=== PATIENT | female | born 1965 | race Two or more races ===

== ENCOUNTER 2020-06-11 08:34 | Day surgery (SDC) | payer OTHER, SELFPAY ==
[2020-06-04 13:52] VITALS: BMI 25.0
--- NOTE | 2020-06-10 10:11 | P.CONAN_ITS ---
Documented by User: Debra Apple 06/10/20 10:21 HPI - Anesthesia Eval Consult details Narrative: 55yo F for EGD and Colonoscopy [facility] Past Medical History Medical History (Updated 06/10/20 @ 10:20 by Debra Apple) Anxiety Asthma Difficulty swallowing Elevated cholesterol GERD (gastroesophageal reflux disease) History of bipolar disorder History of depression History of kidney stones HTN (hypertension) Hx of migraines Leukocytosis PONV (postoperative nausea and vomiting) Pulmonary nodule Thrombocytosis Thyroid cancer Thyroid nodule Vitamin D deficiency Surgical History Surgical History History of thyroid surgery History of total abdominal hysterectomy Hx of appendectomy Hx of cholecystectomy S/P excision of lipoma History of Problems with Anesthesia: Yes (PONV) Social History Social History (Updated 06/10/20 @ 10:15 by Debra Apple) Smoking Status: Current every day smoker Have you been hit, kicked, punched, or otherwise hurt by someone within the past year? If so, by whom?: No Advance Directives: No Advance Directives Information Provided: No Advance Directives on File: No Recently lost weight without trying: No Meds Allergies Allergy/AdvReac Type Severity Reaction Status Date / Time aspirin [ASPIRIN] Allergy Unknown ABD PAIN Unverified 06/04/20 13:35 morphine [MORPHINE] Allergy Unknown ABD PAIN Unverified 06/04/20 13:35 Sulfa (Sulfonamide Allergy Unknown HIVES Unverified 06/04/20 13:35 Antibiotics) [SULFA (SULFONAMIDE ANTIBIOTICS)] Home Medications Medication Instructions Recorded Confirmed Type amlodipine 5 mg PO DAILY 06/04/20 06/04/20 History atorvastatin 40 mg PO DAILY 06/04/20 06/04/20 History azelastine 1 spray INTRANASAL BID 06/04/20 06/04/20 History calcium citrate-vitamin D3 1 tab PO DAILY 06/04/20 06/04/20 History [Citracal plus D] chlorthalidone 25 mg PO DAILY 06/04/20 06/04/20 History cholecalciferol (vitamin D3) 25 mcg PO DAILY 06/04/20 06/04/20 History [Vitamin D3] conjugated estrogens [Premarin] 0.625 mg VAGINAL DAILY 06/04/20 06/04/20 History diclofenac potassium 50 mg PO BID 06/04/20 06/04/20 History fluticasone propionate [Flovent] 1 puff INHALATION BID 06/04/20 06/04/20 History gabapentin 100 mg PO TID 06/04/20 06/04/20 History lisinopril 10 mg PO DAILY 06/04/20 06/04/20 History montelukast 10 mg PO BEDTIME 06/04/20 06/04/20 History montelukast [Singulair] 10 mg PO BEDTIME 06/04/20 06/04/20 History nystatin 100,000 unit PO DAILY 06/04/20 06/04/20 History omeprazole 20 mg PO DAILY 06/04/20 06/04/20 History polyethylene glycol 3350 [Miralax] 17 g PO DAILY 06/04/20 06/04/20 History quetiapine 100 mg PO DAILY 06/04/20 06/04/20 History sennosides [senna] 17.2 mg PO BEDTIME PRN 06/04/20 06/04/20 History Exam Exam Date and Time: June 10, 2020 1011 Height,Weight and Vital Signs: Height 5 ft 4 in Weight 66.224 kg Pertinent Lab Results Pertinent Lab Results: 03/10/20 WBC 12.3(H), HGB 14.7, HCT 42.7, PLT 476(H) Documented by User: Alfonso Freitas MD 06/11/20 09:25 [facility] Past Medical History Medical History (Updated 06/10/20 @ 10:20 by Debra Apple) Anxiety Asthma Difficulty swallowing Elevated cholesterol GERD (gastroesophageal reflux disease) History of bipolar disorder History of depression History of kidney stones HTN (hypertension) Hx of migraines Leukocytosis PONV (postoperative nausea and vomiting) Pulmonary nodule Thrombocytosis Thyroid cancer Thyroid nodule Vitamin D deficiency Surgical History Surgical History History of thyroid surgery History of total abdominal hysterectomy Hx of appendectomy Hx of cholecystectomy S/P excision of lipoma Social History Social History (Updated 06/10/20 @ 10:15 by Dbera Apple) Smoking Status: Current every day smoker Have you been hit, kicked, punched, or otherwise hurt by someone within the past year? If so, by whom?: No Advance Directives: No Advance Directives Information Provided: No Advance Directives on File: No Recently lost weight without trying: No Meds Allergies Allergy/AdvReac Type Severity Reaction Status Date / Time aspirin [ASPIRIN] Allergy Unknown ABD PAIN Unverified 06/04/20 13:35 morphine [MORPHINE] Allergy Unknown ABD PAIN Unverified 06/04/20 13:35 Sulfa (Sulfonamide Allergy Unknown HIVES Unverified 06/04/20 13:35 Antibiotics) [SULFA (SULFONAMIDE ANTIBIOTICS)] Home Medications Medication Instructions Recorded Confirmed Type amlodipine 5 mg PO DAILY 06/04/20 06/04/20 History atorvastatin 40 mg PO DAILY 06/04/20 06/04/20 History azelastine 1 spray INTRANASAL BID 06/04/20 06/04/20 History calcium citrate-vitamin D3 1 tab PO DAILY 06/04/20 06/04/20 History [Citracal plus D] chlorthalidone 25 mg PO DAILY 06/04/20 06/04/20 History cholecalciferol (vitamin D3) 25 mcg PO DAILY 06/04/20 06/04/20 History [Vitamin D3] conjugated estrogens [Premarin] 0.625 mg VAGINAL DAILY 06/04/20 06/04/20 History diclofenac potassium 50 mg PO BID 06/04/20 06/04/20 History fluticasone propionate [Flovent] 1 puff INHALATION BID 06/04/20 06/04/20 History gabapentin 100 mg PO TID 06/04/20 06/04/20 History lisinopril 10 mg PO DAILY 06/04/20 06/04/20 History montelukast 10 mg PO BEDTIME 06/04/20 06/04/20 History montelukast [Singulair] 10 mg PO BEDTIME 06/04/20 06/04/20 History nystatin 100,000 unit PO DAILY 06/04/20 06/04/20 History omeprazole 20 mg PO DAILY 06/04/20 06/04/20 History polyethylene glycol 3350 [Miralax] 17 g PO DAILY 06/04/20 06/04/20 History quetiapine 100 mg PO DAILY 06/04/20 06/04/20 History sennosides [senna] 17.2 mg PO BEDTIME PRN 06/04/20 06/04/20 History Exam Airway Mallampati Class: II TM Dist: >3cm Neck ROM: Full Loose/Missing/Broken Teeth: No Heart: rrr Lungs: nl Other: ao3 Assessment and Plan Assessment Anesthesia Assessment: Anesthesia Plan Discussed and Chart Reviewed Final Anesthetic Review NPO: Yes ASA Class: II Final Preanesthetic Review: No Changes in Pt Med Stat, Meds/Allgs Chart Reviewed and Consent Obtained/Reviewed Patient Risk: Low Procedure Risk: Low Anesthetic Plan Anesthetic Plan: MAC: Disposition: Standard PACU
[2020-06-11 09:37] VITALS: BP 139/79; PULSE 76; RESP 18; TEMP 36.4; O2SAT 98
[2020-06-11] MEDS: Lactated Ringers 1,000 ML 100 ML IVCONT (09:46)
--- NOTE | 2020-06-11 10:03 | MHC.SHP ---
Pre-Procedural Eval Section B Chief Complaint: dysphagia,change in bowel habits Relevant Family History (Specify if Yes): No Relevant Social History: Tobacco Use Present Medications: see Short Stay Collaborative assessment Medical History: Significant History (asthma, HTN, hemorrhoids, kidney stones, anxiety, ) History of Previous Operations: Relevant previous surgery/procedure and date(s) (appendectomy, hysterectomy, cholecystectomy, hernia repair) Allergies: Allergies Allergy/AdvReac Type Severity Reaction Status Date / Time aspirin [ASPIRIN] Allergy Unknown ABD PAIN Verified 06/11/20 09:45 morphine [MORPHINE] Allergy Unknown ABD PAIN Verified 06/11/20 09:45 Sulfa (Sulfonamide Allergy Unknown HIVES Verified 06/11/20 09:45 Antibiotics) [SULFA (SULFONAMIDE ANTIBIOTICS)] Review of Systems Sugical H&P ROS: Negative: Constitution, Cardiovascular, Respiratory, Neurological, Psychiatric, Hem-Onc, Allergic/Immunologic, Gastrointestinal, Genitourinary, Musculoskeletal, Integumentary, Endocrine and Eyes/Ears/Nose/Throat Exam Surgical H&P Exam: Normal: HEENT, Normal: Heart, Normal: Lungs, Normal: Extremities, Normal: Abdomen, Normal: Skin and Normal: Neurological Plan Diagnosis/Plan: Unchanged Patient has been examined and remains a candidate for the planned procedure
--- NOTE | 2020-06-11 10:05 | P.BOP_ITS ---
Brief Operative Note Pre-op diagnosis: dysphagia, constipation Post-op diagnosis: same Procedure: Operative Information Procedure Description: EGD, Colonoscopy FLEXIBLE TRANSORAL UPPER GASTROINTESTINAL ENDOSCOPY AND COLONOSCOPY PROCEDURE NOTE UPPER ENDOSCOPY Consent: Indications for the procedure and potential complications of bleeding, perforation, reaction to medications and missed diagnosis were discussed with the patient and informed consent was obtained. Instrument: Olympus GIF H 190 J mid size upper endoscope Monitoring: Vital signs and clinical assessment, continuous EKG monitoring, Pulse oximetry, Carbon Dioxide monitoring and blood pressure monitoring were done throughout the procedure. Procedure: The patient was placed in the left lateral decubitis position and pre-procedure medications were administered and a bite block was placed. The endoscope was inserted into the mouth and advanced under direct vision to the third part of duodenum. A careful inspection was made as the upper endoscope was withdrawn including a retroflexed examination of the proximal stomach; Findings and interventions are described below. Findings: Larynx:normal Esophagus: GE junction at 36 cm, diaphragm hiatus at 36 cm, mild esophagits, random esophagus bx and bx from GEJ taken, balloon dilation to 20 mm at GEj and proximal esophagus,no tears seen Stomach: Normal mucosa. Biopsies were obtained. Grade 2 flap valve on retroflexed examination of the cardia. one fundic gland polyp seen, which is benign and harmless Duodenum: Normal bulb and descending duodenum, Intervention: Biopsies as noted above COLONOSCOPY Instrument: Olympus variable stiffness pediatric scope 190L Colonoscopy Monitoring: Vital signs and clinical assessment, continuous EKG monitoring, Pulse oximetry, Carbon Dioxide monitoring and blood pressure monitoring were done throughout the procedure. Colon withdrawal time was 16 minutes. Procedure: The patient was placed in the left lateral decubitis position and pre-procedure medications were administered. After a digital rectal examination of the ano-rectum, the video colonoscope was inserted into the rectum and advanced through the colon to the cecum/TI. The colonoscope was slowly withdrawn in a retrograde panoramic fashion and the colon mucosa was carefully examined including a retroflexed view of the rectum. Findings and interventions are described below. Procedure Difficulty: Findings: Terminal Ileum-unable to intubate due to looping and poor prep Cecum:normal Ascending Colon: normal Transverse Colon -normal Descending Colon:normal, 10 mm sessile polyp removed with cold snare Sigmoid Colon: normal Rectum: Retroflexion with moderate sized internal hemorrhoids, grade I, x 2 reectal polyps seen, one removed with forceps measuring 9 mm and another about 10 mm removed with cold snare. Anorectum - normal Colon preparation: [place] Bowel Preparation Scale Right colon; 1 Transverse colon: 2 Left colon; 1 (0 = Unprepared colon segment with mucosa not seen due to solid stool that cannot be cleared. 1 = Portion of mucosa of the colon segment seen, but other areas of the colon segment not well seen due to staining, residual stool and/or opaque liquid. 2 = Minor amount of residual staining, small fragments of stool and/or opaque liquid, but mucosa of colon segment seen well. 3 = Entire mucosa of colon segment seen well with no residual staining, small fragments of stool or opaque liquid) Impression and Post Procedure Diagnosis: Endoscopy Findings: mild esophagitis fundic gland polyp Colonoscopy Findings: internal hemorrhoids polyps poor prep Plan: Await Pathology results Repeat Colonoscopy in 1 year or earlier if clinically indicated, review prep and compliance High fiber diet leaflet avoid straining at stool, epsom salts and sitz bath, anusol supps or cream Above findings were reviewed with the patient and relevant handouts were provided if indicated. Surgeon: Silva Sandy MD Anesthesia: MAC Condition: stable Disposition: PACU
[2020-06-11 10:50] VITALS: BP 137/78; PULSE 87; RESP 16; TEMP 36.3; O2SAT 99
[2020-06-11 11:05] VITALS: BP 155/95; PULSE 79; RESP 16; O2SAT 99
[2020-06-11 11:19] VITALS: BP 148/85; PULSE 77; RESP 16; TEMP 36.1; O2SAT 98
--- NOTE | 2020-06-11 11:49 | HO.POSTANES ---
Post Anesthesia Evaluation Post Anesthesia Evaluation Vital Signs: Vital Signs Temp Pulse Resp BP Pulse Ox 06/11/20 11:19 97 F 77 16 148/85 H 98 06/11/20 11:05 79 16 155/95 H 99 06/11/20 10:50 97.4 F 87 16 137/78 99 06/11/20 09:37 97.5 F 76 18 139/79 98 Anesthesia: Monitored Mental Status: Awake Pain Control: Satisfactory Nausea/Vomiting: None Hydration: Adequate Anesthesia-Related Issues: No Anes. Related Issues
== END 2020-06-11 11:47 | disposition home or self-care (01) ==
PROVIDERS: Internal Medicine Gastroenterology; PCP Nurse Practitioner Family; Visit Provider Internal Medicine
PROC: (CPT 45385; principal; 2020-06-11 10:30)
DX: R19.4 Change in bowel habit (principal); K63.5 Polyp of colon; K62.1 Rectal polyp; K64.8 Other hemorrhoids; K29.50 Unspecified chronic gastritis without bleeding; K31.7 Polyp of stomach and duodenum; R13.10 Dysphagia, unspecified; K21.00 Gastro-esophageal reflux disease with esophagitis, without bleeding; I10 Essential (primary) hypertension; J45.909 Unspecified asthma, uncomplicated; E78.00 Pure hypercholesterolemia, unspecified; Z85.850 Personal history of malignant neoplasm of thyroid; Z90.49 Acquired absence of other specified parts of digestive tract; F17.200 Nicotine dependence, unspecified, uncomplicated; Z87.442 Personal history of urinary calculi; Z88.2 Allergy status to sulfonamides; Z88.8 Allergy status to other drugs, medicaments and biological substances
CPT/HCPCS: 45385; 43249; 43239; 88305; 88342; C1726; J3010

== ENCOUNTER 2020-06-25 15:51 | Outpatient (REF) | payer OTHER, SELFPAY ==
--- NOTE | 2020-06-25 16:00 | MM_ITS ---
EXAMINATION: MM SCREENING DIGITAL BREAST TOMOSYNTHESIS, BILATERAL CLINICAL INFORMATION: Screening. Asymptomatic. The lifetime risk of breast cancer based on the Tyrer-Cuzick Model is 13%. COMPARISON: Mammography: 06/20/2019, 05/25/2018, 09/12/2017 TECHNIQUE: Digital breast tomosynthesis is performed in both the craniocaudal and mediolateral oblique views along with computer-aided detection (CAD). Synthesized 2D images are generated from the tomosynthesis. FINDINGS: There are scattered areas of fibroglandular density (ACR BI-RADS breast composition Category b). There are no significant masses, abnormal calcifications, or other abnormalities. Again, there are multiple calcifications in the upper outer quadrants similar to prior exams. No significant changes. MM/MM tomosynthesis screening BI IMPRESSION: No significant changes from prior studies. ASSESSMENT: BI-RADS 2: Benign RECOMMENDATION: Routine annual mammography screening. This patient's information was entered into a reminder system with a target due date for their next mammogram.
== END 2020-06-25 15:52 | disposition home or self-care (01) ==
LOC: HO.MAMMO 15:51
PROVIDERS: PCP Nurse Practitioner Family; Visit Provider Nurse Practitioner Family
DX: Z12.31 Encounter for screening mammogram for malignant neoplasm of breast (principal)
CPT/HCPCS: 77063; 77067

== ENCOUNTER → 2020-07-08 12:37 | Outpatient (BNVA) | payer OTHER, SELFPAY | PROVIDERS: PCP Nurse Practitioner Family; Referring Provider Nurse Practitioner Family; Visit Provider Physician Assistant | DX: K21.9 Gastro-esophageal reflux disease without esophagitis (principal); K63.5 Polyp of colon; K64.8 Other hemorrhoids; Z79.899 Other long term (current) drug therapy; Z98.890 Other specified postprocedural states | CPT/HCPCS: 99212 ==

== ENCOUNTER → 2020-07-10 13:27 | Outpatient (BNVA) | payer OTHER, SELFPAY | PROVIDERS: PCP Nurse Practitioner Family; Referring Provider Nurse Practitioner Family; Visit Provider Hospitalist | DX: R91.8 Other nonspecific abnormal finding of lung field (principal); J45.909 Unspecified asthma, uncomplicated; C73 Malignant neoplasm of thyroid gland; K21.9 Gastro-esophageal reflux disease without esophagitis | CPT/HCPCS: 99212 ==

== ENCOUNTER 2020-07-13 09:12 | Outpatient (REF) | payer OTHER, SELFPAY | END 2020-07-13 09:13 | disposition home or self-care (01) | LOC: HO.HMGCLDS 09:12 | PROVIDERS: PCP Nurse Practitioner Family; Visit Provider Internal Medicine | DX: Z20.828 Contact with and (suspected) exposure to other viral communicable diseases (principal) | CPT/HCPCS: C9803; U0003 ==

== ENCOUNTER → 2020-08-24 08:35 | Outpatient (BNVA) | payer OTHER, SELFPAY | PROVIDERS: PCP Nurse Practitioner Family; Referring Provider Nurse Practitioner Family; Visit Provider Internal Medicine | DX: Z76.89 Persons encountering health services in other specified circumstances (principal) ==

== ENCOUNTER 2020-12-23 | Outpatient (REF) | payer OTHER, SELFPAY | END 2020-12-23 00:01 | disposition home or self-care (01) | LOC: HO.LNP | PROVIDERS: Visit Provider Nurse Practitioner Family | DX: Z20.822 Contact with and (suspected) exposure to COVID-19 (principal); R52 Pain, unspecified | CPT/HCPCS: U0003; U0005 ==

== ENCOUNTER 2020-12-24 11:28 | Outpatient (REF) | payer OTHER, SELFPAY | END 2020-12-24 11:29 | disposition home or self-care (01) | LOC: HO.LNP 11:28 | PROVIDERS: Visit Provider Nurse Practitioner Family | DX: Z13.89 Encounter for screening for other disorder (principal) ==

== ENCOUNTER 2020-12-29 13:39 | Outpatient (REF) | payer OTHER, SELFPAY ==
[2020-12-29 15:33] LABS: Estimated Glomerular Filt Rate > 60; Phosphorus 4.1 mg/dL (2.7-4.5)
[2020-12-29 16:01] LABS: Free T4 (Free Thyroxine) 1.13 ng/dL (0.71-1.85); Thyroid Stimulating Hormone 0.94 uIU/mL (0.32-4.0); Vitamin D 25-OH Total 30.7 ng/mL (>30)
[2020-12-30 12:56] LABS: Calcium (PTHI) 9.9 mg/dL (8.6-10.4); PTHI 39 pg/mL (14-64)
== END 2020-12-29 13:40 | disposition home or self-care (01) ==
LOC: HO.LAB 13:39
PROVIDERS: PCP Nurse Practitioner Family; Visit Provider Internal Medicine
DX: E21.3 Hyperparathyroidism, unspecified (principal); E04.2 Nontoxic multinodular goiter; E55.9 Vitamin D deficiency, unspecified; Z85.850 Personal history of malignant neoplasm of thyroid
CPT/HCPCS: 36415; 82040; 82306; 82310; 82565; 83970; 84100; 84439; 84443

== ENCOUNTER → 2021-01-04 12:30 | Outpatient (BNVA) | payer OTHER, SELFPAY | PROVIDERS: PCP Nurse Practitioner Family; Visit Provider Internal Medicine ==

== ENCOUNTER 2021-01-06 12:35 | Outpatient (REF) | payer OTHER, SELFPAY ==
[2021-01-06 14:26] LABS: Alanine Aminotransferase 47 U/L (0-31); Albumin Level 4.6 g/dL (3.5-5.0); Alkaline Phosphatase 70 U/L (39-117); Anion Gap 13 (12-20); Aspartate Amino Transferase 32 U/L (5-31); Bilirubin Total 0.8 mg/dL (0.0-1.0); Blood Urea Nitrogen 14 mg/dL (9-16); Calcium 9.9 mg/dL (8.4-10.2); Carbon Dioxide 30 mmol/L (22-29); Chloride 99 mmol/L (96-108); Cholesterol 209 mg/dL; Estimated Glomerular Filt Rate > 60; Glucose Fasting 90 mg/dL (60-99); HDL Cholesterol 53 mg/dL; LDL Cholesterol Calculated 110 mg/dl; Potassium 3.2 mmol/L (3.3-5.1); Sodium 139 mmol/L (135-145); Total Protein 7.3 g/dL (6.5-8.0); Triglycerides 230 mg/dL
[2021-01-06 14:49] LABS: TSH reflex Free T4 0.91 uIU/mL (0.32-4.0)
== END 2021-01-06 12:36 | disposition home or self-care (01) ==
LOC: HO.HMGCLDS 12:35
PROVIDERS: PCP Nurse Practitioner Family; Visit Provider Nurse Practitioner Family
DX: Z00.00 Encounter for general adult medical examination without abnormal findings (principal)
CPT/HCPCS: 36415; 80053; 80061; 84443

== ENCOUNTER 2021-01-08 11:55 | Outpatient (REF) | payer OTHER, SELFPAY ==
--- NOTE | ~2021-01-08 | XR_ITS ---
EXAMINATION: XR KNEE, LEFT CLINICAL INFORMATION: Pain COMPARISON: Previous knee x-ray June 2018 TECHNIQUE: Three views of the left knee. FINDINGS: The bones appear osteopenic. Bone alignment is normal. No fracture or dislocation is seen. Femoral tibial joints are normal. There are small osteophytes at the patellofemoral joint. There is no significant joint effusion. XR/XR knee LT 3V IMPRESSION: Osteopenia. Small osteophytes at the patellofemoral joint.
== END 2021-01-08 11:56 | disposition home or self-care (01) ==
LOC: HO.XRAY 11:55
PROVIDERS: PCP Nurse Practitioner Family; Visit Provider Student in an Organized Health Care Education/Training Program
DX: M25.562 Pain in left knee (principal); M79.7 Fibromyalgia
CPT/HCPCS: 73562; 99212

== ENCOUNTER 2021-01-12 14:20 | Outpatient (REF) | payer OTHER, SELFPAY ==
--- NOTE | ~2021-01-12 | US_ITS ---
EXAMINATION: US ABDOMEN COMPLETE CLINICAL INFORMATION: Abnormal levels of other serum enzymes. COMPARISON: X-ray abdomen dated 01/03/2020. Ultrasound abdomen complete dated 10/14/2019 and 05/22/2018. CT abdomen with intravenous contrast dated 03/27/2017. TECHNIQUE: Real-time imaging of the abdominal viscera. FINDINGS: PANCREAS: Normal. ABDOMINAL AORTA: The proximal, mid, and distal segments are normal in caliber. INFERIOR VENA CAVA: Visualized portions are normal. LIVER: The liver is normal in size. The liver contour is normal. Parenchymal echogenicity is normal. There is a small low-attenuation lesion in the left lobe that measures 1 x 0.7 x 1 cm. This has a slightly thickened echogenic wall and appears to have some internal echoes. This may represent a complex cyst. This measured 9 x 6 x 8 mm on previous abdominal ultrasound of October 2019. This is not appreciated on prior CT scan images. No other focal liver lesion is seen. There is no intrahepatic biliary duct dilatation seen. GALLBLADDER: Surgically absent. COMMON BILE DUCT: Normal in caliber measuring 0.45 cm in diameter. RIGHT KIDNEY: Normal. No hydronephrosis. No renal calculi or focal parenchymal lesions. The kidney measures 12.3 cm in maximum dimension. LEFT KIDNEY: Normal. No hydronephrosis. No renal calculi or focal parenchymal lesions. The kidney measures 13.7 cm in maximum dimension. SPLEEN: Normal. The spleen measures 8.2 cm in maximum dimension. FREE FLUID: None. US/US abdomen complete IMPRESSION: Small subcentimeter low-attenuation lesion in the left lobe of the liver, question representing a complex cyst. Otherwise, unremarkable exam.
[2021-01-12 16:58] LABS: Anion Gap 13 (12-20); Carbon Dioxide 33 mmol/L (22-29); Chloride 98 mmol/L (96-108); Potassium 3.5 mmol/L (3.3-5.1); Sodium 140 mmol/L (135-145)
[2021-01-13 08:16] LABS: HBS Num1 1.12 mIU/mL (0-7.99); HBc Num1 0.09 S/CO (0.00-0.79); HBsAGNum1 0.22 S/CO (0.00-0.99); Hepatitis B Core Antibody Nonreactive (Nonreactive); Hepatitis B Surface Antigen Negative (Negative); ~Hepatitis B Surface Antibody NONREACTIVE (Nonreactive)
[2021-01-13 08:39] LABS: Hepatitis A Antibody IgM 0.71 Index (0-0.79); ~HepC Num1 0.04 S/CO (0.00-0.79); ~Hepatitis A Antibody IgM Nonreactive (Nonreactive); ~Hepatitis C Antibody Nonreactive (Nonreactive)
== END 2021-01-12 14:21 | disposition home or self-care (01) ==
LOC: HO.HMGCX 14:20
PROVIDERS: PCP Nurse Practitioner Family; Visit Provider Nurse Practitioner Family
DX: E87.6 Hypokalemia (principal); R74.8 Abnormal levels of other serum enzymes
CPT/HCPCS: 36415; 76700; 80051; 86704; 86706; 86709; 86803; 87340

== ENCOUNTER 2021-01-20 12:24 | Outpatient (REF) | payer OTHER, SELFPAY ==
[2021-01-20 14:30] LABS: Anion Gap 13 (12-20); Carbon Dioxide 30 mmol/L (22-29); Chloride 100 mmol/L (96-108); Potassium 3.5 mmol/L (3.3-5.1); Sodium 139 mmol/L (135-145)
== END 2021-01-20 12:25 | disposition home or self-care (01) ==
LOC: HO.HMGCLDS 12:24
PROVIDERS: PCP Nurse Practitioner Family; Visit Provider Nurse Practitioner Family
DX: E87.6 Hypokalemia (principal)
CPT/HCPCS: 36415; 80051

== ENCOUNTER → 2021-01-26 13:18 | Outpatient (BNVA) | payer OTHER, SELFPAY | PROVIDERS: PCP Nurse Practitioner Family; Visit Provider Obstetrics & Gynecology ==

== ENCOUNTER → 2021-02-03 09:58 | Outpatient (BNVA) | payer OTHER, SELFPAY | PROVIDERS: PCP Nurse Practitioner Family; Referring Provider Nurse Practitioner Family; Visit Provider Physician Assistant ==

== ENCOUNTER 2021-02-03 11:27 | Observation (INO) | payer OTHER, SELFPAY ==
[2021-02-03] VITALS (7 sets, daily range): BP systolic 126–152; BP diastolic 69–86; PULSE 69–79; RESP 16–18; TEMP 36.4; O2SAT 96–99; BMI 25.7
--- NOTE | ~2021-02-03 | CT_ITS ---
EXAMINATION: CT ABDOMEN AND PELVIS WITH CONTRAST CLINICAL INFORMATION: Diffuse abdominal tenderness. Leukocytosis. Nausea. COMPARISON: Ultrasound of abdomen 07/24/2021 TECHNIQUE: Multidetector volumetric images were obtained from the superior aspect of the liver through the pubic symphysis following administration 85 mL of Omnipaque 350 intravenous contrast. Sagittal and coronal reformatted images were obtained on the technologist's workstation. Oral contrast: No This CT examination was performed using dose optimization techniques as appropriate, variously including the following: *Automated exposure control *Adjustment of mA and/or kV according to patient size (this includes techniques or standardized protocols for targeted exams where dose is matched to indication/reason for exam; i.e. extremities or head) *Use of iterative reconstruction technique DLP: 544 mGy-cm FINDINGS: LUNG BASES: The visualized lung bases are unremarkable. LIVER, GALLBLADDER, AND BILIARY TREE: The liver is normal in size, shape, and attenuation. No focal hepatic lesion or biliary ductal dilatation is present. Status post cholecystectomy PANCREAS: Unremarkable. SPLEEN: Unremarkable. ADRENAL GLANDS: Unremarkable. KIDNEYS AND URETERS: The kidneys are normal in size, shape, and attenuation. No hydronephrosis, hydroureter, or calculi seen. No perinephric stranding. Small cortical cyst mid lower pole of the left kidney. Density measurement 6 Hounsfield units. No follow-up imaging is recommended for simple renal cyst. BLADDER: Unremarkable. GASTROINTESTINAL TRACT: There is no acute abnormality. There is no bowel wall thickening /edema. There is no bowel obstruction. There is a moderate to large volume of stool in the colon. The appendix is nonvisualized . The small bowel loops are unremarkable. The stomach is normal. There is no hiatal hernia. ABDOMINAL WALL: No acute abnormality. No inflammation or fluid collection. Surgical mesh at the anterior abdominal wall without recurrent hernia. LYMPH NODES: Normal. VASCULAR: Vascular wall calcifications of aorta and iliac arteries. There is no aneurysm. PELVIC VISCERA: Status post hysterectomy. No pelvic abnormality. OSSEOUS STRUCTURES: Unremarkable. CT/CT abdomen pelvis w con IMPRESSION: No acute abnormality CT scan abdomen pelvis.
--- NOTE | ~2021-02-03 | MR_ITS ---
EXAMINATION: MR ABDOMEN WITHOUT AND WITH CONTRAST CLINICAL INFORMATION: Abdominal pain. COMPARISON: CT scan of the abdomen and pelvis dated 02/03/2021. TECHNIQUE: MR abdomen was performed without and with use of 7.5 mL intravenous Gadavist gadolinium contrast. Postcontrast images are performed in multiphase dynamic sequences. Imaging was performed in 3 planes. FINDINGS: LUNG BASES: The visualized lung bases are unremarkable. LIVER, GALLBLADDER, AND BILIARY TREE: No hepatic abnormality. Status post cholecystectomy. PANCREAS: Unremarkable. SPLEEN: Unremarkable. ADRENAL GLANDS: Unremarkable. KIDNEYS AND URETERS: Left kidney T2 hyperintense, nonenhancing posterior interpolar focus measuring 0.9 cm. GASTROINTESTINAL TRACT: No bowel obstruction. No ascites or fluid collection. ABDOMINAL WALL: Post surgical changes in the infraumbilical abdominal wall. No significant hernia is appreciated. LYMPH NODES: No lymphadenopathy. VASCULAR: Unremarkable. OSSEOUS STRUCTURES: Unremarkable. No suspicious abnormality. MR/MR abdomen wo/w con IMPRESSION: Small left renal cyst demonstrates benign features. No other significant abnormality.
[2021-02-03 13:09] LABS: MANUAL DIFF FLAG NO
[2021-02-03 13:12] LABS: Basophils Percent Auto 0.2 % (0-2); Eosinophils Absolute Auto 0.1 X10*3/uL (0.0-0.4); Eosinophils Percent Auto 0.4 % (0-4); Hemoglobin 13.8 g/dl (12.0-16.0); Imm Gran Abs Auto 0.33 X10*3/uL (0.00-0.03); Lymphocytes Absolute Auto 2.7 X10*3/uL (1.2-4.9); Lymphocytes Percent Auto 16.8 % (20-40); Mean Corpuscular HGB Conc 33.7 g/dl (31.0-35.0); Mean Corpuscular Hemoglobin 28.8 pg (27.0-33.0); Mean Corpuscular Volume 85.6 fL (80-98); Mean Platelet Volume 8.1 fL (9.4-12.3); Monocytes Absolute Auto 0.7 X10*3/uL (0.1-1.2); Monocytes Percent Auto 4.1 % (2-11); Neutrophils Absolute Auto 12.4 X10*3/uL (2.0-8.3); Neutrophils Percent Auto 76.5 % (45-73); Platelet Count 497 X10*3/uL (160-400); Red Blood Count 4.79 X10*6/uL (4.20-5.50); Red Cell Distribution Width 13.9 % (11.0-16.0); White Blood Count 16.2 X10*3/uL (4.8-10.8)
[2021-02-03 13:16] LABS: Glucose Urine UA NEG (NEG); Leukocyte Esterase Urine NEG (NEG); Nitrite Urine NEG (NEG); Specific Gravity - Urine 1.015 (1.005-1.025); Urine Blood NEG (NEG); Urine Ketones NEG (NEG); Urine Protein NEG (NEG-TRACE)
[2021-02-03 13:18] LABS: Appearance Urine HAZY; Color Urine YELLOW
[2021-02-03 13:50] LABS: Anion Gap 14 (12-20); Blood Urea Nitrogen 24 mg/dL (9-16); Calcium 9.8 mg/dL (8.4-10.2); Carbon Dioxide 31 mmol/L (22-29); Chloride 97 mmol/L (96-108); Creatinine Clr Calc Pharmacy 70.8; Estimated Glomerular Filt Rate > 60; Glucose Random 107 mg/dL (60-115); Potassium 3.4 mmol/L (3.3-5.1); Sodium 139 mmol/L (135-145)
[2021-02-03 14:42] LABS: Alanine Aminotransferase 278 U/L (0-31); Albumin Level 4.7 g/dL (3.5-5.0); Alkaline Phosphatase 107 U/L (39-117); Aspartate Amino Transferase 182 U/L (5-31); Bilirubin Direct 0.3 mg/dL (0.0-0.5); Bilirubin Total 0.6 mg/dL (0.0-1.0); Lipase 43 U/L (8-78); Magnesium 2.2 mg/dL (1.6-2.6); Total Protein 7.5 g/dL (6.5-8.0)
[2021-02-03] MEDS: 0.9 % Sodium Chloride 1,000 ML 999 ML IVCONT ×2 (14:49→15:48)
[2021-02-03] MEDS: ondansetron HCL 4 MG/2 ML VIAL IVPUSH (14:50)
[2021-02-03] MEDS: HYDROmorphone HCl 0.5 MG/0.5 ML SYRINGE IVPUSH ×2 (14:50→16:29)
[2021-02-03 14:54] LABS: INTERNATIONAL NORM RATIO 0.9 (0.9-1.1); Prothrombin Time 10.4 SEC (10.8-13.0)
[2021-02-03 14:57] LABS: Partial Thromboplastin Time 32.1 SEC (24.1-38.0)
[2021-02-03 15:08] LABS: Lactic Acid 2.4 mmol/L (0.5-2.0)
--- NOTE | 2021-02-03 15:26 | ED.ABDPAIN ---
HPI - Abdominal Pain General Chief Complaint: Abdominal Pain Stated Complaint: abd pain Time Seen by Provider: 02/03/21 14:06 Source: patient Mode of arrival: ambulatory History of Present Illness HPI narrative: 55-year-old female with a past medical history anxiety, asthma, depression, hyperlipidemia, GERD, fibromyalgia, hyperparathyroid, s/p cholecystectomy/appendectomy/total abdominal hysterectomy to the ED from GI office for diffuse abdominal pain, nausea, decreased p.o. intake x3 days. Admits pain radiates to back. Reports had abdomen ultrasound recently which showed liver cyst. Denies fever, chills, diarrhea/constipation, dysuria/hematuria MD elicited complaint: abdominal pain Related Data Home Medications Medication Instructions Recorded Confirmed calcium citrate-vitamin D3 1 tab PO DAILY 06/04/20 01/08/21 [Citracal plus D] conjugated estrogens [Premarin] 0.625 mg VAGINAL DAILY 06/04/20 01/08/21 montelukast [Singulair] 10 mg PO BEDTIME 06/04/20 01/08/21 polyethylene glycol 3350 [Miralax] 17 g PO DAILY 06/04/20 01/08/21 quetiapine 100 mg PO DAILY 06/04/20 01/08/21 gabapentin 600 mg tablet 600 mg PO TID 12/31/20 01/08/21 loratadine 10 mg tablet 10 mg PO DAILY 12/31/20 01/08/21 prazosin 2 mg capsule 2 mg PO BEDTIME 12/31/20 01/08/21 fluoxetine 10 mg tablet 30 mg PO DAILY tab 01/04/21 01/08/21 fluvoxamine 100 mg tablet 100 mg PO BEDTIME 01/04/21 01/08/21 hydroxyzine HCl 50 mg tablet 50 mg PO BEDTIME tab 01/04/21 01/08/21 Previous Rx's Medication Instructions Recorded atorvastatin 40 mg tablet 40 mg PO DAILY 90 Days #90 tab 06/26/20 hydrocortisone 2.5 % topical cream 1 applic DE BID PRN #30 g 07/08/20 with perineal applicator omeprazole 20 mg capsule,delayed 20 mg PO DAILY #30 cap 07/08/20 release albuterol sulfate 90 mcg/actuation 2 inh INHALATION Q6H PRN 30 Days 07/10/20 aerosol inhaler #18 g azelastine 137 mcg (0.1 %) nasal 1 spray INTRANASAL BID 30 Days #30 11/06/20 spray aerosol ml fluticasone propionate 110 1 puff INHALATION BID 30 Days #12 g 07/10/20 mcg/actuation HFA aerosol inhaler magnesium citrate 150 ml PO BID #1480 ml 07/16/20 cholecalciferol (vitamin D3) 25 25 mcg PO DAILY #30 tab 09/14/20 mcg (1,000 unit) tablet hydroxyzine HCl 25 mg tablet 25 mg PO Q8H PRN #90 tab 11/17/20 gabapentin 300 mg capsule 300 mg PO TID #90 cap 12/10/20 sennosides 8.6 mg tablet 17.2 mg PO BEDTIME PRN #60 tab 12/10/20 amlodipine 5 mg tablet 5 mg PO DAILY #30 tab 01/04/21 diclofenac sodium 50 mg 50 mg PO BID PRN #60 tab 01/04/21 tablet,delayed release sumatriptan succinate 25 mg tablet 25 mg PO ONCE PRN 30 Days #12 tab 01/04/21 diclofenac sodium 1 % topical gel 2 g TOPICAL BID PRN #100 g 01/05/21 polyethylene glycol 3350 17 gram 17 g PO DAILY #30 packet 01/07/21 oral powder packet chlorthalidone 25 mg tablet 25 mg PO DAILY #30 tab 01/25/21 tizanidine 2 mg tablet 4 mg PO BID PRN #60 tab 01/25/21 conjugated estrogens 0.625 mg/gram 0.625 mg VAGINAL DAILY #30 g 01/26/21 vaginal cream hydrocortisone valerate 0.2 % 1 appl TOPICAL BID PRN 30 Days #45 01/31/21 topical cream g potassium chloride 10 mEq 10 meq PO BID 15 Days #30 cap 02/02/21 capsule,extended release duloxetine 30 mg capsule,delayed 30 mg PO DAILY #30 cap 02/03/21 release Allergies Allergy/AdvReac Type Severity Reaction Status Date / Time Sulfa (Sulfonamide Allergy Unknown HIVES Verified 02/03/21 12:28 Antibiotics) [SULFA (SULFONAMIDE ANTIBIOTICS)] aspirin [ASPIRIN] AdvReac Unknown ABD PAIN Verified 02/03/21 14:27 morphine [MORPHINE] AdvReac Unknown ABD PAIN Verified 02/03/21 14:27 Review of Systems Review of Systems Constitutional: No Fever, No Chills Cardiovascular: No Chest Pain, No SOB Respiratory: No Cough, No Dyspnea Gastrointestinal: + Nausea, No Vomiting, No Diarrhea, No Constipation, + Abdominal pain, No Hematochezia, No Melena Genitourinary: No Dysuria, No Urinary Frequency, No Hematuria, No Flank Pain Musculoskeletal: No joint pain, No Myalgias Skin: No Skin Lesions, No rash Neuro: No Weakness, No Numbness, No Dizziness, No Headache Yes all other systems are reviewed and are negative Physical Exam Vital Signs: Vital Signs: Last Vital Signs Temp 97.6 F 02/03/21 12:23 Pulse 72 02/03/21 14:52 Resp 18 02/03/21 14:52 BP 126/70 02/03/21 14:52 Pulse Ox 96 02/03/21 14:52 Body Mass Index 25.7 Const: General: cooperative and no acute distress Orientation/consciousness: patient oriented x3 Limitations: no limitations HENMT: Head: Yes normal to inspection Ears: hearing grossly normal bilaterally General nose exam: Normal external nose present Face and sinus: Yes normal facial exam Eyes: General: appearance normal, both eyes and all related structures EOM: EOMs intact bilaterally Neck: Neck: Yes normal visual inspection Resp: Effort & Inspection: normal respiratory effort Auscultation: clear to auscultation bilaterally Cardio: Rate: regular rate Heart sounds: S1 normal heart sound present and S2 normal heart sound present GI: Inspection: Yes normal to inspection Palpation (GI): Soft to palpation, Tenderness to palpation present (GI) (Diffusely), no guarding and not rigid : General: Yes no CVA tenderness Back/Spine/Pelvis: Back: no CVA tenderness Skin: Rashes: no rashes Wounds: no wounds Neuro: General: patient oriented x3 Extrem: General: Yes normal to inspection Course Course Course Narrative: -noted leukocytosis of 16.2 -1508--infection suspected at this time > Empiric IV Zosyn ordered. Lactic acidosis of 2.4, BUN elevated at 24 from dehydration/decreased p.o. intake. AST/ALT acute on chronically elevated (higher than priors) -UA negative 1719--CT abdomen pelvis w con IMPRESSION: No acute abnormality CT scan abdomen pelvis >> case discussed with surgery Dr. Walton, he will evaluate patient -ED care transferred to [facility] Guadalupe pending disposition MDM - Abdominal Pain MDM Narrative Medical decision making narrative: 55-year-old female with a past medical history anxiety, asthma, depression, hyperlipidemia, GERD, fibromyalgia, hyperparathyroid, s/p cholecystectomy/appendectomy/total abdominal hysterectomy to the ED from GI office for diffuse abdominal pain, nausea, decreased p.o. intake x3 days. On exam vital signs stable, NAD/nontoxic appearing, abdomen is soft diffusely tender, no rebound or guarding, no CVAT. Concern for intra-abdominal infection vs SBO vs acute on chronic liver disease vs dehydration secondary to nausea Plan: Labs, UA, CT AP, IVF, reassess Lab Data Result diagrams: 02/03/21 13:02 02/03/21 13:02 Labs: Lab Results 02/03/21 02/03/21 02/03/21 Range/Units 13:02 13:02 13:02 WBC 16.2 H (4.8-10.8) X10*3/uL RBC 4.79 (4.20-5.50) X10*6/uL Hgb 13.8 (12.0-16.0) g/dl Hct 41.0 (37-47) % MCV 85.6 (80-98) fL MCH 28.8 (27.0-33.0) pg MCHC 33.7 (31.0-35.0) g/dl RDW 13.9 (11.0-16.0) % Plt Count 497 H (160-400) X10*3/uL MPV 8.1 L (9.4-12.3) fL Immature Gran % (Auto) 2.0 H (0.0-0.4) % Neut % (Auto) 76.5 H (45-73) % Lymph % (Auto) 16.8 L (20-40) % [place] % (Auto) 4.1 (2-11) % Eos % (Auto) 0.4 (0-4) % Baso % (Auto) 0.2 (0-2) % Lymph # (Auto) 2.7 (1.2-4.9) X10*3/uL [place] # (Auto) 0.7 (0.1-1.2) X10*3/uL Eos # (Auto) 0.1 (0.0-0.4) X10*3/uL Baso # (Auto) 0.0 (0.0-0.2) X10*3/uL Abs Immat Gran (auto) 0.33 H (0.00-0.03) X10*3/uL Absolute Neuts (auto) 12.4 H (2.0-8.3) X10*3/uL Absolute Nucleated RBC 0.000 (0.0-0.012) X10*3/uL Nucleated RBC % (auto) 0.0 (0.0-0.2) /100WBC PT (10.8-13.0) SEC INR (0.9-1.1) APTT (24.1-38.0) SEC Sodium 139 (135-145) mmol/L Potassium 3.4 (3.3-5.1) mmol/L Chloride 97 (96-108) mmol/L Carbon Dioxide 31 H (22-29) mmol/L Anion Gap 14 (12-20) BUN 24 H D (9-16) mg/dL Creatinine 0.87 (0.5-1.4) mg/dL Estim Creat Clear Calc 70.8 Estimated GFR > 60 Random Glucose 107 (60-115) mg/dL Lactic Acid (0.5-2.0) mmol/L Calcium 9.8 (8.4-10.2) mg/dL Magnesium 2.2 (1.6-2.6) mg/dL Total Bilirubin 0.6 (0.0-1.0) mg/dL Direct Bilirubin 0.3 (0.0-0.5) mg/dL AST 182 H (5-31) U/L ALT 278 H (0-31) U/L Alkaline Phosphatase 107 D (39-117) U/L Total Protein 7.5 (6.5-8.0) g/dL Albumin 4.7 (3.5-5.0) g/dL Lipase 43 (8-78) U/L Urine Color YELLOW Urine Appearance HAZY Urine pH 7.0 (5.0-8.0) Ur Specific [place] 1.015 (1.005-1.025) Urine Protein NEG (NEG-TRACE) MG/DL Urine Glucose (UA) NEG (NEG) MG/DL Urine Ketones NEG (NEG) MG/DL Urine Blood NEG (NEG) Urine Nitrite NEG (NEG) Ur Leukocyte Esterase NEG (NEG) 02/03/21 02/03/21 Range/Units 14:35 14:42 WBC (4.8-10.8) X10*3/uL RBC (4.20-5.50) X10*6/uL Hgb (12.0-16.0) g/dl Hct (37-47) % MCV (80-98) fL MCH (27.0-33.0) pg MCHC (31.0-35.0) g/dl RDW (11.0-16.0) % Plt Count (160-400) X10*3/uL MPV (9.4-12.3) fL Immature Gran % (Auto) (0.0-0.4) % Neut % (Auto) (45-73) % Lymph % (Auto) (20-40) % [place] % (Auto) (2-11) % Eos % (Auto) (0-4) % Baso % (Auto) (0-2) % Lymph # (Auto) (1.2-4.9) X10*3/uL [place] # (Auto) (0.1-1.2) X10*3/uL Eos # (Auto) (0.0-0.4) X10*3/uL Baso # (Auto) (0.0-0.2) X10*3/uL Abs Immat Gran (auto) (0.00-0.03) X10*3/uL Absolute Neuts (auto) (2.0-8.3) X10*3/uL Absolute Nucleated RBC (0.0-0.012) X10*3/uL Nucleated RBC % (auto) (0.0-0.2) /100WBC PT 10.4 L (10.8-13.0) SEC INR 0.9 (0.9-1.1) APTT 32.1 (24.1-38.0) SEC Sodium (135-145) mmol/L Potassium (3.3-5.1) mmol/L Chloride (96-108) mmol/L Carbon Dioxide (22-29) mmol/L Anion Gap (12-20) BUN (9-16) mg/dL Creatinine (0.5-1.4) mg/dL Estim Creat Clear Calc Estimated GFR Random Glucose (60-115) mg/dL Lactic Acid 2.4 H* (0.5-2.0) mmol/L Calcium (8.4-10.2) mg/dL Magnesium (1.6-2.6) mg/dL Total Bilirubin (0.0-1.0) mg/dL Direct Bilirubin (0.0-0.5) mg/dL AST (5-31) U/L ALT (0-31) U/L Alkaline Phosphatase (39-117) U/L Total Protein (6.5-8.0) g/dL Albumin (3.5-5.0) g/dL Lipase (8-78) U/L Urine Color Urine Appearance Urine pH (5.0-8.0) Ur Specific [place] (1.005-1.025) Urine Protein (NEG-TRACE) MG/DL Urine Glucose (UA) (NEG) MG/DL Urine Ketones (NEG) MG/DL Urine Blood (NEG) Urine Nitrite (NEG) Ur Leukocyte Esterase (NEG) Discharge Plan Discharge Clinical Impression: Abdominal pain Qualifiers: Abdominal location: generalized Qualified Code(s): R10.84 - Generalized abdominal pain Prescriptions: No Action atorvastatin 40 mg tablet 40 mg PO DAILY 90 Days Qty: 90 RF: 1 magnesium citrate Solution 150 ml PO BID Qty: 1480 RF: 0 cholecalciferol (vitamin D3) [Vitamin D3] 25 mcg (1,000 unit) tablet 25 mcg PO DAILY Qty: 30 RF: 11 hydroxyzine HCl 25 mg tablet 25 mg PO Q8H PRN (Reason: for itch) Qty: 90 RF: 2 gabapentin 300 mg capsule 300 mg PO TID Qty: 90 RF: 2 sennosides [Senna Laxative] 8.6 mg tablet 17.2 mg PO BEDTIME PRN (Reason: for constipation) Qty: 60 RF: 2 sumatriptan succinate 25 mg tablet 25 mg PO ONCE PRN (Reason: migraine headache) 30 Days Qty: 12 RF: 3 amlodipine 5 mg tablet 5 mg PO DAILY Qty: 30 RF: 4 diclofenac sodium 50 mg tablet,delayed release (DR/EC) 50 mg PO BID PRN (Reason: for pain) Qty: 60 RF: 1 diclofenac sodium 1 % gel 2 g topical BID PRN (Reason: pain) Qty: 100 RF: 3 polyethylene glycol 3350 [Purelax] 17 gram powder in packet 17 g PO DAILY Qty: 30 RF: 3 tizanidine 2 mg tablet 4 mg PO BID PRN (Reason: for muscle spasm) Qty: 60 RF: 0 chlorthalidone 25 mg tablet 25 mg PO DAILY Qty: 30 RF: 2 hydrocortisone valerate 0.2 % cream 1 appl topical BID PRN (Reason: skin irritation) 30 Days Qty: 45 RF: 2 potassium chloride 10 mEq capsule, extended release 10 meq PO BID 15 Days Qty: 30 RF: 0 duloxetine 30 mg capsule,delayed release(DR/EC) 30 mg PO DAILY Qty: 30 RF: 2 quetiapine 100 mg Tablet 100 mg PO DAILY RF: 0 Premarin 0.625 mg/gram Cream 0.625 mg VAGINAL DAILY RF: 0 calcium citrate-vitamin D3 [Citracal plus D] 250 mg calcium- 200 unit Tablet 1 tab PO DAILY RF: 0 polyethylene glycol 3350 [Miralax] 17 gram Powder In Packet 17 g PO DAILY RF: 0 montelukast [Singulair] 10 mg Tablet 10 mg PO BEDTIME RF: 0 prazosin 2 mg capsule 2 mg PO BEDTIME RF: 0 loratadine 10 mg tablet 10 mg PO DAILY RF: 0 gabapentin 600 mg tablet 600 mg PO TID RF: 0 hydroxyzine HCl 50 mg tablet 50 mg PO BEDTIME RF: 0 Premarin 0.625 mg/gram cream 0.625 mg vaginal DAILY Qty: 30 RF: 11 azelastine 137 mcg (0.1 %) aerosol,spray 1 spray INTRANASAL BID 30 Days Qty: 30 RF: 11 fluticasone propionate 110 mcg/actuation HFA aerosol inhaler 1 puff INHALATION BID 30 Days Qty: 12 RF: 11 albuterol sulfate 90 mcg/actuation HFA aerosol inhaler 2 inh inhalation Q6H PRN (Reason: shortness of breath or wheezing) 30 Days Qty: 18 RF: 12 omeprazole 20 mg capsule,delayed release(DR/EC) 20 mg PO DAILY Qty: 30 RF: 11 hydrocortisone [Proctozone-HC] 2.5 % cream with perineal applicator 1 applic DE BID PRN (Reason: hemorrhoids) Qty: 30 RF: 3 fluoxetine 10 mg tablet 30 mg PO DAILY RF: 0 fluvoxamine 100 mg tablet 100 mg PO BEDTIME RF: 0 PMFSH Past Medical History Attestation statement: The following information was validated with the patient. Medical History (Updated 02/03/21 @ 17:21 by SOLEDAD Alegre) Acid reflux Anxiety Asthma Asthma Depression Difficulty swallowing Elevated cholesterol Fibromyalgia GERD (gastroesophageal reflux disease) History of bipolar disorder History of depression History of kidney stones History of thyroid cancer HTN (hypertension) Hx of migraines Hyperparathyroidism Leukocytosis Multinodular thyroid Osteoporosis PONV (postoperative nausea and vomiting) Pulmonary nodule Pulmonary nodules Thrombocytosis Thyroid cancer Thyroid cancer Thyroid nodule Vitamin D deficiency Vitamin D deficiency Surgical History H/O colonoscopy H/O esophagogastroduodenoscopy History of bilateral oophorectomy History of thyroid surgery History of total abdominal hysterectomy Hx of appendectomy Hx of cholecystectomy S/P excision of lipoma Family History Family History Father Diabetes mellitus Mother HTN (hypertension) High cholesterol Maternal Grandfather Myocardial infarction Maternal Grandmother No problems noted. Paternal Grandfather No problems noted. Paternal Grandmother No problems noted. Social History Social History Cigarettes Per Day: 5 Advance Directives: No Advance Directives Information Provided: Yes Patient : No (UNKNOWN)
[2021-02-03] MEDS: Piperacillin Sodium/Tazobactam 3.375 GM in 0.9 % Sodium Chloride 50 ML IV (15:50)
[2021-02-03 16:38] LABS: Reflex Lactate? Lactic Acid Added
[2021-02-03] MEDS: iohexoL 350 MG/ML 100 ML INFUS..BTL 85 ML IV (16:47)
--- NOTE | 2021-02-03 17:49 | PC.NURSE ---
Total of 2,100 ml of IVF per sepsis protocol completed at this time.
[2021-02-03] MEDS: Lidocaine HCl Viscous 2 % 15 ML SOLUTION MUCOUS MEM (18:06)
[2021-02-03] MEDS: Famotidine/PF 20 MG/2 ML VIAL IVPUSH (18:07)
[2021-02-03] MEDS: Magnesium Hydrox/Alum Hydrox 30 ML ORAL.SUSP PO (18:07)
[2021-02-03 20:09] LABS: COVID-19 Test Negative (Negative); IDNOW Serial# 08D9AD1C
--- NOTE | 2021-02-03 21:56 | PM.IMHP ---
History of Present Illness Date of Service: 02/03/21 Chief Complaint: abdominal pain This is a 55-year-old female with an extensive past medical history includes asthma, depression, bipolar disorder, hyperlipidemia, fibromyalgia, GERD, migraine, hyperthyroidism, thyroid cancer status post thyroidectomy, who presents to the hospital with complaints of abdominal pain. Patient reports that the abdominal pain is at the epigastric area or radiating all the way to the lower abdomen and around her back to the center of her back, the pain is 20/10, is been going on for 3 days, the pain is squeezing/strangulating, feels that she can take a deep breath every time she feels these pain episodes. Reports that the pain is constant with no relieving or exacerbating factors. She denies any headache, no change in vision, no chest pain, no shortness of breath, no nausea or vomiting, no diarrhea constipation, no urinary symptoms and no lower extremity edema Patient gives me a very extensive history about a abdominal procedure status post mesh placement at the abdominal wall with complications although this was in the remote past. Patient hemodynamically stable with no significant abnormal vitals For WBC count of 16.2 lactic acid of 2.4 that resolved , AST of 182, ALT of 278 UA negative No acute abnormality seen on CT scan of abdomen or pelvis Patient received multiple rounds of IV Dilaudid in the ED with intractable pain and therefore will be admitted for observation Review of Systems Review of Systems: Yes all other systems are reviewed and are negative [facility] Medical History Acid reflux Anxiety Asthma Asthma Depression Difficulty swallowing Elevated cholesterol Fibromyalgia GERD (gastroesophageal reflux disease) History of bipolar disorder History of depression History of kidney stones History of thyroid cancer HTN (hypertension) Hx of migraines Hyperparathyroidism Leukocytosis Multinodular thyroid Osteoporosis PONV (postoperative nausea and vomiting) Pulmonary nodule Pulmonary nodules Thrombocytosis Thyroid cancer Thyroid cancer Thyroid nodule Vitamin D deficiency Vitamin D deficiency Family History Father Diabetes mellitus Mother HTN (hypertension) High cholesterol Maternal Grandfather Myocardial infarction Maternal Grandmother No problems noted. Paternal Grandfather No problems noted. Paternal Grandmother No problems noted. Surgical History H/O colonoscopy H/O esophagogastroduodenoscopy History of bilateral oophorectomy History of thyroid surgery History of total abdominal hysterectomy Hx of appendectomy Hx of cholecystectomy S/P excision of lipoma Social History Household Members: None Housing: Apartment Do you presently have visiting nurse or other home services: Yes Patient Tobacco Use Status: Current everyday Tobacco user Tobacco use type: Cigarette Cigarettes Per Day: 5 Smoked in Last 30 Days: Yes e-Cigarette/Vaping Use: Never Used Patient Interested in Nicotine Replacement: No Patient Given Instructions on How to Stop Smoking: No Second Hand Smoke Exposure: No Use of substances other than those prescribed or required for medical reasons: No Have you been hit, kicked, punched, or otherwise hurt by someone within the past year? If so, by whom?: No Do you feel safe in your current relationship?: Yes Is there a partner from a previous relationship who is making you feel unsafe now?: No Are you made to feel afraid or neglected: No Advance Directives: No Advance Directives Information Provided: Yes Do you have thoughts of harming others: None Do you have a plan to hurt others: No Plan Recently lost weight without trying: Unsure Eating poorly because of decreased appetite: Yes Patient : No : No Poor oral hygiene: No Meds Allergies Allergy/AdvReac Type Severity Reaction Status Date / Time Sulfa (Sulfonamide Allergy Unknown HIVES Verified 02/03/21 12:28 Antibiotics) [SULFA (SULFONAMIDE ANTIBIOTICS)] aspirin [ASPIRIN] AdvReac Unknown ABD PAIN Verified 02/03/21 14:27 morphine [MORPHINE] AdvReac Unknown ABD PAIN Verified 02/03/21 14:27 Active Medications: Current Medications Generic Name Dose Route Start Last Admin Trade Name Freq PRN Reason Stop Dose Admin Oxycodone HCl 5 mg 02/03/21 21:45 Oxycodone Hcl Immed Release 5 Mg Tablet PO Q6H PRN Pain, Severe (Pain Scale 7-10) Home Medications Medication Instructions Recorded Confirmed Last Taken Type montelukast [Singulair] 10 mg PO BEDTIME 06/04/20 02/03/21 Unknown History polyethylene glycol 3350 [Miralax] 17 g PO DAILY 06/04/20 02/03/21 Unknown History quetiapine 100 mg PO BEDTIME 06/04/20 02/03/21 Unknown History gabapentin 600 mg tablet 600 mg PO TID 12/31/20 02/03/21 Unknown History loratadine 10 mg tablet 10 mg PO DAILY 12/31/20 02/03/21 Unknown History prazosin 2 mg capsule 2 mg PO BEDTIME 12/31/20 02/03/21 Unknown History fluvoxamine 100 mg tablet 100 mg PO BEDTIME 01/04/21 02/03/21 Unknown History hydroxyzine HCl 50 mg tablet 150 mg PO BEDTIME PRN tab 01/04/21 02/03/21 Unknown History hydroxyzine HCl 50 mg PO DAILY PRN 02/03/21 02/03/21 Unknown History Physical Exam Vital Signs and Narrative: Vital Signs: Last Vital Signs Temp 97.6 F 02/03/21 12:23 Pulse 74 02/03/21 21:02 Resp 16 02/03/21 21:02 BP 152/69 H 02/03/21 21:02 Pulse Ox 99 02/03/21 21:02 Body Mass Index 25.7 Const: Other: During my interview of the patient, she is sitting comfortably in bed, with no clinical evidence of distress due to pain, she is able to give complete history General: cooperative and no acute distress Orientation/consciousness: patient oriented x3 Eyes: General: appearance normal, both eyes and all related structures Resp: Effort & Inspection: normal respiratory effort and able to speak in complete sentences Auscultation: clear to auscultation bilaterally Cardio: Rate: regular rate Rhythm: regular rhythm GI: Other: Patient grimaces and jobs with the slightest touch of the abdominal wall With no pressure placed patient starts guarding Palpation (GI): Soft to palpation Skin: General skin exam: no rashes or lesions noted Neuro: General: patient oriented x3 Cognition (Neuro): normal cognition Extrem: General: Yes normal to inspection and Yes no pedal edema Results Labs CBC and Chem 7: 02/03/21 13:02 02/03/21 13:02 Labs: Laboratory Results - last 24 hr 02/03/21 02/03/21 02/03/21 13:02 13:02 13:02 MCV 85.6 MCH 28.8 MCHC 33.7 RDW 13.9 Plt Count 497 H MPV 8.1 L Immature Gran % (Auto) 2.0 H Neut % (Auto) 76.5 H Lymph % (Auto) 16.8 L [place] % (Auto) 4.1 Eos % (Auto) 0.4 Baso % (Auto) 0.2 Lymph # (Auto) 2.7 [place] # (Auto) 0.7 Eos # (Auto) 0.1 Baso # (Auto) 0.0 Abs Immat Gran (auto) 0.33 H Absolute Neuts (auto) 12.4 H Absolute Nucleated RBC 0.000 Nucleated RBC % (auto) 0.0 PT INR APTT Anion Gap 14 Estim Creat Clear Calc 70.8 Estimated GFR > 60 Random Glucose 107 Lactic Acid Lactic Acid Fup @ 2Hr Calcium 9.8 Magnesium 2.2 Total Bilirubin 0.6 Direct Bilirubin 0.3 AST 182 H ALT 278 H Alkaline Phosphatase 107 D Total Protein 7.5 Albumin 4.7 Lipase 43 Urine Color YELLOW Urine Appearance HAZY Urine pH 7.0 Ur Specific [place] 1.015 Urine Protein NEG Urine Glucose (UA) NEG Urine Ketones NEG Urine Blood NEG Urine Nitrite NEG Ur Leukocyte Esterase NEG COVID-19 (KARY) COVID-19 [employer] Com 02/03/21 02/03/21 02/03/21 14:35 14:42 17:00 MCV MCH MCHC RDW Plt Count MPV Immature Gran % (Auto) Neut % (Auto) Lymph % (Auto) [place] % (Auto) Eos % (Auto) Baso % (Auto) Lymph # (Auto) [place] # (Auto) Eos # (Auto) Baso # (Auto) Abs Immat Gran (auto) Absolute Neuts (auto) Absolute Nucleated RBC Nucleated RBC % (auto) PT 10.4 L INR 0.9 APTT 32.1 Anion Gap Estim Creat Clear Calc Estimated GFR Random Glucose Lactic Acid 2.4 H* Lactic Acid Fup @ 2Hr 2.0 Calcium Magnesium Total Bilirubin Direct Bilirubin AST ALT Alkaline Phosphatase Total Protein Albumin Lipase Urine Color Urine Appearance Urine pH Ur Specific [place] Urine Protein Urine Glucose (UA) Urine Ketones Urine Blood Urine Nitrite Ur Leukocyte Esterase COVID-19 (KARY) COVID-19 [employer] Com 02/03/21 19:16 MCV MCH MCHC RDW Plt Count MPV Immature Gran % (Auto) Neut % (Auto) Lymph % (Auto) [place] % (Auto) Eos % (Auto) Baso % (Auto) Lymph # (Auto) [place] # (Auto) Eos # (Auto) Baso # (Auto) Abs Immat Gran (auto) Absolute Neuts (auto) Absolute Nucleated RBC Nucleated RBC % (auto) PT INR APTT Anion Gap Estim Creat Clear Calc Estimated GFR Random Glucose Lactic Acid Lactic Acid Fup @ 2Hr Calcium Magnesium Total Bilirubin Direct Bilirubin AST ALT Alkaline Phosphatase Total Protein Albumin Lipase Urine Color Urine Appearance Urine pH Ur Specific [place] Urine Protein Urine Glucose (UA) Urine Ketones Urine Blood Urine Nitrite Ur Leukocyte Esterase COVID-19 (KARY) Negative COVID-19 Clin Com See Note Imaging Radiologist's Impressions: Impressions Abdomen/Pelvis CT 02/03/21 16:30 IMPRESSION: No acute abnormality CT scan abdomen pelvis. Assessment and Plan (1) Abdominal pain: Qualifiers: Abdominal location: generalized Qualified Code(s): R10.84 - Generalized abdominal pain Status: Acute (2) Lactic acidosis: Status: Acute This is a 55-year-old female with an extensive past medical history as above who presents to the hospital with abdominal pain # intractable abdominal pain - unclear etiology - CT abdomen negative - has no evidence of infection on labs - exam not diagnostic as patient grimaces and germs with slightest touch of the abdominal wall - at this time will admit for observation - consult Gastroenterology to help with any recommendation/evaluation # lactic acidosis - possibly secondary to dehydration - resolved with IV fluids - no evidence of infection, no leukocytosis, afebrile, no hypotension, no hypoxia - monitor # hypertension -stable -continue amlodipine and chlorthalidone # hyperlipidemia - continue statin # mood disorder including bipolar and depression - continue home medications DVT prophylaxis: Lovenox
[2021-02-03] MEDS: Ketorolac Tromethamine 30 MG/ML VIAL IVPUSH (22:15)
--- NOTE | 2021-02-03 23:35 | PC.NURSE ---
refusing blood draw
[2021-02-04] VITALS (11 sets, daily range): BP systolic 102–146; BP diastolic 50–83; PULSE 66–108; RESP 16–20; TEMP 36–36.8; O2SAT 95–98; BMI 27.5
[2021-02-04] MEDS: Gabapentin 300 MG CAPSULE PO ×4 (01:57→21:16)
[2021-02-04] MEDS: QUEtiapine Fumarate 100 MG TABLET PO ×2 (01:57→20:23)
[2021-02-04] MEDS: Montelukast Sodium 10 MG TABLET PO ×2 (01:57→20:23)
[2021-02-04] MEDS: Gabapentin 600 MG TABLET PO ×4 (01:57→21:16)
[2021-02-04] MEDS: Enoxaparin Sodium 40 MG/0.4 ML SYRINGE SUBCUT (03:15)
[2021-02-04] MEDS: 0.9 % Sodium Chloride Flush 3 ML SYRINGE IVFLUSH ×3 (03:15→16:28)
[2021-02-04] MEDS: oxyCODONE HCl Immed Release 5 MG TABLET PO ×3 (03:31→18:27)
[2021-02-04 06:43] LABS: Basophils Absolute Auto 0.1 X10*3/uL (0.0-0.2); Basophils Percent Auto 0.4 % (0-2); Eosinophils Absolute Auto 0.2 X10*3/uL (0.0-0.4); Eosinophils Percent Auto 1.4 % (0-4); Hematocrit 39.6 % (37-47); Hemoglobin 13.3 g/dl (12.0-16.0); Imm Gran Abs Auto 0.24 X10*3/uL (0.00-0.03); Imm Gran Pct Auto 1.4 % (0.0-0.4); Lymphocytes Percent Auto 36.3 % (20-40); MANUAL DIFF FLAG SCAN; Mean Corpuscular HGB Conc 33.6 g/dl (31.0-35.0); Mean Corpuscular Hemoglobin 28.8 pg (27.0-33.0); Mean Corpuscular Volume 85.7 fL (80-98); Mean Platelet Volume 8.3 fL (9.4-12.3); Monocytes Absolute Auto 1.4 X10*3/uL (0.1-1.2); Monocytes Percent Auto 8.1 % (2-11); Neutrophils Absolute Auto 9.2 X10*3/uL (2.0-8.3); Neutrophils Percent Auto 52.4 % (45-73); Platelet Count 493 X10*3/uL (160-400); Red Blood Count 4.62 X10*6/uL (4.20-5.50); SCAN SMEAR FLAG 1; White Blood Count 17.5 X10*3/uL (4.8-10.8)
[2021-02-04 07:06] LABS: Lymphocytes Absolute Auto 6.4 X10*3/uL (1.2-4.9)
[2021-02-04 07:08] LABS: Anion Gap 10 (12-20); Blood Urea Nitrogen 18 mg/dL (9-16); Carbon Dioxide 31 mmol/L (22-29); Chloride 97 mmol/L (96-108); Estimated Glomerular Filt Rate > 60; Glucose Random 95 mg/dL (60-115); Potassium 3.4 mmol/L (3.3-5.1); Sodium 135 mmol/L (135-145)
[2021-02-04 07:23] LABS: Calcium 9.5 mg/dL (8.4-10.2)
[2021-02-04] MEDS: Fluticasone Propionate 100 MCG BLST.W.DEV 1 PUFF INHALE ×2 (08:18→21:30)
[2021-02-04 08:23] LABS: SLIDE REVIEW VERIFIED
[2021-02-04] MEDS: Omeprazole 20 MG CAPSULE.DR PO (09:19)
[2021-02-04] MEDS: Atorvastatin Calcium 40 MG TABLET PO (09:19)
[2021-02-04] MEDS: Cholecalciferol (Vitamin D3) 25 MCG TABLET PO (09:19)
[2021-02-04] MEDS: Loratadine 10 MG TABLET PO (09:20)
[2021-02-04] MEDS: hydroCHLOROthiazide 25 MG TABLET PO (09:20)
[2021-02-04] MEDS: polyethylene glycoL 3350 17 GM POWD.PACK PO (09:20)
[2021-02-04] MEDS: amLODIPine Besylate 5 MG TABLET PO (09:20)
[2021-02-04] MEDS: DULoxetine HCl 30 MG CAPSULE.DR PO (09:20)
[2021-02-04] MEDS: Sennosides 8.6 MG TABLET 17.2 MG PO (09:25)
[2021-02-04] MEDS: TiZANidine HCL 4 MG TABLET PO (09:25)
--- NOTE | 2021-02-04 09:26 | MHC.CM.PN ---
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 Patient lives alone and has no DME. 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 PCP is Dr. Raymundo Mcdonald.
[2021-02-04] MEDS: Azelastine HCl Nasal 137 MCG/Spray 30 ML 1 SPRAY NOSTRIL-B (09:28)
--- NOTE | 2021-02-04 11:15 | PM.GICN ---
History of Present Illness Data of Consult Service Date: 02/04/21 [facility] Primary Care Provider: BACILIO Lackey- HPI Reason for consult: abdo pain 55-year-old female with hx of asthma, depression, bipolar disorder, hyperlipidemia, fibromyalgia, GERD, migraine, hyperthyroidism, thyroid cancer status post thyroidectomy, cholecystectomy, abdo wall mesh placement in past who I am seeing for assessment for abdominal pain. She has been having epigastric pain radiating all the way to the lower abdomen and around her back to the center of her back for 3 d or so. Pain is constant with no relieving or exacerbating factors. Denies headache, no change in vision, no chest pain, no shortness of breath, no nausea or vomiting, no diarrhea constipation, no urinary symptoms and no lower extremity edema, Pain is worse with bending and movement, breathing. She has chronic whole body muscle aches and pain, attributed to fibromyalgia, takes gabapentin 600 mg tid with partial effect, unable to tolerate other agents in past. LABS: WBC count of 16.2 (been high for several months) lactic acid of 2.4 that resolved , AST of 182, ALT of 278 UA negative No acute abnormality seen on CT scan of abdomen or pelvis She had US 01/2021--nml CBD, cyst seen in liver Labs with neg CLAIRE mutation ordered by hematology due to chronic raised WCC, also ROSE mildly raised 1:160 Review of Systems Review of Systems: Constitutional: No Fever, No Chills Cardiovascular: No Chest Pain, No SOB Respiratory: No Cough, No Dyspnea Gastrointestinal: + Nausea, No Vomiting, No Diarrhea, No Constipation, + Abdominal pain, No Hematochezia, No Melena Genitourinary: No Dysuria, No Urinary Frequency, No Hematuria, No Flank Pain Musculoskeletal: No joint pain, No Myalgias Skin: No Skin Lesions, No rash Neuro: No Weakness, No Numbness, No Dizziness, No Headache Yes all other systems are reviewed and are negative [facility] Past Medical History Medical History Acid reflux Anxiety Asthma Asthma Depression Difficulty swallowing Elevated cholesterol Fibromyalgia GERD (gastroesophageal reflux disease) History of bipolar disorder History of depression History of kidney stones History of thyroid cancer HTN (hypertension) Hx of migraines Hyperparathyroidism Leukocytosis Multinodular thyroid Osteoporosis PONV (postoperative nausea and vomiting) Pulmonary nodule Pulmonary nodules Thrombocytosis Thyroid cancer Thyroid cancer Thyroid nodule Vitamin D deficiency Vitamin D deficiency Family History Family History Father Diabetes mellitus Mother HTN (hypertension) High cholesterol Maternal Grandfather Myocardial infarction Maternal Grandmother No problems noted. Paternal Grandfather No problems noted. Paternal Grandmother No problems noted. Surgical History Surgical History H/O colonoscopy H/O esophagogastroduodenoscopy History of bilateral oophorectomy History of thyroid surgery History of total abdominal hysterectomy Hx of appendectomy Hx of cholecystectomy S/P excision of lipoma Social History Social History Household Members: None Housing: Apartment Do you presently have visiting nurse or other home services: Yes Patient Tobacco Use Status: Current everyday Tobacco user Tobacco use type: Cigarette Cigarettes Per Day: 5 Smoked in Last 30 Days: Yes e-Cigarette/Vaping Use: Never Used Patient Interested in Nicotine Replacement: No Patient Given Instructions on How to Stop Smoking: No Second Hand Smoke Exposure: No Use of substances other than those prescribed or required for medical reasons: No Currently Displaying Signs/Symptoms of Drug Intoxication Withdrawal: No Have you been hit, kicked, punched, or otherwise hurt by someone within the past year? If so, by whom?: No Do you feel safe in your current relationship?: Yes Is there a partner from a previous relationship who is making you feel unsafe now?: No Are you made to feel afraid or neglected: No Advance Directives: No Advance Directives Information Provided: Yes Do you have thoughts of harming others: None Do you have a plan to hurt others: No Plan Recently lost weight without trying: Unsure Eating poorly because of decreased appetite: Yes Patient : No : No Poor oral hygiene: No service: No Current occupational status: disabled Meds Allergies Allergy/AdvReac Type Severity Reaction Status Date / Time Sulfa (Sulfonamide Allergy Unknown HIVES Verified 02/03/21 12:28 Antibiotics) [SULFA (SULFONAMIDE ANTIBIOTICS)] aspirin [ASPIRIN] AdvReac Unknown ABD PAIN Verified 02/03/21 14:27 morphine [MORPHINE] AdvReac Unknown ABD PAIN Verified 02/03/21 14:27 Active Medications: Current Medications Generic Name Dose Route Start Last Admin Trade Name Freq PRN Reason Stop Dose Admin Acetaminophen 650 mg 02/03/21 22:59 Acetaminophen 325 Mg Tablet PO Q6H PRN Pain, Mild (Pain Scale 1-3) Albuterol Sulfate 2 puff 02/03/21 22:59 Albuterol Sulfate 90 Mcg 8 Gm Inhaler INHALE Q6H PRN shortness of breath or wheezing Amlodipine Besylate 5 mg 02/04/21 09:00 02/04/21 09:20 Amlodipine Besylate 5 Mg Tablet PO 5 mg DAILY LORNA Administration Protocol Azelastine HCl 1 spray 02/04/21 09:00 02/04/21 09:28 Azelastine Hcl Nasal 137 Mcg/[place] 30 Ml NOSTRIL-B 1 spray BID LORNA Administration Diclofenac Sodium 50 mg 02/03/21 22:59 Diclofenac Sodium Delayed Rel 50 Mg Tablet. PO BID PRN for pain Docusate Sodium 100 mg 02/03/21 22:59 Docusate Sodium 100 Mg Capsule PO DAILY PRN Constipation Duloxetine HCl 30 mg 02/04/21 09:00 02/04/21 09:20 Duloxetine Hcl 30 Mg Capsule. PO 30 mg DAILY LORNA Administration Enoxaparin Sodium 40 mg 02/04/21 01:00 02/04/21 03:15 Enoxaparin Sodium 40 Mg/0.4 Ml Syringe SUBCUT 40 mg Q24H LORNA Administration Estrogens Conjugated 0.0006 gm 02/04/21 09:00 Estrogens, Conjugated Cream 30 Gm Tube VAGINAL DAILY [facility] Fluticasone Propionate 1 puff 02/04/21 08:00 02/04/21 08:18 Fluticasone Propionate 100 Mcg Blst.W.Dev INHALE 1 puff RBID LORNA Administration Fluvoxamine Maleate 100 mg 02/04/21 21:00 Fluvoxamine Maleate 50 Mg Tablet PO BEDTIME LORNA Gabapentin 300 mg 02/03/21 22:59 02/04/21 09:19 Gabapentin 300 Mg Capsule PO 300 mg TID LORNA Administration Gabapentin 600 mg 02/03/21 22:59 02/04/21 09:19 Gabapentin 600 Mg Tablet PO 600 mg TID LORNA Administration Hydrochlorothiazide 25 mg 02/04/21 09:00 02/04/21 09:20 Hydrochlorothiazide 25 Mg Tablet PO 25 mg DAILY LORNA Administration Hydroxyzine HCl 25 mg 02/03/21 22:59 Hydroxyzine Hcl 25 Mg Tablet PO Q8H PRN for itch Hydroxyzine HCl 150 mg 02/03/21 22:59 Hydroxyzine Hcl 25 Mg Tablet PO BEDTIME PRN Anxiety Hydroxyzine HCl 50 mg 02/03/21 22:59 Hydroxyzine Hcl 50 Mg Tablet PO DAILY PRN Anxiety Loratadine 10 mg 02/04/21 09:00 02/04/21 09:20 Loratadine 10 Mg Tablet PO 10 mg DAILY LORNA Administration Montelukast Sodium 10 mg 02/03/21 22:59 02/04/21 01:57 Montelukast Sodium 10 Mg Tablet PO 10 mg BEDTIME LORNA Administration Omeprazole 20 mg 02/04/21 09:00 02/04/21 09:19 Omeprazole 20 Mg Capsule.Dr PO 20 mg DAILY LORNA Administration Ondansetron HCl 4 mg 02/03/21 22:59 Ondansetron Hcl 4 Mg/2 Ml Vial IVPUSH Q8H PRN Nausea and Vomiting Oxycodone HCl 5 mg 02/03/21 21:45 02/04/21 09:25 Oxycodone Hcl Immed Release 5 Mg Tablet PO 5 mg Q6H PRN Administration Pain, Severe (Pain Scale 7-10) Polyethylene Glycol 17 gm 02/04/21 09:00 02/04/21 09:20 Polyethylene Glycol 3350 17 Gm Powd.Pack PO 17 gm DAILY LORNA Administration Potassium Chloride 10 meq 02/03/21 22:59 02/04/21 09:19 Potassium Chloride Er 10 Meq Capsule.Er PO 10 meq BID LORNA Administration Prazosin HCl 2 mg 02/03/21 22:59 02/04/21 03:16 Prazosin Hcl 1 Mg Capsule PO Not Given BEDTIME LORNA Protocol Quetiapine Fumarate 100 mg 02/03/21 22:59 02/04/21 01:57 Quetiapine Fumarate 100 Mg Tablet PO 100 mg BEDTIME LORNA Administration Senna 17.2 mg 02/03/21 22:59 02/04/21 09:25 Sennosides 8.6 Mg Tablet PO 17.2 mg BEDTIME PRN Administration for constipation Sodium Chloride 3 ml 02/04/21 00:00 02/04/21 09:20 0.9 % Sodium Chloride Flush 3 Ml Syringe IVFLUSH 3 ml QSHIFT LORNA Administration Sumatriptan Succinate 25 mg 02/03/21 22:59 Sumatriptan Succinate 25 Mg Tablet PO ONCE PRN migraine headache Tizanidine HCl 4 mg 02/04/21 01:13 02/04/21 09:25 Tizanidine Hcl 4 Mg Tablet PO 4 mg BID PRN Administration for muscle spasm Vitamin D 25 mcg 02/04/21 09:00 02/04/21 09:19 Cholecalciferol (Vitamin D3) 25 Mcg Tablet PO 25 mcg DAILY LORNA Administration Home Medications Medication Instructions Recorded Confirmed Last Taken Type montelukast [Singulair] 10 mg PO BEDTIME 06/04/20 02/03/21 Unknown History polyethylene glycol 3350 [Miralax] 17 g PO DAILY 06/04/20 02/03/21 Unknown History quetiapine 100 mg PO BEDTIME 06/04/20 02/03/21 Unknown History gabapentin 600 mg tablet 600 mg PO TID 12/31/20 02/03/21 Unknown History loratadine 10 mg tablet 10 mg PO DAILY 12/31/20 02/03/21 Unknown History prazosin 2 mg capsule 2 mg PO BEDTIME 12/31/20 02/03/21 Unknown History fluvoxamine 100 mg tablet 100 mg PO BEDTIME 01/04/21 02/03/21 Unknown History hydroxyzine HCl 50 mg tablet 150 mg PO BEDTIME PRN tab 01/04/21 02/03/21 Unknown History hydroxyzine HCl 50 mg PO DAILY PRN 02/03/21 02/03/21 Unknown History Physical Exam Vital Signs: Vital Signs: Last Vital Signs Temp 97.8 F 02/04/21 07:54 Pulse 66 02/04/21 07:54 Resp 20 02/04/21 07:54 BP 146/77 H 02/04/21 07:54 Pulse Ox 95 02/04/21 07:54 Body Mass Index 27.5 Const: Other: During my interview of the patient, she is sitting comfortably in bed, with no clinical evidence of distress due to pain, she is able to give complete history--muscles all tender with gentle squeeze General: cooperative and no acute distress Orientation/consciousness: patient oriented x3 Limitations: no limitations HENMT: Head: Yes normal to inspection Ears: hearing grossly normal bilaterally General nose exam: Normal external nose present Face and sinus: Yes normal facial exam Eyes: General: appearance normal, both eyes and all related structures EOM: EOMs intact bilaterally Neck: Neck: Yes normal visual inspection Resp: Effort & Inspection: normal respiratory effort and able to speak in complete sentences Auscultation: clear to auscultation bilaterally Cardio: Rate: regular rate Rhythm: regular rhythm Heart sounds: S1 normal heart sound present and S2 normal heart sound present GI: Other: Patient grimaces and jobs with the slightest touch of the abdominal wall With no pressure placed patient starts guarding Inspection: Yes normal to inspection Palpation (GI): Soft to palpation, Tenderness to palpation present (GI) (Diffusely), no guarding and not rigid Back/Spine/Pelvis: Other: reduced movement, pain with forward flexion and lateral rotation Thoracic/Lumbar Spine: No mass and lumbar spinal tenderness Skin: General skin exam: no rashes or lesions noted Rashes: no rashes Wounds: no wounds Neuro: General: patient oriented x3 Cognition (Neuro): normal cognition Extrem: General: Yes normal to inspection and Yes no pedal edema Psych: Appearance: grossly normal Results Labs CBC & Chem 7: 02/05/21 05:49 02/04/21 05:39 Labs: Short CBC 02/03/21 02/04/21 Range/Units 13:02 05:39 WBC 16.2 H 17.5 H (4.8-10.8) X10*3/uL Hgb 13.8 13.3 (12.0-16.0) g/dl Hct 41.0 39.6 (37-47) % Plt Count 497 H 493 H (160-400) X10*3/uL BMP 02/03/21 02/04/21 13:02 05:39 Sodium 139 135 Potassium 3.4 3.4 Chloride 97 97 Carbon Dioxide 31 H 31 H BUN 24 H D 18 H Creatinine 0.87 0.73 Calcium 9.8 9.5 Cardiac Enzymes 02/04/21 Range/Units 00:02 Total Creatine Kinase 49 (26-140) U/L Liver Function 02/03/21 Range/Units 13:02 Total Bilirubin 0.6 (0.0-1.0) mg/dL Direct Bilirubin 0.3 (0.0-0.5) mg/dL AST 182 H (5-31) U/L ALT 278 H (0-31) U/L Alkaline Phosphatase 107 D (39-117) U/L Albumin 4.7 (3.5-5.0) g/dL Urine 02/03/21 Range/Units 13:02 Urine Color YELLOW Urine Appearance HAZY Urine pH 7.0 (5.0-8.0) Ur Specific [place] 1.015 (1.005-1.025) Urine Protein NEG (NEG-TRACE) MG/DL Urine Glucose (UA) NEG (NEG) MG/DL Assessment and Plan (1) Abdominal pain: Qualifiers: Abdominal location: generalized Qualified Code(s): R10.84 - Generalized abdominal pain Status: Acute (2) Myalgia: Status: Acute (3) Back pain: Status: Acute 1/ she has whole body pain and chronic myalgia, her abdominal pain is not typical for intra abdominal or visceral pain as it seems to be worse with movement and bending and not worse with food--this could be radicular from her spine or due to a coonective tissue disorder given her raised WCC. Mild ASt/ALT elevation couls be from medication or related to her myalgia 2/ Cyst seen on US, likely benign PLAN: 1/ MRI with liver protocol r/o liver path, retained CBD stone 2/ If 1/ neg then refer rheum and pain clinic, can consider o/p EGD but I think this will be negative 3/ trial of bentyl in meantime and see if helps 4/ if AST/ALT remain elevated then order full liver serology work up Procedures Date of Service Date of Service: 02/04/21
[2021-02-04] MEDS: hydrOXYzine HCL 25 MG TABLET PO (11:46)
--- NOTE | 2021-02-04 14:21 | P.PNIM_ITS ---
Subjective Subjective Date of Service: 02/04/21 <SOLEDAD Doe - Last Filed: 02/04/21 14:40> 02/04/21 <Rc Alvarado MD - Last Filed: 02/04/21 18:31> Interval History: Seen in consult Resting in bed comfortably. Reports ongoing abdominal pain, generalized in nature. Denies any nausea, vomiting, diarrhea <SOLEDAD Doe - Last Filed: 02/04/21 14:40> Review of Systems Review of Systems: Yes all other systems are reviewed and are negative <SOLEDAD Doe - Last Filed: 02/04/21 14:40> Constitutional Constitutional: Denies chills and Denies fever(s) <SOLEDAD Doe Last Filed: 02/04/21 14:40> Cardiovascular Cardiovascular: Denies chest pain <SOLEDAD Doe - Last Filed: 02/04/21 14:40> Respiratory Respiratory: Denies cough <SOLEDAD Doe - Last Filed: 02/04/21 14:40> Gastrointestinal Gastrointestinal: Reports abdominal pain, Denies constipation, Denies nausea and Denies vomiting <SOLEDAD Doe Last Filed: 02/04/21 14:40> Physical Exam Vital Signs: Vital Signs: Last Vital Signs Temp 97.6 F 02/04/21 11:59 Pulse 74 02/04/21 11:59 Resp 20 02/04/21 11:59 BP 127/58 L 02/04/21 11:59 Pulse Ox 95 02/04/21 11:59 Body Mass Index 27.5 <SOLEDAD Doe - Last Filed: 02/04/21 14:40> Const: General: comfortable, no acute distress, alert and awake <SOLEDAD Doe Last Filed: 02/04/21 14:40> Nutritional Appearance: well nourished <SOLEDAD Doe Last Filed: 02/04/21 14:40> Orientation/consciousness: patient oriented x3 <SOLEDAD Doe Last Filed: 02/04/21 14:40> HENMT: Head: Yes normocephalic and Yes atraumatic <SOLEDAD Doe - Last Filed: 02/04/21 14:40> Eyes: Sclerae: sclerae normal <SOLEDAD Doe - Last Filed: 02/04/21 14:40> Chest: Chest palpation & inspection: normal inspection of the chest <SOLEDAD Doe - Last Filed: 02/04/21 14:40> Resp: Effort & Inspection: normal respiratory effort and no respiratory distress <SOLEDAD Doe - Last Filed: 02/04/21 14:40> Cardio: Rate: regular rate <SOLEDAD Doe - Last Filed: 02/04/21 14:40> Rhythm: regular rhythm <SOLEDAD Doe - Last Filed: 02/04/21 14:40> GI: Other: non-distended, no guarding, no rebound <SOLEDAD Doe - Last Filed: 02/04/21 14:40> Palpation (GI): Soft to palpation and nontender <SOLEDAD Doe - Last Filed: 02/04/21 14:40> Neuro: General: patient oriented x3 <SOLEDAD Doe - Last Filed: 02/04/21 14:40> Cranial nerves: Yes CN's II-XII intact bilaterally and Yes Bilaterally intact EOM present <SOLEDAD Doe - Last Filed: 02/04/21 14:40> Extrem: Other: no edema <SOLEDAD Doe - Last Filed: 02/04/21 14:40> Objective Data Current Medications Generic Name Dose Route Start Last Admin Trade Name Freq PRN Reason Stop Dose Admin Acetaminophen 650 mg 02/03/21 22:59 Acetaminophen 325 Mg Tablet PO Q6H PRN Pain, Mild (Pain Scale 1-3) Albuterol Sulfate 2 puff 02/03/21 22:59 Albuterol Sulfate 90 Mcg 8 Gm Inhaler INHALE Q6H PRN shortness of breath or wheezing Amlodipine Besylate 5 mg 02/04/21 09:00 02/04/21 09:20 Amlodipine Besylate 5 Mg Tablet PO 5 mg DAILY LORNA Administration Protocol Azelastine HCl 1 spray 02/04/21 09:00 02/04/21 09:28 Azelastine Hcl Nasal 137 Mcg/[place] 30 Ml NOSTRIL-B 1 spray BID LORNA Administration Diclofenac Sodium 50 mg 02/03/21 22:59 Diclofenac Sodium Delayed Rel 50 Mg Tablet. PO BID PRN for pain Docusate Sodium 100 mg 02/03/21 22:59 Docusate Sodium 100 Mg Capsule PO DAILY PRN Constipation Duloxetine HCl 30 mg 02/04/21 09:00 02/04/21 09:20 Duloxetine Hcl 30 Mg Capsule. PO 30 mg DAILY LORNA Administration Enoxaparin Sodium 40 mg 02/04/21 01:00 02/04/21 03:15 Enoxaparin Sodium 40 Mg/0.4 Ml Syringe SUBCUT 40 mg Q24H LORNA Administration Estrogens Conjugated 0.0006 gm 02/04/21 09:00 Estrogens, Conjugated Cream 30 Gm Tube VAGINAL DAILY LORNA Fluticasone Propionate 1 puff 02/04/21 08:00 02/04/21 08:18 Fluticasone Propionate 100 Mcg Blst.W.Dev INHALE 1 puff RBID LORNA Administration Fluvoxamine Maleate 100 mg 02/04/21 21:00 Fluvoxamine Maleate 50 Mg Tablet PO BEDTIME LORNA Gabapentin 300 mg 02/03/21 22:59 02/04/21 09:19 Gabapentin 300 Mg Capsule PO 300 mg TID LORNA Administration Gabapentin 600 mg 02/03/21 22:59 02/04/21 09:19 Gabapentin 600 Mg Tablet PO 600 mg TID LORNA Administration Hydrochlorothiazide 25 mg 02/04/21 09:00 02/04/21 09:20 Hydrochlorothiazide 25 Mg Tablet PO 25 mg DAILY LORNA Administration Hydroxyzine HCl 25 mg 02/03/21 22:59 02/04/21 11:46 Hydroxyzine Hcl 25 Mg Tablet PO 25 mg Q8H PRN Administration for itch Hydroxyzine HCl 150 mg 02/03/21 22:59 Hydroxyzine Hcl 25 Mg Tablet PO BEDTIME PRN Anxiety Hydroxyzine HCl 50 mg 02/03/21 22:59 Hydroxyzine Hcl 50 Mg Tablet PO DAILY PRN Anxiety Loratadine 10 mg 02/04/21 09:00 02/04/21 09:20 Loratadine 10 Mg Tablet PO 10 mg DAILY LORNA Administration Montelukast Sodium 10 mg 02/03/21 22:59 02/04/21 01:57 Montelukast Sodium 10 Mg Tablet PO 10 mg BEDTIME LORNA Administration Omeprazole 20 mg 02/04/21 09:00 02/04/21 09:19 Omeprazole 20 Mg Capsule.Dr PO 20 mg DAILY LORNA Administration Ondansetron HCl 4 mg 02/03/21 22:59 Ondansetron Hcl 4 Mg/2 Ml Vial IVPUSH Q8H PRN Nausea and Vomiting Oxycodone HCl 5 mg 02/03/21 21:45 02/04/21 09:25 Oxycodone Hcl Immed Release 5 Mg Tablet PO 5 mg Q6H PRN Administration Pain, Severe (Pain Scale 7-10) Polyethylene Glycol 17 gm 02/04/21 09:00 02/04/21 09:20 Polyethylene Glycol 3350 17 Gm Powd.Pack PO 17 gm DAILY LORNA Administration Potassium Chloride 10 meq 02/03/21 22:59 02/04/21 09:19 Potassium Chloride Er 10 Meq Capsule.Er PO 10 meq BID LORNA Administration Prazosin HCl 2 mg 02/03/21 22:59 02/04/21 03:16 Prazosin Hcl 1 Mg Capsule PO Not Given BEDTIME LORNA Protocol Quetiapine Fumarate 100 mg 02/03/21 22:59 02/04/21 01:57 Quetiapine Fumarate 100 Mg Tablet PO 100 mg BEDTIME LORNA Administration Senna 17.2 mg 02/03/21 22:59 02/04/21 09:25 Sennosides 8.6 Mg Tablet PO 17.2 mg BEDTIME PRN Administration for constipation Sodium Chloride 3 ml 02/04/21 00:00 02/04/21 09:20 0.9 % Sodium Chloride Flush 3 Ml Syringe IVFLUSH 3 ml QSHIFT LORNA Administration Sumatriptan Succinate 25 mg 02/03/21 22:59 Sumatriptan Succinate 25 Mg Tablet PO ONCE PRN migraine headache Tizanidine HCl 4 mg 02/04/21 01:13 02/04/21 09:25 Tizanidine Hcl 4 Mg Tablet PO 4 mg BID PRN Administration for muscle spasm Vitamin D 25 mcg 02/04/21 09:00 02/04/21 09:19 Cholecalciferol (Vitamin D3) 25 Mcg Tablet PO 25 mcg DAILY LORNA Administration <SOLEDAD Doe - Last Filed: 02/04/21 14:40> Labs CBC & Chem 7: : 02/04/21 05:39 02/04/21 05:39 <SOLEDAD Doe - Last Filed: 02/04/21 14:40> Assessment and Plan (1) Abdominal pain: Status: Acute <SOLEDAD Doe - Last Filed: 02/04/21 14:40> (2) Elevated liver enzymes: Status: Acute <SOLEDAD Doe - Last Filed: 02/04/21 14:40> (3) Lactic acidosis: Status: Acute <SOLEDAD Doe - Last Filed: 02/04/21 14:40> Assessment and Plan: This is a 55-year-old female with an extensive past medical history as above who presents to the hospital with abdominal pain intractable abdominal pain generalized pain, unclear cause. CT abdomen negative. no vomiting or diarrhea - Seen by GI, rec abdominal MRI leukocytosis seems somewhat chronic. no evidence of sepsis -trend CBC transaminitis liver cyst on CT. hepatitis panel 01/12/21 negative. pt reports daily tylenol use -check tylenol level -trend liver function -hold statin lactic acidosis possibly secondary to dehydration. resolved with IV fluids. no sepsis hypertension -stable -continue amlodipine and HCTZ (in place of home chlorthalidone) hyperlipidemia - hold statin mood disorder including bipolar and depression - continue Cymbalta, Seroquel, luvox fibromyalgia -continue Neurontin DVT prophylaxis: Lovenox attending. Dr. alvarado <SOLEDAD Doe - Last Filed: 02/04/21 14:40> I have seen and evaluated this patient. I have discussed the case and its management with the PA and I agree with the findings and plan as documented in the PA's note, awaiting MRI result <Rc Alvarado MD - Last Filed: 02/04/21 18:31>
[2021-02-04 15:17] LABS: Acetaminophen LAB < 1 mcg/mL (<30)
[2021-02-04] MEDS: Dicyclomine HCl 10 MG CAPSULE PO (16:27)
[2021-02-04] MEDS: Docusate Sodium 100 MG CAPSULE PO (18:27)
[2021-02-04] MEDS: Prazosin HCL 1 MG CAPSULE 2 MG PO (20:22)
[2021-02-04] MEDS: fluvoxaMINE Maleate 50 MG TABLET 100 MG PO (20:23)
[2021-02-04] MEDS: vancomycin HCL 1,250 MG in 0.9 % Sodium Chloride 250 ML 166.67 MG IV (22:45)
[2021-02-05] MEDS: 0.9 % Sodium Chloride Flush 3 ML SYRINGE IVFLUSH ×2 (00:01→07:16)
[2021-02-05] MEDS: Sennosides 8.6 MG TABLET 17.2 MG PO (00:11)
[2021-02-05] MEDS: Enoxaparin Sodium 40 MG/0.4 ML SYRINGE SUBCUT (00:11)
[2021-02-05] MEDS: oxyCODONE HCl Immed Release 5 MG TABLET PO ×3 (00:36→12:51)
[2021-02-05 02:02] VITALS: RESP 18
[2021-02-05 03:58] VITALS: BP 97/50; PULSE 71; RESP 18; TEMP 36.4; O2SAT 93
--- NOTE | 2021-02-05 05:56 | PM.EVENT ---
Event Note Date of Service: 02/05/21 Event Note: Patient cultures positive for Gram-positive cocci - re-cultured - started on IV antibiotics
[2021-02-05 06:58] LABS: Hematocrit 34.9 % (37-47); Hemoglobin 11.8 g/dl (12.0-16.0); Mean Corpuscular HGB Conc 33.8 g/dl (31.0-35.0); Mean Corpuscular Hemoglobin 29.2 pg (27.0-33.0); Mean Corpuscular Volume 86.4 fL (80-98); Mean Platelet Volume 8.7 fL (9.4-12.3); Platelet Count 431 X10*3/uL (160-400); Red Blood Count 4.04 X10*6/uL (4.20-5.50); Red Cell Distribution Width 13.6 % (11.0-16.0); White Blood Count 14.4 X10*3/uL (4.8-10.8)
[2021-02-05] MEDS: Azelastine HCl Nasal 137 MCG/Spray 30 ML 1 SPRAY NOSTRIL-B (07:16)
[2021-02-05] MEDS: polyethylene glycoL 3350 17 GM POWD.PACK PO (07:17)
[2021-02-05] MEDS: hydroCHLOROthiazide 25 MG TABLET PO (07:17)
[2021-02-05] MEDS: Dicyclomine HCl 10 MG CAPSULE PO ×2 (07:17→12:51)
[2021-02-05] MEDS: Gabapentin 300 MG CAPSULE PO (07:17)
[2021-02-05] MEDS: Gabapentin 600 MG TABLET PO (07:18)
[2021-02-05] MEDS: Cholecalciferol (Vitamin D3) 25 MCG TABLET PO (07:18)
[2021-02-05] MEDS: Loratadine 10 MG TABLET PO (07:18)
[2021-02-05] MEDS: DULoxetine HCl 30 MG CAPSULE.DR PO (07:18)
[2021-02-05] MEDS: Omeprazole 20 MG CAPSULE.DR PO (07:18)
[2021-02-05] MEDS: amLODIPine Besylate 5 MG TABLET PO (07:18)
[2021-02-05 07:52] LABS: Alanine Aminotransferase 238 U/L (0-31); Albumin Level 3.7 g/dL (3.5-5.0); Alkaline Phosphatase 92 U/L (39-117); Aspartate Amino Transferase 57 U/L (5-31); Bilirubin Direct 0.2 mg/dL (0.0-0.5); Bilirubin Total 0.5 mg/dL (0.0-1.0); Total Protein 5.8 g/dL (6.5-8.0)
[2021-02-05 07:56] VITALS: BP 141/83; PULSE 70; RESP 20; TEMP 36.8; O2SAT 93
[2021-02-05] MEDS: Fluticasone Propionate 100 MCG BLST.W.DEV 1 PUFF INHALE (08:39)
[2021-02-05 08:42] VITALS: PULSE 78; O2SAT 99
[2021-02-05] MEDS: vancomycin HCL 1,000 MG in 0.9 % Sodium Chloride 250 ML 270 MG IV (09:50)
[2021-02-05] MEDS: Lactulose 20 GM/30 ML SOLUTION 10 GM PO (09:51)
--- NOTE | 2021-02-05 10:26 | PM.DS ---
DS: Providers Provider Date of Service: 02/05/21 <SOLEDAD Doe - Last Filed: 02/05/21 11:19> Date of admission: 02/03/21 22:59 <SOLEDAD Doe - Last Filed: 02/05/21 11:19> Primary care physician: Raymundo Mcdonald [facility]- <SOLEDAD Doe - Last Filed: 02/05/21 11:19> Consults: 02/04/21 08:11 Consult to Gastroenterology Routine Consulting Provider: Deuce Rodriguez Reason for consultation: abdominal pain, transaminitis Has provider been notified: No <SOLEDAD Doe - Last Filed: 02/05/21 11:19> DS: Diagnosis Discharge Diagnosis (1) Abdominal pain: Status: Acute <SOLEDAD Doe - Last Filed: 02/05/21 11:19> DS: Medications Discharge Medications Home Medications: Home Medications Medication Instructions Recorded Confirmed montelukast [Singulair] 10 mg PO BEDTIME 06/04/20 02/03/21 polyethylene glycol 3350 [Miralax] 17 g PO DAILY 06/04/20 02/03/21 quetiapine 100 mg PO BEDTIME 06/04/20 02/03/21 gabapentin 600 mg tablet 600 mg PO TID 12/31/20 02/03/21 loratadine 10 mg tablet 10 mg PO DAILY 12/31/20 02/03/21 prazosin 2 mg capsule 2 mg PO BEDTIME 12/31/20 02/03/21 fluvoxamine 100 mg tablet 100 mg PO BEDTIME 01/04/21 02/03/21 hydroxyzine HCl 50 mg tablet 150 mg PO BEDTIME PRN tab 01/04/21 02/03/21 hydroxyzine HCl 50 mg PO DAILY PRN 02/03/21 02/03/21 Previous Rx's Medication Instructions Recorded atorvastatin 40 mg tablet 40 mg PO DAILY 90 Days #90 tab 06/26/20 omeprazole 20 mg capsule,delayed 20 mg PO DAILY #30 cap 07/08/20 release albuterol sulfate 90 mcg/actuation 2 inh INHALATION Q6H PRN 30 Days 07/10/20 aerosol inhaler #18 g azelastine 137 mcg (0.1 %) nasal 1 spray INTRANASAL BID 30 Days #30 07/10/20 spray aerosol ml fluticasone propionate 110 1 puff INHALATION BID 30 Days #12 g 07/10/20 mcg/actuation HFA aerosol inhaler cholecalciferol (vitamin D3) 25 25 mcg PO DAILY #30 tab 09/14/20 mcg (1,000 unit) tablet hydroxyzine HCl 25 mg tablet 25 mg PO Q8H PRN #90 tab 11/17/20 gabapentin 300 mg capsule 300 mg PO TID #90 cap 12/10/20 sennosides 8.6 mg tablet 17.2 mg PO BEDTIME PRN #60 tab 12/10/20 amlodipine 5 mg tablet 5 mg PO DAILY #30 tab 01/04/21 diclofenac sodium 50 mg 50 mg PO BID PRN #60 tab 01/04/21 tablet,delayed release sumatriptan succinate 25 mg tablet 25 mg PO ONCE PRN 30 Days #12 tab 01/04/21 diclofenac sodium 1 % topical gel 2 g TOPICAL BID PRN #100 g 01/05/21 chlorthalidone 25 mg tablet 25 mg PO DAILY #30 tab 01/25/21 tizanidine 2 mg tablet 4 mg PO BID PRN #60 tab 01/25/21 conjugated estrogens 0.625 mg/gram 0.625 mg VAGINAL DAILY #30 g 01/26/21 vaginal cream hydrocortisone valerate 0.2 % 1 appl TOPICAL BID PRN 30 Days #45 01/31/21 topical cream g potassium chloride 10 mEq 10 meq PO BID 15 Days #30 cap 02/02/21 capsule,extended release duloxetine 30 mg capsule,delayed 30 mg PO DAILY #30 cap 02/03/21 release <SOLEDAD Doe - Last Filed: 02/05/21 11:19> DS: Summary Hospital Course Hospital Course: From H&P on day of discharge This is a 55-year-old female with an extensive past medical history includes asthma, depression, bipolar disorder, hyperlipidemia, fibromyalgia, GERD, migraine, hyperthyroidism, thyroid cancer status post thyroidectomy, who presents to the hospital with complaints of abdominal pain. Patient reports that the abdominal pain is at the epigastric area or radiating all the way to the lower abdomen and around her back to the center of her back, the pain is 20/10, is been going on for 3 days, the pain is squeezing/strangulating, feels that she can take a deep breath every time she feels these pain episodes. Reports that the pain is constant with no relieving or exacerbating factors. She denies any headache, no change in vision, no chest pain, no shortness of breath, no nausea or vomiting, no diarrhea constipation, no urinary symptoms and no lower extremity edema Patient gives me a very extensive history about a abdominal procedure status post mesh placement at the abdominal wall with complications although this was in the remote past. Patient hemodynamically stable with no significant abnormal vitals For WBC count of 16.2 lactic acid of 2.4 that resolved , AST of 182, ALT of 278 UA negative No acute abnormality seen on CT scan of abdomen or pelvis Patient received multiple rounds of IV Dilaudid in the ED with intractable pain and therefore will be admitted for observation Abdominal pain. Patient underwent CAT scan of the abdomen and pelvis which showed no acute abnormality. She had MRI of the abdomen which showed a small left renal cyst but no other significant abnormalities. Patient's pain was generalized in nature. No obvious cause of her abdominal pain was found. Moderate to large volume of stool was seen in her colon and discomfort may be related to underlying constipation. She should continue with her home bowel regimen scheduled rather than on an as-needed basis. She can follow-up in the GI office as outpatient. Liver transaminases were somewhat elevated initially with AST of 182 and ALT of 278. Her statin was placed on hold. Recent outpatient hepatitis panel was negative. Tylenol level was negative. Abdominal imaging all negative as above. Recommend holding statin and to follow up with PCP in repeat labs can be obtained. Leukocytosis. Patient had leukocytosis, seems to be somewhat chronic in nature. Patient had no fever. No source of infection was identified. Urinalysis, abdominal imaging were all unremarkable. White count was trending down on the day of discharge. Blood cultures were checked, 1/2 were positive for coagulase negative staph, likely contamination. Repeat blood cultures were obtained and are pending at this time. <SOLEDAD Doe - Last Filed: 02/05/21 11:19> Time Spent with Patient Time attestation: Total time spent providing and/or coordinating discharge services: <SOLEDAD Doe - Last Filed: 02/05/21 11:19> Discharge coordination time: Greater than 30 minutes <SOLEDAD Doe - Last Filed: 02/05/21 11:19> Quality: Stroke Does the patient have a stroke diagnosis?: No <SOLEDAD Doe - Last Filed: 02/05/21 11:19> Physical Exam Vital Signs: Vital Signs: Last Vital Signs Temp 98.2 F 02/05/21 07:56 Pulse 78 02/05/21 08:42 Resp 20 02/05/21 07:56 BP 141/83 H 02/05/21 07:56 Pulse Ox 93 02/05/21 07:56 Body Mass Index 27.5 <SOLEDAD Doe - Last Filed: 02/05/21 11:19> DS: Data Data Completed and Pending Labs on day of discharge: Laboratory Results - last 24 hr 02/04/21 02/05/21 02/05/21 14:39 05:49 05:49 WBC 14.4 H RBC 4.04 L Hgb 11.8 L Hct 34.9 L MCV 86.4 MCH 29.2 MCHC 33.8 RDW 13.6 Plt Count 431 H MPV 8.7 L Absolute Nucleated RBC 0.000 Nucleated RBC % (auto) 0.0 Total Bilirubin 0.5 Direct Bilirubin 0.2 AST 57 H ALT 238 H Alkaline Phosphatase 92 Total Protein 5.8 L D Albumin 3.7 D Acetaminophen < 1 Preliminary micro results at discharge 02/03/21 14:35 Blood Culture - Preliminary Blood - Venous 02/03/21 14:42 Blood Culture - Preliminary Blood - Venous No growth after 24 hours. <SOLEDAD Doe - Last Filed: 02/05/21 11:19> Discharge Plan Discharge Patient Disposition: Home, Self-Care <SOLEDAD Doe - Last Filed: 02/05/21 11:19> Discharge Diagnosis: Abdominal Pain Transaminitis <SOLEDAD Doe - Last Filed: 02/05/21 11:19> Abdominal Pain Transaminitis <Rc Alvarado MD - Last Filed: 02/05/21 17:49> Referrals: Raymundo Mcdonald, [employer] [Primary Care Provider] - 1 Week <SOLEDAD Doe - Last Filed: 02/05/21 11:19> Discharge Medications: Continued cholecalciferol (vitamin D3) [Vitamin D3] 25 mcg (1,000 unit) tablet 25 mcg PO DAILY Qty: 30 RF: 11 hydroxyzine HCl 25 mg tablet 25 mg PO Q8H PRN (Reason: for itch) Qty: 90 RF: 2 gabapentin 300 mg capsule 300 mg PO TID Qty: 90 RF: 2 sennosides [Senna Laxative] 8.6 mg tablet 17.2 mg PO BEDTIME PRN (Reason: for constipation) Qty: 60 RF: 2 sumatriptan succinate 25 mg tablet 25 mg PO ONCE PRN (Reason: migraine headache) 30 Days Qty: 12 RF: 3 amlodipine 5 mg tablet 5 mg PO DAILY Qty: 30 RF: 4 diclofenac sodium 50 mg tablet,delayed release (DR/EC) 50 mg PO BID PRN (Reason: for pain) Qty: 60 RF: 1 diclofenac sodium 1 % gel 2 g topical BID PRN (Reason: pain) Qty: 100 RF: 3 tizanidine 2 mg tablet 4 mg PO BID PRN (Reason: for muscle spasm) Qty: 60 RF: 0 chlorthalidone 25 mg tablet 25 mg PO DAILY Qty: 30 RF: 2 hydrocortisone valerate 0.2 % cream 1 appl topical BID PRN (Reason: skin irritation) 30 Days Qty: 45 RF: 2 potassium chloride 10 mEq capsule, extended release 10 meq PO BID 15 Days Qty: 30 RF: 0 duloxetine 30 mg capsule,delayed release(DR/EC) 30 mg PO DAILY Qty: 30 RF: 2 hydroxyzine HCl 50 mg Tablet 50 mg PO DAILY PRN (Reason: Anxiety) RF: 0 quetiapine 100 mg Tablet 100 mg PO BEDTIME RF: 0 polyethylene glycol 3350 [Miralax] 17 gram Powder In Packet 17 g PO DAILY RF: 0 montelukast [Singulair] 10 mg Tablet 10 mg PO BEDTIME RF: 0 prazosin 2 mg capsule 2 mg PO BEDTIME RF: 0 loratadine 10 mg tablet 10 mg PO DAILY RF: 0 gabapentin 600 mg tablet 600 mg PO TID RF: 0 hydroxyzine HCl 50 mg tablet 150 mg PO BEDTIME PRN (Reason: Anxiety) RF: 0 Premarin 0.625 mg/gram cream 0.625 mg vaginal DAILY Qty: 30 RF: 11 azelastine 137 mcg (0.1 %) aerosol,spray 1 spray INTRANASAL BID 30 Days Qty: 30 RF: 11 fluticasone propionate 110 mcg/actuation HFA aerosol inhaler 1 puff INHALATION BID 30 Days Qty: 12 RF: 11 albuterol sulfate 90 mcg/actuation HFA aerosol inhaler 2 inh inhalation Q6H PRN (Reason: shortness of breath or wheezing) 30 Days Qty: 18 RF: 12 omeprazole 20 mg capsule,delayed release(DR/EC) 20 mg PO DAILY Qty: 30 RF: 11 fluvoxamine 100 mg tablet 100 mg PO BEDTIME RF: 0 Held atorvastatin 40 mg tablet 40 mg PO DAILY 90 Days Qty: 90 RF: 1 Hold Instructions: Resume on 02/12/21. Follow up with PCP <SOLEDAD Doe - Last Filed: 02/05/21 11:19> Discharge Orders: Discharge Order (Routine); Ordered 02/05/21 Ordered By: Gay Cervantes <SOLEDAD Doe - Last Filed: 02/05/21 11:19> Activity on Discharge: As tolerated <SOLEDAD Doe - Last Filed: 02/05/21 11:19> As tolerated <Rc Alvarado MD - Last Filed: 02/05/21 17:49> Stand Alone Forms: Patient Portal Discharge page <SOLEDAD Doe - Last Filed: 02/05/21 11:19> Care Plan Goals: see below <SOLEDAD Doe - Last Filed: 02/05/21 11:19> Health Concerns: Elevated liver enzymes. Abdominal pain - abdominal MRI is unremarkable <SOLEDAD Doe - Last Filed: 02/05/21 11:19> Plan of Treatment: Hold statin and follow up with PCP for repeat lab check <SOLEDAD Doe - Last Filed: 02/05/21 11:19> Assessment: see dicharge I saw patient and discussed discharge plan with PA and i agree with finding and management, plan as written by PA <SOLEDAD Doe - Last Filed: 02/05/21 11:19> Discharge Date/Time: 02/05/21 13:20 <SOLEDAD Doe - Last Filed: 02/05/21 11:19>
[2021-02-05 11:08] VITALS: BP 136/56; PULSE 73; RESP 20; TEMP 37.1; O2SAT 98
--- NOTE | 2021-02-05 12:04 | MHC.CM.PN ---
Pt cleared to DC today, home with no services. Family to transport
== END 2021-02-05 13:20 | disposition home or self-care (01) ==
LOC: HO.ED 19:37 → HO.IMC 02-04 07:22 → HO.EDOVER 02-04 15:27
PROVIDERS: Physician Assistant; Physician Assistant Medical; Admitting Provider Internal Medicine; Emergency Provider Internal Medicine; PCP Nurse Practitioner Family; Visit Provider Internal Medicine
DX: R10.84 Generalized abdominal pain (principal); E87.2 Acidosis; I10 Essential (primary) hypertension; E78.5 Hyperlipidemia, unspecified; F31.9 Bipolar disorder, unspecified; R74.8 Abnormal levels of other serum enzymes; M79.7 Fibromyalgia; M54.9 Dorsalgia, unspecified; J45.909 Unspecified asthma, uncomplicated; K21.9 Gastro-esophageal reflux disease without esophagitis; G43.909 Migraine, unspecified, not intractable, without status migrainosus; E05.90 Thyrotoxicosis, unspecified without thyrotoxic crisis or storm; C73 Malignant neoplasm of thyroid gland; E89.0 Postprocedural hypothyroidism; E55.9 Vitamin D deficiency, unspecified; D72.829 Elevated white blood cell count, unspecified; R11.0 Nausea; R74.01 Elevation of levels of liver transaminase levels; F17.210 Nicotine dependence, cigarettes, uncomplicated; Z88.6 Allergy status to analgesic agent; Z88.5 Allergy status to narcotic agent; Z88.2 Allergy status to sulfonamides; Z20.822 Contact with and (suspected) exposure to COVID-19; Z90.710 Acquired absence of both cervix and uterus; Z90.722 Acquired absence of ovaries, bilateral; Z79.899 Other long term (current) drug therapy
CPT/HCPCS: 36415; 74177; 74183; 80048; 80076; 80143; 81003; 82550; 83605; 83690; 83735; 85025; 85027; 85610; 85730; 87040; 87205; 87635; 94640; 96361; 96365; 96366; 96372; 96375; 96376; 99212; 99219; 99285; A9585; J1170; J1650; J1885; J2405; J2543; J3370; Q9967

== ENCOUNTER → 2021-03-02 08:33 | Outpatient (BNVA) | payer OTHER, SELFPAY | PROVIDERS: PCP Nurse Practitioner Family; Referring Provider Nurse Practitioner Family; Visit Provider Physician Assistant ==

== ENCOUNTER 2021-03-04 14:12 | Outpatient (REF) | payer OTHER, SELFPAY ==
[2021-03-04 14:35] LABS: MANUAL DIFF FLAG NO
[2021-03-04 14:44] LABS: Basophils Absolute Auto 0.1 X10*3/uL (0.0-0.2); Basophils Percent Auto 1.1 % (0-2); Eosinophils Absolute Auto 0.3 X10*3/uL (0.0-0.4); Eosinophils Percent Auto 2.8 % (0-4); Hematocrit 41.4 % (37-47); Hemoglobin 13.8 g/dl (12.0-16.0); Imm Gran Abs Auto 0.06 X10*3/uL (0.00-0.03); Imm Gran Pct Auto 0.5 % (0.0-0.4); Lymphocytes Absolute Auto 3.5 X10*3/uL (1.2-4.9); Lymphocytes Percent Auto 31.8 % (20-40); Mean Corpuscular HGB Conc 33.3 g/dl (31.0-35.0); Mean Corpuscular Hemoglobin 28.9 pg (27.0-33.0); Mean Corpuscular Volume 86.6 fL (80-98); Mean Platelet Volume 8.3 fL (9.4-12.3); Monocytes Absolute Auto 0.8 X10*3/uL (0.1-1.2); Monocytes Percent Auto 7.4 % (2-11); Neutrophils Absolute Auto 6.2 X10*3/uL (2.0-8.3); Neutrophils Percent Auto 56.4 % (45-73); Platelet Count 443 X10*3/uL (160-400); Red Blood Count 4.78 X10*6/uL (4.20-5.50)
[2021-03-04 14:57] LABS: Alanine Aminotransferase 57 U/L (0-31); Albumin Level 4.5 g/dL (3.5-5.0); Alkaline Phosphatase 71 U/L (39-117); Anion Gap 15 (12-20); Aspartate Amino Transferase 38 U/L (5-31); Bilirubin Total 0.3 mg/dL (0.0-1.0); Blood Urea Nitrogen 10 mg/dL (9-16); Calcium 9.8 mg/dL (8.4-10.2); Carbon Dioxide 25 mmol/L (22-29); Chloride 102 mmol/L (96-108); Cholesterol 237 mg/dL; Estimated Glomerular Filt Rate > 60; Glucose Random 129 mg/dL (60-115); HDL Cholesterol 51 mg/dL; LDL Cholesterol Calculated 118 mg/dl; Potassium 3.2 mmol/L (3.3-5.1); Sodium 139 mmol/L (135-145); Total Protein 7.4 g/dL (6.5-8.0); Triglycerides 341 mg/dL
[2021-03-04 15:34] LABS: Glucose Urine UA NEG (NEG); Leukocyte Esterase Urine NEG (NEG); Nitrite Urine NEG (NEG); Urine Blood NEG (NEG); Urine Ketones NEG (NEG); Urine Protein NEG (NEG-TRACE)
[2021-03-04 15:37] LABS: Appearance Urine CLEAR; Color Urine YELLOW
[2021-03-04 15:43] LABS: Bacteria Urine 1+ /LPF; RBC Urine 0-2 /HPF (0); Squamous Epithelial Cell Urine 3+ /LPF
== END 2021-03-04 14:13 | disposition home or self-care (01) ==
LOC: HO.CT 14:12
PROVIDERS: PCP Nurse Practitioner Family; Visit Provider Obstetrics & Gynecology
DX: R10.2 Pelvic and perineal pain (principal); E78.5 Hyperlipidemia, unspecified; D72.829 Elevated white blood cell count, unspecified
CPT/HCPCS: 36415; 80053; 80061; 81001; 85025; 87086

== ENCOUNTER 2021-03-22 12:43 | Outpatient (REF) | payer OTHER, SELFPAY ==
--- NOTE | ~2021-03-22 | CT_ITS ---
EXAMINATION: CT CHEST WITHOUT CONTRAST CLINICAL INFORMATION: Pulmonary nodules COMPARISON: Previous chest CT, most recent January 2020 and October 2018 TECHNIQUE: Multidetector volumetric CT imaging of the chest was done. Axial MIP volume rendering provided. Sagittal and coronal reformatted images were obtained. This CT examination was performed using dose optimization techniques as appropriate, variously including the following: *Automated exposure control *Adjustment of mA and/or kV according to patient size (this includes techniques or standardized protocols for targeted exams where dose is matched to indication/reason for exam; i.e. extremities or head) *Use of iterative reconstruction technique DLP: 143 mGy-cm FINDINGS: MIDDLEWARE ADMINISTRATOR: LUNGS: The 6 mm partially calcified right middle lobe nodule axial image 296 series 5 is stable. The lungs are otherwise clear. MEDIASTINUM: The left lobe of the thyroid gland has been removed. The mediastinum is otherwise normal. PLEURA: There is no pleural effusion. No pleural mass or thickening. AXILLA: No lymphadenopathy. UPPER ABDOMEN: The gallbladder has been removed. OSSEOUS STRUCTURES: Unremarkable. CT/CT chest wo con IMPRESSION: Stable partially calcified 6 mm right middle lobe nodule.
== END 2021-03-22 12:44 | disposition home or self-care (01) ==
LOC: HO.CT 12:43
PROVIDERS: Visit Provider Hospitalist
DX: R91.8 Other nonspecific abnormal finding of lung field (principal); C73 Malignant neoplasm of thyroid gland
CPT/HCPCS: 71250

== ENCOUNTER 2021-04-23 12:17 | Outpatient (REF) | payer OTHER, SELFPAY ==
[2021-04-23 13:48] LABS: Alanine Aminotransferase 51 U/L (0-31); Albumin Level 4.8 g/dL (3.5-5.0); Alkaline Phosphatase 62 U/L (39-117); Anion Gap 15 (12-20); Aspartate Amino Transferase 32 U/L (5-31); Bilirubin Total 0.5 mg/dL (0.0-1.0); Blood Urea Nitrogen 12 mg/dL (9-16); Calcium 10.1 mg/dL (8.4-10.2); Carbon Dioxide 28 mmol/L (22-29); Chloride 98 mmol/L (96-108); Cholesterol 262 mg/dL; Estimated Glomerular Filt Rate > 60; Glucose Random 93 mg/dL (60-115); HDL Cholesterol 49 mg/dL; LDL Cholesterol Calculated 139 mg/dl; Phosphorus 4.3 mg/dL (2.7-4.5); Potassium 3.5 mmol/L (3.3-5.1); Sodium 137 mmol/L (135-145); Total Protein 7.6 g/dL (6.5-8.0); Triglycerides 370 mg/dL
[2021-04-23 14:07] LABS: Free T4 (Free Thyroxine) 1.23 ng/dL (0.71-1.85); Vitamin D 25-OH Total 29.2 ng/mL (>30)
[2021-04-26 13:41] LABS: PTHI 46 pg/mL (14-64)
== END 2021-04-23 12:18 | disposition home or self-care (01) ==
LOC: HO.LAB 12:17
PROVIDERS: Internal Medicine; PCP Nurse Practitioner Family; Visit Provider Nurse Practitioner Family
DX: Z20.822 Contact with and (suspected) exposure to COVID-19 (principal); E78.5 Hyperlipidemia, unspecified; M81.0 Age-related osteoporosis without current pathological fracture; E04.2 Nontoxic multinodular goiter; E55.9 Vitamin D deficiency, unspecified; Z85.850 Personal history of malignant neoplasm of thyroid
CPT/HCPCS: 36415; 80053; 80061; 82306; 83970; 84100; 84439; 84443; C9803; U0003; U0005

== ENCOUNTER 2021-04-29 17:58 | Outpatient (REF) | payer OTHER, SELFPAY | END 2021-04-29 17:59 | disposition home or self-care (01) | LOC: HO.LNP 17:58 | PROVIDERS: Visit Provider Hospitalist | DX: J01.90 Acute sinusitis, unspecified (principal); Z20.822 Contact with and (suspected) exposure to COVID-19 | CPT/HCPCS: U0003; U0005 ==

== ENCOUNTER 2021-05-27 10:13 | Outpatient (REF) | payer OTHER, SELFPAY ==
--- NOTE | ~2021-05-27 | US_ITS ---
EXAMINATION: US THYROID CLINICAL INFORMATION: Personal history of malignant neoplasm of thyroid. COMPARISON: Ultrasound soft tissue head/neck thyroid dated 03/20/2020 and 02/22/2018. TECHNIQUE: Linear transducer grayscale and color Doppler examination with attention to the region of the thyroid. FINDINGS: SIZE: Measurements of the thyroid lobes and nodules are given in sagittal, anteroposterior and transverse dimensions respectively. Right Thyroid Lobe: 5.5 x 2.2 x 2.4 cm, volume 15.2 mL. Previously 5.5 x 2.2 x 2.4 cm, volume 15.2 mL. Parenchyma: The gland echotexture is homogeneous. Thyroid vascularity is increased. Left Thyroid Lobe: Surgically absent. Isthmus: 0.3 cm in maximum AP dimension. Previously 0.2 cm. Estimated total number of nodules greater than or equal to 1 cm: 0. [facility] Chief Executive Officer nodules are described as follows: 1. Location: Right mid lateral. Size: 0.9 x 0.5 x 0.7 cm, volume 0.16 mL. Previously: 1.0 x 0.7 x 0.6 cm, volume 0.22 mL. Nodule characteristics: Composition: Solid (2). Echogenicity: Hypoechoic (2). Shape: Not taller than wide (0). Margins: Smooth (0). Echogenic Foci: None (0). ACR TI-RADS total points: 4 ACR TI-RADS category: 4 Significant change in size (>/= 20% in 2 dimensions and minimal increase of 2 mm or 50% or greater increase in volume): No Change in features: No Change in ACR TI-RADS risk category: No 2. Location: Right inferior. Size: 0.4 x 0.4 x 0.5 cm, volume 0.04 mL. Previously: New since the prior study. Nodule characteristics: Composition: Cystic(0). ACR TI-RADS total points: 0 ACR TI-RADS category: 1 3. Location: Right inferior. Size: 0.5 x 0.3 x 0.3 cm, volume 0.02 mL. Previously: 0.3 x 0.3 x 0.4 cm, volume 0.02 mL. Nodule characteristics: Composition: Cystic(0). ACR TI-RADS total points: 0 ACR TI-RADS category: 1 Significant change in size (>/= 20% in 2 dimensions and minimal increase of 2 mm or 50% or greater increase in volume): Change in features: Change in ACR TI-RADS risk category: NODES: No lymphadenopathy is seen in the tissue surrounding the thyroid gland. US/US thyroid IMPRESSION: Slightly enlarged hypervascular right lobe. Stable solid right nodule. 2 small cystic right nodules. ACR TI-RADS RECOMMENDATION REFERENCE: Ultrasound-guided fine-needle aspiration, followup ultrasound, no further follow up. * TR1 (0 point) and TR 2 (2 points): No FNA or follow up * TR3 (3 points): FNA if more than or equal to 2.5 cm in maximum dimension, followup ultrasound in 1, 3 and 5 years if 1.5 to 2.4 cm in maximum dimension. * TR4 (4-6 points): FNA if more than or equal to 1.5 cm in maximum dimension, followup ultrasound in 1, 2, 3 and 5 years if 1 to 1.4 cm in maximum dimension. * TR5 (more than or equal to 7 points): FNA if more than or equal to 1 cm in maximum dimension, followup ultrasound every year for 5 years if 0.5 to 0.9 cm in maximum dimension. * TR3, TR4 or TR5 nodules that are below the size threshold for follow up receive no follow up.
== END 2021-05-27 10:14 | disposition home or self-care (01) ==
LOC: HO.HMGCX 10:13
PROVIDERS: PCP Nurse Practitioner Family; Visit Provider Internal Medicine
DX: E04.2 Nontoxic multinodular goiter (principal); Z85.850 Personal history of malignant neoplasm of thyroid
CPT/HCPCS: 76536

== ENCOUNTER 2021-05-27 14:08 | Outpatient (REF) | payer OTHER, SELFPAY | END 2021-05-27 14:09 | disposition home or self-care (01) | LOC: HO.MAMMO 14:08 | PROVIDERS: PCP Nurse Practitioner Family; Visit Provider Internal Medicine | DX: Z13.89 Encounter for screening for other disorder (principal) ==

== ENCOUNTER → 2021-06-16 11:06 | Outpatient (BNVA) | payer OTHER, SELFPAY | PROVIDERS: PCP Nurse Practitioner Family; Visit Provider Internal Medicine ==

== ENCOUNTER 2021-08-19 13:28 | Outpatient (REF) | payer OTHER, SELFPAY ==
--- NOTE | ~2021-08-19 | MM_ITS ---
EXAMINATION: BONE DENSITOMETRY CLINICAL INDICATION: Hyperparathyroidism, unspecified. COMPARISON: Baseline BD dated 05/12/2020. TECHNIQUE: Using a [employer] DXA System (software version: 13.1) manufactured by [employer], dual-energy x-ray absorptiometry was performed of the lumbar spine, left hip, and left forearm radius 33%. The images are of good technical quality. Summary results are attached. FINDINGS: AP SPINE L1-L4: Current: BMD 0.801 g/cm2, Z-score -2.6, T-score -3.2, osteoporosis, 6.5% decrease from baseline (<5% change is not significant). Baseline: BMD 0.857 g/cm2. LEFT FEMUR, NECK: Current: BMD 0.821 g/cm2, Z-score -0.7, T-score -1.6, osteopenia. Baseline: BMD 0.845 g/cm2. LEFT FEMUR, TOTAL: Current: BMD 0.911 g/cm2, Z-score -0.3, T-score -0.8, normal, 0.0% no change from baseline (<5% change is not significant). Baseline: BMD 0.911 g/cm2. LEFT FOREARM RADIUS 33%: BMD 0.721 g/cm2, Z-score -1.4, T-score -1.8, osteopenia, 0.8% decrease from baseline (<5% change is not significant). Baseline: BMD 0.727 g/cm2. IDENTIFIED RISK FACTORS: Osteoporosis, hyperparathyroidism, tobacco use (current smoker), height loss, glucocorticoids (chronic), menopause, hysterectomy, bilateral oophorectomy, family history (parental hip fracture). HISTORY OF FRACTURE: None listed. MEDICATIONS: Calcium supplements or multivitamin, vitamin D. MM/XR DEXA appendicular skeleton IMPRESSION: 1. DIAGNOSIS: Osteoporosis based on the lowest T-score value of -3.2 in the lumbar spine applying World Health Organization criteria. 2. 10-YEAR FRACTURE RISK PREDICTION, FRAX: According to the guidelines, FRAX calculation should only be performed on patients in the osteopenia bone density category. 3. Treatment Recommendations: NOF guidelines recommend consideration for treatment in postmenopausal women and men age 50 and older presenting with the following: -A hip or vertebral (clinical or morphometric) fracture. -T-score less than or equal to -2.5 at the femoral neck or spine after appropriate evaluation to exclude secondary causes. -Low bone mass at the hip or spine and a 10-year fracture probability by FRAX of greater than or equal to 3% for hip fracture or greater than or equal to 20% for major osteoporotic fracture based on the [place] adapted WHO algorithm. 4. Other Recommendations: All treatment decisions require clinical judgment and consideration of individual patient factors, including patient preferences, comorbidities, previous drug use, risk factors not captured in the FRAX model (e.g. frailty, falls, vitamin D deficiency, increased bone turnover, interval significant decline in bone density) and possible under or overestimation of fracture risk by FRAX. Additional medical evaluation for secondary cause of low bone mineral density may be appropriate. FUTURE SCAN RECOMMENDATION: People with diagnosed cases of osteoporosis or at high risk for fracture should have regular bone mineral density tests. For patients eligible for Medicare, routine testing is allowed once every 2 years. The testing frequency can be increased to one year for patients who have rapidly progressing disease, those who are receiving or discontinuing medical therapy to restore bone mass, or have additional risk factors.
== END 2021-08-19 13:29 | disposition home or self-care (01) ==
LOC: HO.MAMMO 13:28
PROVIDERS: PCP Nurse Practitioner Family; Visit Provider Internal Medicine
DX: Z13.820 Encounter for screening for osteoporosis (principal); M81.0 Age-related osteoporosis without current pathological fracture; E21.3 Hyperparathyroidism, unspecified; F17.200 Nicotine dependence, unspecified, uncomplicated; Z79.899 Other long term (current) drug therapy
CPT/HCPCS: 77081

== ENCOUNTER 2021-08-24 10:36 | Outpatient (REF) | payer OTHER, SELFPAY ==
--- NOTE | ~2021-08-24 | XR_ITS ---
EXAMINATION: XR HAND, RIGHT XR HAND, LEFT CLINICAL INFORMATION: Right and left hand pain. COMPARISON: Right and left hand radiographs dated 01/05/2019. TECHNIQUE: AP, oblique, and lateral views of the right and left hands. FINDINGS: RIGHT HAND: No acute fracture or dislocation. Normal carpal alignment. Mild joint space narrowing redemonstrated at the 5th distal interphalangeal joint, unchanged. No osseous erosion. No abnormal soft tissue calcification. LEFT HAND: No acute fracture or dislocation. Normal carpal alignment. Mild joint space narrowing redemonstrated at the 5th distal interphalangeal joint, not significantly changed. No osseous erosion. No abnormal soft tissue calcification. XR/XR hand LT min 3V IMPRESSION: Right Hand: Mild degenerative arthritis at the 5th distal interphalangeal joint, unchanged. Left Hand: Mild degenerative arthritis at the 5th distal interphalangeal joint, unchanged.
--- NOTE | ~2021-08-24 | XR_ITS ---
EXAMINATION: XR KNEE, RIGHT CLINICAL INFORMATION: Right knee pain. COMPARISON: Most recent right knee radiographs dated 10/21/2015. TECHNIQUE: AP and lateral views of the right knee. FINDINGS: Tiny patellofemoral compartment marginal osteophytes, unchanged. No significant joint space narrowing. No osseous erosion. No fracture or dislocation. No abnormal soft tissue calcification. No joint effusion. XR/XR knee RT 2V IMPRESSION: Mild patellofemoral osteoarthritis, unchanged.
--- NOTE | ~2021-08-24 | XR_ITS ---
EXAMINATION: XR HAND, RIGHT XR HAND, LEFT CLINICAL INFORMATION: Right and left hand pain. COMPARISON: Right and left hand radiographs dated 01/05/2019. TECHNIQUE: AP, oblique, and lateral views of the right and left hands. FINDINGS: RIGHT HAND: No acute fracture or dislocation. Normal carpal alignment. Mild joint space narrowing redemonstrated at the 5th distal interphalangeal joint, unchanged. No osseous erosion. No abnormal soft tissue calcification. LEFT HAND: No acute fracture or dislocation. Normal carpal alignment. Mild joint space narrowing redemonstrated at the 5th distal interphalangeal joint, not significantly changed. No osseous erosion. No abnormal soft tissue calcification. XR/XR hand RT min 3V IMPRESSION: Right Hand: Mild degenerative arthritis at the 5th distal interphalangeal joint, unchanged. Left Hand: Mild degenerative arthritis at the 5th distal interphalangeal joint, unchanged.
[2021-08-24 11:25] LABS: MANUAL DIFF FLAG NO
[2021-08-24 11:38] LABS: Basophils Absolute Auto 0.1 X10*3/uL (0.0-0.2); Basophils Percent Auto 0.8 % (0-2); Eosinophils Absolute Auto 0.3 X10*3/uL (0.0-0.4); Eosinophils Percent Auto 3.2 % (0-4); Hematocrit 42.2 % (37.0-47.0); Hemoglobin 14.2 g/dl (12.0-16.0); Imm Gran Abs Auto 0.03 X10*3/uL (0.00-0.03); Imm Gran Pct Auto 0.3 % (0.0-0.4); Lymphocytes Absolute Auto 3.7 X10*3/uL (1.2-4.9); Lymphocytes Percent Auto 36.6 % (20-40); Mean Corpuscular HGB Conc 33.6 g/dl (31.0-35.0); Mean Corpuscular Hemoglobin 29.5 pg (27.0-33.0); Mean Corpuscular Volume 87.7 fL (80.0-98.0); Mean Platelet Volume 9.2 fL (9.4-12.3); Monocytes Absolute Auto 0.8 X10*3/uL (0.1-1.2); Monocytes Percent Auto 7.5 % (2-11); Neutrophils Absolute Auto 5.3 x10*3/uL (2.0-8.3); Neutrophils Percent Auto 51.6 % (45-73); Platelet Count 394 X10*3/uL (160-400); Red Blood Count 4.81 X10*6/uL (4.20-5.50); Red Cell Distribution Width 14.2 % (11.0-16.0); White Blood Count 10.2 X10*3/uL (4.8-10.8)
[2021-08-24 11:55] LABS: Alanine Aminotransferase 100 U/L (0-31); Albumin Level 4.5 g/dL (3.5-5.0); Alkaline Phosphatase 63 U/L (39-117); Anion Gap 14 (12-20); Aspartate Amino Transferase 48 U/L (5-31); Bilirubin Total 0.5 mg/dL (0.0-1.0); Blood Urea Nitrogen 13 mg/dL (9-16); Carbon Dioxide 28 mmol/L (22-29); Chloride 100 mmol/L (96-108); Estimated Glomerular Filt Rate > 60; Glucose Random 99 mg/dL (60-115); Potassium 3.1 mmol/L (3.3-5.1); Sodium 139 mmol/L (135-145); Total Protein 7.5 g/dL (6.5-8.0)
[2021-08-24 11:57] LABS: Alanine Aminotransferase 100 U/L (0-31); Albumin Level 4.5 g/dL (3.5-5.0); Alkaline Phosphatase 62 U/L (39-117); Anion Gap 15 (12-20); Aspartate Amino Transferase 46 U/L (5-31); Bilirubin Total 0.5 mg/dL (0.0-1.0); Blood Urea Nitrogen 13 mg/dL (9-16); Calcium 10.1 mg/dL (8.4-10.2); Carbon Dioxide 28 mmol/L (22-29); Chloride 100 mmol/L (96-108); Estimated Glomerular Filt Rate > 60; Glucose Random 99 mg/dL (60-115); Phosphorus 4.3 mg/dL (2.7-4.5); Sodium 140 mmol/L (135-145); Total Protein 7.5 g/dL (6.5-8.0)
[2021-08-24 12:20] LABS: Free T4 (Free Thyroxine) 1.06 ng/dL (0.71-1.85); Vitamin D 25-OH Total 25.1 ng/mL (>30)
[2021-08-24 12:21] LABS: Thyroid Stimulating Hormone 1.54 uIU/mL (0.32-4.0)
[2021-08-24 12:47] LABS: Erythrocyte Sedimentation Rate 5 MM/HR (0-20)
[2021-08-25 11:06] LABS: Calcium (PTHI) 9.8 mg/dL (8.6-10.4); PTHI 39 pg/mL (14-64)
[2021-08-28 11:01] LABS: Alkaline Phosphatase Bone 8.3 mcg/L (5.6-29.0)
== END 2021-08-24 10:37 | disposition home or self-care (01) ==
LOC: HO.HMGCLDS 10:36
PROVIDERS: Absent Provider Internal Medicine; PCP Nurse Practitioner Family; Visit Provider Nurse Practitioner Family
DX: M79.641 Pain in right hand (principal); M79.642 Pain in left hand; M25.561 Pain in right knee; M79.7 Fibromyalgia; E55.9 Vitamin D deficiency, unspecified; E21.3 Hyperparathyroidism, unspecified
CPT/HCPCS: 36415; 73130; 73560; 80053; 82306; 83970; 84075; 84100; 84439; 84443; 85025; 85652; 86140

== ENCOUNTER → 2021-08-30 08:50 | Outpatient (BNVA) | payer OTHER, SELFPAY | PROVIDERS: PCP Nurse Practitioner Family; Visit Provider Internal Medicine ==

== ENCOUNTER 2021-08-31 13:20 | Outpatient (REF) | payer OTHER, SELFPAY ==
[2021-08-31 14:35] LABS: Alanine Aminotransferase 69 U/L (0-31); Albumin Level 4.5 g/dL (3.5-5.0); Alkaline Phosphatase 58 U/L (39-117); Anion Gap 12 (12-20); Aspartate Amino Transferase 34 U/L (5-31); Bilirubin Total 0.4 mg/dL (0.0-1.0); Blood Urea Nitrogen 13 mg/dL (9-16); Calcium 10.4 mg/dL (8.4-10.2); Carbon Dioxide 29 mmol/L (22-29); Chloride 104 mmol/L (96-108); Estimated Glomerular Filt Rate > 60; Glucose Random 102 mg/dL (60-115); Potassium 3.5 mmol/L (3.3-5.1); Sodium 141 mmol/L (135-145); Total Protein 7.4 g/dL (6.5-8.0)
[2021-08-31 15:22] LABS: Creatinine, mg/dL 49.64
[2021-08-31 19:06] LABS: Creatinine, 24Hr Urine 1.1 G/Day (1.0-2.0); Total Volume 24 Hour Urine 2175 mL
[2021-09-02 17:30] LABS: Calcium, 24 Hr Urine 141 mg/24 h; Calcium/Creatinine Ratio 123 mg/g creat (30-275); Creatinine 24Hr Urine 1.15 g/24 h (0.50-2.15)
[2021-09-06 05:56] LABS: N-Telopeptide 37 (see note); NTXCreaRU 65 mg/dL (20-275)
[2021-09-08 09:46] LABS: Renin 2.88 ng/mL/h (0.25-5.82)
== END 2021-08-31 13:21 | disposition home or self-care (01) ==
LOC: HO.LAB 13:20
PROVIDERS: Nurse Practitioner Family; Visit Provider Internal Medicine
DX: E87.6 Hypokalemia (principal); R74.8 Abnormal levels of other serum enzymes; E21.3 Hyperparathyroidism, unspecified
CPT/HCPCS: 36415; 80053; 82088; 82340; 82523; 82570; 84244

== ENCOUNTER 2021-09-15 13:59 | Outpatient (REF) | payer OTHER, SELFPAY ==
--- NOTE | ~2021-09-15 | MM_ITS ---
EXAMINATION: MM SCREENING DIGITAL BREAST TOMOSYNTHESIS, BILATERAL CLINICAL INFORMATION: Screening. Asymptomatic. The lifetime risk of breast cancer based on the Tyrer-Cuzick Model is 11%. COMPARISON: Mammography: 06/25/2020, 06/20/2019, 05/25/2018, 09/12/2017 TECHNIQUE: Digital breast tomosynthesis is performed in both the craniocaudal and mediolateral oblique views along with computer-aided detection (CAD). Synthesized 2D images are generated from the tomosynthesis. FINDINGS: There are scattered areas of fibroglandular density (ACR BI-RADS breast composition Category b). Parenchymal pattern is similar to prior studies. There is no developing density or architectural abnormality. There are stable regional calcifications upper and outer right breast and lesser calcifications upper outer left breast similar to prior studies. The axilla and skin contours are unremarkable. No significant changes. MM/MM tomosynthesis screening BI IMPRESSION: No mammographic evidence of malignancy. ASSESSMENT: BI-RADS 2: Benign RECOMMENDATION: Routine annual mammography screening. This patient's information was entered into a reminder system with a target due date for their next mammogram.
[2021-09-15 14:42] LABS: Anion Gap 15 (12-20); Blood Urea Nitrogen 14 mg/dL (9-16); Calcium 10.7 mg/dL (8.4-10.2); Carbon Dioxide 28 mmol/L (22-29); Chloride 101 mmol/L (96-108); Estimated Glomerular Filt Rate > 60; Glucose Random 95 mg/dL (60-115); Potassium 3.5 mmol/L (3.3-5.1); Sodium 140 mmol/L (135-145)
[2021-09-20 14:16] LABS: Renin 4.53 ng/mL/h (0.25-5.82)
== END 2021-09-15 14:00 | disposition home or self-care (01) ==
LOC: HO.MAMMO 13:59
PROVIDERS: PCP Nurse Practitioner Family; Visit Provider Internal Medicine
DX: Z12.31 Encounter for screening mammogram for malignant neoplasm of breast (principal); E87.6 Hypokalemia
CPT/HCPCS: 36415; 77063; 77067; 80048; 82088; 84244

== ENCOUNTER 2021-10-11 09:50 | Outpatient (REF) | payer OTHER, SELFPAY ==
[2021-10-11 12:32] LABS: Free T4 (Free Thyroxine) 1.04 ng/dL (0.71-1.85); Thyroid Stimulating Hormone 2.49 uIU/mL (0.32-4.0); Vitamin D 25-OH Total 24.4 ng/mL (>30)
[2021-10-11 12:44] LABS: Alanine Aminotransferase 109 U/L (0-31); Albumin Level 4.6 g/dL (3.5-5.0); Alkaline Phosphatase 60 U/L (39-117); Anion Gap 13 (12-20); Aspartate Amino Transferase 57 U/L (5-31); Bilirubin Total 0.6 mg/dL (0.0-1.0); Blood Urea Nitrogen 12 mg/dL (9-16); Calcium 10.1 mg/dL (8.4-10.2); Carbon Dioxide 29 mmol/L (22-29); Chloride 101 mmol/L (96-108); Estimated Glomerular Filt Rate > 60; Glucose Random 95 mg/dL (60-115); Phosphorus 5.2 mg/dL (2.7-4.5); Potassium 3.8 mmol/L (3.3-5.1); Sodium 139 mmol/L (135-145); Total Protein 7.6 g/dL (6.5-8.0)
[2021-10-13 14:51] LABS: Calcium (PTHI) 10.3 mg/dL (8.6-10.4); PTHI 49 pg/mL (14-64)
[2021-10-14 01:57] LABS: Thyroglobulin 22.4 ng/mL
[2021-10-14 12:41] LABS: Prot Elec - Albumin 4.6 g/dL (3.8-4.8); Prot Elec - Alpha1 0.3 g/dL (0.2-0.3); Prot Elec - Alpha2 0.8 g/dL (0.5-0.9); Prot Elec - Beta 1 0.5 g/dL (0.4-0.6); Prot Elec - Beta 2 0.4 g/dL (0.2-0.5); Prot Elec - Gamma 0.9 g/dL (0.8-1.7); Prot Elec - Total Protein 7.4 g/dL (6.1-8.1)
[2021-10-15 08:56] LABS: Thyroglobulin Antibodies <1 IU/mL (< or = 1)
[2021-10-18 11:45] LABS: Renin 3.83 ng/mL/h (0.25-5.82)
== END 2021-10-11 09:51 | disposition home or self-care (01) ==
LOC: HO.LAB 09:50
PROVIDERS: PCP Nurse Practitioner Family; Visit Provider Internal Medicine
DX: E55.9 Vitamin D deficiency, unspecified (principal); E21.3 Hyperparathyroidism, unspecified; E04.2 Nontoxic multinodular goiter; E87.6 Hypokalemia; M81.0 Age-related osteoporosis without current pathological fracture; R74.8 Abnormal levels of other serum enzymes; Z85.850 Personal history of malignant neoplasm of thyroid
CPT/HCPCS: 36415; 80053; 82088; 82306; 83970; 84100; 84165; 84244; 84432; 84439; 84443; 86800; 99212

== ENCOUNTER → 2021-11-08 13:08 | Outpatient (BNVA) | payer OTHER, SELFPAY | PROVIDERS: PCP Nurse Practitioner Family; Visit Provider Hospitalist | DX: M79.7 Fibromyalgia (principal); Z23 Encounter for immunization; M81.0 Age-related osteoporosis without current pathological fracture; R91.8 Other nonspecific abnormal finding of lung field; R91.1 Solitary pulmonary nodule; C73 Malignant neoplasm of thyroid gland; J45.909 Unspecified asthma, uncomplicated; K21.9 Gastro-esophageal reflux disease without esophagitis | CPT/HCPCS: 90471; 90732; 99212 ==

== ENCOUNTER 2021-11-25 11:37 | Outpatient (REF) | payer OTHER, SELFPAY ==
[2021-11-25 12:53] LABS: MANUAL DIFF FLAG NO
[2021-11-25 13:13] LABS: Basophils Absolute Auto 0.1 X10*3/uL (0.0-0.2); Basophils Percent Auto 0.7 % (0-2); Eosinophils Absolute Auto 0.3 X10*3/uL (0.0-0.4); Eosinophils Percent Auto 1.9 % (0-4); Hematocrit 46.2 % (37.0-47.0); Hemoglobin 15.2 g/dl (12.0-16.0); Imm Gran Abs Auto 0.04 X10*3/uL (0.00-0.03); Imm Gran Pct Auto 0.3 % (0.0-0.4); Lymphocytes Absolute Auto 4.4 X10*3/uL (1.2-4.9); Lymphocytes Percent Auto 31.7 % (20-40); Mean Corpuscular HGB Conc 32.9 g/dl (31.0-35.0); Mean Corpuscular Hemoglobin 29.9 pg (27.0-33.0); Mean Corpuscular Volume 90.9 fL (80.0-98.0); Mean Platelet Volume 8.4 fL (9.4-12.3); Monocytes Absolute Auto 0.9 X10*3/uL (0.1-1.2); Monocytes Percent Auto 6.1 % (2-11); Neutrophils Absolute Auto 8.2 x10*3/uL (2.0-8.3); Neutrophils Percent Auto 59.3 % (45-73); Platelet Count 408 X10*3/uL (160-400); Red Blood Count 5.08 X10*6/uL (4.20-5.50); Red Cell Distribution Width 13.2 % (11.0-16.0); White Blood Count 13.9 X10*3/uL (4.8-10.8)
[2021-11-25 13:45] LABS: Anion Gap 15 (12-20); Carbon Dioxide 25 mmol/L (22-29); Chloride 103 mmol/L (96-108); Potassium 4.1 mmol/L (3.3-5.1); Sodium 139 mmol/L (135-145)
== END 2021-11-25 11:38 | disposition home or self-care (01) ==
LOC: HO.LAB 11:37
PROVIDERS: PCP Nurse Practitioner Family; Visit Provider Physician Assistant
DX: G89.29 Other chronic pain (principal); R10.9 Unspecified abdominal pain; R74.8 Abnormal levels of other serum enzymes; R13.10 Dysphagia, unspecified; K59.09 Other constipation; K21.9 Gastro-esophageal reflux disease without esophagitis; J45.909 Unspecified asthma, uncomplicated; Z79.899 Other long term (current) drug therapy
CPT/HCPCS: 36415; 80051; 85025; 99212

== ENCOUNTER 2021-11-26 11:23 | Emergency (ER) | payer OTHER, SELFPAY ==
--- NOTE | ~2021-11-26 | CT_ITS ---
EXAMINATION: CT ABDOMEN AND PELVIS WITHOUT CONTRAST CLINICAL INFORMATION: Lower abdominal pain COMPARISON: Previous MR of the pelvis February [address] of the abdomen and pelvis February 2021 TECHNIQUE: Multidetector volumetric imaging was performed from the superior aspect of the liver through the pubic symphysis. Sagittal and coronal reformatted images were obtained on the technologist's workstation. This CT examination was performed using dose optimization techniques as appropriate, variously including the following: *Automated exposure control *Adjustment of mA and/or kV according to patient size (this includes techniques or standardized protocols for targeted exams where dose is matched to indication/reason for exam; i.e. extremities or head) *Use of iterative reconstruction technique DLP: 612 mGy-cm FINDINGS: LUNG BASES: The visualized lung bases are unremarkable. LIVER, GALLBLADDER, AND BILIARY TREE: The liver is normal in size, shape, and attenuation. No focal hepatic lesion or biliary ductal dilatation is present. The gallbladder has been removed. PANCREAS: Unremarkable. SPLEEN: Unremarkable. ADRENAL GLANDS: Unremarkable. KIDNEYS AND URETERS: The kidneys are normal in size, shape, and attenuation. No hydronephrosis, hydroureter, or calculi seen. No perinephric stranding. BLADDER: Unremarkable. GASTROINTESTINAL TRACT: The small and large bowel are unremarkable. The appendix is nonvisualized. No inflammatory changes are seen in the right lower quadrant. ABDOMINAL WALL: Previous low abdominal wall ventral hernia repair with mesh. LYMPH NODES: Normal. VASCULAR: Unremarkable. PELVIC VISCERA: Uterus appears to have been removed. No pelvic mass. OSSEOUS STRUCTURES: Unremarkable. CT/CT abdomen pelvis wo con IMPRESSION: Stable postsurgical changes to the lower anterior abdominal wall post ventral hernia repair. Otherwise unremarkable exam. Fleischner guidelines were followed.
[2021-11-26 12:01] VITALS: BP 128/69; PULSE 91; RESP 16; TEMP 36.5; O2SAT 96; BMI 26.5
[2021-11-26 12:24] LABS: MANUAL DIFF FLAG NO
[2021-11-26 12:34] LABS: Appearance Urine CLEAR; Color Urine YELLOW; Glucose Urine UA NEG (NEG); Leukocyte Esterase Urine NEG (NEG); Nitrite Urine NEG (NEG); Specific Gravity - Urine <= 1.005 (1.005-1.025); Urine Blood NEG (NEG); Urine Ketones NEG (NEG); Urine Protein NEG (NEG-TRACE)
[2021-11-26 12:37] LABS: Basophils Absolute Auto 0.1 X10*3/uL (0.0-0.2); Eosinophils Absolute Auto 0.3 X10*3/uL (0.0-0.4); Eosinophils Percent Auto 3.7 % (0-4); Hematocrit 46.4 % (37.0-47.0); Hemoglobin 15.5 g/dl (12.0-16.0); Imm Gran Abs Auto 0.04 X10*3/uL (0.00-0.03); Imm Gran Pct Auto 0.4 % (0.0-0.4); Lymphocytes Absolute Auto 4.2 X10*3/uL (1.2-4.9); Lymphocytes Percent Auto 47.2 % (20-40); Mean Corpuscular HGB Conc 33.4 g/dl (31.0-35.0); Mean Corpuscular Hemoglobin 30.2 pg (27.0-33.0); Mean Corpuscular Volume 90.3 fL (80.0-98.0); Mean Platelet Volume 8.4 fL (9.4-12.3); Monocytes Absolute Auto 0.7 X10*3/uL (0.1-1.2); Monocytes Percent Auto 7.6 % (2-11); Neutrophils Absolute Auto 3.6 x10*3/uL (2.0-8.3); Neutrophils Percent Auto 40.1 % (45-73); Platelet Count 430 X10*3/uL (160-400); Red Blood Count 5.14 X10*6/uL (4.20-5.50); Red Cell Distribution Width 13.2 % (11.0-16.0)
[2021-11-26 12:50] LABS: Alanine Aminotransferase 103 U/L (0-31); Albumin Level 4.7 g/dL (3.5-5.0); Alkaline Phosphatase 65 U/L (39-117); Anion Gap 14 (12-20); Aspartate Amino Transferase 47 U/L (5-31); Bilirubin Total 0.6 mg/dL (0.0-1.0); Blood Urea Nitrogen 8 mg/dL (9-16); Carbon Dioxide 22 mmol/L (22-29); Chloride 106 mmol/L (96-108); Creatinine Clr Calc Pharmacy 79.4; Estimated Glomerular Filt Rate > 60; Glucose Random 88 mg/dL (60-115); Lipase 34 U/L (8-78); Potassium 4.4 mmol/L (3.3-5.1); Sodium 138 mmol/L (135-145); Total Protein 7.7 g/dL (6.5-8.0)
--- NOTE | 2021-11-26 13:34 | ED.RECABL ---
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 MD complaint: abnormal lab (WBC count 13.9 yesterday at GI office c/o abdominal pain) Initial visit (ago): day(s) (1) Initial visit for: other (abdominal pain) Returns today for: called because of abnormal lab/test (WBC 13.9) Symptoms since prior visit: no new symptoms Context: called for abnormal lab result Associated symptoms: abdominal pain Related Data Home Medications Medication Instructions Recorded Confirmed quetiapine 100 mg tablet 100 mg PO BEDTIME 06/04/20 11/25/21 prazosin 2 mg capsule 2 mg PO BEDTIME 12/31/20 11/25/21 fluvoxamine 100 mg tablet 100 mg PO BEDTIME 01/04/21 11/25/21 hydroxyzine pamoate 50 mg capsule 0 mg PO DAILY 10/11/21 11/25/21 Previous Rx's Medication Instructions Recorded conjugated estrogens 0.625 mg/gram 0.625 mg VAGINAL DAILY #30 g 01/26/21 vaginal cream (Premarin) polyethylene glycol 3350 17 gram 17 g PO DAILY #28 packet 07/01/21 oral powder packet (Purelax) omeprazole 20 mg capsule,delayed 20 mg PO DAILY #30 cap 08/16/21 release ezetimibe 10 mg tablet 10 mg PO DAILY 90 Days #90 tab 08/24/21 cholecalciferol (vitamin D3) 25 25 mcg PO DAILY #30 tab 09/13/21 mcg (1,000 unit) tablet (Vitamin D3) sennosides 8.6 mg tablet (Senna 17.2 mg PO BEDTIME PRN #60 tab 09/13/21 Laxative) sumatriptan succinate 25 mg tablet 25 mg PO ONCE PRN 30 Days #12 tab 09/13/21 hydrocortisone valerate 0.2 % 1 appl TOPICAL BID PRN 30 Days #45 10/03/21 topical cream g amitriptyline 10 mg tablet 10 mg PO BEDTIME 30 Days #30 tab 10/19/21 amlodipine 5 mg tablet 5 mg PO DAILY #90 tab 10/25/21 chlorthalidone 25 mg tablet 25 mg PO DAILY #90 tab 10/25/21 potassium chloride 10 mEq 40 meq PO DAILY 30 Days #120 cap 10/27/21 capsule,extended release albuterol sulfate 2.5 mg (3 mL) INHALATION Q6H PRN 11/08/21 30 Days #180 ml albuterol sulfate 90 mcg/actuation 2 inh INHALATION Q6H PRN 30 Days 11/08/21 aerosol inhaler #18 g loratadine 10 mg tablet 10 mg PO DAILY #30 tab 11/08/21 montelukast 10 mg tablet 10 mg PO BEDTIME #30 tab 11/08/21 (Singulair) diclofenac sodium 1 % topical gel 2 g TOPICAL BID PRN #100 g 11/10/21 azelastine 137 mcg (0.1 %) nasal 1 spray INTRANASAL BID #30 ml 11/12/21 spray aerosol fluticasone propionate 110 1 puff INHALATION BID #12 ea 11/12/21 mcg/actuation HFA aerosol inhaler (Flovent HFA) diclofenac sodium 50 mg 50 mg PO BID PRN #60 tab 11/13/21 tablet,delayed release omega-3 acid ethyl esters 1 gram 1 cap PO BID 90 Days #180 cap 11/20/21 capsule tizanidine 2 mg tablet 4 mg PO BID PRN #60 tab 11/22/21 gabapentin 300 mg capsule See Rx Instructions PO .COMPLEX 11/25/21 #120 cap peg-electrolyte solution 420 gram 240 ml PO ONCE 1 Days #4000 ml 11/25/21 oral solution polyethylene glycol 3350 17 17 g PO BID #510 g 11/25/21 gram/dose oral powder (Miralax) Allergies Allergy/AdvReac Type Severity Reaction Status Date / Time Sulfa (Sulfonamide Allergy Unknown HIVES Verified 11/26/21 12:09 Antibiotics) [SULFA (SULFONAMIDE ANTIBIOTICS)] aspirin [ASPIRIN] AdvReac Unknown ABD PAIN Verified 11/26/21 12:09 morphine [MORPHINE] AdvReac Unknown ABD PAIN Verified 11/26/21 12:09 Review of Systems Review of Systems: Constitutional : No Weight loss, No Fever, No Chills ENT/Mouth : No sore throat, No Rhinorrhea Eyes: No Swelling, No Redness Cardiovascular : No Chest Pain, No SOB, NoEdema Respiratory : No Cough, No Sputum, No Wheezing Gastrointestinal : no Nausea, no Vomiting, no Diarrhea, positive abdominal Pain, No Hematochezia, No Melena Genitourinary : No Dysuria, No Urinary Frequency, No Hematuria, No Urgency Musculoskeletal : No joint pain, No Myalgias, No Joint Swelling, pos R sided buttock pain into right leg Skin : No Skin Lesions, No rash Neuro : No Weakness, No Numbness, No Dizziness, No Headache Psych : No Anxiety/Panic, No Depression Heme/Lymph: No Bruising, No Lymphadenopathy Endocrine : No Polyuria, No Polydipsia All other systems reviewed and are negative. [facility] Past Medical History Attestation statement: The following information was validated with the patient. Medical History Acid reflux Anxiety Asthma Asthma Chronic abdominal pain Depression Difficulty swallowing Elevated cholesterol Fibromyalgia GERD (gastroesophageal reflux disease) History of bipolar disorder History of depression History of kidney stones History of thyroid cancer HTN (hypertension) Hx of migraines Hyperparathyroidism Leukocytosis Multinodular thyroid Osteoporosis PONV (postoperative nausea and vomiting) Pulmonary nodule Pulmonary nodules Thrombocytosis Thyroid cancer Thyroid cancer Thyroid nodule Vitamin D deficiency Vitamin D deficiency Surgical History H/O colonoscopy H/O esophagogastroduodenoscopy History of bilateral oophorectomy History of thyroid surgery History of total abdominal hysterectomy Hx of appendectomy Hx of cholecystectomy S/P excision of lipoma Family History Family History Father Diabetes mellitus Mother HTN (hypertension) High cholesterol Mental health disorder Maternal Grandfather Myocardial infarction Maternal Grandmother No problems noted. Paternal Grandfather No problems noted. Paternal Grandmother No problems noted. Sister Mental health disorder Social History Social History Household Members: None Housing: Apartment Do you presently have visiting nurse or other home services: Yes Patient Tobacco Use Status: Current everyday Tobacco user Tobacco use type: Cigarette Cigarettes Per Day: 5 e-Cigarette/Vaping Use: Never Used Second Hand Smoke Exposure: No Advance Directives: No Advance Directives Information Provided: Yes Patient : No service: No Current occupational status: disabled Physical Exam Vital Signs: Vital Signs: Last Vital Signs Temp 97.7 F 11/26/21 12:01 Pulse 72 11/26/21 14:00 Resp 14 11/26/21 14:00 BP 107/56 L 11/26/21 14:00 Pulse Ox 98 11/26/21 14:00 BMI result Body Mass Index 26.5 Appearance: Alert. Oriented X3. No acute distress. Eyes: Pupils equal, round and reactive to light. ENT: Pharynx normal. Neck: Normal inspection. Neck supple. CVS: Normal heart rate and rhythm. Pulses normal. Respiratory: No respiratory distress. Breath sounds normal. Abdomen: Soft and mild suprapubic ttp no rebound or guarding Back: ttp in R buttock pain radiates down R leg Skin: Skin warm and dry. Normal skin color. Normal skin turgor. Extremities: No lower extremity edema. No calf ttp Neuro: Oriented X 3. No motor deficit. No sensory deficit. Course Course Course Narrative: signed out to Dr. Keller pending CT scan MDM - Recheck/Abnormal Lab/Rx MDM Narrative Medical decision making narrative: 56 yo female with hx of chronic abdominal pain, headaches, sinusitis, leukocytosis and thrombocytosis, HLD, asthma, fibromyalgia here with c/o abdominal pain x 1 week, told she had elevated WBC and infection in her body and to come to the ED (has chronic WBC count and was seen and DC by hematology). Her pain is likely chronic in nature and she is planning for colonoscopy. She also has R sided sciatica but is NV intact. Will obtain basic labs, UA, CT scan for obstruction/constipation/renal colic. PO medications for symptom control. Lab Data Result diagrams: 11/26/21 12:17 11/26/21 12:17 Labs: Lab Results 11/26/21 11/26/21 11/26/21 Range/Units 12:17 12:17 12:17 WBC 9.0 (4.8-10.8) X10*3/uL RBC 5.14 (4.20-5.50) X10*6/uL Hgb 15.5 (12.0-16.0) g/dl Hct 46.4 (37.0-47.0) % MCV 90.3 (80.0-98.0) fL MCH 30.2 (27.0-33.0) pg MCHC 33.4 (31.0-35.0) g/dl RDW 13.2 (11.0-16.0) % Plt Count 430 H (160-400) X10*3/uL MPV 8.4 L (9.4-12.3) fL Immature Gran % (Auto) 0.4 (0.0-0.4) % Neut % (Auto) 40.1 L (45-73) % Lymph % (Auto) 47.2 H (20-40) % [place] % (Auto) 7.6 (2-11) % Eos % (Auto) 3.7 (0-4) % Baso % (Auto) 1.0 (0-2) % Lymph # (Auto) 4.2 (1.2-4.9) X10*3/uL [place] # (Auto) 0.7 (0.1-1.2) X10*3/uL Eos # (Auto) 0.3 (0.0-0.4) X10*3/uL Baso # (Auto) 0.1 (0.0-0.2) X10*3/uL Abs Immat Gran (auto) 0.04 H (0.00-0.03) X10*3/uL Absolute Neuts (auto) 3.6 (2.0-8.3) x10*3/uL Absolute Nucleated RBC 0.000 (0.0-0.012) X10*3/uL Nucleated RBC % (auto) 0.0 (0.0-0.2) /100WBC Sodium 138 (135-145) mmol/L Potassium 4.4 (3.3-5.1) mmol/L Chloride 106 (96-108) mmol/L Carbon Dioxide 22 (22-29) mmol/L Anion Gap 14 (12-20) BUN 8 L (9-16) mg/dL Creatinine 0.75 (0.5-1.4) mg/dL Estim Creat Clear Calc 79.4 Estimated GFR > 60 Random Glucose 88 (60-115) mg/dL Calcium 10.0 (8.4-10.2) mg/dL Total Bilirubin 0.6 (0.0-1.0) mg/dL AST 47 H (5-31) U/L ALT 103 H (0-31) U/L Alkaline Phosphatase 65 (39-117) U/L Total Protein 7.7 (6.5-8.0) g/dL Albumin 4.7 (3.5-5.0) g/dL Lipase 34 (8-78) U/L Urine Color YELLOW Urine Appearance CLEAR Urine pH 6.0 (5.0-8.0) Ur Specific [place] <= 1.005 (1.005-1.025) Urine Protein NEG (NEG-TRACE) MG/DL Urine Glucose (UA) NEG (NEG) MG/DL Urine Ketones NEG (NEG) MG/DL Urine Blood NEG (NEG) Urine Nitrite NEG (NEG) Ur Leukocyte Esterase NEG (NEG) Discharge Plan Discharge Clinical Impression: Abdominal pain, Sciatica Patient Disposition: Still a Patient Instructions: Abdominal Pain (ED), Sciatica (ED) Prescriptions: No Action polyethylene glycol 3350 [Purelax] 17 gram powder in packet 17 g PO DAILY Qty: 28 3RF omeprazole 20 mg capsule,delayed release(DR/EC) 20 mg PO DAILY Qty: 30 11RF ezetimibe 10 mg tablet 10 mg PO DAILY 90 Days Qty: 90 1RF sumatriptan succinate 25 mg tablet 25 mg PO ONCE PRN (Reason: migraine headache) 30 Days Qty: 12 3RF sennosides [Senna Laxative] 8.6 mg tablet 17.2 mg PO BEDTIME PRN (Reason: for constipation) Qty: 60 2RF cholecalciferol (vitamin D3) [Vitamin D3] 25 mcg (1,000 unit) tablet 25 mcg PO DAILY Qty: 30 11RF hydrocortisone valerate 0.2 % cream 1 appl topical BID PRN (Reason: skin irritation) 30 Days Qty: 45 2RF amitriptyline 10 mg tablet 10 mg PO BEDTIME 30 Days Qty: 30 0RF amlodipine 5 mg tablet 5 mg PO DAILY Qty: 90 0RF chlorthalidone 25 mg tablet 25 mg PO DAILY Qty: 90 0RF potassium chloride 10 mEq capsule, extended release 40 meq PO DAILY 30 Days Qty: 120 5RF diclofenac sodium 1 % gel 2 g topical BID PRN (Reason: for pain) Qty: 100 2RF Flovent HFA 110 mcg/actuation HFA aerosol inhaler 1 puff inhalation BID Qty: 12 2RF azelastine 137 mcg (0.1 %) aerosol,spray 1 spray intranasal BID Qty: 30 2RF diclofenac sodium 50 mg tablet,delayed release (DR/EC) 50 mg PO BID PRN (Reason: for pain) Qty: 60 1RF omega-3 acid ethyl esters 1 gram capsule 1 cap PO BID 90 Days Qty: 180 0RF tizanidine 2 mg tablet 4 mg PO BID PRN (Reason: for muscle spasm) Qty: 60 0RF gabapentin 300 mg capsule See Rx Instructions PO .COMPLEX Qty: 120 3RF Rx Instructions: one cap by mouth twice a day in the daytime and 2 cap at night quetiapine 100 mg Tablet 100 mg PO BEDTIME 0RF prazosin 2 mg capsule 2 mg PO BEDTIME 0RF Premarin 0.625 mg/gram cream 0.625 mg vaginal DAILY Qty: 30 11RF Rx Instructions: use daily for the first two weeks and then 2-3 times per week fluvoxamine 100 mg tablet 100 mg PO BEDTIME 0RF peg-electrolyte soln 420 gram recon soln 240 ml PO ONCE 1 Days Qty: 4000 0RF Rx Instructions: Start at 6:00pm the evening before procedure, drink one 8oz glass every 15 minutes until complete polyethylene glycol 3350 [Miralax] 17 gram/dose powder 17 g PO BID Qty: 510 2RF Rx Instructions: bid for 7 days prior to prep day hydroxyzine pamoate 50 mg capsule 0 mg PO DAILY 0RF loratadine 10 mg tablet 10 mg PO DAILY Qty: 30 11RF montelukast [Singulair] 10 mg tablet 10 mg PO BEDTIME Qty: 30 11RF albuterol sulfate 2.5 mg /3 mL (0.083 %) solution for nebulization 2.5 mg inhalation Q6H PRN (Reason: shortness of breath or wheezing) 30 Days Qty: 180 11RF albuterol sulfate 90 mcg/actuation HFA aerosol inhaler 2 inh inhalation Q6H PRN (Reason: shortness of breath or wheezing) 30 Days Qty: 18 2RF
[2021-11-26 14:00] VITALS: BP 107/56; PULSE 72; RESP 14; O2SAT 98
[2021-11-26] MEDS: Cyclobenzaprine HCl 10 MG TABLET PO (14:54)
[2021-11-26] MEDS: HYDROcodone Bit/Acetam 5/325 TABLET 1 TAB PO (14:54)
[2021-11-26] MEDS: Ondansetron ODT 4 MG TAB.RAPDIS TRANSLINGU (14:55)
== END 2021-11-26 17:31 | disposition home or self-care (01) ==
PROVIDERS: Emergency Provider Emergency Medicine; PCP Nurse Practitioner Family
DX: R10.9 Unspecified abdominal pain (principal); M54.31 Sciatica, right side; I10 Essential (primary) hypertension; E78.5 Hyperlipidemia, unspecified; Z85.850 Personal history of malignant neoplasm of thyroid
CPT/HCPCS: 36415; 74176; 80053; 81003; 83690; 85025; 99284

== ENCOUNTER → 2022-01-13 11:54 | Outpatient (BNVA) | payer OTHER, SELFPAY | PROVIDERS: PCP Nurse Practitioner Family; Visit Provider Internal Medicine | DX: Z13.89 Encounter for screening for other disorder (principal) ==

== ENCOUNTER → 2022-01-24 10:26 | Outpatient (BNVA) | payer OTHER, SELFPAY | PROVIDERS: PCP Nurse Practitioner Family; Visit Provider Nurse Practitioner Family | DX: G43.709 Chronic migraine without aura, not intractable, without status migrainosus (principal); G47.9 Sleep disorder, unspecified; G47.19 Other hypersomnia; M54.2 Cervicalgia | CPT/HCPCS: 99202 ==

== ENCOUNTER → 2022-04-18 11:02 | Outpatient (REF) | payer OTHER, SELFPAY ==
--- NOTE | ~2022-04-18 | US_ITS ---
EXAMINATION: US THYROID CLINICAL INFORMATION: Goiter. COMPARISON: Ultrasound thyroid 05/27/2021. TECHNIQUE: Linear transducer degroot-scale and color Doppler examination with attention to the region of the thyroid. FINDINGS: SIZE: Measurements of the thyroid lobes and nodules are given in sagittal, anteroposterior and transverse dimensions respectively. Right Thyroid Lobe: 5.2 x 2.3 x 2.1 cm, volume 13.1 mL. Previously 5.5 x 2.2 x 2.4 cm, volume 15.2 mL. Parenchyma: The gland echotexture is homogeneous. Thyroid vascularity is normal. Left Thyroid Lobe: Left thyroid removed. Isthmus: 0.3 cm in maximum AP dimension. Previously 0.3 cm. Estimated total number of nodules greater than or equal to 1 cm: 0. 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 Location: Right mid lateral. Size: 0.8 x 0.8 x 0.5 cm, volume 0.17 mL. Previously: 0.9 x 0.5 x 0.7 cm, volume 0.16 mL. Nodule characteristics: Composition: Solid (2). Echogenicity: Hypoechoic (2). Shape: Not taller than wide (0). Margins: Smooth (0). Echogenic Foci: None (0). ACR TI-RADS total points: 4 Previous: 4 ACR TI-RADS category: 4 Previous: 4 Significant change in size (>/= 20% in 2 dimensions and minimal increase of 2 mm or 50% or greater increase in volume): None. Change in features: None. Change in ACR TI-RADS risk category: None. 2. Location: Right lower pole. Size: 0.4 x 0.4 x 0.3 cm, volume 0.02 mL. Previously: 0.4 x 0.4 x 0.5 cm, volume 0.04 mL. Nodule characteristics: Composition: Cystic(0). ACR TI-RADS total points: 0 Previous: 0 ACR TI-RADS category: 1 Previous: 0 Significant change in size (>/= 20% in 2 dimensions and minimal increase of 2 mm or 50% or greater increase in volume): None. Change in features: None. Change in ACR TI-RADS risk category: None. 3. Location: Right lower pole. Size: 0.3 x 0.3 x 0.2 cm, volume 0.01 mL. Previously: 0.5 x 0.3 x 0.3 cm, volume 0.02 mL. Nodule characteristics: Composition: Cystic(0). ACR TI-RADS total points: 0 Previous: 0 ACR TI-RADS category: 1 Previous: 1 Significant change in size (>/= 20% in 2 dimensions and minimal increase of 2 mm or 50% or greater increase in volume): None. Change in features: None. Change in ACR TI-RADS risk category: None. NODES: No lymphadenopathy is seen in the tissue surrounding the thyroid gland. US/US thyroid IMPRESSION: Multiple pulmonary nodules, the largest measured are stable. The left lobe has been removed. The right lobe is enlarged and unchanged to previous study. ACR TI-RADS RECOMMENDATION REFERENCE: Ultrasound-guided fine-needle aspiration, followup ultrasound, no further follow up. * TR1 (0 point) and TR 2 (2 points): No FNA or follow up * TR3 (3 points): FNA if more than or equal to 2.5 cm in maximum dimension, followup ultrasound in 1, 3 and 5 years if 1.5 to 2.4 cm in maximum dimension. * TR4 (4-6 points): FNA if more than or equal to 1.5 cm in maximum dimension, followup ultrasound in 1, 2, 3 and 5 years if 1 to 1.4 cm in maximum dimension. * TR5 (more than or equal to 7 points): FNA if more than or equal to 1 cm in maximum dimension, followup ultrasound every year for 5 years if 0.5 to 0.9 cm in maximum dimension. * TR3, TR4 or TR5 nodules that are below the size threshold for follow up receive no follow up.
== END ==
LOC: HO.SL 11:02
PROVIDERS: PCP Nurse Practitioner Family; Visit Provider Nurse Practitioner Family
DX: E04.2 Nontoxic multinodular goiter (principal); G47.9 Sleep disorder, unspecified; G47.19 Other hypersomnia; R06.83 Snoring
CPT/HCPCS: 76536; 95806

== ENCOUNTER → 2022-05-02 14:18 | Outpatient (BNVA) | payer OTHER, SELFPAY | PROVIDERS: PCP Nurse Practitioner Family; Visit Provider Internal Medicine Rheumatology | DX: M79.7 Fibromyalgia (principal); Z79.899 Other long term (current) drug therapy | CPT/HCPCS: 99212 ==

== ENCOUNTER → 2022-06-26 22:37 | Outpatient (REF) | payer OTHER, SELFPAY | LOC: HO.SL 22:37 | PROVIDERS: PCP Nurse Practitioner Family; Visit Provider Nurse Practitioner Family | DX: G47.19 Other hypersomnia (principal) | CPT/HCPCS: 95810 ==

== ENCOUNTER 2022-06-27 06:18 | Outpatient (REF) | payer OTHER, SELFPAY ==
[2022-06-27 09:17] LABS: Alanine Aminotransferase 79 U/L (0-31); Albumin Level 4.9 g/dL (3.5-5.0); Alkaline Phosphatase 63 U/L (39-117); Anion Gap 19 (12-20); Aspartate Amino Transferase 39 U/L (5-31); Bilirubin Total 0.7 mg/dL (0.0-1.0); Blood Urea Nitrogen 12 mg/dL (9-16); Calcium 10.5 mg/dL (8.4-10.2); Carbon Dioxide 25 mmol/L (22-29); Chloride 97 mmol/L (96-108); Estimated Glomerular Filt Rate > 60; Glucose Random 103 mg/dL (60-115); Phosphorus 4.4 mg/dL (2.7-4.5); Potassium 3.3 mmol/L (3.3-5.1); Sodium 138 mmol/L (135-145); Total Protein 7.9 g/dL (6.5-8.0)
[2022-06-27 09:22] LABS: Free T4 (Free Thyroxine) 1.31 ng/dL (0.71-1.85); Thyroid Stimulating Hormone 2.17 uIU/mL (0.32-4.0); Vitamin D 25-OH Total 29.2 ng/mL (>30)
[2022-06-28 13:06] LABS: PTHI 48 pg/mL (16-77)
== END 2022-06-27 06:19 | disposition home or self-care (01) ==
LOC: HO.LAB 06:18
PROVIDERS: PCP Nurse Practitioner Family; Visit Provider Internal Medicine
DX: E04.2 Nontoxic multinodular goiter (principal); E55.9 Vitamin D deficiency, unspecified; E21.3 Hyperparathyroidism, unspecified
CPT/HCPCS: 36415; 80053; 82306; 83970; 84100; 84439; 84443

== ENCOUNTER → 2022-08-09 12:26 | Outpatient (BNVA) | payer OTHER, SELFPAY | PROVIDERS: PCP Nurse Practitioner Family; Visit Provider Nurse Practitioner Family | DX: G43.709 Chronic migraine without aura, not intractable, without status migrainosus (principal); M54.2 Cervicalgia; Z79.899 Other long term (current) drug therapy | CPT/HCPCS: 99212 ==

== ENCOUNTER 2022-08-16 11:07 | Outpatient (REF) | payer OTHER, SELFPAY ==
--- NOTE | ~2022-08-16 | XR_ITS ---
EXAMINATION: XR CERVICAL SPINE CLINICAL INFORMATION: Neck pain COMPARISON: None TECHNIQUE: 6 views of the cervical spine, inclusive of flexion and extension and bilateral oblique views, were obtained. FINDINGS: Bone alignment is normal. No fracture or dislocation. No instability on flexion-extension views. There is degenerative spondylosis and degenerative disc disease at C5-C6 and C6-C7. No appreciable neural foraminal narrowing from bony osteophyte. Mild neuroforaminal narrowing from bony osteophyte bilaterally at C5-C6. Surgical clips in the left anterior lower neck. Prevertebral soft tissues otherwise normal. XR/XR cervical spine w flex/ext IMPRESSION: Mild degenerative changes.
== END 2022-08-16 11:08 | disposition home or self-care (01) ==
LOC: HO.XRAY 11:07
PROVIDERS: PCP Nurse Practitioner Family; Visit Provider Nurse Practitioner Family
DX: M54.2 Cervicalgia (principal)
CPT/HCPCS: 72052

== ENCOUNTER 2022-09-22 08:59 | Day surgery (SDC) | payer OTHER, SELFPAY ==
[2022-09-08 12:48] VITALS: BMI 27.8
--- NOTE | 2022-09-21 12:11 | HO.ANESPROP2 ---
Documented by User: Debra Apple NP 09/21/22 12:12 HPI - Anesthesia Eval Consult details Narrative: 57yo F for Upper Endoscopy and Colonoscopy [facility] Active Problems Active Problems: All Active Problems (Updated 09/08/22 @ 12:43 by Rachel Donnelly RN) Hyperplastic colon polyp (Acute) Acid reflux (Acute) Asthma (Acute) Pulmonary nodules (Acute) Hemorrhoid (Acute) History of thyroid cancer (Acute) Vitamin D deficiency (Acute) Body aches (Acute) Elevated liver enzymes (Acute) Dyslipidemia (Acute) Left knee pain (Acute) Liver cyst (Acute) Abdominal pain (Acute) Chronic constipation (Acute) Right knee pain (Acute) Bilateral hand pain (Acute) Chronic headaches (Acute) Dysphagia (Acute) Chronic migraine without aura (Acute) Sleep disorder (Acute) Excessive daytime sleepiness (Acute) Large breasts (Acute) Cervicalgia (Acute) ROSE positive (Acute) Chronic abdominal pain (Acute) Pulmonary nodule (Acute) Osteoporosis (Acute) Hyperparathyroidism (Acute) Multinodular thyroid (Acute) Depression (Acute) Anxiety (Acute) Asthma (Acute) Fibromyalgia (Acute) Past Medical History Medical History (Updated 09/08/22 @ 12:43 by Rachel Donnelly RN) Anxiety Asthma Bipolar disorder Chronic abdominal pain Depression Difficulty swallowing Elevated cholesterol Fibromyalgia GERD (gastroesophageal reflux disease) HTN (hypertension) Hyperparathyroidism Leukocytosis Migraines Multinodular thyroid Osteoporosis PONV (postoperative nausea and vomiting) Pulmonary nodule Renal calculi Thrombocytosis Thyroid cancer Vitamin D deficiency Family History Family History Father Diabetes mellitus Mother HTN (hypertension) High cholesterol Mental health disorder Maternal Grandfather Myocardial infarction Maternal Grandmother No problems noted. Paternal Grandfather No problems noted. Paternal Grandmother No problems noted. Sister Mental health disorder Surgical History Surgical History (Updated 09/07/22 @ 09:48 by Rachel Donnelly RN) H/O colonoscopy H/O esophagogastroduodenoscopy History of bilateral oophorectomy History of total abdominal hysterectomy Hx of appendectomy Hx of cholecystectomy Hx of thyroidectomy S/P excision of lipoma History of Problems with Anesthesia: Yes (PONV) Social History Social History Household Members: None Housing: Apartment Are you a primary healthcare specialist to a significant other at home: No Do you presently have visiting nurse or other home services: Yes Alcohol intake: never Patient Tobacco Use Status: Current everyday Tobacco user Tobacco use type: Cigarette Cigarettes Per Day: 5 Years Smoked: 20 e-Cigarette/Vaping Use: Never Used Second Hand Smoke Exposure: No Use of substances other than those prescribed or required for medical reasons: No Have you been hit, kicked, punched, or otherwise hurt by someone within the past year? If so, by whom?: No Are you DNR?: No Advance Directives: Yes Advance Directives Information Provided: Yes Advance Directives on File: Yes Advance Directives Date on File: 10/11/16 Recently lost weight without trying: No Eating poorly because of decreased appetite: No Nutrition Risks: No Nutritional Risk Poor oral hygiene: No service: No Current occupational status: disabled Meds Allergies Allergy/AdvReac Type Severity Reaction Status Date / Time Sulfa (Sulfonamide Allergy Intermediate HIVES Verified 09/07/22 09:49 Antibiotics) [SULFA (SULFONAMIDE ANTIBIOTICS)] aspirin [ASPIRIN] AdvReac Intermediate ABD PAIN Verified 09/07/22 09:49 morphine [MORPHINE] AdvReac Intermediate ABD PAIN Verified 09/07/22 09:49 Home Medications Medication Instructions Recorded Confirmed Last Taken Type quetiapine 100 mg tablet 100 mg PO BEDTIME 06/04/20 09/08/22 Unknown History prazosin 2 mg capsule 2 mg PO BEDTIME 12/31/20 09/08/22 Unknown History fluvoxamine 100 mg tablet 100 mg PO BEDTIME 01/04/21 09/08/22 Unknown History hydroxyzine pamoate 50 mg capsule 0 mg PO DAILY 10/11/21 09/08/22 Unknown History cyclobenzaprine 10 mg tablet 10 mg PO BEDTIME PRN muscle spasm 08/09/22 09/08/22 Unknown History alendronate 70 mg tablet 1 tab PO QWEEK 09/08/22 09/08/22 Unknown History Exam Exam Date and Time: September 21, 2022 1211 Height,Weight and Vital Signs: Height 5 ft 3 in Weight 71.214 kg Pertinent Lab Results Pertinent Lab Results: Laboratory Tests 11/26/21 06/27/22 12:17 06:25 WBC 9.0 Hgb 15.5 Hct 46.4 Plt Count 430 H Sodium 138 Potassium 3.3 D Chloride 97 Carbon Dioxide 25 BUN 12 Creatinine 0.77 Assessment and Plan Assessment Anesthesia Assessment: Chart Reviewed Final Anesthetic Review History of Problems with Anesthesia: Yes (PONV) Documented by User: Saeid Willingham MD 09/22/22 10:36 [facility] Past Medical History Medical History (Updated 09/08/22 @ 12:43 by Rachel Donnelly, RHIANNON) Anxiety Asthma Bipolar disorder Chronic abdominal pain Depression Difficulty swallowing Elevated cholesterol Fibromyalgia GERD (gastroesophageal reflux disease) HTN (hypertension) Hyperparathyroidism Leukocytosis Migraines Multinodular thyroid Osteoporosis PONV (postoperative nausea and vomiting) Pulmonary nodule Renal calculi Thrombocytosis Thyroid cancer Vitamin D deficiency Family History Family History Father Diabetes mellitus Mother HTN (hypertension) High cholesterol Mental health disorder Maternal Grandfather Myocardial infarction Maternal Grandmother No problems noted. Paternal Grandfather No problems noted. Paternal Grandmother No problems noted. Sister Mental health disorder Family history of problems with anesthesia: No Surgical History Surgical History (Updated 09/07/22 @ 09:48 by Rachel Donnelly RN) H/O colonoscopy H/O esophagogastroduodenoscopy History of bilateral oophorectomy History of total abdominal hysterectomy Hx of appendectomy Hx of cholecystectomy Hx of thyroidectomy S/P excision of lipoma History of Problems with Anesthesia: No (PONV) Social History Social History Household Members: None Housing: Apartment Are you a primary healthcare specialist to a significant other at home: No Do you presently have visiting nurse or other home services: Yes Alcohol intake: never Patient Tobacco Use Status: Current everyday Tobacco user Tobacco use type: Cigarette Cigarettes Per Day: 5 Years Smoked: 20 e-Cigarette/Vaping Use: Never Used Second Hand Smoke Exposure: No Use of substances other than those prescribed or required for medical reasons: No Have you been hit, kicked, punched, or otherwise hurt by someone within the past year? If so, by whom?: No Are you DNR?: No Advance Directives: Yes Advance Directives Information Provided: Yes Advance Directives on File: Yes Advance Directives Date on File: 10/11/16 Recently lost weight without trying: No Eating poorly because of decreased appetite: No Nutrition Risks: No Nutritional Risk Poor oral hygiene: No service: No Current occupational status: disabled Meds Allergies Allergy/AdvReac Type Severity Reaction Status Date / Time Sulfa (Sulfonamide Allergy Intermediate HIVES Verified 09/07/22 09:49 Antibiotics) [SULFA (SULFONAMIDE ANTIBIOTICS)] aspirin [ASPIRIN] AdvReac Intermediate ABD PAIN Verified 09/07/22 09:49 morphine [MORPHINE] AdvReac Intermediate ABD PAIN Verified 09/07/22 09:49 Home Medications Medication Instructions Recorded Confirmed Last Taken Type quetiapine 100 mg tablet 100 mg PO BEDTIME 06/04/20 09/08/22 Unknown History prazosin 2 mg capsule 2 mg PO BEDTIME 12/31/20 09/08/22 Unknown History fluvoxamine 100 mg tablet 100 mg PO BEDTIME 01/04/21 09/08/22 Unknown History hydroxyzine pamoate 50 mg capsule 0 mg PO DAILY 10/11/21 09/08/22 Unknown History cyclobenzaprine 10 mg tablet 10 mg PO BEDTIME PRN muscle spasm 08/09/22 09/08/22 Unknown History alendronate 70 mg tablet 1 tab PO QWEEK 09/08/22 09/08/22 Unknown History Exam Airway Mallampati Class: II TM Dist: >3cm Neck ROM: Full Heart: rrr Lungs: cta Assessment and Plan Final Anesthetic Review Family History of Problems with Anesthesia: No History of Problems with Anesthesia: No (PONV) NPO: Yes ASA Class: III Final Preanesthetic Review: No Changes in Pt Med Stat, Meds/Allgs Chart Reviewed, Consent Obtained/Reviewed and Anes Risks/Benef Reviewed Patient Risk: Intermediate Procedure Risk: Intermediate Anesthetic Plan Anesthetic Plan: MAC: Disposition: Standard PACU
--- NOTE | 2022-09-22 09:42 | MHC.SHP ---
Pre-Procedural Eval Section A Date of Service: 09/22/22 Section B Chief Complaint: Unspecified abdominal pain, Abnormal levels of oth Details of Present Illness: constipation, hx of polyps Relevant Family History (Specify if Yes): No Relevant Social History: Tobacco Use Present Medications: see Short Stay Collaborative assessment Medical History: Significant History (Anxiety Asthma Bipolar disorder Chronic abdominal pain Depression Difficulty swallowing Elevated cholesterol Fibromyalgia GERD (gastroesophageal reflux disease) HTN (hypertension) Hyperparathyroidism Leukocytosis Migraines Multinodular thyroid Osteoporosis PONV (postoperative nausea and vomiting) Pu) History of Previous Operations: Relevant previous surgery/procedure and date(s) (H/O colonoscopy H/O esophagogastroduodenoscopy History of bilateral oophorectomy History of total abdominal hysterectomy Hx of appendectomy Hx of cholecystectomy Hx of thyroidectomy S/P excision of lipoma) Allergies: Allergies Allergy/AdvReac Type Severity Reaction Status Date / Time Sulfa (Sulfonamide Allergy Intermediate HIVES Verified 09/07/22 09:49 Antibiotics) [SULFA (SULFONAMIDE ANTIBIOTICS)] aspirin [ASPIRIN] AdvReac Intermediate ABD PAIN Verified 09/07/22 09:49 morphine [MORPHINE] AdvReac Intermediate ABD PAIN Verified 09/07/22 09:49 Review of Systems Sugical H&P ROS: Negative: Constitution, Cardiovascular, Respiratory, Neurological, Psychiatric, Hem-Onc, Allergic/Immunologic, Gastrointestinal, Genitourinary, Musculoskeletal, Integumentary, Endocrine and Eyes/Ears/Nose/Throat Exam Surgical H&P Exam: Normal: HEENT, Normal: Heart, Normal: Lungs, Normal: Extremities, Normal: Abdomen, Normal: Skin and Normal: Neurological Plan Diagnosis/Plan: Unchanged I have reviewed the history and physical and performed a pertinent physical examination on my patient. No changes have occurred unless specified. Time Spent With Patient Time: Total time managing care of this patient today ____ minutes.
--- NOTE | 2022-09-22 09:50 | W.PM.OPN ---
Operative Note Operative Note Date of Service: 09/22/22 Narrative: Operative Information Procedure Description: EGD, Colonoscopy Indication: GERD, hx of colonoscopy with poor prep Anesthesia: MAC FLEXIBLE TRANSORAL UPPER GASTROINTESTINAL ENDOSCOPY AND COLONOSCOPY PROCEDURE NOTE UPPER ENDOSCOPY Consent: Indications for the procedure and potential complications of bleeding, perforation, reaction to medications and missed diagnosis were discussed with the patient and informed consent was obtained. Instrument: Olympus GIF H 190 J mid size upper endoscope Monitoring: Vital signs and clinical assessment, continuous EKG monitoring, Pulse oximetry, Carbon Dioxide monitoring and blood pressure monitoring were done throughout the procedure. Procedure: The patient was placed in the left lateral decubitis position and pre-procedure medications were administered and a bite block was placed. The endoscope was inserted into the mouth and advanced under direct vision to the third part of duodenum. A careful inspection was made as the upper endoscope was withdrawn including a retroflexed examination of the proximal stomach; Findings and interventions are described below. Findings: Larynx:normal Esophagus: GE junction at 34 cm, diaphragm hiatus at 37 cm, consistent with 3 cm sliding hiatal hernia, with non obstructive schatzki ring noted Stomach: Normal mucosa. Grade 2 flap valve on retroflexed examination of the cardia. Duodenum: Normal bulb and descending duodenum, Intervention: Biopsies as noted above COLONOSCOPY Instrument: Olympus variable stiffness ADULT scope 190L Colonoscopy Monitoring: Vital signs and clinical assessment, continuous EKG monitoring, Pulse oximetry, Carbon Dioxide monitoring and blood pressure monitoring were done throughout the procedure. Colon withdrawal time was 10 minutes. Procedure: The patient was placed in the left lateral decubitis position and pre-procedure medications were administered. After a digital rectal examination of the ano-rectum, the video colonoscope was inserted into the rectum and advanced through the colon to the cecum/TI. The colonoscope was slowly withdrawn in a retrograde panoramic fashion and the colon mucosa was carefully examined including a retroflexed view of the rectum. Findings and interventions are described below. Procedure Difficulty: easy Findings: melanosis coli noted Terminal Ileum-normal Cecum: x2 sessile polyps 8-10 mm removed with cold forceps Ascending Colon: normal Transverse Colon -normal Descending Colon:normal Sigmoid Colon: normal Rectosigmoid area: 10 mm sessile polyp removed with cold snare Rectum: Retroflexion with small internal hemorrhoids, grade I Anorectum - normal Colon preparation: [place] Bowel Preparation Scale Right colon; 2 Transverse colon: 2 Left colon; 2 (0 = Unprepared colon segment with mucosa not seen due to solid stool that cannot be cleared. 1 = Portion of mucosa of the colon segment seen, but other areas of the colon segment not well seen due to staining, residual stool and/or opaque liquid. 2 = Minor amount of residual staining, small fragments of stool and/or opaque liquid, but mucosa of colon segment seen well. 3 = Entire mucosa of colon segment seen well with no residual staining, small fragments of stool or opaque liquid) Impression and Post Procedure Diagnosis: Endoscopy Findings: hiatal hernia schatzki ring Colonoscopy Findings: polyps internal hemorrhoids Plan: Await Pathology results Repeat Colonoscopy in 5 years due to polyps or earlier if clinically indicated High fiber diet leaflet avoid straining at stool, epsom salts and sitz bath, anusol supps or cream reflux precautions Above findings were reviewed with the patient and relevant handouts were provided if indicated.
[2022-09-22 10:06] VITALS: BP 141/83; PULSE 95; RESP 16; TEMP 36.4; O2SAT 98; BMI 26.5
[2022-09-22] MEDS: Lactated Ringers 1,000 ML 100 ML IVCONT (10:08)
[2022-09-22] MEDS: Sodium Phosphate,Mono-Dibasic 133 ML ENEMA PR (10:08)
[2022-09-22 11:23] VITALS: BP 120/70; PULSE 105; RESP 16; TEMP 36.5; O2SAT 96
[2022-09-22 11:42] VITALS: BP 137/74; PULSE 93; RESP 18; TEMP 36.1; O2SAT 98
== END 2022-09-22 13:06 | disposition home or self-care (01) ==
PROVIDERS: PCP Nurse Practitioner Family; Visit Provider Internal Medicine Gastroenterology
PROC: (CPT 45385; principal; 2022-09-22 11:00)
DX: Z12.11 Encounter for screening for malignant neoplasm of colon (principal); D12.0 Benign neoplasm of cecum; K63.5 Polyp of colon; K63.89 Other specified diseases of intestine; K64.0 First degree hemorrhoids; K21.9 Gastro-esophageal reflux disease without esophagitis; R10.9 Unspecified abdominal pain; G89.29 Other chronic pain; R74.8 Abnormal levels of other serum enzymes; K22.2 Esophageal obstruction; K44.9 Diaphragmatic hernia without obstruction or gangrene; I10 Essential (primary) hypertension; J45.909 Unspecified asthma, uncomplicated; M81.0 Age-related osteoporosis without current pathological fracture; M79.7 Fibromyalgia; Z79.51 Long term (current) use of inhaled steroids; Z79.899 Other long term (current) drug therapy; Z88.2 Allergy status to sulfonamides; Z88.8 Allergy status to other drugs, medicaments and biological substances; F17.210 Nicotine dependence, cigarettes, uncomplicated
CPT/HCPCS: 45385; 45380; 43239; 88305

== ENCOUNTER 2022-11-10 10:48 | Outpatient (REF) | payer OTHER, SELFPAY ==
--- NOTE | ~2022-11-10 | CT_ITS ---
EXAMINATION: CT CHEST WITHOUT CONTRAST CLINICAL INFORMATION: Solitary pulmonary nodule. COMPARISON: Multiple priors, most recently 03/22/2021. TECHNIQUE: Multidetector volumetric CT imaging of the chest was done. Axial MIP volume rendering provided. Sagittal and coronal reformatted images were obtained. This CT examination was performed using dose optimization techniques as appropriate, variously including the following: *Automated exposure control *Adjustment of mA and/or kV according to patient size (this includes techniques or standardized protocols for targeted exams where dose is matched to indication/reason for exam; i.e. extremities or head) *Use of iterative reconstruction technique DLP: 153 mGy-cm FINDINGS: LUNGS: The 6 mm nodule with central calcification in the right middle lobe is stable dating back to 04/07/2017 exhibiting benign behavior. There is no suspicious new nodule. MEDIASTINUM: Left hemithyroidectomy. No aortic aneurysm. No pericardial effusion. CORONARY ARTERY CALCIFICATION: None visualized on this study. PLEURA: No pleural effusion. AXILLA: No lymphadenopathy. UPPER ABDOMEN: Cholecystectomy. OSSEOUS STRUCTURES: No suspicious osseous lesions. CT/CT chest wo IV con IMPRESSION: Stable 6 mm nodule with central calcification in the right middle lobe dating back to 2016. No imaging follow-up is recommended. Fleischner guidelines were followed.
[2022-11-10 16:18] LABS: Alanine Aminotransferase 32 U/L (0-31); Albumin Level 4.6 g/dL (3.5-5.0); Alkaline Phosphatase 65 U/L (39-117); Anion Gap 18 (12-20); Aspartate Amino Transferase 19 U/L (5-31); Bilirubin Total 0.2 mg/dL (0.0-1.0); Blood Urea Nitrogen 11 mg/dL (9-16); Calcium 9.4 mg/dL (8.4-10.2); Carbon Dioxide 25 mmol/L (22-29); Chloride 101 mmol/L (96-108); Estimated Glomerular Filt Rate > 60; Glucose Random 98 mg/dL (60-115); Potassium 3.5 mmol/L (3.3-5.1); Sodium 140 mmol/L (135-145); Total Protein 7.2 g/dL (6.5-8.0)
[2022-11-10 16:19] LABS: Free T4 (Free Thyroxine) 0.94 ng/dL (0.71-1.85); Thyroid Stimulating Hormone 1.85 uIU/mL (0.32-4.0); Vitamin D 25-OH Total 22.4 ng/mL (>30)
[2022-11-15 14:54] LABS: Calcium (PTHI) 9.5 mg/dL (8.6-10.4); PTHI 69 pg/mL (16-77)
[2022-11-19 04:39] LABS: N-Telopeptide 62 (see note); NTXCreaRU 101 mg/dL (20-275)
== END 2022-11-10 10:49 | disposition home or self-care (01) ==
LOC: HO.CT 10:48
PROVIDERS: Internal Medicine; PCP Hospitalist; Visit Provider Hospitalist
DX: R91.1 Solitary pulmonary nodule (principal); M81.0 Age-related osteoporosis without current pathological fracture; E04.2 Nontoxic multinodular goiter; E55.9 Vitamin D deficiency, unspecified
CPT/HCPCS: 36415; 71250; 80053; 82306; 82523; 83970; 84100; 84439; 84443

== ENCOUNTER 2022-11-25 11:17 | Outpatient (REF) | payer OTHER, SELFPAY ==
[2022-11-25 13:01] LABS: Basophils Absolute Auto 0.1 X10*3/uL (0.0-0.2); Basophils Percent Auto 1.1 % (0-2); Eosinophils Absolute Auto 0.3 X10*3/uL (0.0-0.4); Eosinophils Percent Auto 2.5 % (0-4); Hemoglobin 14.7 g/dl (12.0-16.0); Imm Gran Abs Auto 0.05 X10*3/uL (0.00-0.03); Imm Gran Pct Auto 0.4 % (0.0-0.4); Lymphocytes Absolute Auto 5.2 X10*3/uL (1.2-4.9); Lymphocytes Percent Auto 44.5 % (20-40); MANUAL DIFF FLAG SCAN; Mean Corpuscular Hemoglobin 29.5 pg (27.0-33.0); Mean Corpuscular Volume 84.2 fL (80.0-98.0); Mean Platelet Volume 8.1 fL (9.4-12.3); Monocytes Percent Auto 8.3 % (2-11); Neutrophils Absolute Auto 5.1 x10*3/uL (2.0-8.3); Neutrophils Percent Auto 43.2 % (45-73); Platelet Count 428 X10*3/uL (160-400); Red Blood Count 4.99 X10*6/uL (4.20-5.50); Red Cell Distribution Width 13.3 % (11.0-16.0); SCAN SMEAR FLAG 1; White Blood Count 11.8 X10*3/uL (4.8-10.8)
[2022-11-25 13:19] LABS: SLIDE REVIEW VERIFIED
[2022-11-25 13:19] LABS: Appearance Urine Cloudy; Color Urine Yellow; Glucose Urine UA Negative (Negative); Leukocyte Esterase Urine Negative (Negative); Nitrite Urine Negative (Negative); Specific Gravity - Urine 1.015 (1.005-1.025); Urine Blood Negative (Negative); Urine Ketones Negative (Negative); Urine Protein Negative (Neg-Trace)
[2022-11-25 13:31] LABS: Alanine Aminotransferase 42 U/L (0-31); Albumin Level 4.7 g/dL (3.5-5.0); Alkaline Phosphatase 64 U/L (39-117); Anion Gap 14 (12-20); Aspartate Amino Transferase 24 U/L (5-31); Bilirubin Total 0.4 mg/dL (0.0-1.0); Blood Urea Nitrogen 10 mg/dL (9-16); Calcium 9.8 mg/dL (8.4-10.2); Carbon Dioxide 27 mmol/L (22-29); Chloride 99 mmol/L (96-108); Estimated Glomerular Filt Rate > 60; Glucose Random 107 mg/dL (60-115); Iron 95 mcg/dL (30-160); Percent Iron Saturation 27 % (15-50); Potassium 3.3 mmol/L (3.3-5.1); Sodium 137 mmol/L (135-145); Total Iron Binding Capacity 357 mcg/dL (228-428); Total Protein 7.5 g/dL (6.5-8.0); Unsaturated Iron Binding 262 ug/dL
[2022-11-25 13:45] LABS: Ferritin 74 ng/mL (10-250); Vitamin D 25-OH Total 32.1 ng/mL (>30)
[2022-11-25 14:00] LABS: Folate > 20.0 ng/mL (> or = 4.0); Vitamin B12 339 pg/mL (200-900)
[2022-11-30 05:59] LABS: Zinc 94 mcg/dL (60-130)
[2022-11-30 15:24] LABS: Vitamin B6 19.8 ng/mL (2.1-21.7)
[2022-12-01 00:28] LABS: Vitamin A 69 mcg/dL (38-98)
[2022-12-01 00:33] LABS: Alpha-Tocopherol 17.3 mg/L (5.7-19.9); Beta-Gamma Tocopherol 1.8 mg/L (<=4.3)
[2022-12-01 06:08] LABS: Vitamin B1 21 nmol/L (8-30)
[2022-12-01 17:09] LABS: Nicotinamide 32 ng/mL; Vit B3 - Nicotinic Acid <20 ng/mL
[2022-12-01 18:43] LABS: Vitamin C 0.2 mg/dL (0.3-2.7)
[2022-12-02 01:59] LABS: Vitamin B5 (Pantothenic Acid) <40 ng/mL (<275)
[2022-12-06 12:54] LABS: Vitamin K1 589 pg/mL (130-1500)
== END 2022-11-25 11:18 | disposition home or self-care (01) ==
LOC: HO.LAB 11:17
PROVIDERS: PCP Nurse Practitioner Family; Visit Provider Internal Medicine Gastroenterology
DX: R11.2 Nausea with vomiting, unspecified (principal); E46 Unspecified protein-calorie malnutrition; Z91.018 Allergy to other foods
CPT/HCPCS: 36415; 80053; 81003; 82180; 82306; 82607; 82728; 82746; 83540; 84207; 84425; 84443; 84446; 84590; 84591; 84597; 84630; 85025; 86003; 99212

== ENCOUNTER 2022-12-09 13:20 | Outpatient (REF) | payer OTHER, SELFPAY ==
--- NOTE | ~2022-12-09 | XR_ITS ---
EXAMINATION: XR KNEE, LEFT CLINICAL INFORMATION: Pain. COMPARISON: Radiographs dated 01/08/2021. TECHNIQUE: AP and lateral views of the left knee. FINDINGS: Bony alignment and mineralization are normal. The lateral, medial and patellofemoral joint space compartments are well-maintained. There is a tiny peripheral osteophyte of the upper pole of the patella. No fracture, dislocation or joint effusion is seen. There is no foreign body. XR/XR knee LT 2V IMPRESSION: 1. No fracture, dislocation or left knee joint effusion is seen. 2. There is very mild osteoarthritic change of the left patellofemoral compartment.
== END 2022-12-09 13:21 | disposition home or self-care (01) ==
LOC: HO.XRAY 13:20
PROVIDERS: Absent Provider Internal Medicine Gastroenterology; PCP Nurse Practitioner Family; Visit Provider Nurse Practitioner Family
DX: M25.562 Pain in left knee (principal); R91.8 Other nonspecific abnormal finding of lung field; C73 Malignant neoplasm of thyroid gland; K21.9 Gastro-esophageal reflux disease without esophagitis
CPT/HCPCS: 73560; 99212

== ENCOUNTER → 2023-01-04 07:38 | Outpatient (REF) | payer OTHER, SELFPAY ==
--- NOTE | ~2023-01-04 | NM_ITS ---
EXAMINATION: RADIONUCLIDE SOLID FOOD GASTRIC EMPTYING 4-HOUR STUDY CLINICAL INFORMATION: Early satiety. COMPARISON: No previous gastric emptying study is available for comparison. TECHNIQUE: A standard meal consisting of 4 oz of Egg Beaters brand equivalent tagged with 1 mCi Tc-99m Sulfur Colloid, 8 oz water and 2 slices of toast with jelly was administered orally to the patient. Images were obtained using a dual head gamma camera in the anterior and posterior projections over of the stomach immediately post ingestion and at hourly intervals up to 4 hours post ingestion. The anterior and posterior counts at each time interval were averaged using the geometric mean and expressed as percentage of the immediate post ingestion counts. FINDINGS: There is good visualization of activity in the stomach immediately post ingestion. As the study progresses, there is only minimal visualization of small bowel activity on the initial images, and this gradually increases slightly as the study progresses, but at the end of the study most of the activity is still retained in the stomach. Retention in the stomach at each time interval was: 1 hour 100% (normal 37%-90%) 2 hours 86% (normal 30%-60%) 3 hours 66% 4 hours 60% (normal 0%-10%) NM/NM gastric emptying study IMPRESSION: Abnormal study. There is very severe abnormal retention of solid food in the stomach at 4 hours. Gastric emptying study grading per JNMT Consensus Recommendations in 2008 (https://tech.snmjournals.org/content/36/1/44) Grade 1 (mild retention): 11-20% at 4h Grade 2 (moderate retention): 21-35% at 4h Grade 3 (severe retention): 36-50% at 4h Grade 4 (very severe retention): >50% retention at 4h
[2023-01-04 08:05] LABS: Basophils Absolute Auto 0.1 X10*3/uL (0.0-0.2); Basophils Percent Auto 0.8 % (0-2); Eosinophils Absolute Auto 0.3 X10*3/uL (0.0-0.4); Eosinophils Percent Auto 2.5 % (0-4); Hematocrit 40.3 % (37.0-47.0); Hemoglobin 13.7 g/dl (12.0-16.0); Imm Gran Abs Auto 0.06 X10*3/uL (0.00-0.03); Imm Gran Pct Auto 0.5 % (0.0-0.4); Lymphocytes Absolute Auto 5.5 X10*3/uL (1.2-4.9); Lymphocytes Percent Auto 45.7 % (20-40); MANUAL DIFF FLAG SCAN; Mean Corpuscular Hemoglobin 29.3 pg (27.0-33.0); Mean Corpuscular Volume 86.1 fL (80.0-98.0); Mean Platelet Volume 8.1 fL (9.4-12.3); Monocytes Absolute Auto 0.9 X10*3/uL (0.1-1.2); Monocytes Percent Auto 7.4 % (2-11); Neutrophils Absolute Auto 5.2 x10*3/uL (2.0-8.3); Neutrophils Percent Auto 43.1 % (45-73); Platelet Count 429 X10*3/uL (160-400); Red Blood Count 4.68 X10*6/uL (4.20-5.50); Red Cell Distribution Width 13.5 % (11.0-16.0); SCAN SMEAR FLAG 1; White Blood Count 12.1 X10*3/uL (4.8-10.8)
[2023-01-04 08:22] LABS: SLIDE REVIEW VERIFIED
[2023-01-04 09:26] LABS: Appearance Urine Clear; Color Urine Yellow; Glucose Urine UA Negative (Negative); Leukocyte Esterase Urine Negative (Negative); Nitrite Urine Negative (Negative); Urine Blood Negative (Negative); Urine Ketones Negative (Negative); Urine Protein Negative (Neg-Trace)
== END ==
LOC: HO.NUCMED 07:38
PROVIDERS: Absent Provider Nurse Practitioner Family; PCP Nurse Practitioner Family; Visit Provider Internal Medicine Gastroenterology
DX: D72.829 Elevated white blood cell count, unspecified (principal); R68.81 Early satiety
CPT/HCPCS: 36415; 78264; 81003; 85025; A9541

== ENCOUNTER → 2023-01-24 14:51 | Outpatient (BNVA) | payer OTHER, SELFPAY | PROVIDERS: PCP Nurse Practitioner Family; Visit Provider Nurse Practitioner Family ==

== ENCOUNTER → 2023-02-22 07:32 | Outpatient (BNVA) | payer OTHER, SELFPAY | PROVIDERS: PCP Nurse Practitioner Family; Visit Provider Internal Medicine Rheumatology | DX: M79.7 Fibromyalgia (principal); M17.12 Unilateral primary osteoarthritis, left knee | CPT/HCPCS: 99212 ==

== ENCOUNTER → 2023-03-01 09:27 | Outpatient (BNVA) | payer OTHER, SELFPAY | PROVIDERS: PCP Nurse Practitioner Family; Visit Provider Internal Medicine ==

== ENCOUNTER 2023-03-20 13:17 | Outpatient (REF) | payer OTHER, SELFPAY ==
--- NOTE | ~2023-03-20 | US_ITS ---
EXAMINATION: US THYROID CLINICAL INFORMATION: Personal history of malignant neoplasm of thyroid. COMPARISON: Ultrasound thyroid 04/18/2022 and 05/27/2021. CT soft tissue neck with contrast 10/09/2018. TECHNIQUE: Linear transducer grayscale and color Doppler examination with attention to the region of the thyroid. FINDINGS: SIZE: Measurements of the solitary right thyroid lobe and nodules are given in sagittal, anteroposterior and transverse dimensions respectively. Right Thyroid Lobe: 5.3 x 2.6 x 1.9 cm, volume 13.7 mL. Previously 5.2 x 2.3 x 2.1 cm, volume 13.1 mL. Parenchyma: The gland echotexture is homogeneous. Thyroid vascularity is normal. Left Thyroid Lobe: Surgically absent. Isthmus: 0.4 cm in maximum AP dimension. Previously 0.3 cm. Estimated total number of nodules greater than or equal to 1 cm: 0. Hand Carver nodules are described as follows: 1. Location: Right mid. Size: 0.8 x 0.5 x 0.7 cm, volume 0.1 mL. Previously: 0.8 x 0.8 x 0.5 cm, volume 0.1 mL. Nodule characteristics: Composition: Solid (2). Echogenicity: Isoechoic (1). Shape: Not taller than wide (0). Margins: Smooth (0). Echogenic Foci: Comet-tail artifacts (0). ACR TI-RADS total points: 3 Previous: 4 ACR TI-RADS category: 3 Previous: 4 2. Location: Right inferior. Size: 0.3 x 0.3 x 0.4 cm, volume 0.02 mL. Previously: 0.4 x 0.4 x 0.3 cm, volume 0.02 mL. Nodule characteristics: Composition: Cystic(0). ACR TI-RADS total points: 0 Previous: 0 ACR TI-RADS category: 1 Previous: 1 3. Location: Right inferior. Size: 0.2 x 0.3 x 0.4 cm, volume 0.01 mL. Previously: 0.3 x 0.3 x 0.2 cm, volume 0.01 mL. Nodule characteristics: Composition: Mixed cystic and solid (1). Echogenicity: Cannot be determined (1). Shape: Not taller than wide (0). Margins: Smooth (0). Echogenic Foci: None (0). ACR TI-RADS total points: 2 Previous: 0 ACR TI-RADS category: 2 Previous: 1 NODES: No lymphadenopathy is seen in the tissue surrounding the thyroid gland. US/US thyroid IMPRESSION: The left thyroid lobe is surgically absent. Right thyroid lobe remains enlarged. Redemonstration of multiple subcentimeter thyroid nodules, largest right mid pole 0.8 cm TR4 is stable in size. ACR TI-RADS RECOMMENDATION REFERENCE: Ultrasound-guided fine-needle aspiration, followup ultrasound, no further follow up. * TR1 (0 point) and TR2 (2 points): No FNA or follow up. * TR3 (3 points): FNA if more than or equal to 2.5 cm in maximum dimension, followup ultrasound in 1, 3 and 5 years if 1.5 to 2.4 cm in maximum dimension. * TR4 (4-6 points): FNA if more than or equal to 1.5 cm in maximum dimension, followup ultrasound in 1, 2, 3 and 5 years if 1 to 1.4 cm in maximum dimension. * TR5 (more than or equal to 7 points): FNA if more than or equal to 1 cm in maximum dimension, followup ultrasound every year for 5 years if 0.5 to 0.9 cm in maximum dimension. * TR3, TR4 or TR5 nodules that are below the size threshold for followup receive no follow up.
[2023-03-20 14:00] LABS: Basophils Absolute Auto 0.1 X10*3/uL (0.0-0.2); Basophils Percent Auto 0.9 % (0-2); Eosinophils Absolute Auto 0.4 X10*3/uL (0.0-0.4); Eosinophils Percent Auto 3.1 % (0-4); Hematocrit 42.8 % (37.0-47.0); Hemoglobin 14.7 g/dl (12.0-16.0); Imm Gran Abs Auto 0.05 X10*3/uL (0.00-0.03); Imm Gran Pct Auto 0.4 % (0.0-0.4); Lymphocytes Absolute Auto 4.2 X10*3/uL (1.2-4.9); Lymphocytes Percent Auto 36.9 % (20-40); MANUAL DIFF FLAG SCAN; Mean Corpuscular HGB Conc 34.3 g/dl (31.0-35.0); Mean Corpuscular Hemoglobin 29.9 pg (27.0-33.0); Mean Platelet Volume 8.6 fL (9.4-12.3); Monocytes Absolute Auto 0.9 X10*3/uL (0.1-1.2); Monocytes Percent Auto 7.7 % (2-11); Neutrophils Absolute Auto 5.7 x10*3/uL (2.0-8.3); Platelet Count 401 X10*3/uL (160-400); Red Blood Count 4.92 X10*6/uL (4.20-5.50); Red Cell Distribution Width 13.7 % (11.0-16.0); SCAN SMEAR FLAG 1; White Blood Count 11.2 X10*3/uL (4.8-10.8)
[2023-03-20 14:38] LABS: SLIDE REVIEW VERIFIED
[2023-03-20 14:45] LABS: Alanine Aminotransferase 52 U/L (0-31); Albumin Level 4.3 g/dL (3.5-5.0); Alkaline Phosphatase 55 U/L (39-117); Anion Gap 13 (12-20); Aspartate Amino Transferase 33 U/L (5-31); Bilirubin Total 0.5 mg/dL (0.0-1.0); Blood Urea Nitrogen 10 mg/dL (9-16); Calcium 10.1 mg/dL (8.4-10.2); Carbon Dioxide 26 mmol/L (22-29); Chloride 104 mmol/L (96-108); Estimated Glomerular Filt Rate > 60; Glucose Random 106 mg/dL (60-115); Phosphorus 3.4 mg/dL (2.7-4.5); Potassium 3.3 mmol/L (3.3-5.1); Sodium 140 mmol/L (135-145); Total Protein 7.1 g/dL (6.5-8.0)
[2023-03-20 14:56] LABS: Thyroid Stimulating Hormone 1.12 uIU/mL (0.32-4.0)
[2023-03-20 15:35] LABS: Free T4 (Free Thyroxine) 1.03 ng/dL (0.71-1.85); Vitamin D 25-OH Total 32.5 ng/mL (>30)
[2023-03-20 18:16] LABS: Appearance Urine Clear; Color Urine Yellow; Glucose Urine UA Negative (Negative); Leukocyte Esterase Urine Negative (Negative); Nitrite Urine Negative (Negative); Urine Blood Negative (Negative); Urine Ketones Negative (Negative); Urine Protein Negative (Neg-Trace)
[2023-03-22 23:33] LABS: Calcium (PTHI) 9.8 mg/dL (8.6-10.4); PTHI 34 pg/mL (16-77)
[2023-03-27 20:34] LABS: N-Telopeptide 24 (see note); NTXCreaRU 75 mg/dL (20-275)
== END 2023-03-20 13:18 | disposition home or self-care (01) ==
LOC: HO.US 13:17
PROVIDERS: PCP Nurse Practitioner Family; Visit Provider Internal Medicine
DX: E04.2 Nontoxic multinodular goiter (principal); E55.9 Vitamin D deficiency, unspecified; M81.0 Age-related osteoporosis without current pathological fracture; D72.829 Elevated white blood cell count, unspecified; Z85.850 Personal history of malignant neoplasm of thyroid
CPT/HCPCS: 36415; 76536; 80053; 81003; 82306; 82523; 83970; 84100; 84439; 84443; 85025; 87086

== ENCOUNTER 2023-04-07 08:44 | Outpatient (AMB) | payer OTHER, SELFPAY ==
[2023-04-07 08:48] VITALS: BP 136/80; BMI 28.3
--- NOTE | 2023-04-07 08:48 | A.OFFVIS_ITS ---
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 Scribed for CALVIN Walton by Debby Conti pediatrician/medical doctor, on 04/07/2023 at 9:15 am EST Windows Phone Developer Required: Yes Windows Phone Developer Language: [place] Cutter Name: Diana RAMIREZ Information Interpreted: non-clinical & clinical Chemical Dependency Therapist: Chemical Dependency Therapist Present (Diana RAMIREZ) Accompanied by: Self / Same As Patient Allergies Sulfa (Sulfonamide Antibiotics) [SULFA (SULFONAMIDE ANTIBIOTICS)] Allergy (Intermediate, Verified 04/07/23 08:55) HIVES aspirin [ASPIRIN] Adverse Reaction (Intermediate, Verified 04/07/23 08:55) ABD PAIN morphine [MORPHINE] Adverse Reaction (Intermediate, Verified 04/07/23 08:55) ABD PAIN Post menopausal: Yes HPI HPI Comments History of Present Illness Details She is a postmenopausal woman presenting for annual exam. She attempts to eat a healthy diet including Calcium and Vitamin D and stays active. Not currently sexually active for over 5 years. She is inquiring about a refill of Premarin due to dryness. Last rx was 5 years ago. Admits some itching and irritation possibly associated with panty liner. Last pap smear 2018. Last mammogram 09/15/21. [facility] Medical History Allergies Anxiety Asthma Bipolar disorder Chronic abdominal pain Depression Difficulty swallowing Elevated cholesterol Fibromyalgia GERD (gastroesophageal reflux disease) HTN (hypertension) Hyperparathyroidism Leukocytosis Migraines Multinodular thyroid Osteoporosis PONV (postoperative nausea and vomiting) Pulmonary nodule Renal calculi Thrombocytosis Thyroid cancer Vitamin D deficiency Surgical History H/O colonoscopy H/O esophagogastroduodenoscopy History of bilateral oophorectomy History of total abdominal hysterectomy Hx of appendectomy Hx of cholecystectomy Hx of thyroidectomy S/P excision of lipoma Family History Father Diabetes mellitus Skin cancer Prostate cancer Mother HTN (hypertension) High cholesterol Mental health disorder Maternal Grandfather Myocardial infarction Maternal Grandmother No problems noted. Paternal Grandfather No problems noted. Paternal Grandmother Breast cancer Sister Mental health disorder Social History Household Members: None Housing: Apartment Are you a primary healthcare consulting manager to a significant other at home: No Do you presently have visiting nurse or other home services: Yes ([employer]) Alcohol intake: never Patient Tobacco Use Status: Current everyday Tobacco user Tobacco use type: Cigarette Cigarettes Per Day: 5 Years Smoked: 20 e-Cigarette/Vaping Use: Never Used Second Hand Smoke Exposure: No Advance Directives Date on File: 10/11/16 service: No Current occupational status: disabled Sexual orientation: Straight/Heterosexual Gender identity: Female Cognitive needs: No Hearing needs: No Vision needs: No Female Reproductive History Menstrual Menopause type: surgical Total pregnancies: 0 Review of Systems Const All systems reviewed & are unremarkable except as noted in HPI and below Reports vaginal pruritus Physical Exam Vital Signs: Last Vital Signs BP 136/80 04/07/23 08:48 BMI result Body Mass Index 28.3 Const General: cooperative, healthy appearing, no acute distress, well developed and alert Orientation/consciousness: patient oriented x3 HEENT Head: Yes normal to inspection Eyes General: appearance normal, both eyes and all related structures Neck Neck: Yes normal visual inspection Thyroid: Thyroid normal Chest Chest palpation & inspection: normal inspection of the chest Breast/axilla inspection: normal inspection of the breasts (symmetrical) and Other (no: puckering, dimpling, peau de orange, retraction, discharge or lesions) Resp Effort & Inspection: normal respiratory effort GI Inspection: Yes normal to inspection Palpation (GI): Soft to palpation Rectal Exam - Female: deferred General: Yes bladder normal to palpation External Female Exam: normal external appearance, normal appearance of the urethra and other (shaved) Speculum Exam - Vagina: normal appearance of the vagina, normal palpation and abnormal vaginal discharge (small amount of white) Speculum Exam - Cervix: Cervix absent (vag cuff. no nodules or lesions) Bimanual exam- vagina & uterus: normal bimanual exam, normal palpation, bladder normal to palpation and uterus absent Bimanual Exam- Adnexa, other: normal adnexae and no masses Skin General skin exam: no rashes or lesions noted Neuro General: patient oriented x3 Cognition (Neuro): normal cognition Extrem General: Yes normal to inspection Psych Attitude: cooperative Thought process: Normal thought process present Assessment & Plan Assessment & Plan (1) Encounter for well woman exam: Code(s): Z01.419 - Encounter for gynecological examination (general) (routine) without abnormal findings Plan: Discussed: Current recommendations for pap smears per ASCCP guidelines. Breast awareness and periodic self breast exams. Encouraged yearly mammograms. Maintaining a healthy lifestyle including a well balanced diet including Calcium and Vitamin D and routine exercise. All of her questions and concerns were addressed to the best of my ability. RTO in one year for AG. (2) Vulvar itching: Code(s): L29.2 - Pruritus vulvae Plan: Clean with water only, no soaps to the area, dry well and wear cotton underwear.? Avoid shaving/waxing the area. Contact office if sx do not resolve. (3) Vaginal dryness, menopausal: Code(s): N95.1 - Menopausal and female climacteric states Plan: Counseled on risks of HRT. No indication for HRT at this time. If she becomes intimate, she can try lubricants. RTO prn. Orders: Orders Bacterial Vaginosis Panel Today N89.8 - Other specified noninflammatory disorders of vagina Coding Level of Care Code New Pt Prev Care 40-64y(01130) Diagnoses Encounter for well woman exam Z01.419 Vulvar itching L29.2 Vaginal dryness, menopausal N95.1
== END 2023-04-07 09:31 | disposition home or self-care (01) ==
LOC: HO.HWS 08:44
PROVIDERS: PCP Nurse Practitioner Family; Visit Provider Advanced Practice Midwife
DX: Z01.419 Encounter for gynecological examination (general) (routine) without abnormal findings (principal); L29.2 Pruritus vulvae; N95.1 Menopausal and female climacteric states
CPT/HCPCS: 99386

== ENCOUNTER 2023-04-07 09:39 | Outpatient (REF) | payer OTHER, SELFPAY ==
[2023-04-08 12:50] LABS: BV Int Neg Control Negative (Negative); BV Int Pos Control Positive (Positive)
== END 2023-04-07 09:40 | disposition home or self-care (01) ==
LOC: HO.LNP 09:39
PROVIDERS: Visit Provider Advanced Practice Midwife
DX: N64.4 Mastodynia (principal); N89.8 Other specified noninflammatory disorders of vagina
CPT/HCPCS: 87480; 87510; 87660

== ENCOUNTER 2023-04-07 10:16 | Outpatient (REF) | payer OTHER, SELFPAY ==
--- NOTE | ~2023-04-07 | MM_ITS ---
EXAMINATION: MM DIAGNOSTIC DIGITAL BREAST TOMOSYNTHESIS, BILATERAL AND RIGHT BREAST ULTRASOUND CLINICAL INFORMATION: Patient presents for a right diagnostic mammogram for medially located right breast pain and annual screening mammography of the left breast. The lifetime risk of breast cancer based on the Tyrer-Cuzick Model is 14%. COMPARISON: Mammography: This study is compared to prior mammograms dating back to 2018. MAMMOGRAM: TECHNIQUE: Digital breast tomosynthesis is performed in both the craniocaudal and mediolateral oblique views along with computer-aided detection (CAD). Synthesized 2D images are generated from the tomosynthesis. FINDINGS: There are scattered areas of fibroglandular density (ACR BI-RADS breast composition Category b). There are no significant masses, abnormal calcifications, or other abnormalities. There are unchanged, bilateral, benign punctate calcifications. ULTRASOUND: Sonography in the area of the patient's pain, 1:00 8 cm from the right nipple, was performed. There is no focal abnormality in this location. Clinical follow-up for the patient's pain is advised. Results are provided to the patient at time of visit by the technologist. MM/MM tomosynthesis diagnostic BI IMPRESSION: Benign mammographic findings. No mammographic or sonographic correlates with the area patient's pain in the right breast. Clinical follow-up for right breast pain is advised. ASSESSMENT: BI-RADS BI-RADS 2 - Benign Findings RECOMMENDATION: 1 year F/U this recommendation is for line the next routine annual screening mammogram is due. Clinical follow-up for the patient's right breast pain is advised. This patient's information was entered into a reminder system with a target due date for their next mammogram.
== END 2023-04-07 10:17 | disposition home or self-care (01) ==
LOC: HO.MAMMO 10:16
PROVIDERS: PCP Nurse Practitioner Family; Visit Provider Nurse Practitioner Family
DX: N64.4 Mastodynia (principal)
CPT/HCPCS: 76642; 77062; 77066

== ENCOUNTER → 2023-04-07 12:00 | Outpatient (BNV) | payer OTHER, SELFPAY | PROVIDERS: PCP Nurse Practitioner Family; Visit Provider Radiology Diagnostic Radiology | DX: N64.4 Mastodynia (principal) | CPT/HCPCS: 76642; 77062; 77066 ==

== ENCOUNTER 2023-04-11 07:45 | Outpatient (AMB) | payer OTHER, SELFPAY ==
--- NOTE | 2023-04-11 07:24 | A.OFFPC_ITS ---
Intake Visit Reasons: 3m follow up anxiety/depression Allergies Sulfa (Sulfonamide Antibiotics) [SULFA (SULFONAMIDE ANTIBIOTICS)] Allergy (Intermediate, Verified 04/07/23 08:55) HIVES aspirin [ASPIRIN] Adverse Reaction (Intermediate, Verified 04/07/23 08:55) ABD PAIN morphine [MORPHINE] Adverse Reaction (Intermediate, Verified 04/07/23 08:55) ABD PAIN Tobacco use date assessed: 05/18/21 HPI 3m follow up anxiety/depression HPI Details Pt c/o ongoing body pains due to fibromyalgia. She is currently seeing rheumatology but would like a different provider. Will refer. Denies fever, chills, and dizziness. [facility] Medical History (Updated 04/11/23 @ 07:29 by JAVY James) Allergies Anxiety Asthma Bipolar disorder Breast pain, right Chronic abdominal pain Depression Difficulty swallowing Elevated cholesterol Fibromyalgia GERD (gastroesophageal reflux disease) HTN (hypertension) Hyperparathyroidism Leukocytosis Migraines Multinodular thyroid Osteoporosis PONV (postoperative nausea and vomiting) Pulmonary nodule Renal calculi Thrombocytosis Thyroid cancer Vitamin D deficiency Surgical History H/O colonoscopy H/O esophagogastroduodenoscopy History of bilateral oophorectomy History of total abdominal hysterectomy Hx of appendectomy Hx of cholecystectomy Hx of thyroidectomy S/P excision of lipoma Family History Father Diabetes mellitus Skin cancer Prostate cancer Mother HTN (hypertension) High cholesterol Mental health disorder Maternal Grandfather Myocardial infarction Maternal Grandmother No problems noted. Paternal Grandfather No problems noted. Paternal Grandmother Breast cancer Sister Mental health disorder Social History Household Members: None Housing: Apartment Are you a primary pet care assistant to a significant other at home: No Do you presently have visiting nurse or other home services: Yes ([employer]) Alcohol intake: never Patient Tobacco Use Status: Current everyday Tobacco user Tobacco use type: Cigarette Cigarettes Per Day: 5 Years Smoked: 20 Packs per year/per ci.00 e-Cigarette/Vaping Use: Never Used Second Hand Smoke Exposure: No Advance Directives Date on File: 10/11/16 service: No Current occupational status: disabled Sexual orientation: Straight/Heterosexual Gender identity: Female Cognitive needs: No Hearing needs: No Vision needs: No Questionnaire Thrive Questionnaire Date Thrive assessed: 05/18/21 Review of Systems Const Reports as per HPI Physical exam (Primary Care) Tobacco/Smoking Status: Tobacco use Status Tobacco use date assessed 05/18/21 04/11/23 07:25 Patient Tobacco Use Status Current everyday Tobacco 04/11/23 07:25 Tobacco use type Cigarette 04/11/23 07:25 e-Cigarette/Vaping Use Never Used 04/11/23 07:25 Thrive Assessment: Date of Thrive Assessment Date Thrive assessed 05/18/21 04/11/23 07:25 Const General: cooperative Orientation/consciousness: patient oriented x3 Neuro General: patient oriented x3 Psych Appearance: grossly normal Mental Status: mental status grossly normal Speech and movement: Clear speech present Affect: normal affect Attitude: cooperative Thought process: Normal thought process present Thought content: Normal thought content present Insight: Good insight present (Psych) Judgement: Good judgement present (Psych) Telehealth Telehealth Location of provider rendering services: practice address Location of patient: address on file Patient Identification confirmed using: Name, : Yes Telehealth method: video Patient verbally consented to treatment: Yes Patient verbally consented to billing insurance company: Yes Patient informed of any privacy concerns related to visit: Yes Minutes spent on Phone/Video with Pt.: 10 Assessment and Plan Assessment & Plan (1) ROSE positive: Comment: 2020: 1:160, anti-DNA, ALBERT,C3 C4, SS-A,SS-B all negative Code(s): R76.8 - Other specified abnormal immunological findings in serum Plan: Referred to rheumatology (2) Fibromyalgia: Code(s): M79.7 - Fibromyalgia Plan: Referred to rheumatology Plan The patient agreed to the use of a medical operations supervisor for this encounter. Scribed for JAVY Yuan by thelma Julio scribe, on 04/11/2023 at 07:25 EST. Orders: Referrals Rheumatology Referral M79.7 - Fibromyalgia, R52 - Pain, unspecified, R76.8 - Other specified abnormal immunological findings in serum Coding Level of Care Code Tele Est Pt Level 3 (06419) Diagnoses ROSE positive R76.8 Fibromyalgia M79.7
== END 2023-04-11 08:08 | disposition home or self-care (01) ==
PROVIDERS: PCP Nurse Practitioner Family; Visit Provider Nurse Practitioner Family
DX: R76.8 Other specified abnormal immunological findings in serum (principal); M79.7 Fibromyalgia
CPT/HCPCS: 99213

== ENCOUNTER 2023-04-12 09:15 | Outpatient (AMB) | payer OTHER, SELFPAY ==
--- NOTE | 2023-04-12 09:54 | A.OFFVIS_ITS ---
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 Emgality 120mg/ml X2 injection sample provided. Lot #[id number] and Exp 08/15/24. Education regarding injection and side effects provided. Emgality 120mg/ml injection administered on LLQ and RLQ. Pt tolerated and demonstrated the injection well. COUNT INCLUDES THE [facility] Medical History (Updated 04/12/23 @ 10:40 by Aaron Rios CNP) Allergies Anxiety Asthma Bipolar disorder Breast pain, right Chronic abdominal pain Depression Difficulty swallowing Elevated cholesterol Fibromyalgia GERD (gastroesophageal reflux disease) HTN (hypertension) Hyperparathyroidism Leukocytosis Migraines Multinodular thyroid Osteoporosis PONV (postoperative nausea and vomiting) Pulmonary nodule Renal calculi Thrombocytosis Thyroid cancer Vitamin D deficiency Surgical History H/O colonoscopy H/O esophagogastroduodenoscopy History of bilateral oophorectomy History of total abdominal hysterectomy Hx of appendectomy Hx of cholecystectomy Hx of thyroidectomy S/P excision of lipoma Family History Father Diabetes mellitus Skin cancer Prostate cancer Mother HTN (hypertension) High cholesterol Mental health disorder Maternal Grandfather Myocardial infarction Maternal Grandmother No problems noted. Paternal Grandfather No problems noted. 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) Alcohol intake: never Patient Tobacco Use Status: Current everyday Tobacco user Tobacco use type: Cigarette Cigarettes Per Day: 5 Years Smoked: 20 e-Cigarette/Vaping Use: Never Used Second Hand Smoke Exposure: No Advance Directives Date on File: 10/11/16 service: No Current occupational status: disabled Sexual orientation: Straight/Heterosexual Gender identity: Female Cognitive needs: No Hearing needs: No Vision needs: No Review of Systems Const All systems reviewed & are unremarkable except as noted in HPI and below Physical Exam Vital Signs: Last Vital Signs Pulse 91 04/12/23 09:58 BP 120/68 04/12/23 09:58 Pulse Ox 95 04/12/23 09:58 Oxygen Delivery Method Room Air 04/12/23 09:58 Const General: cooperative and no acute distress Orientation/consciousness: patient oriented x3 Resp Effort & Inspection: normal respiratory effort and able to speak in complete sentences Neuro General: patient oriented x3 Cognition (Neuro): normal cognition Assessment & Plan Assessment & Plan (1) Migraines: Code(s): G43.909 - Migraine, unspecified, not intractable, without status migrainosus Plan Continue to have monthly Emgality injection. Advised patient to monitor the migraine frequency and intensity. Coding Level of Care Code Est Pt Level 1 (49789) Diagnoses Migraines G43.909
[2023-04-12 09:58] VITALS: BP 120/68; PULSE 91; O2SAT 95
== END 2023-04-12 10:23 | disposition home or self-care (01) ==
PROVIDERS: PCP Nurse Practitioner Family; Visit Provider Nurse Practitioner Family
DX: G43.909 Migraine, unspecified, not intractable, without status migrainosus (principal)

== ENCOUNTER → 2023-04-12 09:15 | Outpatient (BNVA) | payer OTHER, SELFPAY | PROVIDERS: PCP Nurse Practitioner Family; Visit Provider Nurse Practitioner Family | DX: G43.909 Migraine, unspecified, not intractable, without status migrainosus (principal) | CPT/HCPCS: 99211 ==

== ENCOUNTER 2023-05-22 13:04 | Outpatient (AMB) | payer OTHER, SELFPAY ==
[2023-05-22 13:09] VITALS: BP 136/88; PULSE 92; O2SAT 97
--- NOTE | 2023-05-22 13:09 | MHC.PC.OV ---
Vital Signs 05/22/23 13:09 Height 5 ft 3 in Weight 169 lb 2 oz BMI 30.0 BP 136/88 Blood Pressure Location Lt brachial Position Sitting Pulse 92 Pulse Source Pulse Oximeter Pulse Oximetry (%) 97 Oxygen Delivery Method Room Air Intake Visit Reasons: Physical exam Allergies Sulfa (Sulfonamide Antibiotics) [SULFA (SULFONAMIDE ANTIBIOTICS)] Allergy (Intermediate, Verified 05/22/23 13:13) HIVES aspirin [ASPIRIN] Adverse Reaction (Intermediate, Verified 05/22/23 13:13) ABD PAIN morphine [MORPHINE] Adverse Reaction (Intermediate, Verified 05/22/23 13:13) ABD PAIN almond Allergy (Severe, Uncoded 05/22/23 13:13) Stomack pain Lactose intollerance Allergy (Severe, Uncoded 05/22/23 13:13) Stomach pain, nausceau Medication List - Last Reconciled 05/22/23 by Raymundo Mcdonald, FAMILY RESOURCE COORDINATOR- albuterol sulfate 90 mcg/actuation (ProAir HFA) 2 puffs PO Q6H PRN albuterol sulfate 2.5 mg (3 mL) inhalation Q6H PRN amitriptyline 50 mg (2 x 25 mg) PO BEDTIME 30 days amlodipine 5 mg PO DAILY azelastine 1 spray intranasal BID chlorthalidone 25 mg PO DAILY cholecalciferol (vitamin D3) (Vitamin D3) 25 mcg PO DAILY diclofenac sodium 50 mg PO BID PRN diclofenac sodium 1% 2 grams topical BID PRN ezetimibe 10 mg PO DAILY 90 days famotidine (Pepcid) 40 mg PO BEDTIME Flovent HFA 110 mcg/actuation (fluticasone propionate) 1 puff inhalation BID NS fluvoxamine 100 mg PO BEDTIME gabapentin one twice a day and two at night galcanezumab-gnlm (Emgality Pen) 120 mg subcut ONCE 30 days hydrocortisone valerate 0.2% 1 appl topical BID PRN 30 days hydroxyzine pamoate 75 mg PO TID PRN linaclotide 145 mcg PO DAILY loratadine 10 mg PO DAILY magnesium oxide 400 mg PO DAILY 30 days menthol-zinc oxide 0.44-20.6 % (Calmoseptine) 1 appl topical QID PRN menthol-zinc oxide 0.44-20.6 % (Calmoseptine) 1 appl topical QID PRN montelukast 10 mg PO BEDTIME omega-3 acid ethyl esters 1 cap PO BID 90 days omeprazole 20 mg PO DAILY ondansetron 8 mg PO Q8H PRN 14 days polyethylene glycol 3350 (Gavilax) 17 grams PO DAILY potassium chloride ER 40 mEq (4 x 10 mEq) PO DAILY 90 days prazosin 2 mg PO BEDTIME rizatriptan 5 - 10 mg (0.5 - 1 x 10 mg) PO Q2H PRN 21 days sennosides (Senna Laxative) 17.2 mg (2 x 8.6 mg) PO BEDTIME PRN sumatriptan succinate 50 - 100 mg (0.5 - 1 x 100 mg) PO Q2H PRN 30 days tizanidine 4 mg PO BID PRN 14 days Tobacco use date assessed: 05/22/23 Dental Screening Dental Screen Date: 05/22/23 Did you have a dental visit in the last 12 months?: Yes Did you have a dental problem in the last 6 months where you did not have access to dental care?: No Was dental information given to patient?: Patient has dentist HPI Physical exam HPI Details Pt is here for a PE. Will order labs. Colon screen is up to date. Mammo is up to date. 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 Pt follows up with pulmonary, GI, and rheumatology. Pt reports tenderness to her upper body (especially upper torso) with very faint touch. ? fibromyalgia component. Will check on status of rheumatology. [facility] Medical History Breast pain, right Allergies Migraines Renal calculi Bipolar disorder Chronic abdominal pain Osteoporosis Hyperparathyroidism Multinodular thyroid Depression Fibromyalgia Thrombocytosis Leukocytosis GERD (gastroesophageal reflux disease) Thyroid cancer PONV (postoperative nausea and vomiting) Elevated cholesterol Difficulty swallowing Vitamin D deficiency Anxiety Pulmonary nodule Asthma HTN (hypertension) Surgical History Hx of thyroidectomy H/O esophagogastroduodenoscopy H/O colonoscopy History of bilateral oophorectomy Hx of cholecystectomy S/P excision of lipoma History of total abdominal hysterectomy Hx of appendectomy Family History Father Diabetes mellitus Skin cancer Prostate cancer Mother HTN (hypertension) High cholesterol Mental health disorder Maternal Grandfather Myocardial infarction Maternal Grandmother No problems noted. Paternal Grandfather No problems noted. 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) Alcohol intake: never Patient Tobacco Use Status: Current everyday Tobacco user Tobacco use type: Cigarette Cigarettes Per Day: 5 Years Smoked: 20 e-Cigarette/Vaping Use: Never Used Second Hand Smoke Exposure: No Advance Directives Date on File: 10/11/16 service: No Current occupational status: disabled Sexual orientation: Straight/Heterosexual Gender identity: Female Cognitive needs: No Hearing needs: No Vision needs: No Questionnaire Thrive Questionnaire Date Thrive assessed: 05/18/21 Review of Systems Const Denies chills and Denies fever(s) Eyes Denies blurry vision ENT Denies vertigo, Denies dizziness and Denies sore throat Card Denies chest pain at rest, Denies chest pain with activity, Denies diaphoresis, Denies dyspnea and Denies dyspnea on exertion Resp Denies cough, Denies dyspnea, Denies dyspnea on exertion and Denies wheezing GI Denies abdominal pain, Denies melena, Denies hematochezia, Denies constipation, Denies diarrhea and Denies loose stools Denies hematuria Musc Denies numbness and Denies tingling Skin/Breast Denies lesions Neuro Denies vertigo, Denies dizziness, Denies numbness and Denies tingling Psych Denies anxiety, Denies depression, Denies homicidal ideation, Denies suicidal ideation and Denies other (substance abuse) Aller/Immun Denies wheezing Physical exam (Primary Care) Vital Signs: Last Vital Signs Pulse 92 05/22/23 13:09 BP 136/88 05/22/23 13:09 Pulse Ox 97 05/22/23 13:09 Oxygen Delivery Method Room Air 05/22/23 13:09 BMI result Body Mass Index 30.0 Tobacco/Smoking Status: Tobacco use Status Tobacco use date assessed 05/22/23 05/22/23 13:20 Patient Tobacco Use Status Current everyday Tobacco 05/22/23 13:20 Tobacco use type Cigarette 05/22/23 13:20 e-Cigarette/Vaping Use Never Used 05/22/23 13:20 Thrive Assessment: Date of Thrive Assessment Date Thrive assessed 05/18/21 05/22/23 13:20 Const General: cooperative Nutritional Appearance: well nourished Orientation/consciousness: patient oriented x3 HENMT Head: Yes normal to inspection, Yes normocephalic and Yes atraumatic Ears: TM's normal bilaterally Eyes General: appearance normal, both eyes and all related structures Alignment and Position: alignment normal and position normal Neck Neck: Yes normal visual inspection and Yes no lymphadenopathy Thyroid: Thyroid normal Resp Effort & Inspection: normal respiratory effort Auscultation: clear to auscultation bilaterally Cardio Rate: regular rate Rhythm: regular rhythm Heart sounds: S1 normal heart sound present, S2 normal heart sound present and no murmurs GI Palpation (GI): Soft to palpation and nontender Auscultation: normal bowel sounds Skin Other: with faintest touch of upper body (especially upper torso) tenderness noted, no erythema Rashes: no rashes Neuro General: patient oriented x3, moves all extremities, no focal motor deficits and deep tendon reflexes 2+ bilaterally Romberg Test: Negative Psych Appearance: grossly normal Mental Status: mental status grossly normal Speech and movement: Normal speech and movement present Affect: normal affect Attitude: cooperative Thought process: Normal thought process present Thought content: Normal thought content present Insight: Good insight present (Psych) Judgement: Good judgement present (Psych) Assessment and Plan Assessment & Plan (1) Physical exam: Code(s): Z00.00 - Encounter for general adult medical examination without abnormal findings Plan: Labs ordered (2) Vitamin D deficiency: Code(s): E55.9 - Vitamin D deficiency, unspecified Plan: Labs ordered Plan The patient agreed to the use of a rn medical surgical for this encounter. Scribed for JAVY Yuan by Rocio Cassidy rn medical surgical, on 05/22/2023 at 13:25 EST. Orders: Orders Complete Blood Count Auto Diff Today Z00.00 - Encounter for general adult medical examination without abnormal findings Lipid Panel Today Z00.00 - Encounter for general adult medical examination without abnormal findings Vitamin D 25-OH Total Today E55.9 - Vitamin D deficiency, unspecified Comprehensive [place]. Panel Fast Today Z00.00 - Encounter for general adult medical examination without abnormal findings TSH reflex Free T4 Today Z00.00 - Encounter for general adult medical examination without abnormal findings UA CC w/rflx Micro + Cult Today Z00.00 - Encounter for general adult medical examination without abnormal findings Coding Level of Care Code Est Pt Prev Care 40-64y(22351) Diagnoses Physical exam Z00.00 Vitamin D deficiency E55.9
== END 2023-05-22 14:29 | disposition home or self-care (01) ==
PROVIDERS: Visit Provider Nurse Practitioner Family
DX: Z00.00 Encounter for general adult medical examination without abnormal findings (principal); E55.9 Vitamin D deficiency, unspecified
CPT/HCPCS: 99396

== ENCOUNTER 2023-06-30 08:25 | Outpatient (REF) | payer OTHER, SELFPAY ==
[2023-06-30 09:09] LABS: Basophils Absolute Auto 0.1 X10*3/uL (0.0-0.2); Basophils Percent Auto 0.9 % (0-2); Eosinophils Absolute Auto 0.3 X10*3/uL (0.0-0.4); Eosinophils Percent Auto 2.7 % (0-4); Hematocrit 42.3 % (37.0-47.0); Hemoglobin 14.5 g/dl (12.0-16.0); Imm Gran Abs Auto 0.05 X10*3/uL (0.00-0.03); Imm Gran Pct Auto 0.4 % (0.0-0.4); Lymphocytes Percent Auto 53.6 % (20-40); MANUAL DIFF FLAG SCAN; Mean Corpuscular HGB Conc 34.3 g/dl (31.0-35.0); Mean Corpuscular Hemoglobin 29.3 pg (27.0-33.0); Mean Corpuscular Volume 85.5 fL (80.0-98.0); Mean Platelet Volume 8.4 fL (9.4-12.3); Monocytes Absolute Auto 1.1 X10*3/uL (0.1-1.2); Monocytes Percent Auto 8.8 % (2-11); Neutrophils Absolute Auto 4.1 x10*3/uL (2.0-8.3); Neutrophils Percent Auto 33.6 % (45-73); Platelet Count 409 X10*3/uL (160-400); Red Blood Count 4.95 X10*6/uL (4.20-5.50); Red Cell Distribution Width 13.5 % (11.0-16.0); SCAN SMEAR FLAG 1; White Blood Count 12.1 X10*3/uL (4.8-10.8)
[2023-06-30 09:10] LABS: Lymphocytes Absolute Auto 6.5 X10*3/uL (1.2-4.9)
[2023-06-30 10:03] LABS: Alanine Aminotransferase 58 U/L (0-31); Albumin Level 4.6 g/dL (3.5-5.0); Alkaline Phosphatase 60 U/L (39-117); Anion Gap 16 (12-20); Aspartate Amino Transferase 32 U/L (5-31); Bilirubin Total 0.3 mg/dL (0.0-1.0); Blood Urea Nitrogen 9 mg/dL (9-16); Calcium 10.9 mg/dL (8.4-10.2); Carbon Dioxide 27 mmol/L (22-29); Chloride 100 mmol/L (96-108); Cholesterol 224 mg/dL (<200); Estimated Glomerular Filt Rate > 60; Glucose Fasting 109 mg/dL (60-99); HDL Cholesterol 49 mg/dL (>40); LDL Cholesterol Calculated 135 mg/dL (<100); Potassium 2.8 mmol/L (3.3-5.1); Sodium 140 mmol/L (135-145); Total Protein 7.5 g/dL (6.5-8.0); Triglycerides 203 mg/dL (<150)
[2023-06-30 10:07] LABS: TSH reflex Free T4 2.83 uIU/mL (0.32-4.0); Vitamin D 25-OH Total 35.3 ng/mL (>30)
[2023-06-30 10:55] LABS: SLIDE REVIEW VERIFIED
[2023-06-30 14:24] LABS: Appearance Urine Cloudy; Color Urine Yellow; Glucose Urine UA Negative (Negative); Leukocyte Esterase Urine Negative (Negative); Nitrite Urine Negative (Negative); PH 6.5 (5.0-9.0); Urine Blood Negative (Negative); Urine Ketones Negative (Negative); Urine Protein Negative (Neg-Trace)
== END 2023-06-30 08:26 | disposition home or self-care (01) ==
LOC: HO.LAB 08:25
PROVIDERS: PCP Nurse Practitioner Family; Visit Provider Nurse Practitioner Family
DX: Z00.00 Encounter for general adult medical examination without abnormal findings (principal); E55.9 Vitamin D deficiency, unspecified
CPT/HCPCS: 36415; 80053; 80061; 81003; 82306; 84443; 85025

== ENCOUNTER 2023-07-13 13:50 | Outpatient (AMB) | payer OTHER, SELFPAY ==
--- NOTE | 2023-07-13 13:56 | MHC.OFFVIS ---
Intake Vital Signs 07/13/23 13:57 Height 5 ft 3 in Weight 169 lb BMI 29.9 BP 120/88 Blood Pressure Location Rt brachial Position Sitting Intake Visit Reasons: follow up/Lvm Intake Note: Patient presents for follow up. Patient states everything is going well medication is working. Allergies Sulfa (Sulfonamide Antibiotics) [SULFA (SULFONAMIDE ANTIBIOTICS)] Allergy (Intermediate, Verified 07/13/23 14:03) HIVES aspirin [ASPIRIN] Adverse Reaction (Intermediate, Verified 07/13/23 14:03) ABD PAIN morphine [MORPHINE] Adverse Reaction (Intermediate, Verified 07/13/23 14:03) ABD PAIN almond Allergy (Severe, Uncoded 07/13/23 14:03) Stomack pain Lactose intollerance Allergy (Severe, Uncoded 07/13/23 14:03) Stomach pain, nausceau Medication List - Last Reconciled 07/13/23 by BACILIO Lopez albuterol sulfate 90 mcg/actuation (ProAir HFA) 2 puffs PO Q6H PRN albuterol sulfate 2.5 mg (3 mL) inhalation Q6H PRN amitriptyline 50 mg (2 x 25 mg) PO BEDTIME 30 days amlodipine 5 mg PO DAILY azelastine 1 spray intranasal BID chlorthalidone 25 mg PO DAILY cholecalciferol (vitamin D3) (Vitamin D3) 25 mcg PO DAILY diclofenac sodium 50 mg PO BID PRN diclofenac sodium 1% 2 grams topical BID PRN NS ezetimibe 10 mg PO DAILY 90 days famotidine (Pepcid) 40 mg PO BEDTIME Flovent HFA 110 mcg/actuation (fluticasone propionate) 1 puff inhalation BID NS fluvoxamine 100 mg PO BEDTIME gabapentin 600 mg PO BEDTIME gabapentin one twice a day and two at night galcanezumab-gnlm (Emgality Pen) 120 mg subcut ONCE 30 days hydrocortisone valerate 0.2% 1 appl topical BID PRN 30 days hydroxyzine pamoate 75 mg PO TID PRN linaclotide 145 mcg PO DAILY loratadine 10 mg PO DAILY magnesium oxide 400 mg PO DAILY 30 days memantine mg PO menthol-zinc oxide 0.44-20.6 % (Calmoseptine) 1 appl topical QID PRN menthol-zinc oxide 0.44-20.6 % (Calmoseptine) 1 appl topical QID PRN montelukast 10 mg PO BEDTIME omega-3 acid ethyl esters 1 cap PO BID 90 days omeprazole 20 mg PO DAILY ondansetron 8 mg PO Q8H PRN 14 days polyethylene glycol 3350 (Gavilax) 17 grams PO DAILY potassium chloride ER 30 mEq (3 x 10 mEq) PO DAILY 90 days pravastatin 10 mg PO BEDTIME prazosin 2 mg PO BEDTIME rizatriptan 5 - 10 mg (0.5 - 1 x 10 mg) PO Q2H PRN 21 days sennosides (Senna Laxative) 17.2 mg (2 x 8.6 mg) PO BEDTIME PRN sumatriptan succinate 50 - 100 mg (0.5 - 1 x 100 mg) PO Q2H PRN 30 days tizanidine 4 mg PO BID PRN 14 days HPI HPI Comments History of Present Illness Details 58-yr-old female presents for f/u visit. Pt reports she has not had 1 migarine since starting Emgality. She is tolerating the Emaglity well. She is concerned that she is having bilateral 2nd finger tremors, at rest and when using her phone. She is also having occasionally brief LLE movements that come form the upper hip/thigh region. She cannot suppress them. Both of these movements started about a month ago. She has generalized body pains- which she attributes to fibromyalgia She is prone to tilt her head to the right d/t neck pain, tightness. She denies hyposmia. She has some issues w/ constipation. She does not know if she has parasomnias. Her gait is slow, unsteady- has been for some time. States she falls at least once a week. Her Gabapentin was recently increased by psychiatry- per pt, for her fibromyalgia tx. In the past, she has taken risperidone for sleep for at least a year. [facility] Medical History Breast pain, right Allergies Migraines Renal calculi Bipolar disorder Chronic abdominal pain Osteoporosis Hyperparathyroidism Multinodular thyroid Depression Fibromyalgia Thrombocytosis Leukocytosis GERD (gastroesophageal reflux disease) Thyroid cancer PONV (postoperative nausea and vomiting) Elevated cholesterol Difficulty swallowing Vitamin D deficiency Anxiety Pulmonary nodule Asthma HTN (hypertension) Surgical History Hx of thyroidectomy H/O esophagogastroduodenoscopy H/O colonoscopy History of bilateral oophorectomy Hx of cholecystectomy S/P excision of lipoma History of total abdominal hysterectomy Hx of appendectomy Family History Father Diabetes mellitus Skin cancer Prostate cancer Mother HTN (hypertension) High cholesterol Mental health disorder Maternal Grandfather Myocardial infarction Maternal Grandmother No problems noted. Paternal Grandfather No problems noted. 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) Alcohol intake: never Patient Tobacco Use Status: Current everyday Tobacco user Tobacco use type: Cigarette Cigarettes Per Day: 5 Years Smoked: 20 e-Cigarette/Vaping Use: Never Used Second Hand Smoke Exposure: No Advance Directives Date on File: 10/11/16 service: No Current occupational status: disabled Sexual orientation: Straight/Heterosexual Gender identity: Female Cognitive needs: No Hearing needs: No Vision needs: No Review of Systems Const All systems reviewed & are unremarkable except as noted in HPI and below Physical Exam Vital Signs: Last Vital Signs BP 120/88 07/13/23 13:57 BMI result Body Mass Index 29.9 Const General: cooperative and no acute distress Orientation/consciousness: patient oriented x3 HEENT Head: Yes normocephalic Resp Effort & Inspection: normal respiratory effort and able to speak in complete sentences Neuro Other: Pt tends to rest with head tilted to the right Bilateral R > L lateral and posterior cervical tightness and tenderness BUE 2nd finger kinetic tremor on F-N. FFM: slow, more so on right Foot taps- Slow, poorly fluid Slow to stand, uses hands to assist, decreased arm swing, short, steps. General: patient oriented x3 and CN's II-XI intact bilaterally Cognition (Neuro): normal cognition Psych Appearance: grossly normal Mental Status: mental status grossly normal Speech and movement: Clear speech present Affect: normal affect Attitude: cooperative Thought process: Normal thought process present Assessment & Plan Assessment & Plan (1) Migraines: Code(s): G43.909 - Migraine, unspecified, not intractable, without status migrainosus (2) Tremor: Code(s): R25.1 - Tremor, unspecified (3) Involuntary movements: Code(s): R25.9 - Unspecified abnormal involuntary movements (4) Gait abnormality: Code(s): R26.9 - Unspecified abnormalities of gait and mobility Plan For headache prevention: Continue riboflavin 200 mg b.i.d.. Continue magnesium 400-500 mg q.h.s., may hold for GI side effects. Increase Amitriptyline to 50mg qhs- for sleep as well- monitor mood. Hold Topiramate 25-50mg qhs- not effective. Start Emgality 240mg sc x's 1, then 120mg sc q month. ? For acute migraine treatment: Continue sumatriptan prn Hold Rizatripatn 5-10 mg- unsure of effect. For tremor- C-spine XR- Mild degenerative changes. Will check brain MRI w/wo to assess for new central etiologies of tremor, gait changes, such as ? interval vascular insult to basal ganglia. . On review, consider trial of CD-LD, DaTscan, PT- pt declined today. f/u in 3 months or sooner prn. Orders: Orders MR head/brain wo/w con Today R25.1 - Tremor, unspecified, R25.9 - Unspecified abnormal involuntary movements Medications: New alprazolam 0.25 mg orally 1 tab 30 minutes prior to MRI, may repeat x's 1; 1 day 2 tabs 0RF Coding Level of Care Code Est Pt Level 4 (41209) Diagnoses Migraines G43.909 Tremor R25.1 Involuntary movements R25.9 Gait abnormality R26.9
[2023-07-13 13:57] VITALS: BP 120/88; BMI 29.9
== END 2023-07-13 15:05 | disposition home or self-care (01) ==
PROVIDERS: PCP Nurse Practitioner Family; Visit Provider Nurse Practitioner Family
DX: G43.909 Migraine, unspecified, not intractable, without status migrainosus (principal); R25.1 Tremor, unspecified; R25.9 Unspecified abnormal involuntary movements; R26.9 Unspecified abnormalities of gait and mobility
CPT/HCPCS: 99214

== ENCOUNTER → 2023-07-13 13:50 | Outpatient (BNVA) | payer OTHER, SELFPAY | PROVIDERS: PCP Nurse Practitioner Family; Visit Provider Nurse Practitioner Family | DX: G43.909 Migraine, unspecified, not intractable, without status migrainosus (principal); R25.1 Tremor, unspecified; R25.9 Unspecified abnormal involuntary movements; R26.9 Unspecified abnormalities of gait and mobility | CPT/HCPCS: 99212 ==

== ENCOUNTER 2023-08-14 12:09 | Outpatient (REF) | payer OTHER, SELFPAY ==
[2023-08-14 13:17] LABS: Anion Gap 15 (12-20); Carbon Dioxide 26 mmol/L (22-29); Chloride 99 mmol/L (96-108); Potassium 2.7 mmol/L (3.3-5.1); Sodium 137 mmol/L (135-145)
== END 2023-08-14 12:10 | disposition home or self-care (01) ==
LOC: HO.LAB 12:09
PROVIDERS: PCP Nurse Practitioner Family; Visit Provider Nurse Practitioner Family
DX: E87.6 Hypokalemia (principal); M79.7 Fibromyalgia; R76.8 Other specified abnormal immunological findings in serum; Z79.899 Other long term (current) drug therapy
CPT/HCPCS: 36415; 80051; 99212

== ENCOUNTER 2023-08-14 13:03 | Outpatient (AMB) | payer OTHER, SELFPAY ==
--- NOTE | 2023-08-14 13:07 | A.OFFVIS_ITS ---
Intake Vital Signs 08/14/23 13:11 Height 5 ft 3 in Weight 164 lb 3.91 oz BMI 29.1 BP 108/70 Blood Pressure Location Rt brachial Position Left Lateral Pulse 98 Pulse Source Pulse Oximeter Intake Visit Reasons: fm Intake Note: Patient presents today to follow up on fibromyalgia. Last seen by Dr Reddy 02/22/23. Thread Singer Required: Yes Thread Singer Language: Environmental Protection Officer Name: Dorinda [email or web address] Information Interpreted: non-clinical & clinical Accompanied by: Self / Same As Patient Allergies Sulfa (Sulfonamide Antibiotics) [SULFA (SULFONAMIDE ANTIBIOTICS)] Allergy (Intermediate, Verified 08/14/23 13:14) HIVES aspirin [ASPIRIN] Adverse Reaction (Intermediate, Verified 08/14/23 13:14) ABD PAIN morphine [MORPHINE] Adverse Reaction (Intermediate, Verified 08/14/23 13:14) ABD PAIN almond Allergy (Severe, Uncoded 08/14/23 13:14) Stomack pain Lactose intollerance Allergy (Severe, Uncoded 08/14/23 13:14) Stomach pain, nausceau Medication List - Last Reconciled 08/14/23 by Hector Landa MD albuterol sulfate 90 mcg/actuation (ProAir HFA) 2 puffs PO Q6H PRN albuterol sulfate 2.5 mg (3 mL) inhalation Q6H PRN alprazolam 0.25 mg orally 1 tab 30 minutes prior to MRI, january repeat x's 1; 1 day amitriptyline 50 mg (2 x 25 mg) PO BEDTIME 30 days amlodipine 5 mg PO DAILY azelastine 1 spray intranasal BID chlorthalidone 25 mg PO DAILY cholecalciferol (vitamin D3) (Vitamin D3) 25 mcg PO DAILY diclofenac sodium 50 mg PO BID PRN diclofenac sodium 1% 2 grams topical BID PRN NS ezetimibe 10 mg PO DAILY 90 days famotidine (Pepcid) 40 mg PO BEDTIME Flovent HFA 110 mcg/actuation (fluticasone propionate) 1 puff inhalation BID NS fluvoxamine 100 mg PO BEDTIME gabapentin 600 mg PO BEDTIME galcanezumab-gnlm (Emgality Pen) 120 mg subcut ONCE 30 days hydrocortisone valerate 0.2% 1 appl topical BID PRN 30 days hydroxyzine pamoate 75 mg PO TID PRN linaclotide 145 mcg PO DAILY loratadine 10 mg PO DAILY magnesium oxide 400 mg PO DAILY 30 days memantine mg PO menthol-zinc oxide 0.44-20.6 % (Calmoseptine) 1 appl topical QID PRN montelukast 10 mg PO BEDTIME omega-3 acid ethyl esters 1 cap PO BID 90 days omeprazole 20 mg PO DAILY ondansetron 8 mg PO Q8H PRN 14 days polyethylene glycol 3350 (Gavilax) 17 grams PO DAILY potassium chloride ER 30 mEq (3 x 10 mEq) PO DAILY 90 days pravastatin 10 mg PO BEDTIME prazosin 2 mg PO BEDTIME quetiapine mg PO rizatriptan 5 - 10 mg (0.5 - 1 x 10 mg) PO Q2H PRN 21 days sennosides (Senna Laxative) 17.2 mg (2 x 8.6 mg) PO BEDTIME PRN tizanidine 4 mg PO BID PRN 14 days HPI HPI Comments History of Present Illness Details This patient with fibromyalgia presents for further evaluation. The [employer] translation service is used. She again describes her pain as being over the whole body. She feels it is in muscles, bones and joints. Even the skin is tender at times. She is on 600 t.i.d. of gabapentin which was increased by her primary doctor. She also takes tizanidine if needed 4 mg b.i.d., topical diclofenac gel and oral tried diclofenac fluvoxamine, and Seroquel. Headaches continue to plague her as well. She becomes tearful describing all her symptoms. [facility] Medical History Breast pain, right Allergies Migraines Renal calculi Bipolar disorder Chronic abdominal pain Osteoporosis Hyperparathyroidism Multinodular thyroid Depression Fibromyalgia Thrombocytosis Leukocytosis GERD (gastroesophageal reflux disease) Thyroid cancer PONV (postoperative nausea and vomiting) Elevated cholesterol Difficulty swallowing Vitamin D deficiency Anxiety Pulmonary nodule Asthma HTN (hypertension) Surgical History Hx of thyroidectomy H/O esophagogastroduodenoscopy H/O colonoscopy History of bilateral oophorectomy Hx of cholecystectomy S/P excision of lipoma History of total abdominal hysterectomy Hx of appendectomy Family History Father Diabetes mellitus Skin cancer Prostate cancer Mother HTN (hypertension) High cholesterol Mental health disorder Maternal Grandfather Myocardial infarction Maternal Grandmother No problems noted. Paternal Grandfather No problems noted. Paternal Grandmother Breast cancer Sister Mental health disorder Social History Household Members: None Housing: Apartment Are you a primary veterinarian laboratory animal care to a significant other at home: No Do you presently have visiting nurse or other home services: Yes ([employer]) Alcohol intake: never Patient Tobacco Use Status: Current everyday Tobacco user Tobacco use type: Cigarette Cigarettes Per Day: 5 Years Smoked: 20 e-Cigarette/Vaping Use: Never Used Second Hand Smoke Exposure: No Advance Directives Date on File: 10/11/16 service: No Current occupational status: disabled Sexual orientation: Straight/Heterosexual Gender identity: Female Cognitive needs: No Hearing needs: No Vision needs: No Review of Systems Const Details: Low energy and stamina. Negative for appetite change, weight change, fever, chills, malaise Eyes Details: Some ocular dryness and headaches. Negative for vision change and dizziness Skin/Breast Details: Negative for itching, rash, hives, Raynaud's symptoms, sun sensitivity, and skin cancer Neuro Details: Negative for epilepsy, palsy, stroke, changes in speech, tingling and weakness Psych Details: He also +at times. Does have a psychiatrist who has been adjusting her medications. Christopher/Lymph Details: Negative for excessive bruising or bleeding. Physical Exam Vital Signs: Last Vital Signs Pulse 98 08/14/23 13:11 BP 108/70 08/14/23 13:11 BMI result Body Mass Index 29.1 APPEARANCE: Patient in no acute distress EYES no redness, pupils equal and reactive to light, eyelids normal. No temporal artery tenderness, redness or swelling. EXTREMITIES: No edema, no calf tenderness, normal peripheral pulses. NEURO: Oriented and alert x3. No focal weakness. Reflexes symmetric. Gait normal. SKIN: No inflammatory or neoplastic lesions. Normal color and turgor JOINT EXAM:.?? Cervical Spine:.? Mild pain?with extremes of normal range of motion.? There is bilateral posterior cervical muscle and trapezial muscle tenderness. Thoracic Spine:.? No scoliosis.? No tenderness on palpation. Lumbar Spine:.? Alignment normal.? Full range of motion with mild pain at the extremes of normal range of motion and some mild lumbar muscle tenderness. Chest Wall:.? No tenderness, swelling, increased warmth or erythema. Hands:.? Normal pain-free range of motion.? There is rather diffuse tenderness in the joints and spaces between joints but no, swelling, increased warmth or erythema.? No sensory loss or thenar atrophy. Wrists:.? Normal pain-free range of motion with mild bilateral tenderness but no swelling,increased warmth or erythema. Elbows:. Normal pain-free range of motion without tenderness, swelling, increased warmth or erythema. Shoulders:.?? Mild pain with more than 45 degrees abduction or rotation.? Mild anterior tenderness but no swelling, increased warmth or erythema. Hips:.? Some lumbar pain with extremes of normal range of motion.? No groin pain with motion. Hip bursa:.? No tenderness. Knees:.?? Mild pain with extremes of motion.? Mild medial tenderness without patellofemoral crepitus, effusion, soft tissue swelling, increased warmth or erythema.? Ankles:.? Normal pain-free range of motion with mild tenderness but no swelling, increased warmth or erythema. Feet:.? Normal pain-free range of motion with mild tenderness across the insteps and MTP joints.? No soft tissue ? swelling, increased warmth or erythema. Tender points:? [id number] tenderness to digital palpation at the occiput, trapezius, second rib, lateral epicondyle, knees, greater trochanter and gluteal area bilaterally. Results Reviewed Results Reviewed: Laboratory Tests 06/30/23 08:43 WBC 12.1 H Hgb 14.5 Assessment & Plan Assessment & Plan (1) ROSE positive: Comment: 2020: 1:160, anti-DNA, ALBERT,C3 C4, SS-A,SS-B all negative Code(s): R76.8 - Other specified abnormal immunological findings in serum (2) Fibromyalgia: Code(s): M79.7 - Fibromyalgia Plan Once again her widespread pain seems consistent with fibromyalgia. I do not see signs of an active inflammatory arthritis present. We discussed a bit the diagnosis of fibromyalgia. She was encouraged to try to remain active with light aerobic activity. I tried to reassure her she was not harming the body if she did do light activity and had pain afterwards. At least it was beneficial at trying to keep her muscles somewhat active. She complains of being tremulous but I do not really detect a tremor today. She does have further follow-up planned in Neurology. They have apparently ordered an MRI of the brain but she never heard of it being scheduled. I told her to give them a call so they could look into it. I told her she was on the 3 classes of drugs we give for fibromyalgia: Antidepressants, membrane stabilizers, and muscle relaxants. I did not have further prescription recommendations for her at present. A follow- up in 5 months or so seems reasonable. Coding Level of Care Code Est Pt Level 3 (41244) Diagnoses ROSE positive R76.8 Fibromyalgia M79.7
[2023-08-14 13:11] VITALS: BP 108/70; PULSE 98; BMI 29.1
== END 2023-08-14 14:11 | disposition home or self-care (01) ==
PROVIDERS: PCP Nurse Practitioner Family; Visit Provider Internal Medicine Rheumatology
DX: R76.8 Other specified abnormal immunological findings in serum (principal); M79.7 Fibromyalgia
CPT/HCPCS: 99213

== ENCOUNTER 2023-08-30 07:52 | Outpatient (REF) | payer OTHER, SELFPAY ==
[2023-08-30 08:35] LABS: Anion Gap 14 (12-20); Carbon Dioxide 26 mmol/L (22-29); Chloride 102 mmol/L (96-108); Potassium 3.1 mmol/L (3.3-5.1); Sodium 139 mmol/L (135-145)
== END 2023-08-30 07:53 | disposition home or self-care (01) ==
LOC: HO.LAB 07:52
PROVIDERS: PCP Nurse Practitioner Family; Visit Provider Nurse Practitioner Family
DX: E87.6 Hypokalemia (principal); M81.0 Age-related osteoporosis without current pathological fracture; E21.3 Hyperparathyroidism, unspecified; Z85.850 Personal history of malignant neoplasm of thyroid; Z79.899 Other long term (current) drug therapy
CPT/HCPCS: 36415; 80051; 99212

== ENCOUNTER 2023-08-30 08:19 | Outpatient (AMB) | payer OTHER, SELFPAY ==
[2023-08-30 08:21] VITALS: BP 140/84; PULSE 123; BMI 29.3
--- NOTE | 2023-08-30 08:21 | MHC.OFFVIS ---
Intake Vital Signs 08/30/23 08:21 Height 5 ft 3 in Weight 165 lb 5.547 oz BMI 29.3 BP 140/84 H Blood Pressure Location Lt brachial Position Sitting Pulse 123 H Pulse Source Pulse Oximeter Intake Visit Reasons: Thyroid cancer / osteoporosis-CONFIRMED Intake Note: Former Dr. Woo patient last seen on 03/01/23. Patient presents today to follow up on Thyroid Cancer and Osteoporosis with Dr. Valdes. Touch Up Painter Hand Required: Yes Touch Up Painter Hand Language: Nurse Practitioner Per Diem Name: [facility] Information Interpreted: non-clinical & clinical Accompanied by: Self / Same As Patient Allergies Sulfa (Sulfonamide Antibiotics) [SULFA (SULFONAMIDE ANTIBIOTICS)] Allergy (Intermediate, Verified 08/30/23 08:33) HIVES aspirin [ASPIRIN] Adverse Reaction (Intermediate, Verified 08/30/23 08:33) ABD PAIN morphine [MORPHINE] Adverse Reaction (Intermediate, Verified 08/30/23 08:33) ABD PAIN almond Allergy (Severe, Uncoded 08/14/23 13:14) Stomack pain Lactose intollerance Allergy (Severe, Uncoded 08/14/23 13:14) Stomach pain, nausceau Medication List - Last Reconciled 08/30/23 by Deuce Valdes MD albuterol sulfate 90 mcg/actuation (ProAir HFA) 2 puffs PO Q6H PRN albuterol sulfate 2.5 mg (3 mL) inhalation Q6H PRN alprazolam 0.25 mg orally 1 tab 30 minutes prior to MRI, may repeat x's 1; 1 day amitriptyline 50 mg (2 x 25 mg) PO BEDTIME 30 days amlodipine 5 mg PO DAILY azelastine 1 spray intranasal BID chlorthalidone 25 mg PO DAILY cholecalciferol (vitamin D3) (Vitamin D3) 25 mcg PO DAILY diclofenac sodium 50 mg PO BID PRN diclofenac sodium 1% 2 grams topical BID PRN NS famotidine (Pepcid) 40 mg PO BEDTIME Flovent HFA 110 mcg/actuation (fluticasone propionate) 1 puff inhalation BID NS fluvoxamine 100 mg PO BEDTIME gabapentin 600 mg PO BEDTIME galcanezumab-gnlm (Emgality Pen) 120 mg subcut ONCE 30 days hydrocortisone valerate 0.2% 1 appl topical BID PRN 30 days hydroxyzine pamoate 75 mg PO TID PRN linaclotide 145 mcg PO DAILY loratadine 10 mg PO DAILY magnesium oxide 400 mg PO DAILY 30 days memantine mg PO menthol-zinc oxide 0.44-20.6 % (Calmoseptine) 1 appl topical QID PRN montelukast 10 mg PO BEDTIME omega-3 acid ethyl esters 1 cap PO BID 90 days omeprazole 20 mg PO DAILY ondansetron 8 mg PO Q8H PRN 14 days polyethylene glycol 3350 (Gavilax) 17 grams PO DAILY potassium chloride ER 40 mEq (4 x 10 mEq) PO DAILY 90 days pravastatin 10 mg PO BEDTIME prazosin 2 mg PO BEDTIME rizatriptan 5 - 10 mg (0.5 - 1 x 10 mg) PO Q2H PRN 21 days sennosides (Senna Laxative) 17.2 mg (2 x 8.6 mg) PO BEDTIME PRN tizanidine 4 mg PO BID PRN 14 days HPI HPI Comments History of Present Illness Details 58 year-old female with past medical history nontoxic multinodular goiter who is seen in follow-up today for papillary thyroid microcarcinoma and hyperparathyroidism. The patient last saw Dr. Woo 03/01/2023 The patient was seen initially by me for 3.2 cm left-sided thyroid lobe nodule and underwent FNA with benign cytology. She complained of compressive symptoms in this was referred to Dr. Hennessy for surgical thyroidectomy. She also was found to have laboratory evidence of primary hyperparathyroidism. She underwent left hemithyroidectomy with bilateral inferior parathyroidectomy on 01/15/2019. Her thyroid surgical pathology revealed papillary microcarcinoma of the thyroid, 0.4 cm, unifocal, no angio invasion or lymphatic invasion, no extrathyroidal extension. PT1a pNX. No additional treatment was recommended. Surgical pathology from her parathyroid glands revealed a right inferior parathyroid to have normocellular pathology, and the left inferior parathyroid gland to be hypercellular. The right inferior parathyroid weight 200 mg with the left inferior parathyroid weighing 160 mg. Immediate postoperative PTH was 23. No intraoperative PTH was assessed. She did initially request completion thyroidectomy, but after consultation with Dr. Hennesys she has decided against this and wishes to instead proceed with yearly surveillance of her R sided thyroid nodules. She continued to complain of symptoms of body aches and abdominal pain. She was also complaining of the sensation of swelling in her neck. Labs were repeated and were largely unchanged. Calcium remained high normal. It was thought that when corrected for Albumin her Calcium was WNL. 24 hour urine calcium was WNL. Her thyroid US revealed interval growth of a nodule on in the R lobe, and a newly identified complex cystic subcentimeter nodule within the R lobe. She underwent FNA biopsy of this R sided nodule 04/23/2020 with benign cytology. Recent labs reveal hypokalemia and elevated LFTs. Her Atorvastatin was stopped by her PCP, and she was started on Potassium supplements. She was worked up for hyperaldosteronism, and labs were not consistent with this with an elevated renin level. She had a repeat DEXA which shows worsening in the spine, but stability in hip and distal forearm. Thyroid US: 05/27/2021 Right Thyroid Lobe: 5.5 x 2.2 x 2.4 cm, volume 15.2 mL. Previously 5.5 x 2.2 x 2.4 cm, volume 15.2 mL. Parenchyma: The gland echotexture is homogeneous. Thyroid vascularity is increased. Left Thyroid Lobe: Surgically absent. Isthmus: 0.3 cm in maximum AP dimension. Previously 0.2 cm. Estimated total number of nodules greater than or equal to 1 cm: 0. Automobile Damage Appraiser nodules are described as follows: 1.? Location: Right mid lateral. ?? ? Size: 0.9 x 0.5 x 0.7 cm, volume 0.16 mL. ?? ? Previously: 1.0 x 0.7 x 0.6 cm, volume 0.22 mL. ?? ? Nodule characteristics: ?? ? Composition: Solid (2). ?? ? Echogenicity: Hypoechoic (2). ?? ? Shape: Not taller than wide (0). ?? ? Margins: Smooth (0). ?? ? Echogenic Foci: None (0). ? ACR TI-RADS total points: 4 ?? ? ACR TI-RADS category: 4 ? Significant change in size (>/= 20% in 2 dimensions and minimal increase of 2 mm or 50% or greater increase in volume): No ?? ? Change in features: No ?? ? Change in ACR TI-RADS risk category: No 2.? Location: Right inferior. ?? ? Size: 0.4 x 0.4 x 0.5 cm, volume 0.04 mL. ?? ? Previously: New since the prior study. ?? ? Nodule characteristics: ?? ? Composition: Cystic(0). ?? ? ACR TI-RADS total points: 0 ?? ? ACR TI-RADS category: 1 ?? ? 3.? Location: Right inferior. ?? ? Size: 0.5 x 0.3 x 0.3 cm, volume 0.02 mL. ?? ? Previously: 0.3 x 0.3 x 0.4 cm, volume 0.02 mL. ?? ? Nodule characteristics: ?? ? Composition: Cystic(0). ?? ? ACR TI-RADS total points: 0 ?? ? ACR TI-RADS category: 1 ? Significant change in size (>/= 20% in 2 dimensions and minimal increase of 2 mm or 50% or greater increase in volume): ?? ? Change in features: ?? ? Change in ACR TI-RADS risk category: NODES: No lymphadenopathy is seen in the tissue surrounding the thyroid gland. DEXA: 08/19/2021 FINDINGS: AP SPINE L1-L4: Current: BMD 0.801 g/cm2, Z-score -2.6, T-score -3.2, osteoporosis, 6.5% decrease from baseline (<5% change is not significant). Baseline: BMD 0.857 g/cm2. LEFT FEMUR, NECK: Current: BMD 0.821 g/cm2, Z-score -0.7, T-score -1.6, osteopenia. Baseline: BMD 0.845 g/cm2. LEFT FEMUR, TOTAL: Current: BMD 0.911 g/cm2, Z-score -0.3, T-score -0.8, normal, 0.0% no change from baseline (<5% change is not significant). Baseline: BMD 0.911 g/cm2. LEFT FOREARM RADIUS 33%: BMD 0.721 g/cm2, Z-score -1.4, T-score -1.8, osteopenia, 0.8% decrease from baseline (<5% change is not significant). Baseline: BMD 0.727 g/cm2. Labs: Took alendronate 3-4 mos and had pain in body and had to stop. Off for >1 yr [facility] Medical History (Updated 08/30/23 @ 08:31 by Deuce Valdes MD) Hypokalemia Breast pain, right Allergies Migraines Renal calculi Bipolar disorder Chronic abdominal pain Osteoporosis Hyperparathyroidism Multinodular thyroid Depression Fibromyalgia Thrombocytosis Leukocytosis GERD (gastroesophageal reflux disease) Thyroid cancer PONV (postoperative nausea and vomiting) Elevated cholesterol Difficulty swallowing Vitamin D deficiency Anxiety Pulmonary nodule Asthma HTN (hypertension) Surgical History Hx of thyroidectomy H/O esophagogastroduodenoscopy H/O colonoscopy History of bilateral oophorectomy Hx of cholecystectomy S/P excision of lipoma History of total abdominal hysterectomy Hx of appendectomy Family History Father Diabetes mellitus Skin cancer Prostate cancer Mother HTN (hypertension) High cholesterol Mental health disorder Maternal Grandfather Myocardial infarction Maternal Grandmother No problems noted. Paternal Grandfather No problems noted. Paternal Grandmother Breast cancer Sister Mental health disorder Social History Household Members: None Housing: Apartment Are you a primary human services care specialist to a significant other at home: No Do you presently have visiting nurse or other home services: Yes ([employer]) Alcohol intake: never Patient Tobacco Use Status: Current everyday Tobacco user Tobacco use type: Cigarette Cigarettes Per Day: 5 Years Smoked: 20 e-Cigarette/Vaping Use: Never Used Second Hand Smoke Exposure: No Advance Directives Date on File: 10/11/16 service: No Current occupational status: disabled Sexual orientation: Straight/Heterosexual Gender identity: Female Cognitive needs: No Hearing needs: No Vision needs: No Physical Exam Const Other: Healed scar status post left hemithyroidectomy. There are no cervical adenopathy palpated Assessment & Plan Assessment & Plan (1) History of thyroid cancer: Code(s): Z85.850 - Personal history of malignant neoplasm of thyroid Plan: This is a 58-year-old female with a history of micro papillary thyroid cancer status post left hemithyroidectomy. Right lobe is a presence of subcentimeter nodules. She appears to be clinically and biochemically euthyroid. Recent ultrasound shows stability in the size of the nodules Plan is for continued observation. (2) Osteoporosis: Code(s): M81.0 - Age-related osteoporosis without current pathological fracture Plan: Status post parathyroidectomy with DEXA bone density 2 years ago showing significant osteoporosis in the spine. Secondary workup was otherwise negative. Patient was supposed to start alendronate. Will repeat DEXA bone density of hip, spine and distal forearm. If There is no significant improvement in bone density, could consider use either anabolic agent like Evenity, Tymlos or Forteo followed by anti resorptive agent like Prolia which have the most benefit in this patient with high risk of fracture. Patient previously was intolerant to bisphosphonate (3) Hypokalemia: Code(s): E87.6 - Hypokalemia Plan: Patient has significant hypokalemia. Previous workup showed normal renin and aldosterone levels. I took the liberty of referring this patient to Dr. Garcia of Nephrology for further workup and treatment Orders: Orders XR DEXA axial skeleton Today M81.0 - Age-related osteoporosis without current pathological fracture Referrals Nephrology Referral E87.6 - Hypokalemia Coding Level of Care Code Est Pt Level 3 (01561) Diagnoses History of thyroid cancer Z85.850 Osteoporosis M81.0 Hypokalemia E87.6
== END 2023-08-30 09:09 | disposition home or self-care (01) ==
PROVIDERS: PCP Nurse Practitioner Family; Visit Provider Internal Medicine Endocrinology, Diabetes & Metabolism
DX: Z85.850 Personal history of malignant neoplasm of thyroid (principal); M81.0 Age-related osteoporosis without current pathological fracture; E87.6 Hypokalemia
CPT/HCPCS: 99213

== ENCOUNTER 2023-09-06 08:04 | Outpatient (REF) | payer OTHER, SELFPAY ==
[2023-09-06 08:39] LABS: Anion Gap 14 (12-20); Carbon Dioxide 25 mmol/L (22-29); Chloride 106 mmol/L (96-108); Potassium 3.6 mmol/L (3.3-5.1); Sodium 141 mmol/L (135-145)
== END 2023-09-06 08:05 | disposition home or self-care (01) ==
LOC: HO.LAB 08:04
PROVIDERS: PCP Nurse Practitioner Family; Visit Provider Nurse Practitioner Family
DX: E87.6 Hypokalemia (principal)
CPT/HCPCS: 36415; 80051

== ENCOUNTER 2023-09-21 08:50 | Outpatient (REF) | payer OTHER, SELFPAY ==
[2023-09-21 11:47] LABS: MANUAL DIFF FLAG NO
[2023-09-21 12:08] LABS: Basophils Absolute Auto 0.2 X10*3/uL (0.0-0.2); Basophils Percent Auto 1.5 % (0-2); Eosinophils Absolute Auto 0.3 X10*3/uL (0.0-0.4); Eosinophils Percent Auto 3.2 % (0-4); Hematocrit 45.2 % (37.0-47.0); Hemoglobin 15.3 g/dl (12.0-16.0); Imm Gran Abs Auto 0.06 X10*3/uL (0.00-0.03); Imm Gran Pct Auto 0.6 % (0.0-0.4); Lymphocytes Absolute Auto 4.3 X10*3/uL (1.2-4.9); Mean Corpuscular HGB Conc 33.8 g/dl (31.0-35.0); Mean Corpuscular Hemoglobin 30.1 pg (27.0-33.0); Mean Corpuscular Volume 88.8 fL (80.0-98.0); Mean Platelet Volume 8.8 fL (9.4-12.3); Monocytes Absolute Auto 0.9 X10*3/uL (0.1-1.2); Monocytes Percent Auto 9.3 % (2-11); Neutrophils Absolute Auto 4.4 x10*3/uL (2.0-8.3); Neutrophils Percent Auto 43.4 % (45-73); Platelet Count 470 X10*3/uL (160-400); Red Blood Count 5.09 X10*6/uL (4.20-5.50); Red Cell Distribution Width 13.7 % (11.0-16.0); White Blood Count 10.2 X10*3/uL (4.8-10.8)
[2023-09-21 12:27] LABS: Alanine Aminotransferase 64 U/L (0-31); Albumin Level 4.7 g/dL (3.5-5.0); Alkaline Phosphatase 58 U/L (39-117); Anion Gap 16 (12-20); Aspartate Amino Transferase 37 U/L (5-31); Bilirubin Total 0.4 mg/dL (0.0-1.0); Blood Urea Nitrogen 10 mg/dL (9-16); Calcium 10.5 mg/dL (8.4-10.2); Carbon Dioxide 27 mmol/L (22-29); Chloride 101 mmol/L (96-108); Estimated Glomerular Filt Rate > 60; Glucose Random 129 mg/dL (60-115); Potassium 3.3 mmol/L (3.3-5.1); Sodium 141 mmol/L (135-145); Total Protein 7.8 g/dL (6.5-8.0)
== END 2023-09-21 08:51 | disposition home or self-care (01) ==
LOC: HO.HMGCLDS 08:50
PROVIDERS: PCP Nurse Practitioner Family; Visit Provider Nurse Practitioner Family
DX: E87.6 Hypokalemia (principal)
CPT/HCPCS: 36415; 80053; 85025

== ENCOUNTER 2023-09-21 13:18 | Outpatient (AMB) | payer OTHER, SELFPAY ==
[2023-09-21 13:54] VITALS: BP 138/80; PULSE 101; O2SAT 98; BMI 29.8
--- NOTE | 2023-09-21 13:54 | MHC.PC.OV ---
Vital Signs 09/21/23 13:54 Height 5 ft 3 in Weight 168 lb BMI 29.8 BP 138/80 Blood Pressure Location Lt brachial Position Sitting Pulse 101 H Pulse Source Pulse Oximeter Pulse Oximetry (%) 98 Intake Visit Reasons: 4 Month follow up Intake Note: pt is here for 4 month f/u with labs Pigment Grinder Required: Yes Pigment Grinder Language: Azeri Allergies Sulfa (Sulfonamide Antibiotics) [SULFA (SULFONAMIDE ANTIBIOTICS)] Allergy (Intermediate, Verified 09/21/23 14:04) HIVES aspirin [ASPIRIN] Adverse Reaction (Intermediate, Verified 09/21/23 14:04) ABD PAIN morphine [MORPHINE] Adverse Reaction (Intermediate, Verified 09/21/23 14:04) ABD PAIN almond Allergy (Severe, Uncoded 08/14/23 13:14) Stomack pain Lactose intollerance Allergy (Severe, Uncoded 08/14/23 13:14) Stomach pain, nausceau Medication List - Last Reconciled 09/21/23 by TIFFANIE JamesP- albuterol sulfate 90 mcg/actuation (ProAir HFA) 2 puffs PO Q6H PRN albuterol sulfate 2.5 mg (3 mL) inhalation Q6H PRN alprazolam 0.25 mg orally 1 tab 30 minutes prior to MRI, may repeat x's 1; 1 day amitriptyline 50 mg (2 x 25 mg) PO BEDTIME 30 days amlodipine 5 mg PO DAILY azelastine 1 spray intranasal BID beclomethasone dipropionate 80 mcg/actuation (Qvar RediHaler) 1 inh inhalation Q12H 30 days chlorthalidone 12.5 mg (1/2 x 25 mg) PO DAILY 90 days cholecalciferol (vitamin D3) 25 mcg PO DAILY diclofenac sodium 50 mg PO BID PRN diclofenac sodium 1% 2 grams topical BID PRN NS famotidine (Pepcid) 40 mg PO BEDTIME Flovent HFA 110 mcg/actuation (fluticasone propionate) 1 puff inhalation BID NS gabapentin 600 mg PO BEDTIME galcanezumab-gnlm (Emgality Pen) 120 mg subcut ONCE 30 days hydrocortisone acetate (Anusol-HC) 25 mg AZ BID hydrocortisone valerate 0.2% 1 appl topical BID PRN 30 days hydroxyzine pamoate 75 mg PO TID PRN linaclotide 145 mcg PO DAILY loratadine 10 mg PO DAILY memantine mg PO menthol-zinc oxide 0.44-20.6 % (Calmoseptine) 1 appl topical QID PRN montelukast 10 mg PO BEDTIME omega-3 acid ethyl esters 1 cap PO BID 90 days omeprazole 20 mg PO DAILY ondansetron 8 mg PO Q8H PRN 14 days polyethylene glycol 3350 (Purelax) 17 grams PO DAILY potassium chloride ER 40 mEq (4 x 10 mEq) PO DAILY 90 days pravastatin 10 mg PO BEDTIME prazosin 2 mg PO BEDTIME rizatriptan 5 - 10 mg (0.5 - 1 x 10 mg) PO Q2H PRN 21 days sennosides (Senna Laxative) 17.2 mg (2 x 8.6 mg) PO BEDTIME PRN tizanidine 4 mg PO BID PRN 14 days Tobacco use date assessed: 09/21/23 Dental Screening Dental Screen Date: 09/21/23 Did you have a dental visit in the last 12 months?: Yes Did you have a dental problem in the last 6 months where you did not have access to dental care?: No Was dental information given to patient?: Patient has dentist HPI 4 Month follow up HPI Details Pt has a hx of hypokalemia. She is taking potassium 40 mEq. Pt was referred to nephrology by her medical records receptionist. Will decrease chlorthalidone from 25mg to 12.5mg. Will also increase amlodipine from 5mg to 10mg. Denies chest pain, shortness of breath, headache, dizziness, and blurred vision. Pt is requesting a cream for hemorrhoids, will send. Pt reports that her fibromyalgia pain has been worse. She is following up with rheumatology. Pt also sees pulmonology, neurology, GI, and special education teacher. [facility] Medical History Hypokalemia Breast pain, right Allergies Migraines Renal calculi Bipolar disorder Chronic abdominal pain Osteoporosis Hyperparathyroidism Multinodular thyroid Depression Fibromyalgia Thrombocytosis Leukocytosis GERD (gastroesophageal reflux disease) Thyroid cancer PONV (postoperative nausea and vomiting) Elevated cholesterol Difficulty swallowing Vitamin D deficiency Anxiety Pulmonary nodule Asthma HTN (hypertension) Surgical History Hx of thyroidectomy H/O esophagogastroduodenoscopy H/O colonoscopy History of bilateral oophorectomy Hx of cholecystectomy S/P excision of lipoma History of total abdominal hysterectomy Hx of appendectomy Family History Father Diabetes mellitus Skin cancer Prostate cancer Mother HTN (hypertension) High cholesterol Mental health disorder Maternal Grandfather Myocardial infarction Maternal Grandmother No problems noted. Paternal Grandfather No problems noted. 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) Alcohol intake: never Patient Tobacco Use Status: Current everyday Tobacco user Tobacco use type: Cigarette Cigarettes Per Day: 5 Years Smoked: 20 Packs per year/per ci.00 e-Cigarette/Vaping Use: Never Used Second Hand Smoke Exposure: No Advance Directives Date on File: 10/11/16 service: No Current occupational status: disabled Sexual orientation: Straight/Heterosexual Gender identity: Female Cognitive needs: No Hearing needs: No Vision needs: No Questionnaire Thrive Questionnaire Date Thrive assessed: 05/18/21 Review of Systems Const Reports as per HPI Physical exam (Primary Care) Vital Signs: Last Vital Signs Pulse 101 H 09/21/23 13:54 BP 138/80 09/21/23 13:54 Pulse Ox 98 09/21/23 13:54 BMI result Body Mass Index 29.8 Tobacco/Smoking Status: Tobacco use Status Tobacco use date assessed 09/21/23 09/21/23 14:05 Patient Tobacco Use Status Current everyday Tobacco 09/21/23 13:54 Tobacco use type Cigarette 09/21/23 13:54 e-Cigarette/Vaping Use Never Used 09/21/23 13:54 Thrive Assessment: Date of Thrive Assessment Date Thrive assessed 05/18/21 09/21/23 13:54 Const General: cooperative Orientation/consciousness: patient oriented x3 Resp Effort & Inspection: normal respiratory effort Auscultation: clear to auscultation bilaterally Cardio Rate: regular rate Rhythm: regular rhythm Heart sounds: S1 normal heart sound present and S2 normal heart sound present Neuro General: patient oriented x3 Psych Appearance: grossly normal Mental Status: mental status grossly normal Speech and movement: Normal speech and movement present Affect: normal affect Attitude: cooperative Thought process: Normal thought process present Thought content: Normal thought content present Insight: Good insight present (Psych) Judgement: Good judgement present (Psych) Office Procedures Flu Questionnaire Does the patient have a severe egg allergy?: No Does the patient have severe life threatening allergies?: No Does the patient have a fever or illness today?: No Has the patient ever had Guillain-[place] Syndrome?: No Has the patient ever had any past reaction to a flu shot?: No Immunizations flu vacc [id number] 6mos up(PF) 60 mcg(15 mcgx4)/0.5 mL IM syringe Performing Provider: JAVY James Performing Location: [facility] Administered by: Valentin Gutierrez CMA on 09/21/23 15:32 Dose Route Admin Location Dispensed Lot Number Expiration Date NDC [employer] 0.5 mL IM Right Deltoid 0.5 mL [id number] 03/03/24 22260-373-12 [email or web address] VIS Given Date VIS Provided VIS Publication Date 09/21/23 Single Vaccine 21 Eligibility Eligibility Date Funding Source Not [facility] Eligible 09/21/23 Private Assessment and Plan Assessment & Plan (1) Hypokalemia: Code(s): E87.6 - Hypokalemia Plan: Decreasing chlorthalidone, increasing amlodipine, labs ordered Plan The patient agreed to the use of a biomedical equipment support specialist for this encounter. Scribed for JAVY Yuan by Rocio Cassidy biomedical equipment support specialist, on 09/21/2023 at 14:15 EST. Orders: Orders Comprehensive Met. Panel Today E87.6 - Hypokalemia Influenza [id number] Immunization Today Z23 - Encounter for immunization Complete Blood Count Auto Diff Today E87.6 - Hypokalemia Comprehensive Met. Panel Today E87.6 - Hypokalemia Medications: New hydrocortisone 2.5% 1 appl [place] BID-QID PRN 30 grams 0RF hemorrhoids Changed From amlodipine 5 mg PO DAILY 90 tabs 1RF To amlodipine 10 mg PO DAILY 90 tabs 1RF 90 days Coding Level of Care Code Est Pt Level 3 (39681) Diagnoses Hypokalemia E87.6
== END 2023-09-21 14:49 | disposition home or self-care (01) ==
PROVIDERS: PCP Nurse Practitioner Family; Visit Provider Nurse Practitioner Family
DX: E87.6 Hypokalemia (principal); Z23 Encounter for immunization
CPT/HCPCS: 90471; 90686; 99213

== ENCOUNTER 2023-09-26 09:43 | Outpatient (REF) | payer OTHER, SELFPAY ==
--- NOTE | ~2023-09-26 | MR_ITS ---
EXAMINATION: MR BRAIN WITH AND WITHOUT CONTRAST CLINICAL INFORMATION: Tremor COMPARISON: MRI brain 02/02/2022 TECHNIQUE: MRI of the brain was obtained using routine sequences before and following administration of intravenous contrast. A total of 7.5 mL of Gadavist was administered intravenously. FINDINGS: No acute infarct. The GRE sequence is without susceptibility artifact to suggest acute or chronic blood products. No extra-axial fluid collection. Stable mild commensurate prominence of the ventricles and sulci. Stable mild nonspecific burden of scattered T2 FLAIR hyperintense foci in the subcortical and periventricular white matter. Multiple prominent perivascular spaces are redemonstrated throughout the subcortical and deep white matter as well as deep degroot nuclei. A developmental venous anomaly is seen in the right parietal lobe. No significant mass effect or herniation pattern. The intracranial dural venous sinus and arterial flow voids are preserved. Normal appearance of the midline structures. The orbits are grossly unremarkable. The paranasal sinuses are well aerated. Small left mastoid effusion. No suspicious osseous lesion. Asymmetric hypertrophic right C2-C3 facet arthropathy. 7 mm nasopalatine duct cyst. MR/MR head/brain wo/w con IMPRESSION: No acute intracranial abnormality. Stable examination since prior, including mild global cerebral volume loss. Stable mild burden of nonspecific white matter disease and prominent perivascular spaces in the supratentorial compartment.
[2023-09-26] MEDS: gadobutroL 7.5 ML VIAL IVPUSH (10:36)
== END 2023-09-26 09:44 | disposition home or self-care (01) ==
LOC: HO.MRI 09:43
PROVIDERS: PCP Nurse Practitioner Family; Visit Provider Nurse Practitioner Family
DX: R25.1 Tremor, unspecified (principal); R25.9 Unspecified abnormal involuntary movements
CPT/HCPCS: 70553; A9585

== ENCOUNTER 2023-10-06 08:36 | Outpatient (REF) | payer OTHER, SELFPAY ==
[2023-10-06 10:49] LABS: Iron 140 mcg/dL (30-160); Percent Iron Saturation 39 % (15-50); Total Iron Binding Capacity 360 mcg/dL (228-428); Unsaturated Iron Binding 220 ug/dL
[2023-10-06 11:03] LABS: Ferritin 84 ng/mL (10-250)
[2023-10-06 11:33] LABS: Appearance Urine Clear; Color Urine Yellow; Glucose Urine UA Negative (Negative); Leukocyte Esterase Urine Negative (Negative); Nitrite Urine Negative (Negative); PH 6.5 (5.0-9.0); Specific Gravity - Urine 1.015 (1.005-1.025); Urine Blood Negative (Negative); Urine Ketones Negative (Negative); Urine Protein Negative (Neg-Trace)
[2023-10-09 14:03] LABS: Alpha 1 Anti-trypsin 136 mg/dL (83-199)
[2023-10-09 20:38] LABS: Transglutaminase Ab IgG <1.0 U/mL; Transglutaminase IgA <1.0 U/mL
[2023-10-11 06:59] LABS: Liver Kidney Microsomal Ab <=20.0 U (<=20.0)
[2023-10-12 13:39] LABS: Soluble Liver Ag Autoantibody <20.1 U (0.0-20.0)
[2023-10-12 13:44] LABS: Smooth Muscle Antibody 37 U (<20)
[2023-10-12 16:15] LABS: Mitochondrial Antibodies NEGATIVE (NEGATIVE)
[2023-10-15 07:19] LABS: Aldolase 7.6 U/L (<=8.1)
== END 2023-10-06 08:37 | disposition home or self-care (01) ==
LOC: HO.LAB 08:36
PROVIDERS: PCP Nurse Practitioner Family; Visit Provider Internal Medicine Gastroenterology
DX: R30.0 Dysuria (principal); K59.00 Constipation, unspecified; R74.8 Abnormal levels of other serum enzymes; K74.60 Unspecified cirrhosis of liver; K75.81 Nonalcoholic steatohepatitis (NASH); G89.29 Other chronic pain; R10.33 Periumbilical pain; R79.89 Other specified abnormal findings of blood chemistry
CPT/HCPCS: 36415; 81003; 82085; 82103; 82164; 82728; 83520; 83540; 86015; 86364; 86376; 86381; 99212

== ENCOUNTER → 2023-10-06 08:36 | Outpatient (AMB) | payer OTHER, SELFPAY ==
--- NOTE | 2023-10-06 08:44 | A.OFFVIS_ITS ---
Intake Vital Signs 10/06/23 08:49 Height 5 ft 3 in Weight 168 lb BMI 29.8 BP 138/63 Blood Pressure Location Lt brachial Position Sitting Pulse 94 Intake Visit Reasons: 4-6 month fu Intake Note: iris presents in the office as a 4-6 month follow up. CC: Marketing Assistant Manager Required: Yes Allergies Sulfa (Sulfonamide Antibiotics) [SULFA (SULFONAMIDE ANTIBIOTICS)] Allergy (Intermediate, Verified 10/06/23 08:49) HIVES aspirin [ASPIRIN] Adverse Reaction (Intermediate, Verified 10/06/23 08:49) ABD PAIN morphine [MORPHINE] Adverse Reaction (Intermediate, Verified 10/06/23 08:49) ABD PAIN almond Allergy (Severe, Uncoded 10/06/23 08:49) Stomack pain Lactose intollerance Allergy (Severe, Uncoded 10/06/23 08:49) Stomach pain, nausceau HPI 4-6 month fu HPI Details 58 yr old f with asthma, fibromyalgia, H TN, constipation, hyperparathyroidism, hemithyroidectomy and headaches being seen for f/u RECAP: she has mild raised abn LFT she had issues wt abdominal pain, chronic EGD/colo -- hiatal hernia, schatzki ring, polyps, and int hemorrhoids rept colo 5 yrs GES- v abnormal 60% --01/2023 INTERIM: she has ongoing issues with nausea, and reflux no abdominal pain no diarrhea or constipation still smokes she has been having issues with K and following renal recent labs with borderline nml K, nml HGB, mild raised ca EXAM: GENERAL: The patient is well developed and nontoxic. VITAL SIGNS:see workflow HEENT: Nonicteric sclerae, PERRLA, EOMI. Oropharynx clear. Moist mucous membranes. Conjunctivae appear well perfused. No thyroid mass. CHEST: Chest wall is nontender. HEART: Regular rate and rhythm without murmurs. LUNGS: Clear to auscultation bilaterally. ABDOMEN: Soft, positive bowel sounds, tender suprapubic area, no organomegaly.no flank tenderness SKIN: No rash, no excessive bruising, petechiae, or purpura. NEUROLOGIC: Cranial nerves II-XII intact without motor/sensory deficit. a/P:1 early satiety, nausea and sporadic vomiting, with pos GES 60% at 4 hrs --gastroparesis may be due to her lyte abnormalities or prior hx of thyroid cancer, ROSE also been elevated in the past 2/ she has suproapubic pain, thinks its from prior hernia surgery PLAN: 1/ she never got the lansoprazole, still taking omeprazole 20 mg--will increase dose and see if helps 2/ Gastroparesis diet leaflet --low fat and low fiber 3/ probable ARAIZA, check serology (prior Hep B,C neg) and US liver 4/ check UA, if neg refer surgery for as sessment of suprapubic pain in case needs reassessment [facility] Medical History Hypokalemia Breast pain, right Allergies Migraines Renal calculi Bipolar disorder Chronic abdominal pain Osteoporosis Hyperparathyroidism Multinodular thyroid Depression Fibromyalgia Thrombocytosis Leukocytosis GERD (gastroesophageal reflux disease) Thyroid cancer PONV (postoperative nausea and vomiting) Elevated cholesterol Difficulty swallowing Vitamin D deficiency Anxiety Pulmonary nodule Asthma HTN (hypertension) Surgical History Hx of thyroidectomy H/O esophagogastroduodenoscopy H/O colonoscopy History of bilateral oophorectomy Hx of cholecystectomy S/P excision of lipoma History of total abdominal hysterectomy Hx of appendectomy Family History Father Diabetes mellitus Skin cancer Prostate cancer Mother HTN (hypertension) High cholesterol Mental health disorder Maternal Grandfather Myocardial infarction Maternal Grandmother No problems noted. Paternal Grandfather No problems noted. 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) Alcohol intake: never Patient Tobacco Use Status: Current everyday Tobacco user Tobacco use type: Cigarette Cigarettes Per Day: 5 Years Smoked: 20 e-Cigarette/Vaping Use: Never Used Second Hand Smoke Exposure: No Advance Directives Date on File: 10/11/16 service: No Current occupational status: disabled Sexual orientation: Straight/Heterosexual Gender identity: Female Cognitive needs: No Hearing needs: No Vision needs: No Physical Exam Vital Signs: Last Vital Signs Pulse 94 02/02/24 08:49 BP 138/63 10/06/23 08:49 BMI result Body Mass Index 29.8 Assessment & Plan Assessment & Plan (1) Elevated liver enzymes: Comment: > 25 daily meds- Liver enzymes elevated, ROSE Code(s): R74.8 - Abnormal levels of other serum enzymes Plan: PLAN: 1/ she never got the lansoprazole, still taking omeprazole 20 mg--will increase dose and see if helps 2/ Gastroparesis diet leaflet --low fat and low fiber 3/ probable ARAIZA, check serology (prior Hep B,C neg) and US liver 4/ check UA, if neg refer surgery for assessment of suprapubic pain in case needs reassessment Orders: Orders US abdomen hwang w elastography Today K74.60 - Unspecified cirrhosis of liver, K75.81 - Nonalcoholic steatohepatitis (ARAIZA), R74.8 - Abnormal levels of other serum enzymes Liver Kidney Microsomal Ab Today R74.8 - Abnormal levels of other serum enzymes Transglutaminase Ab IgG Today G89.29 - Other chronic pain, R10.33 - Periumbilical pain, R74.8 - Abnormal levels of other serum enzymes Transglutaminase IgA Today R74.8 - Abnormal levels of other serum enzymes Smooth Muscle Antibody Today R74.8 - Abnormal levels of other serum enzymes Aldolase Today R74.8 - Abnormal levels of other serum enzymes Ferritin Today R74.8 - Abnormal levels of other serum enzymes IRON PROFILE Today R74.8 - Abnormal levels of other serum enzymes UA CC w/rflx Micro + Cult Today R30.0 - Dysuria Mitochondrial Antibody Today R74.8 - Abnormal levels of other serum enzymes, R79.89 - Other specified abnormal findings of blood chemistry Soluble Liver Ag Autoantibody Today R74.8 - Abnormal levels of other serum enzymes Angiotensin Converting Enzyme Today R74.8 - Abnormal levels of other serum enzymes Alpha 1 Anti-trypsin Today R74.8 - Abnormal levels of other serum enzymes Medications: New omeprazole 40 mg PO DAILY 90 caps 3RF Refilled hydrocortisone 2.5% 1 appl GA BID-QID PRN 30 grams 0RF hemorrhoids Coding Level of Care Code Est Pt Level 4 (39517) Diagnoses Elevated liver enzymes R74.8
[2023-10-06 08:49] VITALS: BP 138/63; PULSE 94; BMI 29.8
== END ==
PROVIDERS: PCP Nurse Practitioner Family; Visit Provider Internal Medicine Gastroenterology
DX: R74.8 Abnormal levels of other serum enzymes (principal)
CPT/HCPCS: 99214

== ENCOUNTER 2023-10-10 13:40 | Outpatient (AMB) | payer OTHER, SELFPAY ==
[2023-10-10 13:55] VITALS: BP 118/78; PULSE 78; O2SAT 96; BMI 30.5
--- NOTE | 2023-10-10 13:55 | HO.NEPHOV_ITS ---
HPI HPI Comments History of Present Illness Details 58-year-old female with an extensive med ical history includes asthma, depression, bipolar disorder, hyperlipidemia, fibromyalgia, GERD, migraine, hyperthyroidism, thyroid cancer status post thyroidectomy, She has been referred for hypokalemia 2 years ago she had hypokalemia which wa s corrected. Recently she has had persistent hypokalemia. Potassium was in the low 2s. She was on chlorthalidone 25 mg a day. This was decreased to 12.5 mg and subsequently discontinued 3 weeks ago. The recent potassium was 4.4 millimoles per L on September 21. Serum chloride and bicarb levels were normal no alkalosis. Renal function has also been normal. She denies any polyuria or polydipsia. No history of any diarrhea. There is history of constipation. Currently she is on 8 tablets of potassium chloride. Of note she has not on diuretics at this time. [facility] Medical History Hypokalemia Breast pain, right Allergies Migraines Renal calculi Bipolar disorder Chronic abdominal pain Osteoporosis Hyperparathyroidism Multinodular thyroid Depression Fibromyalgia Thrombocytosis Leukocytosis GERD (gastroesophageal reflux disease) Thyroid cancer PONV (postoperative nausea and vomiting) Elevated cholesterol Difficulty swallowing Vitamin D deficiency Anxiety Pulmonary nodule Asthma HTN (hypertension) Surgical History Hx of thyroidectomy H/O esophagogastroduodenoscopy H/O colonoscopy History of bilateral oophorectomy Hx of cholecystectomy S/P excision of lipoma History of total abdominal hysterectomy Hx of appendectomy Family History Father Diabetes mellitus Skin cancer Prostate cancer Mother HTN (hypertension) High cholesterol Mental health disorder Maternal Grandfather Myocardial infarction Maternal Grandmother No problems noted. Paternal Grandfather No problems noted. 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) Alcohol intake: never Patient Tobacco Use Status: Current everyday Tobacco user Tobacco use type: Cigarette Cigarettes Per Day: 5 Years Smoked: 20 e-Cigarette/Vaping Use: Never Used Second Hand Smoke Exposure: No Advance Directives Date on File: 10/11/16 service: No Current occupational status: disabled Sexual orientation: Straight/Heterosexual Gender identity: Female Cognitive needs: No Hearing needs: No Vision needs: No Vital Signs 10/10/23 13:55 Height 5 ft 3 in Weight 172 lb 4 oz BMI 30.5 BP 118/78 Blood Pressure Location Lt brachial Position Sitting Pulse 78 Pulse Source Pulse Oximeter Pulse Oximetry (%) 96 Oxygen Delivery Method Room Air Physical Exam Vital Signs: Last Vital Signs Pulse 78 10/10/23 13:55 BP 118/78 10/10/23 13:55 Pulse Ox 96 10/10/23 13:55 Oxygen Delivery Method Room Air 10/10/23 13:55 BMI result Body Mass Index 30.5 Const General: comfortable Nutritional Appearance: well nourished Orientation/consciousness: patient oriented x3 HEENT Head: No normal to inspection Mouth: moist mucous membranes Neck Neck: Yes supple and Yes no JVD Resp Auscultation: clear to auscultation bilaterally, no rales and rub present Cardio Jugular venous distension: no JVD Palpation: no palpable S3 and no palpable S4 Heart sounds: no rubs GI Palpation (GI): Soft to palpation and nontender Percussion: No Fluid wave present General: Yes no CVA tenderness Back/Spine/Pelvis Back: no CVA tenderness Skin General skin exam: no rashes or lesions noted Neuro General: patient oriented x3 Extrem General: Yes no pedal edema and No clubbing Assessment & Plan Assessment & Plan (1) Hypokalemia: Code(s): E87.6 - Hypokalemia Plan Middle-aged woman with multiple medical problems comes in with significant hypokalemia. He initially she was on chlorthalidone with potassium supplementation. However after lowering chlorthalidone potassium was still significantly low. Currently she is on 80 mEq of potassium supplementation. No alkalosis. She does have hypertension. In the past she had plasma renin and aldosterone levels which were all in the normal range. I have initiated workup for hypokalemia. We will check serum potassium today since she is on high dose of potassium supplementation without diuretics. Check serum aldosterone and plasma renin activity along with a plasma aldosterone ratio. Would not use any diuretics at this time. The blood pressure is well controlled with amlodipine. Once the workup is completed we can switch amlodipine to s pironolactone to see if that controls the blood pressure without requiring high dose of potassium chloride supplementation. Differential diagnosis would still include Bartter's syndrome and Gitelman s yndrome. Serum magnesium level has been ordered. After the workup is complete she will return to office in the next 1 week Orders: Orders Sodium Urine Random Today E87.6 - Hypokalemia Total Protein Urine Random Today E87.6 - Hypokalemia UA and rflx microscopic Today E87.6 - Hypokalemia Magnesium Today E87.6 - Hypokalemia Osmolality Urine Today E87.6 - Hypokalemia Osmolality, Serum Today E87.6 - Hypokalemia Parathyroid Hormone Intact Today E87.6 - Hypokalemia Comprehensive Met. Panel Today E87.6 - Hypokalemia Cortisol Random Today E87.6 - Hypokalemia Aldosterone Today E87.6 - Hypokalemia Renin Today E87.6 - Hypokalemia Creatinine Urine Today E87.6 - Hypokalemia Chloride Urine Random Today E87.6 - Hypokalemia Vitamin D 25-OH (D2 and D3) Today E87.6 - Hypokalemia Phosphorus Today E87.6 - Hypokalemia Coding Level of Care Code New Pt Level 4 (17270) Diagnoses Hypokalemia E87.6 Results Reviewed Nephrology Results: Hgb 15.3 g/dl (12.0-16.0) 09/21/23 WBC 10.2 X10*3/uL (4.8-10.8) 09/21/23 Plt Count 470 X10*3/uL (160-400) H 09/21/23 Sodium 141 mmol/L (135-145) 09/21/23 Potassium 3.3 mmol/L (3.3-5.1) 09/21/23 Chloride 101 mmol/L (96-108) 09/21/23 Carbon Dioxide 27 mmol/L (22-29) 09/21/23 BUN 10 mg/dL (9-16) 09/21/23 Creatinine 0.83 mg/dL (0.5-1.4) 09/21/23 Calcium 10.5 mg/dL (8.4-10.2) H 09/21/23 Urine Protein Negative mg/dL (Neg-Trace) 10/06/23
== END 2023-10-10 14:28 | disposition home or self-care (01) ==
PROVIDERS: PCP Nurse Practitioner Family; Visit Provider Internal Medicine Hypertension Specialist
DX: E87.6 Hypokalemia (principal)
CPT/HCPCS: 99204

== ENCOUNTER 2023-10-10 13:40 | Outpatient (REF) | payer OTHER, SELFPAY ==
[2023-10-10 15:31] LABS: Appearance Urine Clear; Color Urine Yellow; Glucose Urine UA Negative (Negative); Leukocyte Esterase Urine Negative (Negative); Nitrite Urine Negative (Negative); Urine Blood Negative (Negative); Urine Ketones Negative (Negative); Urine Protein Negative (Neg-Trace)
[2023-10-10 15:59] LABS: Alanine Aminotransferase 76 U/L (0-31); Albumin Level 4.7 g/dL (3.5-5.0); Alkaline Phosphatase 60 U/L (39-117); Anion Gap 15 (12-20); Aspartate Amino Transferase 34 U/L (5-31); Bilirubin Total 0.2 mg/dL (0.0-1.0); Blood Urea Nitrogen 12 mg/dL (9-16); Calcium 10.1 mg/dL (8.4-10.2); Carbon Dioxide 29 mmol/L (22-29); Chloride 101 mmol/L (96-108); Estimated Glomerular Filt Rate > 60; Glucose Random 124 mg/dL (60-115); Potassium 3.5 mmol/L (3.3-5.1); Sodium 141 mmol/L (135-145); Total Protein 7.8 g/dL (6.5-8.0)
[2023-10-10 16:03] LABS: Creatinine Urine 128.38 mg/dL; Total Protein Urine Random 10 mg/dL (<12)
[2023-10-10 16:04] LABS: Parathyroid Hormone Intact 47.3 pg/mL (8.7-77.1)
[2023-10-10 16:05] LABS: Alanine Aminotransferase 72 U/L (0-31); Albumin Level 4.7 g/dL (3.5-5.0); Alkaline Phosphatase 58 U/L (39-117); Anion Gap 16 (12-20); Aspartate Amino Transferase 34 U/L (5-31); Bilirubin Total 0.2 mg/dL (0.0-1.0); Blood Urea Nitrogen 12 mg/dL (9-16); Calcium 10.2 mg/dL (8.4-10.2); Carbon Dioxide 28 mmol/L (22-29); Chloride 101 mmol/L (96-108); Estimated Glomerular Filt Rate > 60; Glucose Random 126 mg/dL (60-115); Magnesium 2.1 mg/dL (1.6-2.6); Phosphorus 3.8 mg/dL (2.7-4.5); Potassium 3.5 mmol/L (3.3-5.1); Sodium 141 mmol/L (135-145); Total Protein 7.9 g/dL (6.5-8.0)
[2023-10-10 16:07] LABS: Osmolality, Serum 297 mosm/kg (281-305)
[2023-10-10 16:07] LABS: Osmolality Urine 670 mosm/kg (373-1093)
[2023-10-10 16:25] LABS: Cortisol Random 11.4 ug/dL
[2023-10-16 15:29] LABS: Renin 14.22 ng/mL/h (0.25-5.82)
[2023-10-20 14:08] LABS: Vitamin D 25-OH, D2 <4 ng/mL; Vitamin D 25-OH, D3 32 ng/mL; Vitamin D 25-OH, Total 32 ng/mL (30-100)
== END 2023-10-10 13:41 | disposition home or self-care (01) ==
LOC: HO.LAB 13:40
PROVIDERS: PCP Nurse Practitioner Family; Visit Provider Internal Medicine Hypertension Specialist
DX: E87.6 Hypokalemia (principal)
CPT/HCPCS: 36415; 80053; 81003; 82088; 82306; 82436; 82533; 82570; 83735; 83930; 83935; 83970; 84100; 84156; 84244; 84300; 99202

== ENCOUNTER 2023-10-13 09:11 | Outpatient (REF) | payer OTHER, SELFPAY ==
--- NOTE | ~2023-10-13 | MM_ITS ---
EXAMINATION: BONE DENSITOMETRY CLINICAL INDICATION: Age-related osteoporosis without current pathological fracture. COMPARISON: Previous BD dated 08/19/2021 and baseline BD dated 05/12/2020. TECHNIQUE: Using a [employer] DXA System (software version: 13.1) manufactured by [employer] (formerly [employer]), dual-energy x-ray absorptiometry was performed of the lumbar spine, left hip, and left forearm radius 33%. The images are of good technical quality. Summary results are attached. FINDINGS: LEFT FEMUR, NECK: Current: BMD 0.842 g/cm2, Z-score -0.6, T-score -1.4, osteopenia. Prior: BMD 0.821 g/cm2. Baseline: BMD 0.845 g/cm2. LEFT FEMUR, TOTAL: Current: BMD 0.913 g/cm2, Z-score -0.3, T-score -0.8, normal, 0.2% increase from previous, 0.2% increase from baseline (<5% change is not significant). Prior: BMD 0.911 g/cm2. Baseline: BMD 0.911 g/cm2. AP SPINE L1-L4: Current: BMD 0.755 g/cm2, Z-score -3.0, T-score -3.5, osteoporosis, 5.7% decrease from previous, 11.9% decrease from baseline (<5% change is not significant). Prior: BMD 0.801 g/cm2. Baseline: BMD 0.857 g/cm2. LEFT FOREARM RADIUS 33%: BMD 0.739 g/cm2, Z-score -1.0, T-score -1.6, osteopenia, 2.5% increase from previous, 1.7% increase from baseline (<5% change is not significant). Prior: BMD 0.721 g/cm2. Baseline: BMD 0.727 g/cm2. IDENTIFIED RISK FACTORS: Menopause, hysterectomy, bilateral oophorectomy, height loss, hyperparathyroid, osteoporosis, recurrent falls, rheumatoid arthritis, tobacco use (current smoker), secondary osteoporosis (hyperthyroidism). HISTORY OF FRACTURE: None listed. MEDICATIONS: Vitamin D, bisphosphonate. MM/XR DEXA appendicular skeleton IMPRESSION: 1. DIAGNOSIS: Osteoporosis based on the lowest T-score value of -3.5 in the lumbar spine applying World Health Organization criteria. 2. 10-YEAR FRACTURE RISK PREDICTION, FRAX: According to the guidelines, FRAX calculation should only be performed on patients in the osteopenia bone density category. Therefore, FRAX was not performed on this patient. 3. Treatment Recommendations: NOF guidelines recommend consideration for treatment in postmenopausal women and men age 50 and older presenting with the following: -A hip or vertebral (clinical or morphometric) fracture. -T-score less than or equal to -2.5 at the femoral neck or spine after appropriate evaluation to exclude secondary causes. -Low bone mass at the hip or spine and a 10-year fracture probability by FRAX of greater than or equal to 3% for hip fracture or greater than or equal to 20% for major osteoporotic fracture based on the [place] adapted WHO algorithm. 4. Other Recommendations: All treatment decisions require clinical judgment and consideration of individual patient factors, including patient preferences, comorbidities, previous drug use, risk factors not captured in the FRAX model (e.g. frailty, falls, vitamin D deficiency, increased bone turnover, interval significant decline in bone density) and possible under or overestimation of fracture risk by FRAX. Additional medical evaluation for secondary cause of low bone mineral density may be appropriate. FUTURE SCAN RECOMMENDATION: People with diagnosed cases of osteoporosis or at high risk for fracture should have regular bone mineral density tests. For patients eligible for Medicare, routine testing is allowed once every 2 years. The testing frequency can be increased to one year for patients who have rapidly progressing disease, those who are receiving or discontinuing medical therapy to restore bone mass, or have additional risk factors.
== END 2023-10-13 09:12 | disposition home or self-care (01) ==
LOC: HO.MAMMO 09:11
PROVIDERS: PCP Nurse Practitioner Family; Visit Provider Internal Medicine Endocrinology, Diabetes & Metabolism
DX: M81.0 Age-related osteoporosis without current pathological fracture (principal)
CPT/HCPCS: 77081

== ENCOUNTER → 2023-10-19 14:27 | Outpatient (BNVA) | payer OTHER, SELFPAY | PROVIDERS: PCP Nurse Practitioner Family; Visit Provider Nurse Practitioner Family ==

== ENCOUNTER 2023-10-31 08:09 | Outpatient (REF) | payer OTHER, SELFPAY ==
--- NOTE | ~2023-10-31 | US_ITS ---
EXAMINATION: US ABDOMEN LIMITED WITH LIVER ELASTOGRAPHY CLINICAL INFORMATION: Nonalcoholic steatohepatitis. COMPARISON: None available. TECHNIQUE: Real-time imaging of the abdominal viscera. Noninvasive ultrasound liver fibrosis assessment is performed using Sabrina ElastPQ point quantification shear wave elastography (2D-SWE) with a C5-2 MHz transducer. Multiple elastography samples are obtained. FINDINGS: PANCREAS: Normal. The visualized pancreatic head and body are normal in appearance. The remainder of the pancreas is obscured from visualization by the overlying bowel gas. LIVER: The liver demonstrates normal contour and increased echogenicity. No focal lesion or intrahepatic biliary duct dilatation. The right lobe measures 19.8 cm in length. The left lobe measures 15.5 cm in length. Portal flow is towards the liver (hepatopetal). Shear wave liver elastography median stiffness is 1.68 m/s (reference: normal median stiffness is 1.3 m/s or less). IQR/median stiffness to assess sampling precision is 0.16 (reference: good quality data set is IQR/median stiffness of 0.15 or less). GALLBLADDER: Surgically absent. COMMON BILE DUCT: Normal in caliber measuring 0.3 cm in diameter. RIGHT KIDNEY: Normal. No hydronephrosis. No renal calculi or focal parenchymal lesions. The kidney measures 11.6 cm in maximum dimension. FREE FLUID: None. US/US abdomen hwang w elastography IMPRESSION: 1. There is generalized increase in hepatic echotexture, consistent with fatty infiltration or hepatocellular disease. Please correlate clinically. Provided history of nonalcoholic steatohepatitis noted. No focal hepatic mass or intrahepatic biliary dilatation is seen. 2. There is hepatomegaly. 3. Liver elastography: Although measurements appear to rule out compensated advanced chronic liver disease, there is statistical variability of the sampling which decreases accuracy. 4. Technically limited ultrasound appearance of the pancreas. REFERENCE: Society of Radiologists in Ultrasound Liver Stiffness Thresholds (2020): LIVER STIFFNESS THRESHOLDS: *Liver Stiffness equal or less than 1.3 m/s: High probability of being normal. *Liver Stiffness less than 1.7 m/s: In the absence of other known clinical signs, rules out compensated advanced chronic liver disease. *Liver Stiffness 1.7-2.1 m/s: Suggestive of compensated advanced chronic liver disease but need further test for confirmation. *Liver Stiffness over 2.1 m/s: Rules in compensated advanced chronic liver disease. *Liver Stiffness over 2.4 m/s: Suggestive of clinically significant portal hypertension. QUALITY OF DATA SET: *IQR/Median value equal or less than 0.15 implies a quality data set. *IQR/Median value over 0.15 implies a poor quality data set. SIGNIFICANT CHANGE FROM PRIOR EXAM: Significant change if liver stiffness measurement is 10% or greater from prior exam. OTHER CONSIDERATIONS: The stage of liver fibrosis may be overestimated in the setting of acute hepatitis, liver inflammation, elevated liver function tests, hepatic vascular congestion, obstructive cholestasis, non-fasting state, and infiltrative diseases such as amyloidosis and lymphoma. In some patients with NAFLD, the liver stiffness thresholds for compensated advanced chronic liver disease may be lower. In causes other than viral hepatitis and NAFLD, liver stiffness thresholds are not well established.
== END 2023-10-31 08:10 | disposition home or self-care (01) ==
LOC: HO.US 08:09
PROVIDERS: PCP Nurse Practitioner Family; Visit Provider Internal Medicine Gastroenterology
DX: K75.81 Nonalcoholic steatohepatitis (NASH) (principal); K74.60 Unspecified cirrhosis of liver; R74.8 Abnormal levels of other serum enzymes
CPT/HCPCS: 76705; 76981

== ENCOUNTER 2023-11-02 14:28 | Outpatient (AMB) | payer OTHER, SELFPAY ==
[2023-11-02 14:29] VITALS: BP 108/72; PULSE 96; O2SAT 97; BMI 30.6
--- NOTE | 2023-11-02 14:29 | HO.NEPHOV_ITS ---
HPI HPI Comments History of Present Illness Details 58-year-old female with an extensive med ical history includes asthma, depression, bipolar disorder, hyperlipidemia, fibromyalgia, GERD, migraine, hyperthyroidism, thyroid cancer status post thyroidectomy, She has been referred for hypokalemia 2 years ago she had hypokalemia which wa s corrected. Recently she has had persistent hypokalemia. Potassium was in the low 2s. She was on chlorthalidone 25 mg a day. This was decreased to 12.5 mg and subsequently discontinued 3 weeks ago. The recent potassium was 4.4 millimoles per L on September 21. Serum chloride and bicarb levels were normal no alkalosis. Renal function has also been normal. She denies any polyuria or polydipsia. No history of any diarrhea. There is history of constipation. Currently she is on 8 tablets of potassium chloride. Of note she says not on diuretics at this time. However, daughter gave her some natural diuretics for edema She is on high dose of Amlodipine -10mg [facility] Medical History (Updated 11/02/23 @ 14:59 by Jayant Damon MD) Hypokalemia Breast pain, right Allergies Migraines Renal calculi Bipolar disorder Chronic abdominal pain Osteoporosis Hyperparathyroidism Multinodular thyroid Depression Fibromyalgia Thrombocytosis Leukocytosis GERD (gastroesophageal reflux disease) Thyroid cancer PONV (postoperative nausea and vomiting) Elevated cholesterol Difficulty swallowing Vitamin D deficiency Anxiety Pulmonary nodule Asthma HTN (hypertension) Surgical History Hx of thyroidectomy H/O esophagogastroduodenoscopy H/O colonoscopy History of bilateral oophorectomy Hx of cholecystectomy S/P excision of lipoma History of total abdominal hysterectomy Hx of appendectomy Family History Father Diabetes mellitus Skin cancer Prostate cancer Mother HTN (hypertension) High cholesterol Mental health disorder Maternal Grandfather Myocardial infarction Maternal Grandmother No problems noted. Paternal Grandfather No problems noted. Paternal Grandmother Breast cancer Sister Mental health disorder Social History Household Members: None Housing: Apartment Are you a primary customer care consultant to a significant other at home: No Do you presently have visiting nurse or other home services: Yes ([employer]) Alcohol intake: never Patient Tobacco Use Status: Current everyday Tobacco user Tobacco use type: Cigarette Cigarettes Per Day: 5 Years Smoked: 20 e-Cigarette/Vaping Use: Never Used Second Hand Smoke Exposure: No Advance Directives Date on File: 10/11/16 service: No Current occupational status: disabled Sexual orientation: Straight/Heterosexual Gender identity: Female Cognitive needs: No Hearing needs: No Vision needs: No Vital Signs 11/02/23 14:29 Height 5 ft 3 in Weight 173 lb BMI 30.6 BP 108/72 Blood Pressure Location Lt brachial Position Sitting Pulse 96 Pulse Source Pulse Oximeter Pulse Oximetry (%) 97 Oxygen Delivery Method Room Air Physical Exam Vital Signs: Last Vital Signs Pulse 96 11/02/23 14:29 BP 108/72 11/02/23 14:29 Pulse Ox 97 11/02/23 14:29 Oxygen Delivery Method Room Air 11/02/23 14:29 BMI result Body Mass Index 30.6 Const General: cooperative and no acute distress Orientation/consciousness: patient oriented x3 Resp Effort & Inspection: normal respiratory effort and able to speak in complete sentences Neuro General: patient oriented x3 Cognition (Neuro): normal cognition Psych Appearance: grossly normal Mental Status: mental status grossly normal Speech and movement: Normal speech and movement present Affect: normal affect Attitude: cooperative Assessment & Plan Assessment & Plan (1) Hypokalemia: Code(s): E87.6 - Hypokalemia (2) HTN (hypertension): Code(s): I10 - Essential (primary) hypertension Plan Middle-aged woman with multiple medical problems comes in with significant hypokalemia. Initially she was on chlorthalidone with potassium supplementation. However after lowering chlorthalidone potassium was still significantly low. Currently she is on 80 mEq of potassium supplementation. No alkalosis. She does have hypertension. In the past she had plasma renin and aldosterone levels which were all in the normal range. workup for hypokalemia initiated. Serum Aldosterone was 19 and plasma renin was elevated at 14 Causes include diuretic use, renin producing tumor, renal artery stenosis ,etc Admits to taking diuretics ( daughter gave here 'Natural Diuretics:) The blood pressure is well controlled with amlodipine. But she has significant ankle edema - this is leading to diuretics use by this patient Will decrease Amlodipine from 10 mg down to 5 mg and reassess edema Check CTA for Renal artery stenosis and evalaute kidneys for possible renin producing adenomas If hypokalemia persists after stopping all diuretics, including natural diuretics , would obtain a diuretic screen Orders: Orders CT angio abdomen Today E87.6 - Hypokalemia, I10 - Essential (primary) hypertension Medications: Discontinued chlorthalidone Discontinued Reason: Doctor's Order 12.5 mg (1/2 x 25 mg) PO DAILY 90 days 45 tabs 1RF Coding Level of Care Code Est Pt Level 4 (44810) Diagnoses Hypokalemia E87.6 HTN (hypertension) I10 Results Reviewed Nephrology Results: Sodium 141 mmol/L (135-145) 10/10/23 Potassium 3.5 mmol/L (3.3-5.1) 10/10/23 Chloride 101 mmol/L (96-108) 10/10/23 Carbon Dioxide 28 mmol/L (22-29) 10/10/23 BUN 12 mg/dL (9-16) 10/10/23 Creatinine 0.79 mg/dL (0.5-1.4) 10/10/23 Calcium 10.2 mg/dL (8.4-10.2) 10/10/23 Phosphorus 3.8 mg/dL (2.7-4.5) 10/10/23 PTH Intact 47.3 pg/mL (8.7-77.1) 10/10/23 Urine Protein Negative mg/dL (Neg-Trace) 10/10/23 Urine Creatinine 128.38 mg/dL 10/10/23
== END 2023-11-02 15:00 | disposition home or self-care (01) ==
PROVIDERS: PCP Nurse Practitioner Family; Visit Provider Internal Medicine Hypertension Specialist
DX: E87.6 Hypokalemia (principal); I10 Essential (primary) hypertension
CPT/HCPCS: 99214

== ENCOUNTER → 2023-11-02 14:28 | Outpatient (BNVA) | payer OTHER, SELFPAY | PROVIDERS: PCP Nurse Practitioner Family; Visit Provider Internal Medicine Hypertension Specialist | DX: E87.6 Hypokalemia (principal); I10 Essential (primary) hypertension | CPT/HCPCS: 99212 ==

== ENCOUNTER 2023-12-15 12:48 | Outpatient (AMB) | payer OTHER, SELFPAY ==
[2023-12-15 13:05] VITALS: BP 138/72; PULSE 94; O2SAT 95; BMI 30.7
--- NOTE | 2023-12-15 13:05 | MHC.OFFVIS ---
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 Required: No Allergies Sulfa (Sulfonamide Antibiotics) [SULFA (SULFONAMIDE ANTIBIOTICS)] Allergy (Intermediate, Verified 12/15/23 13:07) HIVES aspirin [ASPIRIN] Adverse Reaction (Intermediate, Verified 12/15/23 13:07) ABD PAIN morphine [MORPHINE] Adverse Reaction (Intermediate, Verified 12/15/23 13:07) ABD PAIN almond Allergy (Severe, Uncoded 12/15/23 13:07) Stomack pain Lactose intollerance Allergy (Severe, Uncoded 12/15/23 13:07) Stomach pain, nausceau HPI HPI Comments History of Present Illness Details The patient is a 58-year-old woman with a known history of asthma in addition to pulmonary nodules. More recently she underwent thyroid surgery for an abnormal thyroid nodule. She had a partial thyroidectomy and the results were positive for cancer. She also has other nodules in the left lobe, but, apparently they did decrease in size. From a respiratory status she has been stable on the current respiratory regimen. She has not required prednisone. Also to note that she had a positive ROSE titer. She did follow-up with Rheumatology who data complete connective tissue disease workup and was negative. We did review her last CT scan of the chest that was done back in October 2018 for right middle lobe nodular density that appears to be partially calcified but with a haziness a rounded suggesting some degree of inflammation. Based on the fact the patient has a new diagnosis of thyroid cancer in the fact that her last CT scan was year ago the patient needs to have a repeat CT scan at this time. Otherwise the patient is without any other complaints. 11/08/2021 the patient is here for a pulmonary follow-up visit. Overall she has been complaining of increasing shortness of breath and also weight gain. She has been very frustrated with weight gain and also swelling. She will be following up with Rheumatology to see if there is any issues with her fibromyalgia resulting the swelling. She also has an elevated ROSE that she had in the past. She follow-up with Rheumatology regarding that as well. In the meantime the patient had a CT scan of the chest back in March 2021 demonstrating pulmonary nodules largest measuring 6 mm in size. She also history of thyroid cancer. She was supposed to have a CT scan previously but due to the pandemic she has not done so. In view of her worsening shortness of breath and history of thyroid cancer will go ahead and plan to repeat the CT scan prior to the next visit. She continues use her respiratory therapy. She had ran out of her singular because she did not follow-up. Therefore most likely some of the allergy symptoms and shortness of breath may be from the discontinuation of the medication. I am hopeful that her respiratory status improves when she gets back on therapy. She does have a rescue inhaler as well. If however after starting her Singulair in using her antihistamines if she continues to have increasing shortness of breath and wheezing and need for her rescue inhaler more than twice a week she will call and I will send her maintenance inhaler. 12/09/2022 the patient is here for pulmonary follow-up visit. The patient is struggling with multiple ailments. She is followed closely by multiple green building design specialist. She is getting pretty hard of all her medical issues. Has significant elements. She is working closely with GI and also Rheumatology. In the meantime she did have a CT scan of the chest requested by me demonstrating stable pulmonary nodules. The pulmonary nodules have not changed since 2017 so therefore no further intervention is warranted. She continues use her respiratory therapy. She still continues to be symptomatic with some coughing wheezing at times. In addition to that she complains of significant pruritus throughout her body and also some difficulties tolerating foods. She did have a food RAST study but was very limited. Therefore, I do believe that in view of all her elements and allergic reactions she should have a full allergy evaluation with scratch testing. Will go ahead and refer to Allergy at this time. In the meantime she can continue with her antihistamine therapy and also add Pepcid. 12/15/2023 the patient is here for pulmonary follow-up visit. She has been doing fairly well from a respiratory status. She does have episodes of shortness of breath and wheezing. They can be intermittent. Typically does respond to the rescue inhaler. She typically does not using inhaler often does not twice a week. The patient does use her maintenance inhaler. In addition to that she can dealing with other issues such as lower extremity edema. She was taken off her diuretic because she was having low potassium levels. She is following closely now with Nephrology. She is taking high-dose supplement. Her last potassium level was stable and she is going to have another drawn. The patient also has been complaining of pleuritic skin. She has been scratching a lot. She does not have a rash. She is wondering if his allergies. She had been taking antihistamine therapy. As far as her pulmonary nodules the CT scan that she had last back in 2020 demonstrated stable pulmonary nodules more than 2 years. The patient does not need any serial this time. [facility] Medical History (Updated 12/15/23 @ 13:25 by Murray Martinez MD) Hypokalemia Breast pain, right Allergies Migraines Renal calculi Bipolar disorder Chronic abdominal pain Osteoporosis Hyperparathyroidism Multinodular thyroid Depression Fibromyalgia Thrombocytosis Leukocytosis GERD (gastroesophageal reflux disease) Thyroid cancer PONV (postoperative nausea and vomiting) Elevated cholesterol Difficulty swallowing Vitamin D deficiency Anxiety Pulmonary nodule Asthma HTN (hypertension) Surgical History Hx of thyroidectomy H/O esophagogastroduodenoscopy H/O colonoscopy History of bilateral oophorectomy Hx of cholecystectomy S/P excision of lipoma History of total abdominal hysterectomy Hx of appendectomy Family History Father Diabetes mellitus Skin cancer Prostate cancer Mother HTN (hypertension) High cholesterol Mental health disorder Maternal Grandfather Myocardial infarction Maternal Grandmother No problems noted. Paternal Grandfather No problems noted. 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) Alcohol intake: never Patient Tobacco Use Status: Current everyday Tobacco user Tobacco use type: Cigarette Cigarettes Per Day: 5 Years Smoked: 20 e-Cigarette/Vaping Use: Never Used Second Hand Smoke Exposure: No Advance Directives Date on File: 10/11/16 service: No Current occupational status: disabled Sexual orientation: Straight/Heterosexual Gender identity: Female Cognitive needs: No Hearing needs: No Vision needs: No Review of Systems Const Denies night sweats and Reports weight gain Eyes Denies change in vision ENT Denies change in voice, Denies lip swelling, Denies mouth pain, Reports nasal congestion, Reports nasal discharge and Denies tongue swelling Card Denies chest pain Resp Reports cough and Reports wheezing GI Reports as per HPI, Reports abdominal pain, Reports bloating, Reports change in stool character, Reports constipation, Reports dyspepsia and Reports heartburn Musc Reports myalgias, Reports arthralgias and Reports joint swelling Skin/Breast Denies rash Neuro Denies Neuro-related abnormal movements Psych Denies no additional complaints Christopher/Lymph Denies easy bleeding and Denies lymphadenopathy Aller/Immun Denies lip swelling, Denies tongue swelling and Reports wheezing Physical Exam Vital Signs: Last Vital Signs Pulse 94 12/15/23 13:05 BP 138/72 12/15/23 13:05 Pulse Ox 95 12/15/23 13:05 Oxygen Delivery Method Room Air 12/15/23 13:05 BMI result Body Mass Index 30.7 Const Orientation/consciousness: patient oriented x3 HEENT Head: Yes normocephalic Resp Effort & Inspection: normal respiratory effort and able to speak in complete sentences Auscultation: clear to auscultation bilaterally Cardio Rate: regular rate Rhythm: regular rhythm Back/Spine/Pelvis Other: Bilateral posterior cervical tightness and tenderness. Neuro Other: DTR testing limited d/t pt anxious and moving. No pronator drift- but pt performed test slowly. General: patient oriented x3, gait normal and moves all extremities Cranial nerves: Yes Individual cranial nerve findings present II: normal, III: normal, IV: normal, V: abnormal (increased sensation on left), : normal, VII: normal, VIII: normal, IX: normal, X: normal, XI: normal and XII: normal Cognition (Neuro): normal cognition Gait exam (Neuro): Normal gait present Motor exam (neuro): 5/5 motor strength present throughout and Tremors during motor activity present (BUE mild postural tremor) Deep tendon reflexes (DTR's): Right triceps reflex intensity grade: 2+, Left triceps reflex intensity grade: 2+, Rt Biceps (C5, C6): 2+, Left biceps reflex intensity grade: 2+, Right brachioradialis reflex intensity grade: 2+, Left brachioradialis reflex intensity grade: 2+, Right patellar reflex intensity grade: 2+, Left patellar reflex intensity grade: 2+, Right ankle reflex intensity grade: 2+ and Left ankle reflex intensity grade: 2+ Coordination: [id number]-rb-[id number] test normal, dgie-fd-dmfd test normal, tandem gait normal and Romberg test negative Pupils: Normal pupillary reactivity/response: bilateral Psych Appearance: grossly normal Mental Status: mental status grossly normal Speech and movement: Clear speech present Affect: normal affect (more anxious during physical exam) Attitude: cooperative Thought process: Normal thought process present Assessment & Plan Assessment & Plan (1) Pulmonary nodules: Comment: stable 2017 to present. Benign. Code(s): R91.8 - Other nonspecific abnormal finding of lung field (2) Thyroid cancer: Code(s): C73 - Malignant neoplasm of thyroid gland (3) Asthma: Code(s): J45.909 - Unspecified asthma, uncomplicated Qualifiers: Asthma complication type: uncomplicated Asthma persistence: persistent Asthma severity: moderate Qualified Code(s): J45.40 - Moderate persistent asthma, uncomplicated Plan: Continue respiratory medications (4) Acid reflux: Code(s): K21.9 - Gastro-esophageal reflux disease without esophagitis Qualifiers: Esophagitis presence: without esophagitis Qualified Code(s): K21.9 - Gastro-esophageal reflux disease without esophagitis Plan continue montelukast continue antihistamines continue reflux diet No need for serial CT scan of the chest short-acting beta agonist as needed follow-up in 1 year Medications: New amoxicillin-pot clavulanate 875-125 mg 1 tab PO BID 20 tabs 0RF 10 days amoxicillin-pot clavulanate 875-125 mg 1 tab PO BID 20 tabs 0RF 10 days Coding Level of Care Code Est Pt Level 4 (90792) Diagnoses Pulmonary nodules R91.8 Thyroid cancer C73 Moderate persistent asthma without complication J45.40 Asthma complication type: uncomplicated Asthma persistence: persistent Asthma severity: moderate Gastroesophageal reflux disease without esophagitis K21.9 Esophagitis presence: without esophagitis Time Spent (min) 16
== END 2023-12-15 14:15 | disposition home or self-care (01) ==
PROVIDERS: PCP Nurse Practitioner Family; Visit Provider Hospitalist
DX: R91.8 Other nonspecific abnormal finding of lung field (principal); C73 Malignant neoplasm of thyroid gland; J45.40 Moderate persistent asthma, uncomplicated; K21.9 Gastro-esophageal reflux disease without esophagitis
CPT/HCPCS: 99214

== ENCOUNTER → 2023-12-15 12:48 | Outpatient (BNVA) | payer OTHER, SELFPAY | PROVIDERS: PCP Nurse Practitioner Family; Visit Provider Hospitalist | DX: J45.40 Moderate persistent asthma, uncomplicated (principal); R91.8 Other nonspecific abnormal finding of lung field; C73 Malignant neoplasm of thyroid gland; K21.9 Gastro-esophageal reflux disease without esophagitis | CPT/HCPCS: 99212 ==

== ENCOUNTER 2023-12-20 07:07 | Outpatient (REF) | payer OTHER, SELFPAY ==
--- NOTE | ~2023-12-20 | CT_ITS ---
EXAMINATION: CT ANGIOGRAM ABDOMEN CLINICAL INFORMATION: Evaluate renin producing tumors, rule out renal artery stenosis COMPARISON: CT abdomen and pelvis on 11/26/21 TECHNIQUE: Multiple axial images were obtained through the abdomen following the administration of 80 mL Omnipaque 350 intravenous contrast. Images were reviewed on a dedicated 3-D workstation. This CT examination was performed using dose optimization techniques as appropriate, variously including the following: *Automated exposure control *Adjustment of mA and/or kV according to patient size (this includes techniques or standardized protocols for targeted exams where dose is matched to indication/reason for exam; i.e. extremities or head) *Use of iterative reconstruction technique DLP: 156 mGy-cm FINDINGS: VASCULAR: ABDOMINAL AORTA: Abdominal aorta is normal in caliber, moderate atherosclerotic disease. CELIOMESENTERIC ARTERIES: Patent RENAL ARTERIES: Mild atherosclerotic disease at the bilateral renal artery origins, no significant stenosis. NONVASCULAR: Lung Bases: The visualized lung bases are unremarkable. Liver, Gallbladder and Biliary Tree: The liver is normal in size, shape, and attenuation. No focal hepatic lesion or biliary ductal dilatation is present. Prior cholecystectomy. Pancreas: Unremarkable. Spleen: Unremarkable. Adrenal Glands: Unremarkable. Kidneys and Ureters: The kidneys are normal in size, shape, and attenuation. No hydronephrosis, hydroureter, or calculi seen. No perinephric stranding. Visualized Gastrointestinal Tract: The small and large bowel are unremarkable. Small hiatal hernia. Abdominal Wall: Prior anterior abdominal wall hernia repair. Lymph Nodes: Normal. Osseous Structures: Unremarkable. CT/CT angio abdomen IMPRESSION: Mild atherosclerotic disease at the bilateral renal artery origins, no significant stenosis. Fleischner guidelines were followed.
[2023-12-20 08:14] LABS: Anion Gap 13 (12-20); Blood Urea Nitrogen 11 mg/dL (9-16); Carbon Dioxide 27 mmol/L (22-29); Chloride 97 mmol/L (96-108); Estimated Glomerular Filt Rate > 60; Sodium 134 mmol/L (135-145)
[2023-12-20 09:07] LABS: Potassium 2.7 mmol/L (3.3-5.1)
[2023-12-20] MEDS: iohexoL 350 MG/ML 100 ML INFUS..BTL IV (10:16)
== END 2023-12-20 07:08 | disposition home or self-care (01) ==
LOC: HO.CT 07:07
PROVIDERS: Internal Medicine Nephrology; PCP Nurse Practitioner Family; Visit Provider Internal Medicine Hypertension Specialist
DX: E87.6 Hypokalemia (principal); I10 Essential (primary) hypertension
CPT/HCPCS: 36415; 74175; 80051; 82565; 84520; Q9967

== ENCOUNTER 2023-12-22 08:03 | Outpatient (REF) | payer OTHER, SELFPAY ==
[2023-12-22 09:59] LABS: Creatinine Urine 182.58 mg/dL; Potassium Urine Random 143.3 mmol/L
[2023-12-22 10:14] LABS: Anion Gap 12 (12-20); Blood Urea Nitrogen 9 mg/dL (9-16); Calcium 9.5 mg/dL (8.4-10.2); Carbon Dioxide 27 mmol/L (22-29); Chloride 106 mmol/L (96-108); Estimated Glomerular Filt Rate > 60; Glucose Random 119 mg/dL (60-115); Potassium 3.5 mmol/L (3.3-5.1); Sodium 141 mmol/L (135-145)
[2023-12-22 10:17] LABS: Osmolality, Serum 288 mosm/kg (281-305)
[2023-12-22 14:47] LABS: Osmolality Urine 671 mosm/kg (373-1093)
== END 2023-12-22 08:04 | disposition home or self-care (01) ==
LOC: HO.LAB 08:03
PROVIDERS: Visit Provider Internal Medicine Hypertension Specialist
DX: E87.6 Hypokalemia (principal); N18.9 Chronic kidney disease, unspecified; N05.9 Unspecified nephritic syndrome with unspecified morphologic changes
CPT/HCPCS: 36415; 80048; 82436; 82570; 83930; 83935; 84133; 84300

== ENCOUNTER 2023-12-25 13:57 | Outpatient (AMB) | payer OTHER, SELFPAY ==
--- NOTE | 2023-12-25 14:02 | HO.NEPHOV ---
Vital Signs 12/25/23 14:03 Height 5 ft 3 in Weight 172 lb BMI 30.5 BP 130/84 Blood Pressure Location Lt brachial Position Sitting Pulse 107 H Pulse Source Pulse Oximeter Pulse Oximetry (%) 97 Oxygen Delivery Method Room Air Intake Visit Reasons: Hypokalemia/ 6 weeks fu/ Confirmed Recreational Resort Manager Required: Yes Recreational Resort Manager Name: Olimpia [id number] Accompanied by: Self / Same As Patient Allergies Sulfa (Sulfonamide Antibiotics) [SULFA (SULFONAMIDE ANTIBIOTICS)] Allergy (Intermediate, Verified 12/25/23 14:05) HIVES aspirin [ASPIRIN] Adverse Reaction (Intermediate, Verified 12/25/23 14:05) ABD PAIN morphine [MORPHINE] Adverse Reaction (Intermediate, Verified 12/25/23 14:05) ABD PAIN almond Allergy (Severe, Uncoded 12/15/23 13:07) Stomack pain Lactose intollerance Allergy (Severe, Uncoded 12/15/23 13:07) Stomach pain, nausceau HPI Comments Details: 58-year-old female with an extensive medical history includes asthma, depression, bipolar disorder, hyperlipidemia, fibromyalgia, GERD, migraine, hyperthyroidism, thyroid cancer status post thyroidectomy, She has been referred for hypokalemia 2 years ago she had hypokalemia which was corrected. Recently she has had persistent hypokalemia. Potassium was in the low 2s. She was on chlorthalidone 25 mg a day. This was decreased to 12.5 mg and subsequently discontinued 3 weeks ago. The recent potassium was 4.4 millimoles per L on September 21. Serum chloride and bicarb levels were normal no alkalosis. Renal function has also been normal. She denies any polyuria or polydipsia. No history of any diarrhea. There is history of constipation. Currently she is on 8 tablets of potassium chloride. Of note she says not on diuretics at this time. However, daughter gave her some natural diuretics for edema She is on high dose of Amlodipine -10mg 12/25/23 c/o Cramps K was low KCL increased to 10 mg Not of diuretics Has leg edema - on Amlodipine 5 mg QD Urine K was high CTA - NO MAGDALENA PFSH Medical History (Updated 12/15/23 @ 13:25 by Murray Martinez MD) Hypokalemia Breast pain, right Allergies Migraines Renal calculi Bipolar disorder Chronic abdominal pain Osteoporosis Hyperparathyroidism Multinodular thyroid Depression Fibromyalgia Thrombocytosis Leukocytosis GERD (gastroesophageal reflux disease) Thyroid cancer PONV (postoperative nausea and vomiting) Elevated cholesterol Difficulty swallowing Vitamin D deficiency Anxiety Pulmonary nodule Asthma HTN (hypertension) Surgical History Hx of thyroidectomy H/O esophagogastroduodenoscopy H/O colonoscopy History of bilateral oophorectomy Hx of cholecystectomy S/P excision of lipoma History of total abdominal hysterectomy Hx of appendectomy Family History Father Diabetes mellitus Skin cancer Prostate cancer Mother HTN (hypertension) High cholesterol Mental health disorder Maternal Grandfather Myocardial infarction Maternal Grandmother No problems noted. Paternal Grandfather No problems noted. 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) Alcohol intake: never Patient Tobacco Use Status: Current everyday Tobacco user Tobacco use type: Cigarette Cigarettes Per Day: 5 Years Smoked: 20 e-Cigarette/Vaping Use: Never Used Second Hand Smoke Exposure: No Advance Directives Date on File: 10/11/16 service: No Current occupational status: disabled Sexual orientation: Straight/Heterosexual Gender identity: Female Cognitive needs: No Hearing needs: No Vision needs: No Physical Exam Vital Signs: Last Vital Signs Pulse 107 H 12/25/23 14:03 BP 130/84 12/25/23 14:03 Pulse Ox 97 12/25/23 14:03 Oxygen Delivery Method Room Air 12/25/23 14:03 BMI result Body Mass Index 30.5 Const General: cooperative and no acute distress Orientation/consciousness: patient oriented x3 Resp Effort & Inspection: normal respiratory effort and able to speak in complete sentences Neuro General: patient oriented x3 Cognition (Neuro): normal cognition Psych Appearance: grossly normal Mental Status: mental status grossly normal Speech and movement: Normal speech and movement present Affect: normal affect Attitude: cooperative Results Reviewed Nephrology Results: Sodium 141 mmol/L (135-145) 12/22/23 Potassium 3.5 mmol/L (3.3-5.1) 12/22/23 Chloride 106 mmol/L (96-108) 12/22/23 Carbon Dioxide 27 mmol/L (22-29) 12/22/23 BUN 9 mg/dL (9-16) 12/22/23 Creatinine 0.77 mg/dL (0.5-1.4) 12/22/23 Calcium 9.5 mg/dL (8.4-10.2) 12/22/23 Phosphorus 3.8 mg/dL (2.7-4.5) 10/10/23 PTH Intact 47.3 pg/mL (8.7-77.1) 10/10/23 Urine Protein Negative mg/dL (Neg-Trace) 10/10/23 Urine Creatinine 182.58 mg/dL 12/22/23 Assessment & Plan Assessment & Plan (1) Hypokalemia: Code(s): E87.6 - Hypokalemia Category: Medical (2) HTN (hypertension): Code(s): I10 - Essential (primary) hypertension Category: Medical Plan Middle-aged woman with multiple medical problems comes in with significant hypokalemia. Initially she was on chlorthalidone with potassium supplementation. However after lowering chlorthalidone potassium was still significantly low. Currently she is on 100 mEq of potassium supplementation. No alkalosis. She does have hypertension. In the past she had plasma renin and aldosterone levels which were all in the normal range. Serum Aldosterone was 19 and plasma renin was elevated at 14 Causes include diuretic use, No evidence of renin producing tumor, or renal artery stenosis , based on CT SCAN AVOID chlorthalidone Due to edema , I will STOP amlodipine. ADD Spironolactone 12.5 mg DAILY and watch K If hypokalemia persists , would obtain a diuretic screen Orders: Orders Basic Metabolic Panel 2 Weeks E87.6 - Hypokalemia Medications: New multivitamin with minerals (Multiple Vitamin-Minerals tablet) 1 tab PO DAILY 30 tabs 3RF spironolactone H/o SEVERE HYPOKALEMIA 12.5 mg (1/2 x 25 mg) PO DAILY 30 tabs 0RF
[2023-12-25 14:03] VITALS: BP 130/84; PULSE 107; O2SAT 97; BMI 30.5
== END 2023-12-25 14:37 | disposition home or self-care (01) ==
LOC: HO.HKA 13:57
PROVIDERS: PCP Nurse Practitioner Family; Visit Provider Internal Medicine Hypertension Specialist
DX: E87.6 Hypokalemia (principal); I10 Essential (primary) hypertension
CPT/HCPCS: 99214

== ENCOUNTER → 2023-12-25 13:57 | Outpatient (BNVA) | payer OTHER, SELFPAY | PROVIDERS: PCP Nurse Practitioner Family; Visit Provider Internal Medicine Hypertension Specialist | DX: E87.6 Hypokalemia (principal); I10 Essential (primary) hypertension | CPT/HCPCS: 99212 ==

== ENCOUNTER 2023-12-29 09:43 | Outpatient (REF) | payer OTHER, SELFPAY ==
[2023-12-29 11:23] LABS: Anion Gap 12 (12-20); Blood Urea Nitrogen 9 mg/dL (9-16); Calcium 9.4 mg/dL (8.4-10.2); Carbon Dioxide 27 mmol/L (22-29); Chloride 106 mmol/L (96-108); Estimated Glomerular Filt Rate > 60; Glucose Random 90 mg/dL (60-115); Potassium 4.8 mmol/L (3.3-5.1); Sodium 140 mmol/L (135-145)
== END 2023-12-29 09:44 | disposition home or self-care (01) ==
LOC: HO.LAB 09:43
PROVIDERS: PCP Nurse Practitioner Family; Visit Provider Internal Medicine Endocrinology, Diabetes & Metabolism
DX: E87.6 Hypokalemia (principal); N64.4 Mastodynia; Z71.2 Person consulting for explanation of examination or test findings; Z85.850 Personal history of malignant neoplasm of thyroid
CPT/HCPCS: 36415; 80048; 84439; 84443; 99212

== ENCOUNTER 2023-12-29 10:08 | Outpatient (AMB) | payer OTHER, SELFPAY ==
--- NOTE | 2023-12-29 10:11 | A.OFFVIS_ITS ---
Vital Signs 12/29/23 10:15 Height 5 ft 3 in Weight 171 lb 15.369 oz BMI 30.5 BP 118/76 Intake Visit Reasons: Breast follow up Manager Of Data Required: Yes Manager Of Data Language: Print Cutter Name: Diana RAMIREZ Information Interpreted: non-clinical & clinical Accompanied by: Self / Same As Patient Allergies Sulfa (Sulfonamide Antibiotics) [SULFA (SULFONAMIDE ANTIBIOTICS)] Allergy (Intermediate, Verified 12/29/23 10:16) HIVES aspirin [ASPIRIN] Adverse Reaction (Intermediate, Verified 12/29/23 10:16) ABD PAIN morphine [MORPHINE] Adverse Reaction (Intermediate, Verified 12/29/23 10:16) ABD PAIN almond Allergy (Severe, Uncoded 12/29/23 10:16) Stomack pain Lactose intollerance Allergy (Severe, Uncoded 12/29/23 10:16) Stomach pain, nausceau Post menopausal: Yes HPI Comments Details: Patient is here to discuss her test results for breast mammogram and ultrasound completed in April 2023. She complains of right breast pain. She denies any injury, previous surgeries or biopsies to the area. She denies any nipple discharge. Family history of paternal grandmother with breast cancer. [facility] Medical History (Updated 12/15/23 @ 13:25 by Murray Martinez MD) Hypokalemia Breast pain, right Allergies Migraines Renal calculi Bipolar disorder Chronic abdominal pain Osteoporosis Hyperparathyroidism Multinodular thyroid Depression Fibromyalgia Thrombocytosis Leukocytosis GERD (gastroesophageal reflux disease) Thyroid cancer PONV (postoperative nausea and vomiting) Elevated cholesterol Difficulty swallowing Vitamin D deficiency Anxiety Pulmonary nodule Asthma HTN (hypertension) Surgical History Hx of thyroidectomy H/O esophagogastroduodenoscopy H/O colonoscopy History of bilateral oophorectomy Hx of cholecystectomy S/P excision of lipoma History of total abdominal hysterectomy Hx of appendectomy Family History Father Diabetes mellitus Skin cancer Prostate cancer Mother HTN (hypertension) High cholesterol Mental health disorder Maternal Grandfather Myocardial infarction Maternal Grandmother No problems noted. Paternal Grandfather No problems noted. 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) Alcohol intake: never Patient Tobacco Use Status: Current everyday Tobacco user Tobacco use type: Cigarette Cigarettes Per Day: 5 Years Smoked: 20 e-Cigarette/Vaping Use: Never Used Second Hand Smoke Exposure: No Advance Directives Date on File: 10/11/16 service: No Current occupational status: disabled Sexual orientation: Straight/Heterosexual Gender identity: Female Cognitive needs: No Hearing needs: No Vision needs: No Review of Systems Const All systems reviewed & are unremarkable except as noted in HPI and below Reports no additional complaints Skin/Breast Reports system reviewed and no additional complaints, except as documented and Reports as per HPI Physical Exam Vital Signs: Last Vital Signs BP 118/76 12/29/23 10:15 BMI result Body Mass Index 30.5 Const General: cooperative, healthy appearing and no acute distress Chest Other: Patient experience pain with palpation the right breast medial aspect had 4 to 5 o'clock position Breast/axilla inspection: normal inspection of the breasts and normal inspection of the axillae Breast/axilla palpation: normal palpation of the breasts Skin General skin exam: no rashes or lesions noted Assessment & Plan Assessment & Plan (1) Breast pain, right: Code(s): N64.4 - Mastodynia Category: Medical (2) Encounter to discuss test results: Code(s): Z71.2 - Person consulting for explanation of examination or test findings Plan Plan referral to see a breast surgeon for further evaluation of persistent breast pain. Family history of breast cancer paternal grandmother. All of her questions and concerns were addressed to the best of my ability. She is agreeable to the plan of care. This note is constructed using voice recognition software. While every effort has been made to ensure accuracy, business office specialist errors may have been included. Orders: Referrals Breast Surgery Referral N64.4 - Mastodynia Coding Level of Care Code Est Pt Level 3 (64222) Diagnoses Breast pain, right N64.4 Encounter to discuss test results Z71.2
[2023-12-29 10:15] VITALS: BP 118/76; BMI 30.5
== END 2023-12-29 10:41 | disposition home or self-care (01) ==
PROVIDERS: PCP Nurse Practitioner Family; Visit Provider Advanced Practice Midwife
DX: N64.4 Mastodynia (principal); Z71.2 Person consulting for explanation of examination or test findings
CPT/HCPCS: 99213

== ENCOUNTER 2024-01-01 08:20 | Outpatient (AMB) | payer OTHER, SELFPAY ==
[2024-01-01 08:33] VITALS: BP 120/82; BMI 31.5
--- NOTE | 2024-01-01 08:33 | MHC.OFFVIS ---
Vital Signs 01/01/24 08:33 Height 5 ft 3 in Weight 177 lb 11.081 oz BMI 31.5 BP 120/82 Blood Pressure Location Lt brachial Position Sitting Intake Visit Reasons: Thyroid cancer / osteoporosis Intake Note: Patient presents today for Thyroid Cancer and Osteoporosis follow up. Cma Or Lpn Required: Yes Cma Or Lpn Language: Manager Trading Name: Kerry Information Interpreted: non-clinical & clinical Accompanied by: Self / Same As Patient Allergies Sulfa (Sulfonamide Antibiotics) [SULFA (SULFONAMIDE ANTIBIOTICS)] Allergy (Intermediate, Verified 01/01/24 08:38) HIVES aspirin [ASPIRIN] Adverse Reaction (Intermediate, Verified 01/01/24 08:38) ABD PAIN morphine [MORPHINE] Adverse Reaction (Intermediate, Verified 01/01/24 08:38) ABD PAIN almond Allergy (Severe, Uncoded 01/01/24 08:38) Stomack pain Lactose intollerance Allergy (Severe, Uncoded 01/01/24 08:38) Stomach pain, nausceau HPI Comments Details: 58 year-old female with past medical history nontoxic multinodular goiter who is seen in follow-up today for papillary thyroid microcarcinoma and hyperparathyroidism. The patient was seen initially by for 3.2 cm left-sided thyroid lobe nodule and underwent FNA with benign cytology. She complained of compressive symptoms in this was referred to Dr. Hennessy for surgical thyroidectomy. She also was found to have laboratory evidence of primary hyperparathyroidism. She underwent left hemithyroidectomy with bilateral inferior parathyroidectomy on 01/15/2019. Her thyroid surgical pathology revealed papillary microcarcinoma of the thyroid, 0.4 cm, unifocal, no angio invasion or lymphatic invasion, no extrathyroidal extension. PT1a pNX. No additional treatment was recommended. Surgical pathology from her parathyroid glands revealed a right inferior parathyroid to have normocellular pathology, and the left inferior parathyroid gland to be hypercellular. The right inferior parathyroid weight 200 mg with the left inferior parathyroid weighing 160 mg. Immediate postoperative PTH was 23. No intraoperative PTH was assessed. She did initially request completion thyroidectomy, but after consultation with Dr. Hennessy she has decided against this and wishes to instead proceed with yearly surveillance of her R sided thyroid nodules. She continued to complain of symptoms of body aches and abdominal pain. She was also complaining of the sensation of swelling in her neck. Labs were repeated and were largely unchanged. Calcium remained high normal. It was thought that when corrected for Albumin her Calcium was WNL. 24 hour urine calcium was WNL. Her thyroid US revealed interval growth of a nodule on in the R lobe, and a newly identified complex cystic subcentimeter nodule within the R lobe. She underwent FNA biopsy of this R sided nodule 04/23/2020 with benign cytology. Recent labs reveal hypokalemia and elevated LFTs. Her Atorvastatin was stopped by her PCP, and she was started on Potassium supplements. She was worked up for hyperaldosteronism, and labs were not consistent with this with an elevated renin level. She had a repeat DEXA which shows worsening in the spine, but stability in hip and distal forearm. Thyroid US: 05/27/2021 Right Thyroid Lobe: 5.5 x 2.2 x 2.4 cm, volume 15.2 mL. Previously 5.5 x 2.2 x 2.4 cm, volume 15.2 mL. Parenchyma: The gland echotexture is homogeneous. Thyroid vascularity is increased. Left Thyroid Lobe: Surgically absent. Isthmus: 0.3 cm in maximum AP dimension. Previously 0.2 cm. Estimated total number of nodules greater than or equal to 1 cm: 0. [employer] nodules are described as follows: 1.? Location: Right mid lateral. ?? ? Size: 0.9 x 0.5 x 0.7 cm, volume 0.16 mL. ?? ? Previously: 1.0 x 0.7 x 0.6 cm, volume 0.22 mL. ?? ? Nodule characteristics: ?? ? Composition: Solid (2). ?? ? Echogenicity: Hypoechoic (2). ?? ? Shape: Not taller than wide (0). ?? ? Margins: Smooth (0). ?? ? Echogenic Foci: None (0). ? ACR TI-RADS total points: 4 ?? ? ACR TI-RADS category: 4 ? Significant change in size (>/= 20% in 2 dimensions and minimal increase of 2 mm or 50% or greater increase in volume): No ?? ? Change in features: No ?? ? Change in ACR TI-RADS risk category: No 2.? Location: Right inferior. ?? ? Size: 0.4 x 0.4 x 0.5 cm, volume 0.04 mL. ?? ? Previously: New since the prior study. ?? ? Nodule characteristics: ?? ? Composition: Cystic(0). ?? ? ACR TI-RADS total points: 0 ?? ? ACR TI-RADS category: 1 ?? ? 3.? Location: Right inferior. ?? ? Size: 0.5 x 0.3 x 0.3 cm, volume 0.02 mL. ?? ? Previously: 0.3 x 0.3 x 0.4 cm, volume 0.02 mL. ?? ? Nodule characteristics: ?? ? Composition: Cystic(0). ?? ? ACR TI-RADS total points: 0 ?? ? ACR TI-RADS category: 1 ? Significant change in size (>/= 20% in 2 dimensions and minimal increase of 2 mm or 50% or greater increase in volume): ?? ? Change in features: ?? ? Change in ACR TI-RADS risk category: NODES: No lymphadenopathy is seen in the tissue surrounding the thyroid gland. DEXA: 08/19/2021 FINDINGS: AP SPINE L1-L4: Current: BMD 0.801 g/cm2, Z-score -2.6, T-score -3.2, osteoporosis, 6.5% decrease from baseline (<5% change is not significant). Baseline: BMD 0.857 g/cm2. LEFT FEMUR, NECK: Current: BMD 0.821 g/cm2, Z-score -0.7, T-score -1.6, osteopenia. Baseline: BMD 0.845 g/cm2. LEFT FEMUR, TOTAL: Current: BMD 0.911 g/cm2, Z-score -0.3, T-score -0.8, normal, 0.0% no change from baseline (<5% change is not significant). Baseline: BMD 0.911 g/cm2. LEFT FOREARM RADIUS 33%: BMD 0.721 g/cm2, Z-score -1.4, T-score -1.8, osteopenia, 0.8% decrease from baseline (<5% change is not significant). Baseline: BMD 0.727 g/cm2. Labs: Took alendronate 3-4 mos and had pain in body and had to stop. Off for >1 yr [facility] Medical History (Updated 12/15/23 @ 13:25 by Murray Martinez MD) Hypokalemia Breast pain, right Allergies Migraines Renal calculi Bipolar disorder Chronic abdominal pain Osteoporosis Hyperparathyroidism Multinodular thyroid Depression Fibromyalgia Thrombocytosis Leukocytosis GERD (gastroesophageal reflux disease) Thyroid cancer PONV (postoperative nausea and vomiting) Elevated cholesterol Difficulty swallowing Vitamin D deficiency Anxiety Pulmonary nodule Asthma HTN (hypertension) Surgical History Hx of thyroidectomy H/O esophagogastroduodenoscopy H/O colonoscopy History of bilateral oophorectomy Hx of cholecystectomy S/P excision of lipoma History of total abdominal hysterectomy Hx of appendectomy Family History Father Diabetes mellitus Skin cancer Prostate cancer Mother HTN (hypertension) High cholesterol Mental health disorder Maternal Grandfather Myocardial infarction Maternal Grandmother No problems noted. Paternal Grandfather No problems noted. 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 There are no cervical adenopathy palpated Assessment & Plan Assessment & Plan (1) History of thyroid cancer: Code(s): Z85.850 - Personal history of malignant neoplasm of thyroid Category: Medical Plan: This is a 58-year-old female with a history of micro papillary thyroid cancer status post left hemithyroidectomy. Right lobe is a presence of subcentimeter nodules. She appears to be clinically and biochemically euthyroid. Recent ultrasound shows stability in the size of the nodules Plan is for continued observation. Will repeat thyroid US (2) Osteoporosis: Code(s): M81.0 - Age-related osteoporosis without current pathological fracture Category: Medical Plan: Status post parathyroidectomy with DEXA bone density 2 years ago showing significant osteoporosis in the spine. Secondary workup was otherwise negative. Repeat DEXA shows [id number] osteoporosis of lumbar spine Will consider use either anabolic agent like Evenity, Tymlos or Forteo followed by anti resorptive agent like Prolia which have the most benefit in this patient with high risk of fracture. Patient previously was intolerant to bisphosphonate . Would prefer to use Evenity in light of previous history of hyperparathyroidism (3) Hypokalemia: Code(s): E87.6 - Hypokalemia Category: Medical Plan: Patient has significant hypokalemia. Previous workup showed normal renin and aldosterone levels. I took the liberty of referring this patient to Dr. Garcia of Nephrology for further workup and treatment Orders: Orders US thyroid Today E04.2 - Nontoxic multinodular goiter Coding Level of Care Code Est Pt Level 3 (02878) Diagnoses History of thyroid cancer Z85.850 Osteoporosis M81.0 Hypokalemia E87.6
== END 2024-01-01 09:11 | disposition home or self-care (01) ==
PROVIDERS: PCP Nurse Practitioner Family; Visit Provider Internal Medicine Endocrinology, Diabetes & Metabolism
DX: Z85.850 Personal history of malignant neoplasm of thyroid (principal); M81.0 Age-related osteoporosis without current pathological fracture; E87.6 Hypokalemia
CPT/HCPCS: 99213

== ENCOUNTER → 2024-01-01 08:20 | Outpatient (BNVA) | payer OTHER, SELFPAY | PROVIDERS: PCP Nurse Practitioner Family; Visit Provider Internal Medicine Endocrinology, Diabetes & Metabolism | DX: M81.0 Age-related osteoporosis without current pathological fracture (principal); E87.6 Hypokalemia; E04.2 Nontoxic multinodular goiter; Z85.850 Personal history of malignant neoplasm of thyroid | CPT/HCPCS: 99212 ==

== ENCOUNTER 2024-01-10 08:07 | Outpatient (AMB) | payer OTHER, SELFPAY ==
--- NOTE | 2024-01-10 08:26 | MHC.OFFVIS ---
Vital Signs 01/10/24 08:33 Height 5 ft 3 in Weight 175 lb BMI 31.0 Intake Visit Reasons: mastodynia Intake Note: This patient presents for an assessment for an assessment for Mastodynia. Patient c/o; reports left breast pain, reports felt a painful mass on the right mass, reports had nipple discharge in the past. Firmware Engineer Required: Yes Firmware Engineer Language: Insert Molding Operator Name: Jean Claude Information Interpreted: non-clinical & clinical Accompanied by: Self / Same As Patient Allergies Sulfa (Sulfonamide Antibiotics) [SULFA (SULFONAMIDE ANTIBIOTICS)] Allergy (Intermediate, Verified 01/01/24 08:38) HIVES aspirin [ASPIRIN] Adverse Reaction (Intermediate, Verified 01/01/24 08:38) ABD PAIN morphine [MORPHINE] Adverse Reaction (Intermediate, Verified 01/01/24 08:38) ABD PAIN almond Allergy (Severe, Uncoded 01/01/24 08:38) Stomack pain Lactose intollerance Allergy (Severe, Uncoded 01/01/24 08:38) Stomach pain, nausceau Medication List - Last Reconciled 01/10/24 by New Vu MD albuterol sulfate mg inhalation amitriptyline 50 mg (2 x 25 mg) PO BEDTIME 30 days amoxicillin-pot clavulanate 875-125 mg 1 tab PO BID 10 days azelastine 1 spray intranasal BID beclomethasone dipropionate 80 mcg/actuation (Qvar RediHaler) 1 inh inhalation BID 30 days cholecalciferol (vitamin D3) 25 mcg PO DAILY clonazepam 1 mg PO DAILY clonazepam 1 mg PO BEDTIME PRN diclofenac sodium 50 mg PO BID PRN diclofenac sodium 1% 2 grams topical BID PRN NS famotidine (Pepcid) 40 mg PO BEDTIME fluvoxamine 100 mg PO BID gabapentin 600 mg PO TID gabapentin 100 mg PO TID galcanezumab-gnlm (Emgality Pen) 120 mg subcut ONCE 30 days hydrocortisone 2.5% 1 appl PA BID-QID hydrocortisone acetate (Anusol-HC) 25 mg PA BID hydrocortisone valerate 0.2% 1 appl topical BID PRN 30 days hydroxyzine pamoate 75 mg PO TID PRN loratadine 10 mg PO DAILY memantine mg PO montelukast 10 mg PO BEDTIME multivitamin with folic acid 400 mcg (Daily-Laxmi (with folic acid)) 1 tab PO DAILY multivitamin with minerals (Multiple Vitamin-Minerals tablet) 1 tab PO DAILY omega-3 acid ethyl esters 1 cap PO BID 90 days omeprazole 40 mg PO DAILY ondansetron 8 mg PO Q8H PRN polyethylene glycol 3350 (Gavilax) 17 grams PO DAILY potassium chloride ER 40 mEq (4 x 10 mEq) PO DAILY 90 days pravastatin 10 mg PO BEDTIME prazosin 2 mg PO BEDTIME rizatriptan 5 - 10 mg (0.5 - 1 x 10 mg) PO Q2H PRN 21 days romosozumab-aqqg (Evenity) 210 mg (2.34 mL) subcut .qmonthly sennosides (Senna Laxative) 17.2 mg (2 x 8.6 mg) PO BEDTIME PRN spironolactone 12.5 mg (1/2 x 25 mg) PO DAILY tizanidine 4 mg PO BID PRN 14 days ubrogepant (Ubrelvy) 50 - 100 mg (0.5 - 1 x 100 mg) PO ONCE PRN 30 days HPI HPI mastodynia: Details: 58 year female referred because of breast pain. She says that for the past 2 weeks she has been having sharp breast pain which started on the right side. Now she says she has this on both sides. She denies any breast or nipple discharge on his skin changes. Her last mammogram was last April, and this was unremarkable Her menarche was at the age of 15. She has never been . She had hysterectomy and bilateral salpingo-oophorectomy at age of 51 for what she describes as precancerous lesions She denies any palpable breast masses. She denies any family history of breast cancer. [facility] Medical History (Updated 01/10/24 @ 09:02 by New Vu MD) Breast pain Hypokalemia Breast pain, right Allergies Migraines Renal calculi Bipolar disorder Chronic abdominal pain Osteoporosis Hyperparathyroidism Multinodular thyroid Depression Fibromyalgia Thrombocytosis Leukocytosis GERD (gastroesophageal reflux disease) Thyroid cancer PONV (postoperative nausea and vomiting) Elevated cholesterol Difficulty swallowing Vitamin D deficiency Anxiety Pulmonary nodule Asthma HTN (hypertension) Surgical History Hx of thyroidectomy H/O esophagogastroduodenoscopy H/O colonoscopy History of bilateral oophorectomy Hx of cholecystectomy S/P excision of lipoma History of total abdominal hysterectomy Hx of appendectomy Family History Father Diabetes mellitus Skin cancer Prostate cancer Mother HTN (hypertension) High cholesterol Mental health disorder Maternal Grandfather Myocardial infarction Maternal Grandmother No problems noted. Paternal Grandfather No problems noted. 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) Alcohol intake: never Patient Tobacco Use Status: Current everyday Tobacco user Tobacco use type: Cigarette Cigarettes Per Day: 5 Years Smoked: 20 e-Cigarette/Vaping Use: Never Used Second Hand Smoke Exposure: No Advance Directives Date on File: 10/11/16 service: No Current occupational status: disabled Sexual orientation: Straight/Heterosexual Gender identity: Female Cognitive needs: No Hearing needs: No Vision needs: No Review of Systems Const Denies chills and Denies fever(s) Card Denies chest pain, Denies dyspnea and Denies dyspnea on exertion Resp Denies cough, Denies dyspnea and Denies dyspnea on exertion GI Denies hematochezia and Denies change in bowel habits Denies hematuria Musc Denies back pain and Denies limited range of motion Neuro Denies focal weakness and Denies convulsions Psych Denies depression and Denies mood swings Physical Exam Vital Signs: BMI result Body Mass Index 31.0 Const Other: Appears overweight General: comfortable and no acute distress Orientation/consciousness: patient oriented x3 Neck Neck: Yes no lymphadenopathy Chest Other: No palpable breast masses, no nipple or skin changes, no axillary lymphadenopathy, has diffuse tenderness on the breasts on both the left and right side Resp Auscultation: clear to auscultation bilaterally Cardio Rhythm: regular rhythm GI Palpation (GI): Soft to palpation, nontender and no guarding Neuro General: patient oriented x3 Assessment & Plan Assessment & Plan (1) Breast pain: Code(s): N64.4 - Mastodynia Category: Medical Plan: She has bilateral breast pain. Physical exam does not reveal any breast masses or any nipple or skin changes. Her last mammogram in April, was unremarkable. I assured her about my above findings. I explained to her that often times, mastodynia is self-limited. However, she is anxious about this so I will order to have her mammogram date advanced because of her breast pain. I will see her in the office thereafter. She is comfortable with the plan. She does not seem to be a at above average risk for breast cancer. Coding Level of Care Code New Pt Level 3 (17767) Diagnoses Breast pain N64.4
[2024-01-10 08:33] VITALS: BMI 31.0
== END 2024-01-10 09:00 | disposition home or self-care (01) ==
PROVIDERS: PCP Nurse Practitioner Family; Referring Provider Nurse Practitioner Family; Visit Provider Surgery
DX: N64.4 Mastodynia (principal)
CPT/HCPCS: 99203

== ENCOUNTER → 2024-01-10 08:07 | Outpatient (BNVA) | payer OTHER, SELFPAY | PROVIDERS: PCP Nurse Practitioner Family; Referring Provider Nurse Practitioner Family; Visit Provider Surgery | DX: N64.4 Mastodynia (principal) | CPT/HCPCS: 99202 ==

== ENCOUNTER 2024-01-15 13:37 | Outpatient (AMB) | payer OTHER, SELFPAY ==
[2024-01-15 13:42] VITALS: BP 116/84; PULSE 101; O2SAT 98; BMI 31.0
--- NOTE | 2024-01-15 13:42 | HO.NEPHOV ---
Vital Signs 01/15/24 13:42 Height 5 ft 3 in Weight 175 lb BMI 31.0 BP 116/84 Blood Pressure Location Rt brachial Position Sitting Pulse 101 H Pulse Source Pulse Oximeter Pulse Oximetry (%) 98 Oxygen Delivery Method Room Air Intake Visit Reasons: Hypokalemia/ 3 weeks fu/ Confirmed Mortgage Manager Required: Yes Mortgage Manager Name: Juancarlos [id number] Accompanied by: Self / Same As Patient Allergies Sulfa (Sulfonamide Antibiotics) [SULFA (SULFONAMIDE ANTIBIOTICS)] Allergy (Intermediate, Verified 01/15/24 13:45) HIVES aspirin [ASPIRIN] Adverse Reaction (Intermediate, Verified 01/15/24 13:45) ABD PAIN morphine [MORPHINE] Adverse Reaction (Intermediate, Verified 01/15/24 13:45) ABD PAIN almond Allergy (Severe, Uncoded 01/01/24 08:38) Stomack pain Lactose intollerance Allergy (Severe, Uncoded 01/01/24 08:38) Stomach pain, nausceau HPI Comments Details: 58-year-old female with an extensive medical history includes asthma, depression, bipolar disorder, hyperlipidemia, fibromyalgia, GERD, migraine, hyperthyroidism, thyroid cancer status post thyroidectomy, She has been referred for hypokalemia 2 years ago she had hypokalemia which was corrected. Recently she has had persistent hypokalemia. Potassium was in the low 2s. She was on chlorthalidone 25 mg a day. This was decreased to 12.5 mg and subsequently discontinued 3 weeks ago. The recent potassium was 4.4 millimoles per L on September 21. Serum chloride and bicarb levels were normal no alkalosis. Renal function has also been normal. She denies any polyuria or polydipsia. No history of any diarrhea. There is history of constipation. Currently she is on 8 tablets of potassium chloride. Of note she says not on diuretics at this time. However, daughter gave her some natural diuretics for edema She is on high dose of Amlodipine -10mg 12/25/23 c/o Cramps K was low KCL increased to 10 mg Not of diuretics Has leg edema - on Amlodipine 5 mg QD Urine K was high CTA - NO MAGDALENA 01/15/24 Feels better Edema resolved NO more cramps PFSH Medical History (Updated 01/10/24 @ 09:02 by New Vu MD) Breast pain Hypokalemia Breast pain, right Allergies Migraines Renal calculi Bipolar disorder Chronic abdominal pain Osteoporosis Hyperparathyroidism Multinodular thyroid Depression Fibromyalgia Thrombocytosis Leukocytosis GERD (gastroesophageal reflux disease) Thyroid cancer PONV (postoperative nausea and vomiting) Elevated cholesterol Difficulty swallowing Vitamin D deficiency Anxiety Pulmonary nodule Asthma HTN (hypertension) Surgical History Hx of thyroidectomy H/O esophagogastroduodenoscopy H/O colonoscopy History of bilateral oophorectomy Hx of cholecystectomy S/P excision of lipoma History of total abdominal hysterectomy Hx of appendectomy Family History Father Diabetes mellitus Skin cancer Prostate cancer Mother HTN (hypertension) High cholesterol Mental health disorder Maternal Grandfather Myocardial infarction Maternal Grandmother No problems noted. Paternal Grandfather No problems noted. 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) Alcohol intake: never Patient Tobacco Use Status: Current everyday Tobacco user Tobacco use type: Cigarette Cigarettes Per Day: 5 Years Smoked: 20 e-Cigarette/Vaping Use: Never Used Second Hand Smoke Exposure: No Advance Directives Date on File: 10/11/16 service: No Current occupational status: disabled Sexual orientation: Straight/Heterosexual Gender identity: Female Cognitive needs: No Hearing needs: No Vision needs: No Physical Exam Vital Signs: Last Vital Signs Pulse 101 H 01/15/24 13:42 BP 116/84 01/15/24 13:42 Pulse Ox 98 01/15/24 13:42 Oxygen Delivery Method Room Air 01/15/24 13:42 BMI result Body Mass Index 31.0 Const General: cooperative and no acute distress Orientation/consciousness: patient oriented x3 Resp Effort & Inspection: normal respiratory effort and able to speak in complete sentences Neuro General: patient oriented x3 Cognition (Neuro): normal cognition Psych Appearance: grossly normal Mental Status: mental status grossly normal Speech and movement: Normal speech and movement present Affect: normal affect Attitude: cooperative Results Reviewed Nephrology Results: Sodium 140 mmol/L (135-145) 12/29/23 Potassium 4.8 mmol/L (3.3-5.1) 12/29/23 Chloride 106 mmol/L (96-108) 12/29/23 Carbon Dioxide 27 mmol/L (22-29) 12/29/23 BUN 9 mg/dL (9-16) 12/29/23 Creatinine 0.68 mg/dL (0.5-1.4) 12/29/23 Calcium 9.4 mg/dL (8.4-10.2) 12/29/23 Urine Creatinine 182.58 mg/dL 12/22/23 Assessment & Plan Assessment & Plan (1) Hypokalemia: Code(s): E87.6 - Hypokalemia Category: Medical (2) HTN (hypertension): Code(s): I10 - Essential (primary) hypertension Category: Medical Plan Middle-aged woman with multiple medical problems comes in with significant hypokalemia. Initially she was on chlorthalidone with potassium supplementation. However after lowering chlorthalidone potassium was still significantly low. Currently she is on 100 mEq of potassium supplementation. No alkalosis. She does have hypertension. In the past she had plasma renin and aldosterone levels which were all in the normal range. Serum Aldosterone was 19 and plasma renin was elevated at 14 Causes include diuretic use, No evidence of renin producing tumor, or renal artery stenosis , based on CT SCAN AVOID chlorthalidone Due to edema , I will STOPPED Amlodipine. Edema improved Keep Spironolactone 12.5 mg DAILY and watch K Will decrease KCL from 10 tabs to 8 tabs and recheck If hypokalemia persists , would obtain a diuretic screen Orders: Orders Basic Metabolic Panel 10 Months E87.6 - Hypokalemia, I10 - Essential (primary) hypertension Coding Level of Care Code Est Pt Level 4 (79087) Diagnoses Hypokalemia E87.6 HTN (hypertension) I10
== END 2024-01-15 14:01 | disposition home or self-care (01) ==
PROVIDERS: PCP Nurse Practitioner Family; Visit Provider Internal Medicine Hypertension Specialist
DX: E87.6 Hypokalemia (principal); I10 Essential (primary) hypertension
CPT/HCPCS: 99214

== ENCOUNTER → 2024-01-15 13:37 | Outpatient (BNVA) | payer OTHER, SELFPAY | PROVIDERS: PCP Nurse Practitioner Family; Visit Provider Internal Medicine Hypertension Specialist | DX: E87.6 Hypokalemia (principal); I10 Essential (primary) hypertension | CPT/HCPCS: 99212 ==

== ENCOUNTER 2024-01-16 13:26 | Outpatient (AMB) | payer OTHER, SELFPAY ==
--- NOTE | 2024-01-16 13:27 | MHC.OFFVIS ---
Vital Signs 01/16/24 13:43 Height 5 ft 3 in Weight 174 lb 2.643 oz BMI 30.8 BP 116/70 Blood Pressure Location Rt brachial Position Sitting Pulse 96 Pulse Source Pulse Oximeter Pulse Oximetry (%) 98 Oxygen Delivery Method Room Air Intake Visit Reasons: fm, pos troy/CM Intake Note: Patient last seen 08/14/[address] Landa, presents today for fibromyalgia and +TROY follow up. Patient reports multiple trigger fingers as well as tisha wrist pain that has worsened. Patient also shared recent episode of feet swelling and pain. Health Education Specialist Required: Yes Health Education Specialist Language: Pellet Preparation Operator Name: Nuha [id number] Accompanied by: Self / Same As Patient Allergies Sulfa (Sulfonamide Antibiotics) [SULFA (SULFONAMIDE ANTIBIOTICS)] Allergy (Intermediate, Verified 02/09/24 08:42) HIVES aspirin [ASPIRIN] Adverse Reaction (Intermediate, Verified 02/09/24 08:42) ABD PAIN morphine [MORPHINE] Adverse Reaction (Intermediate, Verified 02/09/24 08:42) ABD PAIN almond Allergy (Severe, Uncoded 02/09/24 08:42) Stomack pain Lactose intollerance Allergy (Severe, Uncoded 02/09/24 08:42) Stomach pain, nausceau HPI Comments Details: This patient with fibromyalgia presents for further evaluation. The [employer] translation service is used. She again describes her pain as being over the whole body. She feels it is in muscles, bones and joints. Even the skin is tender at times. She is on 600 t.i.d. of gabapentin which was increased by her primary doctor. She also takes tizanidine if needed 4 mg b.i.d., topical diclofenac gel and oral tried diclofenac fluvoxamine, and Seroquel. Headaches continue to plague her as well. She becomes tearful describing all her symptoms. --plantar pain and tendeness started last week, hard to walk. now pain has transferred up to leg into hip and groin. --knee instability to left caused her to fall - started in Jun 2023 --PT not helpful, cannot tolerate being touched, shoulder injection not helpful [facility] Medical History Chronic radicular pain of lower back Foot pain, bilateral Joint pain in both hands Breast pain Hypokalemia Breast pain, right Allergies Migraines Renal calculi Bipolar disorder Chronic abdominal pain Osteoporosis Hyperparathyroidism Multinodular thyroid Depression Fibromyalgia Thrombocytosis Leukocytosis GERD (gastroesophageal reflux disease) Thyroid cancer PONV (postoperative nausea and vomiting) Elevated cholesterol Difficulty swallowing Vitamin D deficiency Anxiety Pulmonary nodule Asthma HTN (hypertension) Surgical History Hx of thyroidectomy H/O esophagogastroduodenoscopy H/O colonoscopy History of bilateral oophorectomy Hx of cholecystectomy S/P excision of lipoma History of total abdominal hysterectomy Hx of appendectomy Family History Father Diabetes mellitus Skin cancer Prostate cancer Mother HTN (hypertension) High cholesterol Mental health disorder Maternal Grandfather Myocardial infarction Maternal Grandmother No problems noted. Paternal Grandfather No problems noted. 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) Alcohol intake: never Patient Tobacco Use Status: Current everyday Tobacco user Tobacco use type: Cigarette Cigarettes Per Day: 5 Years Smoked: 20 e-Cigarette/Vaping Use: Never Used Second Hand Smoke Exposure: No Advance Directives Date on File: 10/11/16 service: No Current occupational status: disabled Sexual orientation: Straight/Heterosexual Gender identity: Female Cognitive needs: No Hearing needs: No Vision needs: No Review of Systems Const All systems reviewed & are unremarkable except as noted in HPI and below Physical Exam Vital Signs: Last Vital Signs Pulse 96 01/16/24 13:43 BP 116/70 01/16/24 13:43 Pulse Ox 98 01/16/24 13:43 Oxygen Delivery Method Room Air 01/16/24 13:43 BMI result Body Mass Index 30.8 APPEARANCE: Patient in no acute distress EYES no redness, pupils equal and reactive to light, eyelids normal. No temporal artery tenderness, redness or swelling. EXTREMITIES: No edema, no calf tenderness, normal peripheral pulses. NEURO: Oriented and alert x3. No focal weakness. Reflexes symmetric. Gait normal. SKIN: No inflammatory or neoplastic lesions. Normal color and turgor JOINT EXAM:.?? Cervical Spine:.? Mild pain?with extremes of normal range of motion.? There is bilateral posterior cervical muscle and trapezial muscle tenderness. Thoracic Spine:.? No scoliosis.? No tenderness on palpation. Lumbar Spine:.? Alignment normal.? Full range of motion with mild pain at the extremes of normal range of motion and some mild lumbar muscle tenderness. Chest Wall:.? No tenderness, swelling, increased warmth or erythema. Hands:.? Normal pain-free range of motion.? There is rather diffuse tenderness in the joints and spaces between joints but no, swelling, increased warmth or erythema.? No sensory loss or thenar atrophy. Wrists:.? Normal pain-free range of motion with mild bilateral tenderness but no swelling,increased warmth or erythema. Elbows:. Normal pain-free range of motion without tenderness, swelling, increased warmth or erythema. Shoulders:.?? Mild pain with more than 45 degrees abduction or rotation.? Mild anterior tenderness but no swelling, increased warmth or erythema. Hips:.? Some lumbar pain with extremes of normal range of motion.? No groin pain with motion. Hip bursa:.? No tenderness. Knees:.?? Mild pain with extremes of motion.? Mild medial tenderness without patellofemoral crepitus, effusion, soft tissue swelling, increased warmth or erythema.? Ankles:.? Normal pain-free range of motion with mild tenderness but no swelling, increased warmth or erythema. Feet:.? Normal pain-free range of motion with mild tenderness across the insteps and MTP joints.? No soft tissue ? swelling, increased warmth or erythema. Tender points:? Ormi-it-[id number] tenderness to digital palpation at the occiput, trapezius, second rib, lateral epicondyle, knees, greater trochanter and gluteal area bilaterally. Assessment & Plan Assessment & Plan (1) TROY positive: Comment: 2020: 1:160, anti-DNA, ALBERT,C3 C4, SS-A,SS-B all negative Code(s): R76.8 - Other specified abnormal immunological findings in serum Category: Medical (2) Fibromyalgia: Code(s): M79.7 - Fibromyalgia Category: Medical (3) Joint pain in both hands: Code(s): M25.541 - Pain in joints of right hand; M25.542 - Pain in joints of left hand Category: Medical (4) Foot pain, bilateral: Code(s): M79.671 - Pain in right foot; M79.672 - Pain in left foot Category: Medical Plan #Fibromyalgia: She continues with descriptions of widespread pain. There is much tenderness in the skin, joints, and soft tissues. I do not see signs of an active inflammatory process. This is all consistent with fibromyalgia. There is some minimal osteoarthritis seen in the left knee x-ray. She says she has had physical therapy in the past and she has exercise sheets of home but she does he does not do them at home. I discussed with her the need to try to stay physically active. I told her that the pain was not going to be relieved by measures that we have so far undertaken but that she should try to stay physically active in order to maintain her fitness and functionality at home. 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 For now I think we could continue her medications. She was encouraged to follow through with behavioral health to see if they could adjust her medications to improve her depressive symptoms. --RX Tramadol for one month to help since just restarted that Fauzia dose. --Prednisone for tender plantar and palmar and will reassess for improvement. Follow-up in 6 months. I spent 30 minutes reviewing history, evaluating patient and documenting. Medications: New prednisone 3 tablets per day 7 days 2 tablets per day 7 days 1 tablets per day 7 days 45 tabs 0RF M25.541 - Pain in joints of right hand, M25.542 - Pain in joints of left hand, M79.671 - Pain in right foot, M79.672 - Pain in left foot tramadol 50 mg PO BID PRN 60 tabs 0RF pain M79.671 - Pain in right foot, M79.672 - Pain in left foot, M79.7 - Fibromyalgia, M54.16 - Radiculopathy, lumbar region, G89.29 - Other chronic pain Discontinued [id number] Discontinued Reason: Ancillary Entered New Order 120 mg subcut ONCE 30 days 1 mL 6RF Coding Level of Care Code Est Pt Level 4 (26027) Diagnoses TROY positive R76.8 Fibromyalgia M79.7 Joint pain in both hands M25.541; M25.542 Foot pain, bilateral M79.671; M79.672
[2024-01-16 13:43] VITALS: BP 116/70; PULSE 96; O2SAT 98; BMI 30.8
== END 2024-01-16 14:19 | disposition home or self-care (01) ==
PROVIDERS: PCP Nurse Practitioner Family; Visit Provider Nurse Practitioner Family
DX: R76.8 Other specified abnormal immunological findings in serum (principal); M79.7 Fibromyalgia; M25.541 Pain in joints of right hand; M25.542 Pain in joints of left hand; M79.671 Pain in right foot; M79.672 Pain in left foot
CPT/HCPCS: 99214

== ENCOUNTER → 2024-01-16 13:26 | Outpatient (BNVA) | payer OTHER, SELFPAY | PROVIDERS: PCP Nurse Practitioner Family; Visit Provider Nurse Practitioner Family | DX: R76.8 Other specified abnormal immunological findings in serum (principal); M79.7 Fibromyalgia; M25.541 Pain in joints of right hand; M25.542 Pain in joints of left hand; M79.671 Pain in right foot; M79.672 Pain in left foot | CPT/HCPCS: 99212 ==

== ENCOUNTER 2024-02-03 09:02 | Outpatient (REF) | payer OTHER, SELFPAY ==
[2024-02-03 10:21] LABS: Anion Gap 12 (12-20); Blood Urea Nitrogen 10 mg/dL (9-16); Calcium 9.3 mg/dL (8.4-10.2); Carbon Dioxide 23 mmol/L (22-29); Chloride 108 mmol/L (96-108); Estimated Glomerular Filt Rate > 60; Glucose Random 190 mg/dL (60-115); Potassium 4.3 mmol/L (3.3-5.1); Sodium 139 mmol/L (135-145)
== END 2024-02-03 09:03 | disposition home or self-care (01) ==
LOC: HO.LAB 09:02
PROVIDERS: PCP Nurse Practitioner Family; Visit Provider Internal Medicine Hypertension Specialist
DX: I10 Essential (primary) hypertension (principal); E87.6 Hypokalemia
CPT/HCPCS: 36415; 80048

== ENCOUNTER 2024-02-09 08:29 | Outpatient (AMB) | payer OTHER, SELFPAY ==
[2024-02-09 08:34] VITALS: BP 140/76; PULSE 102; BMI 30.8
--- NOTE | 2024-02-09 08:34 | A.OFFVIS_ITS ---
Vital Signs 02/09/24 08:34 Height 5 ft 3 in Weight 174 lb 2.643 oz BMI 30.8 BP 140/76 H Blood Pressure Location Lt brachial Position Sitting Pulse 102 H Intake Visit Reasons: 4 month follow up Intake Note: Kita presents in the office as a 4 month follow up. CC: She states that she is not having any new concerns but she does have a migraine today. [employer] Cradle And Dolly Required: Yes Carpenter Cradle And Dolly Name: [id number] Karey Allergies Sulfa (Sulfonamide Antibiotics) [SULFA (SULFONAMIDE ANTIBIOTICS)] Allergy (Intermediate, Verified 02/09/24 08:42) HIVES aspirin [ASPIRIN] Adverse Reaction (Intermediate, Verified 02/09/24 08:42) ABD PAIN morphine [MORPHINE] Adverse Reaction (Intermediate, Verified 02/09/24 08:42) ABD PAIN almond Allergy (Severe, Uncoded 02/09/24 08:42) Stomack pain Lactose intollerance Allergy (Severe, Uncoded 02/09/24 08:42) Stomach pain, nausceau HPI HPI 4 month follow up: Details: 58 yr old f with asthma, fibromyalgia, HTN, constipation, hyperparathyroidism, hemithyroidectomy and headaches being seen for f/u RECAP: she has mild raised abn LFT, mild raised Sm musc ab, nml IgG level she had issues wt abdominal pain, chronic EGD/colo -- hiatal hernia, schatzki ring, polyps, and int hemorrhoids rept colo 5 yrs GES- v abnormal 60% --01/2023 INTERIM: she has ongoing bouts of nausea, reflux and satiety her fibromylagia is also acting up she is also taking elavil 50 mg at night she started tramdaol 2 weeks ago for her body aches no diarrhea or constipation still smokes her depression is bad -on fluvoxamine zofran helps but only takes prn EXAM: GENERAL: The patient is well developed and nontoxic. VITAL SIGNS:see workflow HEENT: Nonicteric sclerae, PERRLA, EOMI. Oropharynx clear. Moist mucous membranes. Conjunctivae appear well perfused. No thyroid mass. CHEST: Chest wall is nontender. HEART: Regular rate and rhythm without murmurs. LUNGS: Clear to auscultation bilaterally. ABDOMEN: Soft, positive bowel sounds, tender epigastric area, no organomegaly.no flank tenderness SKIN: No rash, no excessive bruising, petechiae, or purpura. NEUROLOGIC: Cranial nerves II-XII intact without motor/sensory deficit. a/P:1 early satiety, nausea and sporadic vomiting, with pos GES 60% at 4 hrs --gastroparesis may be due to her lyte abnormalities or prior hx of thyroid cancer, ROSE also been elevated in the past--she cant get reglan due to drug interaction, and motegrity due to her depression PLAN: 1/ cont with omeprazole 40 mg 2/ Gastroparesis diet as discussed before 3/ hold on vit e for the moment 4/ refer surgery for assessment for pyloroplasty for her gastroparesis [facility] Medical History Chronic radicular pain of lower back Foot pain, bilateral Joint pain in both hands Breast pain Hypokalemia Breast pain, right Allergies Migraines Renal calculi Bipolar disorder Chronic abdominal pain Osteoporosis Hyperparathyroidism Multinodular thyroid Depression Fibromyalgia Thrombocytosis Leukocytosis GERD (gastroesophageal reflux disease) Thyroid cancer PONV (postoperative nausea and vomiting) Elevated cholesterol Difficulty swallowing Vitamin D deficiency Anxiety Pulmonary nodule Asthma HTN (hypertension) Surgical History Hx of thyroidectomy H/O esophagogastroduodenoscopy H/O colonoscopy History of bilateral oophorectomy Hx of cholecystectomy S/P excision of lipoma History of total abdominal hysterectomy Hx of appendectomy Family History Father Diabetes mellitus Skin cancer Prostate cancer Mother HTN (hypertension) High cholesterol Mental health disorder Maternal Grandfather Myocardial infarction Maternal Grandmother No problems noted. Paternal Grandfather No problems noted. 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) Alcohol intake: never Patient Tobacco Use Status: Current everyday Tobacco user Tobacco use type: Cigarette Cigarettes Per Day: 5 Years Smoked: 20 e-Cigarette/Vaping Use: Never Used Second Hand Smoke Exposure: No Advance Directives Date on File: 10/11/16 service: No Current occupational status: disabled Sexual orientation: Straight/Heterosexual Gender identity: Female Cognitive needs: No Hearing needs: No Vision needs: No Physical Exam Vital Signs: Last Vital Signs Pulse 102 H 02/09/24 08:34 BP 140/76 H 02/09/24 08:34 BMI result Body Mass Index 30.8 Assessment & Plan Assessment & Plan (1) Gastroparesis: Code(s): K31.84 - Gastroparesis Category: Medical Plan: see above (2) Elevated liver enzymes: Comment: > 25 daily meds- Liver enzymes elevated, ROSE Code(s): R74.8 - Abnormal levels of other serum enzymes Category: Medical Plan as above Orders: Referrals General Surgery Referral K31.84 - Gastroparesis Medications: Changed From ondansetron 8 mg PO Q8H PRN 28 tabs 0RF for nausea/vomiting To ondansetron 8 mg PO Q8H 90 tabs 1RF for nausea/vomiting Coding Level of Care Code Est Pt Level 4 (23855) Diagnoses Gastroparesis K31.84 Elevated liver enzymes R74.8
== END 2024-02-09 09:16 | disposition home or self-care (01) ==
PROVIDERS: PCP Nurse Practitioner Family; Visit Provider Internal Medicine Gastroenterology
DX: K31.84 Gastroparesis (principal); R74.8 Abnormal levels of other serum enzymes
CPT/HCPCS: 99214

== ENCOUNTER → 2024-02-09 08:29 | Outpatient (BNVA) | payer OTHER, SELFPAY | PROVIDERS: PCP Nurse Practitioner Family; Visit Provider Internal Medicine Gastroenterology | DX: K31.84 Gastroparesis (principal); R74.8 Abnormal levels of other serum enzymes | CPT/HCPCS: 99212 ==

== ENCOUNTER 2024-02-12 10:48 | Outpatient (REF) | payer OTHER, SELFPAY ==
--- NOTE | ~2024-02-12 | MM_ITS ---
EXAMINATION: MM DIAGNOSTIC DIGITAL BREAST TOMOSYNTHESIS, BILATERAL US BREAST LIMITED, BILATERAL CLINICAL INFORMATION: Bilateral medial breast pain which spreads both breasts. Patient states cream-colored bilateral discharge x1 month although none is noted on compression, and no mention on 's note. COMPARISON: Mammography: 02/12/2024, 04/07/2023, 09/15/2021, 06/25/2020, and 06/20/2019. TECHNIQUE: Digital breast tomosynthesis is performed in both the craniocaudal and mediolateral oblique views along with computer-aided detection (CAD). Synthesized 2D images are generated from the tomosynthesis. In addition, bilateral full-field 3-D ML views were obtained of both breasts. FINDINGS: There are scattered areas of fibroglandular density (ACR BI-RADS breast composition Category b). There are stable regional calcifications upper outer both breasts, similar to prior studies without suspicious grouping or pleomorphism. There are no suspicious masses, suspicious grouped calcifications, or areas of architectural distortion in either breast. The overall parenchymal pattern is stable from prior exams. No mammographic correlate is evident in the regions of breast pain medial bilateral breasts. No retroareolar abnormality is evident to explain a questionable history of discharge. No suspicious skin or axillary abnormalities. ULTRASOUND: CLINICAL INFORMATION: Left superomedial breast pain, right inferomedial breast pain, questionable history of bilateral discharge x1 month. None elicited on today's exam. COMPARISON: Ultrasound right 04/07/2023. TECHNIQUE: Targeted sonographic evaluation bilaterally was performed using a high frequency linear transducer. Attention was given to the bilateral retroareolar regions, and the bilateral medial breasts in the regions of breast pain as marked by the technologist with the aid of the patient (right inferomedial spanning 1:00 to 7:00, left superomedial spanning 7:00 to 11:00). Selected archived documentation. FINDINGS: RIGHT BREAST: There is a mixture of fatty and fibroglandular tissue. No suspicious mass is seen. There is no pathologic acoustic shadowing. No cystic abnormalities. No retroareolar mass or duct ectasia. LEFT BREAST: There is a mixture of fatty and fibroglandular tissue. No suspicious mass is seen. There is no pathologic acoustic shadowing. No cystic abnormalities. No retroareolar mass or duct ectasia. MM/MM tomosynthesis diagnostic BI IMPRESSION: -There are no findings suspicious for malignancy in either breast. The examination is stable from priors. -There is no sonographic or mammographic correlate to the regions of breast pain in the medial aspects of both breasts as detailed above. Recommend clinical management and follow-up. There is no sonographic or mammographic correlate to explain nipple discharge bilaterally. Should this be a true clinical concern, and continue, MRI would be advised. -Otherwise, recommend returning to routine annual screening mammography. OVERALL ASSESSMENT: Mammography: BI-RADS 2 - Benign Findings Ultrasound: BI-RADS 2 - Benign Findings RECOMMENDATION: 1. Patient should be managed based on the clinical impression. 2. Otherwise, routine annual screening mammography. This patient's information was entered into a reminder system with a target due date for their next mammogram.
== END 2024-02-12 10:49 | disposition home or self-care (01) ==
LOC: HO.MAMMO 10:48
PROVIDERS: PCP Nurse Practitioner Family; Visit Provider Surgery
DX: N64.4 Mastodynia (principal)
CPT/HCPCS: 76642; 77062; 77066

== ENCOUNTER → 2024-02-12 11:00 | Outpatient (BNV) | payer OTHER, SELFPAY | PROVIDERS: PCP Nurse Practitioner Family; Visit Provider Radiology Diagnostic Radiology | DX: N64.4 Mastodynia (principal) | CPT/HCPCS: 76642; 77062; 77066 ==

== ENCOUNTER 2024-02-14 08:41 | Outpatient (REF) | payer OTHER, SELFPAY ==
--- NOTE | ~2024-02-14 | US_ITS ---
EXAMINATION: US THYROID CLINICAL INFORMATION: Nontoxic multinodular goiter. COMPARISON: Ultrasound thyroid 03/20/2023 and 04/18/2022. CT neck 10/19/2018. TECHNIQUE: Linear transducer grayscale and color Doppler examination with attention to the region of the thyroid. FINDINGS: SIZE: Measurements of the thyroid lobes and nodules are given in sagittal, anteroposterior and transverse dimensions respectively. Right Thyroid Lobe: 4.9 x 2.4 x 2.2 cm, volume 13.5 mL. Previously 5.3 x 2.6 x 1.9 cm, volume 13.7 mL. Parenchyma: The gland echotexture is mildly mildly heterogeneous. Thyroid vascularity is normal. Left Thyroid Lobe: Surgically absent. Isthmus: 0.3 cm in maximum AP dimension. Previously 0.4 cm. Estimated total number of nodules greater than or equal to 1 cm: 0. Information Technology Intern nodules are described as follows: 1. Location: Right upper. Size: 0.5 x 0.3 x 0.4 cm, volume 0.03 mL. Previously: Not seen on previous exam. Nodule characteristics: Composition: Solid (2). Echogenicity: Isoechoic (1). Shape: Not taller than wide (0). Margins: Smooth (0). Echogenic Foci: None (0). ACR TI-RADS total points: 3 Previous: N/A ACR TI-RADS category: 3 Previous: N/A 2. Location: Right mid pole. Size: 0.9 x 0.5 x 0.6 cm, volume 0.1 mL. Previously: 0.8 x 0.5 x 0.7 cm, volume 0.1 mL. Nodule characteristics: Composition: Solid (2). Echogenicity: Isoechoic (1). Shape: Not taller than wide (0). Margins: Smooth (0). Echogenic Foci: Punctate echogenic foci (3). ACR TI-RADS total points: 6 Previous: 3 ACR TI-RADS category: 4 Previous: 3 Significant change in size (>/= 20% in 2 dimensions and minimal increase of 2 mm or 50% or greater increase in volume): Change in features: Change in ACR TI-RADS risk category: 3. Location: Right lower pole. Size: Not seen on current exam Previously: 0.2 x 0.3 x 0.4 cm, volume 0.01 mL. Nodule characteristics: ACR TI-RADS total points: N/A Previous: 2 ACR TI-RADS category: N/A Previous: 2 NODES: No lymphadenopathy is seen in the tissue surrounding the thyroid gland. US/US thyroid IMPRESSION: History of left hemithyroidectomy. Right mid 0.9 cm TR 4 thyroid nodule is stable in size. Right upper 0.5 cm TR 3 thyroid nodule was not identified on the prior exam. Enlarged, diffusely heterogeneous thyroid gland. ACR TI-RADS RECOMMENDATION REFERENCE: Ultrasound-guided fine-needle aspiration, follow up ultrasound, no further followup. * TR1 (0 point) and TR2 (2 points): No FNA or followup * TR3 (3 points): FNA if more than or equal to 2.5 cm in maximum dimension, follow up ultrasound in 1, 3 and 5 years if 1.5 to 2.4 cm in maximum dimension. * TR4 (4-6 points): FNA if more than or equal to 1.5 cm in maximum dimension, follow up ultrasound in 1, 2, 3 and 5 years if 1 to 1.4 cm in maximum dimension. * TR5 (more than or equal to 7 points): FNA if more than or equal to 1 cm in maximum dimension, follow up ultrasound every year for 5 years if 0.5 to 0.9 cm in maximum dimension. * TR3, TR4 or TR5 nodules that are below the size threshold for follow up receive no followup.
== END 2024-02-14 08:42 | disposition home or self-care (01) ==
LOC: HO.US 08:41
PROVIDERS: PCP Nurse Practitioner Family; Visit Provider Internal Medicine Endocrinology, Diabetes & Metabolism
DX: E04.2 Nontoxic multinodular goiter (principal)
CPT/HCPCS: 76536

== ENCOUNTER 2024-02-15 09:58 | Outpatient (AMB) | payer OTHER, SELFPAY ==
[2024-02-15 10:28] VITALS: BP 138/80; PULSE 112; O2SAT 96; BMI 30.6
--- NOTE | 2024-02-15 10:28 | HO.NEPHOV ---
Vital Signs 02/15/24 10:28 Height 5 ft 3 in Weight 173 lb BMI 30.6 BP 138/80 Blood Pressure Location Rt brachial Position Sitting Pulse 112 H Pulse Source Pulse Oximeter Pulse Oximetry (%) 96 Oxygen Delivery Method Room Air Intake Visit Reasons: Hypokalemia/ 2 weeks fu/ Conf Sales Representative Required: Yes Sales Representative Name: Ruperto [id number] Accompanied by: Self / Same As Patient Allergies Sulfa (Sulfonamide Antibiotics) [SULFA (SULFONAMIDE ANTIBIOTICS)] Allergy (Intermediate, Verified 02/15/24 10:32) HIVES aspirin [ASPIRIN] Adverse Reaction (Intermediate, Verified 02/15/24 10:32) ABD PAIN morphine [MORPHINE] Adverse Reaction (Intermediate, Verified 02/15/24 10:32) ABD PAIN almond Allergy (Severe, Uncoded 02/09/24 08:42) Stomack pain Lactose intollerance Allergy (Severe, Uncoded 02/09/24 08:42) Stomach pain, nausceau Medication List - Last Reconciled 02/15/24 by Jayant Damon MD albuterol sulfate mg inhalation amitriptyline 50 mg (2 x 25 mg) PO BEDTIME 30 days amlodipine 10 mg PO DAILY azelastine 1 spray intranasal BID beclomethasone dipropionate 80 mcg/actuation (Qvar RediHaler) 1 inh inhalation BID 30 days cholecalciferol (vitamin D3) 25 mcg PO DAILY clonazepam 1 mg PO DAILY clonazepam 1 mg PO BEDTIME PRN diclofenac sodium 50 mg PO BID PRN diclofenac sodium 1% 2 grams topical BID PRN NS famotidine (Pepcid) 40 mg PO BEDTIME fluvoxamine 100 mg PO BID gabapentin 600 mg PO TID gabapentin 100 mg PO TID hydrocortisone 2.5% 1 appl [place] BID-QID hydrocortisone acetate (Anusol-HC) 25 mg [place] BID loratadine 10 mg PO DAILY memantine mg PO montelukast 10 mg PO BEDTIME multivitamin with folic acid 400 mcg (Daily-Laxmi (with folic acid)) 1 tab PO DAILY omega-3 acid ethyl esters 1 cap PO BID 90 days omeprazole 40 mg PO DAILY ondansetron 8 mg PO Q8H polyethylene glycol 3350 (Gavilax) 17 grams PO DAILY potassium chloride ER 40 mEq PO DAILY pravastatin 10 mg PO BEDTIME rizatriptan mg PO romosozumab-aqqg (Evenity) 210 mg (2.34 mL) subcut .qmonthly sennosides (Senna Laxative) 17.2 mg (2 x 8.6 mg) PO BEDTIME PRN spironolactone 25 mg PO DAILY tizanidine 4 mg PO BID PRN 14 days tramadol 50 mg PO BID PRN HPI Comments Details: 58-year-old female with an extensive medical history includes asthma, depression, bipolar disorder, hyperlipidemia, fibromyalgia, GERD, migraine, hyperthyroidism, thyroid cancer status post thyroidectomy, She has been referred for hypokalemia 2 years ago she had hypokalemia which was corrected. Recently she has had persistent hypokalemia. Potassium was in the low 2s. She was on chlorthalidone 25 mg a day. This was decreased to 12.5 mg and subsequently discontinued 3 weeks ago. The recent potassium was 4.4 millimoles per L on September 21. Serum chloride and bicarb levels were normal no alkalosis. Renal function has also been normal. She denies any polyuria or polydipsia. No history of any diarrhea. There is history of constipation. Currently she is on 8 tablets of potassium chloride. Of note she says not on diuretics at this time. However, daughter gave her some natural diuretics for edema She is on high dose of Amlodipine -10mg 12/25/23 c/o Cramps K was low KCL increased to 10 mg Not of diuretics Has leg edema - on Amlodipine 5 mg QD Urine K was high CTA - NO MAGDALENA 01/15/24 Feels better Edema resolved NO more cramps 02/15/2024. She was supposed to be on 8 tablets of potassium chloride but she is still taking 10 tablets. [facility] Medical History Chronic radicular pain of lower back Foot pain, bilateral Joint pain in both hands Breast pain Hypokalemia Breast pain, right Allergies Migraines Renal calculi Bipolar disorder Chronic abdominal pain Osteoporosis Hyperparathyroidism Multinodular thyroid Depression Fibromyalgia Thrombocytosis Leukocytosis GERD (gastroesophageal reflux disease) Thyroid cancer PONV (postoperative nausea and vomiting) Elevated cholesterol Difficulty swallowing Vitamin D deficiency Anxiety Pulmonary nodule Asthma HTN (hypertension) Surgical History Hx of thyroidectomy H/O esophagogastroduodenoscopy H/O colonoscopy History of bilateral oophorectomy Hx of cholecystectomy S/P excision of lipoma History of total abdominal hysterectomy Hx of appendectomy Family History Father Diabetes mellitus Skin cancer Prostate cancer Mother HTN (hypertension) High cholesterol Mental health disorder Maternal Grandfather Myocardial infarction Maternal Grandmother No problems noted. Paternal Grandfather No problems noted. 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) Alcohol intake: never Patient Tobacco Use Status: Current everyday Tobacco user Tobacco use type: Cigarette Cigarettes Per Day: 5 Years Smoked: 20 e-Cigarette/Vaping Use: Never Used Second Hand Smoke Exposure: No Advance Directives Date on File: 10/11/16 service: No Current occupational status: disabled Sexual orientation: Straight/Heterosexual Gender identity: Female Cognitive needs: No Hearing needs: No Vision needs: No Physical Exam Vital Signs: Last Vital Signs Pulse 112 H 02/15/24 10:28 BP 138/80 02/15/24 10:28 Pulse Ox 96 02/15/24 10:28 Oxygen Delivery Method Room Air 02/15/24 10:28 BMI result Body Mass Index 30.6 Const General: cooperative and no acute distress Orientation/consciousness: patient oriented x3 Resp Effort & Inspection: normal respiratory effort and able to speak in complete sentences Neuro General: patient oriented x3 Cognition (Neuro): normal cognition Psych Appearance: grossly normal Mental Status: mental status grossly normal Speech and movement: Normal speech and movement present Affect: normal affect Attitude: cooperative Results Reviewed Nephrology Results: Sodium 139 mmol/L (135-145) 02/03/24 Potassium 4.3 mmol/L (3.3-5.1) 02/03/24 Chloride 108 mmol/L (96-108) 02/03/24 Carbon Dioxide 23 mmol/L (22-29) 02/03/24 BUN 10 mg/dL (9-16) 02/03/24 Creatinine 0.76 mg/dL (0.5-1.4) 02/03/24 Calcium 9.3 mg/dL (8.4-10.2) 02/03/24 Assessment & Plan Assessment & Plan (1) Hypokalemia: Code(s): E87.6 - Hypokalemia Category: Medical (2) HTN (hypertension): Code(s): I10 - Essential (primary) hypertension Category: Medical Plan Middle-aged woman with multiple medical problems comes in with significant hypokalemia. Initially she was on chlorthalidone with potassium supplementation. However after lowering chlorthalidone potassium was still significantly low. Currently she is on 100 mEq of potassium supplementation. No alkalosis. She does have hypertension. In the past she had plasma renin and aldosterone levels which were all in the normal range. Serum Aldosterone was 19 and plasma renin was elevated at 14 Causes include diuretic use, No evidence of renin producing tumor, or renal artery stenosis , based on CT SCAN AVOID chlorthalidone Due to edema , I will STOPPED Amlodipine. Edema improved Increase Spironolactone 25 mg DAILY and watch K (02/15/24) Will decrease KCL (10 meq ) from 10 tabs to 8 tabs and recheck If hypokalemia persists , would obtain a diuretic screen Medications: New spironolactone 25 mg PO DAILY 30 tabs 1RF Coding Level of Care Code Est Pt Level 4 (32607) Diagnoses Hypokalemia E87.6 HTN (hypertension) I10
== END 2024-02-15 11:02 | disposition home or self-care (01) ==
PROVIDERS: PCP Nurse Practitioner Family; Visit Provider Internal Medicine Hypertension Specialist
DX: E87.6 Hypokalemia (principal); I10 Essential (primary) hypertension
CPT/HCPCS: 99214

== ENCOUNTER → 2024-02-15 09:58 | Outpatient (BNVA) | payer OTHER, SELFPAY | PROVIDERS: PCP Nurse Practitioner Family; Visit Provider Internal Medicine Hypertension Specialist | DX: M81.0 Age-related osteoporosis without current pathological fracture (principal); E87.6 Hypokalemia; I10 Essential (primary) hypertension | CPT/HCPCS: 96372; 99212; J3111 ==

== ENCOUNTER 2024-02-15 11:12 | Outpatient (AMB) | payer OTHER, SELFPAY ==
--- NOTE | 2024-02-15 11:42 | AM.OFFVISNUR ---
Intake Intake Visit Reasons: Evenity Allergies Sulfa (Sulfonamide Antibiotics) [SULFA (SULFONAMIDE ANTIBIOTICS)] Allergy (Intermediate, Verified 02/15/24 10:32) HIVES aspirin [ASPIRIN] Adverse Reaction (Intermediate, Verified 02/15/24 10:32) ABD PAIN morphine [MORPHINE] Adverse Reaction (Intermediate, Verified 02/15/24 10:32) ABD PAIN almond Allergy (Severe, Uncoded 02/09/24 08:42) Stomack pain Lactose intollerance Allergy (Severe, Uncoded 02/09/24 08:42) Stomach pain, nausceau Office Meds romosozumab-aqqg 210 mg/2.34 mL(105 mg/1.17 mL x2)subcutaneous syringe Performing Provider: Deuce Valdes MD [place]forming [place] [facility] [place] [facility] Administered by: Debby Terrazas RN on 02/15/24 11:42 Dose Route Admin Location Dispensed Lot Number Expiration Date NDC Sulky Driver 210 mg subcut LUQ and RUQ of abdomen 2.34 mL [id number] 07/04/26 16029-086-61 AMGEN Comments: Consent form signed. This was pt's first injection, pt observed for 15 minutes. Pt advised to call back with any site redness, swelling or warmth or with any other side effects. Spoke with Dr. Valdes and oamr for pt to give herself emgality injection tonight. Pt was advised to use a different site on her abdomen. Coding Assessment & Plan Assessment & Plan Orders: Orders AMB Romosozumab Injection Patient Supplied Today M81.0 - Age-related osteoporosis without current pathological fracture Medications: New romosozumab-aqqg 210 mg (2.34 mL) subcut ONCE 2.34 mL 0RF M81.0 - Age-related osteoporosis without current pathological fracture
== END 2024-02-15 11:41 | disposition home or self-care (01) ==
PROVIDERS: PCP Nurse Practitioner Family; Visit Provider Internal Medicine Endocrinology, Diabetes & Metabolism
DX: M81.0 Age-related osteoporosis without current pathological fracture (principal)

== ENCOUNTER 2024-02-22 08:23 | Outpatient (AMB) | payer OTHER, SELFPAY ==
--- NOTE | 2024-02-22 08:46 | A.OFFVIS_ITS ---
Vital Signs 02/22/24 08:50 Height 5 ft 3 in Weight 175 lb BMI 31.0 BP 152/84 H Blood Pressure Location Rt brachial Position Sitting Pulse 104 H Intake Visit Reasons: Pyloraplasty for gastroparesis Intake Note: Patient is seen in office for evaluation and treatment of pyloraplasty for gastroparesis. Pt c/o: pain on abdomen with touch. All of the sudden vomiting episodes. refer: Vika Cooler Worker Required: Yes Cooler Worker Name: Nida RAMIREZ Accompanied by: Self / Same As Patient Allergies Sulfa (Sulfonamide Antibiotics) [SULFA (SULFONAMIDE ANTIBIOTICS)] Allergy (Intermediate, Verified 02/22/24 08:52) HIVES aspirin [ASPIRIN] Adverse Reaction (Intermediate, Verified 02/22/24 08:52) ABD PAIN morphine [MORPHINE] Adverse Reaction (Intermediate, Verified 02/22/24 08:52) ABD PAIN almond Allergy (Severe, Uncoded 02/22/24 08:52) Stomack pain Lactose intollerance Allergy (Severe, Uncoded 02/22/24 08:52) Stomach pain, nausceau Medication List - Last Reconciled 02/22/24 by Raymundo Walton MD albuterol sulfate mg inhalation amitriptyline 50 mg (2 x 25 mg) PO BEDTIME 30 days amlodipine 10 mg PO DAILY azelastine 1 spray intranasal BID beclomethasone dipropionate 80 mcg/actuation (Qvar RediHaler) 1 inh inhalation BID 30 days cholecalciferol (vitamin D3) 25 mcg PO DAILY clonazepam 1 mg PO DAILY clonazepam 1 mg PO BEDTIME PRN diclofenac sodium 50 mg PO BID PRN diclofenac sodium 1% 2 grams topical BID PRN NS famotidine (Pepcid) 40 mg PO BEDTIME fluvoxamine 100 mg PO BID gabapentin 600 mg PO TID gabapentin 100 mg PO TID hydrocortisone 2.5% 1 ea W[place] Q8-12H hydrocortisone acetate (Anusol-HC) 25 mg W[place] BID loratadine 10 mg PO DAILY memantine mg PO montelukast 10 mg PO BEDTIME multivitamin with folic acid 400 mcg (Daily-Laxmi (with folic acid)) 1 tab PO DAILY omega-3 acid ethyl esters 1 cap PO BID 90 days omeprazole 40 mg PO DAILY ondansetron 8 mg PO Q8H polyethylene glycol 3350 (Gavilax) 17 grams PO DAILY potassium chloride ER 40 mEq PO DAILY pravastatin 10 mg PO BEDTIME rizatriptan mg PO romosozumab-aqqg (Evenity) 210 mg (2.34 mL) subcut .qmonthly sennosides (Senna Laxative) 17.2 mg (2 x 8.6 mg) PO BEDTIME PRN spironolactone 25 mg PO DAILY tizanidine 4 mg PO BID PRN 14 days tramadol 50 mg PO BID PRN 30 days HPI Comments Details: 58-year-old female patient determined to have gastric outlet obstruction with a delayed gastric emptying study presenting for discussion of possible pyloroplasty. She reports abdominal bloating, pain, nausea, and vomiting which is somewhat improved with Zofran. The pain is mainly located in the upper abdomen made worse with food. She also reports constipation. Her past medical history is also significant for asthma, fibromyalgia, HTN, constipation, hyperparathyroidism, hemithyroidectomy and migraine headaches. She previously underwent abdominal hysterectomy, appendectomy, and cholecystectomy. [facility] Medical History Chronic radicular pain of lower back Foot pain, bilateral Joint pain in both hands Breast pain Hypokalemia Breast pain, right Allergies Migraines Renal calculi Bipolar disorder Chronic abdominal pain Osteoporosis Hyperparathyroidism Multinodular thyroid Depression Fibromyalgia Thrombocytosis Leukocytosis GERD (gastroesophageal reflux disease) Thyroid cancer PONV (postoperative nausea and vomiting) Elevated cholesterol Difficulty swallowing Vitamin D deficiency Anxiety Pulmonary nodule Asthma HTN (hypertension) Surgical History Hx of thyroidectomy H/O esophagogastroduodenoscopy H/O colonoscopy History of bilateral oophorectomy Hx of cholecystectomy S/P excision of lipoma History of total abdominal hysterectomy Hx of appendectomy Family History Father Diabetes mellitus Skin cancer Prostate cancer Mother HTN (hypertension) High cholesterol Mental health disorder Maternal Grandfather Myocardial infarction Maternal Grandmother No problems noted. Paternal Grandfather No problems noted. 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) Alcohol intake: never Patient Tobacco Use Status: Current everyday Tobacco user Tobacco use type: Cigarette Cigarettes Per Day: 5 Years Smoked: 20 e-Cigarette/Vaping Use: Never Used Second Hand Smoke Exposure: No Advance Directives Date on File: 10/11/16 service: No Current occupational status: disabled Sexual orientation: Straight/Heterosexual Gender identity: Female Cognitive needs: No Hearing needs: No Vision needs: No Review of Systems Const All systems reviewed & are unremarkable except as noted in HPI and below Denies chills, Denies fever(s), Denies headache(s), Reports poor appetite and Denies weakness ENT Denies headache(s) Card Denies chest pain, Denies irregular heart rhythm, Denies palpitations and Denies dyspnea Resp Denies cough, Denies excessive phlegm production and Denies dyspnea GI Denies abdominal pain, Reports bloating, Denies change in bowel habits, Denies constipation, Denies heartburn, Denies diarrhea, Reports nausea and Reports vomiting Denies urinary frequency Musc Denies back pain, Denies muscle weakness and Denies numbness Skin/Breast Denies changing lesions and Denies unusual bruising Neuro Denies headache(s), Denies numbness, Denies paresthesias and Denies weakness Psych Denies anxiety and Denies depression Endo Denies palpitations Christopher/Lymph Denies lymphadenopathy Physical Exam Const General: cooperative and no acute distress Nutritional Appearance: well nourished Orientation/consciousness: patient oriented x3 Limitations: no limitations HEENT Head: Yes normocephalic and Yes atraumatic Ears: hearing grossly normal bilaterally Resp Effort & Inspection: normal respiratory effort, no audible wheezes, no cough and no respiratory distress Cardio Jugular venous distension: no JVD GI Inspection: Yes normal to inspection Palpation (GI): Soft to palpation, Tenderness to palpation present (GI) in the LUQ and in the RUQ, no guarding and not rigid Percussion: Yes normal to percussion Auscultation: normal bowel sounds Rectal Exam - Female: deferred Skin Other: Warm, dry, no rash Neuro General: patient oriented x3 Extrem General: Yes no clubbing, cyanosis or edema Assessment & Plan Assessment & Plan (1) Gastroparesis: Code(s): K31.84 - Gastroparesis Category: Medical Plan 58-year-old female patient presenting with a known history of gastroparesis with persistent symptoms despite maximal medical treatment. We reviewed the gastric emptying studies and previous abdominal CT scan and discussed the risks and benefits of pyloroplasty. She understands that this potentially could be done laparoscopically although she would need a referral to a tertiary care center for this. We discussed open pyloroplasty and she understands that this may not improve all her symptoms. After discussion of the procedure, risks, and alternatives, she consents to the open pyloroplasty. This will be scheduled as a short-stay admit at her earliest convenience. Coding Level of Care Code New Pt Level 4 (55366) Diagnoses Gastroparesis K31.84
[2024-02-22 08:50] VITALS: BP 152/84; PULSE 104; BMI 31.0
== END 2024-02-22 09:18 | disposition home or self-care (01) ==
PROVIDERS: PCP Nurse Practitioner Family; Referring Provider Internal Medicine Gastroenterology; Visit Provider Surgery
DX: K31.84 Gastroparesis (principal)
CPT/HCPCS: 99204

== ENCOUNTER → 2024-02-22 08:23 | Outpatient (BNVA) | payer OTHER, SELFPAY | PROVIDERS: PCP Nurse Practitioner Family; Referring Provider Internal Medicine Gastroenterology; Visit Provider Surgery | DX: K31.84 Gastroparesis (principal) | CPT/HCPCS: 99202 ==

== ENCOUNTER 2024-02-29 09:23 | Outpatient (AMB) | payer OTHER, SELFPAY ==
--- NOTE | 2024-02-29 09:24 | A.OFFVIS_ITS ---
Intake Visit Reasons: 3 mo f/u-CONF Intake Note: Pt presents for a 4 month follow up for gait disturbance via telehealth. 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 Required: Yes 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 Name: Emma Mendez Allergies Sulfa (Sulfonamide Antibiotics) [SULFA (SULFONAMIDE ANTIBIOTICS)] Allergy (Intermediate, Verified 02/22/24 08:52) HIVES aspirin [ASPIRIN] Adverse Reaction (Intermediate, Verified 02/22/24 08:52) ABD PAIN morphine [MORPHINE] Adverse Reaction (Intermediate, Verified 02/22/24 08:52) ABD PAIN almond Allergy (Severe, Uncoded 02/22/24 08:52) Stomack pain Lactose intollerance Allergy (Severe, Uncoded 02/22/24 08:52) Stomach pain, nausceau Medication List - Last Reconciled 02/29/24 by BACILIO Lopez albuterol sulfate mg inhalation amitriptyline 50 mg (2 x 25 mg) PO BEDTIME 30 days amlodipine 10 mg PO DAILY azelastine 1 spray intranasal BID beclomethasone dipropionate 80 mcg/actuation (Qvar RediHaler) 1 inh inhalation BID 30 days cholecalciferol (vitamin D3) 25 mcg PO DAILY clonazepam 1 mg PO DAILY clonazepam 1 mg PO BEDTIME PRN diclofenac sodium 50 mg PO BID PRN diclofenac sodium 1% 2 grams topical BID PRN NS famotidine (Pepcid) 40 mg PO BEDTIME fluvoxamine 100 mg PO BID gabapentin 600 mg PO TID gabapentin 100 mg PO TID galcanezumab-gnlm (Emgality Pen) 120 mg subcut ONCE 30 days hydrocortisone 2.5% 1 ea [place] Q8-12H hydrocortisone acetate (Anusol-HC) 25 mg [place] BID loratadine 10 mg PO DAILY memantine mg PO montelukast 10 mg PO BEDTIME multivitamin with folic acid 400 mcg (Daily-Laxmi (with folic acid)) 1 tab PO DAILY omega-3 acid ethyl esters 1 cap PO BID 90 days omeprazole 40 mg PO DAILY ondansetron 8 mg PO Q8H polyethylene glycol 3350 (Gavilax) 17 grams PO DAILY potassium chloride ER 40 mEq (4 x 10 mEq) PO BID pravastatin 10 mg PO BEDTIME rizatriptan mg PO romosozumab-aqqg (Evenity) 210 mg (2.34 mL) subcut .qmonthly sennosides (Senna Laxative) 17.2 mg (2 x 8.6 mg) PO BEDTIME PRN spironolactone 25 mg PO DAILY tizanidine 4 mg PO BID PRN 14 days tramadol 50 mg PO BID PRN 30 days HPI Comments Details: 58-yr-old female presents for f/u televideo visit via [employer]. Pt states she will be undergoing a gastroparesis procedure next week. She states she has low level headaches most days but no severe migraines, unless her Emgality is delivered to her late. Then, she will have daily severe migraine until she resumes her Emgality. The Ubrlevy helps beter than the Rizatriptan- uses one or the other depending on severity. She states her tremor is stable. She had had 3 episodes of what sounds like freezing- where she wants to walk but her feet are stuck to the ground. She does use a walker. [facility] Medical History Chronic radicular pain of lower back Foot pain, bilateral Joint pain in both hands Breast pain Hypokalemia Breast pain, right Allergies Migraines Renal calculi Bipolar disorder Chronic abdominal pain Osteoporosis Hyperparathyroidism Multinodular thyroid Depression Fibromyalgia Thrombocytosis Leukocytosis GERD (gastroesophageal reflux disease) Thyroid cancer PONV (postoperative nausea and vomiting) Elevated cholesterol Difficulty swallowing Vitamin D deficiency Anxiety Pulmonary nodule Asthma HTN (hypertension) Surgical History Hx of thyroidectomy H/O esophagogastroduodenoscopy H/O colonoscopy History of bilateral oophorectomy Hx of cholecystectomy S/P excision of lipoma History of total abdominal hysterectomy Hx of appendectomy Family History Father Diabetes mellitus Skin cancer Prostate cancer Mother HTN (hypertension) High cholesterol Mental health disorder Maternal Grandfather Myocardial infarction Maternal Grandmother No problems noted. Paternal Grandfather No problems noted. 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) Alcohol intake: never Patient Tobacco Use Status: Current everyday Tobacco user Tobacco use type: Cigarette Cigarettes Per Day: 5 Years Smoked: 20 e-Cigarette/Vaping Use: Never Used Second Hand Smoke Exposure: No Advance Directives Date on File: 10/11/16 service: No Current occupational status: disabled Sexual orientation: Straight/Heterosexual Gender identity: Female Cognitive needs: No Hearing needs: No Vision needs: No Physical Exam Const General: cooperative and no acute distress Orientation/consciousness: patient oriented x3 Resp Effort & Inspection: normal respiratory effort and able to speak in complete sentences Neuro General: patient oriented x3 Cognition (Neuro): normal cognition Psych Appearance: grossly normal Mental Status: mental status grossly normal Speech and movement: Normal speech and movement present Affect: normal affect Attitude: cooperative Telehealth Telehealth Telehealth Platform: [facility] Location of provider rendering services: practice address Location of patient: address on file Patient Identification confirmed using: Name, : Yes Telehealth method: video Patient verbally consented to treatment: Yes Patient verbally consented to billing insurance company: Yes Patient informed of any privacy concerns related to visit: Yes Minutes spent on Phone/Video with Pt.: 27 Assessment & Plan Assessment & Plan (1) Migraines: Code(s): G43.909 - Migraine, unspecified, not intractable, without status migrainosus Category: Medical (2) Tremor: Code(s): R25.1 - Tremor, unspecified Category: Medical (3) Involuntary movements: Code(s): R25.9 - Unspecified abnormal involuntary movements Category: Medical Plan For tremor- C-spine XR- Mild degenerative changes. Brain MRI w/wo- stable mild nonspecific white matter disease and prominent perivascular spaces in supratentorial compartment. No findings to explain pt's movement s/s. Tips given to break freezing episodes. Consider trial of CD-LD and PT after pt has recovered from upcoming GI procedure. On review, considerations: DaTscan, PT. ? For headache prevention: Continue riboflavin 200 mg b.i.d.. Continue magnesium 400-500 mg q.h.s., may hold for GI side effects. Continue Amitriptyline to 50mg qhs- for sleep as well- monitor mood. Continue Emgality 120mg sc q month. Previous migraine tx trials: Topiramate 25-50mg qhs- not effective after > 12 wks. ? For acute migraine treatment: Continue sumatriptan prn Continue Rizatripatn 5-10 mg for now- unfortunately not always effective. Continue Ubrogepant (Ubrelvy) 100mg tab, 1/2 - 1 tab (50-100mg) at onset of headache, may repeat in 2 hours. Max of 2 tabs (200mg) per 24 hours. May adjunct with Rizatriptan, or OTC Tylenol 650mg q 4 hours, Ibuprofen 600mg q 6 hours, or Naproxen 440mg q 12 hrs prn. May try taking Ubrelvy w/ Rizatriptan. May try taking Ubrelvy the week before next Emgality injection due. Previous migraine tx trials: Sumatriptan- ineffective. ? ? f/u in 3-6 months or sooner prn. Medications: Refilled galcanezumab-gnlm (Emgality Pen) 120 mg subcut ONCE 1 mL 6RF 30 days Scribe Plan - Not visible on output: Reviewed possible medication side effects, including but not limited to drowsiness, dizziness. Coding Level of Care Code Tele Est Pt Level 4 (36549) Diagnoses Migraines G43.909 Tremor R25.1 Involuntary movements R25.9
== END 2024-02-29 11:04 | disposition home or self-care (01) ==
LOC: HO.HSMS 09:23
PROVIDERS: PCP Nurse Practitioner Family; Visit Provider Nurse Practitioner Family
DX: G43.909 Migraine, unspecified, not intractable, without status migrainosus (principal); R25.1 Tremor, unspecified; R25.9 Unspecified abnormal involuntary movements
CPT/HCPCS: 99214

== ENCOUNTER → 2024-02-29 09:23 | Outpatient (BNVA) | payer OTHER, SELFPAY | PROVIDERS: PCP Nurse Practitioner Family; Visit Provider Nurse Practitioner Family ==

== ENCOUNTER 2024-03-05 09:09 | Outpatient (REF) | payer OTHER, SELFPAY ==
[2024-03-05 11:33] LABS: Anion Gap 19 (12-20); Blood Urea Nitrogen 10 mg/dL (9-16); Calcium 10.4 mg/dL (8.4-10.2); Carbon Dioxide 24 mmol/L (22-29); Chloride 98 mmol/L (96-108); Estimated Glomerular Filt Rate > 60; Glucose Random 112 mg/dL (60-115); Potassium 2.5 mmol/L (3.3-5.1); Sodium 138 mmol/L (135-145)
== END 2024-03-05 09:10 | disposition home or self-care (01) ==
LOC: HO.LAB 09:09
PROVIDERS: PCP Nurse Practitioner Family; Visit Provider Internal Medicine Hypertension Specialist
DX: E87.6 Hypokalemia (principal)
CPT/HCPCS: 36415; 80048

== ENCOUNTER 2024-03-12 13:53 | Outpatient (REF) | payer OTHER, SELFPAY ==
[2024-03-12 15:25] LABS: Anion Gap 11 (12-20); Blood Urea Nitrogen 7 mg/dL (9-16); Carbon Dioxide 23 mmol/L (22-29); Chloride 110 mmol/L (96-108); Estimated Glomerular Filt Rate > 60; Glucose Random 107 mg/dL (60-115); Potassium 4.4 mmol/L (3.3-5.1); Sodium 140 mmol/L (135-145)
== END 2024-03-12 13:54 | disposition home or self-care (01) ==
LOC: HO.LAB 13:53
PROVIDERS: PCP Nurse Practitioner Family; Visit Provider Internal Medicine Hypertension Specialist
DX: E87.6 Hypokalemia (principal)
CPT/HCPCS: 36415; 80048

== ENCOUNTER 2024-03-19 12:47 | Outpatient (AMB) | payer OTHER, SELFPAY ==
--- NOTE | 2024-03-19 13:17 | AM.OFFVISNUR ---
Intake Visit Reasons: Evenity Allergies Sulfa (Sulfonamide Antibiotics) [SULFA (SULFONAMIDE ANTIBIOTICS)] Allergy (Intermediate, Verified 02/22/24 08:52) HIVES egg Allergy (Verified 03/05/24 09:52) Abdominal Pain strawberry Allergy (Verified 03/05/24 09:53) Abdominal Pain aspirin [ASPIRIN] Adverse Reaction (Intermediate, Verified 02/22/24 08:52) ABD PAIN morphine [MORPHINE] Adverse Reaction (Intermediate, Verified 02/22/24 08:52) ABD PAIN almond Allergy (Severe, Uncoded 02/22/24 08:52) Stomack pain Lactose intollerance Allergy (Severe, Uncoded 02/22/24 08:52) Stomach pain, nausceau Office Meds romosozumab-aqqg 210 mg/2.34 mL(105 mg/1.17 mL x2)subcutaneous syringe Performing Provider: Deuce Valdes MD Performing Location: [facility] Endocrinology Administered by: Karey Martinez LPN on 03/19/24 13:17 Dose Route Admin Location Dispensed Lot Number Expiration Date [facility] [employer] 210 mg subcut Bilateral abdomen 2.34 mL [id number] 07/04/26 [facility]GEN Assessment & Plan Assessment & Plan Orders: Orders AMB Romosozumab Injection Patient Supplied Today M81.0 - Age-related osteoporosis without current pathological fracture Medications: New romosozumab-aqqg 210 mg (2.34 mL) subcut ONCE 2.34 mL 0RF M81.0 - Age-related osteoporosis without current pathological fracture
== END 2024-03-19 13:16 | disposition home or self-care (01) ==
LOC: HO.ENCR 12:47
PROVIDERS: PCP Nurse Practitioner Family; Visit Provider Internal Medicine Endocrinology, Diabetes & Metabolism
DX: M81.0 Age-related osteoporosis without current pathological fracture (principal)

== ENCOUNTER → 2024-03-19 12:47 | Outpatient (BNVA) | payer OTHER, SELFPAY | PROVIDERS: PCP Nurse Practitioner Family; Visit Provider Internal Medicine Endocrinology, Diabetes & Metabolism | DX: M81.0 Age-related osteoporosis without current pathological fracture (principal) | CPT/HCPCS: 96372; J3111 ==

== ENCOUNTER 2024-03-22 10:17 | Outpatient (REF) | payer OTHER, SELFPAY ==
[2024-03-22 13:40] LABS: Anion Gap 17 (12-20); Carbon Dioxide 21 mmol/L (22-29); Chloride 103 mmol/L (96-108); Potassium 4.3 mmol/L (3.3-5.1); Sodium 137 mmol/L (135-145)
== END 2024-03-22 10:18 | disposition home or self-care (01) ==
LOC: HO.LAB 10:17
PROVIDERS: PCP Nurse Practitioner Family; Visit Provider Internal Medicine Nephrology
DX: E87.6 Hypokalemia (principal)
CPT/HCPCS: 36415; 80051

== ENCOUNTER → 2024-03-27 10:30 | Outpatient (BNV) | payer OTHER, SELFPAY | PROVIDERS: Admitting Provider Surgery; PCP Nurse Practitioner Family; Visit Provider Internal Medicine | DX: I10 Essential (primary) hypertension (principal); R06.02 Shortness of breath | CPT/HCPCS: 93010 ==

== ENCOUNTER 2024-03-27 11:48 | Inpatient (IN) | payer OTHER, SELFPAY ==
[2024-03-05 10:18] VITALS: BP 147/73; PULSE 101; RESP 18; O2SAT 95; BMI 30.1
--- NOTE | 2024-03-26 12:02 | HO.ANESPROP2 ---
HPI - Anesthesia Eval Consult details Narrative: 58yo F for Exploratory Laparotomy (Pyloroplasty) Eval by Dr Munoz in PAT 03/05/24 Hx hypoK r/t diuretic use per nephro. Low K 03/05/24, but normalized for subsequent redraws with med adjustment PMFSH Active Problems Active Problems: All Active Problems Gastroparesis (Acute) Gait abnormality (Acute) Involuntary movements (Acute) Tremor (Acute) Whole body pain (Acute) Osteoarthritis of left knee (Acute) Malnutrition (Acute) Food allergy (Acute) ROSE positive (Acute) Large breasts (Acute) Excessive daytime sleepiness (Acute) Sleep disorder (Acute) Dysphagia (Acute) Chronic constipation (Acute) Abdominal pain (Acute) Liver cyst (Acute) Dyslipidemia (Acute) Elevated liver enzymes (Acute) Vitamin D deficiency (Acute) History of thyroid cancer (Acute) Hemorrhoid (Acute) Pulmonary nodules (Acute) Asthma (Acute) Acid reflux (Acute) Hyperplastic colon polyp (Acute) Chronic radicular pain of lower back (Acute) Foot pain, bilateral (Acute) Joint pain in both hands (Acute) Breast pain (Acute) HTN (hypertension) (Acute) Hypokalemia (Acute) Migraines (Acute) Breast pain, right (Acute) Leukocytosis (Acute) Allergies (Acute) Pulmonary nodule (Acute) Osteoporosis (Acute) Hyperparathyroidism (Acute) Multinodular thyroid (Acute) Depression (Acute) Anxiety (Acute) Asthma (Acute) Fibromyalgia (Acute) Past Medical History Medical History Numbness Wheezing Chronic radicular pain of lower back Foot pain, bilateral Joint pain in both hands Breast pain Hypokalemia Breast pain, right Allergies Migraines Renal calculi Bipolar disorder Chronic abdominal pain Osteoporosis Hyperparathyroidism Multinodular thyroid Depression Fibromyalgia Thrombocytosis Leukocytosis GERD (gastroesophageal reflux disease) Thyroid cancer PONV (postoperative nausea and vomiting) Elevated cholesterol Difficulty swallowing Vitamin D deficiency Anxiety Pulmonary nodule Asthma HTN (hypertension) Family History Family History Father Diabetes mellitus Skin cancer Prostate cancer Mother HTN (hypertension) High cholesterol Mental health disorder Maternal Grandfather Myocardial infarction Maternal Grandmother No problems noted. Paternal Grandfather No problems noted. Paternal Grandmother Breast cancer Sister Mental health disorder Family history of problems with anesthesia: No Surgical History Surgical History H/O pyloroplasty (03/27/24) History of excision of mass Hx of thyroidectomy H/O esophagogastroduodenoscopy H/O colonoscopy History of bilateral oophorectomy Hx of cholecystectomy S/P excision of lipoma History of total abdominal hysterectomy Hx of appendectomy History of Problems with Anesthesia: No Social History Social History Household Members: None Housing: Apartment Are you a primary long term care social worker to a significant other at home: No Do you presently have visiting nurse or other home services: No Alcohol intake: never Patient Tobacco Use Status: Current everyday Tobacco user Tobacco use type: Cigarette Cigarettes Per Day: 5 Years Smoked: 20 e-Cigarette/Vaping Use: Never Used Second Hand Smoke Exposure: No Advance Directives Date on File: 10/05/16 service: No Current occupational status: disabled Sexual orientation: Straight/Heterosexual Gender identity: Female Cognitive needs: No Hearing needs: No Vision needs: No Meds Allergies Allergy/AdvReac Type Severity Reaction Status Date / Time Sulfa (Sulfonamide Allergy Intermediate HIVES Verified 04/09/24 08:25 Antibiotics) [SULFA (SULFONAMIDE ANTIBIOTICS)] egg Allergy Abdominal Verified 04/09/24 08:25 Pain strawberry Allergy Abdominal Verified 04/09/24 08:25 Pain aspirin [ASPIRIN] AdvReac Intermediate ABD PAIN Verified 04/09/24 08:25 morphine [MORPHINE] AdvReac Intermediate Abdominal Verified 04/09/24 08:25 Pain almond Allergy Severe Stomack Uncoded 04/09/24 08:25 pain Lactose intollerance Allergy Severe Stomach Uncoded 04/09/24 08:25 pain, nausceau Home Medications ?Medication ?Instructions ?Recorded ?Confirmed ?Last Taken ?Type memantine 10 mg tablet 10 mg PO Q OTHER DAY 07/13/23 04/09/24 03/27/24 04:00 History clonazepam 0.5 mg tablet 0.5 mg PO DAILY PRN Anxiety 10/19/23 04/09/24 Unknown History gabapentin 100 mg capsule 100 mg PO TID 12/25/23 04/09/24 03/27/24 04:00 History gabapentin 600 mg tablet 600 mg PO TID 12/25/23 04/09/24 03/27/24 04:00 History albuterol sulfate 2.5 mg/3 mL 2.5 mg inhalation DAILY PRN 01/10/24 04/09/24 Unknown History (0.083 %) solution for nebulization Shortness Of Breath Or Wheezing clonazepam 1 mg tablet 1 mg PO BEDTIME PRN Anxiety 01/10/24 04/09/24 Unknown History fluvoxamine 100 mg tablet 100 mg PO BID 01/10/24 04/09/24 03/27/24 04:00 History galcanezumab-gnlm 120 mg/mL 120 mg subcut Q30D 03/05/24 04/09/24 03/22/24 History subcutaneous pen injector (Emgality Pen) hydrocortisone acetate 25 mg 25 mg AK BID PRN Hemorrhoids 03/05/24 04/09/24 Unknown History rectal suppository (Anusol-HC) polyethylene glycol 3350 17 17 g PO DAILY PRN Constipation 03/05/24 04/09/24 Unknown History gram/dose oral powder (Gavilax) sennosides 8.6 mg tablet (Senna 17.2 mg PO BEDTIME for constipation 03/05/24 04/09/24 03/26/24 History Laxative) ondansetron 8 mg disintegrating 8 mg PO Q8H PRN nausea/vomiting 03/27/24 04/09/24 Unknown History tablet rizatriptan 10 mg tablet 10 mg PO DAILY PRN migraine 03/27/24 04/09/24 Unknown History romosozumab-aqqg 210 mg/2.34 210 mg subcut Q28D 03/27/24 04/09/24 03/22/24 History mL(105 mg/1.17 mL x2)subcutaneous syringe (Evenity) Exam Height,Weight and Vital Signs: Height 5 ft 3 in Weight 77.111 kg Last Vital Signs Pulse 101 H 03/05/24 10:18 Resp 18 03/05/24 10:18 BP 147/73 H 03/05/24 10:18 Pulse Ox 95 03/05/24 10:18 O2 Del Method Room Air 03/05/24 10:18 Pertinent Lab Results Pertinent Lab Results: Laboratory Tests 03/12/24 03/22/24 14:03 10:43 Sodium 137 Potassium 4.3 Chloride 103 Carbon Dioxide 21 L BUN 7 L Creatinine 0.69 Assessment and Plan Assessment Anesthesia Assessment: Chart Reviewed Final Anesthetic Review Family History of Problems with Anesthesia: No History of Problems with Anesthesia: No
[2024-03-27] VITALS (12 sets, daily range): BP systolic 134–158; BP diastolic 70–87; PULSE 92–100; RESP 14–20; TEMP 36.4–36.6; O2SAT 90–99
--- NOTE | 2024-03-27 10:30 | ECG_ITS ---
Test Reason : htn, asthma Blood Pressure : / mmHG Vent. Rate : 077 BPM Atrial Rate : 077 BPM P-R Int : 150 ms QRS Dur : 092 ms QT Int : 412 ms P-R-T Axes : 045 051 033 degrees QTc Int : 466 ms Normal sinus rhythm Normal ECG No previous ECGs available Referred By: Debra Apple Electronically Signed By:ISAAC CARREON
[2024-03-27 11:13] LABS: Hematocrit 46.7 % (37.0-47.0); Hemoglobin 15.9 g/dl (12.0-16.0); Mean Platelet Volume 8.7 fL (9.4-12.3); Platelet Count 391 X10*3/uL (160-400); Red Blood Count 5.13 X10*6/uL (4.20-5.50); Red Cell Distribution Width 14.4 % (11.0-16.0); White Blood Count 10.6 X10*3/uL (4.8-10.8)
--- NOTE | 2024-03-27 11:42 | HO.ANESPROP2 ---
[facility] Active Problems Active Problems: All Active Problems Gastroparesis (Acute) Gait abnormality (Acute) Involuntary movements (Acute) Tremor (Acute) Whole body pain (Acute) Osteoarthritis of left knee (Acute) Malnutrition (Acute) Food allergy (Acute) ROSE positive (Acute) Large breasts (Acute) Excessive daytime sleepiness (Acute) Sleep disorder (Acute) Dysphagia (Acute) Chronic constipation (Acute) Abdominal pain (Acute) Liver cyst (Acute) Dyslipidemia (Acute) Elevated liver enzymes (Acute) Vitamin D deficiency (Acute) History of thyroid cancer (Acute) Hemorrhoid (Acute) Pulmonary nodules (Acute) Asthma (Acute) Acid reflux (Acute) Hyperplastic colon polyp (Acute) Chronic radicular pain of lower back (Acute) Foot pain, bilateral (Acute) Joint pain in both hands (Acute) Breast pain (Acute) HTN (hypertension) (Acute) Hypokalemia (Acute) Migraines (Acute) Breast pain, right (Acute) Leukocytosis (Acute) Allergies (Acute) Pulmonary nodule (Acute) Osteoporosis (Acute) Hyperparathyroidism (Acute) Multinodular thyroid (Acute) Depression (Acute) Anxiety (Acute) Asthma (Acute) Fibromyalgia (Acute) Past Medical History Medical History Numbness Wheezing Chronic radicular pain of lower back Foot pain, bilateral Joint pain in both hands Breast pain Hypokalemia Breast pain, right Allergies Migraines Renal calculi Bipolar disorder Chronic abdominal pain Osteoporosis Hyperparathyroidism Multinodular thyroid Depression Fibromyalgia Thrombocytosis Leukocytosis GERD (gastroesophageal reflux disease) Thyroid cancer PONV (postoperative nausea and vomiting) Elevated cholesterol Difficulty swallowing Vitamin D deficiency Anxiety Pulmonary nodule Asthma HTN (hypertension) Functional capacity: independent ambulation Patient : No Family History Family History Father Diabetes mellitus Skin cancer Prostate cancer Mother HTN (hypertension) High cholesterol Mental health disorder Maternal Grandfather Myocardial infarction Maternal Grandmother No problems noted. Paternal Grandfather No problems noted. Paternal Grandmother Breast cancer Sister Mental health disorder Family history of problems with anesthesia: No Surgical History Surgical History History of excision of mass Hx of thyroidectomy H/O esophagogastroduodenoscopy H/O colonoscopy History of bilateral oophorectomy Hx of cholecystectomy S/P excision of lipoma History of total abdominal hysterectomy Hx of appendectomy History of Problems with Anesthesia: No Social History Social History Household Members: None Housing: Apartment Are you a primary farm or ranch animal caretaker to a significant other at home: No Do you presently have visiting nurse or other home services: Yes (WARD AIDE) Alcohol intake: never Patient Tobacco Use Status: Current everyday Tobacco user Tobacco use type: Cigarette Cigarettes Per Day: 5 Years Smoked: 20 e-Cigarette/Vaping Use: Never Used Second Hand Smoke Exposure: No Advance Directives Date on File: 10/05/16 service: No Current occupational status: disabled Sexual orientation: Straight/Heterosexual Gender identity: Female Cognitive needs: No Hearing needs: No Vision needs: No Meds Allergies Allergy/AdvReac Type Severity Reaction Status Date / Time Sulfa (Sulfonamide Allergy Intermediate HIVES Verified 03/27/24 11:20 Antibiotics) [SULFA (SULFONAMIDE ANTIBIOTICS)] egg Allergy Abdominal Verified 03/27/24 11:20 Pain strawberry Allergy Abdominal Verified 03/27/24 11:20 Pain aspirin [ASPIRIN] AdvReac Intermediate ABD PAIN Verified 03/27/24 11:20 morphine [MORPHINE] AdvReac Intermediate ABD PAIN Verified 03/27/24 11:20 almond Allergy Severe Stomack Uncoded 03/27/24 11:20 pain Lactose intollerance Allergy Severe Stomach Uncoded 03/27/24 11:20 pain, nausceau Active Medications: Current Medications Albuterol Sulfate (Albuterol Sulfate (0.083%) 2.5 Mg/3 Ml Vial.Neb) 2.5 mg INHALE ONCE PRN PRN Reason: Shortness of Breath/Wheezing Lactated Ringer's (Lr) 1,000 mls @ 100 mls/hr IVCONT .Q10H LORNA Home Medications ?Medication ?Instructions ?Recorded ?Confirmed ?Last Taken ?Type memantine 10 mg tablet 10 mg PO Q OTHER DAY 07/13/23 03/05/24 Unknown History clonazepam 0.5 mg tablet 0.5 mg PO DAILY PRN Anxiety 10/19/23 03/05/24 Unknown History gabapentin 100 mg capsule 100 mg PO TID 12/25/23 03/05/24 Unknown History gabapentin 600 mg tablet 600 mg PO TID 12/25/23 03/05/24 Unknown History albuterol sulfate 2.5 mg/3 mL 2.5 mg inhalation DAILY PRN 01/10/24 03/05/24 Unknown History (0.083 %) solution for nebulization Shortness Of Breath Or Wheezing clonazepam 1 mg tablet 1 mg PO BEDTIME PRN Anxiety 01/10/24 03/05/24 Unknown History fluvoxamine 100 mg tablet 100 mg PO BID 01/10/24 03/05/24 Unknown History galcanezumab-gnlm 120 mg/mL 120 mg subcut QMONTH 03/05/24 03/05/24 Unknown History subcutaneous pen injector (Emgality Pen) hydrocortisone acetate 25 mg 25 mg DE BID PRN Hemorrhoids 03/05/24 03/05/24 Unknown History rectal suppository (Anusol-HC) polyethylene glycol 3350 17 17 g PO DAILY PRN Constipation 03/05/24 03/05/24 Unknown History gram/dose oral powder (Gavilax) sennosides 8.6 mg tablet (Senna 17.2 mg PO BEDTIME for constipation 03/05/24 03/05/24 Unknown History Laxative) Exam Height,Weight and Vital Signs: Height 5 ft 3 in Weight 77.111 kg Last Vital Signs Pulse 101 H 03/05/24 10:18 Resp 18 03/05/24 10:18 BP 147/73 H 03/05/24 10:18 Pulse Ox 95 03/05/24 10:18 O2 Del Method Room Air 03/05/24 10:18 Pertinent Lab Results Pertinent Lab Results: Laboratory Tests 03/27/24 11:03 WBC 10.6 RBC 5.13 Hgb 15.9 Hct 46.7 MCV 91.0 MCH 31.0 MCHC 34.0 RDW 14.4 Plt Count 391 MPV 8.7 L Absolute Nucleated RBC 0.000 Nucleated RBC % (auto) 0.0 Blood Type O Positive Airway Mallampati Class: II TM Dist: >3cm Neck ROM: Full Heart: RRR Lungs: CTA Assessment and Plan Assessment Anesthesia Assessment: Anesthesia Plan Discussed and Smoking Cess. Discussed Final Anesthetic Review Family History of Problems with Anesthesia: No History of Problems with Anesthesia: No NPO: Yes ASA Class: III Final Preanesthetic Review: Meds/Allgs Chart Reviewed, Consent Obtained/Reviewed and Anes Risks/Benef Reviewed Patient Risk: Intermediate Procedure Risk: Intermediate Anesthetic Plan Anesthetic Plan: GA Disposition: Standard PACU
[2024-03-27] MEDS: Lactated Ringers 1,000 ML 100 ML IVCONT (11:49)
--- OUTSIDE RECORDS SUMMARY | 2024-03-27 11:52 | XMS_ITS | Continuity of Care Document ---
Author Organization [facility] Address [address] [place] [id number]- Care Team Providers Care Funeral Service Practitioner/Embalmer Name Role Phone Harry GUERRERO, Raymundo Sofia Primary Care Physician Encounter [facility] [place] Date(s): 09/30/19 - 12/15/[address] [address]- [facility] Discharge Disposition: A-D/C Home Attending Physician: Raymundo Mcdonald NP Admitting Physician: Raymundo Mcdonald NP Referring Physician: Raymundo Mcdonald NP Allergies, Adverse Reactions, Alerts Substance Reaction Severity Status aspirin gi upset Active morphine CHRONIC ABD PAIN Active sulfa drugs blisters on skin Active Medications amLODIPine 5 mg oral tablet 5 mg, 1, tablet, By Mouth, Daily, # 30 tablet, Refills 0, Maintenance, 12/06/18 16:36:58 EDT Start Date: 12/06/18 Status: Ordered atorvastatin 40 mg oral tablet 1 tablet = 40 mg, By Mouth, Daily, 0 Refills, Maintenance Start Date: 12/06/18 Status: Ordered Benadryl 25 mg oral capsule See Instructions, PRN as needed for itching, 1 capsule By Mouth PRN, # 50 capsule, 0 Refills, Maintenance, 1 capsule By Mouth PRN,PRN:as needed for itching Start Date: 07/10/13 Status: Ordered Duoneb Inhalation Solution 3, mL, Neb, 4 times a day, PRN, Refills 0, Maintenance, 12/06/18 16:38:05 EDT Start Date: 12/06/18 Status: Ordered Flovent 110 mcg Inhaler HFA Inhalation, 2 times a day, Refills 0, Maintenance, 12/06/18 16:38:32 EDT Start Date: 12/06/18 Status: Ordered Fluoxetine By Mouth, 0 Refills, Maintenance, 12/06/18 16:37:20 EDT Start Date: 12/06/18 Status: Ordered hydroCHLOROthiazide 12.5 mg oral capsule 1 capsule = 12.5 mg, By Mouth, Daily, # 30 capsule, 0 Refills, Maintenance, 12/06/18 16:35:26 EDT, Capsule Start Date: 12/06/18 Status: Ordered HydroCORTisone 2.5% Topical Topically, 2 times a day, PRN Itch, 0 Refills, Maintenance Start Date: 12/06/18 Status: Ordered lisinopril 10 mg oral tablet 10 mg, 1, tablet, By Mouth, Daily, # 30 tablet, Refills 0, Maintenance, 12/06/18 16:36:18 EDT Start Date: 12/06/18 Status: Ordered montelukast 10 mg oral tablet 10 mg, 1, tablet, By Mouth, Daily, Refills 0, Maintenance, 12/06/18 16:37:54 EDT Start Date: 12/06/18 Status: Ordered omeprazole 20 mg oral enteric coated capsule 1 capsule = 20 mg, By Mouth, Daily, # 30 capsule, 11 Refills, Maintenance, 1 capsule By Mouth Daily Start Date: 04/18/13 Status: Ordered please check calcium and albumin level on 01/22/15 please check calcium and albumin level on 01/22/15, See Instructions, # 1 Unknown, Refills 0, Tot. Refills 0, Maintenance, please check calcium and albumin level in 1 week on 01/22, 01/15/19 18:03:35 EDT, Compound Start Date: 01/15/19 Status: Ordered Premarin 0.625 mg oral tablet 1 tablet = 0.625 mg, By Mouth, Daily, # 30 tablet, 0 Refills, Maintenance, 12/06/18 16:37:29 EDT, Tablet Start Date: 12/06/18 Status: Ordered Quetiapine By Mouth, Daily, Refills 0, Maintenance, 12/06/18 16:37:10 EDT Start Date: 12/06/18 Status: Ordered Senna By Mouth, 4 times a day, 0 Refills, Maintenance, 12/06/18 16:37:34 EDT Start Date: 12/06/18 Status: Ordered Problem List Condition Effective Dates Status Health Status Inform ant Burning reflux(Confirmed) Active Epigastric pain(Confirmed) Active Heartburn symptom(Confirmed) Active Personal history of kidney stones(Confirmed) Active Social History Social History Type Response Smoking Status 5-9 cigarettes (betw een 1/4 to 1/2 pack)/day in last 30 days entered on: 12/06/18 Sex
--- OUTSIDE RECORDS SUMMARY | 2024-03-27 11:52 | XMS_ITS | Continuity of Care Document ---
Author Organization [facility] Address [address] [place] [id number]- Care Team Providers Care Security Operations Center Analyst Name Role Phone Harry GUERRERO, Raymundo Sofia Primary Care Physician Encounter [facility] [place] Date(s): 10/24/19 - 11/03/19 [place] [address] Attending Physician: Magdalena Boyle Admitting Physician: Magdalena Boyle Referring Physician: AdmtrMagdalena Allergies, Adverse Reactions, Alerts Substance Reaction Severity [...]
[2024-03-27] MEDS: Aprepitant 32 MG/4.4 ML VIAL IVPUSH (11:55)
--- NOTE | 2024-03-27 12:46 | MHC.SHP ---
Pre-Procedural Eval Section A - 24 Hr Update-Section A only Date of Service: 03/27/24 The patient is an INPATIENT: No Changes since office visit: Yes Patient answered all questions; No Cold of Flu in the past 2 weeks, No New Medical Problems and No Changes in Medication The patient has been examined within 24 hours of the surgical procedure. The History & Physical has been completed within 30 days and I have reviewed it.: No Section B - Complete if H&P > 30 days Chief Complaint: Gastroparesis Details of Present Illness: no change since previous evaluation Relevant Family History (Specify if Yes): No Relevant Social History: None Present Medications: see Short Stay [facility] assessment Medical History: No relevant PMH History of Previous Operations: No relevant previous surgery Allergies: Allergies Allergy/AdvReac Type Severity Reaction Status Date / Time Sulfa (Sulfonamide Allergy Intermediate HIVES Verified 03/27/24 11:20 Antibiotics) [SULFA (SULFONAMIDE ANTIBIOTICS)] egg Allergy Abdominal Verified 03/27/24 11:20 Pain strawberry Allergy Abdominal Verified 03/27/24 11:20 Pain aspirin [ASPIRIN] AdvReac Intermediate ABD PAIN Verified 03/27/24 11:20 morphine [MORPHINE] AdvReac Intermediate ABD PAIN Verified 03/27/24 11:20 almond Allergy Severe Stomack Uncoded 03/27/24 11:20 pain Lactose intollerance Allergy Severe Stomach Uncoded 03/27/24 11:20 pain, nausceau Review of Systems Sugical H&P ROS: Negative: Constitution, Cardiovascular, Respiratory, Neurological, Psychiatric, Hem-Onc, Allergic/Immunologic, Gastrointestinal, Genitourinary, Musculoskeletal, Integumentary, Endocrine and Eyes/Ears/Nose/Throat Exam Surgical H&P Exam: Normal: HEENT, Normal: Heart, Normal: Lungs, Normal: Extremities, Normal: Abdomen, Normal: Skin and Normal: Neurological Plan Diagnosis/Plan: Unchanged I have reviewed the history and physical and performed a pertinent physical examination on my patient. No changes have occurred unless specified. Time Spent With Patient Time: Total time managing care of this patient today ____ minutes.
--- NOTE | 2024-03-27 14:30 | P.OP_ITS ---
Operative Note Operative Note Date of Service: 03/27/24 Narrative: Preoperative diagnosis: Gastroparesis Postoperative diagnosis: Gastroparesis Procedure: Pyloroplasty Surgeon: Raymundo Walton MD Ground Water Technician: Nuria Hernandez PA-C, Trevor Benoit, MS-3,NATE Conley Anesthesia: General endotracheal Indications for procedure: 58-year-old female patient presenting with persistent nausea and vomiting and after extensive workup found to have gastroparesis with delayed gastric emptying. Patient presents now for pyloroplasty. Operative findings: Hypertrophic pylorus Specimen: None Estimated blood loss: 2 mL Complications: None Procedure details: Patient was brought to the OR and placed in a supine position. After administering general anesthesia the patient's abdomen was prepped with ChloraPrep and draped in a sterile fashion. A surgical time-out was called the consent confirmed. Patient received preoperative antibiotics and Venodyne boots were in place. Local anesthesia consisting of 0.5% Sensorcaine was infiltrated in the midline upper abdomen. A 7 cm incision was made in the upper midline carried out through subcutaneous tissue through linea alba into the peritoneum. A Bookwalter retractor was then placed. The stomach was immed iately identified and grasped with a [place] clamp. Adhesions were noted to the undersurface of the liver from prior cholecystectomy. These were taken down using electrocautery. The pylorus was palpated and 2 stay sutures placed at the level of the pylorus above and below. Electrocautery was then used to open the pylorus longitudinally. The stay sutures were then pulled apart. Hemostasis was assured using electrocautery. The pylorus was then closed transversely using interrupted 3-0 silk sutures. This was done in a Lembert fashion. Omental fat was then placed over the repair and secured using a 3-0 silk suture. The abdomen was then irrigated with saline solution and suctioned dry. Fascia was then closed in the midline using a running 0 PDS looped suture. Subcutaneous tissue and dermis reapproximated using interrupted 3-0 Polysorb sutures. Skin was then closed using a running subcuticular 4-0 Polysorb suture. Steri-Strips, 2 x 2 gauze and Tegaderm were then applied. Patient tolerated the procedure well. Sponge, instrument, and needle counts reported as correct. The patient was transferred to PACU in stable condition.
--- NOTE | 2024-03-27 15:00 | PM.OP ---
Brief Operative Note Date of Service: 03/27/24 Pre-op diagnosis: gastroparesis Post-op diagnosis: same Procedure: pyloroplasty Implants: None Surgeon: Raymundo Walton MD Anesthesia: GETA Was an Tufter Hand used for this Procedure?: Yes Tufter Hand: Nuria Hernandez Estimated blood loss (mL): 2 Pathology: none sent Condition: stable Disposition: PACU Complications (if any): None
[2024-03-27] MEDS: HYDROmorphone HCl 0.5 MG/0.5 ML SYRINGE 0.25 MG IVPUSH ×4 (15:10→15:25)
[2024-03-27] MEDS: fentaNYL citrate/PF 100 MCG/2 ML VIAL 25 MCG IVPUSH (15:30)
[2024-03-27] MEDS: oxyCODONE HCl Immed Release 5 MG TABLET PO (16:30)
--- NOTE | 2024-03-27 17:23 | HO.PM.IMCN ---
History of Present Illness Data of Consult Service Date: 03/27/24 Requesting physician: Raymundo Walton Primary Care Provider: Raymundo Mcdonald [facility] HPI Reason for consult: Medical management 58-year-old female with history of hyperparathyroidism, history of thyroid cancer s/p partial thyroidectomy not requiring levothyroxine, GERD, gastroparesis, asthma, hypertension, and mood disorder admitted to general surgery for management of gastroparesis s/p pyloroplasty with consult placed to hospitalist service for medical management. The patient is currently reporting epigastric burning and nausea but has not vomited. She is eating small sips of clear liquids at time of exam. She denies any lightheadedness, headache, palpitations, shortness of breath, chest pain. Family is at bedside who assists with Guamanian interpretation. They declined billet examiner. Vital signs at this time are stable. Hematology studies unremarkable. Review of Systems Review of Systems: Yes all other systems are reviewed and are negative [facility] Medical History Numbness Wheezing Chronic radicular pain of lower back Foot pain, bilateral Joint pain in both hands Breast pain Hypokalemia Breast pain, right Allergies Migraines Renal calculi Bipolar disorder Chronic abdominal pain Osteoporosis Hyperparathyroidism Multinodular thyroid Depression Fibromyalgia Thrombocytosis Leukocytosis GERD (gastroesophageal reflux disease) Thyroid cancer PONV (postoperative nausea and vomiting) Elevated cholesterol Difficulty swallowing Vitamin D deficiency Anxiety Pulmonary nodule Asthma HTN (hypertension) Functional capacity: independent ambulation Family History Father Diabetes mellitus Skin cancer Prostate cancer Mother HTN (hypertension) High cholesterol Mental health disorder Maternal Grandfather Myocardial infarction Maternal Grandmother No problems noted. Paternal Grandfather No problems noted. 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 If so, by whom?: No Are you DNR?: No Advance Directives: Yes Advance Directives Information Provided: No Advance Directives on File: Yes Advance Directives Date on File: 10/05/16 Recently lost weight without trying: No Eating poorly because of decreased appetite: Yes Nutrition Risks: Anorexia Patient : No : No Poor oral hygiene: Yes (missing molars and a bridge and crown in front top) service: No Current occupational status: disabled Sexual orientation: Straight/Heterosexual Gender identity: Female Cognitive needs: No Hearing needs: No Vision needs: No Meds Allergies Allergy/AdvReac Type Severity Reaction Status Date / Time Sulfa (Sulfonamide Allergy Intermediate HIVES Verified 03/27/24 11:20 Antibiotics) [SULFA (SULFONAMIDE ANTIBIOTICS)] egg Allergy Abdominal Verified 03/27/24 11:20 Pain strawberry Allergy Abdominal Verified 03/27/24 11:20 Pain aspirin [ASPIRIN] AdvReac Intermediate ABD PAIN Verified 03/27/24 11:20 morphine [MORPHINE] AdvReac Intermediate Abdominal Verified 03/27/24 16:21 Pain almond Allergy Severe [place] Uncoded 03/27/24 11:20 pain Lactose intollerance Allergy Severe Stomach Uncoded 03/27/24 11:20 pain, [place] Active Medications: Current Medications Albuterol Sulfate (Albuterol Sulfate (0.083%) 2.5 Mg/3 Ml Vial.Neb) 2.5 mg INHALE DAILY PRN PRN Reason: Shortness Of Breath Or Wheezing Amitriptyline HCl (Amitriptyline Hcl 50 Mg Tablet) 50 mg PO BEDTIME [facility] Amlodipine Besylate (Amlodipine Besylate 10 Mg Tablet) 10 mg PO DAILY [facility]; Protocol Azelastine HCl (Azelastine Hcl Nasal 137 Mcg/[place] 30 Ml) 1 spray NOSTRIL-B BID [facility] Calcium Carbonate (Calcium Carbonate 750 Mg Tab.Chew) 750 mg PO Q4H PRN PRN Reason: Heartburn Clonazepam (Clonazepam 0.5 Mg Tablet) 0.5 mg PO DAILY PRN PRN Reason: Anxiety Clonazepam (Clonazepam 1 Mg Tablet) 1 mg PO BEDTIME PRN PRN Reason: Anxiety Famotidine (Famotidine 20 Mg Tablet) 40 mg PO BEDTIME [facility] Gabapentin (Gabapentin 600 Mg Tablet) 600 mg PO TID [facility] Gabapentin (Gabapentin 100 Mg Capsule) 100 mg PO TID [facility] Hydromorphone HCl (Hydromorphone Hcl 0.5 Mg/0.5 Ml Syringe) 0.5 mg IVPUSH Q3H PRN; Protocol PRN Reason: Pain, Severe (Pain Scale 7-10) Acetaminophen (Ofirmev) 1,000 mg in 100 mls @ 400 mls/hr IV Q6H [facility] Dextrose/Lactated Ringer's (D5lr) 1,000 mls @ 125 mls/hr IVCONT .Q8H [facility] Loratadine (Loratadine 10 Mg Tablet) 10 mg PO DAILY [facility] Magnesium Hydroxide (Milk Of Magnesia 30 Ml Oral.Susp) 30 ml PO DAILY PRN PRN Reason: Constipation Melatonin (Melatonin 3 Mg Tablet) 6 mg PO BEDTIME PRN PRN Reason: Insomnia Memantine (Memantine Hcl 10 Mg Tablet) 10 mg PO Q OTHER DAY [facility] Montelukast Sodium (Montelukast Sodium 10 Mg Tablet) 10 mg PO BEDTIME [facility] Non-Formulary Medication (Beclomethasone Dipropionate [Qvar Redihaler]) 1 inhalation INHALE BID [facility] Non-Formulary Medication (Fluvoxamine) 100 mg PO BID [facility] Ondansetron HCl (Ondansetron Hcl 4 Mg/2 Ml Vial) 4 mg IVPUSH QID PRN PRN Reason: Nausea Oxycodone HCl (Oxycodone Hcl Immed Release 5 Mg Tablet) 5 mg PO Q6H PRN PRN Reason: Pain, Moderate(Pain Scale 4-6) Sodium Chloride (0.9 % Sodium Chloride Flush 3 Ml Syringe) 3 ml IVFLUSH QSHIFT [facility] Spironolactone (Spironolactone 25 Mg Tablet) 50 mg PO DAILY [facility]; Protocol Tizanidine HCl (Tizanidine Hcl 4 Mg Tablet) 4 mg PO BID PRN PRN Reason: for muscle spasm Home Medications ?Medication ?Instructions ?Recorded ?Confirmed ?Last Taken ?Type memantine 10 mg tablet 10 mg PO Q OTHER DAY 07/13/23 03/27/24 03/27/24 History clonazepam 0.5 mg tablet 0.5 mg PO DAILY PRN Anxiety 10/19/23 03/27/24 03/27/24 History gabapentin 100 mg capsule 100 mg PO TID 12/25/23 03/05/24 03/27/24 History gabapentin 600 mg tablet 600 mg PO TID 12/25/23 03/05/24 03/27/24 History albuterol sulfate 2.5 mg/3 mL 2.5 mg inhalation DAILY PRN 01/10/24 03/05/24 Unknown History (0.083 %) solution for nebulization Shortness Of Breath Or Wheezing clonazepam 1 mg tablet 1 mg PO BEDTIME PRN Anxiety 01/10/24 03/27/24 03/27/24 History fluvoxamine 100 mg tablet 100 mg PO BID 01/10/24 03/05/24 03/27/24 History galcanezumab-gnlm 120 mg/mL 120 mg subcut QMONTH 03/05/24 03/05/24 Unknown History subcutaneous pen injector (Emgality Pen) hydrocortisone acetate 25 mg 25 mg MN BID PRN Hemorrhoids 03/05/24 03/05/24 Unknown History rectal suppository (Anusol-HC) polyethylene glycol 3350 17 17 g PO DAILY PRN Constipation 03/05/24 03/05/24 Unknown History gram/dose oral powder (Gavilax) sennosides 8.6 mg tablet (Senna 17.2 mg PO BEDTIME for constipation 03/05/24 03/05/24 Unknown History Laxative) Physical Exam Vital Signs and Narrative: Vital Signs: Last Vital Signs Temp 97.6 F 03/27/24 15:43 Pulse 97 03/27/24 15:43 Resp 14 03/27/24 15:43 BP 140/84 H 03/27/24 15:43 Pulse Ox 99 03/27/24 15:43 O2 Del Method Nasal Cannula 03/27/24 15:43 O2 Flow Rate 2 03/27/24 15:43 BMI result Body Mass Index 30.1 Constitutional - Awake and Alert, No apparent distress Eyes - PERRLA, EOMI Cardiovascular - S1S2, RRR, No edema Respiratory - Normal lung expansion, Normal respiratory effort, No respiratory distress, CTA bilaterally Extremities - no calf tenderness bilaterally, no swelling Skin - Warm/Dry Neurological - Alert & oriented x3 Psychological - Appropriate affect Results Labs 03/27/24 11:03 Labs: Laboratory Results - last 24 hr 03/27/24 11:03 MCV 91.0 MCH 31.0 MCHC 34.0 RDW 14.4 Plt Count 391 MPV 8.7 L Absolute Nucleated RBC 0.000 Nucleated RBC % (auto) 0.0 Blood Type O Positive Antibody Screen NEGATIVE Assessment and Plan (1) Gastroparesis: Status: Acute Plan 58-year-old female with history of hyperparathyroidism, history of thyroid cancer s/p partial thyroidectomy not requiring levothyroxine, GERD, gastroparesis, asthma, hypertension, and mood disorder admitted to general surgery for management of gastroparesis s/p pyloroplasty with consult placed to hospitalist service for medical management. # gastroparesis s/p pyloroplasty -plan per General surgery -continue amlodipine gabapentin # hypertension -resume amlodipine tomorrow morning as well as spironolactone # GERD -PPI on hold per General surgery # hypokalemia -last potassium 4.3. Potassium chloride on hold per General surgery -repeat lytes a.m. and resume if needed # asthma -continue Singulair, albuterol p.r.n. # mood disorder -continue home meds Thank you for allowing me to participate in this consult. Signing off at this time. Please do not hesitate to call for further questions or for any acute medical issues
[2024-03-27] MEDS: ondansetron HCL 4 MG/2 ML VIAL IVPUSH (18:07)
[2024-03-27] MEDS: Dextrose 5 % and Lactated Ring 1,000 ML 125 ML IVCONT (18:36)
[2024-03-27] MEDS: Gabapentin 600 MG TABLET PO ×2 (18:37→20:11)
[2024-03-27] MEDS: Gabapentin 100 MG CAPSULE PO ×2 (18:37→20:12)
[2024-03-27] MEDS: HYDROmorphone HCl 0.5 MG/0.5 ML SYRINGE IVPUSH ×2 (18:42→21:48)
[2024-03-27] MEDS: Montelukast Sodium 10 MG TABLET PO (20:12)
[2024-03-27] MEDS: Famotidine 20 MG TABLET 40 MG PO (20:12)
[2024-03-27] MEDS: fluvoxaMINE Maleate 50 MG TABLET 100 MG PO (20:12)
[2024-03-27] MEDS: Acetaminophen 1,000 MG/100 ML PIGGYBACK 400 MG IV (20:13)
[2024-03-27] MEDS: Amitriptyline HCl 50 MG TABLET PO (20:15)
--- NOTE | 2024-03-27 21:00 | PHA.MEDREC ---
Pharmacy Consult ? Medication Reconciliation Pharmacy has completed the medication reconciliation. Confirmed medications with patient and help of school physical therapist. Patient states they are taking their Emgality pen once a month and she said she will try to do it on the of every month and she received it the 22 of March. Patient also confirmed his Evenity injection once a month and she does it typically the upcoming Monday its due and she got that last the 22 of March.
[2024-03-28] MEDS: Dextrose 5 % and Lactated Ring 1,000 ML 125 ML IVCONT ×2 (00:34→08:53)
[2024-03-28] MEDS: HYDROmorphone HCl 0.5 MG/0.5 ML SYRINGE IVPUSH ×3 (01:25→14:07)
[2024-03-28] MEDS: clonazePAM 1 MG TABLET PO (01:29)
[2024-03-28] MEDS: Acetaminophen 1,000 MG/100 ML PIGGYBACK 400 MG IV ×4 (01:51→19:52)
[2024-03-28 03:52] VITALS: BP 129/75; PULSE 81; RESP 16; TEMP 36; O2SAT 95
[2024-03-28 06:10] LABS: MANUAL DIFF FLAG NO
[2024-03-28 06:27] LABS: Basophils Percent Auto 0.1 % (0-2); Hematocrit 43.7 % (37.0-47.0); Hemoglobin 14.5 g/dl (12.0-16.0); Imm Gran Abs Auto 0.13 X10*3/uL (0.00-0.03); Imm Gran Pct Auto 0.7 % (0.0-0.4); Lymphocytes Absolute Auto 1.5 X10*3/uL (1.2-4.9); Lymphocytes Percent Auto 7.8 % (20-40); Mean Corpuscular HGB Conc 33.2 g/dl (31.0-35.0); Mean Corpuscular Hemoglobin 30.5 pg (27.0-33.0); Mean Corpuscular Volume 91.8 fL (80.0-98.0); Mean Platelet Volume 9.1 fL (9.4-12.3); Monocytes Percent Auto 4.9 % (2-11); Neutrophils Absolute Auto 16.6 x10*3/uL (2.0-8.3); Neutrophils Percent Auto 86.5 % (45-73); Platelet Count 408 X10*3/uL (160-400); Red Blood Count 4.76 X10*6/uL (4.20-5.50); Red Cell Distribution Width 14.2 % (11.0-16.0); White Blood Count 19.2 X10*3/uL (4.8-10.8)
[2024-03-28 06:32] LABS: Anion Gap 13 (12-20); Blood Urea Nitrogen 6 mg/dL (9-16); Calcium 9.4 mg/dL (8.4-10.2); Carbon Dioxide 24 mmol/L (22-29); Chloride 105 mmol/L (96-108); Creatinine Clr Calc Pharmacy 85.8; Estimated Glomerular Filt Rate > 60; Glucose Random 154 mg/dL (60-115); Potassium 4.1 mmol/L (3.3-5.1); Sodium 138 mmol/L (135-145)
[2024-03-28] MEDS: ondansetron HCL 4 MG/2 ML VIAL IVPUSH ×2 (07:24→14:10)
[2024-03-28 08:00] VITALS: BP 140/74; PULSE 75; RESP 18; TEMP 36.9; O2SAT 95
--- NOTE | 2024-03-28 08:33 | HO.POSTANES ---
Post Anesthesia Evaluation Post Anesthesia Evaluation Date of Service: 03/27/24 Vital Signs: Vital Signs Temp Pulse Resp BP Pulse Ox O2 Del Method 03/28/24 08:00 98.4 F 75 18 140/74 H 95 Room Air 03/28/24 03:52 96.8 F 81 16 129/75 95 Room Air Anesthesia: Regional and General Mental Status: Awake Pain Control: Satisfactory Nausea/Vomiting: None Hydration: Adequate Anesthesia-Related Issues: No Anes. Related Issues
--- NOTE | 2024-03-28 08:35 | PM.PNGS ---
Subjective Subjective Date of Service: 03/28/24 <Trevor Benoit - Last Filed: 03/28/24 10:30> 03/28/24 <Nuria Hernandez PA-C - Last Filed: 03/28/24 10:28> 03/28/24 <Raymundo Walton MD - Last Filed: 03/28/24 15:32> Interval history: Patient had some nausea overnight and felt as if she could vomit, she did not receive Zofran at that time, otherwise no acute overnight events. She reports pain that is rated 12/10 localized to the area of her incision, but appears comfortable in bed. She is currently taking q3h prn 0.5m dilaudid and q6h prn 5mg oxy. She has been OOB to urinate with some dizziness. She reports light yellow urine. She has been on a clear liquid diet that is tolerated well at this time, she reports being hungry. She has passed flatus but not BM. <Trevor Benoit - Last Filed: 03/28/24 10:30> Physical Exam Vital Signs: Vital Signs: Last Vital Signs Temp 98.4 F 03/28/24 08:00 Pulse 75 03/28/24 08:00 Resp 18 03/28/24 08:00 BP 140/74 H 03/28/24 08:00 Pulse Ox 95 03/28/24 08:00 O2 Del Method Room Air 03/28/24 08:00 O2 Flow Rate 2 03/27/24 15:43 BMI result Body Mass Index 30.1 <Trevor Kaycee Last Filed: 03/28/24 10:30> Const: General: healthy appearing, comfortable and no acute distress <Trevor Benoit - Last Filed: 03/28/24 10:30> Nutritional Appearance: obese <Trevor Benoit - Last Filed: 03/28/24 10:30> Orientation/consciousness: patient oriented x3 <Trevor Benoit Last Filed: 03/28/24 10:30> Cardio: Rate: regular rate <Trevor Benoit Last Filed: 03/28/24 10:30> Rhythm: regular rhythm <Trevor Benoit Last Filed: 03/28/24 10:30> Heart sounds: S1 normal heart sound present, S2 normal heart sound present, no gallops, no murmurs and no rubs <jabier Benoit Last Filed: 03/28/24 10:30> GI: Other: Appropriately tender at incision site. Incision is covered, the gauze is clean and dry. <Trevor Benoit Last Filed: 03/28/24 10:30> Inspection: Yes normal to inspection and No distended <jabier Kaycee Last Filed: 03/28/24 10:30> Palpation (GI): Soft to palpation, no guarding and not rigid <jabier Benoit Last Filed: 03/28/24 10:30> Percussion: Yes normal to percussion <jabier Benoit Last Filed: 03/28/24 10:30> Neuro: General: patient oriented x3 <jabier Benoit Filed: 03/28/24 10:30> Objective Data Active Medications Albuterol Sulfate (Albuterol Sulfate (0.083%) 2.5 Mg/3 Ml Vial.Neb) 2.5 mg INHALE DAILY PRN PRN Reason: Shortness Of Breath Or Wheezing Amitriptyline HCl (Amitriptyline Hcl 50 Mg Tablet) 50 mg PO BEDTIME [facility] Last Admin: 03/27/24 20:15 Dose: 50 mg Documented By: BRADFORD Amlodipine Besylate (Amlodipine Besylate 10 Mg Tablet) 10 mg PO DAILY [facility]; Protocol Azelastine HCl (Azelastine Hcl Nasal 137 Mcg/[place] 30 Ml) 1 spray NOSTRIL-B BID [facility] Last Admin: 03/27/24 22:22 Dose: Not Given Documented By: BRADFORD Non-Admin Reason: Med Not Available Calcium Carbonate (Calcium Carbonate 750 Mg Tab.Chew) 750 mg PO Q4H PRN PRN Reason: Heartburn Clonazepam (Clonazepam 0.5 Mg Tablet) 0.5 mg PO DAILY PRN PRN Reason: Anxiety Clonazepam (Clonazepam 1 Mg Tablet) 1 mg PO BEDTIME PRN PRN Reason: Anxiety Last Admin: 03/28/24 01:29 Dose: 1 mg Documented By: BRADFORD Famotidine (Famotidine 20 Mg Tablet) 40 mg PO BEDTIME [facility] Last Admin: 03/27/24 20:12 Dose: 40 mg Documented By: BRADFORD Fluticasone Propionate (Fluticasone Propionate 250 Mcg Blst.W.Dev) 1 puff INHALE RBID [facility] Last Admin: 03/28/24 08:01 Dose: Not Given Documented By: NOREEN Non-Admin Reason: Med Not Available Fluvoxamine Maleate (Fluvoxamine Maleate 50 Mg Tablet) 100 mg PO BID [facility] Last Admin: 03/27/24 20:12 Dose: 100 mg Documented By: BRADFORD Gabapentin (Gabapentin 600 Mg Tablet) 600 mg PO TID [facility] Last Admin: 03/27/24 20:11 Dose: 600 mg Documented By: BRADFORD Gabapentin (Gabapentin 100 Mg Capsule) 100 mg PO TID [facility] Last Admin: 03/27/24 20:12 Dose: 100 mg Documented By: BRADFORD Hydromorphone HCl (Hydromorphone Hcl 0.5 Mg/0.5 Ml Syringe) 0.5 mg IVPUSH Q3H PRN; Protocol PRN Reason: Pain, Severe (Pain Scale 7-10) Last Admin: 03/28/24 07:24 Dose: 0.5 mg Documented By: GRAZCHELSEA Acetaminophen (Ofirmev) 1,000 mg in 100 mls @ 400 mls/hr IV Q6H [facility] Last Infusion: 03/28/24 02:09 Dose: Infused Documented By: BRADFORD Dextrose/Lactated Ringer's (D5lr) 1,000 mls @ 125 mls/hr IVCONT .Q8H [facility] Last Admin: 03/28/24 00:34 Dose: 125 mls/hr Documented By: BRADFORD Loratadine (Loratadine 10 Mg Tablet) 10 mg PO DAILY [facility] Magnesium Hydroxide (Milk Of Magnesia 30 Ml Oral.Susp) 30 ml PO DAILY PRN PRN Reason: Constipation Melatonin (Melatonin 3 Mg Tablet) 6 mg PO BEDTIME PRN PRN Reason: Insomnia Memantine (Memantine Hcl 10 Mg Tablet) 10 mg PO Q2D [facility] Montelukast Sodium (Montelukast Sodium 10 Mg Tablet) 10 mg PO BEDTIME [facility] Last Admin: 03/27/24 20:12 Dose: 10 mg Documented By: BRADFORD Ondansetron HCl (Ondansetron Hcl 4 Mg/2 Ml Vial) 4 mg IVPUSH QID PRN PRN Reason: Nausea Last Admin: 03/28/24 07:24 Dose: 4 mg Documented By: CLEMENT Oxycodone HCl (Oxycodone Hcl Immed Release 5 Mg Tablet) 5 mg PO Q6H PRN PRN Reason: Pain, Moderate(Pain Scale 4-6) Last Admin: 03/27/24 16:30 Dose: 5 mg Documented By: CLEMENT Sodium Chloride (0.9 % Sodium Chloride Flush 3 Ml Syringe) 3 ml IVFLUSH QSHIFT [facility] Last Admin: 03/28/24 00:08 Dose: Not Given Documented By: ODRISM Non-Admin Reason: IV Running Spironolactone (Spironolactone 25 Mg Tablet) 50 mg PO DAILY [facility]; Protocol Tizanidine HCl (Tizanidine Hcl 4 Mg Tablet) 4 mg PO BID PRN PRN Reason: for muscle spasm <Trevor Benoit - Last Filed: 03/28/24 10:30> Labs CBC & Chem 7: 03/28/24 05:14 03/28/24 05:14 <Trevor Benoit - Last Filed: 03/28/24 10:30> Labs: Laboratory Results - last 24 hr 03/27/24 03/28/24 11:03 05:14 MCV 91.0 91.8 MCH 31.0 30.5 MCHC 34.0 33.2 RDW 14.4 14.2 Plt Count 391 408 H MPV 8.7 L 9.1 L Immature Gran % (Auto) 0.7 H Neut % (Auto) 86.5 H Lymph % (Auto) 7.8 L Levy % (Auto) 4.9 Eos % (Auto) 0.0 Baso % (Auto) 0.1 Lymph # (Auto) 1.5 Levy # (Auto) 1.0 Eos # (Auto) 0.0 Baso # (Auto) 0.0 Abs Immat Gran (auto) 0.13 H Absolute Neuts (auto) 16.6 H Absolute Nucleated RBC 0.000 0.000 Nucleated RBC % (auto) 0.0 0.0 Anion Gap 13 Estim Creat Clear Calc 85.8 Estimated GFR > 60 Random Glucose 154 H Calcium 9.4 Blood Type O Positive Antibody Screen NEGATIVE <Trevor Benoit - Last Filed: 03/28/24 10:30> Procedures Date of Service Date of Service: 03/28/24 <Trevor Benoit - Last Filed: 03/28/24 10:30> 03/28/24 <Nuria Hernandez PA-C - Last Filed: 03/28/24 10:28> 03/28/24 <Raymundo Walton MD - Last Filed: 03/28/24 15:32> Progress Note: A&P Assessment and plan (1) Gastroparesis: Status: Acute <Trevor Benoit - Last Filed: 03/28/24 10:30> (2) H/O pyloroplasty: Status: Acute <Trevor Benoit - Last Filed: 03/28/24 10:30> Assessment and Plan: Iris is POD1 s/p pyloroplasty. VSS, H/H stable. White count elevated, likely normal surgical response, continue to monitor. Overall she is doing well post-op. She is in pain, but appears comfortable. Increase dosage of pain medications. She has evidence of bowel function; passing flatus. Continue clear liquid diet for now. Encourage oob and ambulation and IS. <Trevor Benoit - Last Filed: 03/28/24 10:30> Iris is POD1 s/p pyloroplasty. VSS, H/H stable. White count elevated, likely normal surgical response, continue to monitor. Overall she is doing well post-op. She is in pain, but appears comfortable. Increase dosage of pain medications. She has evidence of bowel function; passing flatus. Continue clear liquid diet for now. Encourage oob and ambulation and IS. Seen independently, agree with above plan by Kaycee MS-3. Patient POD #1 s/p pyloroplasty. Doing fairly well post op but c/o severe pain. Hemodynamically stable, abd exam is benign with appropriate post op tenderness. Cont pain control, increase activity. Will continue liquids for now, IVF. Patient comfortable with plan. <Nuria Hernandez PA-C - Last Filed: 03/28/24 10:28> Iris is POD1 s/p pyloroplasty. VSS, H/H stable. White count elevated, likely normal surgical response, continue to monitor. Overall she is doing well post-op. She is in pain, but appears comfortable. Increase dosage of pain medications. She has evidence of bowel function; passing flatus. Continue clear liquid diet for now. Encourage oob and ambulation and IS. Seen independently, agree with above plan by Kaycee MS-3. Patient POD #1 s/p pyloroplasty. Doing fairly well post op but c/o severe pain. Hemodynamically stable, abd exam is benign with appropriate post op tenderness. Cont pain control, increase activity. Will continue liquids for now, IVF. Patient comfortable with plan. Patient seen and examined independently. Agree with the above assessment and plan. We will advance diet today to a soft diet. Suggested patient switch to p.o. meds for pain. <Raymundo Walton MD - Last Filed: 03/28/24 15:32> Time Spent With Patient Time: Total time managing care of this patient today ____ minutes. <Trevor Benoit - Last Filed: 03/28/24 10:30> Quality Stroke Does the patient have a stroke diagnosis?: No <Nuria Hernandez PA-C - Last Filed: 03/28/24 10:28> VTE Prior VTE?: No <Nuria Hernandez PA-C - Last Filed: 03/28/24 10:28> VTE Risk Level:: Surgical - moderate <Trevor Benoit - Last Filed: 03/28/24 10:30> VTE Device Contraindication: N/A - Device Ordered <Trevor Benoit - Last Filed: 03/28/24 10:30> VTE Drug Contraindication: Treatment Not Indicated <Trevor Benoit - Last Filed: 03/28/24 10:30>
[2024-03-28] MEDS: Spironolactone 25 MG TABLET 50 MG PO (08:45)
[2024-03-28] MEDS: Gabapentin 600 MG TABLET PO ×3 (08:46→20:23)
[2024-03-28] MEDS: Gabapentin 100 MG CAPSULE PO ×3 (08:46→20:23)
[2024-03-28] MEDS: Loratadine 10 MG TABLET PO (08:46)
[2024-03-28] MEDS: fluvoxaMINE Maleate 50 MG TABLET 100 MG PO ×2 (08:46→20:23)
[2024-03-28] MEDS: amLODIPine Besylate 10 MG TABLET PO (08:46)
[2024-03-28] MEDS: Azelastine HCl Nasal 137 MCG/Spray 30 ML 1 SPRAY NOSTRIL-B ×2 (08:49→20:23)
[2024-03-28] MEDS: oxyCODONE HCl Immed Release 5 MG TABLET PO (09:43)
[2024-03-28] MEDS: Fluticasone Propionate 250 MCG BLST.W.DEV 1 PUFF INHALE ×2 (11:56→20:10)
[2024-03-28 12:04] VITALS: PULSE 75; RESP 17; O2SAT 95
[2024-03-28] MEDS: 0.9 % Sodium Chloride Flush 3 ML SYRINGE IVFLUSH ×2 (15:23→19:53)
[2024-03-28 15:29] VITALS: BP 125/66; PULSE 78; RESP 16; TEMP 36.9; O2SAT 95
[2024-03-28 19:26] VITALS: BP 144/71; PULSE 92; RESP 16; TEMP 36.4; O2SAT 97
[2024-03-28] MEDS: oxyCODONE HCl Immed Release 5 MG TABLET 10 MG PO (19:59)
[2024-03-28 20:11] VITALS: PULSE 81; RESP 18; O2SAT 95
[2024-03-28] MEDS: Amitriptyline HCl 50 MG TABLET PO (20:23)
[2024-03-28] MEDS: Famotidine 20 MG TABLET 40 MG PO (20:23)
[2024-03-28] MEDS: Montelukast Sodium 10 MG TABLET PO (20:23)
[2024-03-28] MEDS: Milk of Magnesia 30 ML ORAL.SUSP PO (22:56)
[2024-03-29] MEDS: Acetaminophen 1,000 MG/100 ML PIGGYBACK 400 MG IV ×2 (01:54→08:30)
[2024-03-29 04:00] VITALS: BP 135/74; PULSE 77; RESP 16; TEMP 36.6; O2SAT 94
[2024-03-29] MEDS: Fluticasone Propionate 250 MCG BLST.W.DEV 1 PUFF INHALE ×2 (07:26→20:22)
[2024-03-29 07:27] VITALS: PULSE 77; RESP 18; O2SAT 95
--- NOTE | 2024-03-29 07:30 | PM.PNGS ---
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 No acute overnight events. Patient reports her pain is better than yesterday and she is asking for medication when she needs it. Currently on oxycodone 10mg q6h prn. She has passed flatus but no BM. She was switched to a soft diet that she reports not being able to tolerate it due to nausea, yesterday she only drank bone broth. She has been taking PO Zofran for nausea and it has been helping. Has continued to ambulate to the restroom and back to bed without issues. Urine is yellow. She reports using spirometer and reached 2000mL on observation. <Trevor Benoit - Last Filed: 03/29/24 09:20> Physical Exam Vital Signs: Vital Signs: Last Vital Signs Temp 97.8 F 03/29/24 04:00 Pulse 77 03/29/24 07:27 Resp 18 03/29/24 07:27 BP 135/74 03/29/24 04:00 Pulse Ox 94 03/29/24 04:00 O2 Del Method Room Air 03/29/24 04:00 O2 Flow Rate 2 03/27/24 15:43 BMI result Body Mass Index 30.1 <Trevor Benoit - Last Filed: 03/29/24 09:20> Const: General: no acute distress <Trevor Benoit - Last Filed: 03/29/24 09:20> Nutritional Appearance: obese <Trevor Benoit - Last Filed: 03/29/24 09:20> Orientation/consciousness: patient oriented x3 <Trevor Benoit - Last Filed: 03/29/24 09:20> GI: Other: abdomen mildly tender to light palpation throughout. surgical incision is covered and gauze is dry and clean. <Trevor Benoit - Last Filed: 03/29/24 09:20> Inspection: No distended and Yes incision <Trevor Benoit - Last Filed: 03/29/24 09:20> Palpation (GI): Soft to palpation, Tenderness to palpation present (GI), Guarding due to palpation present (GI) and not rigid <Trevor Kaycee - Last Filed: 03/29/24 09:20> Neuro: General: patient oriented x3 <Trevor Kaycee - Last Filed: 03/29/24 09:20> Objective Data Active Medications Albuterol Sulfate (Albuterol Sulfate (0.083%) 2.5 Mg/3 Ml Vial.Neb) 2.5 mg INHALE DAILY PRN PRN Reason: Shortness Of Breath Or Wheezing Amitriptyline HCl (Amitriptyline Hcl 50 Mg Tablet) 50 mg PO BEDTIME [facility] Last Admin: 03/28/24 20:23 Dose: 50 mg Documented By: BRADFORD Amlodipine Besylate (Amlodipine Besylate 10 Mg Tablet) 10 mg PO DAILY [facility]; Protocol Last Admin: 03/28/24 08:46 Dose: 10 mg Documented By: CLEMENT Azelastine HCl (Azelastine Hcl Nasal 137 Mcg/[place] 30 Ml) 1 spray NOSTRIL-B BID [facility] Last Admin: 03/28/24 20:23 Dose: 1 spray Documented By: BRADFORD Calcium Carbonate (Calcium Carbonate 750 Mg Tab.Chew) 750 mg PO Q4H PRN PRN Reason: Heartburn Clonazepam (Clonazepam 0.5 Mg Tablet) 0.5 mg PO DAILY PRN PRN Reason: Anxiety Clonazepam (Clonazepam 1 Mg Tablet) 1 mg PO BEDTIME PRN PRN Reason: Anxiety Last Admin: 03/28/24 01:29 Dose: 1 mg Documented By: BRADFORD Famotidine (Famotidine 20 Mg Tablet) 40 mg PO BEDTIME [facility] Last Admin: 03/28/24 20:23 Dose: 40 mg Documented By: BRADFORD Fluticasone Propionate (Fluticasone Propionate 250 Mcg Blst.W.Dev) 1 puff INHALE RBID [facility] Last Admin: 03/29/24 07:26 Dose: 1 puff Documented By: MARCELA Fluvoxamine Maleate (Fluvoxamine Maleate 50 Mg Tablet) 100 mg PO BID [facility] Last Admin: 03/28/24 20:23 Dose: 100 mg Documented By: BRADFORD Gabapentin (Gabapentin 600 Mg Tablet) 600 mg PO TID [facility] Last Admin: 03/28/24 20:23 Dose: 600 mg Documented By: BRADFORD Gabapentin (Gabapentin 100 Mg Capsule) 100 mg PO TID [facility] Last Admin: 03/28/24 20:23 Dose: 100 mg Documented By: BRADFORD Hydromorphone HCl (Hydromorphone Hcl 0.5 Mg/0.5 Ml Syringe) 0.5 mg IVPUSH Q3H PRN; Protocol PRN Reason: Pain, Severe (Pain Scale 7-10) Last Admin: 03/28/24 14:07 Dose: 0.5 mg Documented By: CLEMENT Acetaminophen (Ofirmev) 1,000 mg in 100 mls @ 400 mls/hr IV Q6H [facility] Last Infusion: 03/29/24 02:10 Dose: Infused Documented By: BRADFORD Loratadine (Loratadine 10 Mg Tablet) 10 mg PO DAILY [facility] Last Admin: 03/28/24 08:46 Dose: 10 mg Documented By: CLEMENT Magnesium Hydroxide (Milk Of Magnesia 30 Ml Oral.Susp) 30 ml PO DAILY PRN PRN Reason: Constipation Last Admin: 03/28/24 22:56 Dose: 30 ml Documented By: BRADFORD Melatonin (Melatonin 3 Mg Tablet) 6 mg PO BEDTIME PRN PRN Reason: Insomnia Memantine (Memantine Hcl 10 Mg Tablet) 10 mg PO Q2D [facility] Montelukast Sodium (Montelukast Sodium 10 Mg Tablet) 10 mg PO BEDTIME [facility] Last Admin: 03/28/24 20:23 Dose: 10 mg Documented By: BRADFORD Ondansetron HCl (Ondansetron Hcl 4 Mg/2 Ml Vial) 4 mg IVPUSH QID PRN PRN Reason: Nausea Last Admin: 03/28/24 14:10 Dose: 4 mg Documented By: CLEMENT Oxycodone HCl (Oxycodone Hcl Immed Release 5 Mg Tablet) 10 mg PO Q6H PRN PRN Reason: Pain, Moderate(Pain Scale 4-6) Last Admin: 03/28/24 19:59 Dose: 10 mg Documented By: BRADFORD Sodium Chloride (0.9 % Sodium Chloride Flush 3 Ml Syringe) 3 ml IVFLUSH QSHIFT [facility] Last Admin: 03/28/24 19:53 Dose: 3 ml Documented By: WAGNERRISM Spironolactone (Spironolactone 25 Mg Tablet) 50 mg PO DAILY [facility]; Protocol Last Admin: 03/28/24 08:45 Dose: 50 mg Documented By: CLEMENT Tizanidine HCl (Tizanidine Hcl 4 Mg Tablet) 4 mg PO BID PRN PRN Reason: for muscle spasm <Trevor Benoit - Last Filed: 03/29/24 09:20> Labs CBC & Chem 7: 03/28/24 05:14 03/28/24 05:14 <Trevor Benoit - Last Filed: 03/29/24 09:20> Procedures Date of Service Date of Service: 03/29/24 <Trevor Benoit - Last Filed: 03/29/24 09:20> 03/29/24 <Nuria Hernandez PA-C - Last Filed: 03/29/24 09:26> 03/29/24 <Raymundo Walton MD - Last Filed: 03/29/24 10:55> Progress Note: A&P Assessment and plan (1) H/O pyloroplasty: Status: Acute <Trevor Benoit - Last Filed: 03/29/24 09:20> Assessment and Plan: VSS stable. H/H stable. White count remains elevated. She reports that her pain is better, but abdomen demonstrated diffuse pain to light palpation. Continue with current pain management. Some nausea reported preventing solids intake, continue attempting to advance diet to solids. Tolerating oral intake, d/c IVF. Remove dressings. <Trevor Benoit - Last Filed: 03/29/24 09:20> VSS stable. H/H stable. White count remains elevated. She reports that her pain is better, but abdomen demonstrated diffuse pain to light palpation. Continue with current pain management. Some nausea reported preventing solids intake, continue attempting to advance diet to solids. Tolerating oral intake, d/c IVF. Remove dressings. POD #2 s/p pyloroplasty. Patient reports improvement in abd pain this morning. Tolerating solid food brought from home. OOB and ambulating. VSS> Abd exam benign with appropriate post op tenderness, clean incision. Encouraged oral analgesics today. If comfortable on oral analgesics, stable for dc to home later today or tomorrow. Will add bowel regimen as passing flatus but no BM. <Nuria Hernandez PA-C - Last Filed: 03/29/24 09:26> Time Spent With Patient Time: Total time managing care of this patient today ____ minutes. <Trevor Benoit - Last Filed: 03/29/24 09:20> Quality Stroke Does the patient have a stroke diagnosis?: No <Trevor Benoit - Last Filed: 03/29/24 09:20> VTE Prior VTE?: No <Trevor Benoit - Last Filed: 03/29/24 09:20> VTE Risk Level:: Surgical - moderate <Trevor Cedillo Last Filed: 03/29/24 09:20> VTE Device Contraindication: N/A - Device Ordered <Trevor Benoit - Last Filed: 03/29/24 09:20> VTE Drug Contraindication: Treatment Not Indicated <Trevor Cedillo Last Filed: 03/29/24 09:20>
[2024-03-29 07:39] VITALS: BP 142/69; PULSE 77; RESP 16; TEMP 36.2; O2SAT 95
[2024-03-29] MEDS: 0.9 % Sodium Chloride Flush 3 ML SYRINGE IVFLUSH ×3 (08:26→19:52)
[2024-03-29] MEDS: fluvoxaMINE Maleate 50 MG TABLET 100 MG PO ×2 (08:29→19:51)
[2024-03-29] MEDS: amLODIPine Besylate 10 MG TABLET PO (08:29)
[2024-03-29] MEDS: Gabapentin 100 MG CAPSULE PO ×3 (08:29→19:52)
[2024-03-29] MEDS: Loratadine 10 MG TABLET PO (08:29)
[2024-03-29] MEDS: Gabapentin 600 MG TABLET PO ×3 (08:29→19:52)
[2024-03-29] MEDS: oxyCODONE HCl Immed Release 5 MG TABLET 10 MG PO ×3 (08:29→21:10)
[2024-03-29] MEDS: Spironolactone 25 MG TABLET 50 MG PO (08:29)
[2024-03-29] MEDS: Memantine HCl 10 MG TABLET PO (08:57)
[2024-03-29] MEDS: Milk of Magnesia 30 ML ORAL.SUSP PO (10:43)
[2024-03-29] MEDS: Docusate Sodium 100 MG CAPSULE PO ×2 (10:43→19:52)
[2024-03-29] MEDS: Ondansetron ODT 8 MG TAB.RAPDIS TRANSLINGU (10:44)
[2024-03-29] MEDS: polyethylene glycoL 3350 17 GM POWD.PACK PO (10:44)
--- NOTE | 2024-03-29 15:25 | MHC.CM.PN ---
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
[2024-03-29 15:29] VITALS: BP 137/77; PULSE 76; RESP 20; TEMP 36.3; O2SAT 94
[2024-03-29 18:54] VITALS: BP 133/72; PULSE 80; RESP 18; TEMP 36.1; O2SAT 96
[2024-03-29] MEDS: Amitriptyline HCl 50 MG TABLET PO (19:52)
[2024-03-29] MEDS: Famotidine 20 MG TABLET 40 MG PO (19:52)
[2024-03-29] MEDS: Montelukast Sodium 10 MG TABLET PO (19:52)
[2024-03-29] MEDS: HYDROmorphone HCl 0.5 MG/0.5 ML SYRINGE IVPUSH (20:07)
[2024-03-29 20:24] VITALS: PULSE 86; RESP 18; O2SAT 94
[2024-03-29] MEDS: Acetaminophen 325 MG TABLET 975 MG PO (21:09)
[2024-03-30] VITALS (7 sets, daily range): BP systolic 135–157; BP diastolic 70–79; PULSE 77–92; RESP 15–20; TEMP 36–36.6; O2SAT 93–96
[2024-03-30 06:28] LABS: MANUAL DIFF FLAG NO
[2024-03-30 06:35] LABS: Basophils Absolute Auto 0.1 X10*3/uL (0.0-0.2); Basophils Percent Auto 0.8 % (0-2); Eosinophils Absolute Auto 0.2 X10*3/uL (0.0-0.4); Eosinophils Percent Auto 1.3 % (0-4); Hematocrit 42.4 % (37.0-47.0); Hemoglobin 14.5 g/dl (12.0-16.0); Imm Gran Abs Auto 0.08 X10*3/uL (0.00-0.03); Imm Gran Pct Auto 0.7 % (0.0-0.4); Lymphocytes Percent Auto 41.1 % (20-40); Mean Corpuscular HGB Conc 34.2 g/dl (31.0-35.0); Mean Corpuscular Hemoglobin 31.1 pg (27.0-33.0); Mean Platelet Volume 8.7 fL (9.4-12.3); Monocytes Absolute Auto 1.2 X10*3/uL (0.1-1.2); Monocytes Percent Auto 9.9 % (2-11); Neutrophils Absolute Auto 5.6 x10*3/uL (2.0-8.3); Neutrophils Percent Auto 46.2 % (45-73); Platelet Count 398 X10*3/uL (160-400); Red Blood Count 4.66 X10*6/uL (4.20-5.50); Red Cell Distribution Width 14.1 % (11.0-16.0); White Blood Count 12.1 X10*3/uL (4.8-10.8)
[2024-03-30] MEDS: Fluticasone Propionate 250 MCG BLST.W.DEV 1 PUFF INHALE ×2 (07:56→19:49)
[2024-03-30] MEDS: Milk of Magnesia 30 ML ORAL.SUSP PO (08:16)
[2024-03-30] MEDS: fluvoxaMINE Maleate 50 MG TABLET 100 MG PO ×2 (08:16→20:22)
[2024-03-30] MEDS: Azelastine HCl Nasal 137 MCG/Spray 30 ML 1 SPRAY NOSTRIL-B (08:16)
[2024-03-30] MEDS: Ondansetron ODT 8 MG TAB.RAPDIS TRANSLINGU ×2 (08:16→18:03)
[2024-03-30] MEDS: amLODIPine Besylate 10 MG TABLET PO (08:16)
[2024-03-30] MEDS: polyethylene glycoL 3350 17 GM POWD.PACK PO (08:16)
[2024-03-30] MEDS: Gabapentin 100 MG CAPSULE PO ×3 (08:16→20:23)
[2024-03-30] MEDS: Gabapentin 600 MG TABLET PO ×3 (08:18→20:23)
[2024-03-30] MEDS: Docusate Sodium 100 MG CAPSULE PO ×2 (08:18→20:23)
[2024-03-30] MEDS: Loratadine 10 MG TABLET PO (08:18)
[2024-03-30] MEDS: HYDROmorphone HCl 0.5 MG/0.5 ML SYRINGE IVPUSH ×2 (08:18→12:34)
[2024-03-30] MEDS: 0.9 % Sodium Chloride Flush 3 ML SYRINGE IVFLUSH ×3 (08:18→20:26)
[2024-03-30] MEDS: Spironolactone 25 MG TABLET 50 MG PO (08:19)
--- NOTE | 2024-03-30 14:43 | PM.PNGS ---
Subjective Subjective Date of Service: 03/30/24 Interval history: Uneventful evening. Patient is doing her incentive spirometry, ambulating. Incisional discomfort is under control. Physical Exam Vital Signs: Vital Signs: Last Vital Signs Temp 97.3 F 03/30/24 08:00 Pulse 78 03/30/24 08:00 Resp 20 03/30/24 08:00 BP 157/77 H 03/30/24 08:16 Pulse Ox 95 03/30/24 08:00 O2 Del Method Room Air 03/30/24 08:00 O2 Flow Rate 2 03/27/24 15:43 BMI result Body Mass Index 30.1 GI: Other: Abdomen is soft. Wound clean dry and intact healing uneventfully Objective Data Active Medications Acetaminophen (Acetaminophen 325 Mg Tablet) 975 mg PO Q6H PRN PRN Reason: Pain, Mild (Pain Scale 1-3) Last Admin: 03/29/24 21:09 Dose: 975 mg Documented By: DEMETRIUS Albuterol Sulfate (Albuterol Sulfate (0.083%) 2.5 Mg/3 Ml Vial.Neb) 2.5 mg INHALE DAILY PRN PRN Reason: Shortness Of Breath Or Wheezing Amitriptyline HCl (Amitriptyline Hcl 50 Mg Tablet) 50 mg PO BEDTIME [facility] Last Admin: 03/29/24 19:52 Dose: 50 mg Documented By: JEFFREY Amlodipine Besylate (Amlodipine Besylate 10 Mg Tablet) 10 mg PO DAILY [facility]; Protocol Last Admin: 03/30/24 08:16 Dose: 10 mg Documented By: NANCIE Azelastine HCl (Azelastine Hcl Nasal 137 Mcg/[place] 30 Ml) 1 spray NOSTRIL-B BID [facility] Last Admin: 03/30/24 08:16 Dose: 1 spray Documented By: NANCIE Calcium Carbonate (Calcium Carbonate 750 Mg Tab.Chew) 750 mg PO Q4H PRN PRN Reason: Heartburn Clonazepam (Clonazepam 0.5 Mg Tablet) 0.5 mg PO DAILY PRN PRN Reason: Anxiety Clonazepam (Clonazepam 1 Mg Tablet) 1 mg PO BEDTIME PRN PRN Reason: Anxiety Last Admin: 03/28/24 01:29 Dose: 1 mg Documented By: WAGNERRISEugenio Docusate Sodium (Docusate Sodium 100 Mg Capsule) 100 mg PO BID [facility] Last Admin: 03/30/24 08:18 Dose: 100 mg Documented By: NANCIE Famotidine (Famotidine 20 Mg Tablet) 40 mg PO BEDTIME [facility] Last Admin: 03/29/24 19:52 Dose: 40 mg Documented By: JEFFREY Fluticasone Propionate (Fluticasone Propionate 250 Mcg Blst.W.Dev) 1 puff INHALE RBID [facility] Last Admin: 03/30/24 07:56 Dose: 1 puff Documented By: KIMBERLY Fluvoxamine Maleate (Fluvoxamine Maleate 50 Mg Tablet) 100 mg PO BID [facility] Last Admin: 03/30/24 08:16 Dose: 100 mg Documented By: NANCIE Gabapentin (Gabapentin 600 Mg Tablet) 600 mg PO TID [facility] Last Admin: 03/30/24 14:02 Dose: 600 mg Documented By: NANCIE Gabapentin (Gabapentin 100 Mg Capsule) 100 mg PO TID [facility] Last Admin: 03/30/24 14:02 Dose: 100 mg Documented By: NANCIE Hydromorphone HCl (Hydromorphone Hcl 0.5 Mg/0.5 Ml Syringe) 0.5 mg IVPUSH Q3H PRN; Protocol PRN Reason: Pain, Severe (Pain Scale 7-10) Last Admin: 03/30/24 12:34 Dose: 0.5 mg Documented By: NANCIE Loratadine (Loratadine 10 Mg Tablet) 10 mg PO DAILY [facility] Last Admin: 03/30/24 08:18 Dose: 10 mg Documented By: NANCIE Magnesium Hydroxide (Milk Of Magnesia 30 Ml Oral.Susp) 30 ml PO DAILY [facility] Last Admin: 03/30/24 08:16 Dose: 30 ml Documented By: NANCIE Melatonin (Melatonin 3 Mg Tablet) 6 mg PO BEDTIME PRN PRN Reason: Insomnia Memantine (Memantine Hcl 10 Mg Tablet) 10 mg PO Q2D [facility] Last Admin: 03/29/24 08:57 Dose: 10 mg Documented By: ROSIE Montelukast Sodium (Montelukast Sodium 10 Mg Tablet) 10 mg PO BEDTIME [facility] Last Admin: 03/29/24 19:52 Dose: 10 mg Documented By: JEFFREY Ondansetron HCl (Ondansetron Odt 8 Mg Tab.Rapdis) 8 mg TRANSLINGU Q8H PRN PRN Reason: Nausea and Vomiting Last Admin: 03/30/24 08:16 Dose: 8 mg Documented By: NANCIE Oxycodone HCl (Oxycodone Hcl Immed Release 5 Mg Tablet) 10 mg PO Q6H PRN PRN Reason: Pain, Moderate(Pain Scale 4-6) Last Admin: 03/29/24 21:10 Dose: 10 mg Documented By: DEMETRIUS Polyethylene Glycol (Polyethylene Glycol 3350 17 Gm Powd.Pack) 17 gm PO DAILY [facility] Last Admin: 03/30/24 08:16 Dose: 17 gm Documented By: NANCIE Sodium Chloride (0.9 % Sodium Chloride Flush 3 Ml Syringe) [facility] Last Admin: 03/30/24 08:18 Dose: 3 ml Documented By: NANCIE Spironolactone (Spironolactone 25 Mg Tablet) 50 mg PO DAILY [facility]; Protocol Last Admin: 03/30/24 08:19 Dose: 50 mg Documented By: NANCIE Tizanidine HCl (Tizanidine Hcl 4 Mg Tablet) 4 mg PO BID PRN PRN Reason: for muscle spasm Labs 03/30/24 05:57 03/28/24 05:14 Labs: Laboratory Results - last 24 hr 03/30/24 05:57 MCV 91.0 MCH 31.1 MCHC 34.2 RDW 14.1 Plt Count 398 MPV 8.7 L Immature Gran % (Auto) 0.7 H Neut % (Auto) 46.2 Lymph % (Auto) 41.1 H Sully % (Auto) 9.9 Eos % (Auto) 1.3 Baso % (Auto) 0.8 Lymph # (Auto) 5.0 H Sully # (Auto) 1.2 Eos # (Auto) 0.2 Baso # (Auto) 0.1 Abs Immat Gran (auto) 0.08 H Absolute Neuts (auto) 5.6 Absolute Nucleated RBC 0.000 Nucleated RBC % (auto) 0.0 Procedures Date of Service Date of Service: 03/30/24 Progress Note: A&P Assessment and plan (1) H/O pyloroplasty: Status: Acute (2) Postop check: Status: Acute Plan Encourage current plan of out of bed, incentive spirometry, ice pack to incision, p.o. as tolerated Time Spent With Patient Time: Total time managing care of this patient today ____ minutes. Quality Stroke Does the patient have a stroke diagnosis?: No VTE Prior VTE?: No VTE Risk Level:: Surgical - moderate VTE Device Contraindication: N/A - Device Ordered VTE Drug Contraindication: Treatment Not Indicated
[2024-03-30] MEDS: Montelukast Sodium 10 MG TABLET PO (20:22)
[2024-03-30] MEDS: Famotidine 20 MG TABLET 40 MG PO (20:23)
[2024-03-30] MEDS: oxyCODONE HCl Immed Release 5 MG TABLET 10 MG PO (20:23)
[2024-03-30] MEDS: Amitriptyline HCl 50 MG TABLET PO (20:26)
[2024-03-30] MEDS: Acetaminophen 325 MG TABLET 975 MG PO (22:00)
[2024-03-31 02:55] VITALS: BP 141/77; PULSE 77; RESP 14; TEMP 37.1; O2SAT 93
[2024-03-31 07:38] VITALS: BP 125/75; PULSE 79; RESP 16; TEMP 36.3; O2SAT 95
[2024-03-31] MEDS: Fluticasone Propionate 250 MCG BLST.W.DEV 1 PUFF INHALE (07:56)
[2024-03-31 07:58] VITALS: PULSE 79; RESP 16; O2SAT 95
[2024-03-31] MEDS: Milk of Magnesia 30 ML ORAL.SUSP PO (08:15)
[2024-03-31] MEDS: Ondansetron ODT 8 MG TAB.RAPDIS TRANSLINGU (08:15)
[2024-03-31] MEDS: Gabapentin 600 MG TABLET PO ×2 (08:16→14:01)
[2024-03-31] MEDS: Docusate Sodium 100 MG CAPSULE PO (08:16)
[2024-03-31] MEDS: amLODIPine Besylate 10 MG TABLET PO (08:16)
[2024-03-31] MEDS: Azelastine HCl Nasal 137 MCG/Spray 30 ML 1 SPRAY NOSTRIL-B (08:16)
[2024-03-31] MEDS: polyethylene glycoL 3350 17 GM POWD.PACK PO (08:16)
[2024-03-31] MEDS: Spironolactone 25 MG TABLET 50 MG PO (08:16)
[2024-03-31] MEDS: Gabapentin 100 MG CAPSULE PO ×2 (08:16→14:01)
[2024-03-31] MEDS: 0.9 % Sodium Chloride Flush 3 ML SYRINGE IVFLUSH ×2 (08:16→14:02)
[2024-03-31] MEDS: Loratadine 10 MG TABLET PO (08:16)
[2024-03-31] MEDS: fluvoxaMINE Maleate 50 MG TABLET 100 MG PO (08:16)
[2024-03-31] MEDS: Memantine HCl 10 MG TABLET PO (08:22)
--- NOTE | 2024-03-31 14:15 | PM.PNGS ---
Subjective Subjective Date of Service: 03/31/24 Interval history: Patient was doing quite well. Tolerating diet. Passing some flatus and stool. Ambulating with minimal assistance. Incisional pain improving Physical Exam Vital Signs: Vital Signs: Last Vital Signs Temp 97.3 F 03/31/24 07:38 Pulse 79 03/31/24 07:58 Resp 16 03/31/24 07:58 BP 125/75 03/31/24 07:38 Pulse Ox 95 03/31/24 07:38 O2 Del Method Room Air 03/31/24 07:38 O2 Flow Rate 2 03/27/24 15:43 BMI result Body Mass Index 30.1 GI: Other: Abdomen mildly corpulent, soft, incision clean dry and intact Objective Data Active Medications Acetaminophen (Acetaminophen 325 Mg Tablet) 975 mg PO Q6H PRN PRN Reason: Pain, Mild (Pain Scale 1-3) Last Admin: 03/30/24 22:00 Dose: 975 mg Documented By: JEFFREY Albuterol Sulfate (Albuterol Sulfate (0.083%) 2.5 Mg/3 Ml Vial.Neb) 2.5 mg INHALE DAILY PRN PRN Reason: Shortness Of Breath Or Wheezing Amitriptyline HCl (Amitriptyline Hcl 50 Mg Tablet) 50 mg PO BEDTIME [facility] Last Admin: 03/30/24 20:26 Dose: 50 mg Documented By: JEFFREY Amlodipine Besylate (Amlodipine Besylate 10 Mg Tablet) 10 mg PO DAILY [facility]; Protocol Last Admin: 03/31/24 08:16 Dose: 10 mg Documented By: NANCIE Azelastine HCl (Azelastine Hcl Nasal 137 Mcg/[place] 30 Ml) 1 spray NOSTRIL-B BID [facility] Last Admin: 03/31/24 08:16 Dose: 1 spray Documented By: NANCIE Calcium Carbonate (Calcium Carbonate 750 Mg Tab.Chew) 750 mg PO Q4H PRN PRN Reason: Heartburn Clonazepam (Clonazepam 0.5 Mg Tablet) 0.5 mg PO DAILY PRN PRN Reason: Anxiety Clonazepam (Clonazepam 1 Mg Tablet) 1 mg PO BEDTIME PRN PRN Reason: Anxiety Last Admin: 03/28/24 01:29 Dose: 1 mg Documented By: WAGNERRISEugenio Docusate Sodium (Docusate Sodium 100 Mg Capsule) 100 mg PO BID [facility] Last Admin: 03/31/24 08:16 Dose: 100 mg Documented By: NANCIE Famotidine (Famotidine 20 Mg Tablet) 40 mg PO BEDTIME [facility] Last Admin: 03/30/24 20:23 Dose: 40 mg Documented By: JEFFREY Fluticasone Propionate (Fluticasone Propionate 250 Mcg Blst.W.Dev) 1 puff INHALE RBID [facility] Last Admin: 03/31/24 07:56 Dose: 1 puff Documented By: KIMBERLY Fluvoxamine Maleate (Fluvoxamine Maleate 50 Mg Tablet) 100 mg PO BID [facility] Last Admin: 03/31/24 08:16 Dose: 100 mg Documented By: NANCIE Gabapentin (Gabapentin 600 Mg Tablet) 600 mg PO TID [facility] Last Admin: 03/31/24 14:01 Dose: 600 mg Documented By: NANCIE Gabapentin (Gabapentin 100 Mg Capsule) 100 mg PO TID [facility] Last Admin: 03/31/24 14:01 Dose: 100 mg Documented By: NANCIE Hydromorphone HCl (Hydromorphone Hcl 0.5 Mg/0.5 Ml Syringe) 0.5 mg IVPUSH Q3H PRN; Protocol PRN Reason: Pain, Severe (Pain Scale 7-10) Last Admin: 03/30/24 12:34 Dose: 0.5 mg Documented By: NANCIE Loratadine (Loratadine 10 Mg Tablet) 10 mg PO DAILY [facility] Last Admin: 03/31/24 08:16 Dose: 10 mg Documented By: NANCIE Magnesium Hydroxide (Milk Of Magnesia 30 Ml Oral.Susp) 30 ml PO DAILY [facility] Last Admin: 03/31/24 08:15 Dose: 30 ml Documented By: NANCIE Melatonin (Melatonin 3 Mg Tablet) 6 mg PO BEDTIME PRN PRN Reason: Insomnia Memantine (Memantine Hcl 10 Mg Tablet) 10 mg PO Q2D [facility] Last Admin: 03/31/24 08:22 Dose: 10 mg Documented By: NANCIE Montelukast Sodium (Montelukast Sodium 10 Mg Tablet) 10 mg PO BEDTIME [facility] Last Admin: 03/30/24 20:22 Dose: 10 mg Documented By: JEFFREY Ondansetron HCl (Ondansetron Odt 8 Mg Tab.Rapdis) 8 mg TRANSLINGU Q8H PRN PRN Reason: Nausea and Vomiting Last Admin: 03/31/24 08:15 Dose: 8 mg Documented By: NANCIE Oxycodone HCl (Oxycodone Hcl Immed Release 5 Mg Tablet) 10 mg PO Q6H PRN PRN Reason: Pain, Moderate(Pain Scale 4-6) Last Admin: 03/30/24 20:23 Dose: 10 mg Documented By: CASTILEugenio Polyethylene Glycol (Polyethylene Glycol 3350 17 Gm Powd.Pack) 17 gm PO DAILY [facility] Last Admin: 03/31/24 08:16 Dose: 17 gm Documented By: NANCIE Sodium Chloride (0.9 % Sodium Chloride Flush 3 Ml Syringe) 3 ml IVFLUSH QSHIFT [facility] Last Admin: 03/31/24 14:02 Dose: 3 ml Documented By: NANCIE Spironolactone (Spironolactone 25 Mg Tablet) 50 mg PO DAILY [facility]; Protocol Last Admin: 03/31/24 08:16 Dose: 50 mg Documented By: NANCIE Tizanidine HCl (Tizanidine Hcl 4 Mg Tablet) 4 mg PO BID PRN PRN Reason: for muscle spasm Labs 03/30/24 05:57 03/28/24 05:14 Procedures Date of Service Date of Service: 03/31/24 Progress Note: A&P Assessment and plan (1) Postop check: Status: Acute Plan Patient would like to wait until tomorrow for discharge. Continue current plan. Time Spent With Patient Time: Total time managing care of this patient today ____ minutes. Quality Stroke Does the patient have a stroke diagnosis?: No VTE Prior VTE?: No VTE Risk Level:: Surgical - moderate VTE Device Contraindication: N/A - Device Ordered VTE Drug Contraindication: Treatment Not Indicated
[2024-03-31 15:26] VITALS: BP 120/68; PULSE 88; RESP 16; TEMP 36.4; O2SAT 98
--- NOTE | 2024-03-31 16:35 | P.DS_ITS ---
DS: Providers Provider Date of Service: 03/31/24 Date of admission: 03/27/24 11:48 Date of discharge: 03/31/24 Primary care physician: BACILIO Lackey- Consults: 03/27/24 16:15 Consult to Hospitalist Routine Comment: Consulting Provider: Hospitalist Reason For Exam: gastroparesis medical management DS: Diagnosis Discharge Diagnosis (1) Postop check: Status: Acute DS: Summary Hospital Course Hospital Course: HPI AT ADMISSION: 58-year-old female patient presenting with persistent nausea and vomiting and after extensive workup found to have gastroparesis with delayed gastric emptying. Patient presents now for pyloroplasty. HOSPITAL COURSE: On 03/27/24, pyloroplasty was performed by Dr. Walton without complication. The patient tolerated the procedure well and was admitted to the medical/surgical floor for observation post operatively. She had an uncomplicated recovery course. Hospitalist service was consulted for management of her medical comorbidities. On POD #1, she was doing fairly well post operatively. Her pickering was removed. She was advanced from clear liquids to solids. Her activity was increased. She remained inpatient for 4 days post ope ratively for pain control. On the day of discharge, she was tolerating a solid diet without any nausea or vomiting. Her pain was controlled on PO analgesics, she was passing flatus and moving her bowels. Her abdomen was benign with clean incision and appropriate post op tenderness. She felt ready for discharge. She was discharged to home on 03/31/24 in stable condition. She is to follow up in the office in 1 week. Status at Discharge Functional status at discharge: independent ambulation Overall status at discharge: patient is progressing back to baseline Time Attestation Discharge Coordination Time (in mins): 35 Quality: Safe Use of Opioids Does Pt have an Active Cancer Diagnosis on the Problem List?: No Quality: Stroke Does the patient have a stroke diagnosis?: No Physical Exam Vital Signs: Vital Signs: Last Vital Signs Temp 97.6 F 03/31/24 15:26 Pulse 88 03/31/24 15:26 Resp 16 03/31/24 15:26 BP 120/68 03/31/24 15:26 Pulse Ox 98 03/31/24 15:26 O2 Del Method Room Air 03/31/24 15:26 O2 Flow Rate 2 07/24/24 15:43 BMI result Body Mass Index 30.1 Const: General: comfortable, no acute distress and alert Orientation/consciousness: patient oriented x3 Resp: Effort & Inspection: normal respiratory effort GI: Inspection: No distended and Yes incision (clean) Palpation (GI): Soft to palpation and no guarding Neuro: General: patient oriented x3 Discharge Plan Discharge Anticipated Discharge Date/Time: 03/31/24 15:54 Patient Disposition: Home, Self-Care Discharge Diagnosis: gastroparesis Referrals: Raymundo Mcdonald FNP- [Primary Care Provider] - 1 Week Raymundo Walton MD [Physician] - 1 Week Discharge Medications: New hydrocodone-acetaminophen 5-325 mg tablet 1 tab PO Q4-6H PRN (Reason: pain) Qty: 30 0RF Rx Instructions: Partial Fill upon patient request. Continued cholecalciferol (vitamin D3) 25 mcg (1,000 unit) tablet 25 mcg PO DAILY Qty: 90 3RF loratadine 10 mg tablet 10 mg PO DAILY Qty: 90 3RF omega-3 acid ethyl esters 1 gram capsule 1 cap PO BID 90 Days Qty: 180 1RF amitriptyline 25 mg tablet 50 mg PO BEDTIME 30 Days Qty: 60 3RF Qvar RediHaler 80 mcg/actuation HFA aerosol breath activated 1 inh inhalation BID 30 Days Qty: 10.6 11RF azelastine 137 mcg (0.1 %) aerosol,spray 1 spray intranasal BID Qty: 30 11RF famotidine [Pepcid] 40 mg tablet 40 mg PO BEDTIME Qty: 90 1RF montelukast 10 mg tablet 10 mg PO BEDTIME Qty: 90 3RF diclofenac sodium 50 mg tablet,delayed release (DR/EC) 50 mg PO BID PRN (Reason: for pain) Qty: 60 1RF Rx Instructions: not to take concurrently with motrin, naproxen, or meloxicam hydrocortisone 2.5 % cream with perineal applicator 1 ea LA Q8-12H Qty: 30 0RF potassium chloride 10 mEq capsule, extended release 40 meq PO BID Qty: 180 1RF pravastatin 10 mg tablet 10 mg PO BEDTIME Qty: 90 0RF spironolactone 25 mg tablet 50 mg PO DAILY Qty: 180 1RF tizanidine 4 mg tablet 4 mg PO BID PRN (Reason: for muscle spasm) 28 Days Qty: 56 0RF multivitamin with folic acid [Daily-Laxmi (with folic acid)] 400 mcg tablet 1 tab PO DAILY Qty: 100 1RF tramadol 50 mg tablet 50 mg PO DAILY PRN (Reason: pain) Qty: 30 0RF amlodipine 10 mg tablet 10 mg PO DAILY Qty: 90 1RF diclofenac sodium 1 % gel 2 g topical BID PRN (Reason: for pain) Qty: 100 4RF sennosides [Senna Laxative] 8.6 mg tablet 17.2 mg PO BEDTIME hydrocortisone acetate [Anusol-HC] 25 mg suppository 25 mg LA BID PRN (Reason: Hemorrhoids) polyethylene glycol 3350 [Gavilax] 17 gram/dose powder 17 g PO DAILY PRN (Reason: Constipation) Emgality Pen 120 mg/mL pen injector 120 mg subcut Q30D rizatriptan 10 mg tablet 10 mg PO DAILY PRN (Reason: migraine) ondansetron 8 mg tablet,disintegrating 8 mg PO Q8H PRN (Reason: nausea/vomiting) Evenity 210mg/2.34mL ( 105mg/1.17mLx2) syringe 210 mg subcut Q28D Rx Instructions: Takes on a Monday when due. memantine 10 mg tablet 10 mg PO Q OTHER DAY gabapentin 600 mg tablet 600 mg PO TID clonazepam 0.5 mg tablet 0.5 mg PO DAILY PRN (Reason: Anxiety) gabapentin 100 mg capsule 100 mg PO TID fluvoxamine 100 mg tablet 100 mg PO BID clonazepam 1 mg tablet 1 mg PO BEDTIME PRN (Reason: Anxiety) albuterol sulfate 2.5 mg /3 mL (0.083 %) solution for nebulization 2.5 mg inhalation DAILY PRN (Reason: Shortness Of Breath Or Wheezing) omeprazole 40 mg capsule,delayed release(DR/EC) 40 mg PO DAILY Qty: 90 3RF Discharge Orders: Discharge Order (Routine); Ordered 03/31/24 Ordered By: Dario Zepeda Diet: Advance to usual diet Activity on Discharge: No heavy lifting Stand Alone Forms: Patient Portal Discharge page Print Language: Armenian Activity Restrictions/Additional Instructions: Ice to wound 20 minutes several times today and tomorrow. May shower. Leave Steri-Strips intact. No strenuous activities Care Plan Goals: convalesce Health Concerns: none Plan of Treatment: return to baseline Assessment: stable Discharge Date/Time: 03/31/24 18:11
== END 2024-03-31 18:11 | disposition home or self-care (01) | DRG 222 ==
LOC: HO.SSSA 11:49 → HO.S3 15:35
PROVIDERS: Nurse Practitioner; Admitting Provider Surgery; PCP Nurse Practitioner Family; Visit Provider Surgery
PROC: 0DU707Z Supplement Stomach, Pylorus with Autologous Tissue Substitute, Open Approach (ICD-10-PCS; CPT 49000; principal; 2024-03-27 13:00)
DX: K31.84 Gastroparesis (principal); F17.210 Nicotine dependence, cigarettes, uncomplicated; J45.909 Unspecified asthma, uncomplicated; K21.9 Gastro-esophageal reflux disease without esophagitis; G89.18 Other acute postprocedural pain; Z71.6 Tobacco abuse counseling; Z85.850 Personal history of malignant neoplasm of thyroid; Z79.620 Long term (current) use of immunosuppressive biologic; Z79.899 Other long term (current) drug therapy
CPT/HCPCS: 36415; 80048; 85025; 85027; 86850; 86900; 86901; 93005; 94640; C9145; J0131; J0665; J1100; J1170; J1596; J2250; J2405; J2704; J2795; J3010

== ENCOUNTER → 2024-03-27 11:48 | Outpatient (BNV) | payer OTHER, SELFPAY | PROVIDERS: Admitting Provider Surgery; PCP Nurse Practitioner Family; Visit Provider Surgery | DX: K31.84 Gastroparesis (principal) | CPT/HCPCS: 43800; 99024 ==

== ENCOUNTER → 2024-03-27 11:48 | Outpatient (BNV) | payer OTHER, SELFPAY | PROVIDERS: Admitting Provider Surgery; PCP Nurse Practitioner Family; Visit Provider Physician Assistant | DX: K31.84 Gastroparesis (principal) | CPT/HCPCS: 99222 ==

== ENCOUNTER 2024-04-09 08:08 | Outpatient (AMB) | payer OTHER, SELFPAY ==
--- NOTE | 2024-04-09 08:17 | MHC.OFFVIS ---
Vital Signs 04/09/24 08:26 Weight 169 lb BP 137/74 Blood Pressure Location Rt brachial Position Sitting Pulse 99 Intake Visit Reasons: S/P Exploratory Laparotomy (Pyloroplasty) Intake Note: Patient here s/p pyloroplasty on 03-27-24. Reports steri strips still in place. Patient c/o: itch along steri strips. Denies oozing, redness, inflammation. Taking rx pain meds as needed. 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: No Accompanied by: Jared baker Allergies Sulfa (Sulfonamide Antibiotics) [SULFA (SULFONAMIDE ANTIBIOTICS)] Allergy (Intermediate, Verified 04/09/24 08:25) HIVES egg Allergy (Verified 04/09/24 08:25) Abdominal Pain strawberry Allergy (Verified 04/09/24 08:25) Abdominal Pain aspirin [ASPIRIN] Adverse Reaction (Intermediate, Verified 04/09/24 08:25) ABD PAIN morphine [MORPHINE] Adverse Reaction (Intermediate, Verified 04/09/24 08:25) Abdominal Pain almond Allergy (Severe, Uncoded 04/09/24 08:25) Stomack pain Lactose intollerance Allergy (Severe, Uncoded 04/09/24 08:25) Stomach pain, nausceau Medication List - Last Reconciled 04/09/24 by Raymundo Walton MD albuterol sulfate 2.5 mg inhalation DAILY PRN amitriptyline 50 mg (2 x 25 mg) PO BEDTIME 30 days amlodipine 10 mg PO DAILY azelastine 1 spray intranasal BID beclomethasone dipropionate 80 mcg/actuation (Qvar RediHaler) 1 inh inhalation BID 30 days cholecalciferol (vitamin D3) 25 mcg PO DAILY clonazepam 0.5 mg PO DAILY PRN clonazepam 1 mg PO BEDTIME PRN diclofenac sodium 50 mg PO BID PRN diclofenac sodium 1% 2 grams topical BID PRN NS famotidine (Pepcid) 40 mg PO BEDTIME fluvoxamine 100 mg PO BID gabapentin 600 mg PO TID gabapentin 100 mg PO TID galcanezumab-gnlm (Emgality Pen) 120 mg subcut Q30D hydrocodone-acetaminophen 5-325 mg 1 tab PO Q4-6H PRN hydrocortisone 2.5% 1 ea [place] Q8-12H hydrocortisone acetate (Anusol-HC) 25 mg [place] BID PRN loratadine 10 mg PO DAILY memantine 10 mg PO Q OTHER DAY montelukast 10 mg PO BEDTIME multivitamin with folic acid 400 mcg (Daily-Laxmi (with folic acid)) 1 tab PO DAILY omega-3 acid ethyl esters 1 cap PO BID 90 days omeprazole 40 mg PO DAILY ondansetron 8 mg PO Q8H PRN polyethylene glycol 3350 (Gavilax) 17 grams PO DAILY PRN potassium chloride ER 40 mEq (4 x 10 mEq) PO BID pravastatin 10 mg PO BEDTIME rizatriptan 10 mg PO DAILY PRN romosozumab-aqqg (Evenity) 210 mg subcut Q28D sennosides (Senna Laxative) 17.2 mg PO BEDTIME spironolactone 50 mg (2 x 25 mg) PO DAILY tizanidine 4 mg PO BID PRN 28 days tramadol 50 mg PO DAILY PRN HPI Comments Details: 58-year-old female patient returning 1 week following pyloroplasty for gastric outlet obstruction. She reports feeling well and denies nausea or vomiting. Her abdominal pain is improving as well. Denies any bleeding or discharge from the incision. REPLACED BY [facility] Medical History Numbness Wheezing Chronic radicular pain of lower back Foot pain, bilateral Joint pain in both hands Breast pain Hypokalemia Breast pain, right Allergies Migraines Renal calculi Bipolar disorder Chronic abdominal pain Osteoporosis Hyperparathyroidism Multinodular thyroid Depression Fibromyalgia Thrombocytosis Leukocytosis GERD (gastroesophageal reflux disease) Thyroid cancer PONV (postoperative nausea and vomiting) Elevated cholesterol Difficulty swallowing Vitamin D deficiency Anxiety Pulmonary nodule Asthma HTN (hypertension) Surgical History H/O pyloroplasty (03/27/24) History of excision of mass Hx of thyroidectomy H/O esophagogastroduodenoscopy H/O colonoscopy History of bilateral oophorectomy Hx of cholecystectomy S/P excision of lipoma History of total abdominal hysterectomy Hx of appendectomy Family History Father Diabetes mellitus Skin cancer Prostate cancer Mother HTN (hypertension) High cholesterol Mental health disorder Maternal Grandfather Myocardial infarction Maternal Grandmother No problems noted. Paternal Grandfather No problems noted. Paternal Grandmother Breast cancer Sister Mental health disorder Social History Household Members: None Housing: Apartment Are you a primary palliative care nurse practitioner to a significant other at home: No Do you presently have visiting nurse or other home services: No Alcohol intake: never Patient Tobacco Use Status: Current everyday Tobacco user Tobacco use type: Cigarette Cigarettes Per Day: 5 Years Smoked: 20 e-Cigarette/Vaping Use: Never Used Second Hand Smoke Exposure: No Advance Directives Date on File: 10/05/16 service: No Current occupational status: disabled Sexual orientation: Straight/Heterosexual Gender identity: Female Cognitive needs: No Hearing needs: No Vision needs: No Physical Exam Vital Signs: Last Vital Signs Pulse 99 04/09/24 08:26 BP 137/74 04/09/24 08:26 Resp Effort & Inspection: normal respiratory effort GI Other: Soft and nondistended. Upper midline incision is clean, dry, and intact. No hematoma or seroma. No hernia palpable. Extrem General: No edema Assessment & Plan Assessment & Plan (1) Gastroparesis: Code(s): K31.84 - Gastroparesis Category: Medical Plan Patient returns 1 week following pyloroplasty for gastroparesis. Her wounds are clean, dry, and intact. She seems improved following the surgery. I recommended return in 1 month for follow-up examination. She is welcome to call sooner for any new concerns. Coding Level of Care Code Global (03293) Diagnoses Gastroparesis K31.84
[2024-04-09 08:26] VITALS: BP 137/74; PULSE 99
== END 2024-04-09 08:32 | disposition home or self-care (01) ==
PROVIDERS: PCP Nurse Practitioner Family; Visit Provider Surgery
DX: K31.84 Gastroparesis (principal)
CPT/HCPCS: 99024

== ENCOUNTER → 2024-04-09 08:08 | Outpatient (BNVA) | payer OTHER, SELFPAY | PROVIDERS: PCP Nurse Practitioner Family; Visit Provider Surgery | DX: K31.84 Gastroparesis (principal) | CPT/HCPCS: 99212 ==

== ENCOUNTER 2024-04-30 12:55 | Outpatient (AMB) | payer OTHER, SELFPAY ==
--- NOTE | 2024-04-30 13:41 | AM.OFFVISNUR ---
Intake Visit Reasons: Evenity#3 Allergies Sulfa (Sulfonamide Antibiotics) [SULFA (SULFONAMIDE ANTIBIOTICS)] Allergy (Intermediate, Verified 04/09/24 08:25) HIVES egg Allergy (Verified 04/09/24 08:25) Abdominal Pain strawberry Allergy (Verified 04/09/24 08:25) Abdominal Pain aspirin [ASPIRIN] Adverse Reaction (Intermediate, Verified 04/09/24 08:25) ABD PAIN morphine [MORPHINE] Adverse Reaction (Intermediate, Verified 04/09/24 08:25) Abdominal Pain almond Allergy (Severe, Uncoded 04/09/24 08:25) Stomack pain Lactose intollerance Allergy (Severe, Uncoded 04/09/24 08:25) Stomach pain, nausceau Office Meds romosozumab-aqqg 210 mg/2.34 mL(105 mg/1.17 mL x2)subcutaneous syringe Performing Provider: Deuce Valdes MD Performing Location: [facility] Endocrinology Administered by: Debby Terrazas RN on 04/30/24 13:42 Dose Route Admin Location Dispensed Lot Number Expiration Date ND Time Stamp Assembler 210 mg subcut bilateral lower abdomen 2.34 mL [id number] 09/03/26 74925-271-29 AMGEN Comments: Visit interpreted by Satnam Xiao LMT. Consent form signed. Pt tolerated well. Pt denies any problems with previous injections. Assessment & Plan Assessment & Plan Orders: Orders AMB Romosozumab Injection Patient Supplied Today M81.0 - Age-related osteoporosis without current pathological fracture Medications: New romosozumab-aqqg 210 mg (2.34 mL) subcut ONCE 2.34 mL 0RF M81.0 - Age-related osteoporosis without current pathological fracture
== END 2024-04-30 13:04 | disposition home or self-care (01) ==
PROVIDERS: PCP Nurse Practitioner Family; Visit Provider Internal Medicine Endocrinology, Diabetes & Metabolism
DX: M81.0 Age-related osteoporosis without current pathological fracture (principal)

== ENCOUNTER 2024-04-30 12:55 | Outpatient (REF) | payer OTHER, SELFPAY ==
[2024-04-30 20:41] LABS: Anion Gap 17 (12-20); Blood Urea Nitrogen 16 mg/dL (9-16); Calcium 10.4 mg/dL (8.4-10.2); Carbon Dioxide 20 mmol/L (22-29); Chloride 104 mmol/L (96-108); Estimated Glomerular Filt Rate 53; Glucose Random 99 mg/dL (60-115); Potassium 4.4 mmol/L (3.3-5.1); Sodium 137 mmol/L (135-145)
== END 2024-04-30 12:56 | disposition home or self-care (01) ==
LOC: HO.LAB 12:55
PROVIDERS: Absent Provider Internal Medicine Hypertension Specialist; PCP Nurse Practitioner Family; Visit Provider Internal Medicine Endocrinology, Diabetes & Metabolism
DX: M81.0 Age-related osteoporosis without current pathological fracture (principal); E87.6 Hypokalemia
CPT/HCPCS: 36415; 80048; 96372; J3111

== ENCOUNTER 2024-05-08 16:53 | Outpatient (AMB) | payer OTHER, SELFPAY ==
--- NOTE | 2024-05-08 07:17 | MHC.PC.OV ---
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 Allergies Sulfa (Sulfonamide Antibiotics) [SULFA (SULFONAMIDE ANTIBIOTICS)] Allergy (Intermediate, Verified 04/09/24 08:25) HIVES egg Allergy (Verified 04/09/24 08:25) Abdominal Pain strawberry Allergy (Verified 04/09/24 08:25) Abdominal Pain aspirin [ASPIRIN] Adverse Reaction (Intermediate, Verified 04/09/24 08:25) ABD PAIN morphine [MORPHINE] Adverse Reaction (Intermediate, Verified 04/09/24 08:25) Abdominal Pain almond Allergy (Severe, Uncoded 04/09/24 08:25) Stomack pain Lactose intollerance Allergy (Severe, Uncoded 04/09/24 08:25) Stomach pain, nausceau Tobacco use date assessed: 09/21/23 Dental Screening Dental Screen Date: 09/21/23 HPI REAL ESTATE ASSISTANT hour eval - android HPI Details Pt's daughter is present to assist with translation. Pt underwent a pyloroplasty on 03/27. She reports that she has not been feeling well since the surgery. She reports being very restless at night. Pt reports waking up frequently to use the bathroom. Pt currently has 19 hours of REAL ESTATE ASSISTANT services per week. Pt is requesting more hours, especially at night, difficulty getting out of bed to go to the bathroom, tripping, pt requesting daughter spends more time at home with her mother (pt). Will write note for pt to receive more REAL ESTATE ASSISTANT hours. Denies fever, chills, and dizziness. [facility] Medical History Numbness Wheezing Chronic radicular pain of lower back Foot pain, bilateral Joint pain in both hands Breast pain Hypokalemia Breast pain, right Allergies Migraines Renal calculi Bipolar disorder Chronic abdominal pain Osteoporosis Hyperparathyroidism Multinodular thyroid Depression Fibromyalgia Thrombocytosis Leukocytosis GERD (gastroesophageal reflux disease) Thyroid cancer PONV (postoperative nausea and vomiting) Elevated cholesterol Difficulty swallowing Vitamin D deficiency Anxiety Pulmonary nodule Asthma HTN (hypertension) Surgical History (Updated 05/08/24 @ 08:13 by BACILIO James-) H/O pyloroplasty (03/27/24) History of excision of mass Hx of thyroidectomy H/O esophagogastroduodenoscopy H/O colonoscopy History of bilateral oophorectomy Hx of cholecystectomy S/P excision of lipoma History of total abdominal hysterectomy Hx of appendectomy Family History Father Diabetes mellitus Skin cancer Prostate cancer Mother HTN (hypertension) High cholesterol Mental health disorder Maternal Grandfather Myocardial infarction Maternal Grandmother No problems noted. Paternal Grandfather No problems noted. Paternal Grandmother Breast cancer Sister Mental health disorder Social History Household Members: None Housing: Apartment Are you a primary manager wound care to a significant other at home: No Do you presently have visiting nurse or other home services: No Alcohol intake: never Patient Tobacco Use Status: Current everyday Tobacco user Tobacco use type: Cigarette Cigarettes Per Day: 5 Years Smoked: 20 e-Cigarette/Vaping Use: Never Used Second Hand Smoke Exposure: No Advance Directives Date on File: 10/05/16 service: No Current occupational status: disabled Sexual orientation: Straight/Heterosexual Gender identity: Female Cognitive needs: No Hearing needs: No Vision needs: No Questionnaire Thrive Questionnaire Date Thrive assessed: 03/29/24 Review of Systems Const Reports as per HPI Physical exam (Primary Care) Tobacco/Smoking Status: Tobacco use Status Tobacco use date assessed 09/21/23 05/08/24 07:17 Patient Tobacco Use Status Current everyday Tobacco 05/08/24 07:17 Tobacco use type Cigarette 05/08/24 07:17 e-Cigarette/Vaping Use Never Used 05/08/24 07:17 Thrive Assessment: Date of Thrive Assessment Date Thrive assessed 03/29/24 05/08/24 07:17 Const General: cooperative Orientation/consciousness: patient oriented x3 Neuro General: patient oriented x3 Psych Appearance: grossly normal Mental Status: mental status grossly normal Speech and movement: Clear speech present Affect: normal affect Attitude: cooperative Thought process: Normal thought process present Thought content: Normal thought content present Insight: Good insight present (Psych) Judgement: Good judgement present (Psych) Telehealth Telehealth Telehealth Platform: [email or web address] Location of provider rendering services: practice address Location of patient: address on file Patient Identification confirmed using: Name, : Yes Telehealth method: video Patient verbally consented to treatment: Yes Patient verbally consented to billing insurance company: Yes Patient informed of any privacy concerns related to visit: Yes Minutes spent on Phone/Video with Pt.: 10 Assessment and Plan Assessment & Plan (1) Gait abnormality: Code(s): R26.9 - Unspecified abnormalities of gait and mobility (2) H/O pyloroplasty: Onset Date: 03/27/24 Comment: Raymundo Walton MD-surgeon Code(s): Z98.890 - Other specified postprocedural states (3) Nausea: Code(s): R11.0 - Nausea Plan The patient agreed to the use of a medical detailist for this encounter. Scribed for BACILIO Yuan-BC by Rocio Cassidy medical detailist, on 05/08/2024 at 07:15 EST. Coding Level of Care Code Tele Est Pt Level 3 (20576) Diagnoses Gait abnormality R26.9 H/O pyloroplasty Z98.890 Nausea R11.0
== END 2024-05-08 16:53 | disposition home or self-care (01) ==
LOC: HO.HMGC 16:53
PROVIDERS: PCP Nurse Practitioner Family; Visit Provider Nurse Practitioner Family
DX: R26.9 Unspecified abnormalities of gait and mobility (principal); Z98.890 Other specified postprocedural states; R11.0 Nausea
CPT/HCPCS: 99213

== ENCOUNTER → 2024-05-15 12:35 | Outpatient (BNVA) | payer OTHER, SELFPAY | PROVIDERS: PCP Nurse Practitioner Family; Visit Provider Surgery | DX: Z09 Encounter for follow-up examination after completed treatment for conditions other than malignant neoplasm (principal) | CPT/HCPCS: 99211 ==

== ENCOUNTER 2024-06-04 10:44 | Outpatient (AMB) | payer OTHER, SELFPAY ==
[2024-06-04 10:47] VITALS: BP 134/72; PULSE 96; O2SAT 97; BMI 29.9
--- NOTE | 2024-06-04 10:47 | A.OFFPC_ITS ---
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 Required: No Accompanied by: Self / Same As Patient Allergies Sulfa (Sulfonamide Antibiotics) [SULFA (SULFONAMIDE ANTIBIOTICS)] Allergy (Intermediate, Verified 06/04/24 10:47) HIVES egg Allergy (Verified 06/04/24 10:47) Abdominal Pain strawberry Allergy (Verified 06/04/24 10:47) Abdominal Pain aspirin [ASPIRIN] Adverse Reaction (Intermediate, Verified 06/04/24 10:47) ABD PAIN morphine [MORPHINE] Adverse Reaction (Intermediate, Verified 06/04/24 10:47) Abdominal Pain almond Allergy (Severe, Uncoded 04/09/24 08:25) Stomack pain Lactose intollerance Allergy (Severe, Uncoded 04/09/24 08:25) Stomach pain, nausceau Tobacco use date assessed: 09/21/23 Dental Screening Dental Screen Date: 09/21/23 HPI Physical exam HPI Details Pt is here for a PE. Will order labs. Colon screen is up to date. Mammo is up to date. Has a propeller tester. Pt follows up with rheumatology, endo, general surgery, nephrology, and neurology. Pt c/o lower back pain. She does report radicular symptoms down her lower extremities. Pt reports LE pain and weakness. Will order MRI. Denies any signs of cauda equina. Pt does have COPRA PROCESSOR services at home [facility] Medical History Numbness Wheezing Chronic radicular pain of lower back Foot pain, bilateral Joint pain in both hands Breast pain Hypokalemia Breast pain, right Allergies Migraines Renal calculi Bipolar disorder Chronic abdominal pain Osteoporosis Hyperparathyroidism Multinodular thyroid Depression Fibromyalgia Thrombocytosis Leukocytosis GERD (gastroesophageal reflux disease) Thyroid cancer PONV (postoperative nausea and vomiting) Elevated cholesterol Difficulty swallowing Vitamin D deficiency Anxiety Pulmonary nodule Asthma HTN (hypertension) Surgical History H/O pyloroplasty (07/24/24) History of excision of mass Hx of thyroidectomy H/O esophagogastroduodenoscopy H/O colonoscopy History of bilateral oophorectomy Hx of cholecystectomy S/P excision of lipoma History of total abdominal hysterectomy Hx of appendectomy Family History Father Diabetes mellitus Skin cancer Prostate cancer Mother HTN (hypertension) High cholesterol Mental health disorder Maternal Grandfather Myocardial infarction Maternal Grandmother No problems noted. Paternal Grandfather No problems noted. Paternal Grandmother Breast cancer Sister Mental health disorder Social History Household Members: None Housing: Apartment Are you a primary primary care provider to a significant other at home: No Do you presently have visiting nurse or other home services: No Alcohol intake: never Patient Tobacco Use Status: Current everyday Tobacco user Tobacco use type: Cigarette Cigarettes Per Day: 5 Years Smoked: 20 e-Cigarette/Vaping Use: Never Used Second Hand Smoke Exposure: No Advance Directives Date on File: 10/05/16 service: No Current occupational status: disabled Sexual orientation: Straight/Heterosexual Gender identity: Female Cognitive needs: No Hearing needs: No Vision needs: No Questionnaire PHQ-9 Over the last 2 weeks, how often have you been bothered by any of the following problems? 1. Little interest or pleasure in doing things: not at all 2. Feeling down, depressed, or hopeless: nearly every day 3. Trouble falling or staying asleep, or sleeping too much: nearly every day 4. Feeling tired or having little energy: nearly every day 5. Poor appetite or overeating: nearly every day 6. Feeling bad about yourself - or that you are a failure or have let yourself or your family down: more than half the days 7. Trouble concentrating on things, such as reading the newspaper or watching television: nearly every day 8. Moving or speaking so slowly that other people could have noticed. Or the opposite - being so fidgety or restless that you have been moving around a lot more than usual: nearly every day 9. Thoughts that you would be better off or of hurting yourself in some way: more than half the days Total score: 22 Depression Screening Interpretation: Positive (denies any SI or HI, will have our team contact pt) Depression Screening Follow-up: Existing condition Depression Screening Done: Yes 27650 - PHQ-9 Billing: Yes Source: Developed by Drs. Deuce Worthy, Susana Bray, Edin Patton and colleagues, with an educational jin from [employer]. Thrive Questionnaire Date Thrive assessed: 06/04/24 I am a: Patient What is your living situation today?: I have a steady place to live Within the past 12 months, did the food you bought not last and you didn't have the money to get more?: Never true Within the past 12 months, did you worry whether your food would run out before you got money to buy more?: Never true Do you have trouble paying for medicines?: No Do you have trouble getting transportation to medical appointments?: No Do you have trouble paying your heating and electricity bill?: No Do you have trouble taking care of your child, family member or friend?: Yes Do you have trouble with day-to-day activities such as bathing, preparing meals, shopping, managing finances, etc.?: Yes Are you interested in more education?: No Please select the resources that you would like help with: None Currently or been in a relationship where the following occur: I choose not to answer THRIVE Score: 0 AUDIT C Alcohol Use Questionnaire (AUDIT-C) 1. How often do you have a drink containing alcohol?: Never 3. How often do you have six or more drinks on one occasion?: Never Total Score: 0 Score Reviewed/Action Taken: Yes JACKY-7 AMB Questionnaire JACKY-7 Date JACKY - 7 assessed: 06/04/24 Feeling nervous, anxious, or on edge: 3 = Nearly every day Not being able to stop or control worryin = Nearly every day Worrying too much about different things: 3 = Nearly every day Trouble relaxin = Nearly every day Being so restless that it is hard to sit still: 3 = Nearly every day Becoming easily annoyed or irritable: 3 = Nearly every day Feeling afraid as if something awful might happen: 3 = Nearly every day Total JACKY-7 score (0-4 normal; 5-9 mild; 10-14 moderate; 15-21 severe): 21 Source: Developed by Luis Miguel Boyceet B.W. Asa, Edin Patton and colleagues, with an educational jin from [employer]. JACKY-7 Assessment Billing JACKY-7 Assessment Tool: JACKY-7 Assessment [id number] (denies any si or hi, will have our team contact pt) Review of Systems Const Denies chills and Denies fever(s) Eyes Denies blurry vision ENT Denies vertigo, Denies dizziness and Denies sore throat Card Denies chest pain at rest, Denies chest pain with activity, Denies diaphoresis, Denies dyspnea and Denies dyspnea on exertion Resp Denies cough, Denies dyspnea, Denies dyspnea on exertion and Denies wheezing GI Reports abdominal pain, Denies melena, Denies hematochezia, Denies constipation, Denies diarrhea and Denies loose stools Denies hematuria Musc Details: numbness and tingling down BLE Reports numbness and Reports tingling Skin/Breast Denies lesions Neuro Denies vertigo, Denies dizziness, Reports numbness and Reports tingling Psych Reports anxiety, Reports depression, Denies homicidal ideation, Denies suicidal ideation and Denies other (substance abuse) Aller/Immun Denies wheezing Physical exam (Primary Care) Vital Signs: Last Vital Signs Pulse 96 06/04/24 10:47 BP 134/72 06/04/24 10:47 Pulse Ox 97 06/04/24 10:47 BMI result Body Mass Index 29.9 Tobacco/Smoking Status: Tobacco use Status Tobacco use date assessed 09/21/23 06/04/24 10:48 Patient Tobacco Use Status Current everyday Tobacco 06/04/24 10:48 Tobacco use type Cigarette 06/04/24 10:48 e-Cigarette/Vaping Use Never Used 06/04/24 10:48 PHQ-9: PHQ-9 Score PHQ-9: Total score 22 06/04/24 10:49 Depression Screening Interpretation: Positive (denies any SI or HI, will have our team contact pt) Depression Screening Follow-up: Existing condition Thrive Assessment: Date of Thrive Assessment Date Thrive assessed 06/04/24 06/04/24 10:49 Currently or been in a relationship where the following occur: I choose not to answer Const General: cooperative Nutritional Appearance: well nourished Orientation/consciousness: patient oriented x3 HENMT Head: Yes normal to inspection, Yes normocephalic and Yes atraumatic Ears: TM's normal bilaterally Eyes General: appearance normal, both eyes and all related structures Alignment and Position: alignment normal and position normal Neck Neck: Yes normal visual inspection, Yes no lymphadenopathy and Yes supple Resp Effort & Inspection: normal respiratory effort Auscultation: clear to auscultation bilaterally Cardio Rate: regular rate Rhythm: regular rhythm Heart sounds: S1 normal heart sound present, S2 normal heart sound present and no murmurs GI Palpation (GI): Soft to palpation and nontender Auscultation: normal bowel sounds Back/Spine/Pelvis Other: unable to get into supine position for back exam (due to pain), tenderness with palpation of lower back Skin Rashes: no rashes Neuro General: patient oriented x3, moves all extremities, no focal motor deficits and deep tendon reflexes 2+ bilaterally Romberg Test: Negative Psych Appearance: grossly normal Mental Status: mental status grossly normal Speech and movement: Normal speech and movement present Affect: normal affect Attitude: cooperative Thought process: Normal thought process present Thought content: Normal thought content present Insight: Good insight present (Psych) Judgement: Good judgement present (Psych) Coding Level of Care Code Est Pt Prev Care 40-64y(71272) Diagnoses Encounter for routine adult physical exam with abnormal findings Z00.01 Chronic radicular pain of lower back M54.16; G89.29 Anxiety F41.9 Depression F32.9 Additional Codes JACKY-7 Assessment Billing - JACKY-7 Assessment Tool: JACKY-7 Assessment 62400 ([id number]) Assessment & Plan Assessment & Plan (1) Encounter for routine adult physical exam with abnormal findings: Code(s): Z00.01 - Encounter for general adult medical examination with abnormal findings Category: Medical Plan: Labs ordered (2) Chronic radicular pain of lower back: Code(s): M54.16 - Radiculopathy, lumbar region; G89.29 - Other chronic pain Category: Medical Plan: MRI ordered (3) Anxiety: Comment: serjio Code(s): F41.9 - Anxiety disorder, unspecified Category: Medical Plan: denies any si or hi, will have BH reach out to pt (4) Depression: Comment: serjio Code(s): F32.9 - Major depressive disorder, single episode, unspecified Category: Medical Plan: denies any si or hi, will have BH reach out to pt Plan The patient agreed to the use of a medical office representative for this encounter. Scribed for JAVY Yuan by Rocio Cassidy, medical office representative, on 06/04/2024 at 11:05 EST. Orders: Orders Comprehensive [place]. Panel Fast Today Z00.01 - Encounter for general adult medical examination with abnormal findings TSH reflex Free T4 Today Z00.01 - Encounter for general adult medical examination with abnormal findings UA CC w/rflx Micro + Cult Today Z00.01 - Encounter for general adult medical examination with abnormal findings Lipid Panel Today Z00.01 - Encounter for general adult medical examination with abnormal findings MR lumbar spine wo con Today G89.29 - Other chronic pain, M54.16 - Radiculopathy, lumbar region Complete Blood Count Auto Diff Today Z00.01 - Encounter for general adult medical examination with abnormal findings
== END 2024-06-04 11:42 | disposition home or self-care (01) ==
PROVIDERS: PCP Nurse Practitioner Family; Visit Provider Nurse Practitioner Family
DX: Z00.01 Encounter for general adult medical examination with abnormal findings (principal); M54.16 Radiculopathy, lumbar region; G89.29 Other chronic pain; F41.9 Anxiety disorder, unspecified; F32.9 Major depressive disorder, single episode, unspecified

== ENCOUNTER → 2024-06-04 10:44 | Outpatient (BNVA) | payer OTHER, SELFPAY | PROVIDERS: PCP Nurse Practitioner Family; Visit Provider Nurse Practitioner Family | DX: Z00.01 Encounter for general adult medical examination with abnormal findings (principal); F41.9 Anxiety disorder, unspecified; F32.9 Major depressive disorder, single episode, unspecified; M54.16 Radiculopathy, lumbar region; G89.29 Other chronic pain | CPT/HCPCS: 96127; 96372; 99396; J3111 ==

== ENCOUNTER 2024-06-04 12:19 | Outpatient (AMB) | payer OTHER, SELFPAY ==
--- NOTE | 2024-06-04 13:23 | AM.OFFVISNUR ---
Intake Visit Reasons: Evenity #4 Allergies Sulfa (Sulfonamide Antibiotics) [SULFA (SULFONAMIDE ANTIBIOTICS)] Allergy (Intermediate, Verified 06/04/24 10:47) HIVES egg Allergy (Verified 06/04/24 10:47) Abdominal Pain strawberry Allergy (Verified 06/04/24 10:47) Abdominal Pain aspirin [ASPIRIN] Adverse Reaction (Intermediate, Verified 06/04/24 10:47) ABD PAIN morphine [MORPHINE] Adverse Reaction (Intermediate, Verified 06/04/24 10:47) Abdominal Pain almond Allergy (Severe, Uncoded 04/09/24 08:25) Stomack pain Lactose intollerance Allergy (Severe, Uncoded 04/09/24 08:25) Stomach pain, nausceau Office Meds romosozumab-aqqg 210 mg/2.34 mL(105 mg/1.17 mL x2)subcutaneous syringe Performing Provider: Deuce Valdes MD Performing Location: [facility] [place] Endocrinology Administered by: Debby Terrazas RN on 06/04/24 12:32 Dose Route Admin Location Dispensed Lot Number Expiration Date NDC Meat [employer]er 210 mg subcut bilateral lower abdomen 2.34 mL [id number] 03/03/25 96888-854-32 AMGEN Comments: Visit interpreted by Rachel Montesinos LMMike. Pt's daughter accompanied by her today. Pt tolerated injection well. Consent form signed. Pt complaining increased spinal pain and bilateral hip pain. Per pt this started after her second injection and occurs midway through, about week 2 after her injection. Pt did alert her PCP who is ordering an MRI. Assessment & Plan Assessment & Plan Orders: Orders AMB Romosozumab Injection Patient Supplied Today M81.0 - Age-related osteoporosis without current pathological fracture Medications: New romosozumab-aqqg 210 mg (2.34 mL) subcut ONCE 2.34 mL 0RF M81.0 - Age-related osteoporosis without current pathological fracture
== END 2024-06-04 13:22 | disposition home or self-care (01) ==
PROVIDERS: PCP Nurse Practitioner Family
DX: M81.0 Age-related osteoporosis without current pathological fracture (principal)

== ENCOUNTER 2024-06-20 13:00 | Outpatient (REF) | payer OTHER, SELFPAY ==
[2024-06-20 14:12] LABS: Anion Gap 14 (12-20); Blood Urea Nitrogen 7 mg/dL (9-16); Calcium 10.3 mg/dL (8.4-10.2); Carbon Dioxide 24 mmol/L (22-29); Chloride 105 mmol/L (96-108); Estimated Glomerular Filt Rate > 60; Glucose Random 112 mg/dL (60-115); Sodium 138 mmol/L (135-145)
== END 2024-06-20 13:01 | disposition home or self-care (01) ==
LOC: HO.LAB 13:00
PROVIDERS: PCP Nurse Practitioner Family; Visit Provider Internal Medicine Hypertension Specialist
DX: E87.6 Hypokalemia (principal)
CPT/HCPCS: 36415; 80048

== ENCOUNTER 2024-06-24 09:39 | Outpatient (AMB) | payer OTHER, SELFPAY ==
[2024-06-24 09:39] VITALS: BP 120/72; PULSE 94; O2SAT 97; BMI 29.9
--- NOTE | 2024-06-24 09:39 | HO.NEPHOV_ITS ---
Vital Signs 06/24/24 09:39 Height 5 ft 3 in Weight 169 lb BMI 29.9 BP 120/72 Blood Pressure Location Rt brachial Position Sitting Pulse 94 Pulse Source Pulse Oximeter Pulse Oximetry (%) 97 Oxygen Delivery Method Room Air Intake Visit Reasons: Hypertension/ LVM Sustainable Design Consultant Required: Yes Sustainable Design Consultant Name: [id number] unique Accompanied by: Self / Same As Patient Allergies Sulfa (Sulfonamide Antibiotics) [SULFA (SULFONAMIDE ANTIBIOTICS)] Allergy (Intermediate, Verified 06/24/24 09:42) HIVES egg Allergy (Verified 06/24/24 09:42) Abdominal Pain strawberry Allergy (Verified 06/24/24 09:42) Abdominal Pain aspirin [ASPIRIN] Adverse Reaction (Intermediate, Verified 06/24/24 09:42) ABD PAIN morphine [MORPHINE] Adverse Reaction (Intermediate, Verified 06/24/24 09:42) Abdominal Pain almond Allergy (Severe, Uncoded 04/09/24 08:25) Stomack pain Lactose intollerance Allergy (Severe, Uncoded 04/09/24 08:25) Stomach pain, nausceau HPI Comments Details: 58-year-old female with an extensive medical history includes asthma, depression, bipolar disorder, hyperlipidemia, fibromyalgia, GERD, migraine, hyperthyroidism, thyroid cancer status post thyroidectomy, She has been referred for hypokalemia 2 years ago she had hypokalemia which was corrected. Recently she has had persistent hypokalemia. Potassium was in the low 2s. She was on chlorthalidone 25 mg a day. This was decreased to 12.5 mg and subsequently discontinued 3 weeks ago. The recent potassium was 4.4 millimoles per L on September 21. Serum chloride and bicarb levels were normal no alkalosis. Renal function has also been normal. She denies any polyuria or polydipsia. No history of any diarrhea. There is history of constipation. Currently she is on 8 tablets of potassium chloride. Of note she says not on diuretics at this time. However, daughter gave her some natural diuretics for edema She is on high dose of Amlodipine -10mg 12/25/23 c/o Cramps K was low KCL increased to 10 mg Not of diuretics Has leg edema - on Amlodipine 5 mg QD Urine K was high CTA - NO MAGDALENA 01/15/24 Feels better Edema resolved NO more cramps 02/15/2024. She was supposed to be on 8 tablets of potassium chloride but she is still taking 10 tablets. 06/24/24 c/o PAin in back for 2 months- waiting for scan Pain radiating down left left- on and off [facility] Medical History Numbness Wheezing Chronic radicular pain of lower back Foot pain, bilateral Joint pain in both hands Breast pain Hypokalemia Breast pain, right Allergies Migraines Renal calculi Bipolar disorder Chronic abdominal pain Osteoporosis Hyperparathyroidism Multinodular thyroid Depression Fibromyalgia Thrombocytosis Leukocytosis GERD (gastroesophageal reflux disease) Thyroid cancer PONV (postoperative nausea and vomiting) Elevated cholesterol Difficulty swallowing Vitamin D deficiency Anxiety Pulmonary nodule Asthma HTN (hypertension) Surgical History H/O pyloroplasty (03/27/24) History of excision of mass Hx of thyroidectomy H/O esophagogastroduodenoscopy H/O colonoscopy History of bilateral oophorectomy Hx of cholecystectomy S/P excision of lipoma History of total abdominal hysterectomy Hx of appendectomy Family History Father Diabetes mellitus Skin cancer Prostate cancer Mother HTN (hypertension) High cholesterol Mental health disorder Maternal Grandfather Myocardial infarction Maternal Grandmother No problems noted. Paternal Grandfather No problems noted. Paternal Grandmother Breast cancer Sister Mental health disorder Social History Household Members: None Housing: Apartment Are you a primary career development counselor to a significant other at home: No Do you presently have visiting nurse or other home services: No Alcohol intake: never Patient Tobacco Use Status: Current everyday Tobacco user Tobacco use type: Cigarette Cigarettes Per Day: 5 Years Smoked: 20 e-Cigarette/Vaping Use: Never Used Second Hand Smoke Exposure: No Advance Directives Date on File: 10/05/16 service: No Current occupational status: disabled Sexual orientation: Straight/Heterosexual Gender identity: Female Cognitive needs: No Hearing needs: No Vision needs: No Physical Exam Vital Signs: Last Vital Signs Pulse 94 06/24/24 09:39 BP 120/72 06/24/24 09:39 Pulse Ox 97 06/24/24 09:39 Oxygen Delivery Method Room Air 06/24/24 09:39 BMI result Body Mass Index 29.9 Results Reviewed Nephrology Results: Sodium 138 mmol/L (135-145) 06/20/24 Potassium 5.0 mmol/L (3.3-5.1) 06/20/24 Chloride 105 mmol/L (96-108) 06/20/24 Carbon Dioxide 24 mmol/L (22-29) 06/20/24 BUN 7 mg/dL (9-16) L 06/20/24 Creatinine 0.79 mg/dL (0.5-1.4) 06/20/24 Calcium 10.3 mg/dL (8.4-10.2) H 06/20/24 Assessment & Plan Assessment & Plan (1) HTN (hypertension): Code(s): I10 - Essential (primary) hypertension Category: Medical (2) Hypokalemia: Code(s): E87.6 - Hypokalemia Category: Medical Plan Middle-aged woman with multiple medical problems comes in with significant hypokalemia. Initially she was on chlorthalidone with potassium supplementation. However after lowering chlorthalidone potassium was still significantly low. Currently she is on 100 mEq of potassium supplementation. No alkalosis. She does have hypertension. In the past she had plasma renin and aldosterone levels which were all in the normal range. Serum Aldosterone was 19 and plasma renin was elevated at 14 Causes include diuretic use, No evidence of renin producing tumor, or renal artery stenosis , based on CT SCAN AVOID chlorthalidone Keep Spironolactone 25 mg DAILY and watch K Decrease KCL (10 meq ) from 10 tabs to 8 tabs Orders: Orders Basic Metabolic Panel 4 Months E87.6 - Hypokalemia, I10 - Essential (primary) hypertension Coding Level of Care Code Est Pt Level 4 (23317) Diagnoses HTN (hypertension) I10 Hypokalemia E87.6
== END 2024-06-24 09:59 | disposition home or self-care (01) ==
PROVIDERS: PCP Nurse Practitioner Family; Visit Provider Internal Medicine Hypertension Specialist
DX: I10 Essential (primary) hypertension (principal); E87.6 Hypokalemia
CPT/HCPCS: 99214

== ENCOUNTER → 2024-06-24 09:39 | Outpatient (BNVA) | payer OTHER, SELFPAY | PROVIDERS: PCP Nurse Practitioner Family; Visit Provider Internal Medicine Hypertension Specialist | DX: M81.0 Age-related osteoporosis without current pathological fracture (principal); E78.5 Hyperlipidemia, unspecified; E87.6 Hypokalemia; E05.90 Thyrotoxicosis, unspecified without thyrotoxic crisis or storm; I10 Essential (primary) hypertension; Z85.850 Personal history of malignant neoplasm of thyroid | CPT/HCPCS: 99212 ==

== ENCOUNTER 2024-06-24 10:15 | Outpatient (AMB) | payer OTHER, SELFPAY ==
[2024-06-24 10:20] VITALS: BP 136/90; PULSE 82
--- NOTE | 2024-06-24 10:20 | MHC.OFFVIS ---
Vital Signs 06/24/24 10:20 Height 5 ft 3 in Weight 169 lb 8.568 oz BMI 30.0 BP 136/90 H Blood Pressure Location Lt brachial Position Sitting Pulse 82 Pulse Source Pulse Oximeter Intake Visit Reasons: Osteoporosis-conf Intake Note: Patient present today for Osteoporosis follow up visit. Business Planning Analyst Required: Yes Business Planning Analyst Language: Rock Contractor Name: Althea Information Interpreted: non-clinical & clinical Accompanied by: Self / Same As Patient Allergies Sulfa (Sulfonamide Antibiotics) [SULFA (SULFONAMIDE ANTIBIOTICS)] Allergy (Intermediate, Verified 06/24/24 10:26) HIVES egg Allergy (Verified 06/24/24 10:26) Abdominal Pain strawberry Allergy (Verified 06/24/24 10:26) Abdominal Pain aspirin [ASPIRIN] Adverse Reaction (Intermediate, Verified 06/24/24 10:26) ABD PAIN morphine [MORPHINE] Adverse Reaction (Intermediate, Verified 06/24/24 10:26) Abdominal Pain almond Allergy (Severe, Uncoded 06/24/24 10:26) Stomack pain Lactose intollerance Allergy (Severe, Uncoded 06/24/24 10:26) Stomach pain, nausceau HPI Comments Details: 59 year-old female with past medical history nontoxic multinodular goiter who is seen in follow-up today for papillary thyroid microcarcinoma and hyperparathyroidism. The patient was seen initially by for 3.2 cm left-sided thyroid lobe nodule and underwent FNA with benign cytology. She complained of compressive symptoms in this was referred to Dr. Hennessy for surgical thyroidectomy. She also was found to have laboratory evidence of primary hyperparathyroidism. She underwent left hemithyroidectomy with bilateral inferior parathyroidectomy on 01/15/2019. Her thyroid surgical pathology revealed papillary microcarcinoma of the thyroid, 0.4 cm, unifocal, no angio invasion or lymphatic invasion, no extrathyroidal extension. PT1a pNX. No additional treatment was recommended. Surgical pathology from her parathyroid glands revealed a right inferior parathyroid to have normocellular pathology, and the left inferior parathyroid gland to be hypercellular. The right inferior parathyroid weight 200 mg with the left inferior parathyroid weighing 160 mg. Immediate postoperative PTH was 23. No intraoperative PTH was assessed. She did initially request completion thyroidectomy, but after consultation with Dr. Hennessy she has decided against this and wishes to instead proceed with yearly surveillance of her R sided thyroid nodules. She continued to complain of symptoms of body aches and abdominal pain. She was also complaining of the sensation of swelling in her neck. Labs were repeated and were largely unchanged. Calcium remained high normal. It was thought that when corrected for Albumin her Calcium was WNL. 24 hour urine calcium was WNL. Her thyroid US revealed interval growth of a nodule on in the R lobe, and a newly identified complex cystic subcentimeter nodule within the R lobe. She underwent FNA biopsy of this R sided nodule 04/23/2020 with benign cytology. Recent labs reveal hypokalemia and elevated LFTs. Her Atorvastatin was stopped by her PCP, and she was started on Potassium supplements. She was worked up for hyperaldosteronism, and labs were not consistent with this with an elevated renin level. She had a repeat DEXA which shows worsening in the spine, but stability in hip and distal forearm. Thyroid US: 05/27/2021 Right Thyroid Lobe: 5.5 x 2.2 x 2.4 cm, volume 15.2 mL. Previously 5.5 x 2.2 x 2.4 cm, volume 15.2 mL. Parenchyma: The gland echotexture is homogeneous. Thyroid vascularity is increased. Left Thyroid Lobe: Surgically absent. Isthmus: 0.3 cm in maximum AP dimension. Previously 0.2 cm. Estimated total number of nodules greater than or equal to 1 cm: 0. Housekeeping Room Attendant nodules are described as follows: 1.? Location: Right mid lateral. ?? ? Size: 0.9 x 0.5 x 0.7 cm, volume 0.16 mL. ?? ? Previously: 1.0 x 0.7 x 0.6 cm, volume 0.22 mL. ?? ? Nodule characteristics: ?? ? Composition: Solid (2). ?? ? Echogenicity: Hypoechoic (2). ?? ? Shape: Not taller than wide (0). ?? ? Margins: Smooth (0). ?? ? Echogenic Foci: None (0). ? ACR TI-RADS total points: 4 ?? ? ACR TI-RADS category: 4 ? Significant change in size (>/= 20% in 2 dimensions and minimal increase of 2 mm or 50% or greater increase in volume): No ?? ? Change in features: No ?? ? Change in ACR TI-RADS risk category: No 2.? Location: Right inferior. ?? ? Size: 0.4 x 0.4 x 0.5 cm, volume 0.04 mL. ?? ? Previously: New since the prior study. ?? ? Nodule characteristics: ?? ? Composition: Cystic(0). ?? ? ACR TI-RADS total points: 0 ?? ? ACR TI-RADS category: 1 ?? ? 3.? Location: Right inferior. ?? ? Size: 0.5 x 0.3 x 0.3 cm, volume 0.02 mL. ?? ? Previously: 0.3 x 0.3 x 0.4 cm, volume 0.02 mL. ?? ? Nodule characteristics: ?? ? Composition: Cystic(0). ?? ? ACR TI-RADS total points: 0 ?? ? ACR TI-RADS category: 1 ? Significant change in size (>/= 20% in 2 dimensions and minimal increase of 2 mm or 50% or greater increase in volume): ?? ? Change in features: ?? ? Change in ACR TI-RADS risk category: NODES: No lymphadenopathy is seen in the tissue surrounding the thyroid gland. DEXA: 08/19/2021 FINDINGS: AP SPINE L1-L4: Current: BMD 0.801 g/cm2, Z-score -2.6, T-score -3.2, osteoporosis, 6.5% decrease from baseline (<5% change is not significant). Baseline: BMD 0.857 g/cm2. LEFT FEMUR, NECK: Current: BMD 0.821 g/cm2, Z-score -0.7, T-score -1.6, osteopenia. Baseline: BMD 0.845 g/cm2. LEFT FEMUR, TOTAL: Current: BMD 0.911 g/cm2, Z-score -0.3, T-score -0.8, normal, 0.0% no change from baseline (<5% change is not significant). Baseline: BMD 0.911 g/cm2. LEFT FOREARM RADIUS 33%: BMD 0.721 g/cm2, Z-score -1.4, T-score -1.8, osteopenia, 0.8% decrease from baseline (<5% change is not significant). Baseline: BMD 0.727 g/cm2. Labs: On Evenity since 02/2024 . c/o injection site reaction in abd . Has never taken injection in shoulder . Has fibromyalgia [facility] Medical History Numbness Wheezing Chronic radicular pain of lower back Foot pain, bilateral Joint pain in both hands Breast pain Hypokalemia Breast pain, right Allergies Migraines Renal calculi Bipolar disorder Chronic abdominal pain Osteoporosis Hyperparathyroidism Multinodular thyroid Depression Fibromyalgia Thrombocytosis Leukocytosis GERD (gastroesophageal reflux disease) Thyroid cancer PONV (postoperative nausea and vomiting) Elevated cholesterol Difficulty swallowing Vitamin D deficiency Anxiety Pulmonary nodule Asthma HTN (hypertension) Surgical History H/O pyloroplasty (03/27/24) History of excision of mass Hx of thyroidectomy H/O esophagogastroduodenoscopy H/O colonoscopy History of bilateral oophorectomy Hx of cholecystectomy S/P excision of lipoma History of total abdominal hysterectomy Hx of appendectomy Family History Father Diabetes mellitus Skin cancer Prostate cancer Mother HTN (hypertension) High cholesterol Mental health disorder Maternal Grandfather Myocardial infarction Maternal Grandmother No problems noted. Paternal Grandfather No problems noted. Paternal Grandmother Breast cancer Sister Mental health disorder Social History Household Members: None Housing: Apartment Are you a primary family day care worker to a significant other at home: No Do you presently have visiting nurse or other home services: No Alcohol intake: never Patient Tobacco Use Status: Current everyday Tobacco user Tobacco use type: Cigarette Cigarettes Per Day: 5 Years Smoked: 20 e-Cigarette/Vaping Use: Never Used Second Hand Smoke Exposure: No Advance Directives Date on File: 10/05/16 service: No Current occupational status: disabled Sexual orientation: Straight/Heterosexual Gender identity: Female Cognitive needs: No Hearing needs: No Vision needs: No Physical Exam Vital Signs: Last Vital Signs Pulse 82 06/24/24 10:20 BP 136/90 H 06/24/24 10:20 BMI result Body Mass Index 30.0 Assessment & Plan Assessment & Plan (1) History of thyroid cancer: Code(s): Z85.850 - Personal history of malignant neoplasm of thyroid Category: Medical Plan: This is a 58-year-old female with a history of micro papillary thyroid cancer status post left hemithyroidectomy. Right lobe is a presence of subcentimeter nodules. She appears to be clinically and biochemically euthyroid. Recent ultrasound shows stability in the size of the nodules Plan is for her to follow-up with Dr. Cohen an floor representative in our practice with expertise in neck ultrasound and thyroid cancer for future surveillance (2) Osteoporosis: Code(s): M81.0 - Age-related osteoporosis without current pathological fracture Category: Medical Plan: Status post parathyroidectomy with DEXA bone density 2 years ago showing significant osteoporosis in the spine. Secondary workup was otherwise negative. Repeat DEXA shows [id number] osteoporosis of lumbar spine Plan is to continue the Evenity for 1 year's time up to 02/2025 and then will transition to anti resorptive therapy. I suggested alternative injection site maybe the shoulders instead of the abdomen. She did not have any injection site reactions with the 1st 3 injections. I am not sure that any of her other complaints are related to the event any as she does have underlying fibromyalgia and has follow-up with Rheumatology an appointment with pain management Orders: Orders Free T4 (Free Thyroxine) Today Z85.850 - Personal history of malignant neoplasm of thyroid Thyroid Stimulating Hormone Today Z85.850 - Personal history of malignant neoplasm of thyroid Coding Level of Care Code Est Pt Level 3 (69015) Diagnoses History of thyroid cancer Z85.850 Osteoporosis M81.0
== END 2024-06-24 11:32 | disposition home or self-care (01) ==
PROVIDERS: PCP Nurse Practitioner Family; Visit Provider Internal Medicine Endocrinology, Diabetes & Metabolism
DX: Z85.850 Personal history of malignant neoplasm of thyroid (principal); M81.0 Age-related osteoporosis without current pathological fracture
CPT/HCPCS: 99213

== ENCOUNTER 2024-07-04 08:33 | Outpatient (REF) | payer OTHER, SELFPAY ==
[2024-07-04 08:54] LABS: MANUAL DIFF FLAG NO
[2024-07-04 09:15] LABS: Basophils Absolute Auto 0.1 X10*3/uL (0.0-0.2); Basophils Percent Auto 0.7 % (0-2); Eosinophils Absolute Auto 0.3 X10*3/uL (0.0-0.4); Eosinophils Percent Auto 2.2 % (0-4); Hemoglobin 15.3 g/dl (12.0-16.0); Imm Gran Abs Auto 0.06 X10*3/uL (0.00-0.03); Imm Gran Pct Auto 0.5 % (0.0-0.4); Lymphocytes Absolute Auto 4.4 X10*3/uL (1.2-4.9); Lymphocytes Percent Auto 34.6 % (20-40); Mean Corpuscular Hemoglobin 31.7 pg (27.0-33.0); Mean Corpuscular Volume 93.2 fL (80.0-98.0); Mean Platelet Volume 8.6 fL (9.4-12.3); Monocytes Absolute Auto 1.1 X10*3/uL (0.1-1.2); Monocytes Percent Auto 8.6 % (2-11); Neutrophils Absolute Auto 6.8 x10*3/uL (2.0-8.3); Neutrophils Percent Auto 53.4 % (45-73); Platelet Count 453 X10*3/uL (160-400); Red Blood Count 4.83 X10*6/uL (4.20-5.50); Red Cell Distribution Width 13.3 % (11.0-16.0); White Blood Count 12.7 X10*3/uL (4.8-10.8)
[2024-07-04 09:28] LABS: Appearance Urine Clear; Color Urine Yellow; Glucose Urine UA Negative (Negative); Leukocyte Esterase Urine Negative (Negative); Nitrite Urine Negative (Negative); PH 5.5 (5.0-9.0); Specific Gravity - Urine 1.015 (1.005-1.025); Urine Blood Negative (Negative); Urine Ketones Negative (Negative); Urine Protein Negative (Neg-Trace)
[2024-07-04 09:44] LABS: Alanine Aminotransferase 59 U/L (0-31); Albumin Level 4.8 g/dL (3.5-5.0); Alkaline Phosphatase 92 U/L (39-117); Anion Gap 12 (12-20); Aspartate Amino Transferase 35 U/L (5-31); Bilirubin Total 0.4 mg/dL (0.0-1.0); Blood Urea Nitrogen 11 mg/dL (9-16); Calcium 10.6 mg/dL (8.4-10.2); Carbon Dioxide 25 mmol/L (22-29); Chloride 107 mmol/L (96-108); Cholesterol 210 mg/dL (<200); Estimated Glomerular Filt Rate > 60; Glucose Fasting 100 mg/dL (60-99); HDL Cholesterol 46 mg/dL (>40); LDL Cholesterol Calculated 131 mg/dL (<100); Sodium 140 mmol/L (135-145); Total Protein 7.9 g/dL (6.5-8.0); Triglycerides 165 mg/dL (<150)
[2024-07-04 10:05] LABS: Free T4 (Free Thyroxine) 0.94 ng/dL (0.71-1.85); Thyroid Stimulating Hormone 1.53 uIU/mL (0.32-4.0)
== END 2024-07-04 08:34 | disposition home or self-care (01) ==
LOC: HO.LAB 08:33
PROVIDERS: Absent Provider Nurse Practitioner Family; PCP Nurse Practitioner Family; Visit Provider Internal Medicine Endocrinology, Diabetes & Metabolism
DX: Z00.01 Encounter for general adult medical examination with abnormal findings (principal); Z85.850 Personal history of malignant neoplasm of thyroid
CPT/HCPCS: 36415; 80053; 80061; 81003; 84439; 84443; 85025; 99212

== ENCOUNTER 2024-07-04 09:02 | Outpatient (AMB) | payer OTHER, SELFPAY ==
--- NOTE | 2024-07-04 09:20 | A.OFFVIS_ITS ---
Vital Signs 07/04/24 09:24 Height 5 ft 3 in Weight 167 lb 8.821 oz BMI 29.7 Pulse 80 Intake Visit Reasons: 2 month follow up s/p exp lar pyloroplasty Intake Note: Patient is seen in office for 2 month follow up visit, post exp lap- pyloroplasty. Pt c/o: pain in the incision, unable to bend, food gives her nausea and vomit, even the smell, Fruit Grader Operator Required: Yes Fruit Grader Operator Language: Lead Technologist In Cytogenetics Services: Fruit Grader Operator Present Fruit Grader Operator Name: Debby RAMIREZ Information Interpreted: non-clinical & clinical Vice President Research: Vice President Research Present Accompanied by: Self / Same As Patient Allergies Sulfa (Sulfonamide Antibiotics) [SULFA (SULFONAMIDE ANTIBIOTICS)] Allergy (Intermediate, Verified 07/04/24 09:22) HIVES egg Allergy (Verified 07/04/24 09:22) Abdominal Pain strawberry Allergy (Verified 07/04/24 09:22) Abdominal Pain aspirin [ASPIRIN] Adverse Reaction (Intermediate, Verified 07/04/24 09:22) ABD PAIN morphine [MORPHINE] Adverse Reaction (Intermediate, Verified 07/04/24 09:22) Abdominal Pain almond Allergy (Severe, Uncoded 07/04/24 09:22) Stomack pain Lactose intollerance Allergy (Severe, Uncoded 07/04/24 09:22) Stomach pain, nausceau Medication List - Last Reconciled 07/04/24 by Raymundo Walton MD albuterol sulfate 2.5 mg (3 mL) inhalation DAILY PRN amitriptyline 50 mg (2 x 25 mg) PO BEDTIME 30 days amlodipine 10 mg PO DAILY azelastine 1 spray intranasal BID azithromycin 500 mg PO DAILY 5 days beclomethasone dipropionate 80 mcg/actuation (Qvar RediHaler) 1 inh inhalation BID 30 days cholecalciferol (vitamin D3) 25 mcg PO DAILY clonazepam 0.5 mg PO DAILY PRN clonazepam 1 mg PO BEDTIME PRN diclofenac sodium 1% 2 grams topical BID PRN NS diclofenac sodium 50 mg PO BID PRN famotidine 40 mg PO BEDTIME fluvoxamine 100 mg PO BID gabapentin 600 mg PO TID gabapentin 100 mg PO TID galcanezumab-gnlm (Emgality Pen) 120 mg subcut Q30D hydrocortisone 2.5% 1 appl AR Q8-12H hydrocortisone acetate (Anusol-HC) 25 mg AR BID PRN loratadine 10 mg PO DAILY memantine 10 mg PO Q OTHER DAY montelukast 10 mg PO BEDTIME multivitamin with folic acid 400 mcg (Daily-Laxmi (with folic acid)) 1 tab PO DAILY omega-3 acid ethyl esters 1 cap PO BID 90 days omeprazole 40 mg PO DAILY ondansetron 8 mg PO Q8H PRN polyethylene glycol 3350 (Gavilax) 17 grams PO DAILY potassium chloride ER 10 mEq PO DAILY 30 days pravastatin 10 mg PO BEDTIME prednisone 40 mg (2 x 20 mg) PO DAILY 5 days rizatriptan 10 mg PO DAILY PRN romosozumab-aqqg (Evenity) 210 mg subcut Q28D sennosides (Senna Laxative) 17.2 mg (2 x 8.6 mg) PO BEDTIME spironolactone 50 mg (2 x 25 mg) PO DAILY tizanidine 4 mg PO BID PRN 28 days tramadol 50 mg PO DAILY PRN HPI Comments Details: 59-year-old female patient returning for postop evaluation after a pyloroplasty performed on 03/27/2024. Postoperatively she had a suture which became infected in lower incision but this has now healed. She reports having some pain in the incision especially when bending and needs to have her daughter shave her legs. She also reports upper abdominal discomfort with nausea and vomiting. She has a known history of a hiatal hernia. She denies any bleeding or discharge from the incision. [facility] Medical History Numbness Wheezing Chronic radicular pain of lower back Foot pain, bilateral Joint pain in both hands Breast pain Hypokalemia Breast pain, right Allergies Migraines Renal calculi Bipolar disorder Chronic abdominal pain Osteoporosis Hyperparathyroidism Multinodular thyroid Depression Fibromyalgia Thrombocytosis Leukocytosis GERD (gastroesophageal reflux disease) Thyroid cancer PONV (postoperative nausea and vomiting) Elevated cholesterol Difficulty swallowing Vitamin D deficiency Anxiety Pulmonary nodule Asthma HTN (hypertension) Surgical History H/O pyloroplasty (03/27/24) History of excision of mass Hx of thyroidectomy H/O esophagogastroduodenoscopy H/O colonoscopy History of bilateral oophorectomy Hx of cholecystectomy S/P excision of lipoma History of total abdominal hysterectomy Hx of appendectomy Family History Father Diabetes mellitus Skin cancer Prostate cancer Mother HTN (hypertension) High cholesterol Mental health disorder Maternal Grandfather Myocardial infarction Maternal Grandmother No problems noted. Paternal Grandfather No problems noted. Paternal Grandmother Breast cancer Sister Mental health disorder Social History Household Members: None Housing: Apartment Are you a primary youth care specialist to a significant other at home: No Do you presently have visiting nurse or other home services: No Alcohol intake: never Patient Tobacco Use Status: Current everyday Tobacco user Tobacco use type: Cigarette Cigarettes Per Day: 5 Years Smoked: 20 e-Cigarette/Vaping Use: Never Used Second Hand Smoke Exposure: No Advance Directives Date on File: 10/05/16 service: No Current occupational status: disabled Sexual orientation: Straight/Heterosexual Gender identity: Female Cognitive needs: No Hearing needs: No Vision needs: No Review of Systems Const All systems reviewed & are unremarkable except as noted in HPI and below Physical Exam Vital Signs: Last Vital Signs Pulse 80 07/04/24 09:24 BMI result Body Mass Index 29.7 Resp Effort & Inspection: normal respiratory effort GI Other: Soft and nondistended. Upper midline incision is clean, dry, and intact. No hematoma or seroma. No hernia palpable. Extrem General: No edema Assessment & Plan Assessment & Plan (1) H/O pyloroplasty: Onset Date: 03/27/24 Comment: Raymundo Walton MD-surgeon Code(s): Z98.890 - Other specified postprocedural states Category: Surgical Plan 59-year-old female patient status post pyloroplasty now with incisional pain and complaints of nausea and vomiting. No palpable hernias appreciated however a small occult hernia may be present. I recommended further evaluation with a abdominal ultrasound. The patient understands and agrees with the plan. I also suggested she follow up with Gastroenterology for the nausea and vomiting. Follow-up appointment will be made. Orders: Orders US abdomen limited Today Z98.890 - Other specified postprocedural states Coding Level of Care Code Est Pt Level 3 (98798) Diagnoses H/O pyloroplasty Z98.890
[2024-07-04 09:24] VITALS: PULSE 80; BMI 29.7
== END 2024-07-04 09:42 | disposition home or self-care (01) ==
PROVIDERS: PCP Nurse Practitioner Family; Visit Provider Surgery
DX: Z98.890 Other specified postprocedural states (principal)
CPT/HCPCS: 99213

== ENCOUNTER 2024-07-11 13:35 | Outpatient (AMB) | payer OTHER, SELFPAY ==
--- NOTE | 2024-07-11 14:15 | AM.OFFVISNUR ---
Intake Visit Reasons: Evenity #5 Allergies Sulfa (Sulfonamide Antibiotics) [SULFA (SULFONAMIDE ANTIBIOTICS)] Allergy (Intermediate, Verified 07/04/24 09:22) HIVES egg Allergy (Verified 07/04/24 09:22) Abdominal Pain strawberry Allergy (Verified 07/04/24 09:22) Abdominal Pain aspirin [ASPIRIN] Adverse Reaction (Intermediate, Verified 07/04/24 09:22) ABD PAIN morphine [MORPHINE] Adverse Reaction (Intermediate, Verified 07/04/24 09:22) Abdominal Pain almond Allergy (Severe, Uncoded 07/04/24 09:22) Stomack pain Lactose intollerance Allergy (Severe, Uncoded 07/04/24 09:22) Stomach pain, nausceau Office Meds romosozumab-aqqg 210 mg/2.34 mL(105 mg/1.17 mL x2)subcutaneous syringe Performing Provider: Deuce Valdes MD Performing Location: [facility] – [place] Endocrinology Administered by: Debby Terrazas RN on 07/11/24 14:15 Dose Route Admin Location Dispensed Lot Number Expiration Date [place] Direct Mail Manager 210 mg subcut bilateral upper arms 2.34 mL [id number] 03/03/25 15814-490-12 [facility]GEN Comments: Consent form signed by patient. Pt tolerated injection well. Given in upper arms d/t possible reaction to evenity #4. Pt was evaluated by Dr. Valdes on 06/24 and plan was to change site of injection. Pt aware to call our office with any redness, warmth or swelling of the injection sites. Assessment & Plan Assessment & Plan Orders: Orders AMB Romosozumab Injection Patient Supplied Today M81.0 - Age-related osteoporosis without current pathological fracture Medications: New romosozumab-aqqg 210 mg (2.34 mL) subcut ONCE 2.34 mL 0RF M81.0 - Age-related osteoporosis without current pathological fracture Discontinued naloxone may repeat as needed until emergency medical assistance becomes available. Discontinued Reason: Doctor's Order 10 mg (0.4 mL) IM ONCE PRN 4 mL 1RF opioid overdose
== END 2024-07-11 14:03 | disposition home or self-care (01) ==
LOC: HO.ENCR 13:35
PROVIDERS: PCP Nurse Practitioner Family
DX: M81.0 Age-related osteoporosis without current pathological fracture (principal)

== ENCOUNTER → 2024-07-11 13:35 | Outpatient (BNVA) | payer OTHER, SELFPAY | PROVIDERS: PCP Nurse Practitioner Family | DX: M81.0 Age-related osteoporosis without current pathological fracture (principal) | CPT/HCPCS: 96372; J3111 ==

== ENCOUNTER 2024-07-25 09:59 | Outpatient (REF) | payer OTHER, SELFPAY | END 2024-07-25 10:00 | disposition home or self-care (01) | LOC: HO.US 09:59 | PROVIDERS: PCP Nurse Practitioner Family; Visit Provider Surgery | DX: R10.9 Unspecified abdominal pain (principal); Z98.890 Other specified postprocedural states | CPT/HCPCS: 76705 ==

== ENCOUNTER 2024-07-31 08:18 | Outpatient (REF) | payer OTHER, SELFPAY ==
[2024-07-31 11:26] LABS: Anion Gap 15 (12-20); Blood Urea Nitrogen 9 mg/dL (9-16); Calcium 9.5 mg/dL (8.4-10.2); Carbon Dioxide 21 mmol/L (22-29); Chloride 107 mmol/L (96-108); Estimated Glomerular Filt Rate > 60; Glucose Random 100 mg/dL (60-115); Potassium 3.5 mmol/L (3.3-5.1); Sodium 139 mmol/L (135-145)
== END 2024-07-31 08:19 | disposition home or self-care (01) ==
LOC: HO.LAB 08:18
PROVIDERS: PCP Nurse Practitioner Family; Visit Provider Internal Medicine Hypertension Specialist
DX: R91.8 Other nonspecific abnormal finding of lung field (principal); E87.6 Hypokalemia; C73 Malignant neoplasm of thyroid gland; J45.40 Moderate persistent asthma, uncomplicated; K21.9 Gastro-esophageal reflux disease without esophagitis; F17.200 Nicotine dependence, unspecified, uncomplicated; Z23 Encounter for immunization
CPT/HCPCS: 36415; 80048; 90471; 90656; 99212

== ENCOUNTER 2024-07-31 08:30 | Outpatient (AMB) | payer OTHER, SELFPAY ==
[2024-07-31 08:41] VITALS: BP 140/74; PULSE 99; O2SAT 96; BMI 29.7
--- NOTE | 2024-07-31 08:41 | A.OFFVIS_ITS ---
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: No Allergies Sulfa (Sulfonamide Antibiotics) [SULFA (SULFONAMIDE ANTIBIOTICS)] Allergy (Intermediate, Verified 07/31/24 08:43) HIVES egg Allergy (Verified 07/31/24 08:43) Abdominal Pain strawberry Allergy (Verified 07/31/24 08:43) Abdominal Pain aspirin [ASPIRIN] Adverse Reaction (Intermediate, Verified 07/31/24 08:43) ABD PAIN morphine [MORPHINE] Adverse Reaction (Intermediate, Verified 07/31/24 08:43) Abdominal Pain almond Allergy (Severe, Uncoded 07/31/24 08:43) Stomack pain Lactose intollerance Allergy (Severe, Uncoded 07/31/24 08:43) Stomach pain, nausceau HPI Comments Details: The patient is a 59year-old woman with a known history of asthma in addition to pulmonary nodules. More recently she underwent thyroid surgery for an abnormal thyroid nodule. She had a partial thyroidectomy and the results were positive for cancer. She also has other nodules in the left lobe, but, apparently they did decrease in size. From a respiratory status she has been stable on the current respiratory regimen. She has not required prednisone. Also to note that she had a positive ROSE titer. She did follow-up with Rheumatology who data complete connective tissue disease workup and was negative. We did review her last CT scan of the chest that was done back in October 2018 for right middle lobe nodular density that appears to be partially calcified but with a haziness a rounded suggesting some degree of inflammation. Based on the fact the patient has a new diagnosis of thyroid cancer in the fact that her last CT scan was year ago the patient needs to have a repeat CT scan at this time. Otherwise the patient is without any other complaints. 11/08/2021 the patient is here for a pulmonary follow-up visit. Overall she has been complaining of increasing shortness of breath and also weight gain. She has been very frustrated with weight gain and also swelling. She will be following up with Rheumatology to see if there is any issues with her fibromyalgia resulting the swelling. She also has an elevated ROSE that she had in the past. She follow-up with Rheumatology regarding that as well. In the meantime the patient had a CT scan of the chest back in March 2021 demonstrating pulmonary nodules largest measuring 6 mm in size. She also history of thyroid cancer. She was supposed to have a CT scan previously but due to the pandemic she has not done so. In view of her worsening shortness of breath and history of thyroid cancer will go ahead and plan to repeat the CT scan prior to the next visit. She continues use her respiratory therapy. She had ran out of her sing ular because she did not follow-up. Therefore most likely some of the allergy symptoms and shortness of breath may be from the discontinuation of the medication. I am hopeful that her respiratory status improves when she gets back on therapy. She does have a rescue inhaler as well. If however after starting her Singulair in using her antihistamines if she continues to have increasing shortness of breath and wheezing and need for her rescue inhaler more than twice a week she will call and I will send her maintenance inhaler. 12/09/2022 the patient is here for pulmonary follow-up visit. The patient is struggling with multiple ailments. She is followed closely by multiple biomedical equipment support specialist. She is getting pretty hard of all her medical issues. Has significant elements. She is working closely with GI and also Rheumatology. In the meantime she did have a CT scan of the chest requested by me demonstrating stable pulmonary nodules. The pulmonary nodules have not changed since 2017 so therefore no further intervention is warranted. She continues use her respiratory therapy. She still continues to be symptomatic with some coughing wheezing at times. In addition to that she complains of significant pruritus throughout her body and also some difficulties tolerating foods. She did have a food RAST study but was very limited. Therefore, I do believe that in view of all her elements and allergic reactions she should have a full allergy evaluation with scratch testing. Will go ahead and refer to Allergy at this time. In the meantime she can continue with her antihistamine therapy and also add Pepcid. 12/15/2023 the patient is here for pulmonary follow-up visit. She has been doing fairly well from a respiratory status. She does have episodes of shortness of breath and wheezing. They can be intermittent. Typically does respond to the rescue inhaler. She typically does not using inhaler often does not twice a week. The patient does use her maintenance inhaler. In addition to that she can dealing with other issues such as lower extremity edema. She was taken off her diuretic because she was having low potassium levels. She is following closely now with Nephrology. She is taking high-dose supplement. Her last potassium level was stable and she is going to have another drawn. The patient also has been complaining of pleuritic skin. She has been scratching a lot. She does not have a rash. She is wondering if his allergies. She had been taking antihistamine therapy. As far as her pulmonary nodules the CT scan that she had last back in 2020 demonstrated stable pulmonary nodules more than 2 years. The patient does not need any serial this time. 07/31/2024 the patient is here for pulmonary follow-up visit. The patient has multiple complaints. She does have issues with back in addition to her neck and also having abdominal discomfort. She is following closely with multiple specialists. As far as her breathing she seems to be doing okay. She does not get a great response from the QVAR. She does use her Ventolin couple times a day. She does find relief when she uses the Ventolin. The patient also had a bout of a respiratory illness resulting in an asthma flare-up. She was treated with medicines and she is back to her baseline. Will go ahead and optimize her respiratory medication switching her from QVAR to Dulera. She can use it 2 puffs twice a day make sure she rinses her mouth. She continue the Ventolin. Unfortunately she continues to smoke cigarettes. She would like to quit. Will go ahead and send her a patch. She knows not to smoke when she has a patch on. In addition to that will start her on the lung cancer screening program. [facility] Medical History (Updated 07/31/24 @ 08:56 by Murray Martinez MD) Smoker Numbness Wheezing Chronic radicular pain of lower back Foot pain, bilateral Joint pain in both hands Breast pain Hypokalemia Breast pain, right Allergies Migraines Renal calculi Bipolar disorder Chronic abdominal pain Osteoporosis Hyperparathyroidism Multinodular thyroid Depression Fibromyalgia Thrombocytosis Leukocytosis GERD (gastroesophageal reflux disease) Thyroid cancer PONV (postoperative nausea and vomiting) Elevated cholesterol Difficulty swallowing Vitamin D deficiency Anxiety Pulmonary nodule Asthma HTN (hypertension) Surgical History H/O pyloroplasty (03/27/24) History of excision of mass Hx of thyroidectomy H/O esophagogastroduodenoscopy H/O colonoscopy History of bilateral oophorectomy Hx of cholecystectomy S/P excision of lipoma History of total abdominal hysterectomy Hx of appendectomy Family History Father Diabetes mellitus Skin cancer Prostate cancer Mother HTN (hypertension) High cholesterol Mental health disorder Maternal Grandfather Myocardial infarction Maternal Grandmother No problems noted. Paternal Grandfather No problems noted. Paternal Grandmother Breast cancer Sister Mental health disorder Social History Household Members: None Housing: Apartment Are you a primary home care nurse to a significant other at home: No Do you presently have visiting nurse or other home services: No Alcohol intake: never Patient Tobacco Use Status: Current everyday Tobacco user Tobacco use type: Cigarette Cigarettes Per Day: 5 Years Smoked: 20 e-Cigarette/Vaping Use: Never Used Second Hand Smoke Exposure: No Advance Directives Date on File: 10/05/16 service: No Current occupational status: disabled Sexual orientation: Straight/Heterosexual Gender identity: Female Cognitive needs: No Hearing needs: No Vision needs: No Review of Systems Const Denies night sweats and Reports weight gain Eyes Denies change in vision ENT Denies change in voice, Denies lip swelling, Denies mouth pain, Reports nasal congestion, Reports nasal discharge and Denies tongue swelling Card Denies chest pain Resp Reports cough and Reports wheezing GI Reports as per HPI, Reports abdominal pain, Reports bloating, Reports change in stool character, Reports constipation, Reports dyspepsia and Reports heartburn Musc Reports myalgias, Reports arthralgias and Reports joint swelling Skin/Breast Denies rash Neuro Denies Neuro-related abnormal movements Psych Denies no additional complaints Christopher/Lymph Denies easy bleeding and Denies lymphadenopathy Aller/Immun Denies lip swelling, Denies tongue swelling and Reports wheezing Physical Exam Vital Signs: Last Vital Signs Pulse 99 07/31/24 08:41 BP 140/74 H 07/31/24 08:41 Pulse Ox 96 07/31/24 08:41 Oxygen Delivery Method Room Air 07/31/24 08:41 BMI result Body Mass Index 29.7 Const Orientation/consciousness: patient oriented x3 HEENT Head: Yes normocephalic Resp Effort & Inspection: normal respiratory effort and able to speak in complete sentences Auscultation: clear to auscultation bilaterally Cardio Rate: regular rate Rhythm: regular rhythm Back/Spine/Pelvis Other: Bilateral posterior cervical tightness and tenderness. Neuro Other: DTR testing limited d/t pt anxious and moving. No pronator drift- but pt performed test slowly. General: patient oriented x3, gait normal and moves all extremities Cranial nerves: Yes Individual cranial nerve findings present II: normal, III: normal, IV: normal, V: abnormal (increased sensation on left), : normal, VII: normal, VIII: normal, IX: normal, X: normal, XI: normal and XII: normal Cognition (Neuro): normal cognition Gait exam (Neuro): Normal gait present Motor exam (neuro): 5/5 motor strength present throughout and Tremors during motor activity present (BUE mild postural tremor) Deep tendon reflexes (DTR's): Right triceps reflex intensity grade: 2+, Left triceps reflex intensity grade: 2+, Rt Biceps (C5, C6): 2+, Left biceps reflex intensity grade: 2+, Right brachioradialis reflex intensity grade: 2+, Left brachioradialis reflex intensity grade: 2+, Right patellar reflex intensity grade: 2+, Left patellar reflex intensity grade: 2+, Right ankle reflex intensity grade: 2+ and Left ankle reflex intensity grade: 2+ Coordination: [id number] test normal, iyfx-[id number] test normal, tandem gait normal and Romberg test negative Pupils: Normal pupillary reactivity/response: bilateral Psych Appearance: grossly normal Mental Status: mental status grossly normal Speech and movement: Clear speech present Affect: normal affect (more anxious during physical exam) Attitude: cooperative Thought process: Normal thought process present Office Procedures Flu Questionnaire Does the patient have a severe egg allergy?: No Does the patient have severe life threatening allergies?: No Does the patient have a fever or illness today?: No Has the patient ever had Guillain-[place] Syndrome?: No Has the patient ever had any past reaction to a flu shot?: No Immunizations Fluarix Triv [id number] (PF) 45 mcg (15 mcg x 3)/0.5 mL IM syringe Performing Provider: Murray Martinez MD Performing Location: [facility] Administered by: Faby Aparicio LPN on 07/31/24 09:14 Dose Route Admin Location Dispensed Lot Number Expiration Date NDC Stock Blender 0.5 mL IM Left Deltoid 0.5 mL [id number] 03/03/25 [id number] VIS Given Date VIS Provided VIS Publication Date 07/31/24 Single Vaccine 21 Eligibility Eligibility Date Funding Source Not [facility] Eligible 07/31/24 Private Assessment & Plan Assessment & Plan (1) Pulmonary nodules: Comment: stable 2017 to present. Benign. Code(s): R91.8 - Other nonspecific abnormal finding of lung field Category: Medical (2) Thyroid cancer: Code(s): C73 - Malignant neoplasm of thyroid gland Category: Medical (3) Asthma: Code(s): J45.909 - Unspecified asthma, uncomplicated Category: Medical Qualifiers: Asthma complication type: uncomplicated Asthma persistence: persistent Asthma severity: moderate Qualified Code(s): J45.40 - Moderate persistent asthma, uncomplicated Plan: Continue respiratory medications (4) Acid reflux: Code(s): K21.9 - Gastro-esophageal reflux disease without esophagitis Category: Medical Qualifiers: Esophagitis presence: without esophagitis Qualified Code(s): K21.9 - Gastro-esophageal reflux disease without esophagitis (5) Smoker: Code(s): F17.200 - Nicotine dependence, unspecified, uncomplicated Category: Social Hx Plan continue montelukast continue antihistamines continue reflux diet stop QVAR start Dulera BID LDCT tobacco cessation: patch short-acting beta agonist as needed follow-up in 1 year Orders: Orders Influenza [id number] Immunization 07/31/24 J45.40 - Moderate persistent asthma, uncomplicated Referrals Lung Cancer Screening Referral F17.200 - Nicotine dependence, unspecified, uncomplicated Medications: New mometasone-formoterol 200-5 mcg/actuation (Dulera) 2 puffs inhalation Q12H 13 grams 11RF 30 days nicotine 1 patch transdermal DAILY 28 ea 3RF 28 days Discontinued beclomethasone dipropionate 80 mcg/actuation (Qvar RediHaler) Discontinued Reason: Doctor's Order 1 inh inhalation BID 30 days 10.6 grams 11RF Coding Level of Care Code Est Pt Level 4 (94728) Diagnoses Pulmonary nodules R91.8 Thyroid cancer C73 Moderate persistent asthma without complication J45.40 Asthma complication type: uncomplicated Asthma persistence: persistent Asthma severity: moderate Gastroesophageal reflux disease without esophagitis K21.9 Esophagitis presence: without esophagitis Smoker F17.200 Time Spent (min) 16
== END 2024-07-31 09:09 | disposition home or self-care (01) ==
PROVIDERS: PCP Nurse Practitioner Family; Visit Provider Hospitalist
DX: R91.8 Other nonspecific abnormal finding of lung field (principal); C73 Malignant neoplasm of thyroid gland; J45.40 Moderate persistent asthma, uncomplicated; K21.9 Gastro-esophageal reflux disease without esophagitis; F17.200 Nicotine dependence, unspecified, uncomplicated
CPT/HCPCS: 99214

== ENCOUNTER 2024-08-05 08:53 | Outpatient (REF) | payer OTHER, SELFPAY ==
--- NOTE | ~2024-08-05 | XR_ITS ---
EXAMINATION: XR CERVICAL SPINE CLINICAL INFORMATION: Age-related osteoporosis without current pathological fracture M81.0. COMPARISON: XR Cervical spine without flexion/extension 08/16/2022 TECHNIQUE: 6 views of the cervical spine, inclusive of flexion and extension views, were obtained. FINDINGS: The vertebral alignment is normal. No intrinsic bony abnormality. No fracture or subluxation. Degenerative changes with disc space narrowing and osteophyte formation is seen at C5/6 and C6/7. Posterior facet joints appear well-maintained. No significant neural foraminal osseous encroachment. Surgical clips are seen in the paratracheal soft tissues The surrounding prevertebral soft tissues are otherwise unremarkable. XR/XR cervical spine 4V IMPRESSION: Degenerative disc disease at C5/6 and C6/7. Electronically signed by: Demetrius Bates MD 08/27/2024 11:10 AM RAQUEL YUSUF
== END 2024-08-05 08:54 | disposition home or self-care (01) ==
LOC: HO.XRAY 08:53
PROVIDERS: PCP Nurse Practitioner Family; Referring Provider Nurse Practitioner Family; Visit Provider Nurse Practitioner Family
DX: M54.2 Cervicalgia (principal); M81.0 Age-related osteoporosis without current pathological fracture; M79.7 Fibromyalgia; M54.16 Radiculopathy, lumbar region; G89.29 Other chronic pain; M47.817 Spondylosis without myelopathy or radiculopathy, lumbosacral region
CPT/HCPCS: 72050; 72110; 99202

== ENCOUNTER 2024-08-05 08:53 | Outpatient (AMB) | payer OTHER, SELFPAY ==
--- NOTE | 2024-08-05 08:56 | MHC.OFFVIS ---
Vital Signs 08/05/24 09:12 Height 5 ft 3 in Weight 167 lb BMI 29.6 Intake Visit Reasons: Lumbar Radiculopathy Intake Note: Pain today 06/13 Activity Aide Required: Yes Activity Aide Language: Adobe Maker Name: Shannon #[id number] Accompanied by: Self / Same As Patient Allergies Sulfa (Sulfonamide Antibiotics) [SULFA (SULFONAMIDE ANTIBIOTICS)] Allergy (Intermediate, Verified 08/05/24 09:02) HIVES egg Allergy (Verified 08/05/24 09:02) Abdominal Pain strawberry Allergy (Verified 08/05/24 09:02) Abdominal Pain aspirin [ASPIRIN] Adverse Reaction (Intermediate, Verified 08/05/24 09:02) ABD PAIN morphine [MORPHINE] Adverse Reaction (Intermediate, Verified 08/05/24 09:02) Abdominal Pain almond Allergy (Severe, Uncoded 07/31/24 08:43) Stomack pain Lactose intollerance Allergy (Severe, Uncoded 07/31/24 08:43) Stomach pain, nausceau HPI HPI Lumbar Radiculopathy: Details: Patient is a 59 years old Czech speaking female with history of fibromyalgia, polyarthralgia, chronic pain syndrome, osteoporosis ([place], repeat bone scan 2024), thyroid cancer s/p thyroidectomy, Bipolar disorder, depression, presents today for initial evaluation of low back pain and widespread body pain due to fibromyalgia. 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 Denies any recent trauma, injury or falls. History of fall in June 2023 due to left knee pain related to instability. Patient was previously seen at [facility] and completed formal course of physical therapy and underwent multiple injections 2-3 years ago with mixed results. She was referred to our office by her PCP for lumbar radiculopathy and was ordered lumbar spine MRI which was denied by her insurance. Back pain is axial and radiates to upper and lower extremities per patient. She also reports chronic right upper back pain with shooting pain down into her lower back. Pain is present with activity and rest and flares up with any movement, stress or weather changes. Pain is constant and is rated at 10/10. Patient reports tramadol and gabapentin allow her to be less symptomatic and more functional. Reports previous courses of PT for shoulder and knee pain were ineffective but willing to undergo PT for back and neck pain. Denies any fever or chills, abdominal or groin pain, weakness, footdrop, bladder or bowel dysfunction or saddle anesthesia. Patient follows with Endocrinology and Rheumatology services. Location: Lower back, right upper back, widespread body pain Duration: Chronic pain for couple years Characteristics of symptom or complaint: Aching, numbness, tingling, spasming, shooting, tiring, radiating, heavy, Aggravating or associated factors: Prolonged walking or sitting, cold weather, movements, ADLs, stress Relieving factors: Tramadol, gabapentin, heat therapy, activity modifications, rest Treatment: PT, injections at [facility] Medical History Smoker Numbness Wheezing Chronic radicular pain of lower back Foot pain, bilateral Joint pain in both hands Breast pain Hypokalemia Breast pain, right Allergies Migraines Renal calculi Bipolar disorder Chronic abdominal pain Osteoporosis Hyperparathyroidism Multinodular thyroid Depression Fibromyalgia Thrombocytosis Leukocytosis GERD (gastroesophageal reflux disease) Thyroid cancer PONV (postoperative nausea and vomiting) Elevated cholesterol Difficulty swallowing Vitamin D deficiency Anxiety Pulmonary nodule Asthma HTN (hypertension) Surgical History H/O pyloroplasty (03/27/24) History of excision of mass Hx of thyroidectomy H/O esophagogastroduodenoscopy H/O colonoscopy History of bilateral oophorectomy Hx of cholecystectomy S/P excision of lipoma History of total abdominal hysterectomy Hx of appendectomy Family History Father Diabetes mellitus Skin cancer Prostate cancer Mother HTN (hypertension) High cholesterol Mental health disorder Maternal Grandfather Myocardial infarction Maternal Grandmother No problems noted. Paternal Grandfather No problems noted. Paternal Grandmother Breast cancer Sister Mental health disorder Social History Household Members: None Housing: Apartment Are you a primary palliative care specialist to a significant other at home: No Do you presently have visiting nurse or other home services: No Alcohol intake: never Patient Tobacco Use Status: Current everyday Tobacco user Tobacco use type: Cigarette Cigarettes Per Day: 5 Years Smoked: 20 e-Cigarette/Vaping Use: Never Used Second Hand Smoke Exposure: No Advance Directives Date on File: 10/05/16 service: No Current occupational status: disabled Sexual orientation: Straight/Heterosexual Gender identity: Female Cognitive needs: No Hearing needs: No Vision needs: No Review of Systems Const All systems reviewed & are unremarkable except as noted in HPI and below Physical Exam Vital Signs: BMI result Body Mass Index 29.6 General: Appears afebrile. Alert and oriented. Mood and affect appropriate. Follows and participates in conversation appropriately. Respiratory effort is unlabored. No cough. Able to transition from sit to stand unassisted. Ambulates with bilaterally normal heel strike and toe off. General: Yes no CVA tenderness Back/Spine/Pelvis Other: Limited lumbar ROM due to pain. Lumbar extension reproduces moderate pain. Flexion is intact and reproduces mild pain. Multiple widespread TTPs 16/16 bilaterally, including upper and lower extremities.?Demonstrates 5/5 strength of quadriceps bilaterally as well as flexion/dorsiflexion of bilateral feet against resistance. 2+ pedal pulses bilaterally. Straight leg rise with dorsiflexion negative bilaterally. +1 patellar and achilles reflexes bilaterally. Facet loading test positive bilaterally. Gabby sign, Herrera?s, [place], Pelvic compression and Stinchfield tests are positive bilaterally. No groin pain with I/E hip rotations. Valsalva maneuver negative. Back: no CVA tenderness and back tenderness Cervical Spine: loss of normal cervical lordosis, cervical muscular tenderness, No Cervical spine tenderness and No step off deformity Thoracic/Lumbar Spine: thoracic and lumbar spine normal to inspection, No Thoracic/lumbar spine scar(s), Lasegue's sign negative, straight leg raise negative bilaterally, pain with thoraco-lumbar ROM, paraspinal muscle tenderness, thoraco-lumbar ROM limited, No thoracic spinal tenderness and lumbar spinal tenderness at L4 and at L5 Pelvis: buttock tenderness bilaterally Sacroiliac joints: bilaterally tender to palpation Extrem General: Yes capillary refill normal, Yes no clubbing, cyanosis or edema and Yes no calf tenderness Assessment & Plan Assessment & Plan (1) Fibromyalgia: Code(s): M79.7 - Fibromyalgia Category: Medical (2) Osteoporosis: Code(s): M81.0 - Age-related osteoporosis without current pathological fracture Category: Medical (3) Cervicalgia: Code(s): M54.2 - Cervicalgia Category: Medical (4) Chronic radicular pain of lower back: Code(s): M54.16 - Radiculopathy, lumbar region; G89.29 - Other chronic pain Category: Medical (5) Lumbosacral spondylosis: Code(s): M47.817 - Spondylosis without myelopathy or radiculopathy, lumbosacral region Category: Medical Plan Recommend formal physical therapy for chronic low back pain and neck pain. Script provided today. Medical record release sent to [facility] for previous imaging and injections. Cervical and lumbar spine imaging to assess degree of degenerative changes, any subluxation, listhesis, compression fractures or pars defects. Discussed interventional treatments for current pain generators including diagnostic injections for potential peripheral nerve stimulation or RFA procedures. Giving [id number] osteoporosis and lumbar spine per bone scan 2021, patient is not candidate for therapeutic steroid injections at this time. Briefly discussed SCS trial versus implant. Informational brochures provided today. Continue regular daily physical activity, adequate hydration, avoid inflammatory or ultra processed foods, consider acupuncture, CBT therapy, and swimming for polyarthralgia and fibromyalgia. She is currently prescribed tramadol and gabapentin by Rheumatology and [facility] providers. All questions and concerns have been answered patient agreed with the treatment plan. Follow-up in 6-8 weeks to see response to physical therapy, if no response to physical therapy will consider further interventional strategy. Orders: Orders XR cervical spine 4V Today M54.2 - Cervicalgia, M79.7 - Fibromyalgia, M81.0 - Age-related osteoporosis without current pathological fracture XR lumbar spine 4V min Today G89.29 - Other chronic pain, M47.817 - Spondylosis without myelopathy or radiculopathy, lumbosacral region, M54.16 - Radiculopathy, lumbar region, M81.0 - Age-related osteoporosis without current pathological fracture PT Evaluation and Treatment Today G89.29 - Other chronic pain, M47.817 - Spondylosis without myelopathy or radiculopathy, lumbosacral region, M54.16 - Radiculopathy, lumbar region, M54.2 - Cervicalgia, M79.7 - Fibromyalgia, M81.0 - Age-related osteoporosis without current pathological fracture Coding Level of Care Code New Pt Level 4 (38412) Complex EM visit Add On G2211 Diagnoses Fibromyalgia M79.7 Osteoporosis M81.0 Cervicalgia M54.2 Chronic radicular pain of lower back M54.16; G89.29 Lumbosacral spondylosis M47.817
[2024-08-05 09:12] VITALS: BMI 29.6
== END 2024-08-05 09:46 | disposition home or self-care (01) ==
PROVIDERS: PCP Nurse Practitioner Family; Referring Provider Nurse Practitioner Family; Visit Provider Nurse Practitioner Family
DX: M79.7 Fibromyalgia (principal); M81.0 Age-related osteoporosis without current pathological fracture; M54.2 Cervicalgia; M54.16 Radiculopathy, lumbar region; G89.29 Other chronic pain; M47.817 Spondylosis without myelopathy or radiculopathy, lumbosacral region
CPT/HCPCS: 99204; G2211

== ENCOUNTER 2024-08-08 10:47 | Outpatient (REF) | payer OTHER, SELFPAY ==
[2024-08-08 11:17] LABS: Anion Gap 13 (12-20); Carbon Dioxide 23 mmol/L (22-29); Chloride 107 mmol/L (96-108); Potassium 4.1 mmol/L (3.3-5.1); Sodium 139 mmol/L (135-145)
== END 2024-08-08 10:48 | disposition home or self-care (01) ==
LOC: HO.LAB 10:47
PROVIDERS: PCP Nurse Practitioner Family; Visit Provider Internal Medicine Hypertension Specialist
DX: E87.6 Hypokalemia (principal)
CPT/HCPCS: 36415; 80051

== ENCOUNTER 2024-08-14 07:37 | Outpatient (AMB) | payer OTHER, SELFPAY ==
--- NOTE | 2024-08-14 07:28 | MHC.OFFVIS ---
Vital Signs 08/14/24 07:33 Height 5 ft 3 in Weight 167 lb BMI 29.6 Intake Visit Reasons: Follow Up Intake Note: Pt is experiencing itchiness all over her body, for 2 weeks now. Pt believes is do to her fibromyalgia. Front Sight Attacher Required: No Accompanied by: Self / Same As Patient Allergies Sulfa (Sulfonamide Antibiotics) [SULFA (SULFONAMIDE ANTIBIOTICS)] Allergy (Intermediate, Verified 08/14/24 07:30) HIVES egg Allergy (Verified 08/14/24 07:30) Abdominal Pain strawberry Allergy (Verified 08/14/24 07:30) Abdominal Pain aspirin [ASPIRIN] Adverse Reaction (Intermediate, Verified 08/14/24 07:30) ABD PAIN morphine [MORPHINE] Adverse Reaction (Intermediate, Verified 08/14/24 07:30) Abdominal Pain almond Allergy (Severe, Uncoded 07/31/24 08:43) Stomack pain Lactose intollerance Allergy (Severe, Uncoded 07/31/24 08:43) Stomach pain, nausceau Medication List - Last Reconciled 08/14/24 by BACILIO Lopez albuterol sulfate 2.5 mg (3 mL) inhalation DAILY PRN amitriptyline 50 mg (2 x 25 mg) PO BEDTIME 30 days amlodipine 10 mg PO DAILY azelastine 1 spray intranasal BID cane Quad cane cholecalciferol (vitamin D3) 25 mcg PO DAILY clonazepam 0.5 mg PO DAILY PRN clonazepam 1 mg PO BEDTIME PRN cyproheptadine 4 mg PO BEDTIME PRN 30 days diclofenac sodium 1% 2 grams topical BID PRN NS diclofenac sodium 50 mg PO BID PRN famotidine 40 mg PO BEDTIME fluvoxamine 100 mg PO BID gabapentin 800 mg PO TID galcanezumab-gnlm (Emgality Pen) 120 mg subcut Q30D hydrocortisone 2.5% 1 appl NC Q8-12H hydrocortisone acetate (Anusol-HC) 25 mg NC BID PRN loratadine 10 mg PO DAILY memantine 10 mg PO Q OTHER DAY mometasone-formoterol 200-5 mcg/actuation (Dulera) 2 puffs inhalation Q12H 30 days montelukast 10 mg PO BEDTIME multivitamin with folic acid 400 mcg (Daily-Laxmi (with folic acid)) 1 tab PO DAILY naloxone 4 mg/actuation (Narcan) 1 spray intranasal Q2M nicotine (Nicotrol) 10 mg inhalation Q2-4H PRN 30 days nicotine 1 patch transdermal DAILY 28 days omega-3 acid ethyl esters 1 cap PO BID 90 days omeprazole 40 mg PO DAILY ondansetron 8 mg PO Q8H PRN polyethylene glycol 3350 (Gavilax) 17 grams PO DAILY potassium chloride ER 10 mEq PO DAILY 30 days pravastatin 10 mg PO BEDTIME rizatriptan 10 mg PO DAILY PRN romosozumab-aqqg (Evenity) 210 mg subcut Q28D sennosides (Senna Laxative) 17.2 mg (2 x 8.6 mg) PO BEDTIME sertraline 50 mg PO DAILY Shower Chair As directed spironolactone 50 mg (2 x 25 mg) PO DAILY tizanidine 4 mg PO BID PRN tramadol 50 mg PO DAILY PRN 30 days HPI Comments Details: 58-yr-old female presents for f/u televisit for migraine. Patient visit conducted via telephone as patient was unable to access her utilize [employer] technology today. Pt states she has been having a total body itching (including inside her mouth and throat) w/o visible redness/lesions/swelling x's the last 9 days. She also has muscle cramps. She does have a history of low-norm vitamin B12 levels without known homocystine are MMA level, and a history of low vitamin C level. This is making her sleep difficulties much worse. She has had this before, and it has come and gone over time. She denies any recent new medication changes, changes in her personal care products, changes in her diet. She did start Vistaril, patient states this was a while ago. States she is compliant taking loratadine daily. She states she has low level headaches most days but no severe migraines, unless her Emgality is delivered to her late. Then, she will have daily severe migraine until she resumes her Emgality. Using as needed medication approx 6-7 days per month. The Ubrelvy helps better than the Rizatriptan- uses one or the other depending on severity. She states her tremor is stable, better since she stopped Vistaril. 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 She states her balance is poor, has difficulty standing for too long. She has had some falls. She does use a cane. FORMERLY [facility], [facility]1983 Medical History Smoker Numbness Wheezing Chronic radicular pain of lower back Foot pain, bilateral Joint pain in both hands Breast pain Hypokalemia Breast pain, right Allergies Migraines Renal calculi Bipolar disorder Chronic abdominal pain Osteoporosis Hyperparathyroidism Multinodular thyroid Depression Fibromyalgia Thrombocytosis Leukocytosis GERD (gastroesophageal reflux disease) Thyroid cancer PONV (postoperative nausea and vomiting) Elevated cholesterol Difficulty swallowing Vitamin D deficiency Anxiety Pulmonary nodule Asthma HTN (hypertension) Surgical History H/O pyloroplasty (03/27/24) History of excision of mass Hx of thyroidectomy H/O esophagogastroduodenoscopy H/O colonoscopy History of bilateral oophorectomy Hx of cholecystectomy S/P excision of lipoma History of total abdominal hysterectomy Hx of appendectomy Family History Father Diabetes mellitus Skin cancer Prostate cancer Mother HTN (hypertension) High cholesterol Mental health disorder Maternal Grandfather Myocardial infarction Maternal Grandmother No problems noted. Paternal Grandfather No problems noted. Paternal Grandmother Breast cancer Sister Mental health disorder Social History Household Members: None Housing: Apartment Are you a primary pharmacist critical care to a significant other at home: No Do you presently have visiting nurse or other home services: No Alcohol intake: never Patient Tobacco Use Status: Current everyday Tobacco user Tobacco use type: Cigarette Cigarettes Per Day: 5 Years Smoked: 20 e-Cigarette/Vaping Use: Never Used Second Hand Smoke Exposure: No Advance Directives Date on File: 10/05/16 service: No Current occupational status: disabled Sexual orientation: Straight/Heterosexual Gender identity: Female Cognitive needs: No Hearing needs: No Vision needs: No Physical Exam Vital Signs: BMI result Body Mass Index 29.6 Const General: cooperative, no acute distress and alert Orientation/consciousness: patient oriented x3 Resp Effort & Inspection: normal respiratory effort and able to speak in complete sentences Neuro General: patient oriented x3 Cognition (Neuro): normal cognition Psych Mental Status: mental status grossly normal Speech and movement: Clear speech present Affect: normal affect Attitude: cooperative Telehealth Telehealth Telehealth Platform: Halldis Location of provider rendering services: practice address Location of patient: address on file Patient Identification confirmed using: Name, : Yes Telehealth method: voice only Patient verbally consented to treatment: Yes Patient verbally consented to billing insurance company: Yes Patient informed of any privacy concerns related to visit: Yes Minutes spent on Phone/Video with Pt.: 30 Assessment & Plan Assessment & Plan (1) Migraines: Code(s): G43.909 - Migraine, unspecified, not intractable, without status migrainosus Category: Medical (2) Tremor: Code(s): R25.1 - Tremor, unspecified Category: Medical (3) Involuntary movements: Code(s): R25.9 - Unspecified abnormal involuntary movements Category: Medical Plan Per patient's request for increased ASPHALT SPREADER services: Patient advise that her PCP would need to request this through [facility]. For worsening sleep in setting of itching without rash and muscle cramps: Will recheck labs for common etiologies of paresthesias Trial cyproheptadine 4 mg q.h.s. p.r.n.- this may help headaches as well. Future considerations: Patient may benefit from seeing dermatology. For tremor- C-spine XR- Mild degenerative changes. Brain MRI w/wo- stable mild nonspecific white matter disease and prominent perivascular spaces in supratentorial compartment. No findings to explain pt's movement s/s. Tips given to break freezing episodes. On review, considerations: Consider trial of CD-LD, DaTscan, PT. ? For headache prevention: Continue riboflavin 200 mg b.i.d.. Continue magnesium 400-500 mg q.h.s., may hold for GI side effects. Continue Amitriptyline to 50mg qhs- for sleep as well- monitor mood. Continue Emgality 120mg sc q month. Previous migraine tx trials: Topiramate 25-50mg qhs- not effective after > 12 wks. ? For acute migraine treatment: Continue sumatriptan prn Continue Rizatripatn 5-10 mg for now- unfortunately not always effective. Continue Ubrogepant (Ubrelvy) 100mg tab, 1/2 - 1 tab (50-100mg) at onset of headache, may repeat in 2 hours. Max of 2 tabs (200mg) per 24 hours. May adjunct with Rizatriptan, or OTC Tylenol 650mg q 4 hours, Ibuprofen 600mg q 6 hours, or Naproxen 440mg q 12 hrs prn. May try taking Ubrelvy w/ Rizatriptan. May try taking Ubrelvy the week before next Emgality injection due. Previous migraine tx trials: Sumatriptan- ineffective. ? ? Will follow-up upon review of above and patient to follow-up in clinic in 6 months or sooner prn. Orders: Orders Vitamin B12 and Folate Today E54 - Ascorbic acid deficiency, L29.9 - Pruritus, unspecified, R25.1 - Tremor, unspecified, R25.2 - Cramp and spasm, R79.89 - Other specified abnormal findings of blood chemistry Vitamin C Today E54 - Ascorbic acid deficiency, L29.9 - Pruritus, unspecified, R25.1 - Tremor, unspecified, R25.2 - Cramp and spasm, R79.89 - Other specified abnormal findings of blood chemistry Erythrocyte Sedimentation Rate Today E54 - Ascorbic acid deficiency, L29.9 - Pruritus, unspecified, R25.1 - Tremor, unspecified, R25.2 - Cramp and spasm, R79.89 - Other specified abnormal findings of blood chemistry CRP High Sensitivity Today E54 - Ascorbic acid deficiency, L29.9 - Pruritus, unspecified, R25.1 - Tremor, unspecified, R25.2 - Cramp and spasm, R79.89 - Other specified abnormal findings of blood chemistry Complete Blood Count Auto Diff Today D72.829 - Elevated white blood cell count, unspecified, L29.9 - Pruritus, unspecified, R25.2 - Cramp and spasm Homocysteine Today E54 - Ascorbic acid deficiency, L29.9 - Pruritus, unspecified, R25.1 - Tremor, unspecified, R25.2 - Cramp and spasm, R79.89 - Other specified abnormal findings of blood chemistry Methylmalonic Acid Today E54 - Ascorbic acid deficiency, L29.9 - Pruritus, unspecified, R25.1 - Tremor, unspecified, R25.2 - Cramp and spasm, R79.89 - Other specified abnormal findings of blood chemistry Vitamin B6 Today E54 - Ascorbic acid deficiency, L29.9 - Pruritus, unspecified, R25.1 - Tremor, unspecified, R25.2 - Cramp and spasm, R79.89 - Other specified abnormal findings of blood chemistry Zinc Today E54 - Ascorbic acid deficiency, L29.9 - Pruritus, unspecified, R25.1 - Tremor, unspecified, R25.2 - Cramp and spasm, R79.89 - Other specified abnormal findings of blood chemistry Magnesium Today E54 - Ascorbic acid deficiency, L29.9 - Pruritus, unspecified, R25.1 - Tremor, unspecified, R25.2 - Cramp and spasm, R79.89 - Other specified abnormal findings of blood chemistry Creatine Kinase Total Today E54 - Ascorbic acid deficiency, L29.9 - Pruritus, unspecified, R25.1 - Tremor, unspecified, R25.2 - Cramp and spasm, R79.89 - Other specified abnormal findings of blood chemistry Medications: New cyproheptadine 4 mg PO BEDTIME 30 days PRN 30 tabs 1RF itching/pica Coding Level of Care Code Tele Est Pt Level 4 (56099) Complex EM visit Add On G2211 Diagnoses Migraines G43.909 Tremor R25.1 Involuntary movements R25.9
[2024-08-14 07:33] VITALS: BMI 29.6
== END 2024-08-14 15:36 | disposition home or self-care (01) ==
PROVIDERS: PCP Nurse Practitioner Family; Visit Provider Nurse Practitioner Family
DX: G43.909 Migraine, unspecified, not intractable, without status migrainosus (principal); R25.1 Tremor, unspecified; R25.9 Unspecified abnormal involuntary movements
CPT/HCPCS: 99214; G2211

== ENCOUNTER 2024-08-19 11:10 | Outpatient (REF) | payer OTHER, SELFPAY ==
[2024-08-19 11:37] LABS: MANUAL DIFF FLAG NO
[2024-08-19 11:53] LABS: Basophils Absolute Auto 0.1 X10*3/uL (0.0-0.2); Basophils Percent Auto 1.1 % (0-2); Eosinophils Absolute Auto 0.3 X10*3/uL (0.0-0.4); Eosinophils Percent Auto 2.5 % (0-4); Hematocrit 45.9 % (37.0-47.0); Hemoglobin 15.4 g/dl (12.0-16.0); Imm Gran Abs Auto 0.04 X10*3/uL (0.00-0.03); Imm Gran Pct Auto 0.3 % (0.0-0.4); Lymphocytes Absolute Auto 4.8 X10*3/uL (1.2-4.9); Lymphocytes Percent Auto 40.1 % (20-40); Mean Corpuscular HGB Conc 33.6 g/dl (31.0-35.0); Mean Corpuscular Hemoglobin 30.9 pg (27.0-33.0); Mean Platelet Volume 8.9 fL (9.4-12.3); Monocytes Absolute Auto 0.8 X10*3/uL (0.1-1.2); Monocytes Percent Auto 6.8 % (2-11); Neutrophils Absolute Auto 5.9 x10*3/uL (2.0-8.3); Neutrophils Percent Auto 49.2 % (45-73); Platelet Count 424 X10*3/uL (160-400); Red Blood Count 4.99 X10*6/uL (4.20-5.50); Red Cell Distribution Width 12.9 % (11.0-16.0)
[2024-08-19 12:28] LABS: Folate 15.9 ng/mL (> or = 4.0); Vitamin B12 368 pg/mL (200-900)
[2024-08-19 12:34] LABS: Erythrocyte Sedimentation Rate 5 MM/HR (0-20)
[2024-08-19 12:35] LABS: MANUAL DIFF FLAG NO
[2024-08-19 13:26] LABS: Basophils Absolute Auto 0.1 X10*3/uL (0.0-0.2); Eosinophils Absolute Auto 0.2 X10*3/uL (0.0-0.4); Eosinophils Percent Auto 1.7 % (0-4); Hematocrit 45.9 % (37.0-47.0); Hemoglobin 15.5 g/dl (12.0-16.0); Imm Gran Abs Auto 0.05 X10*3/uL (0.00-0.03); Imm Gran Pct Auto 0.4 % (0.0-0.4); Lymphocytes Absolute Auto 4.5 X10*3/uL (1.2-4.9); Lymphocytes Percent Auto 33.6 % (20-40); Mean Corpuscular HGB Conc 33.8 g/dl (31.0-35.0); Mean Corpuscular Hemoglobin 31.3 pg (27.0-33.0); Mean Corpuscular Volume 92.7 fL (80.0-98.0); Mean Platelet Volume 9.1 fL (9.4-12.3); Monocytes Absolute Auto 0.9 X10*3/uL (0.1-1.2); Neutrophils Absolute Auto 7.6 x10*3/uL (2.0-8.3); Neutrophils Percent Auto 56.3 % (45-73); Platelet Count 462 X10*3/uL (160-400); Red Blood Count 4.95 X10*6/uL (4.20-5.50); White Blood Count 13.4 X10*3/uL (4.8-10.8)
[2024-08-19 13:40] LABS: Appearance Urine Cloudy; Color Urine Dark Yellow; Glucose Urine UA Negative (Negative); Leukocyte Esterase Urine Negative (Negative); Nitrite Urine Negative (Negative); PH 5.5 (5.0-9.0); Urine Blood Negative (Negative); Urine Ketones Trace mg/dL (Negative); Urine Protein Trace mg/dL (Neg-Trace)
[2024-08-19 13:59] LABS: Alanine Aminotransferase 48 U/L (0-31); Albumin Level 4.8 g/dL (3.5-5.0); Alkaline Phosphatase 86 U/L (39-117); Anion Gap 14 (12-20); Aspartate Amino Transferase 36 U/L (5-31); Bilirubin Total 0.4 mg/dL (0.0-1.0); Blood Urea Nitrogen 10 mg/dL (9-16); C Reactive Protein 0.19 mg/dL (< or = 0.50); Calcium 9.4 mg/dL (8.4-10.2); Carbon Dioxide 22 mmol/L (22-29); Chloride 107 mmol/L (96-108); Estimated Glomerular Filt Rate > 60; Glucose Random 111 mg/dL (60-115); Potassium 3.5 mmol/L (3.3-5.1); Sodium 139 mmol/L (135-145); Total Protein 7.9 g/dL (6.5-8.0)
[2024-08-19 14:12] LABS: Ferritin 80 ng/mL (10-250)
[2024-08-20 17:03] LABS: Homocysteine 6.1 umol/L (<10.4)
[2024-08-22 14:28] LABS: Zinc 92 mcg/dL (60-130)
[2024-08-23 13:38] LABS: Vitamin C 0.6 mg/dL (0.3-2.7)
[2024-08-23 17:08] LABS: Methylmalonic Acid 105 nmol/L (55-335)
[2024-08-24 16:49] LABS: Vitamin B6 28.1 ng/mL (2.1-21.7)
[2024-08-24 20:53] LABS: CRP High Sensitivity 1.6 mg/L
== END 2024-08-19 11:11 | disposition home or self-care (01) ==
LOC: HO.LAB 11:10
PROVIDERS: Absent Provider Internal Medicine Gastroenterology; PCP Nurse Practitioner Family; Visit Provider Nurse Practitioner Family
DX: R10.9 Unspecified abdominal pain (principal); R25.1 Tremor, unspecified; L29.9 Pruritus, unspecified; E54 Ascorbic acid deficiency; R79.89 Other specified abnormal findings of blood chemistry; R25.2 Cramp and spasm; D72.829 Elevated white blood cell count, unspecified; K75.81 Nonalcoholic steatohepatitis (NASH); R30.0 Dysuria
CPT/HCPCS: 36415; 80053; 81003; 82180; 82550; 82607; 82728; 82746; 83090; 83735; 83921; 84207; 84630; 85025; 85652; 86140; 86141; 96372; 99212; J3111

== ENCOUNTER 2024-08-19 12:56 | Outpatient (AMB) | payer OTHER, SELFPAY ==
--- NOTE | 2024-08-19 13:35 | AM.OFFVISNUR ---
Intake Visit Reasons: Evenity Allergies Sulfa (Sulfonamide Antibiotics) [SULFA (SULFONAMIDE ANTIBIOTICS)] Allergy (Intermediate, Verified 08/19/24 11:41) HIVES egg Allergy (Verified 08/19/24 11:41) Abdominal Pain strawberry Allergy (Verified 08/19/24 11:41) Abdominal Pain aspirin [ASPIRIN] Adverse Reaction (Intermediate, Verified 08/19/24 11:41) ABD PAIN morphine [MORPHINE] Adverse Reaction (Intermediate, Verified 08/19/24 11:41) Abdominal Pain almond Allergy (Severe, Uncoded 07/31/24 08:43) Stomack pain Lactose intollerance Allergy (Severe, Uncoded 07/31/24 08:43) Stomach pain, nausceau Office Meds romosozumab-aqqg 210 mg/2.34 mL(105 mg/1.17 mL x2)subcutaneous syringe Performing Provider: Deuce Valdes MD Performing Location: [facility] [place] Endocrinology Administered by: Debby eTrrazas RN on 08/19/24 13:35 Dose Route Admin Location Dispensed Lot Number Expiration Date [employer] 210 mg subcut bilateral upper arms 2.34 mL [id number] 06/03/26 35960-365-76 AMGEN Comments: Visit interpreted by Satnam Xiao LMT, MA. Pt tolerated injection well. Given in bilateral arms again. Pt tolerated the injections in bilateral arms last time and denied any adverse reactions. Assessment & Plan Assessment & Plan Orders: Orders AMB Romosozumab Injection Patient Supplied Today M81.0 - Age-related osteoporosis without current pathological fracture Medications: New romosozumab-aqqg 210 mg (2.34 mL) subcut ONCE 2.34 mL 0RF M81.0 - Age-related osteoporosis without current pathological fracture
== END 2024-08-19 13:33 | disposition home or self-care (01) ==
PROVIDERS: PCP Nurse Practitioner Family
DX: M81.0 Age-related osteoporosis without current pathological fracture (principal)

== ENCOUNTER 2024-08-27 12:36 | Outpatient (AMB) | payer OTHER, SELFPAY ==
--- NOTE | 2024-08-27 12:52 | MHC.OFFVIS ---
Vital Signs 08/27/24 12:53 Height 5 ft 3 in Weight 174 lb 2.643 oz BMI 30.8 BP 130/76 Blood Pressure Location Lt brachial Position Sitting Pulse 79 Pulse Source Pulse Oximeter Pulse Oximetry (%) 98 Oxygen Delivery Method Room Air Intake Visit Reasons: FM/Plantar and palmar tenderness Intake Note: Patient last seen by Shayna Summers on 01/16/24. Presents today for FM/Plantar and Palmar follow up. Aircraft Powertrain Repairer Required: Yes Aircraft Powertrain Repairer Name: charles [id number] Allergies Sulfa (Sulfonamide Antibiotics) [SULFA (SULFONAMIDE ANTIBIOTICS)] Allergy (Intermediate, Verified 08/27/24 12:59) HIVES Latex, Natural Rubber Allergy (Mild, Verified 08/27/24 13:00) Rash egg Allergy (Verified 08/27/24 12:59) Abdominal Pain strawberry Allergy (Verified 08/27/24 12:59) Abdominal Pain aspirin [ASPIRIN] Adverse Reaction (Intermediate, Verified 08/27/24 12:59) ABD PAIN morphine [MORPHINE] Adverse Reaction (Intermediate, Verified 08/27/24 12:59) Abdominal Pain almond Allergy (Severe, Uncoded 08/27/24 12:59) Stomack pain Lactose intollerance Allergy (Severe, Uncoded 08/27/24 12:59) Stomach pain, nausceau Medication List - Last Reconciled 08/27/24 by Farrah Salas MD albuterol sulfate 2.5 mg (3 mL) inhalation DAILY PRN amitriptyline 50 mg (2 x 25 mg) PO BEDTIME 30 days amlodipine 10 mg PO DAILY azelastine 1 spray intranasal BID cane Quad cane cephalexin 500 mg PO Q8H cholecalciferol (vitamin D3) 25 mcg PO DAILY clonazepam 0.5 mg PO DAILY PRN clonazepam 1 mg PO BEDTIME PRN cyproheptadine 4 mg PO BEDTIME PRN 30 days diclofenac sodium 1% 2 grams topical BID PRN NS diclofenac sodium 50 mg PO BID PRN famotidine 40 mg PO BEDTIME fluvoxamine 100 mg PO BID gabapentin 800 mg PO TID galcanezumab-gnlm (Emgality Pen) 120 mg subcut Q30D hydrocortisone 2.5% 1 appl DE Q8-12H hydrocortisone acetate (Anusol-HC) 25 mg DE BID PRN hyoscyamine sulfate 0.125 mg PO BID-QID loratadine 10 mg PO DAILY memantine 10 mg PO Q OTHER DAY mometasone-formoterol 200-5 mcg/actuation (Dulera) 2 puffs inhalation Q12H 30 days montelukast 10 mg PO BEDTIME multivitamin with folic acid 400 mcg (Daily-Laxmi (with folic acid)) 1 tab PO DAILY naloxone 4 mg/actuation (Narcan) 1 spray intranasal Q2M nicotine (Nicotrol) 10 mg inhalation Q2-4H PRN 30 days nicotine 1 patch transdermal DAILY 28 days omega-3 acid ethyl esters 1 cap PO BID 90 days omeprazole 40 mg PO DAILY ondansetron 8 mg PO Q8H PRN polyethylene glycol 3350 (Gavilax) 17 grams PO DAILY potassium chloride ER 10 mEq PO DAILY 30 days pravastatin 10 mg PO BEDTIME rizatriptan 10 mg PO DAILY PRN romosozumab-aqqg (Evenity) 210 mg subcut Q28D sennosides (Senna Laxative) 17.2 mg (2 x 8.6 mg) PO BEDTIME sertraline 50 mg PO DAILY Shower Chair As directed spironolactone 50 mg (2 x 25 mg) PO DAILY tizanidine 4 mg PO BID PRN HPI Comments Details: This is a 59-year-old female with fibromyalgia who presents for follow-up. She states that she has diffuse pain everywhere. Her pains are getting worse. She is on gabapentin 800 mg t.i.d.. She also takes tramadol 1 tablet every other day. She states that tramadol does not provide much relief PFSH Medical History Low vitamin B12 level Smoker Numbness Wheezing Chronic radicular pain of lower back Foot pain, bilateral Joint pain in both hands Breast pain Hypokalemia Breast pain, right Allergies Migraines Renal calculi Bipolar disorder Chronic abdominal pain Osteoporosis Hyperparathyroidism Multinodular thyroid Depression Fibromyalgia Thrombocytosis Leukocytosis GERD (gastroesophageal reflux disease) Thyroid cancer PONV (postoperative nausea and vomiting) Elevated cholesterol Difficulty swallowing Vitamin D deficiency Anxiety Pulmonary nodule Asthma HTN (hypertension) Surgical History H/O pyloroplasty (03/27/24) History of excision of mass Hx of thyroidectomy H/O esophagogastroduodenoscopy H/O colonoscopy History of bilateral oophorectomy Hx of cholecystectomy S/P excision of lipoma History of total abdominal hysterectomy Hx of appendectomy Family History Father Diabetes mellitus Skin cancer Prostate cancer Mother HTN (hypertension) High cholesterol Mental health disorder Maternal Grandfather Myocardial infarction Maternal Grandmother No problems noted. Paternal Grandfather No problems noted. Paternal Grandmother Breast cancer Sister Mental health disorder Social History Household Members: None Housing: Apartment Are you a primary ostomy care nurse to a significant other at home: No Do you presently have visiting nurse or other home services: No Alcohol intake: never Patient Tobacco Use Status: Current everyday Tobacco user Tobacco use type: Cigarette Cigarettes Per Day: 5 Years Smoked: 20 e-Cigarette/Vaping Use: Never Used Second Hand Smoke Exposure: No Advance Directives Date on File: 10/05/16 service: No Current occupational status: disabled Sexual orientation: Straight/Heterosexual Gender identity: Female Cognitive needs: No Hearing needs: No Vision needs: No Female Reproductive History Menstrual Menopause type: surgical Total pregnancies: 0 Review of Systems Const Reports fatigue and Reports weakness Musc Reports back pain, Reports arthralgias and Denies joint swelling Neuro Reports weakness Endo Reports fatigue Physical Exam Vital Signs: Last Vital Signs Pulse 79 08/27/24 12:53 BP 130/76 08/27/24 12:53 Pulse Ox 98 08/27/24 12:53 Oxygen Delivery Method Room Air 08/27/24 12:53 BMI result Body Mass Index 30.8 Const General: cooperative, healthy appearing and comfortable Nutritional Appearance: obese Orientation/consciousness: patient oriented x3 Limitations: no limitations HEENT Head: Yes normocephalic and Yes atraumatic Resp Effort & Inspection: normal respiratory effort and able to speak in complete sentences Neuro General: patient oriented x3 Extrem Other: No active synovitis both hands Assessment & Plan Assessment & Plan (1) Whole body pain: Code(s): R52 - Pain, unspecified Category: Medical Plan: Discussed management of fibromyalgia with patient. Is a noninflammatory, non-autoimmune central afferent processing disorder leading to a diffuse pain syndrome. Patient states that she follows up regularly with psychiatrist and psychotherapist. Try to follow sleep hygiene practices. She mentions that she had a sleep study in the past and sleep apnea was not diagnosed. Patient would benefit from increased physical activity, either through formal physical therapy or by joining a gym. Advised patient that she should start activity slowly and increase as tolerated. Consider low-impact exercises such as swimming, aqua therapy stretching, yoga. Discontinue tramadol. It does not look like it helped patient much. She can continue with gabapentin Plan I spent 15 minutes reviewing patient's chart, evaluating patient, counseling patient and documenting in the chart Medications: Discontinued tramadol Discontinued Reason: Doctor's Order 50 mg PO DAILY PRN 15 tabs 2RF pain 30 days G89.29 - Other chronic pain, M54.16 - Radiculopathy, lumbar region, M79.671 - Pain in right foot, M79.672 - Pain in left foot, M79.7 - Fibromyalgia Coding Level of Care Code Est Pt Level 3 (18279) Diagnoses Whole body pain R52
[2024-08-27 12:53] VITALS: BP 130/76; PULSE 79; O2SAT 98; BMI 30.8
== END 2024-08-27 13:43 | disposition home or self-care (01) ==
PROVIDERS: PCP Nurse Practitioner Family; Visit Provider Student in an Organized Health Care Education/Training Program
DX: R52 Pain, unspecified (principal)
CPT/HCPCS: 99213

== ENCOUNTER → 2024-08-27 12:36 | Outpatient (BNVA) | payer OTHER, SELFPAY | PROVIDERS: PCP Nurse Practitioner Family; Visit Provider Student in an Organized Health Care Education/Training Program | DX: R52 Pain, unspecified (principal); M79.7 Fibromyalgia | CPT/HCPCS: 99212 ==

== ENCOUNTER 2024-09-17 13:33 | Outpatient (AMB) | payer OTHER, SELFPAY ==
--- NOTE | 2024-09-17 16:09 | AM.OFFVISNUR ---
Intake Visit Reasons: Evenity #7 Allergies Sulfa (Sulfonamide Antibiotics) [SULFA (SULFONAMIDE ANTIBIOTICS)] Allergy (Intermediate, Verified 08/27/24 12:59) HIVES Latex, Natural Rubber Allergy (Mild, Verified 08/27/24 13:00) Rash egg Allergy (Verified 08/27/24 12:59) Abdominal Pain strawberry Allergy (Verified 08/27/24 12:59) Abdominal Pain aspirin [ASPIRIN] Adverse Reaction (Intermediate, Verified 08/27/24 12:59) ABD PAIN morphine [MORPHINE] Adverse Reaction (Intermediate, Verified 08/27/24 12:59) Abdominal Pain almond Allergy (Severe, Uncoded 08/27/24 12:59) [place]omack pain Lactose intollerance Allergy (Severe, Uncoded 08/27/24 12:59) Stomach pain, [place] Office Meds romosozumab-aqqg 210 mg/2.34 mL(105 mg/1.17 mL x2)subcutaneous syringe Performing Provider: Deuce Valdes MD Performing Location: [facility] Endocrinology Administered by: Lucinda Schroeder RN on 09/17/24 16:09 Dose Route Admin Location Dispensed Lot Number Expiration Date [facility] [employer] 210 mg subcut bilateral upper arms 2.34 mL [id number] 12/02/26 85655-386-21 AMGEN Comments: Consent form signed. Patient denies any adverse reactions from previous dosing. Pt is aware of s/s to monitor for. Pt tolerated injections well. Assessment & Plan Assessment & Plan Orders: Orders AMB Romosozumab Injection Patient Supplied Today M81.0 - Age-related osteoporosis without current pathological fracture Medications: New romosozumab-aqqg 210 mg (2.34 mL) subcut ONCE 2.34 mL 0RF M81.0 - Age-related osteoporosis without current pathological fracture
== END 2024-09-17 14:04 | disposition home or self-care (01) ==
PROVIDERS: PCP Nurse Practitioner Family
DX: M81.0 Age-related osteoporosis without current pathological fracture (principal)

== ENCOUNTER → 2024-09-17 13:33 | Outpatient (BNVA) | payer OTHER, SELFPAY | PROVIDERS: PCP Nurse Practitioner Family | DX: M81.0 Age-related osteoporosis without current pathological fracture (principal) | CPT/HCPCS: 96372; J3111 ==

== ENCOUNTER 2024-09-25 13:08 | Outpatient (REF) | payer OTHER, SELFPAY ==
[2024-09-25 13:24] LABS: MANUAL DIFF FLAG NO
[2024-09-25 14:01] LABS: Basophils Absolute Auto 0.1 X10*3/uL (0.0-0.2); Eosinophils Absolute Auto 0.2 X10*3/uL (0.0-0.4); Eosinophils Percent Auto 1.6 % (0-4); Hematocrit 48.1 % (37.0-47.0); Hemoglobin 16.1 g/dl (12.0-16.0); Imm Gran Abs Auto 0.04 X10*3/uL (0.00-0.03); Imm Gran Pct Auto 0.4 % (0.0-0.4); Lymphocytes Absolute Auto 2.8 X10*3/uL (1.2-4.9); Lymphocytes Percent Auto 26.9 % (20-40); Mean Corpuscular HGB Conc 33.5 g/dl (31.0-35.0); Mean Corpuscular Hemoglobin 30.7 pg (27.0-33.0); Mean Corpuscular Volume 91.8 fL (80.0-98.0); Mean Platelet Volume 9.1 fL (9.4-12.3); Monocytes Absolute Auto 0.7 X10*3/uL (0.1-1.2); Monocytes Percent Auto 7.1 % (2-11); Neutrophils Absolute Auto 6.6 x10*3/uL (2.0-8.3); Platelet Count 414 X10*3/uL (160-400); Red Blood Count 5.24 X10*6/uL (4.20-5.50); White Blood Count 10.5 X10*3/uL (4.8-10.8)
[2024-09-25 14:28] LABS: Anion Gap 15 (12-20); Blood Urea Nitrogen 9 mg/dL (9-16); Calcium 9.5 mg/dL (8.4-10.2); Carbon Dioxide 21 mmol/L (22-29); Chloride 108 mmol/L (96-108); Estimated Glomerular Filt Rate > 60; Glucose Random 109 mg/dL (60-115); Sodium 140 mmol/L (135-145)
--- OUTSIDE RECORDS SUMMARY | 2024-09-25 15:05 | XMS_ITS | Clinical Summary ---
Author Organization [facility], Address [address] [place] [address] [place] [address] Phone Care Team Providers Care Water Resource Consultant Name Role Phone Raymundo Mcdonald NP Primary Care Provider [phone] Allergies Active Allergy Reactions Criticality Noted Date Comments Aspirin Anaphylaxis High 02/10/2023 Sulfa Antibiotics Anaphylaxis High 02/10/2023 Social History Tobacco Use Types Packs/Day Years Used Date Smoking Tobacco: Never Assessed Comments Unknown Sex and Gender Information Value Date Recorded Sex Assigned at Not on file Legal Sex Female 8:12 AM EST Gender Identity Not on file Sexual Orientation Not on file Plan of Treatment Health Maintenance Due Date Last Done Comments Breast Cancer Screening 1967 Hepatitis B Vaccine (1 of 3 - 19+ 3-dose series) 1986 Colorectal Cancer Screening: Annual FOBT 2016 Colorectal Cancer Screening: Colonoscopy 2016 Colorectal Cancer Screening: Sigmoidoscopy 2016 Influenza Vaccine (#1) 2024 Pneumococcal Vaccine: Pediat rics (0 to 5 Years) and At-Risk Patients (6 to 64 Years) Aged Out No longer eligible b ased on patient's age to complete this topic Insurance [employer] [employer] Care Teams Water Resource Consultant Relationship Specialty Start Date End Date Raymundo Mcdonald NP [facility] [place] [address] PCP - General Nurse Practitioner 10/10/23
--- OUTSIDE RECORDS SUMMARY | 2024-09-25 15:05 | XMS_ITS | Clinical Summary ---
Author Organization [facility] Address [address] [place] [address] Care Team Providers Care Surgical Appliance Fitter Name Role Phone Cr Madera MD Primary Care Provider [phone] Surgical History Surgery Date Site/Laterality Comments VENTRAL HERNIA REPAIR PROCEDURE: HISTORICAL VTRL WALL HERNIA RE APPENDECTOMY PROCEDURE: HISTORICAL APPENDECTOMY; COMMENT: w/ incisional hernia repair HYSTERECTOMY PROCEDURE: HISTORICAL TOTAL HYSTERECTOMY WITH BSO HERNIA REPAIR PROCEDURE: NE REPAIR FIRST ABDOMINAL WALL HERNIA Medical History Medical History Date Comments Hyperlipidemia 07/24/2017 DX:Hyperlipidemi a Asthma 08/06/2017 DX:Asthma Anxiety 09/29/2017 DX:Anxiety Depression 09/29/2017 DX:Depression History of incisional hernia repair 08/21/2017 DX:History of incisional hernia repair Kidney stones 09/29/2017 DX:Kidney stones Lung nodule 08/06/2017 DX:Lung nodule Tobacco use 12/11/2017 DX:Tobacco use Social History Tobacco Use Types Packs/Day Years Used Date Smoking Tobacco: Every Day Smokeless Tobacco: Never Alcohol Use Standard Drinks/Week Comments No 0 (1 standard drink = 0.6 oz pur e alcohol) Sex and Gender Information Value Date Recorded Sex Assigned at Not on file Gender Identity Not on file Sexual Orientation Not on file Obstetrics History Plan of Treatment Health Maintenance Due Date Last Done Comments Breast Cancer Screening 1967 Pneumococcal Vaccine: Pediat rics (0 to 5 Years) and At-Risk Patients (6 to 64 Years) (1 of 2 - PCV) 1973 DTaP,Tdap,and Td Vaccines (1 - Tdap) 1986 Hepatitis B Vaccines (1 of 3 - 19+ 3-dose series) 1986 Cervical Cancer Screening: P ap Smear 1988 Zoster Vaccines (1 of 2) 2017 Cholesterol Screening (Lipid Panel) 08/07/2022 Colorectal Cancer Screening: Colonoscopy 08/07/2022 Depression Screening 08/07/2022 HIV Screening 08/07/2022 Hepatitis C Screening 08/07/2022 Social Influencers of Health Screening 08/07/2022 COVID-19 Vaccine (1 - 2023-2 5 season) 2024 Influenza Vaccine (#1) 2024 HIB Vaccines Aged Out No longer eligi ble based on patient's age to complete this topic HPV Vaccines Aged Out No longer eligi ble based on patient's age to complete this topic Hepatitis A Vaccines Aged Out No long er eligible based on patient's age to complete this topic IPV Vaccines Aged Out No longer eligi ble based on patient's age to complete this topic MMR Vaccines Aged Out No longer eligi ble based on patient's age to complete this topic Meningococcal ACWY Vaccine Aged Out N o longer eligible based on patient's age to complete this topic RSV Immunization Patients Un lanre 20 months Aged Out No longer eligible b ased on patient's age to complete this topic Varicella Vaccines Aged Out No longer eligible based on patient's age to complete this topic Care Teams Surgical Appliance Fitter Relationship Specialty Start Date End Date Cr Madera MD [address] [place] [address] PCP - General Internal Medicine 07/05/17
--- OUTSIDE RECORDS SUMMARY | 2024-09-25 15:05 | XMS_ITS | Clinical Summary ---
Author Organization [facility] Address [address] [facility] [address] [place] [address] Care Team Providers Care Fur Sorter Name Role Phone Unavailable Primary Care Provider Unavailabl e Allergies Active Allergy Reactions Criticality Noted Date Comments Aspirin Anaphylaxis High 02/10/2023 Sulfa Antibiotics Anaphylaxis High 02/10/2023 Medications albuterol (2.5 MG/3ML) 0.083% nebulizer solution 3 Active alendronate (Fosamax) 70 MG tablet TAKE 1 TABLET ORALLY EVERY WEEK FOR 4 WEEKS 3 Active amitriptyline (Elavil) 25 MG tablet 3 Active amLODIPine (Norvasc) 5 MG tablet 3 Active Azelastine HCl 137 MCG/SPRAY solution 3 Active chlorthalidone (Hygroton) 25 MG tablet Take 25 mg by mouth in the morning. 3 Active cholecalciferol (Vitamin D3) 25 MCG (1000 UT) tablet Take by mouth in the morning. 3 Active cyclobenzaprine (Flexeril) 10 MG tablet TAKE 1 TABLET BY MOUTH BEDTIME NEEDED FOR MUSCLE SPASM 3 Active diclofenac (Voltaren) 50 MG EC tablet 3 Active famotidine (Pepcid) 40 MG tablet 3 Active Flovent HFA 110 MCG/ACT inhaler Inhale 1 puff 2 times daily. 3 Active fluvoxaMINE (Luvox) 100 MG tablet 3 Active gabapentin (Neurontin) 300 MG capsule 3 Active hydrOXYzine pamoate (Vistaril) 25 MG capsule TAKE 3 CAPSULE BY MOUTH THREE TIMES A DAY NEEDED 3 Active lansoprazole (Prevacid) [address] capsule 3 Active loratadine (Claritin) 10 MG tablet 3 Active montelukast (Singulair) 10 MG tablet 3 Active omega-3 acid ethyl esters (Lovaza) [address] 1 CAP ORALLY 2 TIMES A DAY FOR 90 DAYS 3 Active omeprazole (PriLOSEC) [address] capsule 3 Active ondansetron ODT (Zofran-ODT) 8 MG disintegrating tablet 3 Active GaviLAX 17 GM/SCOOP powder 3 Active potassium chloride ER (Micro-K) 10 MEQ ER capsule TAKE 4 CAPS (40 MEQ) BY MOUTH DAILY 3 Active prazosin (Minipress) 2 MG capsule TAKE 1 CAPSULE BY MOUTH EVERYDAY AT BEDTIME 3 Active rizatriptan (Maxalt) 10 MG tablet TAKE 5-10MG EVERY 2HRS NEEDED FOR MIGRAINE FOR 21 DAYS MAX 2 TABS PER DAY OR 4 TABS PER WEEK 3 Active Senna-Time 8.6 MG tablet 3 Active SUMAtriptan (Imitrex) 100 MG tablet PLEASE SEE ATTACHED FOR DETAILED DIRECTIONS 3 Active tiZANidine (Zanaflex) 4 MG tablet 3 Active topiramate (Topamax) 25 MG tablet 3 Active Active Problems No known active problems Social History Tobacco Use Types Packs/Day Years Used Date Smoking Tobacco: Every Day Cigarettes Smokeless Tobacco: Never Tobacco Cessation:Ready to Q uit: Not Asked Comments Unknown Sex and Gender Information Value Date Recorded Sex Assigned at Female 07/04/2022 10:24 AM EDT Legal Sex Female 10:24 AM EDT Gender Identity Female 01/19/2023 8:34 AM EDT Sexual Orientation Straight 01/19/2023 8: 34 AM EDT Plan of Treatment Upcoming Encounters Date Type Department Care Team (Late st Contact Info) Description 01/28/2025 1:00 PM EDT Office Visit [facility] OPTOMETRY [address] [place] [address] Pily Perkins, OD [address] [place] [address] Health Maintenance Due Date Last Done Comments CT Colonography 1967 Colonoscopy 1967 Colorectal Cancer Screening 1967 Depression Screening 1967 FIT DNA/Cologuard 1967 FIT 1967 FOBT 1967 HIV Screening 1967 SDOH Screening 1967 Sigmoidoscopy 1967 Alcohol/Substance Use Screening 1979 Hepatitis C Screening 1985 DTaP/Tdap/Td Vaccines (1 - Tdap) 1986 Hepatitis B Vaccines (1 of 3 - 19+ 3-dose series) 1986 Pap Smear 1988 Cervical Cancer Screening 1997 HPV/Cotest 1997 Mammogram 2007 Zoster Vaccines (1 of 2) 2017 Pneumococcal Vaccine: Pediatrics (0 to 5 Years) and At-Risk Patients (6 to 64 Years) (2 of 2 - PCV) 11/08/2022 11/08/2021 Tobacco Screening 02/11/2024 02/10/2023 COVID-19 Vaccine (3 - season) 2024 07/05/2021, 01/09/2021 Influenza Vaccine (#1) 2024 , 05/27/2021, 07/04/2019, Additional history exists RSV Patients and Patients Aged 60 years or older (1 - 1-dose 75+ series) 2042 HIB Vaccines Aged Out No longer eligi [...] patient's age to complete this topic Meningococcal Vaccine Aged Out No shreyas vik eligible based on patient's age to complete this topic RSV under 20 months Aged Out No longe r eligible based on patient's age to complete this topic Rotavirus Vaccines Aged Out No longer eligible based on patient's age to complete this topic Insurance [facility]
--- OUTSIDE RECORDS SUMMARY | 2024-09-25 15:05 | XMS_ITS | Encounter Summary ---
Author Organization [facility], Address [address] [place] [address] Phone Care Team Providers Care Manager Unit Name Role Phone Raymundo Mcdonald NP Primary Care Provider [phone] Encounter Details Date Type Department Care Team (Late st Contact Info) Description 10/10/2023 Documentation Only [facility], [address] [place] [address] [place], [place] [address] [place] [address] Social History Tobacco Use Types Packs/Day Years Used Date Smoking Tobacco: Never Assessed Comments Unknown Sex and Gender Information Value Date Recorded Sex Assigned at Not on file Legal Sex Female 8:12 AM EST Gender Identity Not on file Sexual Orientation Not on file documented as of this encounter Plan of Treatment Not on file documented as of this encounter Visit Diagnoses Not on filedocumented in this encounter Care Teams Manager Unit Relationship Specialty Start Date End Date Raymundo Mcdonald NP [address] [place] [id number] PCP - General Nurse Practitioner 10/10/23 documented as of this encounter
[2024-09-25 15:06] LABS: Folate 17.7 ng/mL (> or = 4.0); Vitamin B12 419 pg/mL (200-900)
[2024-09-26 16:03] LABS: Homocysteine 7.6 umol/L (<10.4)
[2024-09-29 01:03] LABS: Methylmalonic Acid 134 nmol/L (55-335)
[2024-10-01 14:45] LABS: Vitamin B6 16.7 ng/mL (2.1-21.7)
== END 2024-09-25 13:09 | disposition home or self-care (01) ==
LOC: HO.LAB 13:08
PROVIDERS: Visit Provider Nurse Practitioner Family
DX: R79.89 Other specified abnormal findings of blood chemistry (principal); E46 Unspecified protein-calorie malnutrition; D72.829 Elevated white blood cell count, unspecified; L29.9 Pruritus, unspecified; R25.2 Cramp and spasm
CPT/HCPCS: 36415; 80048; 82607; 82746; 83090; 83921; 84207; 85025

== ENCOUNTER 2024-09-25 13:24 | Outpatient (RCR) | payer OTHER, SELFPAY ==
--- NOTE | 2024-09-06 12:48 | MHC.PT.EP ---
[facility] [place] Office [place] Office [place] Office [address] Thuan Rice [address] [phone] F: [phone] F: [phone] F: [phone] F: [phone] Physical Therapy Plan of Care Date of Evaluation: 09/06/24 Date of Surgery: Diagnosis: CHRONIC RADICULAR LBP WITH AGE RELATED OSTEOPOROSIS W/O CURRENT PATHOLOGICAL FX; FIBROMYALGIA, LUMBOSACRAL SPONDYLOSIS Assessment: 59 YO FEMALE REF TO PT FOR CHRONIC RADICULAR LBP WITH AGE RELATED OSTEOPOROSIS W/O CURRENT PATHOLOGICAL FX; FIBROMYALGIA, LUMBOSACRAL SPONDYLOSIS-> LONG, PROGRESSIVE HISTORY. 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 SHE HAS A H/O MULTIPLE ABDOMINAL SURG INCLUDING ROBERT/ OOPHORECTOMY DUE TO PRE-CANCER. SUBJECTIVE PAIN AT 910 AND SHE HAS A VERY SEDENTARY LIFESTYLE PER Pt DUE TO HER PAIN. OBJECTIVELY, DECR POSTURE/ BODY MECH, WEAK ABDOMINAL/ GLUTE MM, (+) SCOLIOSIS, MILD PELVIC ASYM, GUARDED TRUNK AROM , DECR Lt > Rt HIP FLEXIB, AND MULTIPLE AREAS OF BODY PAIN. SHE WOULD BENEFIT FROM PT TO ADDRESS THE ABOVE FINDINGS, DEV A HEP, AND GUIDE THE Pt ON REGAINING SOME FUNCTIONAL INDEPENDENCE/ PAIN MANAGEMENT TECHN. Frequency and Duration: The patient will be seen 2 x WK x 5 WKS Short Term Goals: Pt DEMON IMPROVED CORE ENGAGEMENT , DIAPHRAGMATIC BREATHING DECR BACK PAIN TO 3-4/10 INITIATE HEP-> HS FLEXIB, CORE ENGAGEMENT Pt DEMON MORE EFFICIENT SQUAT MECH AND INDEP IN/OOB TECHN Brake Repairer Hydraulic Goals: *Pt WILL IMPROVE LUMBOPELVIC/ LEs STRENGTH AND STAB *Pt INDEP W PROGR HEP AND SELF-SX MGMT TECHN *Pt RESUME REG ADLs / INITIATE FITNESS WALKING, EVIDENT W IMPROVED LEFI SCORE (AT EVAL ) Treatment Plan: Modalities to reduce pain, spasms and effusion. Manual therapy to restore motion and function. Therapeutic exercise to improve strength and flexibility. Neuromuscular re-education for posture and balance. Therapeutic activities to return to functional activities of daily living. Electronically signed by: REJI PETERSON,PT Please sign and return to therapist. Thank you for your referral.
--- NOTE | 2024-12-09 14:32 | MHC.PT.DC ---
[facility] [place] Office [place] Office [place] Office [address] Thuan Rice [address] [facility] [phone] F: [phone] F: [phone] F: [phone] F: [phone] Physical Therapy Discharge Report Diagnosis: CHRONIC RADICULAR LBP WITH AGE RELATED OSTEOPOROSIS W/O CURRENT PATHOLOGICAL FX; FIBROMYALGIA, LUMBOSACRAL SPONDYLOSIS Date of Surgery: Date of Evaluation: 09/06/24 Date of Discharge: 12/09/24 Treatments to Date: 4 Cancellations to Date: 3 No Shows to Date: 1 Discharge Status: Patient Elected to Stop Visit Non-compliance Discharge Summary: IRIS IS D/C FROM PT AT THIS TIME PER THE DEPT ATTENDANCE POLICY.. SHE DID NOT MEET HER PT GOALS. Electronically signed by: REJI PETERSON, PT Please sign and return to therapist. Thank you for your referral.
== END 2024-12-09 14:34 | disposition home or self-care (01) ==
LOC: HO.PT 13:24
PROVIDERS: PCP Nurse Practitioner Family; Visit Provider Nurse Practitioner Family
DX: M54.16 Radiculopathy, lumbar region (principal); G89.29 Other chronic pain; M81.0 Age-related osteoporosis without current pathological fracture; M79.7 Fibromyalgia; M47.817 Spondylosis without myelopathy or radiculopathy, lumbosacral region
CPT/HCPCS: 97110; 97140; 97162; 97530

== ENCOUNTER 2024-10-22 08:27 | Outpatient (AMB) | payer OTHER, SELFPAY ==
--- OUTSIDE RECORDS SUMMARY | 2024-10-22 08:47 | XMS_ITS | Clinical Summary ---
Author Organization [facility], Address [address] [place] [address] [place] [address] Phone Care Team Providers Care Senior Quality Methods Specialist Name Role Phone Raymundo Mcdonald NP Primary Care Provider [phone] Allergies Active Allergy Reactions Criticality Noted Date [...] patient's age to complete this topic Insurance [facility] MEDICAID Care Teams Senior Quality Methods Specialist Relationship Specialty Start Date End Date Raymundo Mcdonald NP [facility] [place] [address] PCP - General Nurse Practitioner 10/10/23
--- OUTSIDE RECORDS SUMMARY | 2024-10-22 08:47 | XMS_ITS | Clinical Summary ---
Author Organization [facility] Address [address] [facility] [address] [place] [address] Care Team Providers Care Children'S Ministry Director Name Role Phone Unavailable Primary Care Provider [...] Upcoming Encounters Date Type Department Care Team ([facility] st Contact Info) Description 10/30/2024 3:45 PM EST Office Visit [facility] OPTOMETRY [address] [place] [address] Debby Escamilla OD [address] [place] [address] 01/28/2025 1:00 PM EDT Office Visit [facility] OPTOMETRY [address] [place] [address] Pily Perkins, OD [address] [place] [address] Health Maintenance Due Date Last Done Comments [...] Cancer Screening 1997 HPV/Cotest 1997 Mammogram 2007 Tobacco Screening 02/11/2024 02/10/2023 COVID-19 Vaccine ( - season) 2024 07/05/2021, 01/09/2021 Zoster Vaccines (2 of 2) 09/25/2024 07/31/2024 RSV Patients and Patients Aged 60 years or older (1 - 1-dose 75+ series) 2042 Influenza Vaccine Completed 07/31/2024, , 05/27/2021, Additional history exists Pneumococcal Vaccine: 50+ Years Completed 07/31/2024, 11/08/2021 HIB Vaccines Aged Out No longer eligi [...] patient's age to complete this topic Insurance [facility] [address] [place] [id number] [place] [id number] [place] [phone]
--- OUTSIDE RECORDS SUMMARY | 2024-10-22 08:47 | XMS_ITS | Encounter Summary ---
Author Organization [facility], Address [address] [place] [address] Phone Care Team Providers Care Wax Pourer Name Role Phone Raymundo Mcdonald NP Primary Care Provider [phone] Encounter Details Date Type Department Care Team (Late st Contact Info) Description 10/10/2023 Documentation Only [facility], [address] [place] [address] [place], [place] [address] [place] [address] Social History Tobacco Use Types [...] on filedocumented in this encounter Care Teams Wax Pourer Relationship Specialty Start Date End Date Raymundo Mcdonald NP [address] [place] [phone] PCP - General Nurse Practitioner 10/10/23 documented as of this encounter
--- OUTSIDE RECORDS SUMMARY | 2024-10-22 08:47 | XMS_ITS | Clinical Summary ---
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 Name Role Phone Cr Madera MD Primary Care Provider [phone] Surgical History Surgery Date Site/Laterality Comments VENTRAL HERNIA REPAIR PROCEDURE: HISTORICAL VTRL WALL HERNIA RE APPENDECTOMY PROCEDURE: HISTORICAL APPENDECTOMY; COMMENT: w/ incisional hernia repair HYSTERECTOMY PROCEDURE: HISTORICAL TOTAL HYSTERECTOMY WITH BSO HERNIA REPAIR PROCEDURE: [place] REPAIR FIRST ABDOMINAL WALL HERNIA Medical History [...] drink = 0.6 oz pur e alcohol) Comments Unknown Sex and Gender Information Value Date Recorded Sex Assigned at Not on file Legal Sex Female 11:25 PM EST Gender Identity Not on file Sexual Orientation Not on file Obstetrics History Plan of Treatment Health Maintenance Due Date Last Done Comments Breast Cancer Screening 1967 DTaP,Tdap,and Td Vaccines (1 - Tdap) 1986 Hepatitis B Vaccines (1 of 3 - 19+ 3-dose series) 1986 Pneumococcal Vaccine: 50+ Ye ars (1 of 2 - PCV) 1986 Pneumococcal Vaccine: Pediat rics (0 to 5 Years) and At-Risk Patients (6 to 64 Years) (1 of 2 - PCV) 1986 Cervical Cancer Screening: P ap Smear 1988 Zoster Vaccines (1 of 2) 2017 Cholesterol Screening (Lipid Panel) 08/07/2022 Colorectal Cancer Screening: Colonoscopy 08/07/2022 Depression Screening 08/07/2022 HIV Screening 08/07/2022 Hepatitis C Screening 08/07/2022 Social Influencers of Health Screening 08/07/2022 COVID-19 Vaccine (2023-2 5 season) 2024 Influenza Vaccine (#1) 2024 [...] patient's age to complete this topic Meningococcal B Vacine Aged Out No lo nger eligible based on patient's age to complete this topic RSV Immunization Patients Un lanre 20 months Aged Out No longer eligible b ased on patient's age to complete this topic Varicella Vaccines Aged Out No longer eligible based on patient's age to complete this topic Care Teams Nuisance Wildlife Trapper Relationship Specialty Start Date End Date Cr Madera MD [address] [place] [address] PCP - General Internal Medicine 07/05/17
--- NOTE | 2024-10-22 09:01 | MHC.OFFVIS ---
Vital Signs 10/22/24 09:04 Height 5 ft 3.49 in Weight 165 lb 2.526 oz BMI 28.8 BP 136/86 Blood Pressure Location Lt brachial Position Sitting Pulse 111 H Pulse Source Pulse Oximeter Pulse Oximetry (%) 98 Oxygen Delivery Method Room Air Intake Visit Reasons: f/u osteoporosis Intake Note: Patient present today for Osteoporosis follow up visit. Junk Removal Specialist Required: Yes Junk Removal Specialist Language: Project Controls Scheduler Services: Junk Removal Specialist Present Junk Removal Specialist Name: Althea Information Interpreted: non-clinical & clinical Accompanied by: Self / Same As Patient Allergies Sulfa (Sulfonamide Antibiotics) [SULFA (SULFONAMIDE ANTIBIOTICS)] Allergy (Intermediate, Verified 10/22/24 09:06) HIVES Latex, Natural Rubber Allergy (Mild, Verified 10/22/24 09:06) Rash egg Allergy (Verified 10/22/24 09:06) Abdominal Pain strawberry Allergy (Verified 10/22/24 09:06) Abdominal Pain aspirin [ASPIRIN] Adverse Reaction (Intermediate, Verified 10/22/24 09:06) ABD PAIN morphine [MORPHINE] Adverse Reaction (Intermediate, Verified 10/22/24 09:06) Abdominal Pain almond Allergy (Severe, Uncoded 10/22/24 09:06) Stomack pain Lactose intollerance Allergy (Severe, Uncoded 10/22/24 09:06) Stomach pain, nausceau Medication List - Last Reconciled 10/22/24 by Deuce Valdes MD albuterol sulfate 2.5 mg (3 mL) inhalation DAILY PRN amitriptyline 50 mg (2 x 25 mg) PO BEDTIME 30 days amlodipine 10 mg PO DAILY azelastine 1 spray intranasal BID cane Quad cane cephalexin 500 mg PO Q8H cholecalciferol (vitamin D3) 25 mcg PO DAILY clonazepam 0.5 mg PO DAILY PRN clonazepam 1 mg PO BEDTIME PRN cyproheptadine 4 mg PO BEDTIME PRN 30 days diclofenac sodium 1% 2 grams topical BID PRN NS diclofenac sodium 50 mg PO BID PRN famotidine 40 mg PO BEDTIME fluvoxamine 100 mg PO BID gabapentin 800 mg PO TID galcanezumab-gnlm (Emgality Pen) 120 mg subcut Q30D hydrocortisone 2.5% 1 appl WV Q8-12H hydrocortisone acetate (Anusol-HC) 25 mg WV BID PRN hyoscyamine sulfate 0.125 mg PO BID-QID loratadine 10 mg PO DAILY memantine 10 mg PO Q OTHER DAY mometasone-formoterol 200-5 mcg/actuation (Dulera) 2 puffs inhalation Q12H 30 days montelukast 10 mg PO BEDTIME multivitamin with folic acid 400 mcg (Daily-Laxmi (with folic acid)) 1 tab PO DAILY naloxone 4 mg/actuation (Narcan) 1 spray intranasal Q2M nicotine (Nicotrol) 10 mg inhalation Q2-4H PRN 30 days nicotine 1 patch transdermal DAILY 28 days omega-3 acid ethyl esters 1 cap PO BID 90 days omeprazole 40 mg PO DAILY ondansetron 8 mg PO Q8H PRN polyethylene glycol 3350 (Gavilax) 17 grams PO DAILY potassium chloride ER 10 mEq PO DAILY 30 days pravastatin 10 mg PO BEDTIME rizatriptan 10 mg PO DAILY PRN romosozumab-aqqg (Evenity) 210 mg subcut Q28D sennosides (Senna Laxative) 17.2 mg (2 x 8.6 mg) PO BEDTIME sertraline 50 mg PO DAILY Shower Chair As directed spironolactone 25 mg PO DAILY tizanidine 4 mg PO BID PRN HPI Comments Details: 59 year-old female with past medical history nontoxic multinodular goiter who is seen in follow-up today for papillary thyroid microcarcinoma and hyperparathyroidism. The patient was seen initially by for 3.2 cm left-sided thyroid lobe nodule and underwent FNA with benign cytology. She complained of compressive symptoms in this was referred to Dr. Hennessy for surgical thyroidectomy. She also was found to have laboratory evidence of primary hyperparathyroidism. She underwent left hemithyroidectomy with bilateral inferior parathyroidectomy on 01/15/2019. Her thyroid surgical pathology revealed papillary microcarcinoma of the thyroid, 0.4 cm, unifocal, no angio invasion or lymphatic invasion, no extrathyroidal extension. PT1a pNX. No additional treatment was recommended. Surgical pathology from her parathyroid glands revealed a right inferior parathyroid to have normocellular pathology, and the left inferior parathyroid gland to be hypercellular. The right inferior parathyroid weight 200 mg with the left inferior parathyroid weighing 160 mg. Immediate postoperative PTH was 23. No intraoperative PTH was assessed. She did initially request completion thyroidectomy, but after consultation with Dr. Hennessy she has decided against this and wishes to instead proceed with yearly surveillance of her R sided thyroid nodules. She continued to complain of symptoms of body aches and abdominal pain. She was also complaining of the sensation of swelling in her neck. Labs were repeated and were largely unchanged. Calcium remained high normal. It was thought that when corrected for Albumin her Calcium was WNL. 24 hour urine calcium was WNL. Her thyroid US revealed interval growth of a nodule on in the R lobe, and a newly identified complex cystic subcentimeter nodule within the R lobe. She underwent FNA biopsy of this R sided nodule 04/23/2020 with benign cytology. Recent labs reveal hypokalemia and elevated LFTs. Her Atorvastatin was stopped by her PCP, and she was started on Potassium supplements. She was worked up for hyperaldosteronism, and labs were not consistent with this with an elevated renin level. She had a repeat DEXA which shows worsening in the spine, but stability in hip and distal forearm. Thyroid US: 05/27/2021 Right Thyroid Lobe: 5.5 x 2.2 x 2.4 cm, volume 15.2 mL. Previously 5.5 x 2.2 x 2.4 cm, volume 15.2 mL. Parenchyma: The gland echotexture is homogeneous. Thyroid vascularity is increased. Left Thyroid Lobe: Surgically absent. Isthmus: 0.3 cm in maximum AP dimension. Previously 0.2 cm. Estimated total number of nodules greater than or equal to 1 cm: 0. 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 Location: Right mid lateral. ?? ? Size: 0.9 x 0.5 x 0.7 cm, volume 0.16 mL. ?? ? Previously: 1.0 x 0.7 x 0.6 cm, volume 0.22 mL. ?? ? Nodule characteristics: ?? ? Composition: Solid (2). ?? ? Echogenicity: Hypoechoic (2). ?? ? Shape: Not taller than wide (0). ?? ? Margins: Smooth (0). ?? ? Echogenic Foci: None (0). ? ACR TI-RADS total points: 4 ?? ? ACR TI-RADS category: 4 ? Significant change in size (>/= 20% in 2 dimensions and minimal increase of 2 mm or 50% or greater increase in volume): No ?? ? Change in features: No ?? ? Change in ACR TI-RADS risk category: No 2.? Location: Right inferior. ?? ? Size: 0.4 x 0.4 x 0.5 cm, volume 0.04 mL. ?? ? Previously: New since the prior study. ?? ? Nodule characteristics: ?? ? Composition: Cystic(0). ?? ? ACR TI-RADS total points: 0 ?? ? ACR TI-RADS category: 1 ?? ? 3.? Location: Right inferior. ?? ? Size: 0.5 x 0.3 x 0.3 cm, volume 0.02 mL. ?? ? Previously: 0.3 x 0.3 x 0.4 cm, volume 0.02 mL. ?? ? Nodule characteristics: ?? ? Composition: Cystic(0). ?? ? ACR TI-RADS total points: 0 ?? ? ACR TI-RADS category: 1 ? Significant change in size (>/= 20% in 2 dimensions and minimal increase of 2 mm or 50% or greater increase in volume): ?? ? Change in features: ?? ? Change in ACR TI-RADS risk category: NODES: No lymphadenopathy is seen in the tissue surrounding the thyroid gland. DEXA: 08/19/2021 FINDINGS: AP SPINE L1-L4: Current: BMD 0.801 g/cm2, Z-score -2.6, T-score -3.2, osteoporosis, 6.5% decrease from baseline (<5% change is not significant). Baseline: BMD 0.857 g/cm2. LEFT FEMUR, NECK: Current: BMD 0.821 g/cm2, Z-score -0.7, T-score -1.6, osteopenia. Baseline: BMD 0.845 g/cm2. LEFT FEMUR, TOTAL: Current: BMD 0.911 g/cm2, Z-score -0.3, T-score -0.8, normal, 0.0% no change from baseline (<5% change is not significant). Baseline: BMD 0.911 g/cm2. LEFT FOREARM RADIUS 33%: BMD 0.721 g/cm2, Z-score -1.4, T-score -1.8, osteopenia, 0.8% decrease from baseline (<5% change is not significant). Baseline: BMD 0.727 g/cm2. Labs: On Evenity since 02/2024 . c/o injection site reaction in abd . Has never taken injection in shoulder . Has fibromyalgia . No fx since last visit . Having back pain . X Ray did not show fx but having MRI of spine done . Having intermittent episodes of vomiting unrelated to Evenity injections [facility] Medical History (Updated 09/17/24 @ 17:35 by BACILIO Lopez) Low vitamin B12 level Smoker Numbness Wheezing Chronic radicular pain of lower back Foot pain, bilateral Joint pain in both hands Breast pain Hypokalemia Breast pain, right Allergies Migraines Renal calculi Bipolar disorder Chronic abdominal pain Osteoporosis Hyperparathyroidism Multinodular thyroid Depression Fibromyalgia Thrombocytosis Leukocytosis GERD (gastroesophageal reflux disease) Thyroid cancer PONV (postoperative nausea and vomiting) Elevated cholesterol Difficulty swallowing Vitamin D deficiency Anxiety Pulmonary nodule Asthma HTN (hypertension) Surgical History H/O pyloroplasty (03/27/24) History of excision of mass Hx of thyroidectomy H/O esophagogastroduodenoscopy H/O colonoscopy History of bilateral oophorectomy Hx of cholecystectomy S/P excision of lipoma History of total abdominal hysterectomy Hx of appendectomy Family History Father Diabetes mellitus Skin cancer Prostate cancer Mother HTN (hypertension) High cholesterol Mental health disorder Maternal Grandfather Myocardial infarction Maternal Grandmother No problems noted. Paternal Grandfather No problems noted. Paternal Grandmother Breast cancer Sister Mental health disorder Social History Household Members: None Housing: Apartment Are you a primary grounds caretaker to a significant other at home: No Do you presently have visiting nurse or other home services: No Alcohol intake: never Patient Tobacco Use Status: Current everyday Tobacco user Tobacco use type: Cigarette Cigarettes Per Day: 5 Years Smoked: 20 e-Cigarette/Vaping Use: Never Used Second Hand Smoke Exposure: No Advance Directives Date on File: 10/05/16 service: No Current occupational status: disabled Sexual orientation: Straight/Heterosexual Gender identity: Female Cognitive needs: No Hearing needs: No Vision needs: No Physical Exam Vital Signs: Last Vital Signs Pulse 111 H 10/22/24 09:04 BP 136/86 10/22/24 09:04 Pulse Ox 98 10/22/24 09:04 Oxygen Delivery Method Room Air 10/22/24 09:04 BMI result Body Mass Index 28.8 Assessment & Plan Assessment & Plan (1) Osteoporosis: Code(s): M81.0 - Age-related osteoporosis without current pathological fracture Category: Medical Plan: Status post parathyroidectomy with DEXA bone density 2 years ago showing significant osteoporosis in the spine. Secondary workup was otherwise negative. Repeat DEXA shows ovprafip-au-[id number] osteoporosis of lumbar spine Plan is to continue the Evenity for 1 year's time up to 02/2025 and then will transition to anti resorptive therapy. Would transition to Prolia considering very low bone density and spine in 02/2025. The patient is not due for another bone density 10/2025. She was told to f/u with GI and surgery regarding the abdominal pain , nausea and vomiting Coding Level of Care Code Est Pt Level 3 (68113) Diagnoses Osteoporosis M81.0
[2024-10-22 09:04] VITALS: BP 136/86; PULSE 111; O2SAT 98; BMI 28.8
== END 2024-10-22 09:42 | disposition home or self-care (01) ==
PROVIDERS: PCP Nurse Practitioner Family; Visit Provider Internal Medicine Endocrinology, Diabetes & Metabolism
DX: M81.0 Age-related osteoporosis without current pathological fracture (principal)
CPT/HCPCS: 99213

== ENCOUNTER → 2024-10-22 08:27 | Outpatient (BNVA) | payer OTHER, SELFPAY | PROVIDERS: PCP Nurse Practitioner Family; Visit Provider Internal Medicine Endocrinology, Diabetes & Metabolism | DX: M81.0 Age-related osteoporosis without current pathological fracture (principal) | CPT/HCPCS: 96372; 99212; J3111 ==

== ENCOUNTER 2024-10-25 13:28 | Outpatient (AMB) | payer OTHER, SELFPAY ==
--- NOTE | 2024-10-25 13:37 | A.OFFVIS_ITS ---
Vital Signs 10/25/24 13:41 Height 5 ft 3 in Weight 165 lb BMI 29.2 BP 118/58 L Blood Pressure Location Rt brachial Position Sitting Pulse 103 H Pulse Source Pulse Oximeter Pulse Oximetry (%) 100 Oxygen Delivery Method Room Air Intake Visit Reasons: Follow Up/doug from 10/31 Intake Note: Pain today 06/13 Transportation Maintenance Specialist Required: Yes Transportation Maintenance Specialist Language: Film Projector Operator Name: Shannon Accompanied by: Self / Same As Patient Allergies Sulfa (Sulfonamide Antibiotics) [SULFA (SULFONAMIDE ANTIBIOTICS)] Allergy (Intermediate, Verified 10/22/24 09:06) HIVES Latex, Natural Rubber Allergy (Mild, Verified 10/22/24 09:06) Rash egg Allergy (Verified 10/22/24 09:06) Abdominal Pain strawberry Allergy (Verified 10/22/24 09:06) Abdominal Pain aspirin [ASPIRIN] Adverse Reaction (Intermediate, Verified 10/22/24 09:06) ABD PAIN morphine [MORPHINE] Adverse Reaction (Intermediate, Verified 10/22/24 09:06) Abdominal Pain almond Allergy (Severe, Uncoded 10/22/24 09:06) Stomack pain Lactose intollerance Allergy (Severe, Uncoded 10/22/24 09:06) Stomach pain, nausceau HPI Comments Details: Patient presents today for follow up after physical therapy. Patient reports she was able to complete 4 weeks of PT without significant improvement in her functioning, mobility, or sleep. She continues to endorse neck, mid and lower back pain with radiation into her buttocks and lateral hips. She ambulates with cane. Recent cervical and lumbar spine imaging are noted below. Patient is interested to proceed with diagnostic sacroiliac joint injections as initial steps. Denies any recent cough, cold, infection, fever or any significant changes in medical history since last office visit. PRIOR: Patient is a 59 years old Brazilian speaking female with history of fibromyalgia, polyarthralgia, chronic pain syndrome, osteoporosis (Evenity, repeat bone scan 2024), thyroid cancer s/p thyroidectomy, Bipolar disorder, depression, presents today for initial evaluation of low back pain and widespread body pain due to fibromyalgia. lean sensei it was incorporated during today's visit. Denies any recent trauma, injury or falls. History of fall in June 2023 due to left knee pain related to instability. Patient was previously seen at [facility] and completed formal course of physical therapy and underwent multiple injections 2-3 years ago with mixed results. She was referred to our office by her PCP for lumbar radiculopathy and was ordered lumbar spine MRI which was denied by her insurance. Back pain is axial and radiates to upper and lower extremities per patient. She also reports chronic right upper back pain with shooting pain down into her lower back. Pain is present with activity and rest and flares up with any movement, stress or weather changes. Pain is constant and is rated at 10/10. Patient reports tramadol and gabapentin allow her to be less symptomatic and more functional. Reports previous courses of PT for shoulder and knee pain were ineffective but willing to undergo PT for back and neck pain. Denies any fever or chills, abdominal or groin pain, weakness, footdrop, bladder or bowel dysfunction or saddle anesthesia. Patient follows with Endocrinology and Rheumatology services. Location: Lower back, right upper back, widespread body pain Duration: Chronic pain for couple years Characteristics of symptom or complaint: Aching, numbness, tingling, spasming, shooting, tiring, radiating, heavy, Aggravating or associated factors: Prolonged walking or sitting, cold weather, movements, ADLs, stress Relieving factors: Tramadol, gabapentin, heat therapy, activity modifications, rest Treatment: PT, injections at [facility] Medical History Low vitamin B12 level Smoker Numbness Wheezing Chronic radicular pain of lower back Foot pain, bilateral Joint pain in both hands Breast pain Hypokalemia Breast pain, right Allergies Migraines Renal calculi Bipolar disorder Chronic abdominal pain Osteoporosis Hyperparathyroidism Multinodular thyroid Depression Fibromyalgia Thrombocytosis Leukocytosis GERD (gastroesophageal reflux disease) Thyroid cancer PONV (postoperative nausea and vomiting) Elevated cholesterol Difficulty swallowing Vitamin D deficiency Anxiety Pulmonary nodule Asthma HTN (hypertension) Surgical History H/O pyloroplasty (03/27/24) History of excision of mass Hx of thyroidectomy H/O esophagogastroduodenoscopy H/O colonoscopy History of bilateral oophorectomy Hx of cholecystectomy S/P excision of lipoma History of total abdominal hysterectomy Hx of appendectomy Family History Father Diabetes mellitus Skin cancer Prostate cancer Mother HTN (hypertension) High cholesterol Mental health disorder Maternal Grandfather Myocardial infarction Maternal Grandmother No problems noted. Paternal Grandfather No problems noted. Paternal Grandmother Breast cancer Sister Mental health disorder Social History Household Members: None Housing: Apartment Are you a primary managed care director to a significant other at home: No Do you presently have visiting nurse or other home services: No Alcohol intake: never Patient Tobacco Use Status: Current everyday Tobacco user Tobacco use type: Cigarette Cigarettes Per Day: 5 Years Smoked: 20 e-Cigarette/Vaping Use: Never Used Second Hand Smoke Exposure: No Advance Directives Date on File: 10/05/16 service: No Current occupational status: disabled Sexual orientation: Straight/Heterosexual Gender identity: Female Cognitive needs: No Hearing needs: No Vision needs: No Review of Systems Const All systems reviewed & are unremarkable except as noted in HPI and below Physical Exam Vital Signs: Last Vital Signs Pulse 103 H 10/25/24 13:41 BP 118/58 L 10/25/24 13:41 Pulse Ox 100 10/25/24 13:41 Oxygen Delivery Method Room Air 10/25/24 13:41 BMI result Body Mass Index 29.2 General: Appears afebrile. Alert and oriented. Mood and affect appropriate. Follows and participates in conversation appropriately. Respiratory effort is unlabored. No cough. Able to transition from sit to stand unassisted. Ambulates with cane. Ambulates with bilaterally normal heel strike and toe off. General: Yes no CVA tenderness Back/Spine/Pelvis Other: Limited lumbar ROM due to pain. Lumbar extension reproduces moderate pain. Flexion is intact and reproduces mild pain. Multiple widespread TTPs 16/16 bilaterally, including upper and lower extremities.?Demonstrates 5/5 strength of quadriceps bilaterally as well as flexion/dorsiflexion of bilateral feet against resistance. 2+ pedal pulses bilat erally. Straight leg rise with dorsiflexion negative bilaterally. +1 patellar and achilles reflexes bilaterally. Facet loading test positive bilaterally. Gabby sign, Herrera?s, Gaenslen, Pelvic compression and Stinchfield tests are positive bilaterally. No groin pain with I/E hip rotations. Valsalva maneuver is negative. Back: no CVA tenderness Cervical Spine: cervical ROM normal, cervical muscular tenderness, pain with cervical ROM, No Cervical spine tenderness and No step off deformity Thoracic/Lumbar Spine: thoracic and lumbar spine normal to inspection, No Thoracic/lumbar spine scar(s), Lasegue's sign negative, straight leg raise negative bilaterally, pain with thoraco-lumbar ROM, paraspinal muscle te nderness, thoraco-lumbar ROM limited, No thoracic spinal tenderness and lumbar spinal tenderness at L4 and at L5 Pelvis: buttock tenderness bilaterally Sacroiliac joints: bilaterally tender to palpation Extrem General: Yes capillary refill normal, Yes no clubbing, cyanosis or edema and Yes no calf tenderness Results Reviewed Results Reviewed: XR LUMBAR SPINE 08/05/25 CLINICAL INFORMATION: Radiculopathy, lumbar region M54.16. COMPARISON: None available. TECHNIQUE: 5 views of lumbar spine. FINDINGS: Normal vertebral body alignment. The lumbar lordosis is maintained. No acute fracture or subluxation. No loss of vertebral body height or intervertebral disc height. Tiny anterior endplate osteophytes at T11 through L1. No concerning lytic or blastic osseous lesion. Right upper quadrant surgical clips. Surgical coils overlying the anterior pelvic wall. No abnormal soft tissue calcification. IMPRESSION: Minimal degenerative disc disease at T11 through L1. XR CERVICAL SPINE 08/05/24 CLINICAL INFORMATION: Age-related osteoporosis without current pathological fracture M81.0. COMPARISON: XR Cervical spine without flexion/extension 08/16/2022 TECHNIQUE: 6 views of the cervical spine, inclusive of flexion and extension views, were obtained. FINDINGS: The vertebral alignment is normal. No intrinsic bony abnormality. No fracture or subluxation. Degenerative changes with disc space narrowing and osteophyte formation is seen at C5/6 and C6/7. Posterior facet joints appear well-maintained. No significant neural foraminal osseous encroachment. Surgical clips are seen in the paratracheal soft tissues The surrounding prevertebral soft tissues are otherwise unremarkable. IMPRESSION: Degenerative disc disease at C5/6 and C6/7. XR DEXA appendicular skeleton 08/12/24 IMPRESSION: 1. DIAGNOSIS: Osteoporosis based on the lowest T-score value of -3.5 in the lumbar spine applying World Health Organization criteria. Assessment & Plan Assessment & Plan (1) Fibromyalgia: Code(s): M79.7 - Fibromyalgia Category: Medical (2) Osteoporosis: Code(s): M81.0 - Age-related osteoporosis without current pathological fracture Category: Medical (3) Cervicalgia: Code(s): M54.2 - Cervicalgia Category: Medical (4) Lumbosacral spondylosis: Code(s): M47.817 - Spondylosis without myelopathy or radiculopathy, lumbosacral region Category: Medical (5) Sacroiliac joint pain: Code(s): M53.3 - Sacrococcygeal disorders, not elsewhere classified Category: Medical (6) Degenerative disc disease, cervical: Code(s): M50.30 - Other cervical disc degeneration, unspecified cervical region Category: Medical (7) Spondylosis of thoracolumbar spine: Code(s): M47.815 - Spondylosis without myelopathy or radiculopathy, thoracolumbar region Category: Medical Plan Cervical and lumbar spine imaging results were discussed with patient today. Neck and back pain has been resistant to conservative treatments, including physical therapy, heat applications and medical management. Reviewed interventional treatments for current pain generators including diagnostic injections for potential peripheral nerve stimulation or RFA procedures. Giving [id number] osteoporosis of lumbar spine per recent bone scan, patient is not candidate for therapeutic steroid injections at this time. She follows Dr. Valdes and has been on Evenity. Schedule bilateral diagnostic sacroiliac joint injections with local and fluoroscopy. Expectations, risks and benefits were reviewed. Patient is aware she will be contacted to schedule this procedure. Continue regular daily physical activity, adequate hydration, avoid inflammatory or ultra processed foods, consider acupuncture, CBT therapy, and swimming for polyarthralgia and fibromyalgia. All questions and concerns have been answered patient agreed with the treatment plan. Follow-up after injections and sooner as needed. Coding Level of Care Code Est Pt Level 4 (99274) Complex EM visit Add On G2211 Diagnoses Fibromyalgia M79.7 Osteoporosis M81.0 Cervicalgia M54.2 Lumbosacral spondylosis M47.817 Sacroiliac joint pain M53.3 Degenerative disc disease, cervical M50.30 Spondylosis of thoracolumbar spine M47.815
[2024-10-25 13:41] VITALS: BP 118/58; PULSE 103; O2SAT 100; BMI 29.2
--- OUTSIDE RECORDS SUMMARY | 2024-10-25 13:49 | XMS_ITS | Clinical Summary ---
Author Organization [facility], Address [address] [place] [address] [place] [address] Phone Care Team Providers Care Senior Analyst Developer Name Role Phone Raymundo Mcdonald NP Primary Care Provider [phone] Allergies Active Allergy Reactions Criticality Noted Date [...] [facility] Care Teams Senior Analyst Developer Relationship Specialty Start Date End Date Raymundo Mcdonald NP [facility] [place] [address] PCP - General Nurse Practitioner 10/10/23
--- OUTSIDE RECORDS SUMMARY | 2024-10-25 13:49 | XMS_ITS | Clinical Summary ---
Author Organization [employer] [facility] Address [address] [place] [address] Care Team Providers Care Retail Sales Lead Name Role Phone Cr Madera MD Primary Care Provider [phone] Surgical History Surgery Date Site/Laterality Comments VENTRAL HERNIA REPAIR PROCEDURE: HISTORICAL VTRL WALL HERNIA RE APPENDECTOMY PROCEDURE: HISTORICAL APPENDECTOMY; COMMENT: w/ incisional hernia repair HYSTERECTOMY PROCEDURE: HISTORICAL TOTAL HYSTERECTOMY WITH BSO HERNIA REPAIR PROCEDURE: IA REPAIR FIRST ABDOMINAL WALL HERNIA Medical History [...] age to complete this topic Care Teams Retail Sales Lead Relationship Specialty Start Date End Date Cr Madera MD [address] [place] [address] PCP - General Internal Medicine 07/05/17
--- OUTSIDE RECORDS SUMMARY | 2024-10-25 13:49 | XMS_ITS | Encounter Summary ---
Author Organization [facility], Address [address] [place] [address] Phone Care Team Providers Care Brush Or Broom Cutter Name Role Phone Raymundo Mcdonald NP Primary Care Provider [phone] Encounter Details Date Type Department Care Team (Late st Contact Info) Description 10/10/2023 Documentation Only [facility], [address] [place] [address] Minna SimpsonJoiner, [place] [address] [place] [address] Social History Tobacco Use Types [...] on filedocumented in this encounter Care Teams Brush Or Broom Cutter Relationship Specialty Start Date End Date Raymundo Mcdonald NP [address] [place] [id number] PCP - General Nurse Practitioner 10/10/23 documented as of this encounter
--- OUTSIDE RECORDS SUMMARY | 2024-10-25 13:49 | XMS_ITS | Clinical Summary ---
Author Organization [employer] Address [address] [facility] 7t [place] [address] Care Team Providers Care Seater Assembler Name Role Phone Unavailable Primary Care Provider [...] Upcoming Encounters Date Type Department Care Team ([facility] st Contact Info) Description 10/30/2024 3:45 PM EST Office Visit [facility]ETRY [address] [place] [address] Debby Escamilla OD [address] [place] [address] 01/28/2025 1:00 PM EDT Office Visit [facility] OPTOMETRY [address] [place] [address] Pily Perkins, OD [address] [place] [address] Health Maintenance Due Date Last Done Comments [...] patient's age to complete this topic Insurance [facility] [address] [place] [id number] [place] [id number] [place] [id number]
== END 2024-10-25 13:56 | disposition home or self-care (01) ==
PROVIDERS: PCP Nurse Practitioner Family; Visit Provider Nurse Practitioner Family
DX: M79.7 Fibromyalgia (principal); M81.0 Age-related osteoporosis without current pathological fracture; M54.2 Cervicalgia; M47.817 Spondylosis without myelopathy or radiculopathy, lumbosacral region; M53.3 Sacrococcygeal disorders, not elsewhere classified; M50.30 Other cervical disc degeneration, unspecified cervical region; M47.815 Spondylosis without myelopathy or radiculopathy, thoracolumbar region
CPT/HCPCS: 99214; G2211

== ENCOUNTER → 2024-10-25 13:28 | Outpatient (BNVA) | payer OTHER, SELFPAY | PROVIDERS: PCP Nurse Practitioner Family; Visit Provider Nurse Practitioner Family | DX: M79.7 Fibromyalgia (principal); M81.0 Age-related osteoporosis without current pathological fracture; M54.2 Cervicalgia; M47.817 Spondylosis without myelopathy or radiculopathy, lumbosacral region; M53.3 Sacrococcygeal disorders, not elsewhere classified; M50.30 Other cervical disc degeneration, unspecified cervical region; M47.815 Spondylosis without myelopathy or radiculopathy, thoracolumbar region | CPT/HCPCS: 99212 ==

== ENCOUNTER 2024-10-29 09:15 | Outpatient (REF) | payer OTHER, SELFPAY ==
[2024-10-29 10:09] LABS: Anion Gap 14 (12-20); Blood Urea Nitrogen 12 mg/dL (9-16); Calcium 10.1 mg/dL (8.4-10.2); Carbon Dioxide 25 mmol/L (22-29); Chloride 106 mmol/L (96-108); Estimated Glomerular Filt Rate > 60; Glucose Random 89 mg/dL (60-115); Potassium 4.1 mmol/L (3.3-5.1); Sodium 141 mmol/L (135-145)
--- OUTSIDE RECORDS SUMMARY | 2024-10-29 10:09 | XMS_ITS | Clinical Summary ---
Author Organization [employer] Address [address] [facility] [address] [place] [address] Care Team Providers Care Human Resources Team Member Name Role Phone Unavailable Primary Care Provider [...] Upcoming Encounters Date Type Department Care Team ([facility] st Contact Info) Description 10/30/2024 3:45 PM EST Office Visit [facility] OPTOMETRY [address] [place] [address] Debby Escamilla OD [address] [place] [address] 01/28/2025 1:00 PM EDT Office Visit C OPTOMETRY [address] [place] [address] Pily Perkins, OD [address] [place] [address] Health Maintenance Due Date Last Done Comments [...] patient's age to complete this topic Insurance [facility] [address] [place] [id number] [place] [id number] [place] [id number]
--- OUTSIDE RECORDS SUMMARY | 2024-10-29 10:09 | XMS_ITS | Clinical Summary ---
Author Organization [employer] [facility] Address [address] [place] [address] Care Team Providers Care Channel Development Manager Name Role Phone Cr Madera MD Primary Care Provider [phone] Surgical History Surgery Date Site/Laterality Comments VENTRAL HERNIA REPAIR PROCEDURE: HISTORICAL VTRL WALL HERNIA RE APPENDECTOMY PROCEDURE: HISTORICAL APPENDECTOMY; COMMENT: w/ incisional hernia repair HYSTERECTOMY PROCEDURE: HISTORICAL TOTAL HYSTERECTOMY WITH BSO HERNIA REPAIR PROCEDURE: [place] REPAIR FIRST ABDOMINAL WALL HERNIA Medical History [...] age to complete this topic Care Teams Channel Development Manager Relationship Specialty Start Date End Date Cr Madera MD [address] [place] [address] PCP - General Internal Medicine 07/05/17
--- OUTSIDE RECORDS SUMMARY | 2024-10-29 10:09 | XMS_ITS | Clinical Summary ---
Author Organization [facility], Address [address] [place] [address] [place] [address] Phone Care Team Providers Care Progressive Assembler And Fitter Name Role Phone Raymundo Mcdonald NP Primary Care Provider [phone] Allergies Active Allergy Reactions Criticality Noted Date [...] patient's age to complete this topic Insurance [facility] MEDICAID Care Teams Progressive Assembler And Fitter Relationship Specialty Start Date End Date Raymundo Mcdonald NP [facility] [place] [address] PCP - General Nurse Practitioner 10/10/23
--- OUTSIDE RECORDS SUMMARY | 2024-10-29 10:09 | XMS_ITS | Encounter Summary ---
Author Organization [facility], Address [address] [place] [address] Phone Care Team Providers Care Physical Plant Manager Name Role Phone Raymundo Mcdonald NP Primary Care Provider [phone] Encounter Details Date Type Department Care Team (Late st Contact Info) Description 10/10/2023 Documentation Only [facility], [address] [place] [address] [place], [place] [address] [place] [address] Social History Tobacco Use Types [...] on filedocumented in this encounter Care Teams Physical Plant Manager Relationship Specialty Start Date End Date Raymundo Mcdonald NP [address] [place] [id number] PCP - General Nurse Practitioner 10/10/23 documented as of this encounter
[2024-10-29 11:30] LABS: Free T4 (Free Thyroxine) 1.06 ng/dL (0.71-1.85); Thyroid Stimulating Hormone 1.13 uIU/mL (0.32-4.0)
== END 2024-10-29 09:16 | disposition home or self-care (01) ==
LOC: HO.LAB 09:15
PROVIDERS: PCP Nurse Practitioner Family; Referring Provider Student in an Organized Health Care Education/Training Program; Visit Provider Internal Medicine Hypertension Specialist
DX: E87.6 Hypokalemia (principal); I10 Essential (primary) hypertension; E04.2 Nontoxic multinodular goiter; Z85.850 Personal history of malignant neoplasm of thyroid; E89.0 Postprocedural hypothyroidism
CPT/HCPCS: 36415; 80048; 84439; 84443; 99212

== ENCOUNTER 2024-10-29 09:37 | Outpatient (AMB) | payer OTHER, SELFPAY ==
[2024-10-29 09:38] VITALS: BP 130/80; PULSE 108; O2SAT 96; BMI 28.7
--- NOTE | 2024-10-29 09:38 | MHC.OFFVIS ---
Vital Signs 10/29/24 09:38 Height 5 ft 3 in Weight 162 lb 0.636 oz BMI 28.7 BP 130/80 Blood Pressure Location Rt brachial Position Sitting Pulse 108 H Pulse Source Pulse Oximeter Pulse Oximetry (%) 96 Oxygen Delivery Method Room Air Intake Visit Reasons: Nontoxic multinodular goiter Intake Note: Patient present today for Nontoxic multinodular goiter office visit. Sheet Rocker Required: Yes Sheet Rocker Services: Sheet Rocker Present Sheet Rocker Name: Sammarinese Information Interpreted: non-clinical & clinical Accompanied by: Self / Same As Patient Allergies Sulfa (Sulfonamide Antibiotics) [SULFA (SULFONAMIDE ANTIBIOTICS)] Allergy (Intermediate, Verified 10/29/24 09:44) HIVES Latex, Natural Rubber Allergy (Mild, Verified 10/29/24 09:44) Rash egg Allergy (Verified 10/29/24 09:44) Abdominal Pain strawberry Allergy (Verified 10/29/24 09:44) Abdominal Pain aspirin [ASPIRIN] Adverse Reaction (Intermediate, Verified 10/29/24 09:44) ABD PAIN morphine [MORPHINE] Adverse Reaction (Intermediate, Verified 10/29/24 09:44) Abdominal Pain almond Allergy (Severe, Uncoded 10/29/24 09:44) Stomack pain Lactose intollerance Allergy (Severe, Uncoded 10/29/24 09:44) Stomach pain, nausceau Medication List - Last Reconciled 10/29/24 by Angelina Cohen MD albuterol sulfate 2.5 mg (3 mL) inhalation DAILY PRN amitriptyline 50 mg (2 x 25 mg) PO BEDTIME 30 days amlodipine 10 mg PO DAILY azelastine 1 spray intranasal BID cane Quad cane cephalexin 500 mg PO Q8H cholecalciferol (vitamin D3) 25 mcg PO DAILY clonazepam 0.5 mg PO DAILY PRN clonazepam 1 mg PO BEDTIME PRN cyproheptadine 4 mg PO BEDTIME PRN 30 days diclofenac sodium 1% 2 grams topical BID PRN NS diclofenac sodium 50 mg PO BID PRN famotidine 40 mg PO BEDTIME fluvoxamine 100 mg PO BID gabapentin 800 mg PO TID galcanezumab-gnlm (Emgality Pen) 120 mg subcut Q30D hydrocortisone 2.5% 1 appl DC Q8-12H hydrocortisone acetate (Anusol-HC) 25 mg DC BID PRN hyoscyamine sulfate 0.125 mg PO BID-QID loratadine 10 mg PO DAILY memantine 10 mg PO Q OTHER DAY mometasone-formoterol 200-5 mcg/actuation (Dulera) 2 puffs inhalation Q12H 30 days montelukast 10 mg PO BEDTIME multivitamin with folic acid 400 mcg (Daily-Laxmi (with folic acid)) 1 tab PO DAILY naloxone 4 mg/actuation (Narcan) 1 spray intranasal Q2M nicotine (Nicotrol) 10 mg inhalation Q2-4H PRN 30 days nicotine 1 patch transdermal DAILY 28 days omega-3 acid ethyl esters 1 cap PO BID 90 days omeprazole 40 mg PO DAILY ondansetron 8 mg PO Q8H PRN polyethylene glycol 3350 (Gavilax) 17 grams PO DAILY potassium chloride ER 10 mEq PO DAILY 30 days pravastatin 10 mg PO BEDTIME rizatriptan 10 mg PO DAILY PRN romosozumab-aqqg (Evenity) 210 mg subcut Q28D sennosides (Senna Laxative) 17.2 mg (2 x 8.6 mg) PO BEDTIME sertraline 50 mg PO DAILY Shower Chair As directed spironolactone 25 mg PO DAILY tizanidine 4 mg PO BID PRN HPI Comments Details: 59 year-old female with past medical history nontoxic multinodular goiter who is seen in follow-up today for 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 Daryl Hennessy at [facility], with pathology showing papillary microcarcinoma, with no angioinvasion, no lymphatic invasion, no extrathyroidal extension, DENIS low risk of recurrence, AJCC stage I pT1a NX. She has right-sided subcentimeter thyroid nodules that we are following. See with the help of spanish medical interpreter Sammarinese Sees Dr. Valdes for osteporosis and hyperparathyrodidism on Evenity not addressed today. She is following with Dr. Valdes for this. HPI from prior visit 2019: patient was seen initially for 3.2 cm left-sided thyroid lobe nodule and underwent FNA with benign cytology. She complained of compressive symptoms in this was referred to Dr. Hennessy for surgical thyroidectomy. She also was found to have laboratory evidence of primary hyperparathyroidism. 01/15/2019: She underwent left hemithyroidectomy with bilateral inferior parathyroidectomy . With surgical pathology revealed papillary microcarcinoma of the thyroid, 0.4 cm, unifocal, no angio invasion or lymphatic invasion, no extrathyroidal extension. PT1a pNX. , AJCC stage I, DENIS low risk of recurrence No additional treatment was recommended. Surgical pathology from her parathyroid glands revealed a right inferior parathyroid to have normocellular pathology, and the left inferior parathyroid gland to be hypercellular. The right inferior parathyroid weight 200 mg with the left inferior parathyroid weighing 160 mg. Immediate postoperative PTH was 23. No intraoperative PTH was assessed. She did initially request completion thyroidectomy, but after consultation with Dr. Hennessy she has decided against this and wishes to instead proceed with yearly surveillance of her R sided thyroid nodules. 2019: thyroid US revealed interval growth of a nodule on in the R lobe, and a newly identified complex cystic subcentimeter nodule within the R lobe. 04/23/2020: FNA biopsy of this R sided nodule with benign cytology. 05/27/2021: Ultrasound of the thyroid showed Stable right-sided subcentimeter thyroid nodules. 04/18/2022: Ultrasound of the thyroid showed Stable right-sided thyroid nodules 03/20/2023: Ultrasound of the thyroid showed stable subcentimeter right-sided nodules 02/14/2024: Ultrasound of the thyroid Right superior subcentimeter solid isoechoic TR 3 nodule, which is new, right midpole subcentimeter 0.9 cm nodule solid, isoechoic, with punctate echogenic foci, TR 4 category which remained stable in size, right lower pole subcentimeter nodule not seen anymore. Last set of thyroid labs done from June 2024 within normal limits. Interval history Right side of the neck hurts for the past 2 weeks She was also complaining of the sensation of swelling in her neck. Labs were repeated and were largely unchanged. Following with GI, scheduled for upper GI series Has constipation Intermittent palpitations and tremors Physical exam General: sitting comfortably in no acute distress HEENT: normocephalic/atraumatic Neck: supple, no palpable lymph nodes, has tenderness on the right side of the neck, looks like a muscle spasm Cardiac: normal heart sounds Pulm: normal breath sounds B/L, no added breath sounds Abd: not distended, no tenderness Extremities: no edema, no signs of myxedema Laboratory Tests 07/12/29/20 01/06/21 09:40 13:50 12:55 Free T4 1.10 1.13 TSH 0.94 0.91 04/23/21 08/24/21 10/11/21 11:25 10:46 11:39 Free T4 1.23 1.06 1.04 TSH 2.30 1.54 2.49 06/27/22 11/10/22 11/25/22 06:25 11:14 12:48 Free T4 1.31 0.94 TSH 2.17 1.85 2.30 03/20/23 06/30/23 12/29/23 13:36 08:43 10:04 Free T4 1.03 1.00 TSH 1.12 2.83 1.30 07/04/24 08:52 Free T4 0.94 TSH 1.53 US THYROID 02/14/24 CLINICAL INFORMATION: Nontoxic multinodular goiter. COMPARISON: Ultrasound thyroid 03/20/2023 and 04/18/2022. CT neck 10/19/2018. TECHNIQUE: Linear transducer grayscale and color Doppler examination with attention to the region of the thyroid. FINDINGS: SIZE: Measurements of the thyroid lobes and nodules are given in sagittal, anteroposterior and transverse dimensions respectively. Right Thyroid Lobe: 4.9 x 2.4 x 2.2 cm, volume 13.5 mL. Previously 5.3 x 2.6 x 1.9 cm, volume 13.7 mL. Parenchyma: The gland echotexture is mildly mildly heterogeneous. Thyroid vascularity is normal. Left Thyroid Lobe: Surgically absent. Isthmus: 0.3 cm in maximum AP dimension. Previously 0.4 cm. Estimated total number of nodules greater than or equal to 1 cm: 0. Radiologic Technician nodules are described as follows: 1. Location: Right upper. Size: 0.5 x 0.3 x 0.4 cm, volume 0.03 mL. Previously: Not seen on previous exam. Nodule characteristics: Composition: Solid (2). Echogenicity: Isoechoic (1). Shape: Not taller than wide (0). Margins: Smooth (0). Echogenic Foci: None (0). ACR TI-RADS total points: 3 Previous: N/A ACR TI-RADS category: 3 Previous: N/A 2. Location: Right mid pole. Size: 0.9 x 0.5 x 0.6 cm, volume 0.1 mL. Previously: 0.8 x 0.5 x 0.7 cm, volume 0.1 mL. Nodule characteristics: Composition: Solid (2). Echogenicity: Isoechoic (1). Shape: Not taller than wide (0). Margins: Smooth (0). Echogenic Foci: Punctate echogenic foci (3). ACR TI-RADS total points: 6 Previous: 3 ACR TI-RADS category: 4 Previous: 3 Significant change in size (>/= 20% in 2 dimensions and minimal increase of 2 mm or 50% or greater increase in volume): Change in features: Change in ACR TI-RADS risk category: 3. Location: Right lower pole. Size: Not seen on current exam Previously: 0.2 x 0.3 x 0.4 cm, volume 0.01 mL. Nodule characteristics: ACR TI-RADS total points: N/A Previous: 2 ACR TI-RADS category: N/A Previous: 2 NODES: No lymphadenopathy is seen in the tissue surrounding the thyroid gland. US/US thyroid IMPRESSION: History of left hemithyroidectomy. Right mid 0.9 cm TR 4 thyroid nodule is stable in size. Right upper 0.5 cm TR 3 thyroid nodule was not identified on the prior exam. Enlarged, diffusely heterogeneous thyroid gland. US THYROID 03/20/23 CLINICAL INFORMATION: Personal history of malignant neoplasm of thyroid. COMPARISON: Ultrasound thyroid 04/18/2022 and 05/27/2021. CT soft tissue neck with contrast 10/09/2018. TECHNIQUE: Linear transducer grayscale and color Doppler examination with attention to the region of the thyroid. FINDINGS: SIZE: Measurements of the solitary right thyroid lobe and nodules are given in sagittal, anteroposterior and transverse dimensions respectively. Right Thyroid Lobe: 5.3 x 2.6 x 1.9 cm, volume 13.7 mL. Previously 5.2 x 2.3 x 2.1 cm, volume 13.1 mL. Parenchyma: The gland echotexture is homogeneous. Thyroid vascularity is normal. Left Thyroid Lobe: Surgically absent. Isthmus: 0.4 cm in maximum AP dimension. Previously 0.3 cm. Estimated total number of nodules greater than or equal to 1 cm: 0. Radiologic Technician nodules are described as follows: 1. Location: Right mid. Size: 0.8 x 0.5 x 0.7 cm, volume 0.1 mL. Previously: 0.8 x 0.8 x 0.5 cm, volume 0.1 mL. Nodule characteristics: Composition: Solid (2). Echogenicity: Isoechoic (1). Shape: Not taller than wide (0). Margins: Smooth (0). Echogenic Foci: Comet-tail artifacts (0). ACR TI-RADS total points: 3 Previous: 4 ACR TI-RADS category: 3 Previous: 4 2. Location: Right inferior. Size: 0.3 x 0.3 x 0.4 cm, volume 0.02 mL. Previously: 0.4 x 0.4 x 0.3 cm, volume 0.02 mL. Nodule characteristics: Composition: Cystic(0). ACR TI-RADS total points: 0 Previous: 0 ACR TI-RADS category: 1 Previous: 1 3. Location: Right inferior. Size: 0.2 x 0.3 x 0.4 cm, volume 0.01 mL. Previously: 0.3 x 0.3 x 0.2 cm, volume 0.01 mL. Nodule characteristics: Composition: Mixed cystic and solid (1). Echogenicity: Cannot be determined (1). Shape: Not taller than wide (0). Margins: Smooth (0). Echogenic Foci: None (0). ACR TI-RADS total points: 2 Previous: 0 ACR TI-RADS category: 2 Previous: 1 NODES: No lymphadenopathy is seen in the tissue surrounding the thyroid gland. US/US thyroid IMPRESSION: The left thyroid lobe is surgically absent. Right thyroid lobe remains enlarged. Redemonstration of multiple subcentimeter thyroid nodules, largest right mid pole 0.8 cm TR4 is stable in size. US THYROID 04/18/22 CLINICAL INFORMATION: Goiter. COMPARISON: Ultrasound thyroid 05/27/2021. TECHNIQUE: Linear transducer degroot-scale and color Doppler examination with attention to the region of the thyroid. FINDINGS: SIZE: Measurements of the thyroid lobes and nodules are given in sagittal, anteroposterior and transverse dimensions respectively. Right Thyroid Lobe: 5.2 x 2.3 x 2.1 cm, volume 13.1 mL. Previously 5.5 x 2.2 x 2.4 cm, volume 15.2 mL. Parenchyma: The gland echotexture is homogeneous. Thyroid vascularity is normal. Left Thyroid Lobe: Left thyroid removed. Isthmus: 0.3 cm in maximum AP dimension. Previously 0.3 cm. Estimated total number of nodules greater than or equal to 1 cm: 0. Radiologic Technician nodules are described as follows: 1. Location: Right mid lateral. Size: 0.8 x 0.8 x 0.5 cm, volume 0.17 mL. Previously: 0.9 x 0.5 x 0.7 cm, volume 0.16 mL. Nodule characteristics: Composition: Solid (2). Echogenicity: Hypoechoic (2). Shape: Not taller than wide (0). Margins: Smooth (0). Echogenic Foci: None (0). ACR TI-RADS total points: 4 Previous: 4 ACR TI-RADS category: 4 Previous: 4 Significant change in size (>/= 20% in 2 dimensions and minimal increase of 2 mm or 50% or greater increase in volume): None. Change in features: None. Change in ACR TI-RADS risk category: None. 2. Location: Right lower pole. Size: 0.4 x 0.4 x 0.3 cm, volume 0.02 mL. Previously: 0.4 x 0.4 x 0.5 cm, volume 0.04 mL. Nodule characteristics: Composition: Cystic(0). ACR TI-RADS total points: 0 Previous: 0 ACR TI-RADS category: 1 Previous: 0 Significant change in size (>/= 20% in 2 dimensions and minimal increase of 2 mm or 50% or greater increase in volume): None. Change in features: None. Change in ACR TI-RADS risk category: None. 3. Location: Right lower pole. Size: 0.3 x 0.3 x 0.2 cm, volume 0.01 mL. Previously: 0.5 x 0.3 x 0.3 cm, volume 0.02 mL. Nodule characteristics: Composition: Cystic(0). ACR TI-RADS total points: 0 Previous: 0 ACR TI-RADS category: 1 Previous: 1 Significant change in size (>/= 20% in 2 dimensions and minimal increase of 2 mm or 50% or greater increase in volume): None. Change in features: None. Change in ACR TI-RADS risk category: None. NODES: No lymphadenopathy is seen in the tissue surrounding the thyroid gland. US/US thyroid IMPRESSION: Multiple pulmonary nodules, the largest measured are stable. The left lobe has been removed. The right lobe is enlarged and unchanged to previous study. Thyroid US: 05/27/2021 Right Thyroid Lobe: 5.5 x 2.2 x 2.4 cm, volume 15.2 mL. Previously 5.5 x 2.2 x 2.4 cm, volume 15.2 mL. Parenchyma: The gland echotexture is homogeneous. Thyroid vascularity is increased. Left Thyroid Lobe: Surgically absent. Isthmus: 0.3 cm in maximum AP dimension. Previously 0.2 cm. Estimated total number of nodules greater than or equal to 1 cm: 0. Radiologic Technician nodules are described as follows: 1.? Location: Right mid lateral. ?? ? Size: 0.9 x 0.5 x 0.7 cm, volume 0.16 mL. ?? ? Previously: 1.0 x 0.7 x 0.6 cm, volume 0.22 mL. ?? ? Nodule characteristics: ?? ? Composition: Solid (2). ?? ? Echogenicity: Hypoechoic (2). ?? ? Shape: Not taller than wide (0). ?? ? Margins: Smooth (0). ?? ? Echogenic Foci: None (0). ? ACR TI-RADS total points: 4 ?? ? ACR TI-RADS category: 4 ? Significant change in size (>/= 20% in 2 dimensions and minimal increase of 2 mm or 50% or greater increase in volume): No ?? ? Change in features: No ?? ? Change in ACR TI-RADS risk category: No 2.? Location: Right inferior. ?? ? Size: 0.4 x 0.4 x 0.5 cm, volume 0.04 mL. ?? ? Previously: New since the prior study. ?? ? Nodule characteristics: ?? ? Composition: Cystic(0). ?? ? ACR TI-RADS total points: 0 ?? ? ACR TI-RADS category: 1 ?? ? 3.? Location: Right inferior. ?? ? Size: 0.5 x 0.3 x 0.3 cm, volume 0.02 mL. ?? ? Previously: 0.3 x 0.3 x 0.4 cm, volume 0.02 mL. ?? ? Nodule characteristics: ?? ? Composition: Cystic(0). ?? ? ACR TI-RADS total points: 0 ?? ? ACR TI-RADS category: 1 ? Significant change in size (>/= 20% in 2 dimensions and minimal increase of 2 mm or 50% or greater increase in volume): ?? ? Change in features: ?? ? Change in ACR TI-RADS risk category: NODES: No lymphadenopathy is seen in the tissue surrounding the thyroid gland. [facility] Medical History Low vitamin B12 level Smoker Numbness Wheezing Chronic radicular pain of lower back Foot pain, bilateral Joint pain in both hands Breast pain Hypokalemia Breast pain, right Allergies Migraines Renal calculi Bipolar disorder Chronic abdominal pain Osteoporosis Hyperparathyroidism Multinodular thyroid Depression Fibromyalgia Thrombocytosis Leukocytosis GERD (gastroesophageal reflux disease) Thyroid cancer PONV (postoperative nausea and vomiting) Elevated cholesterol Difficulty swallowing Vitamin D deficiency Anxiety Pulmonary nodule Asthma HTN (hypertension) Surgical History H/O pyloroplasty (03/27/24) History of excision of mass Hx of thyroidectomy H/O esophagogastroduodenoscopy H/O colonoscopy History of bilateral oophorectomy Hx of cholecystectomy S/P excision of lipoma History of total abdominal hysterectomy Hx of appendectomy Family History Father Diabetes mellitus Skin cancer Prostate cancer Mother HTN (hypertension) High cholesterol Mental health disorder Maternal Grandfather Myocardial infarction Maternal Grandmother No problems noted. Paternal Grandfather No problems noted. Paternal Grandmother Breast cancer Sister Mental health disorder Social History Household Members: None Housing: Apartment Are you a primary career developer to a significant other at home: No Do you presently have visiting nurse or other home services: No Alcohol intake: never Patient Tobacco Use Status: Current everyday Tobacco user Tobacco use type: Cigarette Cigarettes Per Day: 5 Years Smoked: 20 e-Cigarette/Vaping Use: Never Used Second Hand Smoke Exposure: No Advance Directives Date on File: 10/05/16 service: No Current occupational status: disabled Sexual orientation: Straight/Heterosexual Gender identity: Female Cognitive needs: No Hearing needs: No Vision needs: No Physical Exam Vital Signs: Last Vital Signs Pulse 108 H 10/29/24 09:38 BP 130/80 10/29/24 09:38 Pulse Ox 96 10/29/24 09:38 Oxygen Delivery Method Room Air 10/29/24 09:38 BMI result Body Mass Index 28.7 Assessment & Plan Assessment & Plan (1) History of thyroid cancer: Code(s): Z85.850 - Personal history of malignant neoplasm of thyroid Category: Medical Plan: 59 year-old female with past medical history nontoxic multinodular goiter who is seen in follow-up today for 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 Daryl Hennessy at [facility], with pathology showing papillary microcarcinoma, with no angioinvasion, no lymphatic invasion, no extrathyroidal extension, DENIS low risk of recurrence, AJCC stage I pT1a NX. She has right-sided subcentimeter thyroid nodules that we are following. In 2019 she underwent an FNA biopsy of 1 of her right-sided nodules due to interval size increase. Subsequently she has had many surveillance ultrasounds since then. Most recent thyroid ultrasound from February 2024 showed stable size of the subcentimeter right-sided nodules. She does have some compressive symptoms, some worsening dysphagia, she is following with the GI and is pending a upper GI series evaluation. At this time I will plan to repeat an ultrasound especially in the light of compressive symptoms. She did not require levothyroxine after her surgery, and has remained biochemically euthyroid, last set of labs was from June 2024. We will repeat at this time. Plan: -ordered ultrasound of the of the thyroid -ordered TSH, free T4 -follow up in 8 weeks to discuss results (2) Multinodular thyroid: Code(s): E04.2 - Nontoxic multinodular goiter Category: Medical Plan: See above Plan I spent 30 minutes in reviewing the record, seeing the patient and documenting in the medical record. Orders: Orders Thyroid Stimulating Hormone Today E04.2 - Nontoxic multinodular goiter, Z85.850 - Personal history of malignant neoplasm of thyroid Free T4 (Free Thyroxine) Today E04.2 - Nontoxic multinodular goiter, Z85.850 - Personal history of malignant neoplasm of thyroid US thyroid Today E04.2 - Nontoxic multinodular goiter, Z85.850 - Personal history of malignant neoplasm of thyroid Patient Instructions: Do thyroid labs today Do ultrasound of the thyroid , someone will call you to schedule this Follow up in 8 weeks Haz laboratorios de tiroides hoy Hazte julian ecograf?a de tiroides, alguien te llamar? para programarla. Seguimiento en 8 semanas. Coding Level of Care Code Est Pt Level 4 (16929) Diagnoses History of thyroid cancer Z85.850 Multinodular thyroid E04.2 Time Spent (min) 30
--- OUTSIDE RECORDS SUMMARY | 2024-10-29 10:51 | XMS_ITS | Encounter Summary ---
Author Organization [facility], Address [address] [place] [address] Phone Care Team Providers Care Award Machine Operator Name Role Phone Raymundo Mcdonald NP Primary Care Provider [phone] Encounter Details Date Type Department Care Team (Late st Contact Info) Description 10/10/2023 Documentation Only [facility], [address] [place] [address] [place], [place] [address] [place] [address] Social History Tobacco Use Types [...] on filedocumented in this encounter Care Teams Award Machine Operator Relationship Specialty Start Date End Date Raymundo Mcdonald NP [address] [place] [phone] PCP - General Nurse Practitioner 10/10/23 documented as of this encounter
--- OUTSIDE RECORDS SUMMARY | 2024-10-29 10:51 | XMS_ITS | Clinical Summary ---
Author Organization [facility] Address [address] [place] [address] Care Team Providers Care Machine Wood Sander Name Role Phone Cr Madera MD Primary Care Provider [phone] Surgical History Surgery Date Site/Laterality Comments VENTRAL HERNIA REPAIR PROCEDURE: HISTORICAL VTRL WALL HERNIA RE APPENDECTOMY PROCEDURE: HISTORICAL APPENDECTOMY; COMMENT: w/ incisional hernia repair HYSTERECTOMY PROCEDURE: HISTORICAL TOTAL HYSTERECTOMY WITH BSO HERNIA REPAIR PROCEDURE: [place] REPAIR FIRST ABDOMINAL WALL HERNIA Medical History [...] age to complete this topic Care Teams Machine Wood Sander Relationship Specialty Start Date End Date Cr Madera MD [address] [place] [address] PCP - General Internal Medicine 07/05/17
--- OUTSIDE RECORDS SUMMARY | 2024-10-29 10:51 | XMS_ITS | Clinical Summary ---
Author Organization [employer] Address [address] [facility] 7t [place] [address] Care Team Providers Care Ferry Terminal Supervisor Name Role Phone Unavailable Primary Care Provider [...] Upcoming Encounters Date Type Department Care Team ([facility] st Contact Info) Description 10/30/2024 3:45 PM EST Office Visit [facility] OPTOMETRY [address] [place] [address] Debby Escamilla OD [address] [place] [address] 01/28/2025 1:00 PM EDT Office Visit [facility] OPTOMETRY [address] [place] [address] Pily Perkins, OD [address] [place] [address] Health Maintenance Due Date Last Done Comments [...] patient's age to complete this topic Insurance [facility] [address] [place] [id number] [place] [id number] [place] [id number]
--- OUTSIDE RECORDS SUMMARY | 2024-10-29 10:51 | XMS_ITS | Clinical Summary ---
Author Organization [facility], Address [address] [place] [address] [place] [address] Phone Care Team Providers Care Stained Glass Installer Name Role Phone Raymundo Mcdonald NP Primary Care Provider [phone] Allergies Active Allergy Reactions Criticality Noted Date [...] patient's age to complete this topic Insurance [facility] MEDICAID Care Teams Stained Glass Installer Relationship Specialty Start Date End Date Raymundo Mcdonald [place] [address] PCP - General Nurse Practitioner 10/10/23
== END 2024-10-29 10:31 | disposition home or self-care (01) ==
PROVIDERS: PCP Nurse Practitioner Family; Visit Provider Student in an Organized Health Care Education/Training Program
DX: Z85.850 Personal history of malignant neoplasm of thyroid (principal); E04.2 Nontoxic multinodular goiter
CPT/HCPCS: 99214

== ENCOUNTER 2024-10-31 13:35 | Outpatient (AMB) | payer OTHER, SELFPAY ==
--- NOTE | 2024-10-31 13:56 | HO.NEPHOV ---
Vital Signs 10/31/24 13:57 Height 5 ft 3 in Weight 158 lb BMI 28.0 BP 110/76 Blood Pressure Location Lt brachial Position Sitting Pulse 97 Pulse Source Pulse Oximeter Pulse Oximetry (%) 97 Oxygen Delivery Method Room Air Intake Visit Reasons: Hypertension/ Conf Platform Consultant Required: Yes Platform Consultant Name: [id number] emma Accompanied by: Self / Same As Patient Allergies Sulfa (Sulfonamide Antibiotics) [SULFA (SULFONAMIDE ANTIBIOTICS)] Allergy (Intermediate, Verified 10/31/24 13:57) HIVES Latex, Natural Rubber Allergy (Mild, Verified 10/31/24 13:57) Rash egg Allergy (Verified 10/31/24 13:57) Abdominal Pain strawberry Allergy (Verified 10/31/24 13:57) Abdominal Pain aspirin [ASPIRIN] Adverse Reaction (Intermediate, Verified 10/31/24 13:57) ABD PAIN morphine [MORPHINE] Adverse Reaction (Intermediate, Verified 10/31/24 13:57) Abdominal Pain almond Allergy (Severe, Uncoded 10/29/24 09:44) Stomack pain Lactose intollerance Allergy (Severe, Uncoded 10/29/24 09:44) Stomach pain, nausceau Medication List - Last Reconciled 10/31/24 by Jayant Damon MD albuterol sulfate 2.5 mg (3 mL) inhalation DAILY PRN amitriptyline 50 mg (2 x 25 mg) PO BEDTIME 30 days amlodipine 10 mg PO DAILY azelastine 1 spray intranasal BID cane Quad cane cephalexin 500 mg PO Q8H cholecalciferol (vitamin D3) 25 mcg PO DAILY clonazepam 0.5 mg PO DAILY PRN clonazepam 1 mg PO BEDTIME PRN cyproheptadine 4 mg PO BEDTIME PRN 30 days diclofenac sodium 1% 2 grams topical BID PRN NS diclofenac sodium 50 mg PO BID PRN famotidine 40 mg PO BEDTIME fluvoxamine 100 mg PO BID gabapentin 800 mg PO TID galcanezumab-gnlm (Emgality Pen) 120 mg subcut Q30D hydrocortisone 2.5% 1 appl CA Q8-12H hydrocortisone acetate (Anusol-HC) 25 mg CA BID PRN hyoscyamine sulfate 0.125 mg PO BID-QID loratadine 10 mg PO DAILY memantine 10 mg PO Q OTHER DAY mometasone-formoterol 200-5 mcg/actuation (Dulera) 2 puffs inhalation Q12H 30 days montelukast 10 mg PO BEDTIME multivitamin with folic acid 400 mcg (Daily-Laxmi (with folic acid)) 1 tab PO DAILY naloxone 4 mg/actuation (Narcan) 1 spray intranasal Q2M nicotine (Nicotrol) 10 mg inhalation Q2-4H PRN 30 days nicotine 1 patch transdermal DAILY 28 days omega-3 acid ethyl esters 1 cap PO BID 90 days omeprazole 40 mg PO DAILY ondansetron 8 mg PO Q8H PRN polyethylene glycol 3350 (Gavilax) 17 grams PO DAILY potassium chloride ER 30 mEq PO DAILY pravastatin 10 mg PO BEDTIME prazosin 1 mg PO DAILY rizatriptan 10 mg PO DAILY PRN romosozumab-aqqg (Evenity) 210 mg subcut Q28D sennosides (Senna Laxative) 17.2 mg (2 x 8.6 mg) PO BEDTIME sertraline 100 mg PO DAILY Shower Chair As directed spironolactone 25 mg PO DAILY tizanidine 4 mg PO BID PRN HPI Comments Details: 58-year-old female with an extensive medical history includes asthma, depression, bipolar disorder, hyperlipidemia, fibromyalgia, GERD, migraine, hyperthyroidism, thyroid cancer status post thyroidectomy, She has been referred for hypokalemia 2 years ago she had hypokalemia which was corrected. Recently she has had persistent hypokalemia. Potassium was in the low 2s. She was on chlorthalidone 25 mg a day. This was decreased to 12.5 mg and subsequently discontinued 3 weeks ago. The recent potassium was 4.4 millimoles per L on September 21. Serum chloride and bicarb levels were normal no alkalosis. Renal function has also been normal. She denies any polyuria or polydipsia. No history of any diarrhea. There is history of constipation. Currently she is on 8 tablets of potassium chloride. Of note she says not on diuretics at this time. However, daughter gave her some natural diuretics for edema She is on high dose of Amlodipine -10mg 12/25/23 c/o Cramps ;K was low ;KCL increased to 10 mg ;Not of diuretics ;Has leg edema - on Amlodipine 5 mg QD ;Urine K was high CTA - NO MAGDALENA 01/15/24 Feels better ;Edema resolved ;NO more cramps 02/15/2024. She was supposed to be on 8 tablets of potassium chloride but she is still taking 10 tablets. 06/24/24 c/o Pain in back for 2 months- waiting for scan ; Pain radiating down left left- on and off 10/31/24 c/o dysuria Occasional back pain PFSH Medical History Low vitamin B12 level Smoker Numbness Wheezing Chronic radicular pain of lower back Foot pain, bilateral Joint pain in both hands Breast pain Hypokalemia Breast pain, right Allergies Migraines Renal calculi Bipolar disorder Chronic abdominal pain Osteoporosis Hyperparathyroidism Multinodular thyroid Depression Fibromyalgia Thrombocytosis Leukocytosis GERD (gastroesophageal reflux disease) Thyroid cancer PONV (postoperative nausea and vomiting) Elevated cholesterol Difficulty swallowing Vitamin D deficiency Anxiety Pulmonary nodule Asthma HTN (hypertension) Surgical History H/O pyloroplasty (03/27/24) History of excision of mass Hx of thyroidectomy H/O esophagogastroduodenoscopy H/O colonoscopy History of bilateral oophorectomy Hx of cholecystectomy S/P excision of lipoma History of total abdominal hysterectomy Hx of appendectomy Family History Father Diabetes mellitus Skin cancer Prostate cancer Mother HTN (hypertension) High cholesterol Mental health disorder Maternal Grandfather Myocardial infarction Maternal Grandmother No problems noted. Paternal Grandfather No problems noted. Paternal Grandmother Breast cancer Sister Mental health disorder Social History Household Members: None Housing: Apartment Are you a primary urgent care physician assistant to a significant other at home: No Do you presently have visiting nurse or other home services: No Alcohol intake: never Patient Tobacco Use Status: Current everyday Tobacco user Tobacco use type: Cigarette Cigarettes Per Day: 5 Years Smoked: 20 e-Cigarette/Vaping Use: Never Used Second Hand Smoke Exposure: No Advance Directives Date on File: 10/05/16 service: No Current occupational status: disabled Sexual orientation: Straight/Heterosexual Gender identity: Female Cognitive needs: No Hearing needs: No Vision needs: No Physical Exam Vital Signs: Last Vital Signs Pulse 97 10/31/24 13:57 BP 110/76 10/31/24 13:57 Pulse Ox 97 10/31/24 13:57 Oxygen Delivery Method Room Air 10/31/24 13:57 BMI result Body Mass Index 28.0 Const General: cooperative and no acute distress Orientation/consciousness: patient oriented x3 Resp Effort & Inspection: normal respiratory effort and able to speak in complete sentences Neuro General: patient oriented x3 Cognition (Neuro): normal cognition Psych Appearance: grossly normal Mental Status: mental status grossly normal Speech and movement: Normal speech and movement present Affect: normal affect Attitude: cooperative Results Reviewed Nephrology Results: Hgb 16.1 g/dl (12.0-16.0) H 09/25/24 WBC 10.5 X10*3/uL (4.8-10.8) 09/25/24 Plt Count 414 X10*3/uL (160-400) H 09/25/24 Sodium 141 mmol/L (135-145) 10/29/24 Potassium 4.1 mmol/L (3.3-5.1) 10/29/24 Chloride 106 mmol/L (96-108) 10/29/24 Carbon Dioxide 25 mmol/L (22-29) 10/29/24 BUN 12 mg/dL (9-16) 10/29/24 Creatinine 0.73 mg/dL (0.5-1.4) 10/29/24 Calcium 10.1 mg/dL (8.4-10.2) 10/29/24 Assessment & Plan Assessment & Plan (1) HTN (hypertension): Code(s): I10 - Essential (primary) hypertension Category: Medical (2) Hypokalemia: Code(s): E87.6 - Hypokalemia Category: Medical (3) Dysuria: Code(s): R30.0 - Dysuria Category: Medical Plan Middle-aged woman with multiple medical problems comes in with significant hypokalemia. Initially she was on chlorthalidone with potassium supplementation. However after lowering chlorthalidone potassium was still significantly low. Currently she is on 100 mEq of potassium supplementation. No alkalosis. She does have hypertension. In the past she had plasma renin and aldosterone levels which were all in the normal range. Serum Aldosterone was 19 and plasma renin was elevated at 14 Causes include diuretic use, No evidence of renin producing tumor, or renal artery stenosis , based on CT SCAN AVOID chlorthalidone Keep Spironolactone 25 mg DAILY and watch K KCL (10 meq ) 3 tabs a day Dysuria Check urine c/s and renal sonogram Orders: Orders Urine Culture Today R30.0 - Dysuria Basic Metabolic Panel 2 Months E87.6 - Hypokalemia US renal BI Today E87.6 - Hypokalemia, R30.0 - Dysuria Medications: Changed From potassium chloride ER 10 mEq PO DAILY 30 caps 1RF E87.6 - Hypokalemia To potassium chloride ER 30 mEq PO DAILY E87.6 - Hypokalemia Coding Level of Care Code Est Pt Level 4 (63006) Diagnoses HTN (hypertension) I10 Hypokalemia E87.6 Dysuria R30.0
[2024-10-31 13:57] VITALS: BP 110/76; PULSE 97; O2SAT 97; BMI 28.0
--- OUTSIDE RECORDS SUMMARY | 2024-10-31 16:19 | XMS_ITS | Encounter Summary ---
Author Organization [employer] Address [address] [facility] 7t [place] [address] Care Team Providers Care Offset Lithographic Press Setter Name Role Phone Unavailable Primary Care Provider Unavailabl e Encounter Details Date Type Department Care Team (Latest Contact Info) Description 10/30/2024 Travel Social History Tobacco Use Types Packs/Day Years Used Date Smoking Tobacco: Every Day Cigarettes Smokeless Tobacco: Never Comments Unknown Sex and Gender Information Value Date Recorded Sex Assigned at Female 07/04/2022 10:24 AM EDT Legal Sex Female 10:24 AM EDT Gender Identity Female 01/19/2023 8:34 AM EDT Sexual Orientation Straight 01/19/2023 8: 34 AM EDT documented as of this encounter Plan of Treatment Upcoming Encounters Date Type Department Care Team (Late st Contact Info) Description 01/28/2025 1:00 PM EDT Office Visit [facility] OPTOMETRY [address] [place] [address] Pily Perkins, OD [address] [place] [address] documented as of this encounter Visit Diagnoses Not on filedocumented in this encounter
--- OUTSIDE RECORDS SUMMARY | 2024-10-31 16:19 | XMS_ITS | Encounter Summary ---
Author Organization [employer] Address [address] [facility] 7t [place] [address] Care Team Providers Care Oil Pipe Inspector Helper Name Role Phone Unavailable Primary Care Provider Unavailabl e Encounter Details Date Type Department Care Team (Late st Contact Info) Description 10/30/2024 3:45 PM EST Office Visit [facility] OPTOMETRY [address] [place] [address] Debby Escamilla, OD [address] [place] [address] Social History Tobacco Use Types Packs/Day Years [...] Description 01/28/2025 1:00 PM EDT Office Visit [facility] OPTOMETRY [address] [place] [address] Pily Perkins, OD [address] [place] [address] documented as of this encounter Visit Diagnoses Not on filedocumented in this encounter
--- OUTSIDE RECORDS SUMMARY | 2024-10-31 16:19 | XMS_ITS | Clinical Summary ---
Author Organization [employer] [facility] Address [address] [place] [address] Care Team Providers Care Real Estate Transaction Manager Name Role Phone Cr Madera MD Primary Care Provider [phone] Surgical History Surgery Date Site/Laterality Comments VENTRAL HERNIA REPAIR PROCEDURE: HISTORICAL VTRL WALL HERNIA RE APPENDECTOMY PROCEDURE: HISTORICAL APPENDECTOMY; COMMENT: w/ incisional hernia repair HYSTERECTOMY PROCEDURE: HISTORICAL TOTAL HYSTERECTOMY WITH BSO HERNIA REPAIR PROCEDURE: [place] REPAIR FIRST ABDOMINAL WALL HERNIA Medical History [...] age to complete this topic Care Teams Real Estate Transaction Manager Relationship Specialty Start Date End Date Cr Madera MD [address] [place] [address] PCP - General Internal Medicine 07/05/17
--- OUTSIDE RECORDS SUMMARY | 2024-10-31 16:19 | XMS_ITS | Clinical Summary ---
Author Organization [facility], Address [address] [place] [address] [place] [address] Phone Care Team Providers Care Medical Anthropologist Name Role Phone Raymundo Mcdonald NP Primary Care Provider [phone] Allergies Active Allergy Reactions Criticality Noted Date [...] patient's age to complete this topic Insurance [facility] MEDICAID Care Teams Medical Anthropologist Relationship Specialty Start Date End Date Raymundo Mcdonald NP [facility] [place] [address] PCP - General Nurse Practitioner 10/10/23
--- OUTSIDE RECORDS SUMMARY | 2024-10-31 16:19 | XMS_ITS | Clinical Summary ---
Author Organization [employer] Address [address] [facility] 7t [place] [address] Care Team Providers Care Multimedia Services Coordinator Name Role Phone Unavailable Primary Care Provider Unavailabl e Allergies Active Allergy Reactions Criticality Noted Date Comments Aspirin Anaphylaxis High 02/10/2023 Morphine Abdominal Pain 10/30/2024 Sulfa Antibiotics Anaphylaxis High 02/10/2023 Medications albuterol [...] Active Active Problems No known active problems Encounters Date Type Department Care Team Description 10/30/2024 3:45 PM EST Office Visit [facility] OPTOMETRY [address] [place] [address] Debby Escamilla OD 10/30/2024 Travel from Last 3 Months Social History Tobacco Use Types Packs/Day Years [...] Description 01/28/2025 1:00 PM EDT Office Visit [facility] OPTOMETRY [address] [place] [address] Pily Perkins, OD [address] [place] [address] Health Maintenance Due Date Last Done Comments CT Colonography 1967 Colonoscopy 1967 Colorectal Cancer Screening 1967 Depression Screening 1967 FIT DNA/Cologuard 1967 FIT 1967 FOBT 1967 HIV Screening 1967 Lipid Panel 1967 SDOH Screening 1967 Sigmoidoscopy 1967 Alcohol/Substance Use Screening 1979 Hepatitis C Screening 1985 DTaP/Tdap/Td Vaccines (1 - Tdap) 1986 Hepatitis B Vaccines (1 of 3 - 19+ 3-dose series) 1986 Pap Smear 1988 Cervical Cancer Screening 1997 HPV/Cotest 1997 Mammogram 2007 COVID-19 Vaccine ( - season) 2024 07/05/2021, 01/09/2021 Zoster Vaccines (2 of 2) 09/25/2024 07/31/2024 Tobacco Screening 10/30/2025 10/30/2024 RSV Patients and Patients Aged 60 years [...] patient's age to complete this topic Insurance [facility] [address] [place] [id number] [place] [id number] [place] [id number]
--- OUTSIDE RECORDS SUMMARY | 2024-10-31 16:19 | XMS_ITS | Encounter Summary ---
Author Organization [facility], Address [address] [place] [address] Phone Care Team Providers Care Light Armored Vehicle Officer Name Role Phone Raymundo Mcdonald NP Primary Care Provider [phone] Encounter Details Date Type Department Care Team (Late st Contact Info) Description 10/10/2023 Documentation Only [facility], [address] [place] [address] [place], [place] [address] [place] [address] Social History Tobacco Use Types [...] on filedocumented in this encounter Care Teams Light Armored Vehicle Officer Relationship Specialty Start Date End Date Raymundo Mcdonald NP [address] [place] [address] PCP - General Nurse Practitioner 10/10/23 documented as of this encounter
== END 2024-10-31 14:16 | disposition home or self-care (01) ==
PROVIDERS: PCP Nurse Practitioner Family; Visit Provider Internal Medicine Hypertension Specialist
DX: I10 Essential (primary) hypertension (principal); E87.6 Hypokalemia; R30.0 Dysuria
CPT/HCPCS: 99214

== ENCOUNTER → 2024-10-31 13:35 | Outpatient (BNVA) | payer OTHER, SELFPAY | PROVIDERS: PCP Nurse Practitioner Family; Visit Provider Internal Medicine Hypertension Specialist | DX: I10 Essential (primary) hypertension (principal); E87.6 Hypokalemia; R30.0 Dysuria | CPT/HCPCS: 99212 ==

== ENCOUNTER 2024-11-07 09:13 | Outpatient (REF) | payer OTHER, SELFPAY ==
--- NOTE | ~2024-11-07 | FL_ITS ---
EXAMINATION: Upper GI contrast study. CLINICAL INFORMATION: Unspecified abdominal pain. COMPARISON: None available. TECHNIQUE: Routine upper GI air contrast study was performed in upright view following oral administration of thick barium and effervescent granules. Patient was also placed in supine and prone lying positions per FINDINGS: Following oral administration of thick barium in upright views there is normal propagation bolus from the oral cavity through the pharynx, esophagus into stomach without any evidence of obstruction, narrowing narrowing or stricture. No laryngeal penetration or aspiration seen. On placing patient in supine and prone lying there is a large gastroesophageal reflux into the upper esophagus with a small sliding hiatal hernia. The mucosal pattern of the esophagus, stomach, duodenal bulb and the CBD is normal. The C-loop is normal in appearance. FLUOROSCOPY TIME: 1 minute 15 seconds DOSE AREA PRODUCT: 898 uGy-m2 (microgray-meter squared) FL/FL upper GI series IMPRESSION: Large gastroesophageal reflux with a small sliding hiatal hernia. Electronically signed by: Dillan Mendez MD 11/07/2024 11:12 AM RAQUEL
--- OUTSIDE RECORDS SUMMARY | 2024-11-07 10:14 | XMS_ITS | Clinical Summary ---
Author Organization [employer] [facility] Address [address] [place] [address] Care Team Providers Care Trim Line Worker Name Role Phone Cr Madera MD Primary Care Provider [phone] Surgical History Surgery Date Site/Laterality Comments VENTRAL [...] age to complete this topic Care Teams Trim Line Worker Relationship Specialty Start Date End Date Cr Madera MD [address] [place] [address] PCP - General Internal Medicine 07/05/17
--- OUTSIDE RECORDS SUMMARY | 2024-11-07 10:14 | XMS_ITS | Encounter Summary ---
Author Organization [employer] Address [address] [facility] 7t [place] [address] Care Team Providers Care Pharmaceutical Service Representative Name Role Phone Unavailable Primary Care Provider Unavailabl e Encounter Details Date Type Department Care Team (Late st Contact Info) Description 10/30/2024 3:45 PM EST Office Visit [facility] OPTOMETRY [address] [place], [place] [phone] Debby Escamilla, JONEL [address] [place] [address] Dry eyes, bilateral (Primary Dx) Social History Tobacco Use Types Packs/Day Years Used Date Smoking Tobacco: Every Day Cigarettes Smokeless Tobacco: Never Comments Unknown Sex and Gender Information Value Date Recorded Sex Assigned at Female 07/04/2022 10:24 AM EDT Legal Sex Female 10:24 AM EDT Gender Identity Female 01/19/2023 8:34 AM EDT Sexual Orientation Straight 01/19/2023 8: 34 AM EDT documented as of this encounter Progress Notes * Debby Escamilla, OD - 10/30/2024 3:45 PM EST Eye Care Progress Note Patient ID: Kita Chamberlain is a 59 y.o. female. HPI Patient reports itching and pressure sensation both eyes (OU) x 3 months. Patient also describes a curtain of blurriness that takes over vision and comes and goes with blinking. H/p osteoporosis, fibromyalgia, arthritis, neuropathy per pt. Patient is using a cane today throughout the office. Last edited by Debby Escamilla, OD on 11/01/2024 3:05 PM. Current Outpatient Medications Medication Sig Dispense Refill albuterol (2.5 MG/3ML) 0.083% nebulizer solution alendronate (Fosamax) 70 MG tablet TAKE 1 TABLET ORALLY EVERY WEEK FOR 4 WEEKS amitriptyline (Elavil) 25 MG tablet amLODIPine (Norvasc) 5 MG tablet Azelastine HCl 137 MCG/SPRAY solution chlorthalidone (Hygroton) 25 MG tablet Take 25 mg by mouth in the morning. cholecalciferol (Vitamin D3) 25 MCG (1000 UT) tablet Take by mouth in the morning. cyclobenzaprine (Flexeril) 10 MG tablet TAKE 1 TABLET BY MOUTH BEDTIME NEEDED FOR MUSCLE SPASM diclofenac (Voltaren) 50 MG EC tablet famotidine (Pepcid) 40 MG tablet Flovent HFA 110 MCG/ACT inhaler Inhale 1 puff 2 times daily. fluvoxaMINE (Luvox) 100 MG tablet gabapentin (Neurontin) 300 MG capsule GaviLAX 17 GM/SCOOP powder hydrOXYzine pamoate (Vistaril) 25 MG capsule TAKE 3 CAPSULE BY MOUTH THREE TIMES A DAY NEEDED lansoprazole (Prevacid) [address] capsule loratadine (Claritin) 10 MG tablet montelukast (Singulair) 10 MG tablet omega-3 acid ethyl esters (Lovaza) [address] 1 CAP ORALLY 2 TIMES A DAY FOR 90 DAYS omeprazole (PriLOSEC) [address] capsule ondansetron ODT (Zofran-ODT) 8 MG disintegrating tablet potassium chloride ER (Micro-K) 10 MEQ ER capsule TAKE 4 CAPS (40 MEQ) BY MOUTH DAILY prazosin (Minipress) 2 MG capsule TAKE 1 CAPSULE BY MOUTH EVERYDAY AT BEDTIME rizatriptan (Maxalt) 10 MG tablet TAKE 5-10MG EVERY 2HRS NEEDED FOR MIGRAINE FOR 21 DAYS MAX 2 TABS PER DAY OR 4 TABS PER WEEK Senna-Time 8.6 MG tablet SUMAtriptan (Imitrex) 100 MG tablet PLEASE SEE ATTACHED FOR DETAILED DIRECTIONS tiZANidine (Zanaflex) 4 MG tablet topiramate (Topamax) 25 MG tablet No current facility-administered medications for this visit. Past Medical History: Diagnosis Date Asthma Depression Fibromyalgia Hypertension Migraines History reviewed. No pertinent surgical history. No family history on file. Tobacco Use: High Risk (10/30/2024) Tobacco Smoking Tobacco Use: Every Day Smokeless Tobacco Use: Never Passive Exposure: Not on file Allergies Allergen Reactions Asa [Aspirin] Anaphylaxis Sulfa Antibiotics Anaphylaxis Morphine Abdominal Pain ROS Positive for: Eyes Negative for: Constitutional, Gastrointestinal, Neurological, Skin, Genitourinary, Musculoskeletal,HENT, Endocrine, Cardiovascular, Respiratory, Psychiatric, Allergic/Imm, Heme/Lymph Last edited by Debby Escamilla, OD on 10/30/2024 4:00 PM. Base Eye Exam Visual Acuity (Snellen - Linear) Right Left Dist cc 20//30 -2 20/25 Dist ph cc 20/20-3 20/20-3 Tonometry (iCare , 4:14 PM) Right Left Pressure 16 18 Pupils Pupils APD Right PERRL None Left PERRL None Visual Josehp (Counting fingers) Left Right Full Full Extraocular Movement Right Left Full Full Neuro/Psych Oriented x3: Yes Mood/Affect: Normal Slit Lamp and Fundus Exam External Exam Right Left External Normal Normal Slit Lamp Exam Right Left Lids/Lashes Normal Normal Conjunctiva/Sclera White and quiet, reduced TBUT White and quiet, reduced TBUT Cornea Clear Clear Anterior Chamber Deep and quiet, gr 2 angles Deep and quiet, gr 2 angles Iris Flat Flat Lens Clear Clear Fundus Exam Right Left Vitreous Clear Clear Disc Stanton and Distinct Stanton and Distinct C/D Ratio Vertical 0.3 0.35 C/D Ratio Horizontal 0.3 0.35 Assessment and Plan Diagnoses and all orders for this visit: Dry eyes, bilateral - Recommended the use of artificial tears in both eyes 1gtt 2-4x/day and warm compresses daily x 10mins RTC 3 months for CEE or sooner PRN Debby Escamilla, OD 11/01/2024, 4:45 PM Biology Lecturer Source: __ None __ Bilingual Staff __ Qualified Staff Program Development Specialist __ Telephone Biology Lecturer; ID# _x_ Biology Lecturer brought by patient (family member, friend, CHARGER TESTER, etc) __ In person healthcare interpreter __ Ipad Biology Lecturer; ID#: Language Spoken During Exam: Arabic documented in this encounter Plan of Treatment Upcoming Encounters Date Type Department Care Team (Late st Contact Info) Description 01/28/2025 1:00 PM EDT Office Visit [facility] OPTOMETRY [address] [place] [address] Pily Perkins, OD [address] [facility] [address] documented as of this encounter Visit Diagnoses Diagnosis Dry eyes, bilateral- Primary documented in this encounter
--- OUTSIDE RECORDS SUMMARY | 2024-11-07 10:14 | XMS_ITS | Encounter Summary ---
Author Organization [employer] Address [address] [facility] 7t [place] [address] Care Team Providers Care Intake Counselor Name Role Phone Unavailable Primary Care Provider [...] Description 01/28/2025 1:00 PM EDT Office Visit [facility] OPTOMETRY [address] [place] [address] Pily Perkins, OD [address] [place] [address] documented as of this encounter Visit Diagnoses Not on filedocumented in this encounter
--- OUTSIDE RECORDS SUMMARY | 2024-11-07 10:14 | XMS_ITS | Clinical Summary ---
Author Organization [facility], Address [address] [place] [address] [place] [address] Phone Care Team Providers Care Senior Microsoft Net Developer Name Role Phone Raymundo Mcdonald NP Primary Care Provider [phone] Allergies Active Allergy Reactions Criticality Noted Date [...] patient's age to complete this topic Insurance [facility] MEDICAID Care Teams Senior Microsoft Net Developer Relationship Specialty Start Date End Date Raymundo Mcdonald NP [facility] [place] [address] PCP - General Nurse Practitioner 10/10/23
--- OUTSIDE RECORDS SUMMARY | 2024-11-07 10:14 | XMS_ITS | Encounter Summary ---
Author Organization [facility], Address [address] [place] [address] Phone Care Team Providers Care Computer Designer Name Role Phone Raymundo Mcdonald NP Primary Care Provider [phone] Encounter Details Date Type Department Care Team (Late st Contact Info) Description 10/10/2023 Documentation Only [facility], [address] [place] [address] [place]na [place], [place] [address] [place] [address] Social History Tobacco Use Types [...] on filedocumented in this encounter Care Teams Computer Designer Relationship Specialty Start Date End Date Raymundo Mcdonald NP [address] [place] [phone] PCP - General Nurse Practitioner 10/10/23 documented as of this encounter
--- OUTSIDE RECORDS SUMMARY | 2024-11-07 10:14 | XMS_ITS | Clinical Summary ---
Author Organization [employer] Address 75 [facility] 7t [place] [address] Care Team Providers Care Labor Contract Analyst Name Role Phone Unavailable Primary Care Provider [...] Description 10/30/2024 3:45 PM EST Office Visit [facility] OPTOMETRY [address] [place] [address] Debby Escamilla, OD Dry eyes, bilateral (Primary Dx) 10/30/2024 Travel from Last 3 Months Social [...] Description 01/28/2025 1:00 PM EDT Office Visit [facility] OPTOMETRY [address] [place] [address] Pily Perkins, OD [address] [place] [address] Health Maintenance Due Date Last Done Comments [...] patient's age to complete this topic Insurance [facility] [address] [place] [id number]
== END 2024-11-07 09:14 | disposition home or self-care (01) ==
LOC: HO.XRAY 09:13
PROVIDERS: PCP Nurse Practitioner Family; Visit Provider Internal Medicine Gastroenterology
DX: R10.9 Unspecified abdominal pain (principal)
CPT/HCPCS: 74240

== ENCOUNTER → 2024-11-07 09:15 | Outpatient (BNV) | payer OTHER, SELFPAY | PROVIDERS: PCP Nurse Practitioner Family; Visit Provider Radiology Diagnostic Radiology | DX: K21.9 Gastro-esophageal reflux disease without esophagitis (principal); K44.9 Diaphragmatic hernia without obstruction or gangrene | CPT/HCPCS: 74246 ==

== ENCOUNTER 2024-11-21 14:03 | Outpatient (REF) | payer OTHER, SELFPAY ==
--- NOTE | ~2024-11-21 | US_ITS ---
EXAMINATION: US KIDNEY BILATERAL HISTORY: R30.0 - Dysuria TECHNIQUE: Real-time grayscale ultrasound imaging of the kidneys was performed and images were reviewed. COMPARISON: Correlation is made with a CT of the abdomen with contrast dated 12/20/2023. FINDINGS: Right kidney: The right kidney measures 10.1 x 4.1 x 5.9 cm. Renal parenchymal echotexture and thickness are normal. There are no masses. There is no hydronephrosis or renal calculi. Left Kidney: The left kidney measures 11.0 x 6.3 x 4.6 cm. Renal parenchymal echotexture and thickness are normal. There is a 1.1 x 1.0 x 1.1 cm cyst at the lower pole. There is no hydronephrosis or renal calculi. US/US renal BI IMPRESSION: 1.1 cm left lower pole renal cyst. Otherwise unremarkable renal ultrasound. Electronically signed by: Deuce Pierre MD 11/21/2024 03:14 PM EDT
--- NOTE | ~2024-11-21 | US_ITS ---
EXAMINATION: US THYROID HISTORY: Z85.850 - Personal history of malignant neoplasm of thyroid TECHNIQUE: Real-time grayscale ultrasound imaging was performed and images were reviewed. COMPARISON: Comparison is made with the prior examination dated 02/14/2024. FINDINGS: SIZE: The right thyroid lobe measures 5.7 x 2.6 x 2.0 cm. The left thyroid lobe is surgically absent. The isthmus measures 4 mm. FLOW: Flow to the gland is normal. ECHOGENICITY: The echotexture of the gland is homogeneous. NODULES: There are multiple right thyroid nodules as described below: Nodule #: 1 Location: Upper pole measuring 8 x 5 x 7 mm (previously 9 x 5 x 6 mm). Shape: Wider than tall (0 points) Margins: Smooth (0 points) Echotexture: Hypoechoic (2 points) Composition: Solid (2 points) Calcifications: None (0 points) Total points: 5 TIRADS: TR4: Moderately suspicious. Nodule #: 2 Location: Upper pole measuring 3 x 3 x 3 mm (previously 5 x 3 x 4 mm). Shape: Round (0 points) Margins: Smooth (0 points) Echotexture: n/a Composition: Spongiform (0 points) Calcifications: None (0 points) Total points: 0 TIRADS: TR1: Benign Nodule #: 3 Location: Upper pole measuring 2 x 1 x 2 mm, not seen previously Shape: Wider than tall (0 points) Margins: Smooth (0 points) Echotexture: Anechoic (0 points) Composition: Cystic (0 points) Calcifications: None (0 points) Total points: 0 TIRADS: TR1: Benign US/US thyroid IMPRESSION: Status post left thyroidectomy. Right thyroid nodules as described. ACR TI-RADS Guidelines TR1 (0 points): Benign, No follow-up or biopsy required TR2 (2 points): Not Suspicious, No biopsy or follow up indicated TR3 (3 points): Mildly Suspicious, FNA if >= 2.5 cm, Follow if >= 1.5 cm TR4 (4-6 points): Moderately Suspicious, FNA if >= 1.5 cm, Follow if >= 1.0 cm TR5 (>=7 points): Highly Suspicious, FNA if >= 1.0 cm, Follow if >= 0.5 cm Electronically signed by: Deuce Pierre MD 11/22/2024 08:36 AM EDT
--- OUTSIDE RECORDS SUMMARY | 2024-11-21 16:47 | XMS_ITS | Encounter Summary ---
Author Organization [employer] Address [address] [facility] 7t [place] [address] Care Team Providers Care Home Delivery Driver Name Role Phone Unavailable Primary Care Provider [...] [facility] OPT[facility] [address] [place] [address] Pily Perkins, OD [address] [place] [address] documented as of this encounter Visit Diagnoses Not on filedocumented in this encounter
--- OUTSIDE RECORDS SUMMARY | 2024-11-21 16:47 | XMS_ITS | Clinical Summary ---
Author Organization [employer] [facility] Address [address] [place] [address] Care Team Providers Care Lock And Dam Equipment Repairer Name Role Phone Cr Madera MD Primary Care Provider [phone] Surgical History Surgery Date Site/Laterality Comments VENTRAL HERNIA REPAIR PROCEDURE: HISTORICAL VTRL WALL HERNIA RE APPENDECTOMY PROCEDURE: HISTORICAL APPENDECTOMY; COMMENT: w/ incisional hernia repair HYSTERECTOMY PROCEDURE: HISTORICAL TOTAL HYSTERECTOMY WITH BSO HERNIA REPAIR PROCEDURE: MO REPAIR FIRST ABDOMINAL WALL HERNIA Medical History [...] age to complete this topic Care Teams Lock And Dam Equipment Repairer Relationship Specialty Start Date End Date Cr Madera MD [address] [place] [address] PCP - General Internal Medicine 07/05/17
--- OUTSIDE RECORDS SUMMARY | 2024-11-21 16:47 | XMS_ITS | Encounter Summary ---
Author Organization [employer] Address [address] [facility] 7t [place] [address] Care Team Providers Care Clinical Aide Name Role Phone Unavailable Primary Care Provider Unavailabl e Encounter Details Date Type Department Care Team (Late st Contact Info) Description 10/30/2024 3:45 PM EST Office Visit [facility] OPTOMETRY [address] [place], [place] [phone] Debby Escamilla, JONEL [address] [place] [address] Dry eyes, bilateral (Primary Dx) Social History [...] Right PERRL None Left PERRL None Visual Joseph (Counting fingers) Left Right Full Full Extraocular [...] Exam Right Left Vitreous Clear Clear Disc Farina and Distinct Farina and Distinct C/D Ratio Vertical 0.3 0.35 C/D Ratio Horizontal 0.3 0.35 Assessment and Plan Diagnoses and all orders for this visit: Dry eyes, bilateral - Recommended the use of artificial tears in both eyes 1gtt 2-4x/day and warm compresses daily x 10mins RTC 3 months for CEE or sooner PRN Debby Escamilla, OD 11/01/2024, 4:45 PM Management Coordinator Source: __ None __ Bilingual Staff __ Qualified Staff Taste Tester __ Telephone Management Coordinator; ID# _x_ Management Coordinator brought by patient (family member, friend, PET STYLIST, etc) __ In person spar machine operator helper __ Ipad Management Coordinator; ID#: Language Spoken During Exam: Finnish documented in this encounter Plan of Treatment Upcoming Encounters Date Type Department Care Team (Late st Contact Info) Description 01/28/2025 1:00 PM EDT Office Visit [facility] OPTOMETRY [address] [place] [address] Pily Perkins, OD [address] [facility] [place] [address] documented as of this encounter Visit Diagnoses Diagnosis Dry eyes, bilateral- Primary documented in this encounter
--- OUTSIDE RECORDS SUMMARY | 2024-11-21 16:47 | XMS_ITS | Clinical Summary ---
Author Organization [employer] Address [address] [facility] 7t [place] [address] Care Team Providers Care Miniature Set Designer Name Role Phone Unavailable Primary Care Provider [...] 3:45 PM EST Office Visit [facility] OPTOMETRY [address] [place] [address] Debby Escamilla, OD Dry eyes, bilateral (Primary [...] 1:00 PM EDT Office Visit [facility] OPTOMETRY [address] [place] [address] Pily Perkins, OD [address] [place] [address] Health Maintenance Due Date Last Done Comments [...] [facility] [address] [place] [address]
--- OUTSIDE RECORDS SUMMARY | 2024-11-21 16:47 | XMS_ITS | Clinical Summary ---
Author Organization [facility], Address [address] [place] [address] [place] [address] Phone Care Team Providers Care Revenue Analyst Name Role Phone Raymundo Mcdonald NP Primary Care Provider [phone] Allergies Active Allergy Reactions Criticality Noted Date [...] patient's age to complete this topic Insurance [facility] MEDICAID Care Teams Revenue Analyst Relationship Specialty Start Date End Date Raymundo Mcdonald NP [facility] [place] [address] PCP - General Nurse Practitioner 10/10/23
--- OUTSIDE RECORDS SUMMARY | 2024-11-21 16:47 | XMS_ITS | Encounter Summary ---
Author Organization [facility], Address [address] [place] [address] Phone Care Team Providers Care Manager Employee Relations Name Role Phone Raymundo Mcdonald NP Primary Care Provider [phone] Encounter Details Date Type Department Care Team (Late st Contact Info) Description 10/10/2023 Documentation Only [facility], [address] [place] [address] [place], [place] [address] [place] [address] Social History Tobacco Use Types [...] filedocumented in this encounter Care Teams Manager Employee Relations Relationship Specialty Start Date End Date Raymundo Mcdonald NP [address] [place] [address] PCP - General Nurse Practitioner 10/10/23 documented as of this encounter
== END 2024-11-21 14:04 | disposition home or self-care (01) ==
LOC: HO.HMGCX 14:03
PROVIDERS: PCP Nurse Practitioner Family; Visit Provider Student in an Organized Health Care Education/Training Program
DX: E04.2 Nontoxic multinodular goiter (principal); R30.0 Dysuria; E87.6 Hypokalemia; Z85.850 Personal history of malignant neoplasm of thyroid
CPT/HCPCS: 76536; 76775; 99212

== ENCOUNTER 2024-11-21 14:24 | Outpatient (AMB) | payer OTHER, SELFPAY ==
--- NOTE | 2024-11-21 14:33 | AM.OFFWIN_ITS ---
Intake Vital Signs 11/21/24 14:36 Height 5 ft 3 in Weight 161 lb BMI 28.5 BP 120/90 H Blood Pressure Location Rt brachial Position Sitting Pulse 72 Pulse Source Pulse Oximeter Pulse Oximetry (%) 98 Oxygen Delivery Method Room Air Intake Visit Reasons: EP severe back pain, legs numbness Intake Note: Patient here for severe back pain and leg numbness that has flared up. She states the other day her legs were so numb that she was on the toilet for 3 hours until she could get the strength to get back up. Patient Tobacco Use Status: Current everyday Tobacco user Allergies Sulfa (Sulfonamide Antibiotics) [SULFA (SULFONAMIDE ANTIBIOTICS)] Allergy (Intermediate, Verified 11/21/24 14:35) HIVES Latex, Natural Rubber Allergy (Mild, Verified 11/21/24 14:35) Rash egg Allergy (Verified 11/21/24 14:35) Abdominal Pain strawberry Allergy (Verified 11/21/24 14:35) Abdominal Pain aspirin [ASPIRIN] Adverse Reaction (Intermediate, Verified 11/21/24 14:35) ABD PAIN morphine [MORPHINE] Adverse Reaction (Intermediate, Verified 11/21/24 14:35) Abdominal Pain almond Allergy (Severe, Uncoded 11/21/24 14:35) Stomack pain Lactose intollerance Allergy (Severe, Uncoded 11/21/24 14:35) Stomach pain, nausceau Do you need a note to return to daycare/school/sports/work: No HPI HPI Comments History of Present Illness Details 59 y/o female patient who presents to [facility] in clinic with c/o Severe Lower back pain associated with B/L lower extremity numbness and weakness. This is a chronic issue; currently sees Pain management (Last Seen 10/2024) where she was scheduled for bilateral diagnostic sacroiliac joint injections with local and fluoroscopy. Pt reports that she missed the appointment and needed to reschedule for December 05. Lumbar imaging done 08/2024 showed: IMPRESSION: Minimal degenerative disc disease at T11 through L1. [facility], [facility] Medical History Low vitamin B12 level Smoker Numbness Wheezing Chronic radicular pain of lower back Foot pain, bilateral Joint pain in both hands Breast pain Hypokalemia Breast pain, right Allergies Migraines Renal calculi Bipolar disorder Chronic abdominal pain Osteoporosis Hyperparathyroidism Multinodular thyroid Depression Fibromyalgia Thrombocytosis Leukocytosis GERD (gastroesophageal reflux disease) Thyroid cancer PONV (postoperative nausea and vomiting) Elevated cholesterol Difficulty swallowing Vitamin D deficiency Anxiety Pulmonary nodule Asthma HTN (hypertension) Surgical History H/O pyloroplasty (03/27/24) History of excision of mass Hx of thyroidectomy H/O esophagogastroduodenoscopy H/O colonoscopy History of bilateral oophorectomy Hx of cholecystectomy S/P excision of lipoma History of total abdominal hysterectomy Hx of appendectomy Family History Father Diabetes mellitus Skin cancer Prostate cancer Mother HTN (hypertension) High cholesterol Mental health disorder Maternal Grandfather Myocardial infarction Maternal Grandmother No problems noted. Paternal Grandfather No problems noted. Paternal Grandmother Breast cancer Sister Mental health disorder Social History Household Members: None Housing: Apartment Are you a primary critical care transport nurse to a significant other at home: No Do you presently have visiting nurse or other home services: No Alcohol intake: never Patient Tobacco Use Status: Current everyday Tobacco user Tobacco use type: Cigarette Cigarettes Per Day: 5 Years Smoked: 20 e-Cigarette/Vaping Use: Never Used Second Hand Smoke Exposure: No Advance Directives Date on File: 10/05/16 service: No Current occupational status: disabled Sexual orientation: Straight/Heterosexual Gender identity: Female Cognitive needs: No Hearing needs: No Vision needs: No Review of Systems Const All systems reviewed & are unremarkable except as noted in HPI and below Physical Exam Vital Signs: Last Vital Signs Pulse 72 11/21/24 14:36 BP 120/90 H 11/21/24 14:36 Pulse Ox 98 11/21/24 14:36 Oxygen Delivery Method Room Air 11/21/24 14:36 BMI result Body Mass Index 28.5 Const General: cooperative and no acute distress Nutritional Appearance: overweight Orientation/consciousness: patient oriented x3 Limitations: ambulation with cane Back/Spine/Pelvis Back: back tenderness Thoracic/Lumbar Spine: pain with thoraco-lumbar ROM, thoraco-lumbar ROM limited, thoracic spinal tenderness and lumbar spinal tenderness Neuro General: patient oriented x3 and moves all extremities Assessment & Plan Assessment & Plan (1) Spondylosis of thoracolumbar spine: Code(s): M47.815 - Spondylosis without myelopathy or radiculopathy, thoracolumbar region Plan: Advised to call Pain management clinic to see if there Cancellation. Advised to go to ED if pain worse. Advised to take Acetaminophen or NSAIDs for pain relief. Pt currently takes Gabapentin, Tizadipine, Diclofenac Oral and topical Gel. Coding Level of Care Code Est Pt Level 4 (34166) Diagnoses Spondylosis of thoracolumbar spine M47.815 Time Spent (min) 20
[2024-11-21 14:36] VITALS: BP 120/90; PULSE 72; O2SAT 98; BMI 28.5
== END 2024-11-21 15:17 | disposition home or self-care (01) ==
PROVIDERS: PCP Nurse Practitioner Family; Visit Provider Nurse Practitioner Family
DX: M47.815 Spondylosis without myelopathy or radiculopathy, thoracolumbar region (principal)

== ENCOUNTER 2024-11-25 09:00 | Outpatient (AMB) | payer OTHER, SELFPAY ==
--- NOTE | 2024-11-25 09:05 | A.OFFVIS_ITS ---
Vital Signs 11/25/24 09:12 Height 5 ft 3 in Weight 161 lb 6 oz BMI 28.6 BP 130/68 Blood Pressure Location Rt brachial Position Sitting Pulse 95 Pulse Source Pulse Oximeter Pulse Oximetry (%) 98 Oxygen Delivery Method Room Air Intake Visit Reasons: Back Pain Intake Note: Pain today 06/13 Pile Driving Technician Required: Yes Pile Driving Technician Language: Carpenter Inspector Services: Pile Driving Technician Present Pile Driving Technician Name: Shannon #[id number] Accompanied by: Self / Same As Patient Allergies Sulfa (Sulfonamide Antibiotics) [SULFA (SULFONAMIDE ANTIBIOTICS)] Allergy (Intermediate, Verified 11/25/24 09:12) HIVES Latex, Natural Rubber Allergy (Mild, Verified 11/25/24 09:12) Rash egg Allergy (Verified 11/25/24 09:12) Abdominal Pain strawberry Allergy (Verified 11/25/24 09:12) Abdominal Pain aspirin [ASPIRIN] Adverse Reaction (Intermediate, Verified 11/25/24 09:12) ABD PAIN morphine [MORPHINE] Adverse Reaction (Intermediate, Verified 11/25/24 09:12) Abdominal Pain almond Allergy (Severe, Uncoded 11/21/24 14:35) Stomack pain Lactose intollerance Allergy (Severe, Uncoded 11/21/24 14:35) Stomach pain, nausceau HPI Comments Details: The patient is a 59-year-old female presenting with numbness in her legs. She reports an acute episode, occurring around or Monday last week, resulted in the urgent care visit due to significant concern with inability to stand and weakness with significant low back pain. She was confined to her bathroom for approximately 2 hours due to her inability to stand during the incident. This presentation is different from her typical chronic back pain, which she notes is normally localized on the left side in the L5-S1 distribution and sometimes involving the right side as well as sacroiliac joint pain. She recently missed her bilateral diagnostic SIJ injections and is rescheduled for 12/05/24. Patient denies previous lumbar spine MRI and denies any recent MRI order at Urgent clinic with development of acute leg numbness and weakness, gait impairment to assess potential spinal or neurological involvement. - Onset and Timing: Chronic back pain and fibromyalgia; new numbness in legs occurring recently - Quality and Character: Numbness preventing prolonged standing, throbbing, shooting, radiating - Location: Left L5-S1 distribution, sometimes involving right side - Areas of Radiation: Back to front of left leg with numbness dorsal aspect of left foot - Exacerbating Factors: Movements, bending, lifting, walking, prolonged standing - Relieving Factors: None, minimal relief with NSAIDs, gabapentin, heat, rest - Interference: Prevents standing or walking, impacts mobility and ADLs - Affect: Patient expressed fear and worry due to new numbness affecting her daily life - Analgesia: Current medications include gabapentin, clonazepam, diclofenac sodium, and amitriptyline - Adverse Effects: History of liver cyst which can influence tizanidine usage - Activities of Daily Living: Numbness severely impacts ability to stand and walk - Aberrant Drug-Related Behaviors: None reported PRIOR: Patient presents today for follow up after physical therapy. Patient reports she was able to complete 4 weeks of PT without significant improvement in her functioning, mobility, or sleep. She continues to endorse neck, mid and lower back pain with radiation into her buttocks and lateral hips. She ambulates with cane. Recent cervical and lumbar spine imaging are noted below. Patient is interested to proceed with diagnostic sacroiliac joint injections as initial steps. Denies any recent cough, cold, infection, fever or any significant changes in medical history since last office visit. PRIOR: Patient is a 59 years old Azeri speaking female with history of fibromyalgia, polyarthralgia, chronic pain syndrome, osteoporosis (Evenity, repeat bone scan 2024), thyroid cancer s/p thyroidectomy, Bipolar disorder, depression, presents today for initial evaluation of low back pain and widespread body pain due to fibromyalgia. 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 Denies any recent trauma, injury or falls. History of fall in June 2023 due to left knee pain related to instability. Patient was previously seen at [facility] and completed formal course of physical therapy and underwent multiple injections 2-3 years ago with mixed results. She was referred to our office by her PCP for lumbar radiculopathy and was ordered lumbar spine MRI which was denied by her insurance. Back pain is axial and radiates to upper and lower extremities per patient. She also reports chronic right upper back pain with shooting pain down into her lower back. Pain is present with activity and rest and flares up with any movement, stress or weather changes. Pain is constant and is rated at 10/10. Patient reports tramadol and gabapentin allow her to be less symptomatic and more functional. Reports previous courses of PT for shoulder and knee pain were ineffective but willing to undergo PT for back and neck pain. Denies any fever or chills, abdominal or groin pain, weakness, footdrop, bladder or bowel dysfunction or saddle anesthesia. Patient follows with Endocrinology and Rheumatology services. Location: Lower back, right upper back, widespread body pain Duration: Chronic pain for couple years Characteristics of symptom or complaint: Aching, numbness, tingling, spasming, shooting, tiring, radiating, heavy, Aggravating or associated factors: Prolonged walking or sitting, cold weather, movements, ADLs, stress Relieving factors: Tramadol, gabapentin, heat therapy, activity modifications, rest Treatment: PT, injections at [facility] Medical History Low vitamin B12 level Smoker Numbness Wheezing Chronic radicular pain of lower back Foot pain, bilateral Joint pain in both hands Breast pain Hypokalemia Breast pain, right Allergies Migraines Renal calculi Bipolar disorder Chronic abdominal pain Osteoporosis Hyperparathyroidism Multinodular thyroid Depression Fibromyalgia Thrombocytosis Leukocytosis GERD (gastroesophageal reflux disease) Thyroid cancer PONV (postoperative nausea and vomiting) Elevated cholesterol Difficulty swallowing Vitamin D deficiency Anxiety Pulmonary nodule Asthma HTN (hypertension) Surgical History H/O pyloroplasty (03/27/24) History of excision of mass Hx of thyroidectomy H/O esophagogastroduodenoscopy H/O colonoscopy History of bilateral oophorectomy Hx of cholecystectomy S/P excision of lipoma History of total abdominal hysterectomy Hx of appendectomy Family History Father Diabetes mellitus Skin cancer Prostate cancer Mother HTN (hypertension) High cholesterol Mental health disorder Maternal Grandfather Myocardial infarction Maternal Grandmother No problems noted. Paternal Grandfather No problems noted. Paternal Grandmother Breast cancer Sister Mental health disorder Social History Household Members: None Housing: Apartment Are you a primary healthcare prof to a significant other at home: No Do you presently have visiting nurse or other home services: No Alcohol intake: never Patient Tobacco Use Status: Current everyday Tobacco user Tobacco use type: Cigarette Cigarettes Per Day: 5 Years Smoked: 20 e-Cigarette/Vaping Use: Never Used Second Hand Smoke Exposure: No Advance Directives Date on File: 10/05/16 service: No Current occupational status: disabled Sexual orientation: Straight/Heterosexual Gender identity: Female Cognitive needs: No Hearing needs: No Vision needs: No Review of Systems Const All systems reviewed & are unremarkable except as noted in HPI and below Physical Exam General: Appears afebrile. Alert and oriented. Mood and affect appropriate. Follows and participates in conversation appropriately. Respiratory effort is unlabored. No cough. Able to transition from sit to stand unassisted. Ambulates with cane. Ambulates with bilaterally normal heel strike and toe off, reports pain increase on the left with heel/toe standing. General: Yes no CVA tenderness Back/Spine/Pelvis Other: Limited lumbar ROM due to pain. Lumbar extension, bending forward and flexion reproduces moderate-severe pain. Multiple widespread TTPs 16/16 bilaterally, including upper and lower extremities.?Demonstrates 5/5 right and 4/5 left strength of quadriceps bilaterally as well as flexion/dorsiflexion of bilateral feet against resistance. 2+ pedal pulses bilaterally. Straight leg rise with dorsiflexion negative bilaterally. +1 patellar and achilles reflexes bilaterally. Facet loading test positive bilaterally. Gabby sign, Herrera?s, Gaenslen, Pelvic compression and Stinchfield tests are positive bilaterally. No groin pain with I/E hip rotations. Valsalva maneuver is positive. Back: no CVA tenderness Cervical Spine: cervical ROM normal, cervical muscular tenderness, pain with cervical ROM, No Cervical spine tenderness and No step off deformity Thoracic/Lumbar Spine: thoracic and lumbar spine normal to inspection, No Thoracic/lumbar spine scar(s), Lasegue's sign positive on the left and localized, pain with thoraco-lumbar ROM, paraspinal muscle tenderness, thoraco- lumbar ROM limited, No thoracic spinal tenderness and lumbar spinal tenderness (L4-S1) Pelvis: buttock tenderness bilaterally Sacroiliac joints: bilaterally tender to palpation Extrem General: Yes capillary refill normal, Yes no clubbing, cyanosis or edema and Yes no calf tenderness Results Reviewed Results Reviewed: XR LUMBAR SPINE 08/05/25 CLINICAL INFORMATION: Radiculopathy, lumbar region M54.16. COMPARISON: None available. TECHNIQUE: 5 views of lumbar spine. FINDINGS: Normal vertebral body alignment. The lumbar lordosis is maintained. No acute fracture or subluxation. No loss of vertebral body height or intervertebral disc height. Tiny anterior endplate osteophytes at T11 through L1. No concerning lytic or blastic osseous lesion. Right upper quadrant surgical clips. Surgical coils overlying the anterior pelvic wall. No abnormal soft tissue calcification. IMPRESSION: Minimal degenerative disc disease at T11 through L1. XR CERVICAL SPINE 08/05/24 CLINICAL INFORMATION: Age-related osteoporosis without current pathological fracture M81.0. COMPARISON: XR Cervical spine without flexion/extension 08/16/2022 TECHNIQUE: 6 views of the cervical spine, inclusive of flexion and extension views, were obtained. FINDINGS: The vertebral alignment is normal. No intrinsic bony abnormality. No fracture or subluxation. Degenerative changes with disc space narrowing and osteophyte formation is seen at C5/6 and C6/7. Posterior facet joints appear well-maintained. No significant neural foraminal osseous encroachment. Surgical clips are seen in the paratracheal soft tissues The surrounding prevertebral soft tissues are otherwise unremarkable. IMPRESSION: Degenerative disc disease at C5/6 and C6/7. XR DEXA appendicular skeleton 08/12/24 IMPRESSION: 1. DIAGNOSIS: Osteoporosis based on the lowest T-score value of -3.5 in the lumbar spine applying World Health Organization criteria. Assessment & Plan Assessment & Plan (1) Lumbosacral spondylosis: Code(s): M47.817 - Spondylosis without myelopathy or radiculopathy, lumbosacral region Category: Medical (2) Lumbar radiculopathy: Code(s): M54.16 - Radiculopathy, lumbar region Category: Medical (3) Sacroiliac joint pain: Code(s): M53.3 - Sacrococcygeal disorders, not elsewhere classified Category: Medical (4) Lumbar degenerative disc disease: Code(s): M51.369 - Other intervertebral disc degeneration, lumbar region without mention of lumbar back pain or lower extremity pain Category: Medical Plan An urgent MRI has been ordered to evaluate the potential causes of the new leg numbness, while scheduled sacroiliac joint injections will proceed in December to manage chronic SI joint and low back pain. We verified her medications, including concerns over Tizanidine in relation to her chronic liver cyst which she reports has been present for several years and she has been taking tizanidine on as needed basis only. She continues to take gabapentin, clonazepam, and diclofenac sodium prescribed by her other providers. All questions and concerns have been answered and patient agreed with the treatment plan. Follow-up is planned to assess injections, review MRI and further treatment. Patient was informed and verbally consented to the use of an ambient scribe for clinic note documentation during this visit. Orders: Orders MR lumbar spine wo con Today M47.817 - Spondylosis without myelopathy or radiculopathy, lumbosacral region, M54.16 - Radiculopathy, lumbar region Medications: Refilled tizanidine 4 mg PO BID PRN 30 tabs 1RF for muscle spasm Patient Instructions: I discussed the potential causes of her new leg numbness and the necessity for an urgent MRI to provide a clearer understanding of any spinal or neurological issues. Explained the sacroiliac joint injections aim to alleviate pain in her chronic lower back and buttock pain with new onset of overlapping radicular symptoms, scheduled for early December. The risks of Tizanidine with her liver cyst were reviewed, advising judicious use due to its impact on liver function and potential blood pressure effects. The importance of this planned MRI and follow- up care was emphasized, ensuring understanding of possible interventional and surgical options, should conservative management be inadequate. We confirmed prescriptions for her current medications and discussed future pain management strategies contingent on diagnostic findings. - Schedule and complete the MRI as ordered. - Proceed with sacroiliac joint injections as planned during the first week of December. - Use Tizanidine sparingly and monitor for any side effects. - Continue current medications as prescribed. - Return for follow-up after MRI to discuss results and further management. - Seek immediate care if leg numbness worsens or new symptoms arise. Coding Level of Care Code Est Pt Level 4 (28357) Complex EM visit Add On G2211 Diagnoses Lumbosacral spondylosis M47.817 Lumbar radiculopathy M54.16 Sacroiliac joint pain M53.3 Lumbar degenerative disc disease M51.369
[2024-11-25 09:12] VITALS: BP 130/68; PULSE 95; O2SAT 98; BMI 28.6
== END 2024-11-25 09:28 | disposition home or self-care (01) ==
LOC: HO.PMC 09:01
PROVIDERS: PCP Nurse Practitioner Family; Visit Provider Nurse Practitioner Family
DX: M47.817 Spondylosis without myelopathy or radiculopathy, lumbosacral region (principal); M54.16 Radiculopathy, lumbar region; M53.3 Sacrococcygeal disorders, not elsewhere classified; M51.369 Other intervertebral disc degeneration, lumbar region without mention of lumbar back pain or lower extremity pain
CPT/HCPCS: 99214; G2211

== ENCOUNTER → 2024-11-25 09:00 | Outpatient (BNVA) | payer OTHER, SELFPAY | PROVIDERS: PCP Nurse Practitioner Family; Visit Provider Nurse Practitioner Family | DX: M54.16 Radiculopathy, lumbar region (principal); M47.817 Spondylosis without myelopathy or radiculopathy, lumbosacral region; M79.7 Fibromyalgia; M53.3 Sacrococcygeal disorders, not elsewhere classified; M51.360 Other intervertebral disc degeneration, lumbar region with discogenic back pain only; G89.29 Other chronic pain | CPT/HCPCS: 99212 ==

== ENCOUNTER 2024-12-03 15:14 | Outpatient (AMB) | payer OTHER, SELFPAY ==
--- NOTE | 2024-12-03 15:44 | AM.OFFVISNUR ---
Intake Visit Reasons: Evenity #9 Allergies Sulfa (Sulfonamide Antibiotics) [SULFA (SULFONAMIDE ANTIBIOTICS)] Allergy (Intermediate, Verified 11/25/24 09:12) HIVES Latex, Natural Rubber Allergy (Mild, Verified 11/25/24 09:12) Rash egg Allergy (Verified 11/25/24 09:12) Abdominal Pain strawberry Allergy (Verified 11/25/24 09:12) Abdominal Pain aspirin [ASPIRIN] Adverse Reaction (Intermediate, Verified 11/25/24 09:12) ABD PAIN morphine [MORPHINE] Adverse Reaction (Intermediate, Verified 11/25/24 09:12) Abdominal Pain almond Allergy (Severe, Uncoded 11/21/24 14:35) Stomack pain Lactose intollerance Allergy (Severe, Uncoded 11/21/24 14:35) Stomach pain, nausceau Office Meds romosozumab-aqqg 210 mg/2.34 mL(105 mg/1.17 mL x2)subcutaneous syringe Performing Provider: Deuce Valdes MD [place] [facility] [place] Administered by: Debby Terrazas RN on 12/03/24 15:30 Dose Route Admin Location Dispensed Lot Number Expiration Date NDC Stamping Machine Operator 210 mg subcut bilateral upper arms 2.34 mL [id number] 12/02/26 96742-192-67 [facility] Comments: Visit interpreted by Rachel ROBISON. Pt tolerated injection well and denies any adverse reactions with previous injections. Assessment & Plan Assessment & Plan Orders: Orders AMB Romosozumab Injection Patient Supplied Today M81.0 - Age-related osteoporosis without current pathological fracture Medications: New romosozumab-aqqg 210 mg (2.34 mL) subcut ONCE 2.34 mL 0RF M81.0 - Age-related osteoporosis without current pathological fracture Coding
--- OUTSIDE RECORDS SUMMARY | 2024-12-03 18:05 | XMS_ITS | Clinical Summary ---
Author Organization [facility] Address [address] [place] [address] Care Team Providers Care Production Cloth Cutter Name Role Phone Cr Madera MD Primary Care Provider [phone] Surgical History Surgery Date Site/Laterality Comments VENTRAL [...] age to complete this topic Care Teams Production Cloth Cutter Relationship Specialty Start Date End Date Cr Madera MD [address] [place] [address] PCP - General Internal Medicine 07/05/17
--- OUTSIDE RECORDS SUMMARY | 2024-12-03 18:05 | XMS_ITS | Clinical Summary ---
Author Organization [facility], Address [address] [place] [address] [place] [address] Phone Care Team Providers Care Bleach Boiler Filler Name Role Phone Raymundo Mcdonald NP Primary Care Provider [phone] Allergies Active Allergy Reactions Criticality Noted Date [...] patient's age to complete this topic Insurance [facility] MEDICAID Care Teams Bleach Boiler Filler Relationship Specialty Start Date End Date Raymundo Mcdonald NP [facility] [place] [address] PCP - General Nurse Practitioner 10/10/23
--- OUTSIDE RECORDS SUMMARY | 2024-12-03 18:05 | XMS_ITS | Clinical Summary ---
Author Organization [employer] [facility] Address [address] [facility] [address] [place] [address] Care Team Providers Care Rn Plasma Center Name Role Phone Unavailable Primary Care Provider [...] EST Office Visit [facility] [address] [place] [id number] Debby Escamilla, OD Dry eyes, bilateral (Primary [...] Office Visit [facility] [address] [place] [address] Pily Perkins, OD [address] [place] [address] Health Maintenance Due Date Last Done Comments [...] patient's age to complete this topic Insurance [facility] [address] [place] [id number]
--- OUTSIDE RECORDS SUMMARY | 2024-12-03 18:05 | XMS_ITS | Encounter Summary ---
Author Organization [facility], Address [address] [place] [address] Phone Care Team Providers Care Switchboard Operator Assistant Name Role Phone Raymundo Mcdonald NP Primary Care Provider [phone] Encounter Details Date Type Department Care Team (Late st Contact Info) Description 10/10/2023 Documentation Only [facility], [address] [place] [address] [place]na Simpson[place], [place] [address] [place] [address] Social History Tobacco Use Types [...] on filedocumented in this encounter Care Teams Switchboard Operator Assistant Relationship Specialty Start Date End Date Raymundo Mcdonald NP [address] [place] [address] PCP - General Nurse Practitioner 10/10/23 documented as of this encounter
== END 2024-12-03 15:35 | disposition home or self-care (01) ==
LOC: HO.ENCR 15:16
PROVIDERS: PCP Nurse Practitioner Family; Visit Provider Internal Medicine Endocrinology, Diabetes & Metabolism
DX: M81.0 Age-related osteoporosis without current pathological fracture (principal)

== ENCOUNTER → 2024-12-03 15:14 | Outpatient (BNVA) | payer OTHER, SELFPAY | PROVIDERS: PCP Nurse Practitioner Family; Visit Provider Internal Medicine Endocrinology, Diabetes & Metabolism | DX: M81.0 Age-related osteoporosis without current pathological fracture (principal) | CPT/HCPCS: 96372; J3111 ==

== ENCOUNTER 2024-12-04 17:18 | Outpatient (REF) | payer OTHER, SELFPAY ==
--- NOTE | ~2024-12-04 | MR_ITS ---
EXAMINATION: MR LUMBAR SPINE WITHOUT CONTRAST CLINICAL INFORMATION: Spondylosis without myelopathy or radiculopathy, lumbar spine COMPARISON: None available. TECHNIQUE: MRI of the lumbar spine was obtained using routine sequences without contrast. FINDINGS: Last rib-bearing vertebra labeled T12. No bone marrow STIR signal abnormality. Bone marrow inhomogeneity throughout the axial skeleton and bony pelvis. Disc desiccation, L5-S1 and to a lesser extent L4-5. There is normal alignment. The conus medullaris ends at pedicle of L1 with normal signal. T12-L1: No disc herniation. No neuroforamina stenosis. L1-2: No disc herniation. No neuroforamina stenosis. L2-3: Broad-based disc bulging. Facet joint hypertrophy. No compression upon neural elements. L3-4: Broad-based disc bulging. Facet joint hypertrophy. No compression upon neural elements. L4-5: Broad-based disc bulging. Facet joint and ligamentum flavum hypertrophy. Reduced AP diameter of the thecal sac and the neural foramina. No compression upon neural elements. L5-S1: There is a right foraminal broad-based disc herniation abutting the right S1 nerve root. Facet joint hypertrophy. Right neuroforamina narrowing. No prevertebral compartment hematoma, mass or fluid collection. Hyperintense T2/cystic lesion in the left kidney. MR/MR lumbar spine wo con IMPRESSION: Right foraminal broad-based disc herniation L5-S1 abutting the right S1 nerve root on its lateral recess and likely encroaching right L5. Spondylosis at L4-5 without compression upon neural elements. Calcium metabolic disorder/osteopenia versus osteoporosis. Electronically signed by: Jaden Key MD 12/05/2024 08:10 AM EDT
--- OUTSIDE RECORDS SUMMARY | 2024-12-04 18:13 | XMS_ITS | Clinical Summary ---
Author Organization [employer] [employer] Address [address] [facility] [address] [place] [address] Care Team Providers Care Surveyor Helper Name Role Phone Unavailable Primary Care [...] 3:45 PM EST Office Visit [facility] [address] [place] [address] Debby Escamilla, OD Dry eyes, bilateral (Primary [...] 1:00 PM EDT Office Visit [facility] [address] [place] [address] Pily Perkins, OD [address] [place] [address] Health Maintenance Due Date Last Done Comments [...] [facility] [address] [place] [id number]
--- OUTSIDE RECORDS SUMMARY | 2024-12-04 18:13 | XMS_ITS | Encounter Summary ---
Author Organization [facility], Address [address] [place] [address] Phone Care Team Providers Care Flap Presser Name Role Phone Raymundo Mcdonald NP Primary Care Provider [phone] Encounter Details Date Type Department Care Team (Late st Contact Info) Description 10/10/2023 Documentation Only [facility], [address] [place] [address] [place], [place] [address] [place] [address] Social History Tobacco Use Types [...] on filedocumented in this encounter Care Teams Flap Presser Relationship Specialty Start Date End Date Raymundo Mcdonald NP [address] [place] [address] PCP - General Nurse Practitioner 10/10/23 documented as of this encounter
--- OUTSIDE RECORDS SUMMARY | 2024-12-04 18:13 | XMS_ITS | Clinical Summary ---
Author Organization [facility] Address [address] [place] [address] Care Team Providers Care Network Developer Name Role Phone Cr Madera MD Primary Care Provider Surgical History Surgery Date Site/Laterality Comments VENTRAL HERNIA REPAIR PROCEDURE: HISTORICAL VTRL WALL HERNIA RE APPENDECTOMY PROCEDURE: HISTORICAL APPENDECTOMY; COMMENT: w/ incisional hernia repair HYSTERECTOMY PROCEDURE: HISTORICAL TOTAL HYSTERECTOMY WITH BSO HERNIA REPAIR PROCEDURE: FL REPAIR FIRST ABDOMINAL WALL HERNIA Medical History [...] age to complete this topic Care Teams Network Developer Relationship Specialty Start Date End Date Cr Madera MD [address] [place] [address] PCP - General Internal Medicine 07/05/17
--- OUTSIDE RECORDS SUMMARY | 2024-12-04 18:13 | XMS_ITS | Clinical Summary ---
Author Organization [facility], Address [address] [place] [address] [place] [address] Phone Care Team Providers Care Hinging Machine Operator Name Role Phone Raymundo Mcdonald NP Primary Care Provider [phone] Allergies Active Allergy Reactions Criticality Noted Date [...] Colorectal Cancer Screening: Sigmoidoscopy 2016 Influenza Vaccine (Season Ended) 2025 Pneumococcal Vaccine: Pediat rics (0 to 5 Years) and At-Risk Patients (6 to 64 Years) Aged Out No longer eligible b ased on patient's age to complete this topic Insurance [facility] MEDICAID Care Teams Hinging Machine Operator Relationship Specialty Start Date End Date Raymundo Mcdonald NP [facility] [place] [address] PCP - General Nurse Practitioner 10/10/23
== END 2024-12-04 17:19 | disposition home or self-care (01) ==
LOC: HO.MRI 17:18
PROVIDERS: PCP Nurse Practitioner Family; Visit Provider Nurse Practitioner Family
DX: M47.817 Spondylosis without myelopathy or radiculopathy, lumbosacral region (principal); M54.16 Radiculopathy, lumbar region
CPT/HCPCS: 72148

== ENCOUNTER → 2024-12-04 17:19 | Outpatient (BNV) | payer OTHER, SELFPAY | PROVIDERS: PCP Nurse Practitioner Family; Visit Provider Radiology Diagnostic Radiology | DX: M51.27 Other intervertebral disc displacement, lumbosacral region (principal); M47.816 Spondylosis without myelopathy or radiculopathy, lumbar region | CPT/HCPCS: 72148 ==

== ENCOUNTER 2024-12-05 08:03 | Outpatient (REF) | payer OTHER, SELFPAY ==
--- NOTE | ~2024-12-05 | FL_ITS ---
EXAMINATION: FL GUIDANCE ONLY HISTORY: M53.3 - Sacrococcygeal disorders, not elsewhere classified COMPARISON: None available. TECHNIQUE: Fluoroscopy time: 0.1 minutes. Cumulative Dose: 1.95 mGy. DAP: 0.0157 mGym2 Images: 3. FINDINGS: Images demonstrate needles in the regions of the bilateral sacroiliac joints. FL/FL guidance in treatment room IMPRESSION: Fluoroscopy during procedure. Please see procedure report for additional information. Electronically signed by: Deuce Pierre MD 12/06/2024 07:30 AM EDT
--- OUTSIDE RECORDS SUMMARY | 2024-12-05 08:09 | XMS_ITS | Clinical Summary ---
Author Organization [facility], Address [address] [place] [address] [place] [address] Phone Care Team Providers Care Telecom Field Technician Name Role Phone Raymundo Mcdonald NP Primary Care Provider [phone] Allergies Active Allergy Reactions Criticality Noted Date [...] patient's age to complete this topic Insurance [facility] MEDICAID Care Teams Telecom Field Technician Relationship Specialty Start Date End Date Raymundo Mcdonald NP [facility] [place] [address] PCP - General Nurse Practitioner 10/10/23
--- OUTSIDE RECORDS SUMMARY | 2024-12-05 08:09 | XMS_ITS | Clinical Summary ---
Author Organization [employer] Address [address] [facility] 7t [place] [address] Care Team Providers Care Court Crier Name Role Phone Unavailable Primary Care Provider [...] Description 10/30/2024 3:45 PM EST Office Visit [facility] [address] [place] [address] Debby Escamilla, OD Dry eyes, bilateral (Primary [...] Description 01/28/2025 1:00 PM EDT Office Visit [facility] [address] [place] [address] Pily Perkins, OD [address] [place] [address] Health Maintenance Due Date Last Done Comments [...] patient's age to complete this topic Insurance [facility] [address] [place] [id number]
--- OUTSIDE RECORDS SUMMARY | 2024-12-05 08:09 | XMS_ITS | Encounter Summary ---
Author Organization [facility], Address [address] [place] [address] Phone Care Team Providers Care Surgical Services Assistant Name Role Phone Raymundo Mcdonald NP Primary Care Provider [phone] Encounter Details Date Type Department Care Team (Late st Contact Info) Description 10/10/2023 Documentation Only [facility], [address] [place] [address] Minna SimpsonJackson, [place] [address] [place] [address] Social History Tobacco Use Types [...] on filedocumented in this encounter Care Teams Surgical Services Assistant Relationship Specialty Start Date End Date Raymundo Mcdonald NP [address] [place] [address] PCP - General Nurse Practitioner 10/10/23 documented as of this encounter
--- OUTSIDE RECORDS SUMMARY | 2024-12-05 08:09 | XMS_ITS | Clinical Summary ---
Author Organization [employer] [facility] Address [address] [place] [address] Care Team Providers Care Corporate Relations Manager Name Role Phone Cr Madera MD Primary Care Provider [phone] Surgical History Surgery Date Site/Laterality Comments VENTRAL HERNIA REPAIR PROCEDURE: HISTORICAL VTRL WALL HERNIA RE APPENDECTOMY PROCEDURE: HISTORICAL APPENDECTOMY; COMMENT: w/ incisional hernia repair HYSTERECTOMY PROCEDURE: HISTORICAL TOTAL HYSTERECTOMY WITH BSO HERNIA REPAIR PROCEDURE: CA REPAIR FIRST ABDOMINAL WALL HERNIA Medical History [...] age to complete this topic Care Teams Corporate Relations Manager Relationship Specialty Start Date End Date Cr Madera MD [address] [place] [address] PCP - General Internal Medicine 07/05/17
[2024-12-05 09:00] LABS: MANUAL DIFF FLAG NO
[2024-12-05 09:29] LABS: Basophils Absolute Auto 0.1 X10*3/uL (0.0-0.2); Eosinophils Absolute Auto 0.2 X10*3/uL (0.0-0.4); Eosinophils Percent Auto 1.9 % (0-4); Hematocrit 43.3 % (37.0-47.0); Hemoglobin 14.7 g/dl (12.0-16.0); Imm Gran Abs Auto 0.03 X10*3/uL (0.00-0.03); Imm Gran Pct Auto 0.3 % (0.0-0.4); Lymphocytes Absolute Auto 4.3 X10*3/uL (1.2-4.9); Lymphocytes Percent Auto 37.1 % (20-40); Mean Corpuscular HGB Conc 33.9 g/dl (31.0-35.0); Mean Corpuscular Volume 91.4 fL (80.0-98.0); Mean Platelet Volume 8.7 fL (9.4-12.3); Monocytes Absolute Auto 0.9 X10*3/uL (0.1-1.2); Monocytes Percent Auto 7.8 % (2-11); Neutrophils Percent Auto 51.9 % (45-73); Platelet Count 454 X10*3/uL (160-400); Red Blood Count 4.74 X10*6/uL (4.20-5.50); Red Cell Distribution Width 13.2 % (11.0-16.0); White Blood Count 11.5 X10*3/uL (4.8-10.8)
[2024-12-05 10:01] LABS: Alanine Aminotransferase 37 U/L (0-31); Albumin Level 4.9 g/dL (3.5-5.0); Alkaline Phosphatase 97 U/L (39-117); Anion Gap 11 (12-20); Aspartate Amino Transferase 27 U/L (5-31); Bilirubin Total 0.4 mg/dL (0.0-1.0); Blood Urea Nitrogen 13 mg/dL (9-16); Calcium 9.8 mg/dL (8.4-10.2); Carbon Dioxide 25 mmol/L (22-29); Chloride 107 mmol/L (96-108); Cholesterol 240 mg/dL (<200); Estimated Glomerular Filt Rate > 60; Glucose Fasting 88 mg/dL (60-99); Glucose Random 88 mg/dL (60-115); HDL Cholesterol 46 mg/dL (>40); LDL Cholesterol Calculated 164 mg/dL (<100); Potassium 3.9 mmol/L (3.3-5.1); Sodium 139 mmol/L (135-145); Total Protein 7.9 g/dL (6.5-8.0); Triglycerides 153 mg/dL (<150)
[2024-12-05 10:25] LABS: TSH reflex Free T4 0.76 uIU/mL (0.32-4.0)
[2024-12-05 11:01] LABS: Appearance Urine Clear; Color Urine Yellow; Glucose Urine UA Negative (Negative); Leukocyte Esterase Urine Negative (Negative); Nitrite Urine Negative (Negative); PH 5.5 (5.0-9.0); Specific Gravity - Urine 1.025 (1.005-1.025); Urine Blood Negative (Negative); Urine Ketones Trace mg/dL (Negative); Urine Protein Negative (Neg-Trace)
== END 2024-12-05 08:04 | disposition home or self-care (01) ==
LOC: HO.LAB 08:03
PROVIDERS: Internal Medicine Hypertension Specialist; Absent Provider Nurse Practitioner Family; PCP Nurse Practitioner Family; Visit Provider Internal Medicine
DX: M53.3 Sacrococcygeal disorders, not elsewhere classified (principal); E87.6 Hypokalemia; E78.5 Hyperlipidemia, unspecified
CPT/HCPCS: 27096; 36415; 80048; 80053; 80061; 81003; 84443; 85025; J2003; J2795

== ENCOUNTER 2024-12-05 11:48 | Outpatient (AMB) | payer OTHER, SELFPAY ==
[2024-12-05 12:02] VITALS: BP 142/74; PULSE 82; RESP 16; O2SAT 100
--- NOTE | 2024-12-05 12:02 | A.OFFVIS_ITS ---
Vital Signs 12/05/24 12:02 12/05/24 12:54 BP 142/74 H 137/69 Blood Pressure Location Lt brachial Lt brachial Position Sitting Sitting Respiration 16 16 Pulse 82 84 Pulse Source Pulse Oximeter Pulse Oximeter Pulse Oximetry (%) 100 99 Oxygen Delivery Method Room Air Room Air Intake Visit Reasons: James Dx SIJ inj Integrated Circuit Ic Layout Designer Required: Yes Integrated Circuit Ic Layout Designer Services: Integrated Circuit Ic Layout Designer Offered & Declined Integrated Circuit Ic Layout Designer Name: Prefers daughter Allergies Sulfa (Sulfonamide Antibiotics) [SULFA (SULFONAMIDE ANTIBIOTICS)] Allergy (Intermediate, Verified 12/05/24 12:03) HIVES Latex, Natural Rubber Allergy (Mild, Verified 12/05/24 12:03) Rash egg Allergy (Verified 12/05/24 12:03) Abdominal Pain strawberry Allergy (Verified 12/05/24 12:03) Abdominal Pain aspirin [ASPIRIN] Adverse Reaction (Intermediate, Verified 12/05/24 12:03) ABD PAIN morphine [MORPHINE] Adverse Reaction (Intermediate, Verified 12/05/24 12:03) Abdominal Pain almond Allergy (Severe, Uncoded 12/05/24 12:03) Stomack pain Lactose intollerance Allergy (Severe, Uncoded 12/05/24 12:03) Stomach pain, nausceau Medication List - Last Reconciled 12/05/24 by Brandy Melgar LPN albuterol sulfate 2.5 mg (3 mL) inhalation DAILY PRN amitriptyline 50 mg (2 x 25 mg) PO BEDTIME 30 days amlodipine 10 mg PO DAILY azelastine 1 spray intranasal BID cane Quad cane cholecalciferol (vitamin D3) 25 mcg PO DAILY clonazepam 0.5 mg PO DAILY PRN clonazepam 1 mg PO BEDTIME PRN cyproheptadine 4 mg PO BEDTIME PRN 30 days diclofenac sodium 1% 2 grams topical BID PRN NS diclofenac sodium 50 mg PO BID PRN famotidine 40 mg PO BEDTIME gabapentin 800 mg PO TID galcanezumab-gnlm (Emgality Pen) 120 mg subcut Q30D hydrocortisone 2.5% 1 appl CO Q8-12H hydrocortisone acetate (Anusol-HC) 25 mg CO BID PRN hyoscyamine sulfate 0.125 mg PO BID-QID lansoprazole 30 mg PO DAILY linaclotide 290 mcg PO DAILY loratadine 10 mg PO DAILY lorazepam (Ativan) 1 mg PO ONCE memantine 10 mg PO Q OTHER DAY mometasone-formoterol 200-5 mcg/actuation (Dulera) 2 puffs inhalation Q12H 30 days montelukast 10 mg PO BEDTIME multivitamin with folic acid 400 mcg (Daily-Laxmi (with folic acid)) 1 tab PO DAILY naloxone 4 mg/actuation (Narcan) 1 spray intranasal Q2M nicotine (Nicotrol) 10 mg inhalation Q2-4H PRN 30 days nicotine 1 patch transdermal DAILY 28 days omega-3 acid ethyl esters 1 cap PO BID 90 days ondansetron 8 mg PO Q8H PRN polyethylene glycol 3350 (Gavilax) 17 grams PO DAILY potassium chloride ER 30 mEq PO DAILY pravastatin 10 mg PO BEDTIME prazosin 1 mg PO DAILY prednisone 6 tabs x's 3 days, 5 tabs x's 3 days, 4 tabs x's 3 days, 3 tabs x's 3 days, 2 tabs x's 3 days, 1 tab x's 3 days, then stop. orally daily; 21 days rizatriptan 10 mg PO DAILY PRN romosozumab-aqqg (Evenity) 210 mg subcut Q28D sennosides (Senna Laxative) 17.2 mg (2 x 8.6 mg) PO BEDTIME sertraline 100 mg PO DAILY Shower Chair As directed spironolactone 25 mg PO DAILY tizanidine 4 mg PO BID PRN HPI HPI James Dx SIJ inj: Details: Patient presents for scheduled procedure. Denies any recent cough, cold, infection, fever or other significant changes in medical history since last office visit. [facility] Medical History Low vitamin B12 level Smoker Numbness Wheezing Chronic radicular pain of lower back Foot pain, bilateral Joint pain in both hands Breast pain Hypokalemia Breast pain, right Allergies Migraines Renal calculi Bipolar disorder Chronic abdominal pain Osteoporosis Hyperparathyroidism Multinodular thyroid Depression Fibromyalgia Thrombocytosis Leukocytosis GERD (gastroesophageal reflux disease) Thyroid cancer PONV (postoperative nausea and vomiting) Elevated cholesterol Difficulty swallowing Vitamin D deficiency Anxiety Pulmonary nodule Asthma HTN (hypertension) Surgical History H/O pyloroplasty (03/27/24) History of excision of mass Hx of thyroidectomy H/O esophagogastroduodenoscopy H/O colonoscopy History of bilateral oophorectomy Hx of cholecystectomy S/P excision of lipoma History of total abdominal hysterectomy Hx of appendectomy Family History Father Diabetes mellitus Skin cancer Prostate cancer Mother HTN (hypertension) High cholesterol Mental health disorder Maternal Grandfather Myocardial infarction Maternal Grandmother No problems noted. Paternal Grandfather No problems noted. Paternal Grandmother Breast cancer Sister Mental health disorder Social History Household Members: None Housing: Apartment Are you a primary lawn care specialist to a significant other at home: No Do you presently have visiting nurse or other home services: No Alcohol intake: never Patient Tobacco Use Status: Current everyday Tobacco user Tobacco use type: Cigarette Cigarettes Per Day: 5 Years Smoked: 20 e-Cigarette/Vaping Use: Never Used Second Hand Smoke Exposure: No Advance Directives Date on File: 10/05/16 service: No Current occupational status: disabled Sexual orientation: Straight/Heterosexual Gender identity: Female Cognitive needs: No Hearing needs: No Vision needs: No Physical Exam Vital Signs: Last Vital Signs Pulse 84 12/05/24 12:54 Resp 16 12/05/24 12:54 BP 137/69 12/05/24 12:54 Pulse Ox 99 12/05/24 12:54 Oxygen Delivery Method Room Air 12/05/24 12:54 Office Procedures AMB Joint Injection/Aspiration Joint Injection/Aspiration Details: Sacroiliac Joint Injection, bilateral The procedure, its benefits, and its risks were explained and written informed consent was obtained from the patient. Immediately prior to starting the procedure, a time-out safety check was conducted. The patient's identification, procedure name, procedure site, and procedure laterality were confirmed with the patient. ? Patient was placed prone on the fluoroscopy table and the lumbosacral area was prepped using ChloraPrep and draped with sterile drapein standard fashion. The C-arm was rotated in a contralateral oblique fashion until the medial border of the iliac crest no longer foreshadowed the posterior sacroiliac joint line. The skin and subcutaneous tissue was anesthetized using 1 mL of 0.75% plain lidocaine with 1.5-inch 25-gauge needle in the middle region of the joint line.?A 3.5-inch 22-gauge spinal needle with small bend on the tip was slowly advanced towards the joint line, coaxial to the x-ray beam. Once bony content was obtained, the needle was easily slid into the intra-articular space.? Intra- articular needle position was confirmed using lateral fluoroscopy.? A total volume of 2.5mL of solution containing 0.5% of ropivacaine was injected intra- articularly. The stylet was reinserted and needle was removed. The patient tolerated the procedure well. Patient denied any lower extremity weakness or numbness. Patient was observed for 30 min and was discharged after fulfilling the standard discharge criteria. Coding 41558 - Sacroiliac (bilateral) Procedure code (CPT) selection complete Assessment & Plan Assessment & Plan (1) Sacroiliac joint pain: Code(s): M53.3 - Sacrococcygeal disorders, not elsewhere classified Category: Medical Plan Patient is status post bilateral diagnostic SI joint injections. Patient tolerated procedure well and was discharged home in stable condition with discharge instructions. All questions were answered. We will follow-up via telephone or in clinic to assess response to therapy. A follow-up appointment was made during today's visit. Orders: Orders FL guidance in treatment room Today M53.3 - Sacrococcygeal disorders, not elsewhere classified Coding Level of Care Code Procedure Only Diagnoses Sacroiliac joint pain M53.3 CPT Codes Coding - Joint 9: 25218 - Sacroiliac ([id number])
[2024-12-05 12:54] VITALS: BP 137/69; PULSE 84; RESP 16; O2SAT 99
--- OUTSIDE RECORDS SUMMARY | 2024-12-05 13:09 | XMS_ITS | Encounter Summary ---
Author Organization [facility], Address [address] [place] [address] Phone Care Team Providers Care Magnetic Testing Technician Name Role Phone Raymundo Mcdonald NP Primary Care Provider [phone] Encounter Details Date Type Department Care Team (Late st Contact Info) Description 10/10/2023 Documentation Only [facility], [address] [place] [address] [place], [place] [address] [place] [address] Social History Tobacco Use Types [...] on filedocumented in this encounter Care Teams Magnetic Testing Technician Relationship Specialty Start Date End Date Raymundo Mcdonald NP [address] [place] [address] PCP - General Nurse Practitioner 10/10/23 documented as of this encounter
--- OUTSIDE RECORDS SUMMARY | 2024-12-05 13:09 | XMS_ITS | Clinical Summary ---
Author Organization [facility], Address [address] [place] [address] [place] [address] Phone Care Team Providers Care Spring Coiler Hand Name Role Phone Raymundo Mcdonald NP Primary Care Provider [phone] Allergies Active Allergy Reactions Criticality Noted Date [...] patient's age to complete this topic Insurance [facility] MEDICAID Care Teams Spring Coiler Hand Relationship Specialty Start Date End Date Raymundo Mcdonald NP [facility] [place] [address] PCP - General Nurse Practitioner 10/10/23
--- OUTSIDE RECORDS SUMMARY | 2024-12-05 13:09 | XMS_ITS | Clinical Summary ---
Author Organization [employer] Address [address] [facility] 7t [place] [address] Care Team Providers Care Retail And Restaurant Associate Name Role Phone Unavailable Primary Care Provider [...] Description 10/30/2024 3:45 PM EST Office Visit [facility] [address] [place] [address] Debby Escamilla, OD Dry eyes, bilateral (Primary [...] Description 01/28/2025 1:00 PM EDT Office Visit [facility] [address] [place] [address] Pily Perkins, OD [address] [place] [address] Health Maintenance Due Date Last Done Comments [...] patient's age to complete this topic Insurance [facility] [address] [place] [id number]
--- OUTSIDE RECORDS SUMMARY | 2024-12-05 13:09 | XMS_ITS | Clinical Summary ---
Author Organization [employer] [facility] Address [address] [place] [address] Care Team Providers Care Biofuels Technology Manager Name Role Phone Cr Madera MD Primary Care Provider [phone] Surgical History Surgery Date Site/Laterality Comments VENTRAL [...] age to complete this topic Care Teams Biofuels Technology Manager Relationship Specialty Start Date End Date Cr Madera MD [address] [place] [address] PCP - General Internal Medicine 07/05/17
== END 2024-12-05 12:55 | disposition home or self-care (01) ==
LOC: HO.PMCPRC 11:48
PROVIDERS: PCP Nurse Practitioner Family; Visit Provider Internal Medicine
DX: M53.3 Sacrococcygeal disorders, not elsewhere classified (principal)
CPT/HCPCS: 27096

== ENCOUNTER 2024-12-17 11:41 | Outpatient (AMB) | payer OTHER, SELFPAY ==
--- NOTE | 2024-12-17 11:42 | A.OFFVIS_ITS ---
Vital Signs 12/17/24 11:46 Height 5 ft 3 in Weight 163 lb BMI 28.9 BP 155/95 H Blood Pressure Location Rt brachial Position Sitting Pulse 103 H Pulse Source Pulse Oximeter Pulse Oximetry (%) 97 Oxygen Delivery Method Room Air Intake Visit Reasons: s/p tisha Dx SIJ inj/Discuss MRI Results Intake Note: Pain today 06/13 Gin Pole Operator Required: No Accompanied by: Self / Same As Patient Allergies Sulfa (Sulfonamide Antibiotics) [SULFA (SULFONAMIDE ANTIBIOTICS)] Allergy (Intermediate, Verified 12/05/24 12:03) HIVES Latex, Natural Rubber Allergy (Mild, Verified 12/05/24 12:03) Rash egg Allergy (Verified 12/05/24 12:03) Abdominal Pain strawberry Allergy (Verified 12/05/24 12:03) Abdominal Pain aspirin [ASPIRIN] Adverse Reaction (Intermediate, Verified 12/05/24 12:03) ABD PAIN morphine [MORPHINE] Adverse Reaction (Intermediate, Verified 12/05/24 12:03) Abdominal Pain almond Allergy (Severe, Uncoded 12/05/24 12:03) Stomack pain Lactose intollerance Allergy (Severe, Uncoded 12/05/24 12:03) Stomach pain, nausceau HPI Comments Details: Patient presenting with a follow-up for ongoing sacroiliac joint pain and no pain relief from recent diagnostic SI joint injections. The pain has been persistent, and MRI imaging studies show right foraminal broad-based disc herniation L5-S1 abutting. Historically, pain radiates from the lower back to the posterior right leg, worsening with walking, prolonged sitting, bending, t wisting or lifting and daily functions and travels. Despite attempts at pain management post-injection, the patient reports exacerbation, noticing a numbing sensation in the right leg. Chronicity of the pain with added osteoporotic considerations precludes certain interventions such as epidural steroid injections, guiding current management towards surgical consultation. Notably, osteoarthritis also contributes as an underlying pain source. Additionally, a left renal cyst was incidentally noted during previous screenings, which is monitored by Nephrology but asymptomatic at present per patient. Past Procedures: 12/05/24: Bilateral Diagnostic SI Joint Injections-0% pain relief PRIOR: The patient is a 59-year-old female presenting with numbness in her legs. She re ports an acute episode, occurring around or Monday last week, resulted in the urgent care visit due to significant concern with inability to stand and weakness with significant low back pain. She was confined to her bathroom for approximately 2 hours due to her inability to stand during the incident. This presentation is different from her typical chronic back pain, which she notes is normally localized on the left side in the L5-S1 distribution and sometimes involving the right side as well as sacroiliac joint pain. She recently missed her bilateral diagnostic SIJ injections and is rescheduled for 12/05/24. Patient denies previous lumbar spine MRI and denies any recent MRI order at Urgent clinic with development of acute leg numbness and weakness, gait impairment to assess potential spinal or neurological involvement. - Onset and Timing: Chronic back pain and fibromyalgia; new numbness in legs occurring recently - Quality and Character: Numbness preventing prolonged standing, throbbing, shooting, radiating - Location: Left L5-S1 distribution, sometimes involving right side - Areas of Radiation: Back to front of left leg with numbness dorsal aspect of left foot - Exacerbating Factors: Movements, bending, lifting, walking, prolonged standing - Relieving Factors: None, minimal relief with NSAIDs, gabapentin, heat, rest - Interference: Prevents standing or walking, impacts mobility and ADLs - Affect: Patient expressed fear and worry due to new numbness affecting her daily life - Analgesia: Current medications include gabapentin, clonazepam, diclofenac sodium, and amitriptyline - Adverse Effects: History of liver cyst which can influence tizanidine usage - Activities of Daily Living: Numbness severely impacts ability to stand and walk - Aberrant Drug-Related Behaviors: None reported PRIOR: Patient presents today for follow up after physical therapy. Patient reports she was able to complete 4 weeks of PT without significant improvement in her functioning, mobility, or sleep. She continues to endorse neck, mid and lower back pain with radiation into her buttocks and lateral hips. She ambulates with cane. Recent cervical and lumbar spine imaging are noted below. Patient is interested to proceed with diagnostic sacroiliac joint injections as initial steps. Denies any recent cough, cold, infection, fever or any significant changes in medical history since last office visit. PRIOR: Patient is a 59 years old Greek speaking female with history of fibromyalgia, polyarthralgia, chronic pain syndrome, osteoporosis ([facility], repeat bone scan 2024), thyroid cancer s/p thyroidectomy, Bipolar disorder, depression, presents today for initial evaluation of low back pain and widespread body pain due to fibromyalgia. product management specialist it was incorporated during today's visit. Denies any recent trauma, injury or falls. History of fall in June 2023 due to left knee pain related to instability. Patient was previously seen at [facility] and completed formal course of physical therapy and underwent multiple injections 2-3 years ago with mixed results. She was referred to our office by her PCP for lumbar radiculopathy and was ordered lumbar spine MRI which was denied by her insurance. Back pain is axial and radiates to upper and lower extremities per patient. She also reports chronic right upper back pain with shooting pain down into her lower back. Pain is present with activity and rest and flares up with any movement, stress or weather changes. Pain is constant and is rated at 10/10. Patient reports tramadol and gabapentin allow her to be less symptomatic and more functional. Reports previous courses of PT for shoulder and knee pain were ineffective but willing to undergo PT for back and neck pain. Denies any fever or chills, abdominal or groin pain, weakness, footdrop, bladder or bowel dysfunction or saddle anesthesia. Patient follows with Endocrinology and Rheumatology services. Location: Lower back, right upper back, widespread body pain Duration: Chronic pain for couple years Characteristics of symptom or complaint: Aching, numbness, tingling, spasming, shooting, tiring, radiating, heavy, Aggravating or associated factors: Prolonged walking or sitting, cold weather, movements, ADLs, stress Relieving factors: Tramadol, gabapentin, heat therapy, activity modifications, rest Treatment: PT, injections at [facility] Medical History Low vitamin B12 level Smoker Numbness Wheezing Chronic radicular pain of lower back Foot pain, bilateral Joint pain in both hands Breast pain Hypokalemia Breast pain, right Allergies Migraines Renal calculi Bipolar disorder Chronic abdominal pain Osteoporosis Hyperparathyroidism Multinodular thyroid Depression Fibromyalgia Thrombocytosis Leukocytosis GERD (gastroesophageal reflux disease) Thyroid cancer PONV (postoperative nausea and vomiting) Elevated cholesterol Difficulty swallowing Vitamin D deficiency Anxiety Pulmonary nodule Asthma HTN (hypertension) Surgical History H/O pyloroplasty (03/27/24) History of excision of mass Hx of thyroidectomy H/O esophagogastroduodenoscopy H/O colonoscopy History of bilateral oophorectomy Hx of cholecystectomy S/P excision of lipoma History of total abdominal hysterectomy Hx of appendectomy Family History Father Diabetes mellitus Skin cancer Prostate cancer Mother HTN (hypertension) High cholesterol Mental health disorder Maternal Grandfather Myocardial infarction Maternal Grandmother No problems noted. Paternal Grandfather No problems noted. Paternal Grandmother Breast cancer Sister Mental health disorder Social History Household Members: None Housing: Apartment Are you a primary manager long term care to a significant other at home: No Do you presently have visiting nurse or other home services: No Alcohol intake: never Patient Tobacco Use Status: Current everyday Tobacco user Tobacco use type: Cigarette Cigarettes Per Day: 5 Years Smoked: 20 e-Cigarette/Vaping Use: Never Used Second Hand Smoke Exposure: No Advance Directives Date on File: 10/05/16 service: No Current occupational status: disabled Sexual orientation: Straight/Heterosexual Gender identity: Female Cognitive needs: No Hearing needs: No Vision needs: No Review of Systems Const All systems reviewed & are unremarkable except as noted in HPI and below Physical Exam Vital Signs: Last Vital Signs Pulse 103 H 12/17/24 11:46 BP 155/95 H 12/17/24 11:46 Pulse Ox 97 12/17/24 11:46 Oxygen Delivery Method Room Air 12/17/24 11:46 BMI result Body Mass Index 28.9 General: Appears afebrile. Alert and oriented. Mood and affect appropriate. Follows and participates in conversation appropriately. Respiratory effort is unlabored. No cough. Able to transition from sit to stand unassisted. Ambulates with cane. Ambulates with bilaterally normal heel strike and toe off, reports pain increase on the left with heel/toe standing. General: Yes no CVA tenderness Back/Spine/Pelvis Other: Limited lumbar ROM due to pain. Lumbar extension, bending forward and flexion reproduces moderate-severe pain. Multiple widespread TTPs 16/16 bilaterally, including upper and lower extremities.?Demonstrates 5/5 right and 4/5 left strength of quadriceps bilaterally as well as flexion/dorsiflexion of bilateral feet against resistance. 2+ pedal pulses bilaterally. Straight leg rise with dorsiflexion positive on the right. +1 patellar and achilles reflexes bilaterally. Facet loading test positive bilaterally. Gabby sign, Herrera?s, Gaenslen, Pelvic compression and Stinchfield tests are positive bilaterally. No groin pain with I/E hip rotations. Valsalva maneuver is positive. Back: no CVA tenderness Cervical Spine: cervical ROM normal, cervical muscular tenderness, pain with cervical ROM, No Cervical spine tenderness and No step off deformity Thoracic/Lumbar Spine: thoracic and lumbar spine normal to inspection, No Thoracic/lumbar spine scar(s), Lasegue's sign positive on the right and localized, pain with thoraco-lumbar ROM, paraspinal muscle tenderness, thoraco- lumbar ROM limited, No thoracic spinal tenderness and lumbar spinal tenderness (L4-S1) Pelvis: buttock tenderness (right>left) bilaterally Sacroiliac joints: bilaterally tender to palpation Extrem General: Yes capillary refill normal, Yes no clubbing, cyanosis or edema and Yes no calf tenderness Results Reviewed Results Reviewed: XR LUMBAR SPINE 08/05/25 CLINICAL INFORMATION: Radiculopathy, lumbar region M54.16. COMPARISON: None available. TECHNIQUE: 5 views of lumbar spine. FINDINGS: Normal vertebral body alignment. The lumbar lordosis is maintained. No acute fracture or subluxation. No loss of vertebral body height or intervertebral disc height. Tiny anterior endplate osteophytes at T11 through L1. No concerning lytic or blastic osseous lesion. Right upper quadrant surgical clips. Surgical coils overlying the anterior pelvic wall. No abnormal soft tissue calcification. IMPRESSION: Minimal degenerative disc disease at T11 through L1. XR CERVICAL SPINE 08/05/24 CLINICAL INFORMATION: Age-related osteoporosis without current pathological fracture M81.0. COMPARISON: XR Cervical spine without flexion/extension 08/16/2022 TECHNIQUE: 6 views of the cervical spine, inclusive of flexion and extension views, were obtained. FINDINGS: The vertebral alignment is normal. No intrinsic bony abnormality. No fracture or subluxation. Degenerative changes with disc space narrowing and osteophyte formation is seen at C5/6 and C6/7. Posterior facet joints appear well-maintained. No significant neural foraminal osseous encroachment. Surgical clips are seen in the paratracheal soft tissues The surrounding prevertebral soft tissues are otherwise unremarkable. IMPRESSION: Degenerative disc disease at C5/6 and C6/7. XR DEXA appendicular skeleton 08/12/24 IMPRESSION: 1. DIAGNOSIS: Osteoporosis based on the lowest T-score value of -3.5 in the lumbar spine applying World Health Organization criteria. MR LUMBAR SPINE WITHOUT CONTRAST 12/04/24 FINDINGS: Last rib-bearing vertebra labeled T12. No bone marrow STIR signal abnormality. Bone marrow inhomogeneity throughout the axial skeleton and bony pelvis. Disc desiccation, L5-S1 and to a lesser extent L4-5. There is normal alignment. The conus medullaris ends at pedicle of L1 with normal signal. T12-L1: No disc herniation. No neuroforamina stenosis. L1-2: No disc herniation. No neuroforamina stenosis. L2-3: Broad-based disc bulging. Facet joint hypertrophy. No compression upon neural elements. L3-4: Broad-based disc bulging. Facet joint hypertrophy. No compression upon neural elements. L4-5: Broad-based disc bulging. Facet joint and ligamentum flavum hypertrophy. Reduced AP diameter of the thecal sac and the neural foramina. No compression upon neural elements. L5-S1: There is a right foraminal broad-based disc herniation abutting the right S1 nerve root. Facet joint hypertrophy. Right neuroforamina narrowing. No prevertebral compartment hematoma, mass or fluid collection. Hyperintense T2/cystic lesion in the left kidney. IMPRESSION: Right foraminal broad-based disc herniation L5-S1 abutting the right S1 nerve root on its lateral recess and likely encroaching right L5. Spondylosis at L4-5 without compression upon neural elements. Calcium metabolic disorder/osteopenia versus osteoporosis. Assessment & Plan Assessment & Plan (1) Lumbosacral spondylosis: Code(s): M47.817 - Spondylosis without myelopathy or radiculopathy, lumbosacral region Category: Medical (2) Lumbar radiculopathy: Code(s): M54.16 - Radiculopathy, lumbar region Category: Medical (3) Lumbar degenerative disc disease: Code(s): M51.369 - Other intervertebral disc degeneration, lumbar region without mention of lumbar back pain or lower extremity pain Category: Medical (4) Lumbar disc herniation with radiculopathy: Code(s): M51.16 - Intervertebral disc disorders with radiculopathy, lumbar region Category: Medical Plan Referral to a spinal surgeon is central for management due to disc herniation at L5-S1 impinging upon the right nerve root as noted in the MRI. Given the constraints by osteoporosis, options like epidural injections are not feasible. Meanwhile, oxycodone is prescribed cautiously to manage acute pain episodes until the surgical consultation. Monitoring of the renal cyst is indicated, primarily through the outpatient Nephrology follow-up as previously substantiated. Patient is aware to call if pain worsens or if she develops any red flag symptoms to seek emergency care. Patient denies any cauda equina syndrome symptoms at this time. Patient was informed and verbally consented to the use of an ambient scribe for clinic note documentation during this visit. Medications: New oxycodone Partial Fill upon patient request. 5 mg PO BID 10 days PRN 20 tabs 0RF pain (scale score 7-10) M47.817 - Spondylosis without myelopathy or radiculopathy, lumbosacral region, M51.369 - Other intervertebral disc degeneration, lumbar region without mention of lumbar back pain or lower extremity pain, M54.16 - Radiculopathy, lumbar region Refilled naloxone 4 mg/actuation (Narcan) spray 1 dose into ONE nostril; alternate nostrils w each dose until help arrives 1 spray intranasal Q2M 2 ea 2RF Patient Instructions: - Follow up with the spinal surgeon as scheduled. - Take prescribed oxycodone sparingly and only when necessary for severe pain. - Monitor and report symptoms post any intervention, especially if pain worsens. - Attend all scheduled nephrology appointments regarding the renal cyst. - Maintain open communication regarding changes in medication efficacy and side effects. - Return for follow-up visits for ongoing arthritis management. - Seek immediate attention for worsening symptoms or adverse reactions to medications. Coding Level of Care Code New Pt Level 4 (28639) Diagnoses Lumbosacral spondylosis M47.817 Lumbar radiculopathy M54.16 Lumbar degenerative disc disease M51.369 Lumbar disc herniation with radiculopathy M51.16
[2024-12-17 11:46] VITALS: BP 155/95; PULSE 103; O2SAT 97; BMI 28.9
--- OUTSIDE RECORDS SUMMARY | 2024-12-17 14:27 | XMS_ITS | Clinical Summary ---
Author Organization [facility], Address [address] [place] [address] [place] [address] Phone Care Team Providers Care Wire Spiral Binder Name Role Phone Raymundo Mcdonald NP Primary Care Provider [phone] Allergies Active Allergy Reactions Criticality Noted Date [...] (1 of 3 - 19+ 3-dose series) 06/01 Colorectal Cancer Screening: Annual FOBT 2016 Colorectal Cancer Screening: Colonoscopy 2016 Colorectal Cancer Screening: Sigmoidoscopy 2016 Pneumococcal Vaccine: 50+ Years (1 of 1 - PCV) 017 Influenza Vaccine (Season Ended) 2025 Insurance [facility] Medicaid Care Teams Wire Spiral Binder Relationship Specialty Start Date End Date Raymundo Mcdonald NP [address] [place] [address] PCP - General Nurse Practitioner 10/10/23
--- OUTSIDE RECORDS SUMMARY | 2024-12-17 14:27 | XMS_ITS | Encounter Summary ---
Author Organization [facility], Address [address] [place] [address] Phone Care Team Providers Care Crusher And Blender Operator Name Role Phone Raymundo Mcdonald NP Primary Care Provider [phone] Encounter Details Date Type Department Care Team (Late st Contact Info) Description 10/10/2023 Documentation Only [facility], [address] [place] [address] [place] [address] [place] [address] Social History Tobacco Use Types [...] on filedocumented in this encounter Care Teams Crusher And Blender Operator Relationship Specialty Start Date End Date Raymundo Mcdonald NP [address] [place] [id number] PCP - General Nurse Practitioner 10/10/23 documented as of this encounter
--- OUTSIDE RECORDS SUMMARY | 2024-12-17 14:27 | XMS_ITS | Clinical Summary ---
Author Organization [id number] Address [address] [place] [address] Care Team Providers Care Scheduling Representative Name Role Phone Cr Madera MD Primary Care Provider [phone] Surgical History Surgery Date Site/Laterality Comments VENTRAL HERNIA REPAIR PROCEDURE: HISTORICAL VTRL WALL HERNIA RE APPENDECTOMY PROCEDURE: HISTORICAL APPENDECTOMY; COMMENT: w/ incisional hernia repair HYSTERECTOMY PROCEDURE: HISTORICAL TOTAL HYSTERECTOMY WITH BSO HERNIA REPAIR PROCEDURE: AL REPAIR FIRST ABDOMINAL WALL HERNIA Medical History [...] Vaccine (2023-2 5 season) 2024 Influenza Vaccine (Season Ended) 2025 HIB Vaccines Aged Out No longer eligi [...] age to complete this topic Meningococcal B Vaccine Aged Out No l onger eligible based on patient's age to complete this topic RSV Immunization Patients Un lanre 20 months Aged Out No longer eligible b ased on patient's age to complete this topic Varicella Vaccines Aged Out No longer eligible based on patient's age to complete this topic Care Teams Scheduling Representative Relationship Specialty Start Date End Date Cr Madera MD [address] [place] [address] PCP - General Internal Medicine 07/05/17
== END 2024-12-17 12:16 | disposition home or self-care (01) ==
LOC: HO.PMC 11:41
PROVIDERS: PCP Nurse Practitioner Family; Visit Provider Nurse Practitioner Family
DX: M47.817 Spondylosis without myelopathy or radiculopathy, lumbosacral region (principal); M51.369 Other intervertebral disc degeneration, lumbar region without mention of lumbar back pain or lower extremity pain; M51.16 Intervertebral disc disorders with radiculopathy, lumbar region
CPT/HCPCS: 99214

== ENCOUNTER → 2024-12-17 11:41 | Outpatient (BNVA) | payer OTHER, SELFPAY | PROVIDERS: PCP Nurse Practitioner Family; Visit Provider Nurse Practitioner Family | DX: M51.369 Other intervertebral disc degeneration, lumbar region without mention of lumbar back pain or lower extremity pain (principal); M47.27 Other spondylosis with radiculopathy, lumbosacral region; M51.16 Intervertebral disc disorders with radiculopathy, lumbar region | CPT/HCPCS: 99212 ==

== ENCOUNTER 2024-12-23 11:07 | Outpatient (REF) | payer OTHER, SELFPAY ==
--- OUTSIDE RECORDS SUMMARY | 2024-12-23 12:03 | XMS_ITS | Clinical Summary ---
Author Organization [employer] Address [address] [facility] 7[address] [place] [address] Care Team Providers Care Apprentice Name Role Phone Unavailable Primary Care Provider [...] Description 10/30/2024 3:45 PM EST Office Visit [facility] [address] [place] [address] Debby Escamilla, OD Dry eyes, bilateral (Primary [...] Description 01/28/2025 1:00 PM EDT Office Visit [facility] [address] [place] [address] Pily Perkins, OD [address] [place] [address] Health Maintenance Due Date Last Done Comments [...] patient's age to complete this topic Insurance [facility] ACO [address] [place] [id number]
--- OUTSIDE RECORDS SUMMARY | 2024-12-23 12:03 | XMS_ITS | Clinical Summary ---
Author Organization [employer] [facility] Address [address] [place] [address] Care Team Providers Care Heel Varnisher Name Role Phone Cr Madera MD Primary Care Provider [phone] Surgical History Surgery Date Site/Laterality Comments VENTRAL HERNIA REPAIR PROCEDURE: HISTORICAL VTRL WALL HERNIA RE APPENDECTOMY PROCEDURE: HISTORICAL APPENDECTOMY; COMMENT: w/ incisional hernia repair HYSTERECTOMY PROCEDURE: HISTORICAL TOTAL HYSTERECTOMY WITH BSO HERNIA REPAIR PROCEDURE: [place] REPAIR FIRST ABDOMINAL WALL HERNIA Medical History [...] age to complete this topic Care Teams Heel Varnisher Relationship Specialty Start Date End Date Cr Madera MD [address] [place] [address] PCP - General Internal Medicine 07/05/17
--- OUTSIDE RECORDS SUMMARY | 2024-12-23 12:03 | XMS_ITS | Encounter Summary ---
Author Organization [facility], Address [address] [place] [address] Phone Care Team Providers Care Travel Counselor Automobile Club Name Role Phone Raymundo Mcdonald NP Primary Care Provider [phone] Encounter Details Date Type Department Care Team (Late st Contact Info) Description 10/10/2023 Documentation Only [facility], [address] [place] [address] [place], [place] [address] [place] [address] Social History Tobacco Use Types [...] on filedocumented in this encounter Care Teams Travel Counselor Automobile Club Relationship Specialty Start Date End Date Raymundo Mcdonald NP [address] [place] [address] PCP - General Nurse Practitioner 10/10/23 documented as of this encounter
--- OUTSIDE RECORDS SUMMARY | 2024-12-23 12:03 | XMS_ITS | Clinical Summary ---
Author Organization [facility], Address [address] [place] [address] [place] [address] Phone Care Team Providers Care Control Panel Tester Name Role Phone Raymundo Mcdonald NP Primary Care Provider [phone] Allergies Active Allergy Reactions Criticality Noted Date [...] 017 Influenza Vaccine (Season Ended) 2025 Insurance [facility] Medicaid Care Teams Control Panel Tester Relationship Specialty Start Date End Date Raymundo Mcdonald NP [address] [place] [address] PCP - General Nurse Practitioner 10/10/23
[2024-12-23 13:08] LABS: MANUAL DIFF FLAG NO
[2024-12-23 13:17] LABS: Basophils Absolute Auto 0.1 X10*3/uL (0.0-0.2); Basophils Percent Auto 0.7 % (0-2); Eosinophils Absolute Auto 0.2 X10*3/uL (0.0-0.4); Eosinophils Percent Auto 1.2 % (0-4); Hematocrit 47.7 % (37.0-47.0); Imm Gran Abs Auto 0.07 X10*3/uL (0.00-0.03); Imm Gran Pct Auto 0.5 % (0.0-0.4); Lymphocytes Percent Auto 22.1 % (20-40); Mean Corpuscular HGB Conc 33.5 g/dl (31.0-35.0); Mean Corpuscular Hemoglobin 31.1 pg (27.0-33.0); Mean Corpuscular Volume 92.8 fL (80.0-98.0); Mean Platelet Volume 9.3 fL (9.4-12.3); Monocytes Percent Auto 7.6 % (2-11); Neutrophils Absolute Auto 9.1 x10*3/uL (2.0-8.3); Neutrophils Percent Auto 67.9 % (45-73); Platelet Count 431 X10*3/uL (160-400); Red Blood Count 5.14 X10*6/uL (4.20-5.50); Red Cell Distribution Width 13.2 % (11.0-16.0); White Blood Count 13.4 X10*3/uL (4.8-10.8)
[2024-12-23 13:36] LABS: Albumin Level 4.8 g/dL (3.5-5.0); Alkaline Phosphatase 119 U/L (39-117); Anion Gap 14 (12-20); Aspartate Amino Transferase 37 U/L (5-31); Bilirubin Total 0.3 mg/dL (0.0-1.0); Blood Urea Nitrogen 10 mg/dL (9-16); Calcium 9.6 mg/dL (8.4-10.2); Carbon Dioxide 20 mmol/L (22-29); Chloride 108 mmol/L (96-108); Cholesterol 202 mg/dL (<200); Estimated Glomerular Filt Rate > 60; Glucose Fasting 116 mg/dL (60-99); HDL Cholesterol 47 mg/dL (>40); LDL Cholesterol Calculated 118 mg/dL (<100); Magnesium 2.1 mg/dL (1.6-2.6); Potassium 4.3 mmol/L (3.3-5.1); Sodium 138 mmol/L (135-145); Total Protein 7.9 g/dL (6.5-8.0); Triglycerides 187 mg/dL (<150)
[2024-12-23 13:53] LABS: Alanine Aminotransferase 54 U/L (0-31)
== END 2024-12-23 11:08 | disposition home or self-care (01) ==
LOC: HO.HMGCLDS 11:07
PROVIDERS: Internal Medicine Nephrology; PCP Nurse Practitioner Family; Referring Provider Internal Medicine Hypertension Specialist; Visit Provider Nurse Practitioner Family
DX: E78.5 Hyperlipidemia, unspecified (principal); R10.9 Unspecified abdominal pain
CPT/HCPCS: 36415; 80053; 80061; 83735; 85025; 96127; 99212

== ENCOUNTER 2024-12-23 11:07 | Outpatient (AMB) | payer OTHER, SELFPAY ==
[2024-12-23 11:09] VITALS: BP 120/70; PULSE 101; RESP 16; TEMP 37; O2SAT 95; BMI 28.0
--- NOTE | 2024-12-23 11:09 | A.OFFPC_ITS ---
Vital Signs 12/23/24 11:09 Height 5 ft 3 in Weight 158 lb BMI 28.0 BP 120/70 Blood Pressure Location Rt brachial Position Sitting Respiration 16 Pulse 101 H Pulse Source Pulse Oximeter Temp 98.6 F Temp Source Oral Pulse Oximetry (%) 95 Oxygen Delivery Method Room Air Intake Visit Reasons: 6 month follow up Intake Note: Pt is here today for 6 months follow up visit. Allergies Sulfa (Sulfonamide Antibiotics) [SULFA (SULFONAMIDE ANTIBIOTICS)] Allergy ( Intermediate, Verified 12/23/24 12:06) HIVES Latex, Natural Rubber Allergy (Mild, Verified 12/23/24 12:06) Rash egg Allergy (Verified 12/23/24 12:06) Abdominal Pain strawberry Allergy (Verified 12/23/24 12:06) Abdominal Pain aspirin [ASPIRIN] Adverse Reaction (Intermediate, Verified 12/23/24 12:06) ABD PAIN morphine [MORPHINE] Adverse Reaction (Intermediate, Verified 12/23/24 12:06) Abdominal Pain almond Allergy (Severe, Uncoded 12/23/24 12:06) Stomack pain Lactose intollerance Allergy (Severe, Uncoded 12/23/24 12:06) Stomach pain, nausceau Medication List - Last Reconciled 12/23/24 by Raymundo Mcdonald, INNERSOLE MAKER- albuterol sulfate 2.5 mg (3 mL) inhalation DAILY PRN amitriptyline 50 mg (2 x 25 mg) PO BEDTIME 30 days amlodipine 10 mg PO DAILY azelastine 1 spray intranasal BID cane Quad cane cholecalciferol (vitamin D3) 25 mcg PO DAILY clonazepam 0.5 mg PO DAILY PRN clonazepam 1 mg PO BEDTIME PRN cyproheptadine 4 mg PO BEDTIME PRN 30 days diclofenac sodium 1% 2 grams topical BID PRN NS diclofenac sodium 50 mg PO BID PRN famotidine 40 mg PO BEDTIME gabapentin 800 mg PO TID galcanezumab-gnlm (Emgality Pen) 120 mg subcut Q30D hydrocortisone 2.5% 1 appl TN Q8-12H hydrocortisone acetate (Anusol-HC) 25 mg TN BID PRN hyoscyamine sulfate 0.125 mg PO BID-QID lansoprazole 30 mg PO DAILY linaclotide 290 mcg PO DAILY loratadine 10 mg PO DAILY memantine 10 mg PO Q OTHER DAY mometasone-formoterol 200-5 mcg/actuation (Dulera) 2 puffs inhalation Q12H 30 days montelukast 10 mg PO BEDTIME multivitamin with folic acid 400 mcg (Daily-Laxmi (with folic acid)) 1 tab PO DAILY naloxone 4 mg/actuation (Narcan) 1 spray intranasal Q2M omega-3 acid ethyl esters 1 cap PO BID 90 days ondansetron 8 mg PO Q8H PRN oxycodone 5 mg PO BID PRN 10 days polyethylene glycol 3350 (Gavilax) 17 grams PO DAILY potassium chloride ER 30 mEq PO DAILY pravastatin 20 mg PO BEDTIME prazosin 1 mg PO DAILY rizatriptan 10 mg PO DAILY PRN romosozumab-aqqg (Evenity) 210 mg subcut Q28D sennosides (Senna Laxative) 17.2 mg (2 x 8.6 mg) PO BEDTIME sertraline 100 mg PO DAILY Shower Chair As directed spironolactone 25 mg PO DAILY tizanidine 4 mg PO BID PRN Tobacco use date assessed: 12/23/24 Dental Screening Dental Screen Date: 12/23/24 Did you have a dental visit in the last 12 months?: Yes Did you have a dental problem in the last 6 months where you did not have access to dental care?: No Was dental information given to patient?: Patient has dentist HPI 6 month follow up HPI Details Chief Complaint The patient presents for follow-up on hyperlipidemia and reports right abdominal discomfort. History of Present Illness The patient is a 59-year-old female presenting with abdominal tenderness and hyperlipidemia. She reports one month of right-sided abdominal discomfort, noting that even light palpation causes tenderness. Notable medical history includes prior cholecystectomy and appendectomy, which may contribute contextually to her symptomatology. There is an absence of fever, chills, or vomiting, and she maintains dietary tolerance without recent appetite changes. In addition to her abdominal symptoms, the patient is under evaluation for hyperlipidemia, necessitating an adjustment in her medication regimen. She also suffers from lumbar radiculopathy and uses a cane for mobility. Scheduled for a spine consultation, her condition demands ongoing assessment and management. Tobacco use remains a significant factor in her overall health profile, complicating her chronic conditions. Social History - Tobacco use: Patient continues to smok e. - Functional status: Uses a cane for mob ility due to lumbar radiculopathy. Health Maintenance - Statin therapy adjustment for hyperlip idemia under consideration. - Referral for spine consultation for clemente gustafson radiculopathy management. Review of Systems - Gastrointestinal: Reports right abdomi nal tenderness; denies fever, chills, vomiting. - Respiratory: Reports smoking; denies r espiratory symptoms. - Musculoskeletal: Reports lumbar radicu lopathy; using a cane for mobility. - General: Tolerating diet; denies recen t changes in dietary habits. Physical Exam General: Cooperative, healthy appearing, no acute distress and well developed, using cane Orientation: Patient oriented x3 Limitations: No limitations Head: Normal to inspection Ears: Hearing grossly normal bilaterally Nose: Normal external nose present Face and sinus: Normal facial exam Eyes: Appearance normal, both eyes and all related structures Neck: Normal visual inspection and Yes full ROM Respiratory: Normal respiratory effort and able to speak in complete sentences. Clear to auscultation bilaterally Cardiovascular: Regular rate and rhythm. Normal S1 and S2 GI: Tenderness noted with light palpation of right abdomen Skin: No rashes or lesions noted Neuro: Patient oriented x3 Extremities: Normal to inspection, using a cane currently Results Plan I plan to increase the patient's statin dosage to improve hyperlipidemia management while continuing to encourage smoking cessation due to underlying risks. For her lumbar radiculopathy, her mobility is supported by the use of a cane, and a follow-up with the spine team is scheduled for comprehensive management. Given her abdominal tenderness history following cholecystectomy and appendectomy, an abdominal ultrasound is warranted for further assessment. Discussion Notes I discussed the rationale for increasing her statin dosage to manage her hyperlipidemia effectively, stressing the importance of continued lipid management and cessation of smoking to reduce cardiovascular risks. Will cont to watch lipids/liver enzymes, has had a Hx of elevated liver enzymes related to statin use. Cannot take PCKSK9 I due to allergy to latex. We reviewed her lumbar radiculopathy, agreeing on the necessity of using a cane and scheduling a consultation with the spine team for potential management strategies. For her right abdominal discomfort, we talked about the possibility of underlying causes related to previous surgeries, and I obtained her consent for an abdominal ultrasound. We agreed on the importance of monitoring for any new symptoms, such as fever or appetite changes, and planned her follow-up appropriately. Patient Instructions - Continue using your cane for mobility support. - Follow up with the spine team as sched uled for your back condition. - Increase your prescribed statin dosage as directed. - Undergo the abdominal ultrasound as sc heduled. - Monitor for any new symptoms, such as fever or a change in appetite, and seek care if they occur. - Consider smoking cessation resources t o better manage health risks. [facility] Medical History Low vitamin B12 level Smoker Numbness Wheezing Chronic radicular pain of lower back Foot pain, bilateral Joint pain in both hands Breast pain Hypokalemia Breast pain, right Allergies Migraines Renal calculi Bipolar disorder Chronic abdominal pain Osteoporosis Hyperparathyroidism Multinodular thyroid Depression Fibromyalgia Thrombocytosis Leukocytosis GERD (gastroesophageal reflux disease) Thyroid cancer PONV (postoperative nausea and vomiting) Elevated cholesterol Difficulty swallowing Vitamin D deficiency Anxiety Pulmonary nodule Asthma HTN (hypertension) Surgical History H/O pyloroplasty (03/27/24) History of excision of mass Hx of thyroidectomy H/O esophagogastroduodenoscopy H/O colonoscopy History of bilateral oophorectomy Hx of cholecystectomy S/P excision of lipoma History of total abdominal hysterectomy Hx of appendectomy Family History Father Diabetes mellitus Skin cancer Prostate cancer Mother HTN (hypertension) High cholesterol Mental health disorder Maternal Grandfather Myocardial infarction Maternal Grandmother No problems noted. Paternal Grandfather No problems noted. Paternal Grandmother Breast cancer Sister Mental health disorder Social History Household Members: None Housing: Apartment Are you a primary healthcare architect to a significant other at home: No Do you presently have visiting nurse or other home services: No Alcohol intake: never Patient Tobacco Use Status: Current everyday Tobacco user Tobacco use type: Cigarette Cigarettes Per Day: 5 Years Smoked: 20 Packs per year/per ci.00 e-Cigarette/Vaping Use: Never Used Second Hand Smoke Exposure: No Advance Directives Date on File: 10/05/16 service: No Current occupational status: disabled Sexual orientation: Straight/Heterosexual Gender identity: Female Cognitive needs: No Hearing needs: No Vision needs: Yes Questionnaire PHQ-9 Over the last 2 weeks, how often have you been bothered by any of the following problems? 1. Little interest or pleasure in doing things: nearly every day 2. Feeling down, depressed, or hopeless: nearly every day 3. Trouble falling or staying asleep, or sleeping too much: nearly every day 4. Feeling tired or having little energy: nearly every day 5. Poor appetite or overeating: nearly every day 6. Feeling bad about yourself - or that you are a failure or have let yourself or your family down: nearly every day 7. Trouble concentrating on things, such as reading the newspaper or watching television: nearly every day 8. Moving or speaking so slowly that other people could have noticed. Or the opposite - being so fidgety or restless that you have been moving around a lot more than usual: nearly every day 9. Thoughts that you would be better off or of hurting yourself in some way: more than half the days Total score: 26 Depression Screening Interpretation: Positive (denies any si or hi) Depression Screening Follow-up: Existing condition Depression Screening Done: Yes 73615 - PHQ-9 Billing: Yes Source: Developed by Drs. Deuce Worthy, Susana Bray, Edin Patton and colleagues, with an educational jin from [employer] Thrive Questionnaire Date Thrive assessed: 12/23/24 I am a: Patient What is your living situation today?: I have a steady place to live Within the past 12 months, did the food you bought not last and you didn't have the money to get more?: Never true Within the past 12 months, did you worry whether your food would run out before you got money to buy more?: Never true Do you have trouble paying for medicines?: Yes Do you have trouble getting transportation to medical appointments?: No Do you have trouble paying your heating and electricity bill?: No Do you have trouble taking care of your child, family member or friend?: No Do you have trouble with day-to-day activities such as bathing, preparing meals, shopping, managing finances, etc.?: Yes Are you currently unemployed and looking for a job?: No Are you interested in more education?: No THRIVE Score: 0 AUDIT C Alcohol Use Questionnaire (AUDIT-C) 1. How often do you have a drink containing alcohol?: Never 3. How often do you have six or more drinks on one occasion?: Never Total Score: 0 Score Reviewed/Action Taken: No JACKY-7 AMB Questionnaire JACKY-7 Date JACKY - 7 assessed: 12/23/24 Feeling nervous, anxious, or on edge: 3 = Nearly every day Not being able to stop or control worryin = Nearly every day Worrying too much about different things: 3 = Nearly every day Trouble relaxin = Nearly every day Being so restless that it is hard to sit still: 3 = Nearly every day Becoming easily annoyed or irritable: 3 = Nearly every day Feeling afraid as if something awful might happen: 3 = Nearly every day Total JACKY-7 score (0-4 normal; 5-9 mild; 10-14 moderate; 15-21 severe): 21 Source: Developed by Drs. Deuce Worthy, Susana Bray, Edin Patton and colleagues, with an educational jin from [employer] JACKY-7 Assessment Billing JACKY-7 Assessment Tool: JACKY-7 Assessment 19067 (denies any si or hi, will have our BH team contact pt) Physical exam (Primary Care) Vital Signs: Last Vital Signs Temp 98.6 F 12/23/24 11:09 Pulse 101 H 12/23/24 11:09 Resp 16 12/23/24 11:09 BP 120/70 12/23/24 11:09 Pulse Ox 95 12/23/24 11:09 Oxygen Delivery Method Room Air 12/23/24 11:09 BMI result Body Mass Index 28.0 Tobacco/Smoking Status: Tobacco use Status Tobacco use date assessed 12/23/24 12/23/24 11:13 Patient Tobacco Use Status Current everyday Tobacco 12/23/24 11:13 Tobacco use type Cigarette 12/23/24 11:13 e-Cigarette/Vaping Use Never Used 12/23/24 11:13 PHQ-9: PHQ-9 Score PHQ-9: Total score 26 12/23/24 12:05 Depression Screening Interpretation: Positive (denies any si or hi) Depression Screening Follow-up: Existing condition Thrive Assessment: Date of Thrive Assessment Date Thrive assessed 12/23/24 12/23/24 11:13 Coding Level of Care Code Est Pt Level 4 (92426) Diagnoses Dyslipidemia E78.5 Right sided abdominal pain R10.9 Additional Codes PHQ-9 - 03317 - PHQ-9 Billing: Yes ([id number]) JACKY-7 Assessment Billing - JACKY-7 Assessment Tool: JACKY-7 Assessment 31027 ([id number]) Assessment & Plan Assessment & Plan (1) Dyslipidemia: Code(s): E78.5 - Hyperlipidemia, unspecified Category: Medical (2) Right sided abdominal pain: Code(s): R10.9 - Unspecified abdominal pain Category: Medical Plan . Orders: Orders Lipid Panel Today E78.5 - Hyperlipidemia, unspecified Magnesium Today E78.5 - Hyperlipidemia, unspecified Complete Blood Count Auto Diff Today E78.5 - Hyperlipidemia, unspecified Comprehensive [place]. Panel Fast Today E78.5 - Hyperlipidemia, unspecified US abdomen limited Today R10.9 - Unspecified abdominal pain Medications: Changed From pravastatin 10 mg PO BEDTIME 90 tabs 0RF To pravastatin 20 mg PO BEDTIME 90 tabs 0RF
--- OUTSIDE RECORDS SUMMARY | 2024-12-23 11:11 | XMS_ITS | Clinical Summary ---
Author Organization [employer] Address [address] [facility] [facility] [address] [place] [address] Care Team Providers Care New Accounts Representative Name Role Phone Unavailable Primary Care [...] Office Visit [facility] [address] [place] [id number] Debby Escamilla, OD Dry eyes, bilateral (Primary [...] Visit [facility] [address] [place] [address] Pily Perkins, OD [address] [place] [address] Health Maintenance Due Date Last Done Comments [...] patient's age to complete this topic Insurance [facility] ACO [address] [place] [phone]
--- OUTSIDE RECORDS SUMMARY | 2024-12-23 11:11 | XMS_ITS | Encounter Summary ---
Author Organization [facility], Address [address] [place] [address] Phone Care Team Providers Care Cook Camp Name Role Phone Raymundo Mcdonald NP Primary Care Provider [phone] Encounter Details Date Type Department Care Team (Late st Contact Info) Description 10/10/2023 Documentation Only [facility], [address] [place] [address] [place], [place] [address] [place] [address] Social History Tobacco Use Types [...] on filedocumented in this encounter Care Teams Cook Camp Relationship Specialty Start Date End Date Raymundo Mcdonald NP [address] [place] [address] PCP - General Nurse Practitioner 10/10/23 documented as of this encounter
--- OUTSIDE RECORDS SUMMARY | 2024-12-23 11:11 | XMS_ITS | Clinical Summary ---
Author Organization [facility], Address [address] [place] [address] [place] [address] Phone Care Team Providers Care Junior Systems Administrator Name Role Phone Raymundo Mcdonald NP Primary Care Provider [phone] Allergies Active Allergy Reactions Criticality Noted Date [...] 017 Influenza Vaccine (Season Ended) 2025 Insurance [facility] Medicaid Care Teams Junior Systems Administrator Relationship Specialty Start Date End Date Raymundo Mcdonald NP [address] [place] [address] PCP - General Nurse Practitioner 10/10/23
--- OUTSIDE RECORDS SUMMARY | 2024-12-23 11:11 | XMS_ITS | Clinical Summary ---
Author Organization [facility] [facility] Address [address] [place] [address] Care Team Providers Care Developer Analyst Name Role Phone Cr Madera MD Primary Care Provider [phone] Surgical History Surgery Date Site/Laterality Comments VENTRAL HERNIA REPAIR PROCEDURE: HISTORICAL VTRL WALL HERNIA RE APPENDECTOMY PROCEDURE: HISTORICAL APPENDECTOMY; COMMENT: w/ incisional hernia repair HYSTERECTOMY PROCEDURE: HISTORICAL TOTAL HYSTERECTOMY WITH BSO HERNIA REPAIR PROCEDURE: [place] REPAIR FIRST ABDOMINAL WALL HERNIA Medical History [...] age to complete this topic Care Teams Developer Analyst Relationship Specialty Start Date End Date Cr Madera MD [address] [place] [address] PCP - General Internal Medicine 07/05/17
== END 2024-12-23 12:23 | disposition home or self-care (01) ==
LOC: HO.HMCC 11:08
PROVIDERS: PCP Nurse Practitioner Family; Visit Provider Nurse Practitioner Family
DX: E78.5 Hyperlipidemia, unspecified (principal); R10.9 Unspecified abdominal pain

== ENCOUNTER 2024-12-24 10:18 | Outpatient (AMB) | payer OTHER, SELFPAY ==
[2024-12-24 10:38] VITALS: BP 120/74; PULSE 94; O2SAT 97; BMI 28.1
--- NOTE | 2024-12-24 10:38 | A.OFFVIS_ITS ---
Vital Signs 12/24/24 10:38 Height 5 ft 3 in Weight 158 lb 11.725 oz BMI 28.1 BP 120/74 Blood Pressure Location Lt brachial Position Sitting Pulse 94 Pulse Source Pulse Oximeter Pulse Oximetry (%) 97 Oxygen Delivery Method Room Air Intake Visit Reasons: History of thyroid cancer Intake Note: Patient present today for history of thyroid cancer office visit. Secretary Bookkeeper Required: Yes Secretary Bookkeeper Language: Nurse Ob Services: Secretary Bookkeeper Present Secretary Bookkeeper Name: Niurka [phone] Information Interpreted: non-clinical & clinical Accompanied by: Self / Same As Patient Allergies Sulfa (Sulfonamide Antibiotics) [SULFA (SULFONAMIDE ANTIBIOTICS)] Allergy (Intermediate, Verified 12/24/24 10:43) HIVES Latex, Natural Rubber Allergy (Mild, Verified 12/24/24 10:43) Rash egg Allergy (Verified 12/24/24 10:43) Abdominal Pain strawberry Allergy (Verified 12/24/24 10:43) Abdominal Pain aspirin [ASPIRIN] Adverse Reaction (Intermediate, Verified 12/24/24 10:43) ABD PAIN morphine [MORPHINE] Adverse Reaction (Intermediate, Verified 12/24/24 10:43) Abdominal Pain almond Allergy (Severe, Uncoded 12/24/24 10:43) Stomack pain Lactose intollerance Allergy (Severe, Uncoded 12/24/24 10:43) Stomach pain, nausceau Medication List - Last Reconciled 12/24/24 by Angelina Cohen MD albuterol sulfate 2.5 mg (3 mL) inhalation DAILY PRN amitriptyline 50 mg (2 x 25 mg) PO BEDTIME 30 days amlodipine 10 mg PO DAILY azelastine 1 spray intranasal BID cane Quad cane cholecalciferol (vitamin D3) 25 mcg PO DAILY clonazepam 0.5 mg PO DAILY PRN clonazepam 1 mg PO BEDTIME PRN cyproheptadine 4 mg PO BEDTIME PRN 30 days diclofenac sodium 1% 2 grams topical BID PRN NS diclofenac sodium 50 mg PO BID PRN famotidine 40 mg PO BEDTIME gabapentin 800 mg PO TID galcanezumab-gnlm (Emgality Pen) 120 mg subcut Q30D hydrocortisone 2.5% 1 appl ME Q8-12H hydrocortisone acetate (Anusol-HC) 25 mg ME BID PRN hyoscyamine sulfate 0.125 mg PO BID-QID lansoprazole 30 mg PO DAILY linaclotide 290 mcg PO DAILY loratadine 10 mg PO DAILY memantine 10 mg PO Q OTHER DAY mometasone-formoterol 200-5 mcg/actuation (Dulera) 2 puffs inhalation Q12H 30 days montelukast 10 mg PO BEDTIME multivitamin with folic acid 400 mcg (Daily-Laxmi (with folic acid)) 1 tab PO DAILY naloxone 4 mg/actuation (Narcan) 1 spray intranasal Q2M omega-3 acid ethyl esters 1 cap PO BID 90 days ondansetron 8 mg PO Q8H PRN oxycodone 5 mg PO BID PRN 10 days polyethylene glycol 3350 (Gavilax) 17 grams PO DAILY potassium chloride ER 30 mEq PO DAILY pravastatin 20 mg PO BEDTIME prazosin 1 mg PO DAILY rizatriptan 10 mg PO DAILY PRN romosozumab-aqqg (Evenity) 210 mg subcut Q28D sennosides (Senna Laxative) 17.2 mg (2 x 8.6 mg) PO BEDTIME sertraline 100 mg PO DAILY Shower Chair As directed spironolactone 25 mg PO DAILY tizanidine 4 mg PO BID PRN HPI Comments Details: 59 year-old female with past medical history nontoxic multinodular goiter who is seen in follow-up today for 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 Daryl Hennessy at [facility], with pathology showing papillary microcarcinoma, with no angioinvasion, no ly mphatic invasion, no extrathyroidal extension, DENIS low risk of recurrence, AJCC stage I pT1a NX. She has right-sided subcentimeter thyroid nodules that we are following. See with the help of sponge press operator Noelle Sees Dr. Valdes for osteporosis and hyperparathyrodidism on Evenity not addressed today. She is following with Dr. Valdes for this. HPI from prior visit 2019: patient was seen initially for 3.2 cm left-sided thyroid lobe nodule and underwent FNA with benign cytology. She complained of compressive symptoms in this was referred to Dr. Hennessy for surgical thyroidectomy. She also was found to have laboratory evidence of primary hyperparathyroidism. 01/15/2019: She underwent left hemithyroidectomy with bilateral inferior parathyroidectomy . With surgical pathology revealed papillary microcarcinoma of the thyroid, 0.4 cm, unifocal, no angio invasion or lymphatic invasion, no extrathyroidal extension. PT1a pNX. , AJCC stage I, DENIS low risk of recurrence No additional treatment was recommended. Surgical pathology from her parathyroid glands revealed a right inferior parathyroid to have normocellular pathology, and the left inferior parathyroid gland to be hypercellular. The right inferior parathyroid weight 200 mg with the left inferior parathyroid weighing 160 mg. Immediate postoperative PTH was 23. No intraoperative PTH was assessed. She did initially request completion thyroidectomy, but after consultation with Dr. Hennessy she has decided against this and wishes to instead proceed with yearly surveillance of her R sided thyroid nodules. 2019: thyroid US revealed interval growth of a nodule on in the R lobe, and a newly identified complex cystic subcentimeter nodule within the R lobe. 04/23/2020: FNA biopsy of this R sided nodule with benign cytology. 05/27/2021: Ultrasound of the thyroid showed Stable right-sided subcentimeter thyroid nodules. 04/18/2022: Ultrasound of the thyroid showed Stable right-sided thyroid nodules 03/20/2023: Ultrasound of the thyroid showed stable subcentimeter right-sided nodules 02/14/2024: Ultrasound of the thyroid Right superior subcentimeter solid isoechoic TR 3 nodule, which is new, right midpole subcentimeter 0.9 cm nodule solid, isoechoic, with punctate echogenic foci, TR 4 category which remained stable in size, right lower pole subcentimeter nodule not seen anymore. Last set of thyroid labs done from June 2024 within normal limits. Interval history Last visit in October 2024 she was complaining Right side of the neck hurts for the past 2 weeks She was also complaining of the sensation of swelling in her neck. Labs were repeated and were largely unchanged. Following with GI, upper GI series showed gastroesophageal reflux with hiatal hernia. Has constipation Intermittent palpitations and tremors 11/21/2024: Ultrasound of the thyroid, I reviewed the images myself, left thyroid lobe is surgically absent, right thyroid nodules are subcentimeter and low risk. Do not meet criteria for FNA. 12/05/2024: Normal TSH Physical exam General: sitting comfortably in no acute distress HEENT: normocephalic/atraumatic Neck: supple, no palpable lymph nodes Cardiac: normal heart sounds Pulm: normal breath sounds B/L, no added breath sounds Abd: not distended, no tenderness Extremities: no edema, no signs of myxedema Laboratory Tests 03/17/20 12/29/20 01/06/21 09:40 13:50 12:55 Free T4 1.10 1.13 TSH 0.94 0.91 04/23/21 08/24/21 10/11/21 11:25 10:46 11:39 Free T4 1.23 1.06 1.04 TSH 2.30 1.54 2.49 06/27/22 11/10/22 11/25/22 06:25 11:14 12:48 Free T4 1.31 0.94 TSH 2.17 1.85 2.30 03/20/23 06/30/23 12/29/23 13:36 08:43 10:04 Free T4 1.03 1.00 TSH 1.12 2.83 1.30 07/04/24 08:52 Free T4 0.94 TSH 1.53 Laboratory Tests 12/05/24 08:59 TSH 0.76 EXAMINATION: US THYROID 11/21/24 HISTORY: Z85.850 - Personal history of malignant neoplasm of thyroid TECHNIQUE: Real-time grayscale ultrasound imaging was performed and images were reviewed. COMPARISON: Comparison is made with the prior examination dated 02/14/2024. FINDINGS: SIZE: The right thyroid lobe measures 5.7 x 2.6 x 2.0 cm. The left thyroid lobe is surgically absent. The isthmus measures 4 mm. FLOW: Flow to the gland is normal. ECHOGENICITY: The echotexture of the gland is homogeneous. NODULES: There are multiple right thyroid nodules as described below: Nodule #: 1 Location: Upper pole measuring 8 x 5 x 7 mm (previously 9 x 5 x 6 mm). Shape: Wider than tall (0 points) Margins: Smooth (0 points) Echotexture: Hypoechoic (2 points) Composition: Solid (2 points) Calcifications: None (0 points) Total points: 5 TIRADS: TR4: Moderately suspicious. Nodule #: 2 Location: Upper pole measuring 3 x 3 x 3 mm (previously 5 x 3 x 4 mm). Shape: Round (0 points) Margins: Smooth (0 points) Echotexture: n/a Composition: Spongiform (0 points) Calcifications: None (0 points) Total points: 0 TIRADS: TR1: Benign Nodule #: 3 Location: Upper pole measuring 2 x 1 x 2 mm, not seen previously Shape: Wider than tall (0 points) Margins: Smooth (0 points) Echotexture: Anechoic (0 points) Composition: Cystic (0 points) Calcifications: None (0 points) Total points: 0 TIRADS: TR1: Benign US/US thyroid IMPRESSION: Status post left thyroidectomy. Right thyroid nodules as described. US THYROID 02/14/24 CLINICAL INFORMATION: Nontoxic multinodular goiter. COMPARISON: Ultrasound thyroid 03/20/2023 and 04/18/2022. CT neck 10/19/2018. TECHNIQUE: Linear transducer grayscale and color Doppler examination with attention to the region of the thyroid. FINDINGS: SIZE: Measurements of the thyroid lobes and nodules are given in sagittal, anteroposterior and transverse dimensions respectively. Right Thyroid Lobe: 4.9 x 2.4 x 2.2 cm, volume 13.5 mL. Previously 5.3 x 2.6 x 1.9 cm, volume 13.7 mL. Parenchyma: The gland echotexture is mildly mildly heterogeneous. Thyroid vascularity is normal. Left Thyroid Lobe: Surgically absent. Isthmus: 0.3 cm in maximum AP dimension. Previously 0.4 cm. Estimated total number of nodules greater than or equal to 1 cm: 0. Medical Billing Assistant nodules are described as follows: 1. Location: Right upper. Size: 0.5 x 0.3 x 0.4 cm, volume 0.03 mL. Previously: Not seen on previous exam. Nodule characteristics: Composition: Solid (2). Echogenicity: Isoechoic (1). Shape: Not taller than wide (0). Margins: Smooth (0). Echogenic Foci: None (0). ACR TI-RADS total points: 3 Previous: N/A ACR TI-RADS category: 3 Previous: N/A 2. Location: Right mid pole. Size: 0.9 x 0.5 x 0.6 cm, volume 0.1 mL. Previously: 0.8 x 0.5 x 0.7 cm, volume 0.1 mL. Nodule characteristics: Composition: Solid (2). Echogenicity: Isoechoic (1). Shape: Not taller than wide (0). Margins: Smooth (0). Echogenic Foci: Punctate echogenic foci (3). ACR TI-RADS total points: 6 Previous: 3 ACR TI-RADS category: 4 Previous: 3 Significant change in size (>/= 20% in 2 dimensions and minimal increase of 2 mm or 50% or greater increase in volume): Change in features: Change in ACR TI-RADS risk category: 3. Location: Right lower pole. Size: Not seen on current exam Previously: 0.2 x 0.3 x 0.4 cm, volume 0.01 mL. Nodule characteristics: ACR TI-RADS total points: N/A Previous: 2 ACR TI-RADS category: N/A Previous: 2 NODES: No lymphadenopathy is seen in the tissue surrounding the thyroid gland. US/US thyroid IMPRESSION: History of left hemithyroidectomy. Right mid 0.9 cm TR 4 thyroid nodule is stable in size. Right upper 0.5 cm TR 3 thyroid nodule was not identified on the prior exam. Enlarged, diffusely heterogeneous thyroid gland. US THYROID 03/20/23 CLINICAL INFORMATION: Personal history of malignant neoplasm of thyroid. COMPARISON: Ultrasound thyroid 04/18/2022 and 05/27/2021. CT soft tissue neck with contrast 10/09/2018. TECHNIQUE: Linear transducer grayscale and color Doppler examination with attention to the region of the thyroid. FINDINGS: SIZE: Measurements of the solitary right thyroid lobe and nodules are given in sagittal, anteroposterior and transverse dimensions respectively. Right Thyroid Lobe: 5.3 x 2.6 x 1.9 cm, volume 13.7 mL. Previously 5.2 x 2.3 x 2.1 cm, volume 13.1 mL. Parenchyma: The gland echotexture is homogeneous. Thyroid vascularity is normal. Left Thyroid Lobe: Surgically absent. Isthmus: 0.4 cm in maximum AP dimension. Previously 0.3 cm. Estimated total number of nodules greater than or equal to 1 cm: 0. Medical Billing Assistant nodules are described as follows: 1. Location: Right mid. Size: 0.8 x 0.5 x 0.7 cm, volume 0.1 mL. Previously: 0.8 x 0.8 x 0.5 cm, volume 0.1 mL. Nodule characteristics: Composition: Solid (2). Echogenicity: Isoechoic (1). Shape: Not taller than wide (0). Margins: Smooth (0). Echogenic Foci: Comet-tail artifacts (0). ACR TI-RADS total points: 3 Previous: 4 ACR TI-RADS category: 3 Previous: 4 2. Location: Right inferior. Size: 0.3 x 0.3 x 0.4 cm, volume 0.02 mL. Previously: 0.4 x 0.4 x 0.3 cm, volume 0.02 mL. Nodule characteristics: Composition: Cystic(0). ACR TI-RADS total points: 0 Previous: 0 ACR TI-RADS category: 1 Previous: 1 3. Location: Right inferior. Size: 0.2 x 0.3 x 0.4 cm, volume 0.01 mL. Previously: 0.3 x 0.3 x 0.2 cm, volume 0.01 mL. Nodule characteristics: Composition: Mixed cystic and solid (1). Echogenicity: Cannot be determined (1). Shape: Not taller than wide (0). Margins: Smooth (0). Echogenic Foci: None (0). ACR TI-RADS total points: 2 Previous: 0 ACR TI-RADS category: 2 Previous: 1 NODES: No lymphadenopathy is seen in the tissue surrounding the thyroid gland. US/US thyroid IMPRESSION: The left thyroid lobe is surgically absent. Right thyroid lobe remains enlarged. Redemonstration of multiple subcentimeter thyroid nodules, largest right mid pole 0.8 cm TR4 is stable in size. US THYROID 04/18/22 CLINICAL INFORMATION: Goiter. COMPARISON: Ultrasound thyroid 05/27/2021. TECHNIQUE: Linear transducer degroot-scale and color Doppler examination with attention to the region of the thyroid. FINDINGS: SIZE: Measurements of the thyroid lobes and nodules are given in sagittal, anteroposterior and transverse dimensions respectively. Right Thyroid Lobe: 5.2 x 2.3 x 2.1 cm, volume 13.1 mL. Previously 5.5 x 2.2 x 2.4 cm, volume 15.2 mL. Parenchyma: The gland echotexture is homogeneous. Thyroid vascularity is normal. Left Thyroid Lobe: Left thyroid removed. Isthmus: 0.3 cm in maximum AP dimension. Previously 0.3 cm. Estimated total number of nodules greater than or equal to 1 cm: 0. Medical Billing Assistant nodules are described as follows: 1. Location: Right mid lateral. Size: 0.8 x 0.8 x 0.5 cm, volume 0.17 mL. Previously: 0.9 x 0.5 x 0.7 cm, volume 0.16 mL. Nodule characteristics: Composition: Solid (2). Echogenicity: Hypoechoic (2). Shape: Not taller than wide (0). Margins: Smooth (0). Echogenic Foci: None (0). ACR TI-RADS total points: 4 Previous: 4 ACR TI-RADS category: 4 Previous: 4 Significant change in size (>/= 20% in 2 dimensions and minimal increase of 2 mm or 50% or greater increase in volume): None. Change in features: None. Change in ACR TI-RADS risk category: None. 2. Location: Right lower pole. Size: 0.4 x 0.4 x 0.3 cm, volume 0.02 mL. Previously: 0.4 x 0.4 x 0.5 cm, volume 0.04 mL. Nodule characteristics: Composition: Cystic(0). ACR TI-RADS total points: 0 Previous: 0 ACR TI-RADS category: 1 Previous: 0 Significant change in size (>/= 20% in 2 dimensions and minimal increase of 2 mm or 50% or greater increase in volume): None. Change in features: None. Change in ACR TI-RADS risk category: None. 3. Location: Right lower pole. Size: 0.3 x 0.3 x 0.2 cm, volume 0.01 mL. Previously: 0.5 x 0.3 x 0.3 cm, volume 0.02 mL. Nodule characteristics: Composition: Cystic(0). ACR TI-RADS total points: 0 Previous: 0 ACR TI-RADS category: 1 Previous: 1 Significant change in size (>/= 20% in 2 dimensions and minimal increase of 2 mm or 50% or greater increase in volume): None. Change in features: None. Change in ACR TI-RADS risk category: None. NODES: No lymphadenopathy is seen in the tissue surrounding the thyroid gland. US/US thyroid IMPRESSION: Multiple pulmonary nodules, the largest measured are stable. The left lobe has been removed. The right lobe is enlarged and unchanged to previous study. Thyroid US: 05/27/2021 Right Thyroid Lobe: 5.5 x 2.2 x 2.4 cm, volume 15.2 mL. Previously 5.5 x 2.2 x 2.4 cm, volume 15.2 mL. Parenchyma: The gland echotexture is homogeneous. Thyroid vascularity is increased. Left Thyroid Lobe: Surgically absent. Isthmus: 0.3 cm in maximum AP dimension. Previously 0.2 cm. Estimated total number of nodules greater than or equal to 1 cm: 0. Medical Billing Assistant nodules are described as follows: 1.? Location: Right mid lateral. ?? ? Size: 0.9 x 0.5 x 0.7 cm, volume 0.16 mL. ?? ? Previously: 1.0 x 0.7 x 0.6 cm, volume 0.22 mL. ?? ? Nodule characteristics: ?? ? Composition: Solid (2). ?? ? Echogenicity: Hypoechoic (2). ?? ? Shape: Not taller than wide (0). ?? ? Margins: Smooth (0). ?? ? Echogenic Foci: None (0). ? ACR TI-RADS total points: 4 ?? ? ACR TI-RADS category: 4 ? Significant change in size (>/= 20% in 2 dimensions and minimal increase of 2 mm or 50% or greater increase in volume): No ?? ? Change in features: No ?? ? Change in ACR TI-RADS risk category: No 2.? Location: Right inferior. ?? ? Size: 0.4 x 0.4 x 0.5 cm, volume 0.04 mL. ?? ? Previously: New since the prior study. ?? ? Nodule characteristics: ?? ? Composition: Cystic(0). ?? ? ACR TI-RADS total points: 0 ?? ? ACR TI-RADS category: 1 ?? ? 3.? Location: Right inferior. ?? ? Size: 0.5 x 0.3 x 0.3 cm, volume 0.02 mL. ?? ? Previously: 0.3 x 0.3 x 0.4 cm, volume 0.02 mL. ?? ? Nodule characteristics: ?? ? Composition: Cystic(0). ?? ? ACR TI-RADS total points: 0 ?? ? ACR TI-RADS category: 1 ? Significant change in size (>/= 20% in 2 dimensions and minimal increase of 2 mm or 50% or greater increase in volume): ?? ? Change in features: ?? ? Change in ACR TI-RADS risk category: NODES: No lymphadenopathy is seen in the tissue surrounding the thyroid gland. [facility] Medical History Low vitamin B12 level Smoker Numbness Wheezing Chronic radicular pain of lower back Foot pain, bilateral Joint pain in both hands Breast pain Hypokalemia Breast pain, right Allergies Migraines Renal calculi Bipolar disorder Chronic abdominal pain Osteoporosis Hyperparathyroidism Multinodular thyroid Depression Fibromyalgia Thrombocytosis Leukocytosis GERD (gastroesophageal reflux disease) Thyroid cancer PONV (postoperative nausea and vomiting) Elevated cholesterol Difficulty swallowing Vitamin D deficiency Anxiety Pulmonary nodule Asthma HTN (hypertension) Surgical History H/O pyloroplasty (03/27/24) History of excision of mass Hx of thyroidectomy H/O esophagogastroduodenoscopy H/O colonoscopy History of bilateral oophorectomy Hx of cholecystectomy S/P excision of lipoma History of total abdominal hysterectomy Hx of appendectomy Family History Father Diabetes mellitus Skin cancer Prostate cancer Mother HTN (hypertension) High cholesterol Mental health disorder Maternal Grandfather Myocardial infarction Maternal Grandmother No problems noted. Paternal Grandfather No problems noted. Paternal Grandmother Breast cancer Sister Mental health disorder Social History Household Members: None Housing: Apartment Are you a primary medicare contact specialist to a significant other at home: No Do you presently have visiting nurse or other home services: No Alcohol intake: never Patient Tobacco Use Status: Current everyday Tobacco user Tobacco use type: Cigarette Cigarettes Per Day: 5 Years Smoked: 20 e-Cigarette/Vaping Use: Never Used Second Hand Smoke Exposure: No Advance Directives Date on File: 10/05/16 service: No Current occupational status: disabled Sexual orientation: Straight/Heterosexual Gender identity: Female Cognitive needs: No Hearing needs: No Vision needs: Yes Physical Exam Vital Signs: Last Vital Signs Pulse 94 12/24/24 10:38 BP 120/74 12/24/24 10:38 Pulse Ox 97 12/24/24 10:38 Oxygen Delivery Method Room Air 12/24/24 10:38 BMI result Body Mass Index 28.1 Assessment & Plan Assessment & Plan (1) History of thyroid cancer: Code(s): Z85.850 - Personal history of malignant neoplasm of thyroid Category: Medical Plan: 59 year-old female with past medical history nontoxic multinodular goiter who is seen in follow-up today for 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 Daryl Hennessy at [facility], with pathology showing papillary microcarcinoma, with no angioinvasion, no lymphatic invasion, no extrathyroidal extension, DENIS low risk of recurrence, AJCC stage I pT1a NX. She has right-sided subcentimeter thyroid nodules that we are following. In 2019 she underwent an FNA biopsy of 1 of her right-sided nodules due to interval size increase. Subsequently she has had many surveillance ultrasounds since then. thyroid ultrasound from February 2024 showed stable size of the subcentimeter right-sided nodules. 11/21/2024: Ultrasound of the thyroid, I reviewed the images myself, left thyroid lobe is surgically absent, right thyroid nodules are subcentimeter and low risk. Do not meet criteria for FNA. 12/05/2024: Normal TSH She does have some compressive symptoms, some worsening dysphagia, she is following with the GI and upper GI series evaluation pointed towards reflux and hiatal hernia.. At this time I will plan to repeat an ultrasound especially in the light of compressive symptoms. She did not require levothyroxine after her surgery, and has remained biochemically euthyroid, last set of labs was from December 27. We will plan to follow up with her in 1 year with a repeat ultrasound and labs.. Plan: -ordered ultrasound of the of the thyroid to be done in December 2025 -ordered TSH, free T4 to be done in December 2025 -follow up in 1 year (2) Multinodular thyroid: Code(s): E04.2 - Nontoxic multinodular goiter Category: Medical Plan: See above Plan see above Orders: Orders US thyroid 11/17/25 E04.2 - Nontoxic multinodular goiter, Z85.850 - Personal history of malignant neoplasm of thyroid Thyroid Stimulating Hormone 11/17/25 E04.2 - Nontoxic multinodular goiter, Z85.850 - Personal history of malignant neoplasm of thyroid Free T4 (Free Thyroxine) 11/17/25 E04.2 - Nontoxic multinodular goiter, Z85.850 - Personal history of malignant neoplasm of thyroid Patient Instructions: Do ultrasound of the thyroid in November 2025, someone will call you to schedule this Do blood work in November 2025, orders in place Follow up in 1 year with me in December 2025 to discuss results Se realizar? julian ecograf?a de tiroides en 2025. Se le llamar? para programarla. Se realizar?n an?lisis de chris en 2025. Ya tenemos las ?rdenes. Se realizar? julian hugo de seguimiento conmigo en [email or web address] para hablar sobre los resultados dentro de un a?o. Coding Level of Care Code Est Pt Level 3 (18558) Diagnoses History of thyroid cancer Z85.850 Multinodular thyroid E04.2
--- OUTSIDE RECORDS SUMMARY | 2024-12-24 11:58 | XMS_ITS | Clinical Summary ---
Author Organization [employer] Address [address] [facility] [address] [place] [address] Care Team Providers Care Candy Cooker Helper Name Role Phone Unavailable Primary Care [...] Description 10/30/2024 3:45 PM EST Office Visit [facility] [address] [place] [id number] Debby Escamilla, OD Dry eyes, bilateral (Primary [...] Description 01/28/2025 1:00 PM EDT Office Visit [facility] [address] [place] [address] Pily Perkins, OD [address] [place] [address] Health Maintenance Due Date Last Done Comments [...] Insurance [facility] [address] [place] [id number]
--- OUTSIDE RECORDS SUMMARY | 2024-12-24 11:58 | XMS_ITS | Clinical Summary ---
Author Organization [facility], Address [address] [place] [address] [place] [address] Phone Care Team Providers Care Cnc Maintenance Technician Name Role Phone Raymundo Mcdonald NP Primary Care Provider [phone] Allergies Active Allergy Reactions Criticality Noted Date [...] 017 Influenza Vaccine (Season Ended) 2025 Insurance [facility] Medicaid Care Teams Cnc Maintenance Technician Relationship Specialty Start Date End Date Raymundo Mcdonald NP [address] [place] [address] PCP - General Nurse Practitioner 10/10/23
--- OUTSIDE RECORDS SUMMARY | 2024-12-24 11:58 | XMS_ITS | Encounter Summary ---
Author Organization [facility], Address [address] [place] [address] Phone Care Team Providers Care Eating Disorder Specialist Name Role Phone Raymundo Mcdonald NP Primary Care Provider [phone] Encounter Details Date Type Department Care Team (Late st Contact Info) Description 10/10/2023 Documentation Only [facility], [address] [place] [address] [place], [place] [address] [place] [address] Social History Tobacco Use Types [...] on filedocumented in this encounter Care Teams Eating Disorder Specialist Relationship Specialty Start Date End Date Raymundo Mcdonald NP [address] [place] [address] PCP - General Nurse Practitioner 10/10/23 documented as of this encounter
--- OUTSIDE RECORDS SUMMARY | 2024-12-24 11:58 | XMS_ITS | Clinical Summary ---
Author Organization [facility] Address [address] [place] [address] Care Team Providers Care Oven Equipment Repairer Name Role Phone Cr Madera MD Primary Care Provider [phone] Surgical History Surgery Date Site/Laterality Comments VENTRAL [...] age to complete this topic Care Teams Oven Equipment Repairer Relationship Specialty Start Date End Date Cr Madera MD [address] [place] [address] PCP - General Internal Medicine 07/05/17
== END 2024-12-24 11:14 | disposition home or self-care (01) ==
LOC: HO.ENCR 10:19
PROVIDERS: PCP Nurse Practitioner Family; Visit Provider Student in an Organized Health Care Education/Training Program
DX: Z85.850 Personal history of malignant neoplasm of thyroid (principal); E04.2 Nontoxic multinodular goiter
CPT/HCPCS: 99213

== ENCOUNTER → 2024-12-24 10:18 | Outpatient (BNVA) | payer OTHER, SELFPAY | PROVIDERS: PCP Nurse Practitioner Family; Visit Provider Student in an Organized Health Care Education/Training Program | DX: E04.2 Nontoxic multinodular goiter (principal); Z85.850 Personal history of malignant neoplasm of thyroid | CPT/HCPCS: 99212 ==

== ENCOUNTER 2024-12-24 11:26 | Outpatient (REF) | payer OTHER, SELFPAY ==
--- NOTE | ~2024-12-24 | XR_ITS ---
CLINICAL HISTORY: D72.829 - Elevated white blood cell count, unspecified Two views of the chest. COMPARISON: None FINDINGS: Normal heart and mediastinal contours. No consolidation. No pleural effusion or pneumothorax. No fracture identified. IMPRESSION: 1. No consolidation. This document has been electronically signed by: Osmel Andrea MD on 12/25/2024 13:02:11
[2024-12-24 12:35] LABS: Anion Gap 16 (12-20); C Reactive Protein 0.18 mg/dL (< or = 0.50); Carbon Dioxide 22 mmol/L (22-29); Chloride 105 mmol/L (96-108); Potassium 3.9 mmol/L (3.3-5.1); Sodium 139 mmol/L (135-145)
[2024-12-24 12:49] LABS: Erythrocyte Sedimentation Rate 5 MM/HR (0-20)
--- OUTSIDE RECORDS SUMMARY | 2024-12-24 13:46 | XMS_ITS | Clinical Summary ---
Author Organization [facility], Address [address] [place] [address] [place] [address] Phone Care Team Providers Care Stem Frazer Name Role Phone Raymundo Mcdonald NP Primary Care Provider [phone] Allergies Active Allergy Reactions Criticality Noted Date [...] 017 Influenza Vaccine (Season Ended) 2025 Insurance [facility] Medicaid Care Teams Stem Frazer Relationship Specialty Start Date End Date Raymundo Mcdonald NP [address] [place] [address] PCP - General Nurse Practitioner 10/10/23
--- OUTSIDE RECORDS SUMMARY | 2024-12-24 13:46 | XMS_ITS | Clinical Summary ---
Author Organization [facility] Address [address] [facility] 7t [place] [address] Care Team Providers Care Torch Solderer Name Role Phone Unavailable Primary Care Provider [...] 3:45 PM EST Office Visit [facility] [address] [place] [address] Debby Escamilla, OD Dry eyes, bilateral (Primary [...] 1:00 PM EDT Office Visit [facility] [address] [place] [address] Pily Perkins, OD [address] [place] [address] Health Maintenance Due Date Last Done Comments [...] patient's age to complete this topic Insurance [facility] [address] [place] [id number]
--- OUTSIDE RECORDS SUMMARY | 2024-12-24 13:46 | XMS_ITS | Encounter Summary ---
Author Organization [facility], Address [address] [place] [address] Phone Care Team Providers Care Card Seller Name Role Phone Raymundo Mcdonald NP Primary Care Provider [phone] Encounter Details Date Type Department Care Team (Late st Contact Info) Description 10/10/2023 Documentation Only [facility], [address] [place] [address] [place], [place] [address] [place] [address] Social History Tobacco Use Types [...] on filedocumented in this encounter Care Teams Card Seller Relationship Specialty Start Date End Date Raymundo Mcdonald NP [address] [place] [address] PCP - General Nurse Practitioner 10/10/23 documented as of this encounter
--- OUTSIDE RECORDS SUMMARY | 2024-12-24 13:46 | XMS_ITS | Clinical Summary ---
Author Organization [facility] Address [address] [place] [address] Care Team Providers Care Data Entry Coordinator Name Role Phone Cr Madera MD Primary Care Provider [phone] Surgical History Surgery Date Site/Laterality Comments VENTRAL [...] age to complete this topic Care Teams Data Entry Coordinator Relationship Specialty Start Date End Date Cr Madera MD [address] [place] [address] PCP - General Internal Medicine 07/05/17
== END 2024-12-24 11:27 | disposition home or self-care (01) ==
LOC: HO.XRAY 11:26
PROVIDERS: Internal Medicine Nephrology; PCP Nurse Practitioner Family; Visit Provider Nurse Practitioner Family
DX: E87.6 Hypokalemia (principal); R30.0 Dysuria; D72.829 Elevated white blood cell count, unspecified
CPT/HCPCS: 36415; 71046; 80051; 85652; 86140; 87086

== ENCOUNTER → 2024-12-24 11:54 | Outpatient (BNV) | payer OTHER, SELFPAY | PROVIDERS: PCP Nurse Practitioner Family; Visit Provider Radiology Diagnostic Radiology | DX: D72.829 Elevated white blood cell count, unspecified (principal) | CPT/HCPCS: 71046 ==

== ENCOUNTER 2024-12-26 13:14 | Outpatient (AMB) | payer OTHER, SELFPAY ==
[2024-12-26 13:16] VITALS: BP 114/64; PULSE 103; O2SAT 94; BMI 28.3
--- NOTE | 2024-12-26 13:16 | HO.NEPHOV ---
Vital Signs 12/26/24 13:16 Height 5 ft 3 in Weight 159 lb 8 oz BMI 28.3 BP 114/64 Blood Pressure Location Rt brachial Position Sitting Pulse 103 H Pulse Source Pulse Oximeter Pulse Oximetry (%) 94 Oxygen Delivery Method Room Air Intake Visit Reasons: 2 MO FU Public Policy Coordinator Required: Yes Public Policy Coordinator Language: Service Specialist Name: Cookie([id number]) Allergies Sulfa (Sulfonamide Antibiotics) [SULFA (SULFONAMIDE ANTIBIOTICS)] Allergy (Intermediate, Verified 12/26/24 13:20) HIVES Latex, Natural Rubber Allergy (Mild, Verified 12/26/24 13:20) Rash egg Allergy (Verified 12/26/24 13:20) Abdominal Pain strawberry Allergy (Verified 12/26/24 13:20) Abdominal Pain aspirin [ASPIRIN] Adverse Reaction (Intermediate, Verified 12/26/24 13:20) ABD PAIN morphine [MORPHINE] Adverse Reaction (Intermediate, Verified 12/26/24 13:20) Abdominal Pain almond Allergy (Severe, Uncoded 12/26/24 13:20) Stomack pain Lactose intollerance Allergy (Severe, Uncoded 12/26/24 13:20) Stomach pain, nausceau Medication List - Last Reconciled 12/26/24 by Jayant Damon MD albuterol sulfate 2.5 mg (3 mL) inhalation DAILY PRN amitriptyline 50 mg (2 x 25 mg) PO BEDTIME 30 days amlodipine 10 mg PO DAILY azelastine 1 spray intranasal BID cane Quad cane cholecalciferol (vitamin D3) 25 mcg PO DAILY clonazepam 0.5 mg PO DAILY PRN clonazepam 1 mg PO BEDTIME PRN cyproheptadine 4 mg PO BEDTIME PRN 30 days diclofenac sodium 1% 2 grams topical BID PRN NS diclofenac sodium 50 mg PO BID PRN famotidine 40 mg PO BEDTIME gabapentin 800 mg PO TID galcanezumab-gnlm (Emgality Pen) 120 mg subcut Q30D hydrocortisone 2.5% 1 appl WY Q8-12H hydrocortisone acetate (Anusol-HC) 25 mg W[place] BID PRN hyoscyamine sulfate 0.125 mg PO BID-QID lansoprazole 30 mg PO DAILY linaclotide 290 mcg PO DAILY loratadine 10 mg PO DAILY memantine 10 mg PO Q OTHER DAY mometasone-formoterol 200-5 mcg/actuation (Dulera) 2 puffs inhalation Q12H 30 days montelukast 10 mg PO BEDTIME multivitamin with folic acid 400 mcg (Daily-Laxmi (with folic acid)) 1 tab PO DAILY naloxone 4 mg/actuation (Narcan) 1 spray intranasal Q2M omega-3 acid ethyl esters 1 cap PO BID 90 days ondansetron 8 mg PO Q8H PRN oxycodone 5 mg PO BID PRN 10 days polyethylene glycol 3350 (Gavilax) 17 grams PO DAILY potassium chloride ER 30 mEq PO DAILY pravastatin 20 mg PO BEDTIME prazosin 1 mg PO DAILY rizatriptan 10 mg PO DAILY PRN romosozumab-aqqg (Evenity) 210 mg subcut Q28D sennosides (Senna Laxative) 17.2 mg (2 x 8.6 mg) PO BEDTIME sertraline 100 mg PO DAILY Shower Chair As directed spironolactone 25 mg PO DAILY tizanidine 4 mg PO BID PRN HPI Comments Details: 58-year-old female with an extensive medical history includes asthma, depression, bipolar disorder, hyperlipidemia, fibromyalgia, GERD, migraine, hyperthyroidism, thyroid cancer status post thyroidectomy, She has been referred for hypokalemia 2 years ago she had hypokalemia which was corrected. Recently she has had persistent hypokalemia. Potassium was in the low 2s. She was on chlorthalidone 25 mg a day. This was decreased to 12.5 mg and subsequently discontinued 3 weeks ago. The recent potassium was 4.4 millimoles per L on September 21. Serum chloride and bicarb levels were normal no alkalosis. Renal function has also been normal. She denies any polyuria or polydipsia. No history of any diarrhea. There is history of constipation. Currently she is on 8 tablets of potassium chloride. Of note she says not on diuretics at this time. However, daughter gave her some natural diuretics for edema She is on high dose of Amlodipine -10mg 12/25/23; c/o Cramps ;K was low ;KCL increased to 10 mg ;Not of diuretics ;Has leg edema - on Amlodipine 5 mg QD ;Urine K was high CTA - NO MAGDALENA 01/15/24 ;Feels better ;Edema resolved ;NO more cramps 02/15/2024. She was supposed to be on 8 tablets of potassium chloride but she is still taking 10 tablets. 06/24/24 ;c/o Pain in back for 2 months- waiting for scan ; Pain radiating down left left- on and off 10/31/24 ;c/o dysuria ,Occasional back pain 12/26/24 Here for follow. c/o generalized body pain and leg edema Wants to see neurosurgeon c/o Leg edema No dyspnea PFSH Medical History Low vitamin B12 level Smoker Numbness Wheezing Chronic radicular pain of lower back Foot pain, bilateral Joint pain in both hands Breast pain Hypokalemia Breast pain, right Allergies Migraines Renal calculi Bipolar disorder Chronic abdominal pain Osteoporosis Hyperparathyroidism Multinodular thyroid Depression Fibromyalgia Thrombocytosis Leukocytosis GERD (gastroesophageal reflux disease) Thyroid cancer PONV (postoperative nausea and vomiting) Elevated cholesterol Difficulty swallowing Vitamin D deficiency Anxiety Pulmonary nodule Asthma HTN (hypertension) Surgical History H/O pyloroplasty (03/27/24) History of excision of mass Hx of thyroidectomy H/O esophagogastroduodenoscopy H/O colonoscopy History of bilateral oophorectomy Hx of cholecystectomy S/P excision of lipoma History of total abdominal hysterectomy Hx of appendectomy Family History Father Diabetes mellitus Skin cancer Prostate cancer Mother HTN (hypertension) High cholesterol Mental health disorder Maternal Grandfather Myocardial infarction Maternal Grandmother No problems noted. Paternal Grandfather No problems noted. Paternal Grandmother Breast cancer Sister Mental health disorder Social History Household Members: None Housing: Apartment Are you a primary caregiver services home to a significant other at home: No Do you presently have visiting nurse or other home services: No Alcohol intake: never Patient Tobacco Use Status: Current everyday Tobacco user Tobacco use type: Cigarette Cigarettes Per Day: 5 Years Smoked: 20 e-Cigarette/Vaping Use: Never Used Second Hand Smoke Exposure: No Advance Directives Date on File: 10/05/16 service: No Current occupational status: disabled Sexual orientation: Straight/Heterosexual Gender identity: Female Cognitive needs: No Hearing needs: No Vision needs: Yes Physical Exam Vital Signs: Last Vital Signs Pulse 103 H 12/26/24 13:16 BP 114/64 12/26/24 13:16 Pulse Ox 94 12/26/24 13:16 Oxygen Delivery Method Room Air 12/26/24 13:16 BMI result Body Mass Index 28.3 Const General: cooperative and no acute distress Orientation/consciousness: patient oriented x3 Resp Effort & Inspection: normal respiratory effort and able to speak in complete sentences Neuro General: patient oriented x3 Cognition (Neuro): normal cognition Psych Appearance: grossly normal Mental Status: mental status grossly normal Speech and movement: Normal speech and movement present Affect: normal affect Attitude: cooperative Results Reviewed Results Reviewed: November 2024 USG Right kidney: The right kidney measures 10.1 x 4.1 x 5.9 cm. Renal parenchymal echotexture and thickness are normal. There are no masses. There is no hydronephrosis or renal calculi. Left Kidney: The left kidney measures 11.0 x 6.3 x 4.6 cm. Renal parenchymal echotexture and thickness are normal. There is a 1.1 x 1.0 x 1.1 cm cyst at the lower pole. There is no hydronephrosis or renal calculi. Nephrology Results: Hgb 16.0 g/dl (12.0-16.0) 12/23/24 WBC 13.4 X10*3/uL (4.8-10.8) H 12/23/24 Plt Count 431 X10*3/uL (160-400) H 12/23/24 Sodium 139 mmol/L (135-145) 12/24/24 Potassium 3.9 mmol/L (3.3-5.1) 12/24/24 Chloride 105 mmol/L (96-108) 12/24/24 Carbon Dioxide 22 mmol/L (22-29) 12/24/24 BUN 10 mg/dL (9-16) 12/23/24 Creatinine 0.70 mg/dL (0.5-1.4) 12/23/24 Calcium 9.6 mg/dL (8.4-10.2) 12/23/24 Urine Protein Negative mg/dL (Neg-Trace) 12/05/24 Assessment & Plan Assessment & Plan (1) HTN (hypertension): Code(s): I10 - Essential (primary) hypertension Category: Medical (2) Hypokalemia: Code(s): E87.6 - Hypokalemia Category: Medical (3) Dysuria: Code(s): R30.0 - Dysuria Category: Medical Plan Middle-aged woman with multiple medical problems comes in with significant hypokalemia. Initially she was on chlorthalidone with potassium supplementation. However after lowering chlorthalidone potassium was still significantly low. Currently she is on 100 mEq of potassium supplementation. No alkalosis. She does have hypertension. In the past she had plasma renin and aldosterone levels which were all in the normal range. Serum Aldosterone was 19 and plasma renin was elevated at 14 Causes include diuretic use, No evidence of renin producing tumor, or renal artery stenosis , based on CT SCAN AVOID chlorthalidone Keep Spironolactone 25 mg DAILY and watch K KCL (10 meq ) 6 tabs a day ( she has increased it form 3 to 6 a day) Leg edema May be due to Amlodipine Should stay on lwo salt diet Orders: Orders Basic Metabolic Panel 4 Months E87.6 - Hypokalemia, I10 - Essential (primary) hypertension Coding Level of Care Code Est Pt Level 4 (64389) Diagnoses HTN (hypertension) I10 Hypokalemia E87.6 Dysuria R30.0
--- OUTSIDE RECORDS SUMMARY | 2024-12-26 15:41 | XMS_ITS | Clinical Summary ---
Author Organization [facility] Address [address] [place] [address] Care Team Providers Care Enterprise Sales Person Name Role Phone Cr Madera MD Primary Care Provider [phone] Surgical History Surgery Date Site/Laterality Comments VENTRAL HERNIA REPAIR PROCEDURE: HISTORICAL VTRL WALL HERNIA RE APPENDECTOMY PROCEDURE: HISTORICAL APPENDECTOMY; COMMENT: w/ incisional hernia repair HYSTERECTOMY PROCEDURE: HISTORICAL TOTAL HYSTERECTOMY WITH BSO HERNIA REPAIR PROCEDURE: SD REPAIR FIRST ABDOMINAL WALL HERNIA Medical History [...] age to complete this topic Care Teams Enterprise Sales Person Relationship Specialty Start Date End Date Cr Madera MD [address] [place] [address] PCP - General Internal Medicine 07/05/17
--- OUTSIDE RECORDS SUMMARY | 2024-12-26 15:41 | XMS_ITS | Clinical Summary ---
Author Organization [facility] Address [address] [facility] 7t [place] [address] Care Team Providers Care Beater Boss Name Role Phone Unavailable Primary Care Provider [...] Office Visit [facility] [address] [place] [address] Debby Escamilla, OD Dry eyes, bilateral (Primary [...] Description 01/28/2025 1:00 PM EDT Office Visit [facility] [address] [place] [address] Pily Perkins, OD [address] [place] [address] Health Maintenance Due Date Last Done Comments [...] patient's age to complete this topic Insurance [facility] [address] [address] [place] [id number]
--- OUTSIDE RECORDS SUMMARY | 2024-12-26 15:41 | XMS_ITS | Clinical Summary ---
Author Organization [facility], Address [address] [place] [address] [place] [address] Phone Care Team Providers Care Pot Reliner Name Role Phone Raymundo Mcdonald NP Primary Care Provider [phone] Allergies Active Allergy Reactions Criticality Noted Date [...] 017 Influenza Vaccine (Season Ended) 2025 Insurance [facility] Medicaid Care Teams Pot Reliner Relationship Specialty Start Date End Date Raymundo Mcdonald NP [address] [place] [address] PCP - General Nurse Practitioner 10/10/23
--- OUTSIDE RECORDS SUMMARY | 2024-12-26 15:41 | XMS_ITS | Encounter Summary ---
Author Organization [facility], Address [address] [place] [address] Phone Care Team Providers Care Gear Repairer Name Role Phone Raymundo Mcdonald NP Primary Care Provider [phone] Encounter Details Date Type Department Care Team (Late st Contact Info) Description 10/10/2023 Documentation Only [facility], [address] [place] [address] [place], [place] [address] [place] [address] Social History Tobacco Use Types [...] on filedocumented in this encounter Care Teams Gear Repairer Relationship Specialty Start Date End Date Raymundo Mcdonald NP [address] [place] [address] PCP - General Nurse Practitioner 10/10/23 documented as of this encounter
== END 2024-12-26 13:43 | disposition home or self-care (01) ==
LOC: HO.HKA 13:21
PROVIDERS: PCP Nurse Practitioner Family; Visit Provider Internal Medicine Hypertension Specialist
DX: I10 Essential (primary) hypertension (principal); E87.6 Hypokalemia; R30.0 Dysuria
CPT/HCPCS: 99214

== ENCOUNTER → 2024-12-26 13:14 | Outpatient (BNVA) | payer OTHER, SELFPAY | PROVIDERS: PCP Nurse Practitioner Family; Visit Provider Internal Medicine Hypertension Specialist | DX: I10 Essential (primary) hypertension (principal); E78.6 Lipoprotein deficiency; R30.0 Dysuria | CPT/HCPCS: 99212 ==

== ENCOUNTER 2024-12-30 12:24 | Outpatient (AMB) | payer OTHER, SELFPAY ==
--- NOTE | 2024-12-30 12:43 | A.SPINEOV_ITS ---
Vital Signs 12/30/24 12:59 Height 5 ft 3 in Weight 158 lb BMI 28.0 Intake Visit Reasons: LBP Intake Note: Ms. Bulmaro Martinez is here today c/o Low back pain. Follow Up Manager Required: Yes Follow Up Manager Services: Follow Up Manager Present Follow Up Manager Name: Anabel Butler, LM Allergies Sulfa (Sulfonamide Antibiotics) [SULFA (SULFONAMIDE ANTIBIOTICS)] Allergy (Intermediate, Verified 12/30/24 13:00) HIVES Latex, Natural Rubber Allergy (Mild, Verified 12/30/24 13:00) Rash egg Allergy (Verified 12/30/24 13:00) Abdominal Pain strawberry Allergy (Verified 12/30/24 13:00) Abdominal Pain aspirin [ASPIRIN] Adverse Reaction (Intermediate, Verified 12/30/24 13:00) ABD PAIN morphine [MORPHINE] Adverse Reaction (Intermediate, Verified 12/30/24 13:00) Abdominal Pain almond Allergy (Severe, Uncoded 12/26/24 13:20) Stomack pain Lactose intollerance Allergy (Severe, Uncoded 12/26/24 13:20) Stomach pain, nausceau Physical Exam Vital Signs: BMI result Body Mass Index 28.0 Assessment & Plan Assessment & Plan (1) Lumbar disc herniation with radiculopathy: Code(s): M51.16 - Intervertebral disc disorders with radiculopathy, lumbar region Category: Medical Plan Dear Asya, Thank you for referring Kita to our office today. She is a pleasant, anxious 59-year-old female who comes in today with a chief complaint of low back pain and shooting pain down her right lower extremity. When asked which is the worst of her pain she states her low back is by far the worst. She states that this has been ongoing for ?many years.? She has a generally poor historian and had difficult time recounting when her pain began and where her pain exactly is. First she stated that her pain is well localized in the low back, then she stated it also goes into her left hip, then she reported that it travels down her right leg, then subsequently stated that her pain travels all the way up the spine toward the shoulders. When describing her right leg pain she runs her hand over the posterior buttocks down the lateral aspect of her right leg terminating near the posterior calf. She does report some very nonspecific numbness/tingling that is intermittent in her lower extremities. She denies any bowel or bladder incontinence. She reports that she has attempted ndfo-ari-dehnqut medications in an effort to help treat this pain. She also has utilized prescription medications such as diclofenac and gabapentin effort to help mitigate her pain. She was attempted previous left-sided SI joint injections to address her low back pain, but stated they were not successful. Lastly, she reports that she suffers from fibromyalgia and diffuse body pains, and states that she has a difficult time discerning her fibromyalgia from her back and leg pain. PMH: Fibromyalgia, irritable bowel syndrome, generalized anxiety disorder, vitamin-D deficiency, Migraines, osteoporosis diagnosed via DEXA scan in her chart from 2020, GERD, seasonal allergies, asthma, HTN. Social hx: The patient does not smoke, reports no substance use. Medications: See [employer] list. Allergies: 8 allergies are listed in her chart. Physical exam: The patient has essentially what appears to be diffuse 4/5 strength in her upper and lower extremities which is pain limited per the patient report. She ambulates very slowly and seems to shuffle when ambulating. She has no resting tremor. No significant sensational deficits on exam. Reflexes are 2+ intact diffusely. She is able to rise from a seated position with the assistance of her cane and gets up onto the examination table slowly with assistance from the table. (-) Rock's, (-) clonus, (-) bilateral straight leg raise. Imaging review: MRI of the lumbar spine completed here at [facility] shows a disc herniation at L5-S1 causing some contact with the right L5 nerve (image 41/53 on axial T1). There is no previous MRI to compare this to. Impression: Kita is a pleasant 59-year-old female who comes in today with a chief complaint of diffuse pains throughout the body including low back pain and shooting pains down her right lower extremity. She has thus far been unable to obtain relief from previous attempted conservative measures. She does not have any notable red flag symptoms from her disc herniation. It is difficult to ascertain exactly when this disc herniation happened, whether it was 2 years ago or sooner as her self-reported right leg pain has remained the same for the last couple of years. This does seem to conflict with the notes was able to review from our colleagues in pain management, but is likely due to the fact that the patient has a difficult time providing history. Regardless, I believe the patient would be a good candidate for a right-sided L5 transforaminal epidural steroid injection. If this provides her with good pain relief for any meaningful period of time, we may consider microdiskectomy in the future. For the time being I suggested that she continue to pursue conservative treatments with our colleagues in pain management. If her symptoms significantly worsen (right leg pain becomes more pronounced over her other diffuse body pains, significant right-sided leg numbness or motor deficit occurs) we can see her back in clinic for subsequent evaluation. Thank you for allowing us to care for your patient. The total time spent with this visit with this patient was 45 minutes reviewing history, physical exam, MRI imaging review, and implementation of treatment plan or further diagnostic testing Fran Dia MD,PhD [facility] Coding Level of Care Code New Pt Level 4 (85575) Diagnoses Lumbar disc herniation with radiculopathy M51.16
[2024-12-30 12:59] VITALS: BMI 28.0
--- OUTSIDE RECORDS SUMMARY | 2024-12-30 14:50 | XMS_ITS | Clinical Summary ---
Author Organization [facility], Address [address] [place] [address] [place] [address] Phone Care Team Providers Care Ear Muff Assembler Name Role Phone Raymundo Mcdonald NP Primary Care Provider [phone] Allergies Active Allergy Reactions Criticality Noted Date [...] Influenza Vaccine (Season Ended) 2025 Insurance [facility] Medicaid Care Teams Ear Muff Assembler Relationship Specialty Start Date End Date Raymundo Mcdonald NP [address] [place] [address] PCP - General Nurse Practitioner 10/10/23
--- OUTSIDE RECORDS SUMMARY | 2024-12-30 14:50 | XMS_ITS | Clinical Summary ---
Author Organization [facility] Address [address] [place] [address] Care Team Providers Care Process Area Supervisor Name Role Phone Cr Madera MD Primary Care Provider [phone] Surgical History Surgery Date Site/Laterality Comments VENTRAL HERNIA REPAIR PROCEDURE: HISTORICAL VTRL WALL HERNIA RE APPENDECTOMY PROCEDURE: HISTORICAL APPENDECTOMY; COMMENT: w/ incisional hernia repair HYSTERECTOMY PROCEDURE: HISTORICAL TOTAL HYSTERECTOMY WITH BSO HERNIA REPAIR PROCEDURE: NM REPAIR FIRST ABDOMINAL WALL HERNIA Medical History [...] age to complete this topic Care Teams Process Area Supervisor Relationship Specialty Start Date End Date Cr Madera MD [address] [place] [address] PCP - General Internal Medicine 07/05/17
--- OUTSIDE RECORDS SUMMARY | 2024-12-30 14:50 | XMS_ITS | Encounter Summary ---
Author Organization [facility], Address [address] [place] [address] Phone Care Team Providers Care Psychological Operations Specialist Name Role Phone Raymundo Mcdonald NP Primary Care Provider [phone] Encounter Details Date Type Department Care Team (Late st Contact Info) Description 10/10/2023 Documentation Only [facility], [address] [place] [address] [place], [place] [address] [place] [address] Social History Tobacco Use Types [...] on filedocumented in this encounter Care Teams Psychological Operations Specialist Relationship Specialty Start Date End Date Raymundo Mcdonald NP [address] [place] [address] PCP - General Nurse Practitioner 10/10/23 documented as of this encounter
--- OUTSIDE RECORDS SUMMARY | 2024-12-30 14:50 | XMS_ITS | Clinical Summary ---
Author Organization [employer] Address [address] [facility] 7t [place] [address] Care Team Providers Care Textbook Associate Name Role Phone Unavailable Primary Care [...] Description 10/30/2024 3:45 PM EST Office Visit [facility] [address] [place] [address] Debby Escamilla, OD Dry eyes, bilateral (Primary [...] Description 01/28/2025 1:00 PM EDT Office Visit [facility] [address] [place] [address] Pily Perkins, OD [address] [place] [address] Health Maintenance Due Date Last Done Comments [...] patient's age to complete this topic Insurance [facility] [address] [place] [id number]
== END 2024-12-30 13:40 | disposition home or self-care (01) ==
LOC: HO.HNS 12:25
PROVIDERS: PCP Nurse Practitioner Family; Referring Provider Nurse Practitioner Family; Visit Provider Physician Assistant
DX: M51.16 Intervertebral disc disorders with radiculopathy, lumbar region (principal)
CPT/HCPCS: 99204

== ENCOUNTER → 2024-12-30 12:24 | Outpatient (BNVA) | payer OTHER, SELFPAY | PROVIDERS: PCP Nurse Practitioner Family; Referring Provider Nurse Practitioner Family; Visit Provider Physician Assistant | DX: M51.16 Intervertebral disc disorders with radiculopathy, lumbar region (principal) | CPT/HCPCS: 99202 ==

== ENCOUNTER 2024-12-31 14:39 | Outpatient (AMB) | payer OTHER, SELFPAY ==
--- NOTE | 2024-12-31 15:20 | AM.OFFVISNUR ---
Intake Visit Reasons: Evenity #10 Allergies Sulfa (Sulfonamide Antibiotics) [SULFA (SULFONAMIDE ANTIBIOTICS)] Allergy (Intermediate, Verified 12/30/24 13:00) HIVES Latex, Natural Rubber Allergy (Mild, Verified 12/30/24 13:00) Rash egg Allergy (Verified 12/30/24 13:00) Abdominal Pain strawberry Allergy (Verified 12/30/24 13:00) Abdominal Pain aspirin [ASPIRIN] Adverse Reaction (Intermediate, Verified 12/30/24 13:00) ABD PAIN morphine [MORPHINE] Adverse Reaction (Intermediate, Verified 12/30/24 13:00) Abdominal Pain almond Allergy (Severe, Uncoded 12/26/24 13:20) [place]omack pain Lactose intollerance Allergy (Severe, Uncoded 12/26/24 13:20) Stomach pain, [place] Office Meds romosozumab-aqqg 210 mg/2.34 mL(105 mg/1.17 mL x2)subcutaneous syringe Performing Provider: Deuce Valdes MD Performing Location: [facility] Endocrinology Administered by: Rachel Smith RN on 12/31/24 15:20 Dose Route Admin Location Dispensed Lot Number Expiration Date NDC Metal Cans Supervisor 210 mg subcut bilateral upper arms 2.34 mL [id number] 12/02/26 96295-595-14 AMGEN Comments: Visit interpreted by Rachel ROBISON. Pt denied any adverse effects from previous injection. Pt tolerated injections well with no further questions. Assessment & Plan Assessment & Plan Orders: Orders AMB Romosozumab Injection Patient Supplied Today M81.0 - Age-related osteoporosis without current pathological fracture Medications: New romosozumab-aqqg 210 mg (2.34 mL) subcut ONCE 2.34 mL 0RF M81.0 - Age-related osteoporosis without current pathological fracture Coding
--- OUTSIDE RECORDS SUMMARY | 2024-12-31 17:35 | XMS_ITS | Encounter Summary ---
Author Organization [facility], Address [address] [place] [address] Phone Care Team Providers Care Contract Mail Carrier Name Role Phone Raymundo Mcdonald NP Primary Care Provider [phone] Encounter Details Date Type Department Care Team (Late st Contact Info) Description 10/10/2023 Documentation Only [facility], [address] [place] [address] [place], [place] [address] [place] [address] Social History Tobacco Use Types [...] on filedocumented in this encounter Care Teams Contract Mail Carrier Relationship Specialty Start Date End Date Raymundo Mcdonald NP [address] [place] [address] PCP - General Nurse Practitioner 10/10/23 documented as of this encounter
--- OUTSIDE RECORDS SUMMARY | 2024-12-31 17:36 | XMS_ITS | Clinical Summary ---
Author Organization [employer] [facility] Address [address] [place] [address] Care Team Providers Care Roll Line Operator Name Role Phone Cr Madera MD Primary Care Provider [phone] Surgical History Surgery Date Site/Laterality Comments VENTRAL HERNIA REPAIR PROCEDURE: HISTORICAL VTRL WALL HERNIA RE APPENDECTOMY PROCEDURE: HISTORICAL APPENDECTOMY; COMMENT: w/ incisional hernia repair HYSTERECTOMY PROCEDURE: HISTORICAL TOTAL HYSTERECTOMY WITH BSO HERNIA REPAIR PROCEDURE: MD REPAIR FIRST ABDOMINAL WALL HERNIA Medical History [...] age to complete this topic Care Teams Roll Line Operator Relationship Specialty Start Date End Date Cr Madera MD [address] [place] [address] PCP - General Internal Medicine 07/05/17
== END 2024-12-31 15:18 | disposition home or self-care (01) ==
LOC: HO.ENCR 14:40
PROVIDERS: PCP Nurse Practitioner Family; Visit Provider Internal Medicine Endocrinology, Diabetes & Metabolism
DX: M81.0 Age-related osteoporosis without current pathological fracture (principal)

== ENCOUNTER → 2024-12-31 14:39 | Outpatient (BNVA) | payer OTHER, SELFPAY | PROVIDERS: PCP Nurse Practitioner Family; Visit Provider Internal Medicine Endocrinology, Diabetes & Metabolism | DX: M81.0 Age-related osteoporosis without current pathological fracture (principal) | CPT/HCPCS: 96372; J3111 ==

== ENCOUNTER 2025-01-17 14:37 | Outpatient (AMB) | payer OTHER, SELFPAY ==
--- OUTSIDE RECORDS SUMMARY | 2025-01-17 14:39 | XMS_ITS | Clinical Summary ---
Author Organization [employer] [facility] Address [address] [place] [address] Care Team Providers Care Venetian Blind Maker Name Role Phone Cr Madera MD Primary Care Provider [phone] Surgical History Surgery Date Site/Laterality Comments VENTRAL HERNIA REPAIR PROCEDURE: HISTORICAL VTRL WALL HERNIA RE APPENDECTOMY PROCEDURE: HISTORICAL APPENDECTOMY; COMMENT: w/ incisional hernia repair HYSTERECTOMY PROCEDURE: HISTORICAL TOTAL HYSTERECTOMY WITH BSO HERNIA REPAIR PROCEDURE: ID REPAIR FIRST ABDOMINAL WALL HERNIA Medical History [...] age to complete this topic Care Teams Venetian Blind Maker Relationship Specialty Start Date End Date Cr Madera MD [address] [place] [address] PCP - General Internal Medicine 07/05/17
--- OUTSIDE RECORDS SUMMARY | 2025-01-17 14:39 | XMS_ITS | Encounter Summary ---
Author Organization [facility], Address [address] [place] [address] Phone Care Team Providers Care Edge Banding Machine Offbearer Name Role Phone Raymundo Mcdonald NP Primary Care Provider [phone] Encounter Details Date Type Department Care Team (Late st Contact Info) Description 10/10/2023 Documentation Only [facility], [address] [place] [address] [place], [place] [address] [place] [address] Social History Tobacco Use Types [...] on filedocumented in this encounter Care Teams Edge Banding Machine Offbearer Relationship Specialty Start Date End Date Raymundo Mcdonald NP [address] [place] [address] PCP - General Nurse Practitioner 10/10/23 documented as of this encounter
--- OUTSIDE RECORDS SUMMARY | 2025-01-17 14:39 | XMS_ITS | Clinical Summary ---
Author Organization [facility], Address [address] [place] [address] [place] [address] Phone Care Team Providers Care Foam Cutting Supervisor Name Role Phone Raymundo Mcdonald NP Primary Care Provider [phone] Allergies Active Allergy Reactions Criticality Noted Date [...] 017 Influenza Vaccine (Season Ended) 2025 Insurance [facility] Medicaid Care Teams Foam Cutting Supervisor Relationship Specialty Start Date End Date Raymundo Mcdonald NP [address] [place] [address] PCP - General Nurse Practitioner 10/10/23
--- OUTSIDE RECORDS SUMMARY | 2025-01-17 14:39 | XMS_ITS | Clinical Summary ---
Author Organization [employer] Address [address] [facility] 7t [place] [address] Care Team Providers Care Outside Sales Manager Name Role Phone Unavailable Primary Care Provider [...] Description 10/30/2024 3:45 PM EST Office Visit [facility] [address] [place] [id number] Tarka, Debby, OD Dry eyes, bilateral (Primary Dx) 10/30/2024 [...] Description 01/28/2025 1:00 PM EDT Office Visit [facility] [address] [place] [address] Pily Perkins, OD [address] [place] [address] Health Maintenance Due Date Last Done Comments [...] patient's age to complete this topic Insurance [address] [place] [id number] [place] [address] [place] [phone] [place] [phone] [place] [phone]
--- NOTE | 2025-01-17 14:59 | MHC.OFFVIS ---
Vital Signs 01/17/25 15:05 Height 5 ft 3 in Weight 155 lb 4 oz BMI 27.5 BP 129/67 Blood Pressure Location Rt brachial Position Sitting Pulse 73 Pulse Source Pulse Oximeter Pulse Oximetry (%) 98 Oxygen Delivery Method Room Air Intake Visit Reasons: FU after Neuro surgeon appt Intake Note: Pain today 06/13 Bank Guard Required: Yes Bank Guard Language: Client Services Associate Name: Shannon Accompanied by: Self / Same As Patient Allergies Sulfa (Sulfonamide Antibiotics) [SULFA (SULFONAMIDE ANTIBIOTICS)] Allergy (Intermediate, Verified 01/17/25 15:05) HIVES Latex, Natural Rubber Allergy (Mild, Verified 01/17/25 15:05) Rash egg Allergy (Verified 01/17/25 15:05) Abdominal Pain strawberry Allergy (Verified 01/17/25 15:05) Abdominal Pain aspirin [ASPIRIN] Adverse Reaction (Intermediate, Verified 01/17/25 15:05) ABD PAIN morphine [MORPHINE] Adverse Reaction (Intermediate, Verified 01/17/25 15:05) Abdominal Pain almond Allergy (Severe, Uncoded 12/26/24 13:20) Stomack pain Lactose intollerance Allergy (Severe, Uncoded 12/26/24 13:20) Stomach pain, nausceau HPI Comments Details: The patient is a 59-year-old female presenting with chronic low back pain management and Neurosurgical consultation follow-up. She has a history of chronic back pain emanating from a previously diagnosed disc herniation. Her back pain was reported to radiate primarily to the left leg despite MRI findings showing a right-sided disc herniation. Patient reports that pain has predominantly radiating to the right lower leg laterally with shooting, numbness and tingling sensations. She continues to report SI joint tenderness in both sides, worse on the left. She underwent SI joint injections bilaterally in November with no significant relief. Subsequent neurosurgical evaluation recommended a right sided L5 transforaminal epidural steroid injection. Due to significant osteoporosis in her lumbar spine, we will proceed with selective nerve block at L5 without steroid. Patient reports right leg numbness but significant motor deficits. The patient's medical history is further complicated by issues of kidney cysts and chronic elevated LFTs, requiring careful consideration of her medication regimen; hence, tizanidine was discontinued. Her fibromyalgia has been managed with gabapentin, though recent discontinuation of tizanidine has worsened her pain control. Patient is frustrated as tizanidine provided her significant relief of her widespread symptoms, including back pain. - Pain onset: Chronic with recent exacerbation - Quality/Character: Severe, increasing intensity, throbbing with periods of sharp pain - Location/Radiation: Lower back with primary radiation to the right leg - Aggravating Factors: Physical activity, prolonged sitting or standing - Alleviating Factors: Previously, gabapentin and tizanidine were effective - Impact: Significant interference with daily activities and quality of life - Affect: Patient reports pain impacts mood, causing frustration and distress due to limited relief. - Analgesia: Discontinued tizanidine; currently on gabapentin; pain remains at severe levels, previous tizanidine provided better control. - Adverse Effects: Concerns regarding hepatotoxicity of tizanidine with elevated LFTs - Activities of Daily Living: Limited due to severe pain; difficulty with mobility and routine tasks - Aberrant Drug Related Behaviors: No evidence of misuse; compliant with recommendations PRIOR: Patient presenting with a follow-up for ongoing sacroiliac joint pain and no pain relief from recent diagnostic SI joint injections. The pain has been persistent, and MRI imaging studies show right foraminal broad-based disc herniation L5-S1 abutting. Historically, pain radiates from the lower back to the posterior right leg, worsening with walking, prolonged sitting, bending, twisting or lifting and daily functions and travels. Despite attempts at pain management post-injection, the patient reports exacerbation, noticing a numbing sensation in the right leg. Chronicity of the pain with added osteoporotic considerations precludes certain interventions such as epidural steroid injections, guiding current management towards surgical consultation. Notably, osteoarthritis also contributes as an underlying pain source. Additionally, a left renal cyst was incidentally noted during previous screenings, which is monitored by Nephrology but asymptomatic at present per patient. Past Procedures: 12/05/24: Bilateral Diagnostic SI Joint Injections-0% pain relief PRIOR: The patient is a 59-year-old female presenting with numbness in her legs. She reports an acute episode, occurring around or Monday last week, resulted in the urgent care visit due to significant concern with inability to stand and weakness with significant low back pain. She was confined to her bathroom for approximately 2 hours due to her inability to stand during the incident. This presentation is different from her typical chronic back pain, which she notes is normally localized on the left side in the L5-S1 distribution and sometimes involving the right side as well as sacroiliac joint pain. She recently missed her bilateral diagnostic SIJ injections and is rescheduled for 12/05/24. Patient denies previous lumbar spine MRI and denies any recent MRI order at Urgent clinic with development of acute leg numbness and weakness, gait impairment to assess potential spinal or neurological involvement. - Onset and Timing: Chronic back pain and fibromyalgia; new numbness in legs occurring recently - Quality and Character: Numbness preventing prolonged standing, throbbing, shooting, radiating - Location: Left L5-S1 distribution, sometimes involving right side - Areas of Radiation: Back to front of left leg with numbness dorsal aspect of left foot - Exacerbating Factors: Movements, bending, lifting, walking, prolonged standing - Relieving Factors: None, minimal relief with NSAIDs, gabapentin, heat, rest - Interference: Prevents standing or walking, impacts mobility and ADLs - Affect: Patient expressed fear and worry due to new numbness affecting her daily life - Analgesia: Current medications include gabapentin, clonazepam, diclofenac sodium, and amitriptyline - Adverse Effects: History of liver cyst which can influence tizanidine usage - Activities of Daily Living: Numbness severely impacts ability to stand and walk - Aberrant Drug-Related Behaviors: None reported PRIOR: Patient presents today for follow up after physical therapy. Patient reports she was able to complete 4 weeks of PT without significant improvement in her functioning, mobility, or sleep. She continues to endorse neck, mid and lower back pain with radiation into her buttocks and lateral hips. She ambulates with cane. Recent cervical and lumbar spine imaging are noted below. Patient is interested to proceed with diagnostic sacroiliac joint injections as initial steps. Denies any recent cough, cold, infection, fever or any significant changes in medical history since last office visit. PRIOR: Patient is a 59 years old Micronesian speaking female with history of fibromyalgia, polyarthralgia, chronic pain syndrome, osteoporosis ([facility], repeat bone scan 2024), thyroid cancer s/p thyroidectomy, Bipolar disorder, depression, presents today for initial evaluation of low back pain and widespread body pain due to fibromyalgia. state historical society director it was incorporated during today's visit. Denies any recent trauma, injury or falls. History of fall in June 2023 due to left knee pain related to instability. Patient was previously seen at [facility] and completed formal course of physical therapy and underwent multiple injections 2-3 years ago with mixed results. She was referred to our office by her PCP for lumbar radiculopathy and was ordered lumbar spine MRI which was denied by her insurance. Back pain is axial and radiates to upper and lower extremities per patient. She also reports chronic right upper back pain with shooting pain down into her lower back. Pain is present with activity and rest and flares up with any movement, stress or weather changes. Pain is constant and is rated at 10/10. Patient reports tramadol and gabapentin allow her to be less symptomatic and more functional. Reports previous courses of PT for shoulder and knee pain were ineffective but willing to undergo PT for back and neck pain. Denies any fever or chills, abdominal or groin pain, weakness, footdrop, bladder or bowel dysfunction or saddle anesthesia. Patient follows with Endocrinology and Rheumatology services. Location: Lower back, right upper back, widespread body pain Duration: Chronic pain for couple years Characteristics of symptom or complaint: Aching, numbness, tingling, spasming, shooting, tiring, radiating, heavy, Aggravating or associated factors: Prolonged walking or sitting, cold weather, movements, ADLs, stress Relieving factors: Tramadol, gabapentin, heat therapy, activity modifications, rest Treatment: PT, injections at [facility] Medical History Low vitamin B12 level Smoker Numbness Wheezing Chronic radicular pain of lower back Foot pain, bilateral Joint pain in both hands Breast pain Hypokalemia Breast pain, right Allergies Migraines Renal calculi Bipolar disorder Chronic abdominal pain Osteoporosis Hyperparathyroidism Multinodular thyroid Depression Fibromyalgia Thrombocytosis Leukocytosis GERD (gastroesophageal reflux disease) Thyroid cancer PONV (postoperative nausea and vomiting) Elevated cholesterol Difficulty swallowing Vitamin D deficiency Anxiety Pulmonary nodule Asthma HTN (hypertension) Surgical History H/O pyloroplasty (03/27/24) History of excision of mass Hx of thyroidectomy H/O esophagogastroduodenoscopy H/O colonoscopy History of bilateral oophorectomy Hx of cholecystectomy S/P excision of lipoma History of total abdominal hysterectomy Hx of appendectomy Family History Father Diabetes mellitus Skin cancer Prostate cancer Mother HTN (hypertension) High cholesterol Mental health disorder Maternal Grandfather Myocardial infarction Maternal Grandmother No problems noted. Paternal Grandfather No problems noted. Paternal Grandmother Breast cancer Sister Mental health disorder Social History Household Members: None Housing: Apartment Are you a primary behavioral health care manager to a significant other at home: No Do you presently have visiting nurse or other home services: No Alcohol intake: never Patient Tobacco Use Status: Current everyday Tobacco user Tobacco use type: Cigarette Cigarettes Per Day: 5 Years Smoked: 20 e-Cigarette/Vaping Use: Never Used Second Hand Smoke Exposure: No Advance Directives Date on File: 10/05/16 service: No Current occupational status: disabled Sexual orientation: Straight/Heterosexual Gender identity: Female Cognitive needs: No Hearing needs: No Vision needs: Yes Review of Systems Const All systems reviewed & are unremarkable except as noted in HPI and below Physical Exam Vital Signs: Last Vital Signs Pulse 73 01/17/25 15:05 BP 129/67 01/17/25 15:05 Pulse Ox 98 01/17/25 15:05 Oxygen Delivery Method Room Air 01/17/25 15:05 BMI result Body Mass Index 27.5 General: Appears afebrile. Alert and oriented. Mood and affect appropriate. Follows and participates in conversation appropriately. Respiratory effort is unlabored. No cough. Able to transition from sit to stand unassisted. Ambulates with cane. Ambulates with bilaterally normal heel strike and toe off, reports pain increase on the left with heel/toe standing. General: Yes no CVA tenderness Back/Spine/Pelvis Other: Limited lumbar ROM due to pain. Lumbar extension, bending forward and flexion reproduces moderate-severe pain. Multiple widespread TTPs 16/16 bilaterally, including upper and lower extremities.?Demonstrates 5/5 strength of quadriceps bilaterally as well as flexion/dorsiflexion of bilateral feet against resistance. 2+ pedal pulses bilaterally. Straight leg rise with dorsiflexion positive on the right. +1 patellar and achilles reflexes bilaterally. Facet loading test positive bilaterally. Gabby sign, Herrera?s, Gaenslen, Pelvic compression and Stinchfield tests are positive bilaterally. No groin pain with I/E hip rotations. Valsalva maneuver is positive. Back: no CVA tenderness Cervical Spine: cervical ROM normal, cervical muscular tenderness, pain with cervical ROM, No Cervical spine tenderness and No step off deformity Thoracic/Lumbar Spine: thoracic and lumbar spine normal to inspection, No Thoracic/lumbar spine scar(s), Lasegue's sign positive on the right and localized, pain with thoraco-lumbar ROM, paraspinal muscle tenderness, thoraco-lumbar ROM limited, No thoracic spinal tenderness and lumbar spinal tenderness (L4-S1) Pelvis: buttock tenderness (right>left) bilaterally Sacroiliac joints: bilaterally tender to palpation Extrem General: Yes capillary refill normal, Yes no clubbing, cyanosis or edema and Yes no calf tenderness Results Reviewed Results Reviewed: XR LUMBAR SPINE 08/05/25 CLINICAL INFORMATION: Radiculopathy, lumbar region M54.16. COMPARISON: None available. TECHNIQUE: 5 views of lumbar spine. FINDINGS: Normal vertebral body alignment. The lumbar lordosis is maintained. No acute fracture or subluxation. No loss of vertebral body height or intervertebral disc height. Tiny anterior endplate osteophytes at T11 through L1. No concerning lytic or blastic osseous lesion. Right upper quadrant surgical clips. Surgical coils overlying the anterior pelvic wall. No abnormal soft tissue calcification. IMPRESSION: Minimal degenerative disc disease at T11 through L1. XR CERVICAL SPINE 08/05/24 CLINICAL INFORMATION: Age-related osteoporosis without current pathological fracture M81.0. COMPARISON: XR Cervical spine without flexion/extension 08/16/2022 TECHNIQUE: 6 views of the cervical spine, inclusive of flexion and extension views, were obtained. FINDINGS: The vertebral alignment is normal. No intrinsic bony abnormality. No fracture or subluxation. Degenerative changes with disc space narrowing and osteophyte formation is seen at C5/6 and C6/7. Posterior facet joints appear well-maintained. No significant neural foraminal osseous encroachment. Surgical clips are seen in the paratracheal soft tissues The surrounding prevertebral soft tissues are otherwise unremarkable. IMPRESSION: Degenerative disc disease at C5/6 and C6/7. XR DEXA appendicular skeleton 08/12/24 IMPRESSION: 1. DIAGNOSIS: Osteoporosis based on the lowest T-score value of -3.5 in the lumbar spine applying World Health Organization criteria. MR LUMBAR SPINE WITHOUT CONTRAST 12/04/24 FINDINGS: Last rib-bearing vertebra labeled T12. No bone marrow STIR signal abnormality. Bone marrow inhomogeneity throughout the axial skeleton and bony pelvis. Disc desiccation, L5-S1 and to a lesser extent L4-5. There is normal alignment. The conus medullaris ends at pedicle of L1 with normal signal. T12-L1: No disc herniation. No neuroforamina stenosis. L1-2: No disc herniation. No neuroforamina stenosis. L2-3: Broad-based disc bulging. Facet joint hypertrophy. No compression upon neural elements. L3-4: Broad-based disc bulging. Facet joint hypertrophy. No compression upon neural elements. L4-5: Broad-based disc bulging. Facet joint and ligamentum flavum hypertrophy. Reduced AP diameter of the thecal sac and the neural foramina. No compression upon neural elements. L5-S1: There is a right foraminal broad-based disc herniation abutting the right S1 nerve root. Facet joint hypertrophy. Right neuroforamina narrowing. No prevertebral compartment hematoma, mass or fluid collection. Hyperintense T2/cystic lesion in the left kidney. IMPRESSION: Right foraminal broad-based disc herniation L5-S1 abutting the right S1 nerve root on its lateral recess and likely encroaching right L5. Spondylosis at L4-5 without compression upon neural elements. Calcium metabolic disorder/osteopenia versus osteoporosis. Assessment & Plan Assessment & Plan (1) Lumbosacral spondylosis: Code(s): M47.817 - Spondylosis without myelopathy or radiculopathy, lumbosacral region Category: Medical (2) Lumbar radiculopathy: Code(s): M54.16 - Radiculopathy, lumbar region Category: Medical (3) Lumbar degenerative disc disease: Code(s): M51.369 - Other intervertebral disc degeneration, lumbar region without mention of lumbar back pain or lower extremity pain Category: Medical (4) Lumbar disc herniation with radiculopathy: Code(s): M51.16 - Intervertebral disc disorders with radiculopathy, lumbar region Category: Medical (5) Fibromyalgia: Code(s): M79.7 - Fibromyalgia Category: Medical Plan Schedule right-sided L5 transforaminal epidural injection without steroid (severe osteoporosis) with local and fluoroscopy. Expectations, risks and benefits were reviewed. Patient is aware she will be contacted to schedule this procedure. Patient was advised to follow up with GI for further evaluation of elevated LFTs, with h/o liver cyst and Nephrology with known renal cysts to determine the safety of reinitiating tizanidine. Current pain management will continue with gabapentin, ensuring careful monitoring of her liver function. Should the injections not achieve desired pain relief, neurosurgical reevaluation or the potential application of a spinal cord stimulator will be considered. The patient's response to treatment will be closely monitored, and discussions with a neurosurgeon will continue as necessary. Patient was informed and verbally consented to the use of an ambient scribe for clinic note documentation during this visit. Coding Level of Care Code Est Pt Level 4 (86385) Complex EM visit Add On G2211 Diagnoses Lumbosacral spondylosis M47.817 Lumbar radiculopathy M54.16 Lumbar degenerative disc disease M51.369 Lumbar disc herniation with radiculopathy M51.16 Fibromyalgia M79.7
[2025-01-17 15:05] VITALS: BP 129/67; PULSE 73; O2SAT 98; BMI 27.5
== END 2025-01-17 15:25 | disposition home or self-care (01) ==
LOC: HO.PMC 14:38
PROVIDERS: PCP Nurse Practitioner Family; Visit Provider Nurse Practitioner Family
DX: M47.817 Spondylosis without myelopathy or radiculopathy, lumbosacral region (principal); M51.369 Other intervertebral disc degeneration, lumbar region without mention of lumbar back pain or lower extremity pain; M51.16 Intervertebral disc disorders with radiculopathy, lumbar region; M79.7 Fibromyalgia
CPT/HCPCS: 99214; G2211

== ENCOUNTER → 2025-01-17 14:37 | Outpatient (BNVA) | payer OTHER, SELFPAY | PROVIDERS: PCP Nurse Practitioner Family; Visit Provider Nurse Practitioner Family | DX: M47.817 Spondylosis without myelopathy or radiculopathy, lumbosacral region (principal); M51.369 Other intervertebral disc degeneration, lumbar region without mention of lumbar back pain or lower extremity pain; M51.16 Intervertebral disc disorders with radiculopathy, lumbar region; M79.7 Fibromyalgia | CPT/HCPCS: 99212 ==

== ENCOUNTER 2025-02-24 13:34 | Outpatient (AMB) | payer OTHER, SELFPAY ==
--- NOTE | 2025-02-24 14:18 | AM.OFFVISNUR ---
Intake Visit Reasons: [facility] #11 Allergies Sulfa (Sulfonamide Antibiotics) (SULFA (SULFONAMIDE ANTIBIOTICS)) Allergy (Intermediate, Verified 01/17/25 15:05) HIVES Latex, Natural Rubber Allergy (Mild, Verified 01/17/25 15:05) Rash egg Allergy (Verified 01/17/25 15:05) Abdominal Pain strawberry Allergy (Verified 01/17/25 15:05) Abdominal Pain aspirin (ASPIRIN) Adverse Reaction (Intermediate, Verified 01/17/25 15:05) ABD PAIN morphine (MORPHINE) Adverse Reaction (Intermediate, Verified 01/17/25 15:05) Abdominal Pain almond Allergy (Severe, Uncoded 12/26/24 13:20) Stomack pain Lactose intollerance Allergy (Severe, Uncoded 12/26/24 13:20) Stomach pain, nausceau Office Meds romosozumab-aqqg 210 mg/2.34 mL(105 mg/1.17 mL x2)subcutaneous syringe Performing Provider: Deuce Valdes MD Performing Location: [facility] Endocrinology Administered by: Rachel Smith RN on 02/24/25 14:18 Dose Route Admin Location Dispensed Lot Number Expiration Date [place] [employer] 210 mg subcut bilateral upper arms 2.34 mL [id number] 06/03/27 17101-378-77 [facility] Total Dispensed Waste 2.34 mL 0 % Comments: Pt came with daughter who interpreted visit and declined glass technician/installer services. Pt tolerated injection well, no adverse reactions reported from previous injection. Pt scheduled in 4 weeks for f/u appt with Dr. Valdes as well receive last [facility] injection. No further questions at this time. Assessment & Plan Assessment & Plan Orders: Orders AMB Romosozumab Injection Patient Supplied Today M81.0 - Age-related osteoporosis without current pathological fracture Coding
--- OUTSIDE RECORDS SUMMARY | 2025-02-24 15:01 | XMS_ITS | Encounter Summary ---
Author Organization [facility], Address [address] [place] [address] Phone Care Team Providers Care Component Engineer Name Role Phone Raymundo Mcdonald NP Primary Care Provider [phone] Encounter Details Date Type Department Care Team (Late st Contact Info) Description 10/10/2023 Documentation Only [facility], [address] [place] [address] [place] [address] [place] [address] Social History Tobacco Use Types [...] on filedocumented in this encounter Care Teams Component Engineer Relationship Specialty Start Date End Date Raymundo Mcdonald NP [address] [place] [id number] PCP - General Nurse Practitioner 10/10/23 documented as of this encounter
== END 2025-02-24 14:15 | disposition home or self-care (01) ==
LOC: HO.ENCR 13:35
PROVIDERS: PCP Nurse Practitioner Family; Visit Provider Internal Medicine Endocrinology, Diabetes & Metabolism
DX: M81.0 Age-related osteoporosis without current pathological fracture (principal)

== ENCOUNTER → 2025-02-24 13:34 | Outpatient (BNVA) | payer OTHER, SELFPAY | PROVIDERS: PCP Nurse Practitioner Family; Visit Provider Internal Medicine Endocrinology, Diabetes & Metabolism | DX: M81.0 Age-related osteoporosis without current pathological fracture (principal); Z79.620 Long term (current) use of immunosuppressive biologic | CPT/HCPCS: 96372; J3111 ==

== ENCOUNTER 2025-03-04 13:07 | Outpatient (AMB) | payer OTHER, SELFPAY ==
--- NOTE | 2025-03-04 13:15 | MHC.OFFVIS ---
Vital Signs 03/04/25 13:19 Height 5 ft 3 in Weight 158 lb BMI 28.0 BP 120/70 Blood Pressure Location Rt brachial Position Sitting Pulse 89 Pulse Source Pulse Oximeter Pulse Oximetry (%) 97 Oxygen Delivery Method Room Air Intake Visit Reasons: Follow Up 6mo Intake Note: Patient presents 6 month follow up for migraines/Involuntary movements Trench Digger Helper Required: No Trench Digger Helper Name: Daughter Interpreted Accompanied by: Daughter Allergies Sulfa (Sulfonamide Antibiotics) (SULFA (SULFONAMIDE ANTIBIOTICS)) Allergy (Intermediate, Verified 03/04/25 13:20) HIVES Latex, Natural Rubber Allergy (Mild, Verified 03/04/25 13:20) Rash egg Allergy (Verified 03/04/25 13:20) Abdominal Pain strawberry Allergy (Verified 03/04/25 13:20) Abdominal Pain aspirin (ASPIRIN) Adverse Reaction (Intermediate, Verified 03/04/25 13:20) ABD PAIN morphine (MORPHINE) Adverse Reaction (Intermediate, Verified 03/04/25 13:20) Abdominal Pain almond Allergy (Severe, Uncoded 12/26/24 13:20) Stomack pain Lactose intollerance Allergy (Severe, Uncoded 12/26/24 13:20) Stomach pain, nausceau HPI Comments Details: 59-yr-old female presents for f/u televisit for migraine. Patient visit conducted via telephone as patient was unable to access her utilize [facility] technology today. August 2024 lab work was unremarkable other than mildly elevated WBC 12 (WBC has been running between 10 and 13 since 2023), elevated vitamin B6 at 28, follow-up vitamin B6 was 68 in September 2024. She states she has low level headaches most days but no severe migraines, unless her Emgality is delivered late. Then, she will have daily severe migraine until she resumes her Emgality. Using as needed medication approx 6-7 days per month. The Ubrelvy helps better than the Rizatriptan- uses one or the other depending on severity. She states her tremor is stable, better since she stopped Vistaril. 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 She states her balance is poor, has difficulty standing for too long. She has had some falls. She does use a cane. [facility] Medical History Low vitamin B12 level Smoker Numbness Wheezing Chronic radicular pain of lower back Foot pain, bilateral Joint pain in both hands Breast pain Hypokalemia Breast pain, right Allergies Migraines Renal calculi Bipolar disorder Chronic abdominal pain Osteoporosis Hyperparathyroidism Multinodular thyroid Depression Fibromyalgia Thrombocytosis Leukocytosis GERD (gastroesophageal reflux disease) Thyroid cancer PONV (postoperative nausea and vomiting) Elevated cholesterol Difficulty swallowing Vitamin D deficiency Anxiety Pulmonary nodule Asthma HTN (hypertension) Surgical History H/O pyloroplasty (03/27/24) History of excision of mass Hx of thyroidectomy H/O esophagogastroduodenoscopy H/O colonoscopy History of bilateral oophorectomy Hx of cholecystectomy S/P excision of lipoma History of total abdominal hysterectomy Hx of appendectomy Family History Father Diabetes mellitus Skin cancer Prostate cancer Mother HTN (hypertension) High cholesterol Mental health disorder Maternal Grandfather Myocardial infarction Maternal Grandmother No problems noted. Paternal Grandfather No problems noted. Paternal Grandmother Breast cancer Sister Mental health disorder Social History Household Members: None Housing: Apartment Are you a primary out of school hours care worker to a significant other at home: No Do you presently have visiting nurse or other home services: No Alcohol intake: never Patient Tobacco Use Status: Current everyday Tobacco user Tobacco use type: Cigarette Cigarettes Per Day: 5 Years Smoked: 20 e-Cigarette/Vaping Use: Never Used Second Hand Smoke Exposure: No Advance Directives Date on File: 10/05/16 service: No Current occupational status: disabled Sexual orientation: Straight/Heterosexual Gender identity: Female Cognitive needs: No Hearing needs: No Vision needs: Yes Physical Exam Vital Signs: Last Vital Signs Pulse 89 03/04/25 13:19 BP 120/70 03/04/25 13:19 Pulse Ox 97 03/04/25 13:19 Oxygen Delivery Method Room Air 03/04/25 13:19 BMI result Body Mass Index 28.0 Const General: cooperative and no acute distress Orientation/consciousness: patient oriented x3 Resp Effort & Inspection: normal respiratory effort and able to speak in complete sentences Neuro General: patient oriented x3 Cognition (Neuro): normal cognition Psych Mental Status: mental status grossly normal Affect: normal affect Attitude: cooperative Telehealth Telehealth Telehealth Platform: [facility] Location of provider rendering services: practice address Location of patient: address on file Patient Identification confirmed using: Name, : Yes Telehealth method: voice only Patient verbally consented to treatment: Yes Patient verbally consented to billing insurance company: Yes Patient informed of any privacy concerns related to visit: Yes Minutes spent on Phone/Video with Pt.: 16 Assessment & Plan Assessment & Plan (1) Migraines: Code(s): G43.909 - Migraine, unspecified, not intractable, without status migrainosus Category: Medical Qualifiers: Migraine type: migraine (< 15 days per month) without aura Status migrainosus presence: without status migrainosus Intractability: not intractable Qualified Code(s): G43.009 - Migraine without aura, not intractable, without status migrainosus (2) Tremor: Code(s): R25.1 - Tremor, unspecified Category: Medical (3) Involuntary movements: Code(s): R25.9 - Unspecified abnormal involuntary movements Category: Medical Plan For worsening sleep in setting of itching without rash and muscle cramps: Will recheck labs for common etiologies of paresthesias Trial cyproheptadine 4 mg q.h.s. p.r.n.- this may help headaches as well. Future considerations: Patient may benefit from seeing dermatology. For tremor- C-spine XR- Mild degenerative changes. Brain MRI w/wo- stable mild nonspecific white matter disease and prominent perivascular spaces in supratentorial compartment. No findings to explain pt's movement s/s. Tips currently given to break freezing episodes. Future considerations: Consider trial of CD-LD, DaTscan, PT. ? For headache prevention: Continue riboflavin 200 mg b.i.d.. Continue magnesium 400-500 mg q.h.s., may hold for GI side effects. Continue Amitriptyline 50mg qhs- for sleep as well- monitor mood. Continue Emgality 120mg sc q month as patient continues to experience for a 30% reduction in monthly migraine days with the use- discussed strategies to optimize timely delivery of Emgality from the pharmacy. Previous migraine tx trials: Topiramate 25-50mg qhs- not effective after > 12 wks. ? For acute migraine treatment: Continue sumatriptan prn Continue Rizatripatn 5-10 mg for now- unfortunately not always effective. Continue Ubrogepant (Ubrelvy) 100mg tab, as this is effective, 1/2 - 1 tab (50-100mg) at onset of headache, may repeat in 2 hours. Max of 2 tabs (200mg) per 24 hours. May adjunct with Rizatriptan, or OTC Tylenol 650mg q 4 hours, Ibuprofen 600mg q 6 hours, or Naproxen 440mg q 12 hrs prn. May take Ubrelvy w/ Rizatriptan. May try taking Ubrelvy the week before next Emgality injection due. Previous migraine tx trials: Sumatriptan- ineffective. Rizatriptan not fully effective. ? Will follow-up upon review of above and patient to follow-up in clinic in 6 months or sooner prn. Medications: New ubrogepant (Ubrelvy) take at onset of migraine, may repeat in 2hrs (may take w/ rizatriptan) 50 - 100 mg (0.5 - 1 x 100 mg) PO ONCE PRN 16 tabs 3RF migraine headache 30 days Changed From rizatriptan 10 mg PO DAILY PRN migraine To rizatriptan 10 mg PO Q2H PRN 12 tabs 6RF migraine 30 days MDD 20 mg Refilled galcanezumab-gnlm (Emgality Pen) 120 mg subcut Q30D 1 mL 6RF G43.909 - Migraine, unspecified, not intractable, without status migrainosus Coding Level of Care Code Tele Est Pt Level 4 (68852) Diagnoses Migraine without aura and without status migrainosus, not intractable G43.009 Migraine type: migraine (< 15 days per month) without aura Status migrainosus presence: without status migrainosus Intractability: not intractable Tremor R25.1 Involuntary movements R25.9
[2025-03-04 13:19] VITALS: BP 120/70; PULSE 89; O2SAT 97; BMI 28.0
--- OUTSIDE RECORDS SUMMARY | 2025-03-04 14:10 | XMS_ITS | Encounter Summary ---
Author Organization [facility], Address [address] [place] [address] Phone Care Team Providers Care Bacteriologist Industrial Name Role Phone Raymundo Mcdonald NP Primary Care Provider [phone] Encounter Details Date Type Department Care Team (Late st Contact Info) Description 10/10/2023 Documentation Only [facility], [address] [place] [address] [place], [place] [address] [place] [address] Social History Tobacco Use Types [...] on filedocumented in this encounter Care Teams Bacteriologist Industrial Relationship Specialty Start Date End Date Raymundo Mcdonald NP [address] [place] [id number] PCP - General Nurse Practitioner 10/10/23 documented as of this encounter
--- OUTSIDE RECORDS SUMMARY | 2025-03-04 14:11 | XMS_ITS | Clinical Summary ---
Author Organization [employer] Address [address] [facility] [address] [place] [address] Care Team Providers Care Financial Management Name Role Phone Unavailable Primary Care Provider [...] Upcoming Encounters Date Type Department Care Team ([facility] st Contact Info) Description 06/09/2025 1:30 PM EDT Office Visit [facility] OPT[facility] [address] [place] [address] Pily Perkins, OD [address] [place] [address] Health Maintenance Due Date Last Done Comments CT Colonography 1967 Colonoscopy 1967 Colorectal Cancer Screening 1967 Depression Screening 1967 FIT DNA/Cologuard 1967 FIT 1967 FOBT 1967 HIV Screening 1967 Lipid Panel 1967 SDOH Screening 1967 Sigmoidoscopy 1967 Disability Screening 1967 Alcohol/Substance Use Screening 1979 Hepatitis C Screening 1985 DTaP/Tdap/Td Vaccines (1 - Tdap) 1986 Hepatitis B Vaccines (1 of 3 - 19+ 3-dose series) 1986 Pap Smear 1988 Cervical Cancer Screening 1997 HPV/Cotest 1997 Mammogram 2007 COVID-19 Vaccine (3 - season) 2024 07/05/2021, 01/09/2021 Zoster Vaccines [...] patient's age to complete this topic [place] [address] [address] [place] [address] ACO
--- OUTSIDE RECORDS SUMMARY | 2025-03-04 14:11 | XMS_ITS | Clinical Summary ---
Author Organization [employer] [facility] Address [address] [place] [address] Care Team Providers Care Dry Cleaning Machine Operator Helper Name Role Phone Cr Madera MD Primary Care Provider Surgical History Surgery Date Site/Laterality Comments VENTRAL HERNIA REPAIR PROCEDURE: HISTORICAL VTRL WALL HERNIA RE APPENDECTOMY PROCEDURE: HISTORICAL APPENDECTOMY; COMMENT: w/ incisional hernia repair HYSTERECTOMY PROCEDURE: HISTORICAL TOTAL HYSTERECTOMY WITH BSO HERNIA REPAIR PROCEDURE: NH REPAIR FIRST ABDOMINAL WALL HERNIA Medical History [...] (2023-2 5 season) 2024 Influenza Vaccine (#1) 2025 HIB Vaccines Aged Out No longer [...] age to complete this topic Care Teams Dry Cleaning Machine Operator Helper Relationship Specialty Start Date End Date Cr Madera MD [address] [place] [address] PCP - General Internal Medicine 07/05/17
== END 2025-03-04 14:12 | disposition home or self-care (01) ==
LOC: HO.HSMS 13:08
PROVIDERS: PCP Nurse Practitioner Family; Visit Provider Nurse Practitioner Family
DX: G43.009 Migraine without aura, not intractable, without status migrainosus (principal); R25.1 Tremor, unspecified; R25.9 Unspecified abnormal involuntary movements
CPT/HCPCS: 99214

== ENCOUNTER 2025-03-24 09:56 | Outpatient (AMB) | payer OTHER, SELFPAY ==
--- NOTE | 2025-03-24 10:17 | AM.OFFVISNUR ---
Intake Visit Reasons: Evenity #12 Allergies Sulfa (Sulfonamide Antibiotics) (SULFA (SULFONAMIDE ANTIBIOTICS)) Allergy (Intermediate, Verified 03/04/25 13:20) HIVES Latex, Natural Rubber Allergy (Mild, Verified 03/04/25 13:20) Rash egg Allergy (Verified 03/04/25 13:20) Abdominal Pain strawberry Allergy (Verified 03/04/25 13:20) Abdominal Pain aspirin (ASPIRIN) Adverse Reaction (Intermediate, Verified 03/04/25 13:20) ABD PAIN morphine (MORPHINE) Adverse Reaction (Intermediate, Verified 03/04/25 13:20) Abdominal Pain almond Allergy (Severe, Uncoded 12/26/24 13:20) Stomack pain Lactose intollerance Allergy (Severe, Uncoded 12/26/24 13:20) Stomach pain, nausceau Office Meds romosozumab-aqqg 210 mg/2.34 mL(105 mg/1.17 mL x2)subcutaneous syringe Performing Provider: Deuce Valdes MD Performing Location: [facility] Administered by: Debby Moreno RN on 03/24/25 10:17 Dose Route Admin Location Dispensed Lot Number Expiration Date ND High Lighter 210 mg subcut bilateral upper arms 2.34 mL [id number] 06/03/27 10728-660-41 [employer] Total Dispensed Waste 2.34 mL 0 % Comments: Patient accompanied by daughter for visit who interpreted. Patient declined wanting to us asl interpreter provided by hospital. Patient here for last injection, certification of completion given. Patient tolerated injection well. Advised will need to complete labs prior to f/u in x1 month with Dr. Valdes for prolia injection. Orders placed. Assessment & Plan Assessment & Plan Orders: Orders AMB Romosozumab Injection Patient Supplied Today M81.0 - Age-related osteoporosis without current pathological fracture Basic Metabolic Panel Today M81.0 - Age-related osteoporosis without current pathological fracture Calcium Today M81.0 - Age-related osteoporosis without current pathological fracture Coding
--- OUTSIDE RECORDS SUMMARY | 2025-03-24 10:41 | XMS_ITS | Clinical Summary ---
Author Organization [employer] [facility] Address [address] [place] [address] Phone Care Team Providers Care Jukebox Routeman Name Role Phone Raymundo Mcdonald NP Primary Care Provider + Social History Tobacco Use Types Packs/Day Years Used Date Smoking Tobacco: Never Assessed Education Answer Date Recorded Are you interested in more education? Not on raegan e 04/30/2024 Are you concerned about learning? Not on file 04/30/2024 No 04/30/2024 No 04/30/2024 Digital Access Answer Date Recorded No 04/30/2024 No 04/30/2024 Reliable internet access at home? Not on file 04/30/2024 Device with a working camera? Not on file Comments Unknown Sex and Gender Information Value Date Recorded Sex Assigned at Not on file Legal Sex Female 2:51 PM EST Gender Identity Not on file Sexual Orientation Not on file Plan of Treatment Health Maintenance Due Date Last Done Comments Adult Td,Tdap Booster 1967 LIPID PANEL 1967 DEPRESSION SCREENING 1979 SMOKING Hx and SMOKELESS TOB ACCO SCREENING 1980 HEPATITIS C SCREENING 1985 HIV ONE-TIME SCREENING (18-6 5 YEARS) 1985 PAP SMEAR 1988 MAMMOGRAM 2007 COLOGUARD 2012 COLONOSCOPY 2012 COLORECTAL CANCER SCREENING 2012 FIT TEST 2012 FOBT 2012 SIGMOIDOSCOPY 2012 VIRTUAL COLONOSCOPY 2012 PNEUMOCOCCAL VACCINES (50+ y ears) (1 of 1 - PCV) 2017 ZOSTER VACCINES (1 of 2) 2017 COVID-19 VACCINE ( - 2023-2 5 season) 2024 HEPATITIS A VACCINES Aged Out No long er eligible based on patient's age to complete this topic HIB VACCINES Aged Out No longer eligi ble based on patient's age to complete this topic MENINGOCOCCAL VACCINES (ACWY) Aged Out No longer eligible based on patient's age to complete this topic MENINGOCOCCAL VACCINES (B) Aged Out N o longer eligible based on patient's age to complete this topic Medical Devices Not on file Insurance [place] [place] [address] [address] [place] [address] ACO [facility] [facility] [facility] [id number] Care Teams Jukebox Routeman Relationship Specialty Start Date End Date Raymundo Mcdonald NP [address] [facility] [place] [address] [email or web address] PCP - General Nurse Practitioner 08/03/23 Additional Source Comments The information contained in this document represents components of the legal health record. It is not the complete legal health record.[facility]
--- OUTSIDE RECORDS SUMMARY | 2025-03-24 10:41 | XMS_ITS | Clinical Summary ---
Author Organization [employer] Address [address] [facility] [address] [place] [address] Care Team Providers Care Senior Information Security Architect Name Role Phone Unavailable Primary Care Provider [...] Upcoming Encounters Date Type Department Care Team ([facility] st Contact Info) Description 06/09/2025 1:30 PM EDT Office Visit [facility] OPTOMETRY [address] [place] [address] Pily Perkins, OD [address] [place] [address] Health Maintenance Due Date Last Done Comments [...] Zoster Vaccines (2 of 2) 09/25/2024 07/31/2024 Influenza Vaccine (#1) 2025 , 09/21/2023, 05/27/2021, Additional history exists Tobacco Screening 10/30/2025 10/30/2024 RSV Patients and Patients Aged 60 years or older (1 - 1-dose 75+ series) 2042 Pneumococcal Vaccine: 50+ Years Completed 07/31/2024, 11/08/2021 [...]
--- OUTSIDE RECORDS SUMMARY | 2025-03-24 10:41 | XMS_ITS | Encounter Summary ---
Author Organization [facility], Address [address] [place] [address] Phone Care Team Providers Care Physician Scientist Name Role Phone Raymundo Mcdonald NP Primary Care Provider [phone] Encounter Details Date Type Department Care Team (Late st Contact Info) Description 10/10/2023 Documentation Only [facility], [address] [place] [address] [place], [place] [address] [place] [address] Social History Tobacco Use Types [...] on filedocumented in this encounter Care Teams Physician Scientist Relationship Specialty Start Date End Date Raymundo Mcdonald NP [address] [place] [id number] PCP - General Nurse Practitioner 10/10/23 documented as of this encounter
--- OUTSIDE RECORDS SUMMARY | 2025-03-24 10:41 | XMS_ITS | Clinical Summary ---
Author Organization [employer] [facility] Address [address] [place] [address] Care Team Providers Care Roulette Dealer Name Role Phone Cr Madera MD Primary [...] ars (1 of 2 - PCV) 1986 Cervical Cancer Screening: P ap Smear 1988 Zoster Vaccines (1 of 2) 2017 Cholesterol Screening (Lipid Panel) 08/07/2022 Colorectal Cancer Screening: Colonoscopy 08/07/2022 HIV Screening 08/07/2022 Hepatitis C Screening 08/07/2022 Social Influencers of Health Screening 08/07/2022 COVID-19 Vaccine ( - 2023-2 5 season) 2024 Depression Screening 09/04/2024 Influenza Vaccine (#1) 2025 HIB Vaccines Aged [...] age to complete this topic Care Teams Roulette Dealer Relationship Specialty Start Date End Date Cr Madera MD [address] [place] [id number] PCP - General Internal Medicine 07/05/17
== END 2025-03-24 10:16 | disposition home or self-care (01) ==
LOC: HO.ENCR 09:57
PROVIDERS: PCP Nurse Practitioner Family; Visit Provider Internal Medicine Endocrinology, Diabetes & Metabolism
DX: M81.0 Age-related osteoporosis without current pathological fracture (principal)

== ENCOUNTER → 2025-03-24 09:56 | Outpatient (BNVA) | payer OTHER, SELFPAY | PROVIDERS: PCP Nurse Practitioner Family; Visit Provider Internal Medicine Endocrinology, Diabetes & Metabolism | DX: M81.0 Age-related osteoporosis without current pathological fracture (principal) | CPT/HCPCS: 96372; J3111 ==

== ENCOUNTER 2025-04-17 10:25 | Outpatient (REF) | payer OTHER, SELFPAY ==
[2025-04-17 12:15] LABS: Anion Gap 12 (12-20); Blood Urea Nitrogen 7 mg/dL (9-16); Calcium 9.1 mg/dL (8.4-10.2); Carbon Dioxide 23 mmol/L (22-29); Chloride 110 mmol/L (96-108); Estimated Glomerular Filt Rate > 60; Potassium 4.1 mmol/L (3.3-5.1); Sodium 141 mmol/L (135-145)
== END 2025-04-17 10:26 | disposition home or self-care (01) ==
LOC: HO.LAB 10:25
PROVIDERS: Absent Provider Internal Medicine Hypertension Specialist; PCP Nurse Practitioner Family; Visit Provider Internal Medicine Endocrinology, Diabetes & Metabolism
DX: M47.817 Spondylosis without myelopathy or radiculopathy, lumbosacral region (principal); M51.16 Intervertebral disc disorders with radiculopathy, lumbar region; G89.29 Other chronic pain; M79.7 Fibromyalgia; I10 Essential (primary) hypertension; E87.6 Hypokalemia
CPT/HCPCS: 36415; 80048; 99212

== ENCOUNTER 2025-04-17 10:25 | Outpatient (AMB) | payer OTHER, SELFPAY ==
--- NOTE | 2025-04-17 10:33 | MHC.OFFVIS ---
Vital Signs 04/17/25 10:37 Height 5 ft 3 in Weight 144 lb 4 oz BMI 25.5 BP 114/63 Blood Pressure Location Rt brachial Position Sitting Pulse 91 Pulse Source Pulse Oximeter Pulse Oximetry (%) 97 Oxygen Delivery Method Room Air Intake Visit Reasons: Follow Up Pt. Request Intake Note: Pain today 06/13 Furniture Maker Required: Yes Furniture Maker Language: Harvesting Contractor Services: Furniture Maker Present Furniture Maker Name: Family Accompanied by: Family/Other Allergies Sulfa (Sulfonamide Antibiotics) (SULFA (SULFONAMIDE ANTIBIOTICS)) Allergy (Intermediate, Verified 04/17/25 10:38) HIVES Latex, Natural Rubber Allergy (Mild, Verified 04/17/25 10:38) Rash egg Allergy (Verified 04/17/25 10:38) Abdominal Pain strawberry Allergy (Verified 04/17/25 10:38) Abdominal Pain aspirin (ASPIRIN) Adverse Reaction (Intermediate, Verified 04/17/25 10:38) ABD PAIN morphine (MORPHINE) Adverse Reaction (Intermediate, Verified 04/17/25 10:38) Abdominal Pain almond Allergy (Severe, Uncoded 12/26/24 13:20) Stomack pain Lactose intollerance Allergy (Severe, Uncoded 12/26/24 13:20) Stomach pain, nausceau HPI Comments Details: The patient is a 59-year-old female presenting with ongoing back pain and related symptoms. The back pain has been persistent, with radiation to the right leg, affecting posterior and lateral aspects of the leg and causing numbness with tingling. The pain is associated with right foraminal disc herniation at L5-S1, compressing the S1 and L5 nerve roots, and is complicated by osteoporosis, which precludes the use of steroidal injections. The patient has a history of completing only four sessions of physical therapy by December 2024, which worsened her back pain, leading to discontinuation. She has tried various medications, including tizanidine, which was discontinued due to liver concerns, and continues to take amitriptyline and gabapentin. The patient is allergic to aspirin and avoids ibuprofen due to its class relation. Patient reports pain affects her daily activities, functioning, mobility and sleep. The patient experiences significant anxiety and depression, for which she receives monthly counseling and also help her to cope with chronic pain. She has been educated about her pain through our office and Neurosurgery, discussing imaging reviews, spine visual models and educational pamphlets, and understands the reasons for her pain. Plan is to proceed with Right Diagnostic L5 SNRB per Neurosurgery evaluation. Denies any recent cough, cold, infection, fever or any other significant changes in medical history since last office visit. PRIOR: The patient is a 59-year-old female presenting with chronic low back pain management and Neurosurgical consultation follow-up. She has a history of chronic back pain emanating from a previously diagnosed disc herniation. Her back pain was reported to radiate primarily to the left leg despite MRI findings showing a right-sided disc herniation. Patient reports that pain has predominantly radiating to the right lower leg laterally with shooting, numbness and tingling sensations. She continues to report SI joint tenderness in both sides, worse on the left. She underwent SI joint injections bilaterally in November with no significant relief. Subsequent neurosurgical evaluation recommended a right sided L5 transforaminal epidural steroid injection. Due to significant osteoporosis in her lumbar spine, we will proceed with selective nerve block at L5 without steroid. Patient reports right leg numbness but significant motor deficits. The patient's medical history is further complicated by issues of kidney cysts and chronic elevated LFTs, requiring careful consideration of her medication regimen; hence, tizanidine was discontinued. Her fibromyalgia has been managed with gabapentin, though recent discontinuation of tizanidine has worsened her pain control. Patient is frustrated as tizanidine provided her significant relief of her widespread symptoms, including back pain. - Pain onset: Chronic with recent exacerbation - Quality/Character: Severe, increasing intensity, throbbing with periods of sharp pain - Location/Radiation: Lower back with primary radiation to the right leg - Aggravating Factors: Physical activity, prolonged sitting or standing - Alleviating Factors: Previously, gabapentin and tizanidine were effective - Impact: Significant interference with daily activities and quality of life - Affect: Patient reports pain impacts mood, causing frustration and distress due to limited relief. - Analgesia: Discontinued tizanidine; currently on gabapentin; pain remains at severe levels, previous tizanidine provided better control. - Adverse Effects: Concerns regarding hepatotoxicity of tizanidine with elevated LFTs - Activities of Daily Living: Limited due to severe pain; difficulty with mobility and routine tasks - Aberrant Drug Related Behaviors: No evidence of misuse; compliant with recommendations PRIOR: Patient presenting with a follow-up for ongoing sacroiliac joint pain and no pain relief from recent diagnostic SI joint injections. The pain has been persistent, and MRI imaging studies show right foraminal broad-based disc herniation L5-S1 abutting. Historically, pain radiates from the lower back to the posterior right leg, worsening with walking, prolonged sitting, bending, twisting or lifting and daily functions and travels. Despite attempts at pain management post-injection, the patient reports exacerbation, noticing a numbing sensation in the right leg. Chronicity of the pain with added osteoporotic considerations precludes certain interventions such as epidural steroid injections, guiding current management towards surgical consultation. Notably, osteoarthritis also contributes as an underlying pain source. Additionally, a left renal cyst was incidentally noted during previous screenings, which is monitored by Nephrology but asymptomatic at present per patient. Past Procedures: 12/05/24: Bilateral Diagnostic SI Joint Injections-0% pain relief PRIOR: The patient is a 59-year-old female presenting with numbness in her legs. She reports an acute episode, occurring around or Monday last week, resulted in the urgent care visit due to significant concern with inability to stand and weakness with significant low back pain. She was confined to her bathroom for approximately 2 hours due to her inability to stand during the incident. This presentation is different from her typical chronic back pain, which she notes is normally localized on the left side in the L5-S1 distribution and sometimes involving the right side as well as sacroiliac joint pain. She recently missed her bilateral diagnostic SIJ injections and is rescheduled for 12/05/24. Patient denies previous lumbar spine MRI and denies any recent MRI order at Urgent clinic with development of acute leg numbness and weakness, gait impairment to assess potential spinal or neurological involvement. - Onset and Timing: Chronic back pain and fibromyalgia; new numbness in legs occurring recently - Quality and Character: Numbness preventing prolonged standing, throbbing, shooting, radiating - Location: Left L5-S1 distribution, sometimes involving right side - Areas of Radiation: Back to front of left leg with numbness dorsal aspect of left foot - Exacerbating Factors: Movements, bending, lifting, walking, prolonged standing - Relieving Factors: None, minimal relief with NSAIDs, gabapentin, heat, rest - Interference: Prevents standing or walking, impacts mobility and ADLs - Affect: Patient expressed fear and worry due to new numbness affecting her daily life - Analgesia: Current medications include gabapentin, clonazepam, diclofenac sodium, and amitriptyline - Adverse Effects: History of liver cyst which can influence tizanidine usage - Activities of Daily Living: Numbness severely impacts ability to stand and walk - Aberrant Drug-Related Behaviors: None reported PRIOR: Patient presents today for follow up after physical therapy. Patient reports she was able to complete 4 weeks of PT without significant improvement in her functioning, mobility, or sleep. She continues to endorse neck, mid and lower back pain with radiation into her buttocks and lateral hips. She ambulates with cane. Recent cervical and lumbar spine imaging are noted below. Patient is interested to proceed with diagnostic sacroiliac joint injections as initial steps. Denies any recent cough, cold, infection, fever or any significant changes in medical history since last office visit. PRIOR: Patient is a 59 years old [place] speaking female with history of fibromyalgia, polyarthralgia, chronic pain syndrome, osteoporosis ([facility], repeat bone scan 2024), thyroid cancer s/p thyroidectomy, Bipolar disorder, depression, presents today for initial evaluation of low back pain and widespread body pain due to fibromyalgia. seismograph shooter it was incorporated during today's visit. Denies any recent trauma, injury or falls. History of fall in June 2023 due to left knee pain related to instability. Patient was previously seen at [facility] and completed formal course of physical therapy and underwent multiple injections 2-3 years ago with mixed results. She was referred to our office by her PCP for lumbar radiculopathy and was ordered lumbar spine MRI which was denied by her insurance. Back pain is axial and radiates to upper and lower extremities per patient. She also reports chronic right upper back pain with shooting pain down into her lower back. Pain is present with activity and rest and flares up with any movement, stress or weather changes. Pain is constant and is rated at 10/10. Patient reports tramadol and gabapentin allow her to be less symptomatic and more functional. Reports previous courses of PT for shoulder and knee pain were ineffective but willing to undergo PT for back and neck pain. Denies any fever or chills, abdominal or groin pain, weakness, footdrop, bladder or bowel dysfunction or saddle anesthesia. Patient follows with Endocrinology and Rheumatology services. Location: Lower back, right upper back, widespread body pain Duration: Chronic pain for couple years Characteristics of symptom or complaint: Aching, numbness, tingling, spasming, shooting, tiring, radiating, heavy, Aggravating or associated factors: Prolonged walking or sitting, cold weather, movements, ADLs, stress Relieving factors: Tramadol, gabapentin, heat therapy, activity modifications, rest Treatment: PT, injections at [facility] Medical History Low vitamin B12 level Smoker Numbness Wheezing Chronic radicular pain of lower back Foot pain, bilateral Joint pain in both hands Breast pain Hypokalemia Breast pain, right Allergies Migraines Renal calculi Bipolar disorder Chronic abdominal pain Osteoporosis Hyperparathyroidism Multinodular thyroid Depression Fibromyalgia Thrombocytosis Leukocytosis GERD (gastroesophageal reflux disease) Thyroid cancer PONV (postoperative nausea and vomiting) Elevated cholesterol Difficulty swallowing Vitamin D deficiency Anxiety Pulmonary nodule Asthma HTN (hypertension) Surgical History H/O pyloroplasty (03/27/24) History of excision of mass Hx of thyroidectomy H/O esophagogastroduodenoscopy H/O colonoscopy History of bilateral oophorectomy Hx of cholecystectomy S/P excision of lipoma History of total abdominal hysterectomy Hx of appendectomy Family History Father Diabetes mellitus Skin cancer Prostate cancer Mother HTN (hypertension) High cholesterol Mental health disorder Maternal Grandfather Myocardial infarction Maternal Grandmother No problems noted. Paternal Grandfather No problems noted. Paternal Grandmother Breast cancer Sister Mental health disorder Social History Household Members: None Housing: Apartment Are you a primary assurance services manager health care to a significant other at home: No Do you presently have visiting nurse or other home services: No Alcohol intake: never Patient Tobacco Use Status: Current everyday Tobacco user Tobacco use type: Cigarette Cigarettes Per Day: 5 Years Smoked: 20 e-Cigarette/Vaping Use: Never Used Second Hand Smoke Exposure: No Advance Directives Date on File: 10/05/16 service: No Current occupational status: disabled Sexual orientation: Straight/Heterosexual Gender identity: Female Cognitive needs: No Hearing needs: No Vision needs: Yes Review of Systems Const All systems reviewed & are unremarkable except as noted in HPI and below Physical Exam Vital Signs: Last Vital Signs Pulse 91 04/17/25 10:37 BP 114/63 04/17/25 10:37 Pulse Ox 97 04/17/25 10:37 Oxygen Delivery Method Room Air 04/17/25 10:37 BMI result Body Mass Index 25.5 General: Appears afebrile. Alert and oriented. Mood and affect appropriate. Follows and participates in conversation appropriately. Respiratory effort is unlabored. No cough. Able to transition from sit to stand unassisted. Ambulates with cane. Ambulates with bilaterally normal heel strike and toe off, reports pain increase on the right with heel/toe standing. General: Yes no CVA tenderness Back/Spine/Pelvis Other: Limited lumbar ROM due to pain. Lumbar extension, bending forward and flexion reproduces moderate-severe pain. Multiple widespread TTPs 16/16 bilaterally, including upper and lower extremities.?Demonstrates 5/5 left and 4/5 right strength of quadriceps bilaterally as well as flexion/dorsiflexion of bilateral feet against resistance. 2+ pedal pulses bilaterally. Straight leg rise with dorsiflexion positive on the right. +1 right +2 left patellar and +1 achilles reflexes bilaterally. Facet loading test positive bilaterally. Gabby sign, Herrera?s, Gaenslen, Pelvic compression and Stinchfield tests are positive bilaterally. No groin pain with I/E hip rotations. Valsalva maneuver is positive. Back: no CVA tenderness Cervical Spine: cervical ROM normal, cervical muscular tenderness, pain with cervical ROM, No Cervical spine tenderness and No step off deformity Thoracic/Lumbar Spine: thoracic and lumbar spine normal to inspection, No Thoracic/lumbar spine scar(s), Lasegue's sign positive on the right and localized, pain with thoraco-lumbar ROM, paraspinal muscle tenderness, thoraco-lumbar ROM limited, No thoracic spinal tenderness and lumbar spinal tenderness (L4-S1) Pelvis: buttock tenderness (right>left) bilaterally Sacroiliac joints: bilaterally tender to palpation Extrem General: Yes capillary refill normal, Yes no clubbing, cyanosis or edema and Yes no calf tenderness Results Reviewed Results Reviewed: XR LUMBAR SPINE 08/05/25 CLINICAL INFORMATION: Radiculopathy, lumbar region M54.16. COMPARISON: None available. TECHNIQUE: 5 views of lumbar spine. FINDINGS: Normal vertebral body alignment. The lumbar lordosis is maintained. No acute fracture or subluxation. No loss of vertebral body height or intervertebral disc height. Tiny anterior endplate osteophytes at T11 through L1. No concerning lytic or blastic osseous lesion. Right upper quadrant surgical clips. Surgical coils overlying the anterior pelvic wall. No abnormal soft tissue calcification. IMPRESSION: Minimal degenerative disc disease at T11 through L1. XR CERVICAL SPINE 08/05/24 CLINICAL INFORMATION: Age-related osteoporosis without current pathological fracture M81.0. COMPARISON: XR Cervical spine without flexion/extension 08/16/2022 TECHNIQUE: 6 views of the cervical spine, inclusive of flexion and extension views, were obtained. FINDINGS: The vertebral alignment is normal. No intrinsic bony abnormality. No fracture or subluxation. Degenerative changes with disc space narrowing and osteophyte formation is seen at C5/6 and C6/7. Posterior facet joints appear well-maintained. No significant neural foraminal osseous encroachment. Surgical clips are seen in the paratracheal soft tissues The surrounding prevertebral soft tissues are otherwise unremarkable. IMPRESSION: Degenerative disc disease at C5/6 and C6/7. XR DEXA appendicular skeleton 08/12/24 IMPRESSION: 1. DIAGNOSIS: Osteoporosis based on the lowest T-score value of -3.5 in the lumbar spine applying World Health Organization criteria. MR LUMBAR SPINE WITHOUT CONTRAST 12/04/24 FINDINGS: Last rib-bearing vertebra labeled T12. No bone marrow STIR signal abnormality. Bone marrow inhomogeneity throughout the axial skeleton and bony pelvis. Disc desiccation, L5-S1 and to a lesser extent L4-5. There is normal alignment. The conus medullaris ends at pedicle of L1 with normal signal. T12-L1: No disc herniation. No neuroforamina stenosis. L1-2: No disc herniation. No neuroforamina stenosis. L2-3: Broad-based disc bulging. Facet joint hypertrophy. No compression upon neural elements. L3-4: Broad-based disc bulging. Facet joint hypertrophy. No compression upon neural elements. L4-5: Broad-based disc bulging. Facet joint and ligamentum flavum hypertrophy. Reduced AP diameter of the thecal sac and the neural foramina. No compression upon neural elements. L5-S1: There is a right foraminal broad-based disc herniation abutting the right S1 nerve root. Facet joint hypertrophy. Right neuroforamina narrowing. No prevertebral compartment hematoma, mass or fluid collection. Hyperintense T2/cystic lesion in the left kidney. IMPRESSION: Right foraminal broad-based disc herniation L5-S1 abutting the right S1 nerve root on its lateral recess and likely encroaching right L5. Spondylosis at L4-5 without compression upon neural elements. Calcium metabolic disorder/osteopenia versus osteoporosis. Assessment & Plan Assessment & Plan (1) Chronic radicular pain of lower back: Code(s): M54.16 - Radiculopathy, lumbar region; G89.29 - Other chronic pain Category: Medical (2) Lumbosacral spondylosis: Code(s): M47.817 - Spondylosis without myelopathy or radiculopathy, lumbosacral region Category: Medical (3) Lumbar degenerative disc disease: Code(s): M51.369 - Other intervertebral disc degeneration, lumbar region without mention of lumbar back pain or lower extremity pain Category: Medical (4) Lumbar disc herniation with radiculopathy: Code(s): M51.16 - Intervertebral disc disorders with radiculopathy, lumbar region Category: Medical (5) Lumbar radiculopathy: Code(s): M54.16 - Radiculopathy, lumbar region Category: Medical (6) Fibromyalgia: Code(s): M79.7 - Fibromyalgia Category: Medical Plan The plan includes proceeding with the right-sided L5 diagnostic selective nerve block once insurance approval is obtained, as it is necessary for determining surgical candidacy. Due to osteoporosis, steroidal injections are not an option, and the nerve block will serve as a temporary pain relief measure and diagnostic tool. The patient will continue with current medications, including amitriptyline and gabapentin, and will receive a limited refill of oxycodone for severe pain management until the procedure is completed. The patient is advised to avoid taking oxycodone the day before the injection to ensure accurate diagnostic results. She is encouraged to continue monthly counseling sessions to manage anxiety and depression related to chronic pain. Schedule right diagnostic L5 selective nerve block with local and fluoroscopy. Expectations, risks and benefits were reviewed. Patient is aware she will be contacted to schedule this procedure. Patient was informed and verbally consented to the use of an ambient scribe for clinic note documentation during this visit. Medications: New oxycodone Partial Fill upon patient request. 5 mg PO Q8H PRN 30 tabs 0RF pain (scale score 7-10) 10 days G89.29 - Other chronic pain, M47.817 - Spondylosis without myelopathy or radiculopathy, lumbosacral region, M51.16 - Intervertebral disc disorders with radiculopathy, lumbar region, M51.369 - Other intervertebral disc degeneration, lumbar region without mention of lumbar back pain or lower extremity pain, M54.16 - Radiculopathy, lumbar region Patient Instructions: I discussed with the patient the necessity of the right-sided L5 diagnostic selective nerve block to evaluate her candidacy for surgery, given her right foraminal disc herniation at L5-S1. We reviewed the limitations posed by her osteoporosis, which precludes steroidal injections, and the temporary nature of the nerve block as a diagnostic tool. I emphasized the importance of not taking oxycodone the day before the procedure to ensure the accuracy of the diagnostic results. We also discussed her current pain management regimen, including the use of amitriptyline and gabapentin, and the provision of a limited oxycodone refill for severe pain. Coding Level of Care Code Est Pt Level 4 (27754) Complex EM visit Add On G2211 Diagnoses Chronic radicular pain of lower back M54.16; G89.29 Lumbosacral spondylosis M47.817 Lumbar degenerative disc disease M51.369 Lumbar disc herniation with radiculopathy M51.16 Lumbar radiculopathy M54.16 Fibromyalgia M79.7
[2025-04-17 10:37] VITALS: BP 114/63; PULSE 91; O2SAT 97; BMI 25.5
--- OUTSIDE RECORDS SUMMARY | 2025-04-17 11:34 | XMS_ITS | Clinical Summary ---
Author Organization [facility] Address [address] [place] [id number] Phone Care Team Providers Care Diecast Machine Operator Name Role Phone Raymundo Mcdonald [...] VACCINES (1 of 2) 2017 COVID-19 VACCINE (2023-2 5 season) 2024 HEPATITIS A VACCINES Aged [...] Devices Not on file Insurance [place] [address] [place] [address] A[employer] [place] [id number] Care Teams Diecast Machine Operator Relationship Specialty Start Date End Date Raymundo Mcdonald NP [address] [place] [address] PCP - General Nurse Practitioner 08/03/23 Additional Source Comments The information contained in this document represents components of the legal health record. It is not the complete legal health record.[facility]
--- OUTSIDE RECORDS SUMMARY | 2025-04-17 11:34 | XMS_ITS | Encounter Summary ---
Author Organization [facility], Address [address] [place] [address] Phone Care Team Providers Care Digital Marketing Executive Name Role Phone Raymundo Mcdonald NP Primary Care Provider [phone] Encounter Details Date Type Department Care Team (Late st Contact Info) Description 10/10/2023 Documentation Only [facility], [address] [place] [address] [place] [address] [place] [address] Social History Tobacco Use Types [...] on filedocumented in this encounter Care Teams Digital Marketing Executive Relationship Specialty Start Date End Date Raymundo Mcdonald NP [address] [place] [id number] PCP - General Nurse Practitioner 10/10/23 documented as of this encounter
--- OUTSIDE RECORDS SUMMARY | 2025-04-17 11:34 | XMS_ITS | Clinical Summary ---
Author Organization [employer] [facility] Address [address] [place] [address] Care Team Providers Care Body Shop Technician Name Role Phone Cr Madera MD Primary Care Provider [phone] Surgical History Surgery Date Site/Laterality Comments VENTRAL HERNIA REPAIR PROCEDURE: HISTORICAL VTRL WALL HERNIA RE APPENDECTOMY PROCEDURE: HISTORICAL APPENDECTOMY; COMMENT: w/ incisional hernia repair HYSTERECTOMY PROCEDURE: HISTORICAL TOTAL HYSTERECTOMY WITH BSO HERNIA REPAIR PROCEDURE: TN REPAIR FIRST ABDOMINAL WALL HERNIA Medical History [...] age to complete this topic Care Teams Body Shop Technician Relationship Specialty Start Date End Date Cr Madera MD [address] [place] [id number] PCP - General Internal Medicine 07/05/17
--- OUTSIDE RECORDS SUMMARY | 2025-04-17 11:34 | XMS_ITS | Clinical Summary ---
Author Organization [employer] Address [address] [facility] 7[address] [place] [address] Care Team Providers Care Quality System Manager Name Role Phone Unavailable Primary Care [...] Upcoming Encounters Date Type Department Care Team ([facility] st Contact Info) Description 06/09/2025 1:30 PM EDT Office Visit [facility] OPTOMETRY [address] [place] [id number] Pily Perkins, OD [address] [place] [address] Health Maintenance Due Date Last Done Comments [...] patient's age to complete this topic Insurance [facility] A[facility]
== END 2025-04-17 11:41 | disposition home or self-care (01) ==
LOC: HO.PMC 10:32
PROVIDERS: PCP Nurse Practitioner Family; Visit Provider Nurse Practitioner Family
DX: G89.29 Other chronic pain (principal); M47.817 Spondylosis without myelopathy or radiculopathy, lumbosacral region; M51.369 Other intervertebral disc degeneration, lumbar region without mention of lumbar back pain or lower extremity pain; M51.16 Intervertebral disc disorders with radiculopathy, lumbar region; M79.7 Fibromyalgia
CPT/HCPCS: 99214

== ENCOUNTER 2025-04-21 14:29 | Outpatient (AMB) | payer OTHER, SELFPAY ==
[2025-04-21 14:43] VITALS: BP 124/70; PULSE 93; O2SAT 96; BMI 26.4
--- NOTE | 2025-04-21 14:43 | A.OFFVIS_ITS ---
Vital Signs 04/21/25 14:43 Height 5 ft 3 in Weight 149 lb 0.52 oz BMI 26.4 BP 124/70 Blood Pressure Location Rt brachial Position Sitting Pulse 93 Pulse Source Pulse Oximeter Pulse Oximetry (%) 96 Oxygen Delivery Method Room Air Intake Visit Reasons: f/u osteoporosis/prolia #1 injection Intake Note: Patient present today for Osteoporosis and Prolia Injection #1. Supervisor Rough End Required: Yes Supervisor Rough End Language: Erp Consultant Services: Supervisor Rough End Present Supervisor Rough End [facility] Information Interpreted: non-clinical & clinical Accompanied by: Daughter Allergies Sulfa (Sulfonamide Antibiotics) (SULFA (SULFONAMIDE ANTIBIOTICS)) Allergy (Intermediate, Verified 04/21/25 14:47) HIVES Latex, Natural Rubber Allergy (Mild, Verified 04/21/25 14:47) Rash egg Allergy (Verified 04/21/25 14:47) Abdominal Pain strawberry Allergy (Verified 04/21/25 14:47) Abdominal Pain aspirin (ASPIRIN) Adverse Reaction (Intermediate, Verified 04/21/25 14:47) ABD PAIN morphine (MORPHINE) Adverse Reaction (Intermediate, Verified 04/21/25 14:47) Abdominal Pain almond Allergy (Severe, Uncoded 04/21/25 14:47) Stomack pain Lactose intollerance Allergy (Severe, Uncoded 04/21/25 14:47) Stomach pain, nausceau Medication List - Last Reconciled 04/21/25 by Deuce Valdes MD albuterol sulfate 2.5 mg (3 mL) inhalation DAILY PRN amitriptyline 50 mg (2 x 25 mg) PO BEDTIME 30 days amlodipine 10 mg PO DAILY azelastine 1 spray intranasal BID cane Quad cane cholecalciferol (vitamin D3) 25 mcg PO DAILY clonazepam 0.5 mg PO DAILY PRN clonazepam 1 mg PO BEDTIME PRN cyproheptadine 4 mg PO BEDTIME PRN 30 days diclofenac sodium 1% 2 grams topical BID PRN NS diclofenac sodium 50 mg PO BID PRN famotidine 40 mg PO BEDTIME gabapentin 800 mg PO TID galcanezumab-gnlm (Emgality Pen) 120 mg subcut Q30D hydrocortisone 2.5% 1 appl ND Q8-12H hydrocortisone acetate (Anusol-HC) 25 mg ND BID PRN hyoscyamine sulfate 0.125 mg PO BID-QID lansoprazole 30 mg PO DAILY linaclotide (Linzess) 290 mcg PO DAILY loratadine 10 mg PO DAILY memantine 10 mg PO Q OTHER DAY mometasone-formoterol 200-5 mcg/actuation (Dulera) 2 puffs inhalation Q12H 30 days montelukast 10 mg PO BEDTIME multivitamin (Daily-Laxmi tablet) 1 tab PO DAILY naloxone 4 mg/actuation (Narcan) 1 spray intranasal Q2M omega-3 acid ethyl esters 1 cap PO BID 90 days omeprazole 40 mg PO DAILY ondansetron 8 mg PO Q8H PRN oxycodone 5 mg PO Q8H PRN 10 days polyethylene glycol 3350 (Gavilax) 17 grams PO DAILY potassium chloride ER 10 mEq PO DAILY pravastatin 20 mg PO BEDTIME prazosin 2 mg PO BEDTIME rizatriptan 10 mg PO Q2H PRN 30 days MDD 20 mg romosozumab-aqqg (Evenity) 210 mg (2.34 mL) subcut Q28D sennosides (Senna Laxative) 17.2 mg (2 x 8.6 mg) PO BEDTIME sertraline 100 mg PO DAILY Shower Chair As directed spironolactone 25 mg PO DAILY ubrogepant (Ubrelvy) 50 - 100 mg (0.5 - 1 x 100 mg) PO ONCE PRN 30 days HPI Comments Details: 59 year-old female with past medical history nontoxic multinodular goiter who is seen in follow-up today for papillary thyroid microcarcinoma and hyperparathyroidism. The patient was seen initially by for 3.2 cm left-sided thyroid lobe nodule and underwent FNA with benign cytology. She complained of compressive symptoms in this was referred to Dr. Hennessy for surgical thyroidectomy. She also was found to have laboratory evidence of primary hyperparathyroidism. She underwent left hemithyroidectomy with bilateral inferior parathyroidectomy on 01/15/2019. Her thyroid surgical pathology revealed papillary microcarcinoma of the thyroid, 0.4 cm, unifocal, no angio invasion or lymphatic invasion, no extrathyroidal extension. PT1a pNX. No additional treatment was recommended. Surgical pathology from her parathyroid glands revealed a right inferior parathyroid to have normocellular pathology, and the left inferior parathyroid gland to be hypercellular. The right inferior parathyroid weight 200 mg with the left inferior parathyroid weighing 160 mg. Immediate postoperative PTH was 23. No intraoperative PTH was assessed. She did initially request completion thyroidectomy, but after consultation with Dr. Hennessy she has decided against this and wishes to instead proceed with yearly surveillance of her R sided thyroid nodules. She continued to complain of symptoms of body aches and abdominal pain. She was also complaining of the sensation of swelling in her neck. Labs were repeated and were largely unchanged. Calcium remained high normal. It was thought that when corrected for Albumin her Calcium was WNL. 24 hour urine calcium was WNL. Her thyroid US revealed interval growth of a nodule on in the R lobe, and a newly identified complex cystic subcentimeter nodule within the R lobe. She underwent FNA biopsy of this R sided nodule 04/23/2020 with benign cytology. Recent labs reveal hypokalemia and elevated LFTs. Her Atorvastatin was stopped by her PCP, and she was started on Potassium supplements. She was worked up for hyperaldosteronism, and labs were not consistent with this with an elevated renin level. She had a repeat DEXA which shows worsening in the spine, but stability in hip and distal forearm. Thyroid US: 05/27/2021 Right Thyroid Lobe: 5.5 x 2.2 x 2.4 cm, volume 15.2 mL. Previously 5.5 x 2.2 x 2.4 cm, volume 15.2 mL. Parenchyma: The gland echotexture is homogeneous. Thyroid vascularity is increased. Left Thyroid Lobe: Surgically absent. Isthmus: 0.3 cm in maximum AP dimension. Previously 0.2 cm. Estimated total number of nodules greater than or equal to 1 cm: 0. Plate Painter nodules are described as follows: 1.? Location: Right mid lateral. ?? ? Size: 0.9 x 0.5 x 0.7 cm, volume 0.16 mL. ?? ? Previously: 1.0 x 0.7 x 0.6 cm, volume 0.22 mL. ?? ? Nodule characteristics: ?? ? Composition: Solid (2). ?? ? Echogenicity: Hypoechoic (2). ?? ? Shape: Not taller than wide (0). ?? ? Margins: Smooth (0). ?? ? Echogenic Foci: None (0). ? ACR TI-RADS total points: 4 ?? ? ACR TI-RADS category: 4 ? Significant change in size (>/= 20% in 2 dimensions and minimal increase of 2 mm or 50% or greater increase in volume): No ?? ? Change in features: No ?? ? Change in ACR TI-RADS risk category: No 2.? Location: Right inferior. ?? ? Size: 0.4 x 0.4 x 0.5 cm, volume 0.04 mL. ?? ? Previously: New since the prior study. ?? ? Nodule characteristics: ?? ? Composition: Cystic(0). ?? ? ACR TI-RADS total points: 0 ?? ? ACR TI-RADS category: 1 ?? ? 3.? Location: Right inferior. ?? ? Size: 0.5 x 0.3 x 0.3 cm, volume 0.02 mL. ?? ? Previously: 0.3 x 0.3 x 0.4 cm, volume 0.02 mL. ?? ? Nodule characteristics: ?? ? Composition: Cystic(0). ?? ? ACR TI-RADS total points: 0 ?? ? ACR TI-RADS category: 1 ? Significant change in size (>/= 20% in 2 dimensions and minimal increase of 2 mm or 50% or greater increase in volume): ?? ? Change in features: ?? ? Change in ACR TI-RADS risk category: NODES: No lymphadenopathy is seen in the tissue surrounding the thyroid gland. DEXA: 08/19/2021 FINDINGS: AP SPINE L1-L4: Current: BMD 0.801 g/cm2, Z-score -2.6, T-score -3.2, osteoporosis, 6.5% decrease from baseline (<5% change is not significant). Baseline: BMD 0.857 g/cm2. LEFT FEMUR, NECK: Current: BMD 0.821 g/cm2, Z-score -0.7, T-score -1.6, osteopenia. Baseline: BMD 0.845 g/cm2. LEFT FEMUR, TOTAL: Current: BMD 0.911 g/cm2, Z-score -0.3, T-score -0.8, normal, 0.0% no change from baseline (<5% change is not significant). Baseline: BMD 0.911 g/cm2. LEFT FOREARM RADIUS 33%: BMD 0.721 g/cm2, Z-score -1.4, T-score -1.8, osteopenia, 0.8% decrease from baseline (<5% change is not significant). Baseline: BMD 0.727 g/cm2. Labs: On Evenity since 02/2024 . c/o injection site reaction in abd . Has never taken injection in shoulder . Has fibromyalgia . No fx since last visit . Finished Evenity injections and due for 1st Prolia injection today PFSH Medical History Low vitamin B12 level Smoker Numbness Wheezing Chronic radicular pain of lower back Foot pain, bilateral Joint pain in both hands Breast pain Hypokalemia Breast pain, right Allergies Migraines Renal calculi Bipolar disorder Chronic abdominal pain Osteoporosis Hyperparathyroidism Multinodular thyroid Depression Fibromyalgia Thrombocytosis Leukocytosis GERD (gastroesophageal reflux disease) Thyroid cancer PONV (postoperative nausea and vomiting) Elevated cholesterol Difficulty swallowing Vitamin D deficiency Anxiety Pulmonary nodule Asthma HTN (hypertension) Surgical History H/O pyloroplasty (03/27/24) History of excision of mass Hx of thyroidectomy H/O esophagogastroduodenoscopy H/O colonoscopy History of bilateral oophorectomy Hx of cholecystectomy S/P excision of lipoma History of total abdominal hysterectomy Hx of appendectomy Family History Father Diabetes mellitus Skin cancer Prostate cancer Mother HTN (hypertension) High cholesterol Mental health disorder Maternal Grandfather Myocardial infarction Maternal Grandmother No problems noted. Paternal Grandfather No problems noted. Paternal Grandmother Breast cancer Sister Mental health disorder Social History Household Members: None Housing: Apartment Are you a primary toddler caregiver to a significant other at home: No Do you presently have visiting nurse or other home services: No Alcohol intake: never Patient Tobacco Use Status: Current everyday Tobacco user Tobacco use type: Cigarette Cigarettes Per Day: 5 Years Smoked: 20 e-Cigarette/Vaping Use: Never Used Second Hand Smoke Exposure: No Advance Directives Date on File: 10/05/16 service: No Current occupational status: disabled Sexual orientation: Straight/Heterosexual Gender identity: Female Cognitive needs: No Hearing needs: No Vision needs: Yes Physical Exam Vital Signs: BMI result Body Mass Index 26.4 Assessment & Plan Assessment & Plan (1) Osteoporosis: Code(s): M81.0 - Age-related osteoporosis without current pathological fracture Category: Medical Plan: Status post parathyroidectomy with DEXA bone density 2 years ago showing significant osteoporosis in the spine. Secondary workup was otherwise negative. Repeat DEXA shows [id number] osteoporosis of lumbar spine. Transition from Evenity to Prolia today. Plan is to transition to Prolia today for 1st injection. We will repeat bone density in 6 months' time. Based on repeat bone density can determine length of Prolia which should be about 1-2 years time total duration Orders: Orders XR DEXA axial skeleton 6 Months M81.0 - Age-related osteoporosis without current pathological fracture Coding Level of Care Code Est Pt Level 3 (66520) Diagnoses Osteoporosis M81.0
--- OUTSIDE RECORDS SUMMARY | 2025-04-21 15:12 | XMS_ITS | Clinical Summary ---
Author Organization [employer] Address [address] [facility] [address] [place] [address] Care Team Providers Care Mule Rider Name Role Phone Unavailable Primary Care Provider [...] Upcoming Encounters Date Type Department Care Team ([facility] st Contact Info) Description 06/09/2025 1:30 PM EDT Office Visit [facility] OPTOMETRY [address] [place] [address] Pily Perkins, OD [address] [place] [address] Health Maintenance Due Date Last Done Comments [...] this topic Meningococcal Vaccine Aged Out No shryeas vik eligible based on patient's age to complete this topic RSV under 20 months Aged Out No longe r eligible based on patient's age to complete this topic Rotavirus Vaccines Aged Out No longer eligible based on patient's age to complete this topic Insurance [facility] ACO
--- OUTSIDE RECORDS SUMMARY | 2025-04-21 15:12 | XMS_ITS | Clinical Summary ---
Author Organization [employer] [facility] Address [address] [place] [address] Care Team Providers Care Ict Development Manager Name Role Phone Cr Madera [...] age to complete this topic Care Teams Ict Development Manager Relationship Specialty Start Date End Date Cr Madera MD [address] [place] [id number] PCP - General Internal Medicine 07/05/17
--- OUTSIDE RECORDS SUMMARY | 2025-04-21 15:12 | XMS_ITS | Clinical Summary ---
Author Organization [facility] Address [address] [facility] [address] [place] [phone] Phone Care Team Providers Care Ore Roaster Name Role Phone Raymundo Mcdonald NP Primary [...] Devices Not on file Insurance [place] [address] [place] [address] [employer] [place] [id number] Care Teams Ore Roaster Relationship Specialty Start Date End Date Raymundo Mcdonald NP [address] [place] [address] PCP - General Nurse Practitioner 08/03/23 Additional Source Comments The information contained in this document represents components of the legal health record. It is not the complete legal health record.[facility]
--- OUTSIDE RECORDS SUMMARY | 2025-04-21 15:12 | XMS_ITS | Encounter Summary ---
Author Organization [facility], Address [address] [place] [address] Phone Care Team Providers Care Ticker Maintainer Name Role Phone Raymundo Mcdonald NP Primary Care Provider [phone] Encounter Details Date Type Department Care Team (Late st Contact Info) Description 10/10/2023 Documentation Only [facility], [address] [place] [address] [place], [place] [address] [place] [address] Social History Tobacco Use Types [...] on filedocumented in this encounter Care Teams Ticker Maintainer Relationship Specialty Start Date End Date Raymundo Mcdonald NP [address] [place] [id number] PCP - General Nurse Practitioner 10/10/23 documented as of this encounter
== END 2025-04-21 15:20 | disposition home or self-care (01) ==
LOC: HO.ENCR 14:29
PROVIDERS: PCP Nurse Practitioner Family; Visit Provider Internal Medicine Endocrinology, Diabetes & Metabolism
DX: M81.0 Age-related osteoporosis without current pathological fracture (principal)
CPT/HCPCS: 99213

== ENCOUNTER → 2025-04-21 14:29 | Outpatient (BNVA) | payer OTHER, SELFPAY | PROVIDERS: PCP Nurse Practitioner Family; Visit Provider Internal Medicine Endocrinology, Diabetes & Metabolism | DX: M81.0 Age-related osteoporosis without current pathological fracture (principal) | CPT/HCPCS: 96372; 99212; J0897 ==

== ENCOUNTER 2025-05-13 11:28 | Outpatient (AMB) | payer OTHER, SELFPAY ==
--- NOTE | 2025-05-13 11:33 | HO.NEPHOV ---
Vital Signs 05/13/25 11:38 Height 5 ft 3 in Weight 149 lb BMI 26.4 BP 146/84 H Blood Pressure Location Lt brachial Position Sitting Pulse 110 H Pulse Source Pulse Oximeter Pulse Oximetry (%) 98 Oxygen Delivery Method Room Air Intake Visit Reasons: FU-Conf Dish Network Installer Required: No Dish Network Installer Services: Dish Network Installer Offered & Declined Dish Network Installer Name: Daughter will translate Accompanied by: Daughter Allergies Sulfa (Sulfonamide Antibiotics) (SULFA (SULFONAMIDE ANTIBIOTICS)) Allergy (Intermediate, Verified 05/13/25 11:41) HIVES Latex, Natural Rubber Allergy (Mild, Verified 05/13/25 11:41) Rash egg Allergy (Verified 05/13/25 11:41) Abdominal Pain strawberry Allergy (Verified 05/13/25 11:41) Abdominal Pain aspirin (ASPIRIN) Adverse Reaction (Intermediate, Verified 05/13/25 11:41) ABD PAIN morphine (MORPHINE) Adverse Reaction (Intermediate, Verified 05/13/25 11:41) Abdominal Pain almond Allergy (Severe, Uncoded 04/21/25 14:47) Stomack pain Lactose intollerance Allergy (Severe, Uncoded 04/21/25 14:47) Stomach pain, nausceau Medication List - Last Reconciled 05/13/25 by Jayant Damon MD albuterol sulfate 2.5 mg (3 mL) inhalation DAILY PRN amitriptyline 50 mg (2 x 25 mg) PO BEDTIME 30 days amlodipine 10 mg PO DAILY azelastine 1 spray intranasal BID cane Quad cane cholecalciferol (vitamin D3) 25 mcg PO DAILY clonazepam 0.5 mg PO DAILY PRN clonazepam 1 mg PO BEDTIME PRN cyproheptadine 4 mg PO BEDTIME PRN 30 days diclofenac sodium 1% 2 grams topical BID PRN NS diclofenac sodium 50 mg PO BID PRN famotidine 40 mg PO BEDTIME gabapentin 800 mg PO TID galcanezumab-gnlm (Emgality Pen) 120 mg subcut Q30D hydrocortisone 2.5% 1 appl NJ Q8-12H hydrocortisone acetate (Anusol-HC) 25 mg [place] BID PRN lansoprazole 30 mg PO DAILY linaclotide (Linzess) 290 mcg PO DAILY loratadine 10 mg PO DAILY memantine 10 mg PO Q OTHER DAY mometasone-formoterol 200-5 mcg/actuation (Dulera) 2 puffs inhalation Q12H 30 days montelukast 10 mg PO BEDTIME multivitamin (Daily-Laxmi tablet) 1 tab PO DAILY naloxone 4 mg/actuation (Narcan) 1 spray intranasal Q2M omega-3 acid ethyl esters 1 cap PO BID 90 days omeprazole 40 mg PO DAILY ondansetron 8 mg PO Q8H PRN oxycodone 5 mg PO Q8H PRN 10 days polyethylene glycol 3350 (Gavilax) 17 grams PO DAILY potassium chloride ER 10 mEq PO DAILY pravastatin 20 mg PO BEDTIME prazosin 2 mg PO BEDTIME prazosin 1 mg PO BEDTIME rizatriptan 10 mg PO Q2H PRN 30 days MDD 20 mg romosozumab-aqqg (Evenity) 210 mg (2.34 mL) subcut Q28D sennosides (Senna Laxative) 17.2 mg (2 x 8.6 mg) PO BEDTIME sertraline 100 mg PO DAILY Shower Chair As directed spironolactone 25 mg PO DAILY ubrogepant (Ubrelvy) 50 - 100 mg (0.5 - 1 x 100 mg) PO ONCE PRN 30 days HPI Comments Details: 58-year-old female with an extensive medical history includes asthma, depression, bipolar disorder, hyperlipidemia, fibromyalgia, GERD, migraine, hyperthyroidism, thyroid cancer status post thyroidectomy, She has been referred for hypokalemia 2 years ago she had hypokalemia which was corrected. Recently she has had persistent hypokalemia. Potassium was in the low 2s. She was on chlorthalidone 25 mg a day. This was decreased to 12.5 mg and subsequently discontinued 3 weeks ago. The recent potassium was 4.4 millimoles per L on September 21. Serum chloride and bicarb levels were normal no alkalosis. Renal function has also been normal. She denies any polyuria or polydipsia. No history of any diarrhea. There is history of constipation. Currently she is on 8 tablets of potassium chloride. Of note she says not on diuretics at this time. However, daughter gave her some natural diuretics for edema She is on high dose of Amlodipine -10mg 12/25/23; c/o Cramps ;K was low ;KCL increased to 10 mg ;Not of diuretics ;Has leg edema - on Amlodipine 5 mg QD ;Urine K was high CTA - NO MAGDALENA 01/15/24 ;Feels better ;Edema resolved ;NO more cramps 02/15/2024. She was supposed to be on 8 tablets of potassium chloride but she is still taking 10 tablets. 06/24/24 ;c/o Pain in back for 2 months- waiting for scan ; Pain radiating down left left- on and off 10/31/24 ;c/o dysuria ,Occasional back pain 12/26/24 Here for follow. c/o generalized body pain and leg edema Wants to see neurosurgeon c/o Leg edema No dyspnea 05/13/25 The patient is a 59-year-old female presenting with abdominal pain. Abdominal pain is severe, located under the ribs and extending to the back. Pain onset was in March, potentially linked to new medication - History of gastroesophageal reflux disease with unusual vomiting episodes through the nose. Last gastroenterology follow-up was in August, pending endoscopy. Medications: - Medication for gastroesophageal reflux disease [employer] Medical History Low vitamin B12 level Smoker Numbness Wheezing Chronic radicular pain of lower back Foot pain, bilateral Joint pain in both hands Breast pain Hypokalemia Breast pain, right Allergies Migraines Renal calculi Bipolar disorder Chronic abdominal pain Osteoporosis Hyperparathyroidism Multinodular thyroid Depression Fibromyalgia Thrombocytosis Leukocytosis GERD (gastroesophageal reflux disease) Thyroid cancer PONV (postoperative nausea and vomiting) Elevated cholesterol Difficulty swallowing Vitamin D deficiency Anxiety Pulmonary nodule Asthma HTN (hypertension) Surgical History H/O pyloroplasty (03/27/24) History of excision of mass Hx of thyroidectomy H/O esophagogastroduodenoscopy H/O colonoscopy History of bilateral oophorectomy Hx of cholecystectomy S/P excision of lipoma History of total abdominal hysterectomy Hx of appendectomy Family History Father Diabetes mellitus Skin cancer Prostate cancer Mother HTN (hypertension) High cholesterol Mental health disorder Maternal Grandfather Myocardial infarction Maternal Grandmother No problems noted. Paternal Grandfather No problems noted. Paternal Grandmother Breast cancer Sister Mental health disorder Social History Household Members: None Housing: Apartment Are you a primary early breastfeeding care specialist to a significant other at home: No Do you presently have visiting nurse or other home services: No Alcohol intake: never Patient Tobacco Use Status: Current everyday Tobacco user Tobacco use type: Cigarette Cigarettes Per Day: 5 Years Smoked: 20 e-Cigarette/Vaping Use: Never Used Second Hand Smoke Exposure: No Advance Directives Date on File: 10/05/16 service: No Current occupational status: disabled Sexual orientation: Straight/Heterosexual Gender identity: Female Cognitive needs: No Hearing needs: No Vision needs: Yes Physical Exam Vital Signs: Last Vital Signs Pulse 110 H 05/13/25 11:38 BP 146/84 H 05/13/25 11:38 Pulse Ox 98 05/13/25 11:38 Oxygen Delivery Method Room Air 05/13/25 11:38 BMI result Body Mass Index 26.4 Const General: cooperative and no acute distress Orientation/consciousness: patient oriented x3 Resp Effort & Inspection: normal respiratory effort and able to speak in complete sentences Neuro General: patient oriented x3 Cognition (Neuro): normal cognition Psych Appearance: grossly normal Mental Status: mental status grossly normal Speech and movement: Normal speech and movement present Affect: normal affect Attitude: cooperative Results Reviewed Nephrology Results: Sodium, (135-145) 141 mmol/L 04/17/25 Potassium, (3.3-5.1) 4.1 mmol/L 04/17/25 Chloride, (96-108) 110 mmol/L H 04/17/25 Carbon Dioxide, (22-29) 23 mmol/L 04/17/25 BUN, (9-16) 7 mg/dL L 04/17/25 Creatinine, (0.5-1.4) 0.60 mg/dL 04/17/25 Calcium, (8.4-10.2) 9.1 mg/dL 04/17/25 Renal US 11/21/24 Assessment & Plan Assessment & Plan (1) HTN (hypertension): Code(s): I10 - Essential (primary) hypertension Category: Medical (2) Hypokalemia: Code(s): E87.6 - Hypokalemia Category: Medical (3) Dysuria: Code(s): R30.0 - Dysuria Category: Medical Plan Middle-aged woman with multiple medical problems comes in with significant hypokalemia. Initially she was on chlorthalidone with potassium supplementation. However after lowering chlorthalidone potassium was still significantly low. Currently she is on 100 mEq of potassium supplementation. No alkalosis. She does have hypertension. In the past she had plasma renin and aldosterone levels which were all in the normal range. Serum Aldosterone was 19 and plasma renin was elevated at 14 Causes include diuretic use, No evidence of renin producing tumor, or renal artery stenosis , based on CT SCAN AVOID chlorthalidone Keep Spironolactone 25 mg DAILY and watch K KCL (10 meq ) 6 tabs a day ( she has increased it form 3 to 6 a day) Leg edema May be due to Amlodipine Should stay on low salt diet Encouraged to increase PO fluid intake Orders: Orders UA and rflx microscopic 05/13/25 I10 - Essential (primary) hypertension Coding Level of Care Code Est Pt Level 4 (88426) Diagnoses HTN (hypertension) I10 Hypokalemia E87.6 Dysuria R30.0
[2025-05-13 11:38] VITALS: BP 146/84; PULSE 110; O2SAT 98; BMI 26.4
--- OUTSIDE RECORDS SUMMARY | 2025-05-13 13:58 | XMS_ITS | Encounter Summary ---
Author Organization [facility], Address [address] [place] [address] Phone Care Team Providers Care Saas Architect Name Role Phone Raymundo Mcdonald NP Primary Care Provider [phone] Encounter Details Date Type Department Care Team (Late st Contact Info) Description 10/10/2023 Documentation Only [facility], [address] [place] [address] [place], [place] [address] [place] [address] Social History Tobacco Use Types [...] on filedocumented in this encounter Care Teams Saas Architect Relationship Specialty Start Date End Date Raymundo Mcdonald NP [address] [place] [address] PCP - General Nurse Practitioner 10/10/23 documented as of this encounter
--- OUTSIDE RECORDS SUMMARY | 2025-05-13 13:58 | XMS_ITS | Clinical Summary ---
Author Organization [facility] Address [address] [place] [address] Care Team Providers Care Vocational Training Director Name Role Phone Cr Madera MD Primary Care Provider [phone] Surgical History Surgery Date Site/Laterality Comments VENTRAL HERNIA REPAIR PROCEDURE: HISTORICAL VTRL WALL HERNIA RE APPENDECTOMY PROCEDURE: HISTORICAL APPENDECTOMY; COMMENT: w/ incisional hernia repair HYSTERECTOMY PROCEDURE: HISTORICAL TOTAL HYSTERECTOMY WITH BSO HERNIA REPAIR PROCEDURE: [place] REPAIR FIRST ABDOMINAL WALL HERNIA Medical History [...] 08/07/2022 Social Influencers of Health Screening 08/07/2022 Depression Screening 09/04/2024 COVID-19 Vaccine ( - 2023-2 5 season) 2025 Influenza Vaccine (#1) 2025 HIB Vaccines Aged [...] age to complete this topic Care Teams Vocational Training Director Relationship Specialty Start Date End Date Cr Madera MD [address] [place] [phone] PCP - General Internal Medicine 07/05/17
--- OUTSIDE RECORDS SUMMARY | 2025-05-13 13:58 | XMS_ITS | Clinical Summary ---
Author Organization [employer] Address [address] [facility] 7t [place] [address] Care Team Providers Care Sucker Machine Operator Name Role Phone Unavailable Primary Care Provider [...] Upcoming Encounters Date Type Department Care Team ([facility] st Contact Info) Description 06/09/2025 1:30 PM EDT Office Visit [facility] OPTOMETRY [address] [place] [address] Pily Perkins, OD [address] [place] [address] Health Maintenance Due Date Last Done Comments [...] 1997 HPV/Cotest 1997 Mammogram 2007 Zoster Vaccines (2 of 2) 09/25/2024 07/31/2024 COVID-19 Vaccine (3 - season) 2025 07/05/2021, 01/09/2021 Influenza Vaccine (#1) 2025 , 09/21/2023, 05/27/2021, [...] patient's age to complete this topic Insurance [facility]
--- OUTSIDE RECORDS SUMMARY | 2025-05-13 13:58 | XMS_ITS | Clinical Summary ---
Author Organization [facility] Address [address] [place] [address] Phone Care Team Providers Care Tar Heater Operator Name Role Phone Raymundo Mcdonald NP [...] 2017 ZOSTER VACCINES (1 of 2) 2017 INFLUENZA VACCINE (#1) 2025 COVID-19 VACCINE (2023-2 5 season) 2025 HEPATITIS A VACCINES Aged Out No long [...] Devices Not on file Insurance [place] [address] [place] [address] [place] [address] [place] [address] [place] [address] [place] [address] ACO Care Teams Tar Heater Operator Relationship Specialty Start Date End Date Raymundo Mcdonald NP [facility] [place] [address] PCP - General Nurse Practitioner 08/03/23 Additional Source Comments The information contained in this document represents components of the legal health record. It is not the complete legal health record.[facility]
--- OUTSIDE RECORDS SUMMARY | 2025-05-13 13:58 | XMS_ITS | Clinical Summary ---
Author Organization [facility], Address [address] [place] [address] [place] [address] Phone Care Team Providers Care Party Chief Name Role Phone Raymundo Mcdonald NP Primary Care Provider [phone] Allergies Active Allergy Reactions Criticality Noted Date [...] of 1 - PCV) 017 Influenza Vaccine (#1) 2025 Insurance [facility] Medicaid Care Teams Party Chief Relationship Specialty Start Date End Date Raymundo Mcdonald NP [address] [place] [address] PCP - General Nurse Practitioner 10/10/23
== END 2025-05-13 12:02 | disposition home or self-care (01) ==
LOC: HO.HKA 11:29
PROVIDERS: PCP Nurse Practitioner Family; Visit Provider Internal Medicine Hypertension Specialist
DX: I10 Essential (primary) hypertension (principal); E87.6 Hypokalemia; R30.0 Dysuria
CPT/HCPCS: 99214

== ENCOUNTER → 2025-05-13 11:28 | Outpatient (BNVA) | payer OTHER, SELFPAY | PROVIDERS: PCP Nurse Practitioner Family; Visit Provider Internal Medicine Hypertension Specialist | DX: I10 Essential (primary) hypertension (principal); E87.6 Hypokalemia; R30.0 Dysuria; R60.9 Edema, unspecified; E78.5 Hyperlipidemia, unspecified; R10.10 Upper abdominal pain, unspecified; Z87.891 Personal history of nicotine dependence | CPT/HCPCS: 99212 ==

== ENCOUNTER 2025-05-26 09:33 | Outpatient (REF) | payer OTHER, SELFPAY ==
--- NOTE | ~2025-05-26 | XR_ITS ---
EXAMINATION: XR ABDOMEN KUB CLINICAL INDICATION: R10.9 - Unspecified abdominal pain COMPARISON: CT on December 20, 2023 TECHNIQUE: AP view of the abdomen. FINDINGS: Again seen are clips in the right upper quadrant from cholecystectomy. Again seen is metal related to ventral hernia repair mesh There is moderate stool throughout colon. The bowel gas pattern is similar to the tandem mill roller performed from the CT scan in 2023. XR/XR KUB IMPRESSION: Moderate stool. Stable bowel gas pattern. Electronically signed by: Devante Guevara MD 05/26/2025 11:37 AM EDT
[2025-05-26 11:11] LABS: MANUAL DIFF FLAG NO
[2025-05-26 11:58] LABS: Hematocrit 47.9 % (37.0-47.0); Hemoglobin 16.3 g/dl (12.0-16.0); Imm Gran Abs Auto 0.06 X10*3/uL (0.00-0.03); Imm Gran Pct Auto 0.5 % (0.0-0.4); Lymphocytes Absolute Auto 3.3 X10*3/uL (1.2-4.9); Mean Corpuscular HGB Conc 34.0 g/dl (31.0-35.0); Mean Corpuscular Hemoglobin 31.2 pg (27.0-33.0); Mean Corpuscular Volume 91.8 fL (80.0-98.0); NRBC Abs Auto 0.000 X10*3/uL (0.0-0.012); NRBC Pct Auto 0.0 /100WBC (0.0-0.2); Platelet Count 431 X10*3/uL (160-400); Red Blood Count 5.22 X10*6/uL (4.20-5.50); White Blood Count 12.9 X10*3/uL (4.8-10.8)
[2025-05-26 12:03] LABS: INTERNATIONAL NORM RATIO 0.9 (0.9-1.1); Prothrombin Time 9.9 SEC (10.9-12.4)
[2025-05-26 12:32] LABS: Alanine Aminotransferase 41 U/L (0-31); Albumin Level 5.3 g/dL (3.5-5.0); Alkaline Phosphatase 84 U/L (39-117); Anion Gap 13 (12-20); Aspartate Amino Transferase 32 U/L (5-31); Blood Urea Nitrogen 8 mg/dL (9-16); Calcium 9.8 mg/dL (8.4-10.2); Carbon Dioxide 24 mmol/L (22-29); Chloride 107 mmol/L (96-108); Estimated Glomerular Filt Rate > 60; Potassium 3.7 mmol/L (3.3-5.1); Sodium 140 mmol/L (135-145); Total Protein 8.2 g/dL (6.5-8.0)
[2025-05-26 12:43] LABS: Free T4 (Free Thyroxine) 1.16 ng/dL (0.71-1.85)
[2025-05-26 12:47] LABS: HBS Num1 0.24 mIU/mL (0-7.99); HBc Num1 0.05 S/CO (0.00-0.79); HBsAGNum1 0.50 S/CO (0.00-0.99); Hepatitis A Antibody IgM 0.38 Index (0-0.79); Hepatitis B Surface Antigen Negative (Negative); ~HepC Num1 0.05 S/CO (0.00-0.79); ~Hepatitis A Antibody IgM Nonreactive (Nonreactive); ~Hepatitis B Surface Antibody NONREACTIVE (Nonreactive); ~Hepatitis C Antibody Nonreactive (Nonreactive)
[2025-05-26 12:52] LABS: Ferritin 97 ng/mL (10-250); Thyroid Stimulating Hormone 0.83 uIU/mL (0.32-4.0)
[2025-05-26 13:05] LABS: Folate 16.1 ng/mL (> or = 4.0); Vitamin B12 412 pg/mL (200-900)
[2025-05-27 17:38] LABS: Immunoglobulin G 1054 mg/dL (600-1640)
[2025-05-28 22:29] LABS: Transglutaminase Ab IgG <1.0 U/mL
[2025-05-30 00:18] LABS: Liver Kidney Microsomal Ab <=20.0 U (<=20.0)
[2025-05-31 22:38] LABS: Soluble Liver Ag Autoantibody <20.1 U (0.0-20.0)
[2025-06-04 19:38] LABS: FIB-ALT 29 U/L (6-29); FIB-Alpha-2-Macroglobulin 200 mg/dL (106-279); FIB-Apolipoprotein A1 173 mg/dL (101-198); FIB-GGT 93 U/L (3-70); FIB-Haptoglobin 212 mg/dL (43-212); FIB-Total Bilirubin 0.3 mg/dL (0.2-1.2); Liver Fibrosis Score 0.14; Liver Fibrosis Stage F0; Nec Inflam Act Grade A0; Nec Inflam Act Score 0.11
== END 2025-05-26 09:34 | disposition home or self-care (01) ==
LOC: HO.LAB 09:33
PROVIDERS: Student in an Organized Health Care Education/Training Program; PCP Nurse Practitioner Family; Referring Provider Internal Medicine Hypertension Specialist; Visit Provider Internal Medicine Gastroenterology
DX: K75.81 Nonalcoholic steatohepatitis (NASH) (principal); K59.09 Other constipation; K52.839 Microscopic colitis, unspecified; E04.2 Nontoxic multinodular goiter; R74.8 Abnormal levels of other serum enzymes; R79.89 Other specified abnormal findings of blood chemistry; G89.29 Other chronic pain; R10.33 Periumbilical pain; R10.11 Right upper quadrant pain; R10.32 Left lower quadrant pain; T78.40XA Allergy, unspecified, initial encounter; Z85.850 Personal history of malignant neoplasm of thyroid; Z11.59 Encounter for screening for other viral diseases
CPT/HCPCS: 36415; 74018; 80053; 81596; 82607; 82728; 82746; 82784; 83520; 84207; 84425; 84439; 84443; 85025; 85610; 85652; 86015; 86140; 86364; 86376; 86381; 86704; 86706; 86709; 86803; 87340; 99212

== ENCOUNTER 2025-05-26 09:33 | Outpatient (AMB) | payer OTHER, SELFPAY ==
--- NOTE | 2025-05-26 09:38 | A.OFFVIS_ITS ---
Vital Signs 05/26/25 09:40 Height 5 ft 3 in Weight 143 lb 4.807 oz BMI 25.4 BP 143/81 H Blood Pressure Location Lt brachial Position Sitting Pulse 109 H Intake Visit Reasons: N/V f/u r/s Intake Note: Kita presents in the office as a follow up. C: states she has nausea and vomiting and states she has boh constipation and diarrhea. Pains in the RUQ and LLQ. Top Spotter Required: Yes Allergies Sulfa (Sulfonamide Antibiotics) (SULFA (SULFONAMIDE ANTIBIOTICS)) Allergy (Intermediate, Verified 05/26/25 09:41) HIVES Latex, Natural Rubber Allergy (Mild, Verified 05/26/25 09:41) Rash egg Allergy (Verified 05/26/25 09:41) Abdominal Pain strawberry Allergy (Verified 05/26/25 09:41) Abdominal Pain aspirin (ASPIRIN) Adverse Reaction (Intermediate, Verified 05/26/25 09:41) ABD PAIN morphine (MORPHINE) Adverse Reaction (Intermediate, Verified 05/26/25 09:41) Abdominal Pain almond Allergy (Severe, Uncoded 05/26/25 09:41) Stomack pain Lactose intollerance Allergy (Severe, Uncoded 05/26/25 09:41) Stomach pain, nausceau HPI HPI N/V f/u r/s: Details: 59 yr old f with asthma, fibromyalgia, HTN, constipation, hyperparathyroidism, hemithyroidectomy and headaches being seen for f/u RECAP: she has mild raised abn LFT, mild raised Sm musc ab, nml IgG level she had issues wt abdominal pain, chronic she had pyloroplasty with Mazzuco 03/27 she fetl really good for 2 months but then sx came back as they were before TESTS: EGD/colo 09/2022-- hiatal hernia, schatzki ring, polyps, and int hemorrhoids rept colo 5 yrs GES- v abnormal 60% --01/2023 upper gi series: large gerd with small hiatal hernia RAST- food allergies, neg INTERIM: whole abdomen hurts but more RUQ she has ongoing issues with regurgitation food can make pain worse she has constipation but helped by linaclotide she felt levsin made sx worse she has issues with passing urine---retention --one time she went 18 hrs without passing, EXAM: GENERAL: The patient is well developed and nontoxic. VITAL SIGNS:see workflow HEENT: Nonicteric sclerae, PERRLA, EOMI. Oropharynx clear. Moist mucous membranes. Conjunctivae appear well perfused. No thyroid mass. CHEST: Chest wall is nontender. HEART: Regular rate and rhythm without murmurs. LUNGS: Clear to auscultation bilaterally. ABDOMEN: Soft, positive bowel sounds, tender epigastric area and suprapubic area, no organomegaly.no flank tenderness SKIN: No rash, no excessive bruising, petechiae, or purpura. NEUROLOGIC: Cranial nerves II-XII intact without motor/sensory deficit. a/P: 1/ Epigastric pain and tender suprapubic area, ?recurrence of gastroparesis, myofascial pain, fibromyalgia, also constipation hx, may be IBS-C or functional pain PLAN: 1/ check labs 2/ UA 3/ trial of bentyl, intolerant of levsin 4/ US liver --may need liver bx 5/ KUB 6/ may need repeat EGD [facility] Medical History Low vitamin B12 level Smoker Numbness Wheezing Chronic radicular pain of lower back Foot pain, bilateral Joint pain in both hands Breast pain Hypokalemia Breast pain, right Allergies Migraines Renal calculi Bipolar disorder Chronic abdominal pain Osteoporosis Hyperparathyroidism Multinodular thyroid Depression Fibromyalgia Thrombocytosis Leukocytosis GERD (gastroesophageal reflux disease) Thyroid cancer PONV (postoperative nausea and vomiting) Elevated cholesterol Difficulty swallowing Vitamin D deficiency Anxiety Pulmonary nodule Asthma HTN (hypertension) Surgical History H/O pyloroplasty (03/27/24) History of excision of mass Hx of thyroidectomy H/O esophagogastroduodenoscopy H/O colonoscopy History of bilateral oophorectomy Hx of cholecystectomy S/P excision of lipoma History of total abdominal hysterectomy Hx of appendectomy Family History Father Diabetes mellitus Skin cancer Prostate cancer Mother HTN (hypertension) High cholesterol Mental health disorder Maternal Grandfather Myocardial infarction Maternal Grandmother No problems noted. Paternal Grandfather No problems noted. Paternal Grandmother Breast cancer Sister Mental health disorder Social History Household Members: None Housing: Apartment Are you a primary health care legal assistant to a significant other at home: No Do you presently have visiting nurse or other home services: No Alcohol intake: never Patient Tobacco Use Status: Current everyday Tobacco user Tobacco use type: Cigarette Cigarettes Per Day: 5 Years Smoked: 20 e-Cigarette/Vaping Use: Never Used Second Hand Smoke Exposure: No Advance Directives Date on File: 10/05/16 service: No Current occupational status: disabled Sexual orientation: Straight/Heterosexual Gender identity: Female Cognitive needs: No Hearing needs: No Vision needs: Yes Physical Exam Vital Signs: Last Vital Signs Pulse 109 H 05/26/25 09:40 BP 143/81 H 05/26/25 09:40 BMI result Body Mass Index 25.4 Assessment & Plan Assessment & Plan (1) Right sided abdominal pain: Code(s): R10.9 - Unspecified abdominal pain Category: Medical Plan: as above (2) Elevated liver enzymes: Comment: > 25 daily meds- Liver enzymes elevated, ROSE Code(s): R74.8 - Abnormal levels of other serum enzymes Category: Medical Plan: as above (3) Allergies: Code(s): T78.40XA - Allergy, unspecified, initial encounter Category: Medical Plan: as above Orders: Orders XR KUB Today K59.09 - Other constipation, R10.9 - Unspecified abdominal pain Complete Blood Count Auto Diff Today R74.8 - Abnormal levels of other serum enzymes Comprehensive Met. Panel Today K75.81 - Nonalcoholic steatohepatitis (ARAIZA), R7 4.8 - Abnormal levels of other serum enzymes Prothrombin Time INR Today R74.8 - Abnormal levels of other serum enzymes Soluble Liver Ag Autoantibody Today R74.8 - Abnormal levels of other serum enzymes Smooth Muscle Antibody Today R74.8 - Abnormal levels of other serum enzymes Immunoglobulin G Today K52.839 - Microscopic colitis, unspecified, R74.8 - Abnormal levels of other serum enzymes Transglutaminase Ab IgG Today G89.29 - Other chronic pain, R10.33 - Periu mbilical pain, R74.8 - Abnormal levels of other serum enzymes UA CC w/rflx Micro + Cult Today R30.0 - Dysuria, R74.8 - Abnormal levels of other serum enzymes Lactoferrin, Fecal, Quant. Today K51.50 - Left sided colitis without complications, R74.8 - Abnormal levels of other serum enzymes Vitamin B12 and Folate Today R74.8 - Abnormal levels of other serum enzymes Mitochondrial Antibody Today R74.8 - Abnormal levels of other serum enzymes, R79.89 - Other specified abnormal findings of blood chemistry US abdomen comp w elastography Today R10.9 - Unspecified abdominal pain, R74.8 - Abnormal levels of other serum enzymes C Reactive Protein Today R74.8 - Abnormal levels of other serum enzymes Hepatitis A,B,C Profile Today R74.8 - Abnormal levels of other serum enzymes, Z11.59 - Encounter for screening for other viral diseases Liver Fibrosis Pnl Today R74.8 - Abnormal levels of other serum enzymes Liver Kidney Microsomal Ab Today R74.8 - Abnormal levels of other serum enzymes Ferritin Today R74.8 - Abnormal levels of other serum enzymes Vitamin B6 Today R74.8 - Abnormal levels of other serum enzymes Vitamin B1 Today R74.8 - Abnormal levels of other serum enzymes Erythrocyte Sedimentation Rate Today R74.8 - Abnormal levels of other serum enzymes Pancreatic Elastase-1 Today R74.8 - Abnormal levels of other serum enzymes Fecal Fat Qualitative Today T78.40XA - Allergy, unspecified, initial encounter Medications: New dicyclomine 10 mg PO BID 14 caps 0RF Coding Level of Care Code Est Pt Level 4 (30919) Diagnoses Right sided abdominal pain R10.9 Elevated liver enzymes R74.8 Allergies T78.40XA
[2025-05-26 09:40] VITALS: BP 143/81; PULSE 109; BMI 25.4
--- OUTSIDE RECORDS SUMMARY | 2025-05-26 11:15 | XMS_ITS | Clinical Summary ---
Author Organization [facility] Address [address] [place] [address] Phone Care Team Providers Care Mattress Renovator Name Role Phone Raymundo Mcdonald NP Primary [...] Not on file Insurance [employer]CO [place] [address] [place] [address] [place] [address] [place] [address] [place] [address] [place] [address] ACO Care Teams Mattress Renovator Relationship Specialty Start Date End Date Raymundo Mcdonald NP [facility] [place] [address] PCP - General Nurse Practitioner 08/03/23 Additional Source Comments The information contained in this document represents components of the legal health record. It is not the complete legal health record.[facility]
--- OUTSIDE RECORDS SUMMARY | 2025-05-26 11:15 | XMS_ITS | Clinical Summary ---
Author Organization [employer] Address [address] [facility] 7t [place] [address] Care Team Providers Care Tableau Report Developer Name Role Phone Unavailable Primary Care Provider [...] Upcoming Encounters Date Type Department Care Team ([facility] st Contact Info) Description 06/09/2025 1:30 PM EDT Office Visit [facility] OPTOMETRY [address] [place] [address] Pily Perkins, OD [address] [facility] [address] Health Maintenance Due Date Last Done Comments [...] patient's age to complete this topic Insurance [facility]
--- OUTSIDE RECORDS SUMMARY | 2025-05-26 11:15 | XMS_ITS | Encounter Summary ---
Author Organization [facility], Address [address] [place] [address] Phone Care Team Providers Care Vp Business Development Name Role Phone Raymundo Mcdonald NP Primary Care Provider [phone] Encounter Details Date Type Department Care Team (Late st Contact Info) Description 10/10/2023 Documentation Only [facility], [address] [place] [address] Minna [place], [place] [address] [place] [address] Social History Tobacco Use Types [...] on filedocumented in this encounter Care Teams Vp Business Development Relationship Specialty Start Date End Date Raymundo Mcdonald NP [address] [place] [address] PCP - General Nurse Practitioner 10/10/23 documented as of this encounter
--- OUTSIDE RECORDS SUMMARY | 2025-05-26 11:15 | XMS_ITS | Clinical Summary ---
Author Organization [facility], Address [address] [place] [address] [place] [address] Phone Care Team Providers Care Tearoom Hostess Name Role Phone Raymundo Mcdonald NP Primary Care Provider [phone] Allergies Active Allergy Reactions Criticality Noted Date [...] PCV) 017 Influenza Vaccine (#1) 2025 Insurance [facility] Medicaid Care Teams Tearoom Hostess Relationship Specialty Start Date End Date Raymundo Mcdonald NP [address] [place] [address] PCP - General Nurse Practitioner 10/10/23
--- OUTSIDE RECORDS SUMMARY | 2025-05-26 11:15 | XMS_ITS | Clinical Summary ---
Author Organization [facility] Address [address] [place] [address] Care Team Providers Care Livestock Agent Name Role Phone Cr Madera MD Primary Care Provider [phone] Surgical History Surgery Date Site/Laterality Comments VENTRAL HERNIA REPAIR PROCEDURE: HISTORICAL VTRL WALL HERNIA RE APPENDECTOMY PROCEDURE: HISTORICAL APPENDECTOMY; COMMENT: w/ incisional hernia repair HYSTERECTOMY PROCEDURE: HISTORICAL TOTAL HYSTERECTOMY WITH BSO HERNIA REPAIR PROCEDURE: [place] REPAIR FIRST ABDOMINAL WALL HERNIA Medical History [...] age to complete this topic Care Teams Livestock Agent Relationship Specialty Start Date End Date Cr Madera MD [address] [place] [phone] PCP - General Internal Medicine 07/05/17
== END 2025-05-26 10:17 | disposition home or self-care (01) ==
LOC: HO.HGI 09:33
PROVIDERS: PCP Nurse Practitioner Family; Visit Provider Internal Medicine Gastroenterology
DX: R10.9 Unspecified abdominal pain (principal); R74.8 Abnormal levels of other serum enzymes; T78.40XA Allergy, unspecified, initial encounter
CPT/HCPCS: 99214

== ENCOUNTER → 2025-05-26 11:10 | Outpatient (BNV) | payer OTHER, SELFPAY | PROVIDERS: PCP Nurse Practitioner Family; Referring Provider Internal Medicine Hypertension Specialist; Visit Provider Radiology Diagnostic Radiology | DX: R10.9 Unspecified abdominal pain (principal) | CPT/HCPCS: 74018 ==

== ENCOUNTER 2025-05-27 22:00 | Outpatient (REF) | payer OTHER, SELFPAY ==
[2025-05-29 13:47] LABS: Appearance Urine Clear; Glucose Urine UA Negative (Negative); PH 6.0 (5.0-9.0); Specific Gravity - Urine 1.010 (1.005-1.025); UMIC TRIGGER UACC YES
[2025-05-29 14:03] LABS: UACC Culture Trigger YES
== END 2025-05-27 22:01 | disposition home or self-care (01) ==
LOC: HO.LNP 22:00
PROVIDERS: Visit Provider Internal Medicine Gastroenterology
DX: R30.0 Dysuria (principal); R74.8 Abnormal levels of other serum enzymes
CPT/HCPCS: 81001; 87086

== ENCOUNTER 2025-05-29 06:33 | Outpatient (REF) | payer OTHER, SELFPAY ==
--- NOTE | ~2025-05-29 | FL_ITS ---
EXAMINATION: FL GUIDANCE ONLY HISTORY: M54.16 - Radiculopathy, lumbar region COMPARISON: None available. TECHNIQUE: Fluoroscopy time: 19 seconds. Cumulative Dose: 4.00 mGy. DAP: 45.11 uGym2 Images: 4. FINDINGS: Fluoroscopic spot films of the lumbar spine demonstrate a needle and contrast material in the region of the left L5 pedicle. FL/FL guidance in treatment room IMPRESSION: Fluoroscopy during procedure. Please see procedure report for additional information. Electronically signed by: Deuce Pierre MD 05/29/2025 02:34 PM EDT
== END 2025-05-29 06:34 | disposition home or self-care (01) ==
LOC: CF 06:33
PROVIDERS: Visit Provider Internal Medicine
DX: M54.16 Radiculopathy, lumbar region (principal)
CPT/HCPCS: 64483; J1100; J2003; J2795; Q9967

== ENCOUNTER 2025-05-29 12:41 | Outpatient (AMB) | payer OTHER, SELFPAY ==
[2025-05-29 12:49] VITALS: BP 117/70; PULSE 106; RESP 16; O2SAT 96; BMI 25.3
--- NOTE | 2025-05-29 12:49 | MHC.OFFVIS ---
Vital Signs 05/29/25 12:49 05/29/25 13:21 Height 5 ft 3 in Weight 143 lb BMI 25.3 BP 117/70 122/67 Blood Pressure Location Lt brachial Lt brachial Position Sitting Sitting Respiration 16 16 Pulse 106 H 93 Pulse Source Pulse Oximeter Pulse Oximeter Pulse Oximetry (%) 96 98 Oxygen Delivery Method Room Air Room Air Intake Visit Reasons: Right L5 Dx SNRB Allergies Sulfa (Sulfonamide Antibiotics) (SULFA (SULFONAMIDE ANTIBIOTICS)) Allergy (Intermediate, Verified 05/26/25 09:41) HIVES Latex, Natural Rubber Allergy (Mild, Verified 05/26/25 09:41) Rash egg Allergy (Verified 05/26/25 09:41) Abdominal Pain strawberry Allergy (Verified 05/26/25 09:41) Abdominal Pain aspirin (ASPIRIN) Adverse Reaction (Intermediate, Verified 05/26/25 09:41) ABD PAIN morphine (MORPHINE) Adverse Reaction (Intermediate, Verified 05/26/25 09:41) Abdominal Pain almond Allergy (Severe, Uncoded 05/26/25 09:41) Stomack pain Lactose intollerance Allergy (Severe, Uncoded 05/26/25 09:41) Stomach pain, nausceau HPI HPI Right L5 Dx SNRB: Details: Patient presents for scheduled procedure. Denies any recent cough, cold, infection, fever or other significant changes in medical history since last office visit. [facility] Medical History Low vitamin B12 level Smoker Numbness Wheezing Chronic radicular pain of lower back Foot pain, bilateral Joint pain in both hands Breast pain Hypokalemia Breast pain, right Allergies Migraines Renal calculi Bipolar disorder Chronic abdominal pain Osteoporosis Hyperparathyroidism Multinodular thyroid Depression Fibromyalgia Thrombocytosis Leukocytosis GERD (gastroesophageal reflux disease) Thyroid cancer PONV (postoperative nausea and vomiting) Elevated cholesterol Difficulty swallowing Vitamin D deficiency Anxiety Pulmonary nodule Asthma HTN (hypertension) Surgical History H/O pyloroplasty (03/27/24) History of excision of mass Hx of thyroidectomy H/O esophagogastroduodenoscopy H/O colonoscopy History of bilateral oophorectomy Hx of cholecystectomy S/P excision of lipoma History of total abdominal hysterectomy Hx of appendectomy Family History Father Diabetes mellitus Skin cancer Prostate cancer Mother HTN (hypertension) High cholesterol Mental health disorder Maternal Grandfather Myocardial infarction Maternal Grandmother No problems noted. Paternal Grandfather No problems noted. Paternal Grandmother Breast cancer Sister Mental health disorder Social History Household Members: None Housing: Apartment Are you a primary home care chaplain to a significant other at home: No Do you presently have visiting nurse or other home services: No Alcohol intake: never Patient Tobacco Use Status: Current everyday Tobacco user Tobacco use type: Cigarette Cigarettes Per Day: 5 Years Smoked: 20 e-Cigarette/Vaping Use: Never Used Second Hand Smoke Exposure: No Advance Directives Date on File: 10/05/16 service: No Current occupational status: disabled Sexual orientation: Straight/Heterosexual Gender identity: Female Cognitive needs: No Hearing needs: No Vision needs: Yes Physical Exam Vital Signs: Last Vital Signs Pulse 93 05/29/25 13:21 Resp 16 05/29/25 13:21 BP 122/67 05/29/25 13:21 Pulse Ox 98 05/29/25 13:21 Oxygen Delivery Method Room Air 05/29/25 13:21 BMI result Body Mass Index 25.3 Office Procedures Details: Selective nerve root block, right L5 After obtaining written consent, pre-procedure blood pressure and heart rate were stable and recorded in the nursing record. The patient was placed in the prone position on the fluoroscopy table. The lumbosacral area was prepped with chloraprep, allowed to dry and draped in sterile fashion. Using fluoroscopy, the skin overlying our target was anesthetized with 0.5% lidocaine. A 22 gauge 3.5 inch spinal needle was advanced to the safe triangle in the upper pole of the right L5 foramen. No paresthesias were elicited with needle placement and aspiration was negative for blood and CSF. Correct needle position was confirmed with approximately 1 ml contrast dye (Omnipaque 180 mg/ml) injected under real-time fluoroscopy. No evidence of vascular or intrathecal uptake was seen and there was both epidural and peripheral spread of the contrast agent. 2 mL ml containing 0.75% lidocaine and 0.25% ropivacaine was slowly injected. The needle was flushed and removed. The skin was cleansed and a sterile bandages were applied. The patient tolerated the procedure well and no complications were encountered. Following the procedure the patient's vital signs were stable. The patient was discharged home in good condition with post-procedural instructions. Time Out: Immediately prior to the procedure, the following was verbally confirmed that there is a signed consent form and that the correct patient, planned procedure, site and side are consistent with documentation and that necessary equipment and/or blood products are available prior to the start of the case. Complications: none EBL: <5 cc 63198 - Lumbar/Sacral Procedure code (CPT) selection complete Assessment & Plan Assessment & Plan (1) Lumbar radiculopathy: Code(s): M54.16 - Radiculopathy, lumbar region Category: Medical Plan Patient is status post right L5 selective nerve root block. Patient tolerated procedure well and was discharged home in stable condition with discharge instructions. All questions were answered. We will follow-up via telephone or in clinic to assess response to therapy. A follow-up appointment was made during today's visit. Orders: Orders AMB Transforaminal Epidural Steroid Injection Today Alfonso Freitas MD M54.16 - Radiculopathy, lumbar region FL guidance in treatment room Today Wilda Lobo APRN, WAITER/WAITRESS [place] M54.16 - Radiculopathy, lumbar region Coding Level of Care Code Procedure Only Diagnoses Lumbar radiculopathy M54.16 CPT Codes Transforaminal Epidural Steroid Inj - TESI 3: 32406 - Lumbar/Sacral ([id number])
[2025-05-29 13:21] VITALS: BP 122/67; PULSE 93; RESP 16; O2SAT 98
--- OUTSIDE RECORDS SUMMARY | 2025-05-29 17:30 | XMS_ITS | Encounter Summary ---
Author Organization [facility], Address [address] [place] [address] Phone Care Team Providers Care Golf Cart Maker Name Role Phone Raymundo Mcdonald NP Primary Care Provider [phone] Encounter Details Date Type Department Care Team (Late st Contact Info) Description 10/10/2023 Documentation Only [facility], [address] [place] [address] [place], [place] [address] [place] [address] Social History Tobacco Use Types [...] on filedocumented in this encounter Care Teams Golf Cart Maker Relationship Specialty Start Date End Date Raymundo Mcdonald NP [address] [place] [address] PCP - General Nurse Practitioner 10/10/23 documented as of this encounter
--- OUTSIDE RECORDS SUMMARY | 2025-05-29 17:30 | XMS_ITS | Clinical Summary ---
Author Organization [facility] Address [address] [place] [address] Phone Care Team Providers Care Ditcher Operator Name Role Phone Raymundo Mcdonald NP [...] Not on file Insurance [place]CO [place] [address] [place] [address] [place] [address] [place] [address] [place] [address] [place] [address] ACO Care Teams Ditcher Operator Relationship Specialty Start Date End Date Raymundo Mcdonald NP [facility] [place] [address] PCP - General Nurse Practitioner 08/03/23 Additional Source Comments The information contained in this document represents components of the legal health record. It is not the complete legal health record.[facility]
--- OUTSIDE RECORDS SUMMARY | 2025-05-29 17:30 | XMS_ITS | Clinical Summary ---
Author Organization [employer] Address [address] [facility] 7[address] [place] [address] Care Team Providers Care Remotely Piloted Vehicle Controller Name Role Phone Unavailable Primary Care Provider [...] ([facility] st Contact Info) Description 06/09/2025 1:30 PM EDT Office Visit [facility] [address] [place] [address] Pily Perkins, OD [address] [place] [address] Health Maintenance Due Date Last Done Comments [...] age to complete this topic Insurance [facility] ACO
--- OUTSIDE RECORDS SUMMARY | 2025-05-29 17:30 | XMS_ITS | Clinical Summary ---
Author Organization [facility], Address [address] [place] [address] [place] [address] Phone Care Team Providers Care Outside Installer Apprentice Name Role Phone Raymundo Mcdonald NP Primary Care Provider [phone] Allergies Active Allergy Reactions Criticality Noted Date [...] PCV) 017 Influenza Vaccine (#1) 2025 Insurance [facility] Medicaid Care Teams Outside Installer Apprentice Relationship Specialty Start Date End Date Raymundo Mcdonald NP [address] [place] [address] PCP - General Nurse Practitioner 10/10/23
== END 2025-05-29 13:21 | disposition home or self-care (01) ==
LOC: HO.PMCPRC 12:41
PROVIDERS: PCP Nurse Practitioner Family; Visit Provider Internal Medicine
DX: M54.16 Radiculopathy, lumbar region (principal)
CPT/HCPCS: 64483

== ENCOUNTER 2025-05-29 13:23 | Outpatient (REF) | payer OTHER, SELFPAY ==
--- OUTSIDE RECORDS SUMMARY | 2025-05-29 17:59 | XMS_ITS | Clinical Summary ---
Author Organization [facility] Address [address] [place] [address] Care Team Providers Care Nuclear Medicine Specialist Name Role Phone Cr Madera MD Primary Care Provider [phone] Surgical History Surgery Date Site/Laterality Comments VENTRAL HERNIA REPAIR PROCEDURE: HISTORICAL VTRL WALL HERNIA RE APPENDECTOMY PROCEDURE: HISTORICAL APPENDECTOMY; COMMENT: w/ incisional hernia repair HYSTERECTOMY PROCEDURE: HISTORICAL TOTAL HYSTERECTOMY WITH BSO HERNIA REPAIR PROCEDURE: OR REPAIR FIRST ABDOMINAL WALL HERNIA Medical History [...] age to complete this topic Care Teams Nuclear Medicine Specialist Relationship Specialty Start Date End Date Cr Madera MD [address] [place] [id number] PCP - General Internal Medicine 07/05/17
[2025-05-30 07:27] LABS: Appearance Urine Cloudy; Glucose Urine UA Negative (Negative); PH 6.0 (5.0-9.0); Specific Gravity - Urine 1.010 (1.005-1.025); UMIC TRIGGER UACC YES
[2025-05-30 07:38] LABS: UACC Culture Trigger YES
[2025-06-05 03:34] LABS: Lactoferrin, Fecal, Quant. <6.25 mcg/mL (<7.25)
== END 2025-05-29 13:24 | disposition home or self-care (01) ==
LOC: HO.LNP 13:23
PROVIDERS: Internal Medicine Hypertension Specialist; Visit Provider Internal Medicine Gastroenterology
DX: R74.8 Abnormal levels of other serum enzymes (principal); K51.50 Left sided colitis without complications; T78.40XA Allergy, unspecified, initial encounter
CPT/HCPCS: 81001; 82656; 82705; 83631; 87086

== ENCOUNTER 2025-06-05 09:00 | Outpatient (AMB) | payer OTHER, SELFPAY ==
[2025-06-05 09:10] VITALS: BP 131/65; PULSE 99; RESP 18; O2SAT 97
--- NOTE | 2025-06-05 09:10 | A.OFFVIS_ITS ---
Vital Signs 06/05/25 09:10 Weight 150 lb BP 131/65 Blood Pressure Location Lt brachial Position Sitting Respiration 18 Pulse 99 Pulse Source Pulse Oximeter Pulse Oximetry (%) 97 Oxygen Delivery Method Room Air Intake Visit Reasons: s/p right L5 Dx SNRB Allergies Sulfa (Sulfonamide Antibiotics) (SULFA (SULFONAMIDE ANTIBIOTICS)) Allergy (Intermediate, Verified 06/05/25 09:12) HIVES Latex, Natural Rubber Allergy (Mild, Verified 06/05/25 09:12) Rash egg Allergy (Verified 06/05/25 09:12) Abdominal Pain strawberry Allergy (Verified 06/05/25 09:12) Abdominal Pain aspirin (ASPIRIN) Adverse Reaction (Intermediate, Verified 06/05/25 09:12) ABD PAIN morphine (MORPHINE) Adverse Reaction (Intermediate, Verified 06/05/25 09:12) Abdominal Pain almond Allergy (Severe, Uncoded 05/26/25 09:41) Stomack pain Lactose intollerance Allergy (Severe, Uncoded 05/26/25 09:41) Stomach pain, nausceau HPI Comments Details: PRIOR: The patient is a 59-year-old female presenting with numbness in her legs. She reports an acute episode, occurring around or Monday last week, resulted in the urgent care visit due to significant concern with inability to stand and weakness with significant low back pain. She was confined to her bathroom for approximately 2 hours due to her inability to stand during the incident. This presentation is different from her typical chronic back pain, which she notes is normally localized on the left side in the L5-S1 distribution and sometimes involving the right side as well as sacroiliac joint pain. She recently missed her bilateral diagnostic SIJ injections and is rescheduled for 12/05/24. Patient denies previous lumbar spine MRI and denies any recent MRI order at Urgent clinic with development of acute leg numbness and weakness, gait impairment to assess potential spinal or neurological involvement. - Onset and Timing: Chronic back pain and fibromyalgia; new numbness in legs occurring recently - Quality and Character: Numbness preventing prolonged standing, throbbing, shooting, radiating - Location: Left L5-S1 distribution, sometimes involving right side - Areas of Radiation: Back to front of left leg with numbness dorsal aspect of left foot - Exacerbating Factors: Movements, bending, lifting, walking, prolonged standing - Relieving Factors: None, minimal relief with NSAIDs, gabapentin, heat, rest - Interference: Prevents standing or walking, impacts mobility and ADLs - Affect: Patient expressed fear and worry due to new numbness affecting her daily life - Analgesia: Current medications include gabapentin, clonazepam, diclofenac sodium, and amitriptyline - Adverse Effects: History of liver cyst which can influence tizanidine usage - Activities of Daily Living: Numbness severely impacts ability to stand and walk - Aberrant Drug-Related Behaviors: None reported PRIOR: Patient presents today for follow up after physical therapy. Patient reports she was able to complete 4 weeks of PT without significant improvement in her functioning, mobility, or sleep. She continues to endorse neck, mid and lower back pain with radiation into her buttocks and lateral hips. She ambulates with cane. Recent cervical and lumbar spine imaging are noted below. Patient is interested to proceed with diagnostic sacroiliac joint injections as initial steps. Denies any recent cough, cold, infection, fever or any significant changes in medical history since last office visit. PRIOR: Patient is a 59 years old [place] speaking female with history of fibromyalgia, polyarthralgia, chronic pain syndrome, osteoporosis (Evenity, repeat bone scan 2024), thyroid cancer s/p thyroidectomy, Bipolar disorder, depression, presents today for initial evaluation of low back pain and widespread body pain due to fibromyalgia. tie binder it was incorporated during today's visit. Denies any recent trauma, injury or falls. History of fall in June 2023 due to left knee pain related to instability. Patient was previously seen at [facility] and completed formal course of physical therapy and underwent multiple injections 2-3 years ago with mixed results. She was referred to our office by her PCP for lumbar radiculopathy and was ordered lumbar spine MRI which was denied by her insurance. Back pain is axial and radiates to upper and lower extremities per patient. She also reports chronic right upper back pain with shooting pain down into her lower back. Pain is present with activity and rest and flares up with any movement, stress or weather changes. Pain is constant and is rated at 10/10. Patient reports tramadol and gabapentin allow her to be less symptomatic and more functional. Reports previous courses of PT for shoulder and knee pain were ineffective but willing to undergo PT for back and neck pain. Denies any fever or chills, abdominal or groin pain, weakness, footdrop, bladder or bowel dysfunction or saddle anesthesia. Patient follows with Endocrinology and Rheumatology services. Location: Lower back, right upper back, widespread body pain Duration: Chronic pain for couple years Characteristics of symptom or complaint: Aching, numbness, tingling, spasming, shooting, tiring, radiating, heavy, Aggravating or associated factors: Prolonged walking or sitting, cold weather, movements, ADLs, stress Relieving factors: Tramadol, gabapentin, heat therapy, activity modifications, rest Treatment: PT, injections at [facility] Medical History Low vitamin B12 level Smoker Numbness Wheezing Chronic radicular pain of lower back Foot pain, bilateral Joint pain in both hands Breast pain Hypokalemia Breast pain, right Allergies Migraines Renal calculi Bipolar disorder Chronic abdominal pain Osteoporosis Hyperparathyroidism Multinodular thyroid Depression Fibromyalgia Thrombocytosis Leukocytosis GERD (gastroesophageal reflux disease) Thyroid cancer PONV (postoperative nausea and vomiting) Elevated cholesterol Difficulty swallowing Vitamin D deficiency Anxiety Pulmonary nodule Asthma HTN (hypertension) Surgical History H/O pyloroplasty (03/27/24) History of excision of mass Hx of thyroidectomy H/O esophagogastroduodenoscopy H/O colonoscopy History of bilateral oophorectomy Hx of cholecystectomy S/P excision of lipoma History of total abdominal hysterectomy Hx of appendectomy Family History Father Diabetes mellitus Skin cancer Prostate cancer Mother HTN (hypertension) High cholesterol Mental health disorder Maternal Grandfather Myocardial infarction Maternal Grandmother No problems noted. Paternal Grandfather No problems noted. Paternal Grandmother Breast cancer Sister Mental health disorder Social History Household Members: None Housing: Apartment Are you a primary medical care evaluation specialist to a significant other at home: No Do you presently have visiting nurse or other home services: No Alcohol intake: never Patient Tobacco Use Status: Current everyday Tobacco user Tobacco use type: Cigarette Cigarettes Per Day: 5 Years Smoked: 20 e-Cigarette/Vaping Use: Never Used Second Hand Smoke Exposure: No Advance Directives Date on File: 10/05/16 service: No Current occupational status: disabled Sexual orientation: Straight/Heterosexual Gender identity: Female Cognitive needs: No Hearing needs: No Vision needs: Yes Review of Systems Const All systems reviewed & are unremarkable except as noted in HPI and below Physical Exam Vital Signs: Last Vital Signs Pulse 99 06/05/25 09:10 Resp 18 06/05/25 09:10 BP 131/65 06/05/25 09:10 Pulse Ox 97 06/05/25 09:10 Oxygen Delivery Method Room Air 06/05/25 09:10 Results Reviewed Results Reviewed: XR LUMBAR SPINE 08/05/25 CLINICAL INFORMATION: Radiculopathy, lumbar region M54.16. COMPARISON: None available. TECHNIQUE: 5 views of lumbar spine. FINDINGS: Normal vertebral body alignment. The lumbar lordosis is maintained. No acute fracture or subluxation. No loss of vertebral body height or intervertebral disc height. Tiny anterior endplate osteophytes at T11 through L1. No concerning lytic or blastic osseous lesion. Right upper quadrant surgical clips. Surgical coils overlying the anterior pelvic wall. No abnormal soft tissue calcification. IMPRESSION: Minimal degenerative disc disease at T11 through L1. XR CERVICAL SPINE 08/05/24 CLINICAL INFORMATION: Age-related osteoporosis without current pathological fracture M81.0. COMPARISON: XR Cervical spine without flexion/extension 08/16/2022 TECHNIQUE: 6 views of the cervical spine, inclusive of flexion and extension views, were obtained. FINDINGS: The vertebral alignment is normal. No intrinsic bony abnormality. No fracture or subluxation. Degenerative changes with disc space narrowing and osteophyte formation is seen at C5/6 and C6/7. Posterior facet joints appear well-maintained. No significant neural foraminal osseous encroachment. Surgical clips are seen in the paratracheal soft tissues The surrounding prevertebral soft tissues are otherwise unremarkable. IMPRESSION: Degenerative disc disease at C5/6 and C6/7. XR DEXA appendicular skeleton 08/12/24 IMPRESSION: 1. DIAGNOSIS: Osteoporosis based on the lowest T-score value of -3.5 in the lumbar spine applying World Health Organization criteria. MR LUMBAR SPINE WITHOUT CONTRAST 12/04/24 FINDINGS: Last rib-bearing vertebra labeled T12. No bone marrow STIR signal abnormality. Bone marrow inhomogeneity throughout the axial skeleton and bony pelvis. Disc desiccation, L5-S1 and to a lesser extent L4-5. There is normal alignment. The conus medullaris ends at pedicle of L1 with normal signal. T12-L1: No disc herniation. No neuroforamina stenosis. L1-2: No disc herniation. No neuroforamina stenosis. L2-3: Broad-based disc bulging. Facet joint hypertrophy. No compression upon neural elements. L3-4: Broad-based disc bulging. Facet joint hypertrophy. No compression upon neural elements. L4-5: Broad-based disc bulging. Facet joint and ligamentum flavum hypertrophy. Reduced AP diameter of the thecal sac and the neural foramina. No compression upon neural elements. L5-S1: There is a right foraminal broad-based disc herniation abutting the right S1 nerve root. Facet joint hypertrophy. Right neuroforamina narrowing. No prevertebral compartment hematoma, mass or fluid collection. Hyperintense T2/cystic lesion in the left kidney. IMPRESSION: Right foraminal broad-based disc herniation L5-S1 abutting the right S1 nerve root on its lateral recess and likely encroaching right L5. Spondylosis at L4-5 without compression upon neural elements. Calcium metabolic disorder/osteopenia versus osteoporosis. Assessment & Plan Assessment & Plan (1) Osteoporosis: Code(s): M81.0 - Age-related osteoporosis without current pathological fracture Category: Medical (2) Spondylosis of lumbar region without myelopathy or radiculopathy: Code(s): M47.816 - Spondylosis without myelopathy or radiculopathy, lumbar region Category: Medical (3) Sacroiliitis: Code(s): M46.1 - Sacroiliitis, not elsewhere classified Category: Medical (4) Somatic dysfunction of both sacroiliac joints: Code(s): M99.04 - Segmental and somatic dysfunction of sacral region Category: Medical Plan Kita is 60 years old female who presents in my office with complains on pain in lower back after diagnostic transforaminal right epidural steroid injection performed by Dr. Freitas. She presents today with her daughter who helped us to discuss and maintain this conversation in [place]. She reports no improvement after the procedure. She reports that pain was aggravated by the procedure. Before that she had diagnostic sacroiliac joint injection which did not help her pain at all. Her pain started long time ago. According to her she is suffering from rheumatoid arthritis. She has sensation of the right lower extremity giving up under her. She has pain in bilateral knees. On physical exam patient is able to stand on bilateral tiptoes but has difficulty standing on bilateral heels. The SLR is positive on the right. Reflexes are symmetrical and equal bilaterally Achilles as well as patellar reflex. Herrera test is positive on the right. Pelvic compression test and pelvic distraction tests are positive bilaterally. Gaenslen test is positive bilaterally. Valsalva maneuver aggravate her pain. On the MRI most prominent features are related to L4-5 spondylosis and right-sided foraminal stenosis L5-S1 which was addressed by selective nerve block as above with no effect. After examining this patient my impression is that she is suffering from spondylosis of lumbar spine as well as sacroiliitis. She was examined by principal embedded software engineer in the past and found to have fibromyalgia. She was treated by Dr. Valdes, the negative turner for osteoporosis. I offered her to perform diagnostic medial branch block bilateral L2-L3 L4 bilateral in the attempt to alleviate her pain. Patient agreed to go for the procedure. Patient Instructions: I here by testify that I spent 30 minutes in conversation with this patient as well as examining her prior records and prior diagnostic studies as well as planning her care, organizing this note. Coding Level of Care Code Est Pt Level 4 (16946) Diagnoses Osteoporosis M81.0 Spondylosis of lumbar region without myelopathy or radiculopathy M47.816 Sacroiliitis M46.1 Somatic dysfunction of both sacroiliac joints M99.04
--- OUTSIDE RECORDS SUMMARY | 2025-06-05 09:44 | XMS_ITS | Encounter Summary ---
Author Organization [facility], Address [address] [place] [address] Phone Care Team Providers Care Er Manager Name Role Phone Raymundo Mcdonald NP Primary Care Provider [phone] Encounter Details Date Type Department Care Team (Late st Contact Info) Description 10/10/2023 Documentation Only [facility], [address] [place] [address] [place], [place] [address] [place] [address] Social History Tobacco Use Types [...] on filedocumented in this encounter Care Teams Er Manager Relationship Specialty Start Date End Date Raymundo Mcdonald NP [address] [place] [address] PCP - General Nurse Practitioner 10/10/23 documented as of this encounter
--- OUTSIDE RECORDS SUMMARY | 2025-06-05 09:44 | XMS_ITS | Clinical Summary ---
Author Organization [facility], Address [address] [place] [address] [place] [address] Phone Care Team Providers Care Major Account Representative Name Role Phone Raymundo Mcdonald NP Primary Care Provider [phone] Allergies Active Allergy Reactions Criticality Noted Date [...] PCV) 017 Influenza Vaccine (#1) 2025 Insurance [facility] Medicaid Care Teams Major Account Representative Relationship Specialty Start Date End Date Raymundo Mcdonald NP [address] [place] [address] PCP - General Nurse Practitioner 10/10/23
--- OUTSIDE RECORDS SUMMARY | 2025-06-05 09:44 | XMS_ITS | Clinical Summary ---
Author Organization [employer] Address [address] [facility] 7t [place] [address] Care Team Providers Care Microwave Remote Sensing Scientist Name Role Phone Unavailable Primary Care Provider [...] 8: 34 AM EDT Plan of Treatment Health Maintenance Due Date [...] 2) 09/25/2024 07/31/2024 COVID-19 Vaccine (3 - 2024- season) 2025 07/05/2021, 01/09/2021 Influenza Vaccine (#1) [...] patient's age to complete this topic Insurance ACO
--- OUTSIDE RECORDS SUMMARY | 2025-06-05 09:44 | XMS_ITS | Clinical Summary ---
Author Organization [facility] Address [address] [place] [address] Phone Care Team Providers Care Um Nurse Name Role Phone Raymundo Mcdonald NP Primary [...] Not on file Insurance [place] [address] [place] [address] [place] [address] [place] [address] [place] [address] [place] [address] ACO Care Teams Um Nurse Relationship Specialty Start Date End Date Raymundo Mcdonald NP [facility] [place] [address] PCP - General Nurse Practitioner 08/03/23 Additional Source Comments The information contained in this document represents components of the legal health record. It is not the complete legal health record.[facility]
--- OUTSIDE RECORDS SUMMARY | 2025-06-05 09:44 | XMS_ITS | Clinical Summary ---
Author Organization [facility] Address [address] [place] [address] Care Team Providers Care Web Graphic Designer Name Role Phone Cr Madera MD Primary Care Provider [phone] Surgical History Surgery Date Site/Laterality Comments VENTRAL HERNIA REPAIR PROCEDURE: HISTORICAL VTRL WALL HERNIA RE APPENDECTOMY PROCEDURE: HISTORICAL APPENDECTOMY; COMMENT: w/ incisional hernia repair HYSTERECTOMY PROCEDURE: HISTORICAL TOTAL HYSTERECTOMY WITH BSO HERNIA REPAIR PROCEDURE: [place] REPAIR FIRST ABDOMINAL WALL HERNIA Medical History [...] Last Done Comments Breast Cancer Screening 1967 Colorectal Cancer Screening: Colonoscopy 1967 DTaP,Tdap,and Td Vaccines (1 - Tdap) 1986 Hepatitis B Vaccines (1 of 3 - 19+ 3-dose series) 1986 Pneumococcal Vaccine: 50+ Ye ars (1 of 2 - PCV) 1986 Cervical Cancer Screening: P ap Smear 1988 Zoster Vaccines (1 of 2) 2017 Cholesterol Screening (Lipid Panel) 08/07/2022 HIV Screening 08/07/2022 Hepatitis C Screening 08/07/2022 Social Influencers of Health Screening 08/07/2022 Depression Screening 09/04/2024 COVID-19 Vaccine (1 - 2023-2 5 season) 2025 Influenza Vaccine (#1) 2025 RSV Immunization Adult Patie nts (1 - 1-dose 75+ series) 2042 HIB [...] age to complete this topic Care Teams Web Graphic Designer Relationship Specialty Start Date End Date Cr Madera MD [address] [place] [address] PCP - General Internal Medicine 07/05/17
== END 2025-06-05 09:36 | disposition home or self-care (01) ==
LOC: HO.PMC 09:01
PROVIDERS: PCP Nurse Practitioner Family; Visit Provider Anesthesiology
DX: M81.0 Age-related osteoporosis without current pathological fracture (principal); M47.816 Spondylosis without myelopathy or radiculopathy, lumbar region; M46.1 Sacroiliitis, not elsewhere classified; M99.04 Segmental and somatic dysfunction of sacral region
CPT/HCPCS: 99214

== ENCOUNTER → 2025-06-05 09:00 | Outpatient (BNVA) | payer OTHER, SELFPAY | PROVIDERS: PCP Nurse Practitioner Family; Visit Provider Anesthesiology | DX: M81.0 Age-related osteoporosis without current pathological fracture (principal); M47.816 Spondylosis without myelopathy or radiculopathy, lumbar region; M46.1 Sacroiliitis, not elsewhere classified; M99.04 Segmental and somatic dysfunction of sacral region | CPT/HCPCS: 99212 ==

== ENCOUNTER 2025-06-13 12:50 | Outpatient (AMB) | payer OTHER, SELFPAY ==
--- NOTE | 2025-06-13 12:55 | A.OFFVIS_ITS ---
Vital Signs 06/13/25 12:56 Height 5 ft 3 in Weight 152 lb 1.903 oz BMI 26.9 BP 120/72 Blood Pressure Location Lt brachial Position Sitting Pulse 86 Pulse Source Pulse Oximeter Pulse Oximetry (%) 98 Oxygen Delivery Method Room Air Intake Visit Reasons: solitary pulm nodule Accompanied by: Daughter Allergies Sulfa (Sulfonamide Antibiotics) (SULFA (SULFONAMIDE ANTIBIOTICS)) Allergy (Intermediate, Verified 06/13/25 13:00) HIVES Latex, Natural Rubber Allergy (Mild, Verified 06/13/25 13:00) Rash egg Allergy (Verified 06/13/25 13:00) Abdominal Pain strawberry Allergy (Verified 06/13/25 13:00) Abdominal Pain aspirin (ASPIRIN) Adverse Reaction (Intermediate, Verified 06/13/25 13:00) ABD PAIN morphine (MORPHINE) Adverse Reaction (Intermediate, Verified 06/13/25 13:00) Abdominal Pain almond Allergy (Severe, Uncoded 05/26/25 09:41) Stomack pain Lactose intollerance Allergy (Severe, Uncoded 05/26/25 09:41) Stomach pain, nausceau HPI Comments Details: The patient is a 60year-old woman with a known history of asthma in addition to pulmonary nodules. More recently she underwent thyroid surgery for an abnormal thyroid nodule. She had a partial thyroidectomy and the results were positive for cancer. She also has other nodules in the left lobe, but, apparently they did decrease in size. From a respiratory status she has been stable on the current respiratory regimen. She has not required prednisone. Also to note that she had a positive ROSE titer. She did follow-up with Rheumatology who data complete connective tissue disease workup and was negative. We did review her last CT scan of the chest that was done back in October 2018 for right middle lobe nodular density that appears to be partially calcified but with a haziness a rounded suggesting some degree of inflammation. Based on the fact the patient has a new diagnosis of thyroid cancer in the fact that her last CT scan was year ago the patient needs to have a repeat CT scan at this time. Otherwise the patient is without any other complaints. 11/08/2021 the patient is here for a pulmonary follow-up visit. Overall she has been complaining of increasing shortness of breath and also weight gain. She has been very frustrated with weight gain and also swelling. She will be following up with Rheumatology to see if there is any issues with her fibromyalgia resulting the swelling. She also has an elevated ROSE that she had in the past. She follow-up with Rheumatology regarding that as well. In the meantime the patient had a CT scan of the chest back in March 2021 demonstrating pulmonary nodules largest measuring 6 mm in size. She also history of thyroid cancer. She was supposed to have a CT scan previously but due to the pandemic she has not done so. In view of her worsening shortness of breath and history of thyroid cancer will go ahead and plan to repeat the CT scan prior to the next visit. She continues use her respiratory therapy. She had ran out of her singular because she did not follow-up. Therefore most likely some of the allergy symptoms and shortness of breath may be from the discontinuation of the medication. I am hopeful that her respiratory status improves when she gets back on therapy. She does have a rescue inhaler as well. If however after starting her Singulair in using her antihistamines if she continues to have increasing shortness of breath and wheezing and need for her rescue inhaler more than twice a week she will call and I will send her maintenance inhaler. 12/09/2022 the patient is here for pulmonary follow-up visit. The patient is struggling with multiple ailments. She is followed closely by multiple senior design engineering specialist. She is getting pretty hard of all her medical issues. Has significant elements. She is working closely with GI and also Rheumatology. In the meantime she did have a CT scan of the chest requested by me demonstrating stable pulmonary nodules. The pulmonary nodules have not changed since 2017 so therefore no further intervention is warranted. She continues use her respiratory therapy. She still continues to be symptomatic with some coughing wheezing at times. In addition to that she complains of significant pruritus throughout her body and also some difficulties tolerating foods. She did have a food RAST study but was very limited. Therefore, I do believe that in view of all her elements and allergic reactions she should have a full allergy evaluation with scratch testing. Will go ahead and refer to Allergy at this time. In the meantime she can continue with her antihistamine therapy and also add Pepcid. 12/15/2023 the patient is here for pulmonary follow-up visit. She has been doing fairly well from a respiratory status. She does have episodes of shortness of breath and wheezing. They can be intermittent. Typically does respond to the rescue inhaler. She typically does not using inhaler often does not twice a week. The patient does use her maintenance inhaler. In addition to that she can dealing with other issues such as lower extremity edema. She was taken off her diuretic because she was having low potassium levels. She is following closely now with Nephrology. She is taking high-dose supplement. Her last potassium level was stable and she is going to have another drawn. The patient also has been complaining of pleuritic skin. She has been scratching a lot. She does not have a rash. She is wondering if his allergies. She had been taking antihistamine therapy. As far as her pulmonary nodules the CT scan that she had last back in 2020 demonstrated stable pulmonary nodules more than 2 years. The patient does not need any serial this time. 07/31/2024 the patient is here for pulmonary follow-up visit. The patient has multiple complaints. She does have issues with back in addition to her neck and also having abdominal discomfort. She is following closely with multiple specialists. As far as her breathing she seems to be doing okay. She does not get a great response from the QVAR. She does use her Ventolin couple times a day. She does find relief when she uses the Ventolin. The patient also had a bout of a respiratory illness resulting in an asthma flare-up. She was treated with medicines and she is back to her baseline. Will go ahead and optimize her respiratory medication switching her from QVAR to Dulera. She can use it 2 puffs twice a day make sure she rinses her mouth. She continue the Ventolin. Unfortunately she continues to smoke cigarettes. She would like to quit. Will go ahead and send her a patch. She knows not to smoke when she has a patch on. In addition to that will start her on the lung cancer screening program. 06/13/2025 the patient is here for pulmonary follow-up visit. The patient continues to have multiple complaints. The patient has significant arthralgias and myalgias. She has been following closely with pain management and also had been seen by Rheumatology in the past. She did have to undergo an abdominal surgery and after that she has been having some right-sided right upper quadrant abdominal discomfort although it could also be from the chest area. She did have blood work done back in May demonstrating slight elevation of LFTs. She is going to see her primary care doctor soon. In the meantime the patient does have a pulmonary nodule. We did look at her last CT scan from 2022 where she shows a subsolid pulmonary nodule measuring around 6-7 mm in size. Based on the appearance that is indeed concerning looking nodule because of her high risk of cancer because she is currently smoking and also because of the appearance of the actual nodule. Therefore, will request a CAT scan at this time. She had been referred to the lung cancer screening in the past but for some reason she has not been participating. Will go ahead and request a CAT scan at this time and then afterwards if the CAT scan and stable we can refer her to the lung cancer screening program. She is currently working on smoking cessation. She is cutting down with nicotine free cigarettes. And will continue to monitor her closely. [facility] Medical History (Updated 06/16/25 @ 19:43 by Murray Martinez MD) Pain Low vitamin B12 level Smoker Numbness Wheezing Chronic radicular pain of lower back Foot pain, bilateral Joint pain in both hands Breast pain Hypokalemia Breast pain, right Allergies Migraines Renal calculi Bipolar disorder Chronic abdominal pain Osteoporosis Hyperparathyroidism Multinodular thyroid Depression Fibromyalgia Thrombocytosis Leukocytosis GERD (gastroesophageal reflux disease) Thyroid cancer PONV (postoperative nausea and vomiting) Elevated cholesterol Difficulty swallowing Vitamin D deficiency Anxiety Pulmonary nodule Asthma HTN (hypertension) Surgical History H/O pyloroplasty (03/27/24) History of excision of mass Hx of thyroidectomy H/O esophagogastroduodenoscopy H/O colonoscopy History of bilateral oophorectomy Hx of cholecystectomy S/P excision of lipoma History of total abdominal hysterectomy Hx of appendectomy Family History Father Diabetes mellitus Skin cancer Prostate cancer Mother HTN (hypertension) High cholesterol Mental health disorder Maternal Grandfather Myocardial infarction Maternal Grandmother No problems noted. Paternal Grandfather No problems noted. Paternal Grandmother Breast cancer Sister Mental health disorder Social History Household Members: None Housing: Apartment Are you a primary team primary care physician to a significant other at home: No Do you presently have visiting nurse or other home services: No Alcohol intake: never Patient Tobacco Use Status: Current everyday Tobacco user Tobacco use type: Cigarette Cigarettes Per Day: 5 Years Smoked: 20 e-Cigarette/Vaping Use: Never Used Second Hand Smoke Exposure: No Advance Directives Date on File: 10/05/16 service: No Current occupational status: disabled Sexual orientation: Straight/Heterosexual Gender identity: Female Cognitive needs: No Hearing needs: No Vision needs: Yes Review of Systems Const Denies night sweats and Reports weight gain Eyes Denies change in vision ENT Denies change in voice, Denies lip swelling, Denies mouth pain, Reports nasal congestion, Reports nasal discharge and Denies tongue swelling Card Denies chest pain Resp Reports cough and Reports wheezing GI Reports as per HPI, Reports abdominal pain, Reports bloating, Reports change in stool character, Reports constipation, Reports dyspepsia and Reports heartburn Musc Reports myalgias, Reports arthralgias and Reports joint swelling Skin/Breast Denies rash Neuro Denies Neuro-related abnormal movements Psych Denies no additional complaints Christopher/Lymph Denies easy bleeding and Denies lymphadenopathy Aller/Immun Denies lip swelling, Denies tongue swelling and Reports wheezing Physical Exam Vital Signs: Last Vital Signs Pulse 86 06/13/25 12:56 BP 120/72 06/13/25 12:56 Pulse Ox 98 06/13/25 12:56 Oxygen Delivery Method Room Air 06/13/25 12:56 BMI result Body Mass Index 26.9 Const Orientation/consciousness: patient oriented x3 HEENT Head: Yes normocephalic Neck Neck: Yes supple Chest Chest palpation & inspection: normal inspection of the chest Resp Effort & Inspection: normal respiratory effort and able to speak in complete sentences Auscultation: clear to auscultation bilaterally Cardio Rate: regular rate Rhythm: regular rhythm Back/Spine/Pelvis Other: Bilateral posterior cervical tightness and tenderness. Neuro Other: DTR testing limited d/t pt anxious and moving. No pronator drift- but pt performed test slowly. General: patient oriented x3, gait normal and moves all extremities Cranial nerves: Yes Individual cranial nerve findings present II: normal, III: normal, IV: normal, V: abnormal (increased sensation on left), : normal, VII: normal, VIII: normal, IX: normal, X: normal, XI: normal and XII: normal Cognition (Neuro): normal cognition Gait exam (Neuro): Normal gait present Motor exam (neuro): 5/5 motor strength present throughout and Tremors during motor activity present (BUE mild postural tremor) Deep tendon reflexes (DTR's): Right triceps reflex intensity grade: 2+, Left triceps reflex intensity grade: 2+, Rt Biceps (C5, C6): 2+, Left biceps reflex intensity grade: 2+, Right brachioradialis reflex intensity grade: 2+, Left brachioradialis reflex intensity grade: 2+, Right patellar reflex intensity grade: 2+, Left patellar reflex intensity grade: 2+, Right ankle reflex intensity grade: 2+ and Left ankle reflex intensity grade: 2+ Coordination: [id number] test normal, [id number] test normal, tandem gait normal and Romberg test negative Pupils: Normal pupillary reactivity/response: bilateral Psych Appearance: grossly normal Mental Status: mental status grossly normal Speech and movement: Clear speech present Affect: normal affect (more anxious during physical exam) Attitude: cooperative Thought process: Normal thought process present Office Procedures Flu Questionnaire Does the patient have a severe egg allergy?: No Does the patient have severe life threatening allergies?: No Does the patient have a fever or illness today?: No Has the patient ever had Guillain-[place] Syndrome?: No Has the patient ever had any past reaction to a flu shot?: No Immunizations Fluarix [id number] (PF) 45 mcg (15 mcg x 3)/0.5 mL IM syringe Performing Provider: Murray Martinez MD Performing Location: [facility] Administered by: Faby Aparicio LPN on 06/13/25 13:28 Dose Route Admin Location Dispensed Lot Number Expiration Date NDC Storekeeper Helper 0.5 mL IM Left Deltoid 0.5 mL [id number] 03/03/26 [id number] [employer] V[employer] Given Date VIS Provided VIS Publication Date 06/13/25 Single Vaccine 24 Eligibility Eligibility Date Funding Source Not [facility] Eligible 06/13/25 Private Assessment & Plan Assessment & Plan (1) Pulmonary nodules: Comment: subsolid, +Tob Code(s): R91.8 - Other nonspecific abnormal finding of lung field Category: Medical (2) Thyroid cancer: Code(s): C73 - Malignant neoplasm of thyroid gland Category: Medical (3) Asthma: Code(s): J45.909 - Unspecified asthma, uncomplicated Category: Medical Qualifiers: Asthma complication type: uncomplicated Asthma persistence: persistent Asthma severity: moderate Qualified Code(s): J45.40 - Moderate persistent asthma, uncomplicated Plan: Continue respiratory medications (4) Acid reflux: Code(s): K21.9 - Gastro-esophageal reflux disease without esophagitis Category: Medical Qualifiers: Esophagitis presence: without esophagitis Qualified Code(s): K21.9 - Gastro-esophageal reflux disease without esophagitis (5) Smoker: Code(s): F17.200 - Nicotine dependence, unspecified, uncomplicated Category: Social Hx (6) Pulmonary nodule: Code(s): R91.1 - Solitary pulmonary nodule Category: Medical Plan continue montelukast continue antihistamines continue reflux diet Dulera BID CT chest tobacco cessation: patch short-acting beta agonist as needed Bloodwork follow-up in 6 months Orders: Orders Lipase 06/13/25 R52 - Pain, unspecified Liver Panel 06/13/25 R52 - Pain, unspecified ROSE Reflex Titer and Pattern 06/13/25 R91.1 - Solitary pulmonary nodule Sjogren's Antibodies 06/13/25 R91.1 - Solitary pulmonary nodule Scleroderma 70 Antibody 06/13/25 R91.1 - Solitary pulmonary nodule Influenza [id number] Immunization 06/13/25 J45.40 - Moderate persistent asthma, uncomplicated Complete Blood Count Auto Diff Today R52 - Pain, unspecified Basic Metabolic Panel 06/13/25 R52 - Pain, unspecified Immunoglobulin E 06/13/25 R52 - Pain, unspecified CT chest wo IV con 06/13/25 R91.1 - Solitary pulmonary nodule Cyclic Citrullinated Peptide 06/13/25 R91.1 - Solitary pulmonary nodule Coding Level of Care Code Est Pt Level 4 (56952) Complex EM visit Add On G2211 Diagnoses Pulmonary nodules R91.8 Thyroid cancer C73 Moderate persistent asthma without complication J45.40 Asthma complication type: uncomplicated Asthma persistence: persistent Asthma severity: moderate Gastroesophageal reflux disease without esophagitis K21.9 Esophagitis presence: without esophagitis Smoker F17.200 Pulmonary nodule R91.1 Time Spent (min) 18
[2025-06-13 12:56] VITALS: BP 120/72; PULSE 86; O2SAT 98; BMI 26.9
== END 2025-06-13 13:31 | disposition home or self-care (01) ==
LOC: HO.HPS 12:51
PROVIDERS: PCP Nurse Practitioner Family; Visit Provider Hospitalist
DX: J45.40 Moderate persistent asthma, uncomplicated (principal)
CPT/HCPCS: 99214

== ENCOUNTER → 2025-06-13 12:50 | Outpatient (BNVA) | payer OTHER, SELFPAY | PROVIDERS: PCP Nurse Practitioner Family; Visit Provider Hospitalist | DX: R91.1 Solitary pulmonary nodule (principal); C73 Malignant neoplasm of thyroid gland; J45.40 Moderate persistent asthma, uncomplicated; K21.9 Gastro-esophageal reflux disease without esophagitis; F17.200 Nicotine dependence, unspecified, uncomplicated; Z23 Encounter for immunization | CPT/HCPCS: 90471; 90656; 99212 ==

== ENCOUNTER 2025-06-25 08:58 | Outpatient (REF) | payer OTHER, SELFPAY ==
[2025-06-25 09:57] LABS: Hematocrit 43.4 % (37.0-47.0); Hemoglobin 14.4 g/dl (12.0-16.0); Imm Gran Abs Auto 0.08 X10*3/uL (0.00-0.03); Imm Gran Pct Auto 0.6 % (0.0-0.4); Lymphocytes Absolute Auto 5.1 X10*3/uL (1.2-4.9); MANUAL DIFF FLAG SCAN; Mean Corpuscular HGB Conc 33.2 g/dl (31.0-35.0); Mean Corpuscular Hemoglobin 30.8 pg (27.0-33.0); Mean Corpuscular Volume 92.7 fL (80.0-98.0); NRBC Abs Auto 0.000 X10*3/uL (0.0-0.012); NRBC Pct Auto 0.0 /100WBC (0.0-0.2); Platelet Count 412 X10*3/uL (160-400); Red Blood Count 4.68 X10*6/uL (4.20-5.50); SCAN SMEAR FLAG 1; White Blood Count 13.6 X10*3/uL (4.8-10.8)
--- OUTSIDE RECORDS SUMMARY | 2025-06-25 09:59 | XMS_ITS | Clinical Summary ---
Author Organization [employer] [facility] Address [address] [place] [address] Care Team Providers Care Commercial Or Institutional Cleaner Name Role Phone Cr Madera MD Primary Care Provider [phone] Surgical History Surgery Date Site/Laterality Comments VENTRAL [...] Cervical Cancer Screening: P ap Smear 1988 RSV Immunization Adult Patie nts (1 - Risk 50-74 years 1-dose series) 2017 Zoster Vaccines (1 of 2) 2017 Cholesterol [...] age to complete this topic Care Teams Commercial Or Institutional Cleaner Relationship Specialty Start Date End Date Cr Madera MD [address] [place] [address] PCP - General Internal Medicine 07/05/17
--- OUTSIDE RECORDS SUMMARY | 2025-06-25 09:59 | XMS_ITS | Clinical Summary ---
Author Organization [employer] Address [address] [place] [address] Care Team Providers Care Head Trimmer Name Role Phone Unavailable Primary Care Provider [...]
--- OUTSIDE RECORDS SUMMARY | 2025-06-25 09:59 | XMS_ITS | Clinical Summary ---
Author Organization [facility] Address [address] [place] [phone] Phone Care Team Providers Care Tunneling Machine Operator Name Role Phone Raymundo Mcdonald [...] 2017 INFLUENZA VACCINE (#1) 2025 COVID-19 VACCINE (1 - 2024-2 6 season) 2025 RSV VACCINE (1 - 1-dose 75+ series) 2042 HEPATITIS A VACCINES Aged Out No long [...] Devices Not on file Insurance [place] [address] [place] [address] [place] [address] [place] [address] [employer] [place] [id number] Care Teams Tunneling Machine Operator Relationship Specialty Start Date End Date Raymundo Mcdonald NP [facility] [place] [address] PCP - General Nurse Practitioner 08/03/23 Additional Source Comments The information contained in this document represents components of the legal health record. It is not the complete legal health record.[facility]
[2025-06-25 10:27] LABS: Albumin Level 5.0 g/dL (3.5-5.0); Alkaline Phosphatase 67 U/L (39-117); Anion Gap 12 (12-20); Aspartate Amino Transferase 33 U/L (5-31); Blood Urea Nitrogen 8 mg/dL (9-16); Calcium 10.8 mg/dL (8.4-10.2); Carbon Dioxide 22 mmol/L (22-29); Chloride 109 mmol/L (96-108); Estimated Glomerular Filt Rate > 60; Lipase 33 U/L (8-78); Potassium 3.8 mmol/L (3.3-5.1); Sodium 139 mmol/L (135-145); Total Protein 7.7 g/dL (6.5-8.0)
[2025-06-25 10:43] LABS: Alanine Aminotransferase 50 U/L (0-31)
[2025-07-02 23:28] LABS: Antibody to SS-A Antigen <1.0 NEG AI (<1.0 NEG); Antibody to SS-B Antigen <1.0 NEG AI (<1.0 NEG)
[2025-07-04 13:49] LABS: Anti Nuclear Antibody Pattern Nuclear, Nucleolar; Anti Nuclear Antibody Screen POSITIVE (NEGATIVE); Anti Nuclear Antibody Titer 1:320 titer
== END 2025-06-25 08:59 | disposition home or self-care (01) ==
LOC: HO.LAB 08:58
PROVIDERS: PCP Nurse Practitioner Family; Visit Provider Hospitalist
DX: R91.1 Solitary pulmonary nodule (principal); R52 Pain, unspecified; Z01.84 Encounter for antibody response examination
CPT/HCPCS: 36415; 80048; 80076; 82785; 83690; 85025; 86038; 86039; 86200; 86235

== ENCOUNTER 2025-07-02 09:20 | Outpatient (AMB) | payer OTHER, SELFPAY ==
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
[2025-07-02 09:29] VITALS: BP 136/82; PULSE 112; RESP 16; O2SAT 96; BMI 28.0
--- OUTSIDE RECORDS SUMMARY | 2025-07-02 10:47 | XMS_ITS | Encounter Summary ---
Author Organization [facility], Address [address] [place] [address] Phone Care Team Providers Care Rn Acute Dialysis Name Role Phone Raymundo Mcdonald NP Primary Care Provider [phone] Encounter Details Date Type Department Care Team (Late st Contact Info) Description 10/10/2023 Documentation Only [facility], [address] [place] [address] [place], [place] [address] [place] [address] Social History Tobacco Use Types [...] on filedocumented in this encounter Care Teams Rn Acute Dialysis Relationship Specialty Start Date End Date Raymundo Mcdonald NP [address] [place] [address] PCP - General Nurse Practitioner 10/10/23 documented as of this encounter
--- OUTSIDE RECORDS SUMMARY | 2025-07-02 10:47 | XMS_ITS | Clinical Summary ---
Author Organization [facility] Address [address] [facility] [address] [place] [address] Care Team Providers Care Lens Polisher Name Role Phone Unavailable Primary Care Provider [...]
--- OUTSIDE RECORDS SUMMARY | 2025-07-02 10:47 | XMS_ITS | Clinical Summary ---
Author Organization [facility], Address [address] [place] [address] [place] [address] Phone Care Team Providers Care Diagnostic Cardiac Sonographer Name Role Phone Raymundo Mcdonald NP Primary Care Provider [phone] Allergies Active Allergy Reactions Criticality Noted Date [...] PCV) 017 Influenza Vaccine (#1) 2025 Insurance [facility] Medicaid Care Teams Diagnostic Cardiac Sonographer Relationship Specialty Start Date End Date Raymundo Mcdonald NP [address] [place] [address] PCP - General Nurse Practitioner 10/10/23
--- OUTSIDE RECORDS SUMMARY | 2025-07-02 10:48 | XMS_ITS | Clinical Summary ---
Author Organization [facility] Address [address] [place] [address] Phone Care Team Providers Care Respiratory Clinician Name Role Phone Raymundo Mcdonald NP Primary [...] Devices Not on file Insurance [place] [address] [address] [place] [address] [place] [place] [address] [place] [address] [employer] [id number] Care Teams Respiratory Clinician Relationship Specialty Start Date End Date Raymundo Mcdonald NP [facility] [place] [address] PCP - General Nurse Practitioner 08/03/23 Additional Source Comments The information contained in this document represents components of the legal health record. It is not the complete legal health record.[facility]
--- OUTSIDE RECORDS SUMMARY | 2025-07-02 10:48 | XMS_ITS | Clinical Summary ---
Author Organization [facility] Address [address] [place] [address] Care Team Providers Care Police Communications Dispatcher Name Role Phone Cr Madera MD Primary Care Provider [phone] Surgical History Surgery Date Site/Laterality Comments VENTRAL HERNIA REPAIR PROCEDURE: HISTORICAL VTRL WALL HERNIA RE APPENDECTOMY PROCEDURE: HISTORICAL APPENDECTOMY; COMMENT: w/ incisional hernia repair HYSTERECTOMY PROCEDURE: HISTORICAL TOTAL HYSTERECTOMY WITH BSO HERNIA REPAIR PROCEDURE: VA REPAIR FIRST ABDOMINAL WALL HERNIA Medical History [...] age to complete this topic Care Teams Police Communications Dispatcher Relationship Specialty Start Date End Date Cr Madera MD [address] [place] [address] PCP - General Internal Medicine 07/05/17
== END 2025-07-02 15:18 | disposition home or self-care (01) ==
LOC: HO.HMCC 09:21
PROVIDERS: PCP Nurse Practitioner Family; Visit Provider Nurse Practitioner Family
DX: Z00.01 Encounter for general adult medical examination with abnormal findings (principal); R74.8 Abnormal levels of other serum enzymes; G43.009 Migraine without aura, not intractable, without status migrainosus; H61.23 Impacted cerumen, bilateral; M54.16 Radiculopathy, lumbar region; G89.29 Other chronic pain; Z23 Encounter for immunization

== ENCOUNTER → 2025-07-02 09:20 | Outpatient (BNVA) | payer OTHER, SELFPAY | PROVIDERS: PCP Nurse Practitioner Family; Visit Provider Nurse Practitioner Family | DX: Z00.01 Encounter for general adult medical examination with abnormal findings (principal); M54.16 Radiculopathy, lumbar region; G89.29 Other chronic pain; G43.909 Migraine, unspecified, not intractable, without status migrainosus; R10.9 Unspecified abdominal pain; D72.829 Elevated white blood cell count, unspecified; R74.8 Abnormal levels of other serum enzymes; Z23 Encounter for immunization | CPT/HCPCS: 69209; 90471; 90715; 93005; 99396 ==

== ENCOUNTER 2025-07-03 06:11 | Outpatient (REF) | payer OTHER, SELFPAY ==
--- NOTE | ~2025-07-03 | FL_ITS ---
EXAMINATION: FL GUIDANCE ONLY HISTORY: M47.817 - Spondylosis without myelopathy or radiculopathy, lumbosacral... COMPARISON: None available. TECHNIQUE: Fluoroscopy time: 10 seconds. Cumulative Dose: 2.30 mGy. DAP: 262.50 mGycm2 Images: 2. FINDINGS: Fluoroscopic spot films of the lumbar spine demonstrate needles and contrast material in the regions of the bilateral L3-4, L4-5, and L5-S1 facet joints. FL/FL guidance in treatment room IMPRESSION: Fluoroscopy during procedure. Please see procedure report for additional information. Electronically signed by: Deuce Pierre MD 07/03/2025 02:34 PM EDT
--- OUTSIDE RECORDS SUMMARY | 2025-07-03 06:14 | XMS_ITS | Clinical Summary ---
Author Organization [facility] Address [address] [facility] [address] [place] [address] Care Team Providers Care Head Bander And Liner Operator Name Role Phone Unavailable Primary Care [...]
--- OUTSIDE RECORDS SUMMARY | 2025-07-03 06:14 | XMS_ITS | Clinical Summary ---
Author Organization [facility] Address [address] [place] [address] Care Team Providers Care General Activities Therapist Name Role Phone Cr Madera MD Primary Care Provider [phone] Surgical History Surgery Date Site/Laterality Comments VENTRAL [...] age to complete this topic Care Teams General Activities Therapist Relationship Specialty Start Date End Date Cr Madera MD [address] [place] [address] PCP - General Internal Medicine 07/05/17
--- OUTSIDE RECORDS SUMMARY | 2025-07-03 06:14 | XMS_ITS | Encounter Summary ---
Author Organization [facility], Address [address] [place] [address] Phone Care Team Providers Care Manager Statistics Name Role Phone Raymundo Mcdonald NP Primary Care Provider [phone] Encounter Details Date Type Department Care Team (Late st Contact Info) Description 10/10/2023 Documentation Only [facility], [address] [place] [address] [place], [place] [address] [place] [address] Social History Tobacco Use Types [...] filedocumented in this encounter Care Teams Manager Statistics Relationship Specialty Start Date End Date Raymundo Mcdonald NP [address] [place] [id number] PCP - General Nurse Practitioner 10/10/23 documented as of this encounter
--- OUTSIDE RECORDS SUMMARY | 2025-07-03 06:14 | XMS_ITS | Clinical Summary ---
Author Organization [facility], Address [address] [place] [address] [place] [address] Phone Care Team Providers Care Coordinator Of Online Programs Name Role Phone Raymundo Mcdonald NP Primary Care Provider Allergies Active Allergy Reactions Criticality Noted Date [...] PCV) 017 Influenza Vaccine (#1) 2025 Insurance [facility] Medicaid Care Teams Coordinator Of Online Programs Relationship Specialty Start Date End Date Raymundo Mcdonald NP [address] [place] [address] PCP - General Nurse Practitioner 10/10/23
== END 2025-07-03 06:12 | disposition home or self-care (01) ==
LOC: CF 06:11
PROVIDERS: Visit Provider Internal Medicine
DX: M47.817 Spondylosis without myelopathy or radiculopathy, lumbosacral region (principal)
CPT/HCPCS: 64493; 64494; J2003; J2795; Q9967

== ENCOUNTER 2025-07-03 10:44 | Outpatient (AMB) | payer OTHER, SELFPAY ==
[2025-07-03 11:07] VITALS: BP 126/70; PULSE 96; RESP 16; O2SAT 97
--- NOTE | 2025-07-03 11:07 | MHC.OFFVIS ---
Vital Signs 07/03/25 11:07 07/03/25 11:30 BP 126/70 120/74 Blood Pressure Location Lt brachial Lt brachial Position Sitting Sitting Respiration 16 16 Pulse 96 97 Pulse Source Pulse Oximeter Pulse Oximeter Pulse Oximetry (%) 97 98 Oxygen Delivery Method Room Air Room Air Intake Visit Reasons: Bilateral DX L2-L3-L4 MBB Distance Education Director Required: Yes Distance Education Director Services: Distance Education Director Offered & Declined Distance Education Director Name: prefers daughter to translate Accompanied by: Child Allergies Sulfa (Sulfonamide Antibiotics) (SULFA (SULFONAMIDE ANTIBIOTICS)) Allergy (Intermediate, Verified 07/07/25 09:57) HIVES Latex, Natural Rubber Allergy (Mild, Verified 07/07/25 09:57) Rash egg Allergy (Verified 07/07/25 09:57) Abdominal Pain strawberry Allergy (Verified 07/07/25 09:57) Abdominal Pain aspirin (ASPIRIN) Adverse Reaction (Intermediate, Verified 07/07/25 09:57) ABD PAIN morphine (MORPHINE) Adverse Reaction (Intermediate, Verified 07/07/25 09:57) Abdominal Pain almond Allergy (Severe, Uncoded 07/03/25 11:08) Stomack pain Lactose intollerance Allergy (Severe, Uncoded 07/03/25 11:08) Stomach pain, nausceau Medication List - Last Reconciled 07/03/25 by Brandy Melgar LPN albuterol sulfate 2.5 mg (3 mL) PO DAILY PRN amitriptyline 50 mg (2 x 25 mg) PO BEDTIME 30 days amlodipine 10 mg PO DAILY azelastine 1 spray intranasal BID cane Quad cane cholecalciferol (vitamin D3) 25 mcg PO DAILY clonazepam 0.5 mg PO DAILY PRN clonazepam 1 mg PO BEDTIME PRN cyproheptadine 4 mg PO BEDTIME PRN 30 days diclofenac sodium 1% 2 grams topical BID PRN NS diclofenac sodium 50 mg PO BID PRN dicyclomine 10 mg PO BID famotidine 40 mg PO BEDTIME gabapentin 800 mg PO TID galcanezumab-gnlm (Emgality Pen) 120 mg subcut Q30D hydrocortisone 2.5% 1 appl WA Q8-12H hydrocortisone acetate (Anusol-HC) 25 mg WA BID PRN lansoprazole 30 mg PO DAILY linaclotide (Linzess) 290 mcg PO DAILY loratadine 10 mg PO DAILY memantine 10 mg PO Q OTHER DAY mometasone-formoterol 200-5 mcg/actuation (Dulera) 2 puffs inhalation Q12H 30 days montelukast 10 mg PO BEDTIME multivitamin (Daily-Laxmi tablet) 1 tab PO DAILY naloxone 4 mg/actuation (Narcan) 1 spray intranasal Q2M omega-3 acid ethyl esters 1 cap PO BID 90 days omeprazole 40 mg PO DAILY ondansetron 8 mg PO Q8H PRN polyethylene glycol 3350 (Gavilax) 17 grams PO DAILY potassium chloride ER 10 mEq PO DAILY pravastatin 20 mg PO BEDTIME prazosin 2 mg PO BEDTIME prazosin 1 mg PO BEDTIME rizatriptan 10 mg PO Q2H PRN 30 days MDD 20 mg romosozumab-aqqg (Evenity) 210 mg (2.34 mL) subcut Q28D sennosides (Senna Laxative) 17.2 mg (2 x 8.6 mg) PO BEDTIME sertraline 100 mg PO DAILY Shower Chair As directed spironolactone 25 mg PO DAILY ubrogepant (Ubrelvy) 50 - 100 mg (0.5 - 1 x 100 mg) PO ONCE PRN 30 days HPI HPI Bilateral DX L2-L3-L4 MBB: Details: Patient presents for scheduled procedure. Denies any recent cough, cold, infection, fever or other significant changes in medical history since last office visit. [facility] Medical History Pain Low vitamin B12 level Smoker Numbness Wheezing Chronic radicular pain of lower back Foot pain, bilateral Joint pain in both hands Breast pain Hypokalemia Breast pain, right Allergies Migraines Renal calculi Bipolar disorder Chronic abdominal pain Osteoporosis Hyperparathyroidism Multinodular thyroid Depression Fibromyalgia Thrombocytosis Leukocytosis GERD (gastroesophageal reflux disease) Thyroid cancer PONV (postoperative nausea and vomiting) Elevated cholesterol Difficulty swallowing Vitamin D deficiency Anxiety Pulmonary nodule Asthma HTN (hypertension) Surgical History H/O pyloroplasty (03/27/24) History of excision of mass Hx of thyroidectomy H/O esophagogastroduodenoscopy H/O colonoscopy History of bilateral oophorectomy Hx of cholecystectomy S/P excision of lipoma History of total abdominal hysterectomy Hx of appendectomy Family History Father Diabetes mellitus Skin cancer Prostate cancer Mother HTN (hypertension) High cholesterol Mental health disorder Maternal Grandfather Myocardial infarction Maternal Grandmother No problems noted. Paternal Grandfather No problems noted. Paternal Grandmother Breast cancer Sister Mental health disorder Social History Household Members: None Housing: Apartment Are you a primary transitions rn care coordinator to a significant other at home: No Do you presently have visiting nurse or other home services: No Alcohol intake: never Patient Tobacco Use Status: Current everyday Tobacco user Tobacco use type: Cigarette Cigarettes Per Day: 5 Years Smoked: 20 e-Cigarette/Vaping Use: Never Used Second Hand Smoke Exposure: No Advance Directives Date on File: 10/05/16 service: No Current occupational status: disabled Sexual orientation: Straight/Heterosexual Gender identity: Female Cognitive needs: No Hearing needs: No Vision needs: Yes Physical Exam Vital Signs: Last Vital Signs Pulse 97 07/03/25 11:30 Resp 16 07/03/25 11:30 BP 120/74 07/03/25 11:30 Pulse Ox 98 07/03/25 11:30 Oxygen Delivery Method Room Air 07/03/25 11:30 Office Procedures Details: Lumbar Medial Branch Block, Bilateral L2, L3, L4 medial branches (2 levels, 3 nerves) After obtaining written consent, pre-procedure blood pressure and pulse were recorded and are in the nursing record for review. The patient was placed in a prone position. The respective lumbosacral area was prepped with chloraprep and draped in sterile fashion. The skin over the target medial branch nerves was anesthetized with 0.5% lidocaine. A 22 gauge 3.5 inch needle was inserted into the target medial branch nerve under fluoroscopic guidance. No paresthesias were elicited with needle placement and aspiration was negative for blood and CSF. Next, 0.2cc of omnipaque 180 was injected to verify positioning in AP and oblique imaging. Next 0.5 ml 0.5% ropivicaine was injected (0.5cc total per level). The identical procedure was performed at the remaining levels. The skin was cleansed and a sterile bandage was applied. Following the procedure the patient's vital signs were stable. The patient tolerated the procedure well and no complications were encountered. Following the procedure the patient's vital signs were stable. The patient was discharged home in good condition with post-procedural instructions. Time Out: Immediately prior to the procedure, the following was verbally confirmed that there is a signed consent form and that the correct patient, planned procedure, site and side are consistent with documentation and that necessary equipment and/or blood products are available prior to the start of the case. Complications: none EBL: <5 cc 87540 - with Fluoroscopy (L3-L4) (bilateral) Procedure code (CPT) selection complete Assessment & Plan Assessment & Plan (1) Lumbosacral spondylosis: Code(s): M47.817 - Spondylosis without myelopathy or radiculopathy, lumbosacral region Category: Medical (2) Spondylosis of lumbar region without myelopathy or radiculopathy: Code(s): M47.816 - Spondylosis without myelopathy or radiculopathy, lumbar region Category: Medical Plan Patient is status post bilateral L2, L3, L4 MBBs. Patient tolerated procedure well and was discharged home in stable condition with discharge instructions. All questions were answered. We will follow-up via telephone or in clinic to assess response to therapy. A follow-up appointment was made during today's visit. Orders: Orders FL guidance in treatment room 07/03/25 Wilda Lobo APRN, FACILITIES MAINTENANCE SUPERVISOR M47.817 - Spondylosis without myelopathy or radiculopathy, lumbosacral region AMB Medial Branch Block - Lumbar/Sacral Today Alfonso Freitas MD M47.816 - Spondylosis without myelopathy or radiculopathy, lumbar region Coding Level of Care Code Procedure Only Diagnoses Lumbosacral spondylosis M47.817 Spondylosis of lumbar region without myelopathy or radiculopathy M47.816 CPT Codes Medial Branch Block Lumbar/Sacral1 - Branch Block Lumb/Sac 1: 92355 - with Fluoroscopy (L3-L4) ([id number])
[2025-07-03 11:30] VITALS: BP 120/74; PULSE 97; RESP 16; O2SAT 98
== END 2025-07-03 11:30 | disposition home or self-care (01) ==
LOC: HO.PMCPRC 10:44
PROVIDERS: PCP Nurse Practitioner Family; Visit Provider Internal Medicine
DX: M47.817 Spondylosis without myelopathy or radiculopathy, lumbosacral region (principal); M47.816 Spondylosis without myelopathy or radiculopathy, lumbar region
CPT/HCPCS: 64493; 64494

== ENCOUNTER 2025-07-07 09:52 | Outpatient (AMB) | payer OTHER, SELFPAY ==
--- NOTE | 2025-07-07 09:53 | MHC.OFFVIS ---
Vital Signs 07/07/25 09:57 Height 5 ft 3 in Weight 158 lb BMI 28.0 BP 138/68 Blood Pressure Location Lt brachial Position Sitting Pulse 107 H Pulse Source Pulse Oximeter Pulse Oximetry (%) 100 Oxygen Delivery Method Room Air Intake Visit Reasons: S/P Bilateral DX L2-L3-L5 MBB Intake Note: Pain today 06/13 Snowboard Instructor Required: Yes Snowboard Instructor Language: Sole Leather Cutting Machine Operator Name: Daughter Accompanied by: Daughter Allergies Sulfa (Sulfonamide Antibiotics) (SULFA (SULFONAMIDE ANTIBIOTICS)) Allergy (Intermediate, Verified 07/07/25 09:57) HIVES Latex, Natural Rubber Allergy (Mild, Verified 07/07/25 09:57) Rash egg Allergy (Verified 07/07/25 09:57) Abdominal Pain strawberry Allergy (Verified 07/07/25 09:57) Abdominal Pain aspirin (ASPIRIN) Adverse Reaction (Intermediate, Verified 07/07/25 09:57) ABD PAIN morphine (MORPHINE) Adverse Reaction (Intermediate, Verified 07/07/25 09:57) Abdominal Pain almond Allergy (Severe, Uncoded 07/03/25 11:08) Stomack pain Lactose intollerance Allergy (Severe, Uncoded 07/03/25 11:08) Stomach pain, nausceau HPI Comments Details: The patient is a 60-year-old female presenting with chronic low back pain. She has a history of radiculopathy and sacroiliac joint pain, which have been persistent issues. The patient also has a history of depression and anxiety, fibromyalgia and osteoporosis, which complicate her pain management. The patient underwent lumbar medial branch blocks on 07/03/25, targeting L2, L3, and L4 medial branches, which were diagnostic but did not provide any relief. She also had a right L5 selective nerve block without steroid, which similarly did not alleviate her symptoms. The patient has been advised against steroid use due to her osteoporosis, limiting her treatment options. Denies any recent cough, cold, infection, fever or any significant changes in medical history since last office visit. Past Procedures: 07/03/25: Bilateral Diagnostic L2-L3-L4 MBB-0% pain relief 05/29/25: Right L5 Diagnostic SNRB-0% pain relief PRIOR Dr. Herbert 06/05/25: The patient is a 59-year-old female presenting with numbness in her legs. She reports an acute episode, occurring around or Monday last week, resulted in the urgent care visit due to significant concern with inability to stand and weakness with significant low back pain. She was confined to her bathroom for approximately 2 hours due to her inability to stand during the incident. This presentation is different from her typical chronic back pain, which she notes is normally localized on the left side in the L5-S1 distribution and sometimes involving the right side as well as sacroiliac joint pain. She recently missed her bilateral diagnostic SIJ injections and is rescheduled for 12/05/24. Patient denies previous lumbar spine MRI and denies any recent MRI order at Urgent clinic with development of acute leg numbness and weakness, gait impairment to assess potential spinal or neurological involvement. - Onset and Timing: Chronic back pain and fibromyalgia; new numbness in legs occurring recently - Quality and Character: Numbness preventing prolonged standing, throbbing, shooting, radiating - Location: Left L5-S1 distribution, sometimes involving right side - Areas of Radiation: Back to front of left leg with numbness dorsal aspect of left foot - Exacerbating Factors: Movements, bending, lifting, walking, prolonged standing - Relieving Factors: None, minimal relief with NSAIDs, gabapentin, heat, rest - Interference: Prevents standing or walking, impacts mobility and ADLs - Affect: Patient expressed fear and worry due to new numbness affecting her daily life - Analgesia: Current medications include gabapentin, clonazepam, diclofenac sodium, and amitriptyline - Adverse Effects: History of liver cyst which can influence tizanidine usage - Activities of Daily Living: Numbness severely impacts ability to stand and walk - Aberrant Drug-Related Behaviors: None reported PRIOR: Patient presents today for follow up after physical therapy. Patient reports she was able to complete 4 weeks of PT without significant improvement in her functioning, mobility, or sleep. She continues to endorse neck, mid and lower back pain with radiation into her buttocks and lateral hips. She ambulates with cane. Recent cervical and lumbar spine imaging are noted below. Patient is interested to proceed with diagnostic sacroiliac joint injections as initial steps. Denies any recent cough, cold, infection, fever or any significant changes in medical history since last office visit. PRIOR: Patient is a 59 years old Amharic speaking female with history of fibromyalgia, polyarthralgia, chronic pain syndrome, osteoporosis (Evenity, repeat bone scan 2024), thyroid cancer s/p thyroidectomy, Bipolar disorder, depression, presents today for initial evaluation of low back pain and widespread body pain due to fibromyalgia. substance abuse rn it was incorporated during today's visit. Denies any recent trauma, injury or falls. History of fall in June 2023 due to left knee pain related to instability. Patient was previously seen at [facility] and completed formal course of physical therapy and underwent multiple injections 2-3 years ago with mixed results. She was referred to our office by her PCP for lumbar radiculopathy and was ordered lumbar spine MRI which was denied by her insurance. Back pain is axial and radiates to upper and lower extremities per patient. She also reports chronic right upper back pain with shooting pain down into her lower back. Pain is present with activity and rest and flares up with any movement, stress or weather changes. Pain is constant and is rated at 10/10. Patient reports tramadol and gabapentin allow her to be less symptomatic and more functional. Reports previous courses of PT for shoulder and knee pain were ineffective but willing to undergo PT for back and neck pain. Denies any fever or chills, abdominal or groin pain, weakness, footdrop, bladder or bowel dysfunction or saddle anesthesia. Patient follows with Endocrinology and Rheumatology services. Location: Lower back, right upper back, widespread body pain Duration: Chronic pain for couple years Characteristics of symptom or complaint: Aching, numbness, tingling, spasming, shooting, tiring, radiating, heavy, Aggravating or associated factors: Prolonged walking or sitting, cold weather, movements, ADLs, stress Relieving factors: Tramadol, gabapentin, heat therapy, activity modifications, rest Treatment: PT, injections at [facility] Medical History Pain Low vitamin B12 level Smoker Numbness Wheezing Chronic radicular pain of lower back Foot pain, bilateral Joint pain in both hands Breast pain Hypokalemia Breast pain, right Allergies Migraines Renal calculi Bipolar disorder Chronic abdominal pain Osteoporosis Hyperparathyroidism Multinodular thyroid Depression Fibromyalgia Thrombocytosis Leukocytosis GERD (gastroesophageal reflux disease) Thyroid cancer PONV (postoperative nausea and vomiting) Elevated cholesterol Difficulty swallowing Vitamin D deficiency Anxiety Pulmonary nodule Asthma HTN (hypertension) Surgical History H/O pyloroplasty (03/27/24) History of excision of mass Hx of thyroidectomy H/O esophagogastroduodenoscopy H/O colonoscopy History of bilateral oophorectomy Hx of cholecystectomy S/P excision of lipoma History of total abdominal hysterectomy Hx of appendectomy Family History Father Diabetes mellitus Skin cancer Prostate cancer Mother HTN (hypertension) High cholesterol Mental health disorder Maternal Grandfather Myocardial infarction Maternal Grandmother No problems noted. Paternal Grandfather No problems noted. Paternal Grandmother Breast cancer Sister Mental health disorder Social History Household Members: None Housing: Apartment Are you a primary resident care assistant to a significant other at home: No Do you presently have visiting nurse or other home services: No Alcohol intake: never Patient Tobacco Use Status: Current everyday Tobacco user Tobacco use type: Cigarette Cigarettes Per Day: 5 Years Smoked: 20 e-Cigarette/Vaping Use: Never Used Second Hand Smoke Exposure: No Advance Directives Date on File: 10/05/16 service: No Current occupational status: disabled Sexual orientation: Straight/Heterosexual Gender identity: Female Cognitive needs: No Hearing needs: No Vision needs: Yes Review of Systems Const Details: - Musculoskeletal: Reports chronic low back pain, radiculopathy, and sacroiliac joint pain - Psychological: Reports fibromyalgia, depression and anxiety All systems reviewed & are unremarkable except as noted in HPI and below Physical Exam General: Appears afebrile. Alert and oriented. Mood and affect appropriate. Follows and participates in conversation appropriately. Respiratory effort is unlabored. No cough. Able to transition from sit to stand unassisted. Ambulates with cane. Ambulates with bilaterally normal heel strike and toe off, reports pain increase on the right with heel/toe standing. General: Yes no CVA tenderness Back/Spine/Pelvis Other: Limited lumbar ROM due to pain. Lumbar extension, bending forward and flexion reproduces moderate-severe pain. Multiple widespread TTPs 16/16 bilaterally, including torso, upper and lower extremities.?Demonstrates 5/5 left and 4/5 right strength of quadriceps bilaterally as well as flexion/dorsiflexion of bilateral feet against resistance. 2+ pedal pulses bilaterally. Straight leg rise with dorsiflexion negative bilaterally. +1patellar and +1 achilles reflexes bilaterally. Facet loading test positive bilaterally. Gabby sign, Herrera?s, Gaenslen, Pelvic compression and Stinchfield tests are positive bilaterally. No groin pain with I/E hip rotations. Valsalva maneuver is positive. Back: no CVA tenderness Cervical Spine: cervical ROM normal, cervical muscular tenderness, pain with cervical ROM, No Cervical spine tenderness and No step off deformity Thoracic/Lumbar Spine: thoracic and lumbar spine normal to inspection, No Thoracic/lumbar spine scar(s), Lasegue's sign negative, straight leg raise negative bilaterally, pain with thoraco-lumbar ROM, paraspinal muscle tenderness, thoraco-lumbar ROM limited, No thoracic spinal tenderness and lumbar spinal tenderness (L4-S1) Pelvis: buttock tenderness (right>left) bilaterally Sacroiliac joints: bilaterally tender to palpation Extrem General: Yes capillary refill normal, Yes no clubbing, cyanosis or edema and Yes no calf tenderness Results Reviewed Results Reviewed: XR LUMBAR SPINE 08/05/25 CLINICAL INFORMATION: Radiculopathy, lumbar region M54.16. COMPARISON: None available. TECHNIQUE: 5 views of lumbar spine. FINDINGS: Normal vertebral body alignment. The lumbar lordosis is maintained. No acute fracture or subluxation. No loss of vertebral body height or intervertebral disc height. Tiny anterior endplate osteophytes at T11 through L1. No concerning lytic or blastic osseous lesion. Right upper quadrant surgical clips. Surgical coils overlying the anterior pelvic wall. No abnormal soft tissue calcification. IMPRESSION: Minimal degenerative disc disease at T11 through L1. XR CERVICAL SPINE 08/05/24 CLINICAL INFORMATION: Age-related osteoporosis without current pathological fracture M81.0. COMPARISON: XR Cervical spine without flexion/extension 08/16/2022 TECHNIQUE: 6 views of the cervical spine, inclusive of flexion and extension views, were obtained. FINDINGS: The vertebral alignment is normal. No intrinsic bony abnormality. No fracture or subluxation. Degenerative changes with disc space narrowing and osteophyte formation is seen at C5/6 and C6/7. Posterior facet joints appear well-maintained. No significant neural foraminal osseous encroachment. Surgical clips are seen in the paratracheal soft tissues The surrounding prevertebral soft tissues are otherwise unremarkable. IMPRESSION: Degenerative disc disease at C5/6 and C6/7. XR DEXA appendicular skeleton 08/12/24 IMPRESSION: 1. DIAGNOSIS: Osteoporosis based on the lowest T-score value of -3.5 in the lumbar spine applying World Health Organization criteria. MR LUMBAR SPINE WITHOUT CONTRAST 12/04/24 FINDINGS: Last rib-bearing vertebra labeled T12. No bone marrow STIR signal abnormality. Bone marrow inhomogeneity throughout the axial skeleton and bony pelvis. Disc desiccation, L5-S1 and to a lesser extent L4-5. There is normal alignment. The conus medullaris ends at pedicle of L1 with normal signal. T12-L1: No disc herniation. No neuroforamina stenosis. L1-2: No disc herniation. No neuroforamina stenosis. L2-3: Broad-based disc bulging. Facet joint hypertrophy. No compression upon neural elements. L3-4: Broad-based disc bulging. Facet joint hypertrophy. No compression upon neural elements. L4-5: Broad-based disc bulging. Facet joint and ligamentum flavum hypertrophy. Reduced AP diameter of the thecal sac and the neural foramina. No compression upon neural elements. L5-S1: There is a right foraminal broad-based disc herniation abutting the right S1 nerve root. Facet joint hypertrophy. Right neuroforamina narrowing. No prevertebral compartment hematoma, mass or fluid collection. Hyperintense T2/cystic lesion in the left kidney. IMPRESSION: Right foraminal broad-based disc herniation L5-S1 abutting the right S1 nerve root on its lateral recess and likely encroaching right L5. Spondylosis at L4-5 without compression upon neural elements. Calcium metabolic disorder/osteopenia versus osteoporosis. Assessment & Plan Assessment & Plan (1) Lumbosacral spondylosis: Code(s): M47.817 - Spondylosis without myelopathy or radiculopathy, lumbosacral region Category: Medical (2) Sacroiliac joint pain: Code(s): M53.3 - Sacrococcygeal disorders, not elsewhere classified Category: Medical (3) Lumbar degenerative disc disease: Code(s): M51.369 - Other intervertebral disc degeneration, lumbar region without mention of lumbar back pain or lower extremity pain Category: Medical (4) Fibromyalgia: Code(s): M79.7 - Fibromyalgia Category: Medical (5) Sacroiliitis: Code(s): M46.1 - Sacroiliitis, not elsewhere classified Category: Medical (6) Lumbar radiculopathy: Code(s): M54.16 - Radiculopathy, lumbar region Category: Medical Plan The patient will be referred back to [facility] for further management of back pain with radiculopathy due to the lack of relief from interventional procedures as discussed above. Given the osteoporosis, steroid use is contraindicated, and alternative pain management strategies such as radiofrequency ablation may be considered if positive response with repeated injections. We also reviewed management of fibromyalgia symptoms with dietary and lifestyle modifications, increase daily physical activity, and sleep hygiene. Continue gabapentin. All questions and concerns have been answered and patient agreed with the treatment plan. Follow up as needed. Patient was informed and verbally consented to the use of an ambient scribe for clinic note documentation during this visit. Coding Level of Care Code Est Pt Level 3 (41502) Complex EM visit Add On G2211 Diagnoses Lumbosacral spondylosis M47.817 Sacroiliac joint pain M53.3 Lumbar degenerative disc disease M51.369 Fibromyalgia M79.7 Sacroiliitis M46.1 Lumbar radiculopathy M54.16
[2025-07-07 09:57] VITALS: BP 138/68; PULSE 107; O2SAT 100; BMI 28.0
--- OUTSIDE RECORDS SUMMARY | 2025-07-07 11:30 | XMS_ITS | Encounter Summary ---
Author Organization [facility], Address [address] [place] [address] Phone Care Team Providers Care Applications Manager Name Role Phone Raymundo Mcdonald NP Primary Care Provider [phone] Encounter Details Date Type Department Care Team (Late st Contact Info) Description 10/10/2023 Documentation Only [facility], [address] [place] [address] [place], [place] [address] [place] [address] Social History Tobacco Use Types [...] on filedocumented in this encounter Care Teams Applications Manager Relationship Specialty Start Date End Date Raymundo Mcdonald NP [address] [place] [id number] PCP - General Nurse Practitioner 10/10/23 documented as of this encounter
--- OUTSIDE RECORDS SUMMARY | 2025-07-07 11:30 | XMS_ITS | Clinical Summary ---
Author Organization [facility] Address [address] [place] [address] Phone Care Team Providers Care Hand Binder Cutter Name Role Phone Raymundo Mcdonald NP [...] Devices Not on file Insurance [employer] [place] [address] [place] [address] [address] [place] [address] [address] [employer] [id number] Care Teams Hand Binder Cutter Relationship Specialty Start Date End Date Raymundo Mcdonald NP [facility] [place] [address] PCP - General Nurse Practitioner 08/03/23 Additional Source Comments The information contained in this document represents components of the legal health record. It is not the complete legal health record.[facility]
--- OUTSIDE RECORDS SUMMARY | 2025-07-07 11:30 | XMS_ITS | Clinical Summary ---
Author Organization [facility], Address [address] [place] [address] [place] [address] Phone Care Team Providers Care Leasing Property Manager Name Role Phone Raymundo Mcdonald NP Primary Care Provider [phone] Allergies Active Allergy Reactions Criticality Noted Date [...] PCV) 017 Influenza Vaccine (#1) 2025 Insurance [facility] Medicaid Care Teams Leasing Property Manager Relationship Specialty Start Date End Date Raymundo Mcdonald NP [address] [place] [address] PCP - General Nurse Practitioner 10/10/23
--- OUTSIDE RECORDS SUMMARY | 2025-07-07 11:30 | XMS_ITS | Clinical Summary ---
Author Organization [employer] Address [address] [facility] [address] [place] [address] Care Team Providers Care Service Station Equipment Mechanic Name Role Phone Unavailable Primary Care Provider [...]
== END 2025-07-07 10:18 | disposition home or self-care (01) ==
PROVIDERS: PCP Nurse Practitioner Family; Visit Provider Nurse Practitioner Family
DX: M47.817 Spondylosis without myelopathy or radiculopathy, lumbosacral region (principal); M53.3 Sacrococcygeal disorders, not elsewhere classified; M51.369 Other intervertebral disc degeneration, lumbar region without mention of lumbar back pain or lower extremity pain; M79.7 Fibromyalgia; M46.1 Sacroiliitis, not elsewhere classified; M54.16 Radiculopathy, lumbar region
CPT/HCPCS: 99213

== ENCOUNTER → 2025-07-07 09:52 | Outpatient (BNVA) | payer OTHER, SELFPAY | PROVIDERS: PCP Nurse Practitioner Family; Visit Provider Nurse Practitioner Family | DX: M47.817 Spondylosis without myelopathy or radiculopathy, lumbosacral region (principal); M53.3 Sacrococcygeal disorders, not elsewhere classified; M51.369 Other intervertebral disc degeneration, lumbar region without mention of lumbar back pain or lower extremity pain; M79.7 Fibromyalgia; M46.1 Sacroiliitis, not elsewhere classified; M54.16 Radiculopathy, lumbar region | CPT/HCPCS: 99212 ==

== ENCOUNTER 2025-07-22 09:23 | Outpatient (REF) | payer OTHER, SELFPAY ==
--- NOTE | ~2025-07-22 | US_ITS ---
EXAMINATION: US COMPLETE ABDOMEN WITH LIVER ELASTOGRAPHY CLINICAL INFORMATION: Abnormal LFT. COMPARISON: Ultrasound abdomen 10/31/2023 TECHNIQUE: Real-time imaging of the abdominal viscera. Noninvasive ultrasound liver fibrosis assessment is performed using Sabrina ElastPQ point quantification shear wave elastography (pSWE) with a C5-2 MHz transducer. Multiple elastography samples are obtained. FINDINGS: PANCREAS: The visualized pancreatic head and body are normal in appearance. The remainder of the pancreas is obscured from visualization by the overlying bowel gas. ABDOMINAL AORTA: Distal aorta is obscured. Normal caliber of the visualized aorta. INFERIOR VENA CAVA: Visualized portions are normal. LIVER: The liver demonstrates normal contour. Increased parenchymal echogenicity. No focal lesion or intrahepatic biliary duct dilatation. The right lobe measures 20.2 cm in length. The left lobe measures 13 cm in length. Portal flow is hepatopedal Shear wave liver elastography median stiffness is 1.65 m/s (reference: normal median stiffness is 1.3 m/s or less). (Previously measuring 1.68 m/s) IQR/median stiffness to assess sampling precision is 0.18 (reference: good quality data set is IQR/median stiffness of 0.15 or less). GALLBLADDER: The gallbladder is physiologically distended without evidence of stones, sludge, polyps, wall thickening or pericholecystic fluid. COMMON BILE DUCT: Normal in caliber measuring 0.3 cm in diameter. RIGHT KIDNEY: No hydronephrosis. No renal calculi. 1.1 cm midpole anechoic avascular cyst.. The kidney measures 7.2 cm in maximum dimension. LEFT KIDNEY: No hydronephrosis. No renal calculi or focal parenchymal lesions. The kidney measures 11.1 cm in maximum dimension. SPLEEN: Unremarkable. The spleen measures 7.6 cm in maximum dimension. FREE FLUID: None seen. US/US abdomen comp w elastography IMPRESSION: 1. Hepatomegaly. There is generalized increase in hepatic echotexture, consistent with fatty infiltration or hepatocellular disease. Please correlate clinically. No focal hepatic mass or intrahepatic biliary duct dilatation is seen. 2. Liver elastography: Median stiffness measures 1.6 cm/s. ( This previously measured 1.6 cm/s on the prior ultrasound of 10/31/2023). *Liver Stiffness less than 1.7 m/s: In the absence of other known clinical signs, rules out compensated advanced chronic liver disease. REFERENCE: Society of Radiologists in Ultrasound Liver Stiffness Thresholds (2020): LIVER STIFFNESS THRESHOLDS: *Liver Stiffness equal or less than 1.3 m/s: High probability of being normal. *Liver Stiffness less than 1.7 m/s: In the absence of other known clinical signs, rules out compensated advanced chronic liver disease. *Liver Stiffness 1.7-2.1 m/s: Suggestive of compensated advanced chronic liver disease but need further test for confirmation. *Liver Stiffness over 2.1 m/s: Rules in compensated advanced chronic liver disease. *Liver Stiffness over 2.4 m/s: Suggestive of clinically significant portal hypertension. QUALITY OF DATA SET: *IQR/Median value equal or less than 0.15 implies a quality data set. *IQR/Median value over 0.15 implies a poor quality data set. SIGNIFICANT CHANGE FROM PRIOR EXAM: Significant change if liver stiffness measurement is 10% or greater from prior exam. OTHER CONSIDERATIONS: The stage of liver fibrosis may be overestimated in the setting of acute hepatitis, liver inflammation, elevated liver function tests, hepatic vascular congestion, obstructive cholestasis, non-fasting state, and infiltrative diseases such as amyloidosis and lymphoma. In some patients with NAFLD, the liver stiffness thresholds for compensated advanced chronic liver disease may be lower. In causes other than viral hepatitis and NAFLD, liver stiffness thresholds are not well established. Electronically signed by: Forrest Huffman MD 07/22/2025 03:22 PM [facility]
== END 2025-07-22 09:24 | disposition home or self-care (01) ==
LOC: HO.US 09:23
PROVIDERS: PCP Nurse Practitioner Family; Visit Provider Internal Medicine Gastroenterology
DX: R10.9 Unspecified abdominal pain (principal); R74.8 Abnormal levels of other serum enzymes
CPT/HCPCS: 76700; 76981

== ENCOUNTER 2025-08-18 11:14 | Outpatient (AMB) | payer OTHER, SELFPAY ==
--- NOTE | 2025-08-18 11:24 | A.SPINEOV_ITS ---
Intake Visit Reasons: follow up after pain management Intake Note: Ms. Bulmaro Martinez is here today to F/u after pain management. Solvent Station Attendant Required: Yes Solvent Station Attendant Language: Roving Carrier Services: Solvent Station Attendant Present Solvent Station Attendant Name: Anabel Butler, LM Allergies Sulfa (Sulfonamide Antibiotics) (SULFA (SULFONAMIDE ANTIBIOTICS)) Allergy (Intermediate, Verified 07/07/25 09:57) HIVES Latex, Natural Rubber Allergy (Mild, Verified 07/07/25 09:57) Rash egg Allergy (Verified 07/07/25 09:57) Abdominal Pain strawberry Allergy (Verified 07/07/25 09:57) Abdominal Pain aspirin (ASPIRIN) Adverse Reaction (Intermediate, Verified 07/07/25 09:57) ABD PAIN morphine (MORPHINE) Adverse Reaction (Intermediate, Verified 07/07/25 09:57) Abdominal Pain almond Allergy (Severe, Uncoded 07/03/25 11:08) Stomack pain Lactose intollerance Allergy (Severe, Uncoded 07/03/25 11:08) Stomach pain, nausceau Assessment & Plan Assessment & Plan (1) Fibromyalgia: Code(s): M79.7 - Fibromyalgia Category: Medical (2) Diffuse pain: Code(s): R52 - Pain, unspecified Category: Medical Plan The patient is a pleasant 60 year old female who comes in today for follow up. After her last visit she was referred to our colleagues in pain management for right-sided L5 transforaminal injection. Unfortunately, she reports little to no relief from this of her pain. To recap the patient has multifactorial pain, and has concurrent diagnoses of fibromyalgia, depression, and is ROSE+ however is not considered to have inflammatory arthritis. She has essentially diffuse body pain with a component of leg pain. She had multiple injections with our colleagues from pain management since her last office visit, and reports no relief of her pain symptoms from those injections. Her lumbar spine MRI is largely unremarkable from a surgical standpoint aside from some mild compression near L5 which has not responded to injections. Her pain is out of proportion to imaging findings. I do not think that neurosurgical intervention would be helpful in this patient's unfortunate case. I encouraged her to follow up with our colleagues in pain management to discuss the possibility of spinal cord stimulator, which also may not be successful at treating her pain, as I am not convinced this diffuse debilitating body pain is originating from her lumbar spine. I did also discuss the possibility of referral for 2nd opinion regarding physiatry/pain management, however she would like to discuss spinal cord stimulator treatment with our colleagues here at [facility] before considering that. I encouraged her to do so. Fran Dia MD,PhD [facility] Coding Level of Care Code Est Pt Level 2 (71130) Diagnoses Fibromyalgia M79.7 Diffuse pain R52
== END 2025-08-18 11:58 | disposition home or self-care (01) ==
LOC: HO.HNS 11:14
PROVIDERS: PCP Nurse Practitioner Family; Visit Provider Physician Assistant
DX: M79.7 Fibromyalgia (principal); R52 Pain, unspecified
CPT/HCPCS: 99212

== ENCOUNTER → 2025-08-18 11:14 | Outpatient (BNVA) | payer OTHER, SELFPAY | PROVIDERS: PCP Nurse Practitioner Family; Visit Provider Physician Assistant | DX: M79.7 Fibromyalgia (principal); R52 Pain, unspecified | CPT/HCPCS: 99212 ==

== ENCOUNTER 2025-09-03 14:23 | Outpatient (AMB) | payer OTHER, SELFPAY ==
[2025-09-03 14:26] VITALS: BP 140/90; BMI 27.5
--- NOTE | 2025-09-03 14:26 | A.OFFVIS_ITS ---
Vital Signs 09/03/25 14:26 Height 5 ft 3 in Weight 155 lb BMI 27.5 BP 140/90 H Blood Pressure Location Rt brachial Position Sitting Intake Visit Reasons: 6 mo follow up Intake Note: Patient presents 6 month follow up for migraines/Involuntary movements Electric Tool Repairer Required: Yes Electric Tool Repairer Services: Electric Tool Repairer Offered & Declined Electric Tool Repairer Name: dtr Accompanied by: Self / Same As Patient Allergies Sulfa (Sulfonamide Antibiotics) (SULFA (SULFONAMIDE ANTIBIOTICS)) Allergy (Intermediate, Verified 09/03/25 14:26) HIVES Latex, Natural Rubber Allergy (Mild, Verified 09/03/25 14:26) Rash egg Allergy (Verified 09/03/25 14:26) Abdominal Pain strawberry Allergy (Verified 09/03/25 14:26) Abdominal Pain tomato Allergy (Verified 09/03/25 14:31) Unknown aspirin (ASPIRIN) Adverse Reaction (Intermediate, Verified 09/03/25 14:26) ABD PAIN morphine (MORPHINE) Adverse Reaction (Intermediate, Verified 09/03/25 14:26) Abdominal Pain almond Allergy (Severe, Uncoded 09/03/25 14:26) Stomack pain Lactose intollerance Allergy (Severe, Uncoded 09/03/25 14:26) Stomach pain, nausceau HPI Comments Details: 60-yr-old female presents for f/u for migraine, however, she would also like to discuss other pain symptoms she has been experiencing. She is accompanied by her daughter who helps with Montserratian interpretation, per patient request. She states she has not been feeing well overall- like her whole body is falling apart. She is feeling tired of being in constant pain, which is exacerbating her anxiety and depression. She is having frequent GI s/s- nausea, vomiting, constipation. She also reports pain throughout her body: * Feels like there are crystals breaking in her neck and back of head sensation * She is having chronic low back pain that radiates into RLE, but a few days ago she started having pain radiating down into the left buttock and upper leg She is also having numbness and tingling in her hands and her feet. * Sometimes her left 3rd-5th fingers became stuck * She is using a cane. She has had episodes of trying to walk forward, but then ends up walking backwards. She is spending more time in bed, cannot do many of her daily activities. She does not report tremor today. She is having increased migraines- occurring daily. She states that the symptoms above are not a/w her migraine. 03/04/2025, HPI: August 2024 lab work was unremarkable other than mildly elevated WBC 12 (WBC has been running between 10 and 13 since 2023), elevated vitamin B6 at 28, follow-up vitamin B6 was 68 in September 2024. She states she has low level headaches most days but no severe migraines, unless her Emgality is delivered late. Then, she will have daily severe migraine until she resumes her Emgality. Using as needed medication approx 6-7 days per month. The Ubrelvy helps better than the Rizatriptan- uses one or the other depending on severity. She states her tremor is stable, better since she stopped Vistaril. 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 She states her balance is poor, has difficulty standing for too long. She has had some falls. She does use a cane. [facility] Medical History Pain Low vitamin B12 level Smoker Numbness Wheezing Chronic radicular pain of lower back Foot pain, bilateral Joint pain in both hands Breast pain Hypokalemia Breast pain, right Allergies Migraines Renal calculi Bipolar disorder Chronic abdominal pain Osteoporosis Hyperparathyroidism Multinodular thyroid Depression Fibromyalgia Thrombocytosis Leukocytosis GERD (gastroesophageal reflux disease) Thyroid cancer PONV (postoperative nausea and vomiting) Elevated cholesterol Difficulty swallowing Vitamin D deficiency Anxiety Pulmonary nodule Asthma HTN (hypertension) Surgical History H/O pyloroplasty (03/27/24) History of excision of mass Hx of thyroidectomy H/O esophagogastroduodenoscopy H/O colonoscopy History of bilateral oophorectomy Hx of cholecystectomy S/P excision of lipoma History of total abdominal hysterectomy Hx of appendectomy Family History Father Diabetes mellitus Skin cancer Prostate cancer Mother HTN (hypertension) High cholesterol Mental health disorder Maternal Grandfather Myocardial infarction Maternal Grandmother No problems noted. Paternal Grandfather No problems noted. Paternal Grandmother Breast cancer Sister Mental health disorder Social History Household Members: None Housing: Apartment Are you a primary resident care director to a significant other at home: No Do you presently have visiting nurse or other home services: No Alcohol intake: never Patient Tobacco Use Status: Current everyday Tobacco user Tobacco use type: Cigarette Cigarettes Per Day: 5 Years Smoked: 20 e-Cigarette/Vaping Use: Never Used Second Hand Smoke Exposure: No Advance Directives Date on File: 10/05/16 service: No Current occupational status: disabled Sexual orientation: Straight/Heterosexual Gender identity: Female Cognitive needs: No Hearing needs: No Vision needs: Yes Physical Exam Exam Exam: Alert and oriented x3 Statin and weepy at times, but overall pleasant and appropriate affect Slow to stand, steady gait with cane. Vital Signs: Last Vital Signs BP 140/90 H 09/03/25 14:26 BMI result Body Mass Index 27.5 Const General: cooperative and no acute distress Resp Effort & Inspection: normal respiratory effort and able to speak in complete sentences Psych Mental Status: mental status grossly normal Affect: normal affect Attitude: cooperative Assessment & Plan Assessment & Plan (1) Migraines: Code(s): G43.909 - Migraine, unspecified, not intractable, without status migrainosus Category: Medical Qualifiers: Intractability: not intractable Migraine type: migraine (< 15 days per month) without aura Status migrainosus presence: without status migrainosus Qualified Code(s): G43.009 - Migraine without aura, not intractable, without status migrainosus (2) Tremor: Comment: Improved Code(s): R25.1 - Tremor, unspecified Category: Medical (3) Involuntary movements: Comment: Improved Code(s): R25.9 - Unspecified abnormal involuntary movements Category: Medical (4) Numbness and tingling of upper and lower extremities of both sides: Code(s): R20.0 - Anesthesia of skin; R20.2 - Paresthesia of skin Category: Medical (5) Degenerative disc disease, cervical: Code(s): M50.30 - Other cervical disc degeneration, unspecified cervical region Category: Medical (6) Numbness and tingling of upper and lower extremities of both sides: Code(s): R20.0 - Anesthesia of skin; R20.2 - Paresthesia of skin Category: Medical Plan For BUE and BLE paresthesias, in the setting of left 3rd through 5th finger locking in flexion, and generalized musculoskeletal and joint pain: We will check labs for common etiologies We will arrange for a BUE and BLE EMG/NCS For sleep: We continue cyproheptadine 4 mg q.h.s. p.r.n.- this may help headaches as well. For tremor- Improved C-spine XR- Mild degenerative changes. Brain MRI w/wo- stable mild nonspecific white matter disease and prominent perivascular spaces in supratentorial compartment. No findings to explain pt's movement s/s. Tips currently given to break freezing episodes. Future considerations: Consider trial of CD-LD, DaTscan, PT. ? For headache prevention: Continue riboflavin 200 mg b.i.d.. Continue magnesium 400-500 mg q.h.s., may hold for GI side effects. Continue Amitriptyline 50mg qhs- for sleep as well- monitor mood. Resume Emgality 120mg sc q month as patient continues to experience for a 30% reduction in monthly migraine days with the use- We did call her pharmacy, and they stated that a delivery was sent at the beginning of August, in the next delivery would be sent at the beginning of September. Previous migraine tx trials: Topiramate 25-50mg qhs- not effective after > 12 wks. ? For acute migraine treatment: Continue sumatriptan prn Continue Rizatripatn 5-10 mg for now- unfortunately not always effective. Continue Ubrogepant (Ubrelvy) 100mg tab, as this is effective, 1/2 - 1 tab (50- 100mg) at onset of headache, may repeat in 2 hours. Max of 2 tabs (200mg) per 24 hours. May adjunct with Rizatriptan, or OTC Tylenol 650mg q 4 hours, Ibuprofen 600mg q 6 hours, or Naproxen 440mg q 12 hrs prn. May take Ubrelvy w/ Rizatriptan. May try taking Ubrelvy the week before next Emgality injection due. Previous migraine tx trials: Sumatriptan- ineffective. Rizatriptan not fully effective. ? Will follow-up upon review of above and patient to follow-up in clinic in 6 months or sooner prn. Orders: Orders Comprehensive Met. Panel 09/03/25 E55.9 - Vitamin D deficiency, unspecified, I10 - Essential (primary) hypertension, R76.8 - Other specified abnormal immunological findings in serum, R79.89 - Other specified abnormal findings of blood chemistry Hemoglobin A1c 09/03/25 E55.9 - Vitamin D deficiency, unspecified, I10 - Essential (primary) hypertension, R76.8 - Other specified abnormal immunological findings in serum, R79.89 - Other specified abnormal findings of blood chemistry Complement C3 09/03/25 E55.9 - Vitamin D deficiency, unspecified, I10 - Essential (primary) hypertension, R76.8 - Other specified abnormal immunological findings in serum, R79.89 - Other specified abnormal findings of blood chemistry Complement C4 09/03/25 E55.9 - Vitamin D deficiency, unspecified, I10 - E ssential (primary) hypertension, R76.8 - Other specified abnormal immunological findings in serum, R79.89 - Other specified abnormal findings of blood chemistry Anti DNA DS Antibody 09/03/25 E55.9 - Vitamin D deficiency, unspecified, I10 - Essential (primary) hypertension, R76.8 - Other specified abnormal immunological findings in serum, R79.89 - Other specified abnormal findings of blood chemistry Erythrocyte Sedimentation Rate 09/03/25 E55.9 - Vitamin D deficiency, unspecified, I10 - Essential (primary) hypertension, R76.8 - Other specified abnormal immunological findings in serum, R79.89 - Other specified abnormal findings of blood chemistry C Reactive Protein 09/03/25 E55.9 - Vitamin D deficiency, unspecified, I10 - Essential (primary) hypertension, R76.8 - Other specified abnormal immunological findings in serum, R79.89 - Other specified abnormal findings of blood chemistry Comprehensive [place]. Panel Fast 09/03/25 E55.9 - Vitamin D deficiency, unspecified, I10 - Essential (primary) hypertension, R76.8 - Other specified abnormal immunological findings in serum, R79.89 - Other specified abnormal findings of blood chemistry Vitamin B12 and Folate 09/03/25 E55.9 - Vitamin D deficiency, unspecified, I10 - Essential (primary) hypertension, R76.8 - Other specified abnormal immunological findings in serum, R79.89 - Other specified abnormal findings of blood chemistry Vitamin D 25-OH (D2 and D3) 09/03/25 E55.9 - Vitamin D deficiency, unspecified, I10 - Essential (primary) hypertension, R76.8 - Other specified abnormal immunological findings in serum, R79.89 - Other specified abnormal findings of blood chemistry Angiotensin Converting Enzyme 09/03/25 E55.9 - Vitamin D deficiency, unspecified, I10 - Essential (primary) hypertension, R76.8 - Other specified abnormal immunological findings in serum, R79.89 - Other specified abnormal findings of blood chemistry NE electromyogram (EMG) 09/03/25 M51.369 - Other intervertebral disc degeneration, lumbar region without mention of lumbar back pain or lower extremity pain, R20.0 - Anesthesia of skin, R20.2 - Paresthesia of skin NE nerve conduction velocity 09/03/25 M50.30 - Other cervical disc degeneration, unspecified cervical region, R20.0 - Anesthesia of skin, R20.2 - Paresthesia of skin Coding Level of Care Code Est Pt Level 4 (87952) Add On Problem Visit Only Diagnoses Migraine without aura and without status migrainosus, not intractable G43.009 Intractability: not intractable Migraine type: migraine (< 15 days per month) without aura Status migrainosus presence: without status migrainosus Tremor R25.1 Involuntary movements R25.9 Numbness and tingling of upper and lower extremities of both sides R20.0; R20.2 Degenerative disc disease, cervical M50.30
--- OUTSIDE RECORDS SUMMARY | 2025-09-03 15:33 | XMS_ITS | Clinical Summary ---
Author Organization [email or web address] Address [address] [facility] 7[address] [place] [address] Care Team Providers Care Senior Sas Programmer Name Role Phone Unavailable Primary Care Provider [...]
--- OUTSIDE RECORDS SUMMARY | 2025-09-03 15:33 | XMS_ITS | Clinical Summary ---
Author Organization [facility] Address [address] [place] [address] Care Team Providers Care Tankage Grinder Operator Name Role Phone Cr Madera MD Primary Care Provider [phone] Surgical History Surgery Date Site/Laterality Comments VENTRAL [...] Depression Screening 09/04/2024 COVID-19 Vaccine (1 - 2024-2 6 season) 2025 Influenza Vaccine (#1) 2025 HIB [...] age to complete this topic Care Teams Tankage Grinder Operator Relationship Specialty Start Date End Date Cr Madera MD [address] [place] [address] PCP - General Internal Medicine 07/05/17
--- OUTSIDE RECORDS SUMMARY | 2025-09-03 15:33 | XMS_ITS | Encounter Summary ---
Author Organization [facility], Address [address] [place] [address] Phone Care Team Providers Care Telemarketing Representative Name Role Phone Raymundo Mcdonald NP Primary Care Provider Encounter Details Date Type Department Care Team (Late st Contact Info) Description 10/10/2023 Documentation Only [facility], [address] [place] [address] [place], [place] [address] [place] [address] Social History Tobacco Use Types [...] on filedocumented in this encounter Care Teams Telemarketing Representative Relationship Specialty Start Date End Date Raymundo Mcdonald NP [address] [place] [id number] PCP - General Nurse Practitioner 10/10/23 documented as of this encounter
--- OUTSIDE RECORDS SUMMARY | 2025-09-03 15:33 | XMS_ITS | Clinical Summary ---
Author Organization [facility], Address [address] [place] [address] [place] [address] Phone Care Team Providers Care Bricklayer'S Assistant Name Role Phone Raymundo Mcdonald NP Primary Care Provider [phone] Allergies Active Allergy Reactions Criticality Noted Date [...] PCV) 017 Influenza Vaccine (#1) 2025 Insurance [facility] Medicaid Care Teams Bricklayer'S Assistant Relationship Specialty Start Date End Date Raymundo Mcdonald NP [address] [place] [address] PCP - General Nurse Practitioner 10/10/23
--- OUTSIDE RECORDS SUMMARY | 2025-09-03 15:33 | XMS_ITS | Clinical Summary ---
Author Organization [facility] Address [address] [place] [id number] Phone Care Team Providers Care Naval Inspector Name Role Phone Raymundo Mcdonald NP Primary [...] Devices Not on file Insurance [place] [address] [place] [address] [place] [address] [place] [address] [employer] [place] [id number] Care Teams Naval Inspector Relationship Specialty Start Date End Date Raymundo Mcdonald NP [facility] [place] [address] PCP - General Nurse Practitioner 08/03/23 Additional Source Comments The information contained in this document represents components of the legal health record. It is not the complete legal health record.[facility]
== END 2025-09-03 16:02 | disposition home or self-care (01) ==
LOC: HO.HSMS 14:24
PROVIDERS: PCP Nurse Practitioner Family; Visit Provider Nurse Practitioner Family
DX: G43.009 Migraine without aura, not intractable, without status migrainosus (principal); R25.1 Tremor, unspecified; R25.9 Unspecified abnormal involuntary movements; R20.0 Anesthesia of skin; R20.2 Paresthesia of skin; M50.30 Other cervical disc degeneration, unspecified cervical region
CPT/HCPCS: 99214

== ENCOUNTER → 2025-09-03 14:23 | Outpatient (BNVA) | payer OTHER, SELFPAY | PROVIDERS: PCP Nurse Practitioner Family; Visit Provider Nurse Practitioner Family | DX: G43.009 Migraine without aura, not intractable, without status migrainosus (principal); M50.30 Other cervical disc degeneration, unspecified cervical region; R25.1 Tremor, unspecified; R20.0 Anesthesia of skin; R20.2 Paresthesia of skin; R25.9 Unspecified abnormal involuntary movements; Z79.899 Other long term (current) drug therapy | CPT/HCPCS: 99212 ==